=== PATIENT | male | born 1965 | race Caucasian/White ===

== ENCOUNTER 2021-08-12 17:39 | Emergency (ER) | payer SELFPAY ==
[2021-08-12 17:48] VITALS: BP 130/74; PULSE 84; RESP 17; TEMP 36.8; O2SAT 97
[2021-08-12 17:53] VITALS: RESP 17
[2021-08-12] MEDS: Phenylephrine SPRAY 1% 15 ML BTL NS (18:05)
--- NOTE | 2021-08-12 18:06 | W.ED.GENAD ---
Discharge Plan Disposition Patient Disposition: HOME Condition: Good Discharge Details Clinical Impression: Acute anterior epistaxis Primary Care Provider: Marc Hair ED Provider: Thierry Goyal Home Meds and New Rx's Prescriptions: Continued lisinopril-hydrochlorothiazide 1 EACH tablet 1 tab PO DAILY RF: 0 Discharge Instructions Instructions: Nosebleed (ED) Additional Instructions: At this time the nosebleed has been stopped with the nasal packing. Please take this out Thursday afternoon. If you do not feel comfortable taking it out at home we are happy to take it out here. If you notice a small amount of bleeding put the nasal clamp back on. If you notice continued bleeding please call your family doctor or return immediately for reassessment. Please use a humidifier to help keep your nose moist, and apply Vaseline to the inside to prevent future bleeds. If you notice any worsening of your symptoms, or any new symptoms such as vomiting, diarrhea, fever, chills, shortness of breath, chest pain, numbness, weakness, or fainting , please return immediately to the emergency department for reevaluation. Please follow up with your primary care provider as soon as possible for reassessment and reevaluation. As always, it was a pleasure participating in your medical care today. Referrals: Marc Hair [Primary Care Provider] - Medical Decision Making This is a 56-year-old male with a past medical history of hypertension who is not on any blood thinners who presents today for nosebleed. Patient states that 2 hours ago he was blowing his nose pretty hard when he started bleeding out of the right nostril. He has had mild nosebleeds in the past, but never this bad. Patient denies any headache. He denies any other complaints at this time. He denies any difficulty breathing. Exam demonstrates mild anterior nosebleed. Pressure did not stop the bleeding with pressure was removed. Phenylephrine was instilled into the area, and a small Rhino Rocket was placed. Patient had complete resolution of the bleeding after this. He tolerated well. No blood in the posterior oropharynx. Patient stable for discharge. Vital signs stable. Patient feels well. Recommend removal of the Rhino Rocket in 36 to 48 hours, or return for removal here. Discussed red flags which to return. I have extensively reviewed the treatment plan and discharge instructions with the patient. I have addressed all patient concerns at this time. The patient was made aware of what symptoms to monitor for that would warrant a return to the emergency department. Discussed the plan with the patient, they demonstrate verbal understanding and agreement with our assessment and plan at this time. The documentation in this chart was dictated using [employer] dictation software. Please excuse any dictation errors. HPI General Date/Time Provider Initiated Documentation: 08/12/21 17:40. HPI Narrative: This is a 56-year-old male with a past medical history of hypertension who is not on any blood thinners who presents today for nosebleed. Patient states that 2 hours ago he was blowing his nose pretty hard when he started bleeding out of the right nostril. He has had mild nosebleeds in the past, but never this bad. Patient denies any headache. He denies any other complaints at this time. He denies any difficulty breathing. Related Data Home Medications Medication Instructions Recorded Confirmed lisinopril-hydrochlorothiazide 1 tab PO DAILY 09/06/14 08/12/21 Allergies Allergy/AdvReac Type Severity Reaction Status Date / Time No Known Allergies Allergy Unverified 08/12/21 18:03 General Stated Complaint: GenMedical ABDULLAHI: 4 Review of Systems All systems reviewed & are unremarkable except as noted in HPI and below PFSH All Active Problems Acute anterior epistaxis (Acute) Social History Smoking risk assessment performed?: No Alcohol Intake: current Alcohol Intake frequency: a few times a week Alcohol type: beer and hard liquor Do you feel safe at home: Yes Do you feel safe in your relationship?: Yes Exam Narrative Exam Narrative: 1.Const: Well-nourished, Well-developed, appearing stated age 2.Eyes: PERRL, no conjunctival injection, and symmetrical lids. 3.ENT: Atraumatic external nose and ears. Moist MM. Neck: Symmetric, trachea midline, No thyromegaly. Left nostril is unremarkable, right nostril demonstrates mild anterior bleed, no evidence of bleeding down the posterior oropharynx. No deformity. 4.CVS: +S1/S2, No murmurs or gallops. Peripheral pulses 2+ and equal in all extremities. Brisk capillary refill in all extremities. 5.RESP: Unlabored respiratory effort. Clear to auscultation bilaterally. No wheezes rales or rhonchi 6.GI: Soft, Nontender/Nondistended, No hepatosplenomegaly. No guarding or rebound. 7.MSK: Normocephalic/Atraumatic, Extremities w/o deformity or ttp No cyanosis or clubbing, Normal movement of all extremities 8.Skin: Warm, Dry. No rashes or lesions. 9.Neuro: motor power connector II-XII grossly intact. Sensation grossly intact, no focal neurologic deficits. 10.Psych: (AAO) x3. Appropriate mood and affect Course Vital Signs Vital signs: Vital Signs Temperature 36.8 C 08/12/21 17:48 Pulse 84 08/12/21 17:48 Respiratory Rate 17 08/12/21 17:48 Blood Pressure 130/74 08/12/21 17:48 Pulse Oximetry 97 08/12/21 17:48 Temperature 36.8 C 08/12/21 17:48 Temperature Source Temporal Artery Scan 08/12/21 17:48 Pulse 84 08/12/21 17:48 Respiratory Rate 17 08/12/21 17:53 Respiratory Effort Non-Labored 08/12/21 17:53 Respiratory Depth Normal 08/12/21 17:53 Respiratory Pattern Normal 08/12/21 17:53 Blood Pressure 130/74 08/12/21 17:48 Blood Pressure Position Sitting 08/12/21 17:48 Pulse Oximetry 97 08/12/21 17:48 Oxygen Delivery Method Room Air 08/12/21 17:48 Oxygen Flow Rate 0 08/12/21 17:48 Pain Level 0 08/12/21 17:48 PAWSS Have you Been Recently Intoxicated or Drunk Within the Last 30 days?: No Have you Ever Experienced Previous Episodes of Alcohol Withdrawal?: No Have you ever Experienced Withdrawal Seizures?: No Have you ever Experienced Delirium Tremens(DT)s?: No Have you ever undergone Alcohol Rehabilitation Treatment (i.e, inpt ot outpatient treatment programs)?: No Have you ever Experienced Blackouts?: No Have you ever Combined Alcohol with other Downers within the last 90 days?: No Have you ever Combined Alcohol with any other Substance of Abuse during the last 90 days?: No Positive Blood Alcohol level on Presentation? [PCS.BAL]: No Evidence of Increased Autonomic Activity (i.e. HR>120, tremor, sweating, agitation, nausea)?: No Result: 0
== END 2021-08-12 18:14 | disposition home or self-care (01) ==
LOC: ER 18:18
PROVIDERS: Emergency Provider Student in an Organized Health Care Education/Training Program; PCP Physician Assistant
DX: R04.0 Epistaxis (principal)
CPT/HCPCS: 30901

== ENCOUNTER 2022-04-05 09:53 | Emergency (ER) | payer MEDICAID, SELFPAY ==
[2022-04-05] VITALS (29 sets, daily range): BP systolic 179–269; BP diastolic 94–177; PULSE 61–95; RESP 15–29; TEMP 36.2; O2SAT 95–99
--- NOTE | 2022-04-05 10:00 | RT.EKG_ITS ---
APPROVED REPORT Exam: Resting ECG Reason for Exam: high blood pressure Patient Location: E HR:79 bpm ECG Measurements Heart Rate 79 AXIS MT 170 P 42 QRSd 109 QRS -31 QT 428 T 127 QTc 491 Conclusion Sinus rhythm...normal P axis, V-rate 60- 99 Left atrial enlargement...P, P'>60mS, <-0.15mV V1 LVH with secondary repolarization abnormality...multi-LVH criteria, abnrm ST-T
--- NOTE | 2022-04-05 10:00 | DI.CT_ITS ---
Exam(s) CT HEAD WO EXAM: CT HEAD WO CLINICAL HISTORY: headache/ HTN. TECHNIQUE: Imaging Protocol: Axial computed tomography images with coronal and sagittal reformatted images were created and reviewed COMPARISON: No exams were available for comparison FINDINGS: Ventricles and Extra axial spaces: Normal in size and morphology for the patient's age. Hemorrhage: 7 millimeter rounded focus of increased attenuation in the right thalamus with mild surro unding edema. Findings are suspicious for acute hemorrhage. There is additional tiny focus in the i n the left thalamus with so also could represent acute hemorrhage. Cerebral parenchyma: White matter changes of small vessel disease. No significant atrophy. Midline shift: None. Brainstem/Cerebellum: Normal. Calvarium: Normal. Visualized Paranasal sinuses/Mastoids: Opacification of the right frontal sinus. Near-total compassi on opacification of the left maxillary sinus. Mucosal thickening of right maxillary sinus. Mastoid air cells are clear Soft Tissues: Unremarkable. IMPRESSION: Bilateral foci of acute hemorrhage in the thalami, right greater than left RADIATION DOSE DELIVERED: 792.1mGy.cm Total DLP DATA REPOSITORY: All CT scans at this facility are submitted to the National Radiology Data Registry (NRDR) Dose Index Registry (DIR) with the [employer] (ACR). RADIATION OPTIMIZATION: All CT scans at this facility use at least one of these dose optimization te chniques: automated exposure control; mA and/or kV adjustment per patient size (includes targeted exa ms where dose is matched to clinical indication); or iterative reconstruction.
[2022-04-05] MEDS: Labetalol 100 MG/20 ML VIAL 20 MG IVP ×2 (10:31→11:12)
[2022-04-05 10:45] LABS: Abs Immature Grans 0.04 10^3/uL (0.0-0.06); Absolute Basophil Count 0.07 10^3/uL (0.0-0.2); Absolute Eosinophil Count 0.13 10^3/uL (0.0-0.7); Absolute Lymphocyte Count 1.15 10^3/uL (1.2-3.4); Absolute Monocyte Count 0.59 10^3/uL (0.1-0.8); Basophils % 0.6; Eosinophils % 1.2; HCT 39.3 % (40.0-50.0); HGB 13.8 g/dL (13.5-17.5); Immature Grans % 0.4; Lymphocytes % 10.3; MCH 29.9 pg (27.0-33.0); MCHC 35.1 % (32.0-36.0); MCV 85 fL (80-95); MPV 10.2 fL (8.0-11.0); Monocytes % 5.3; Neutrophils % 82.2; Platelet Count 181 10^3/uL (130-400); RBC 4.62 10^6/uL (4.36-5.78); RDW 12.8 % (11.8-14.1); RDW-SD 39.2 fL; WBC 11.18 10^3/uL (4.4-10.8)
[2022-04-05 10:48] LABS: Absolute Neutrophil Count 9.19 10^3/uL (1.2-6.7)
[2022-04-05 11:01] LABS: ALT 51 U/L (16-63); AST 41 U/L (15-37); Albumin 3.9 g/dL (3.4-5.0); Alkaline Phosphatase 71 U/L (46-116); Anion Gap 10.9 mmol/L (3-11); BUN 28 mg/dL (7-18); Bilirubin, Total 1.5 mg/dL (0.2-1.0); CO2 27.1 mmol/L (21.0-32.0); CREATININE 2.2 mg/dL (0.70-1.30); Calcium 9.4 mg/dL (8.5-10.1); Chloride 100 mmol/L (98-107); Glucose 122 mg/dL (74-106); Magnesium 1.9 mg/dL (1.8-2.4); Potassium 3.1 mmol/L (3.5-5.1); Sodium 138 mmol/L (136-145); Total Protein 8.2 g/dL (6.4-8.2)
[2022-04-05 11:06] LABS: Troponin I 76 ng/L (<or=60)
--- NOTE | 2022-04-05 11:46 | DI.VRAD_ITS ---
Addendum created by Flor Corral MD on 04/05/2022 11:51:45 AM EDT: THIS REPORT CONTAINS FINDINGS THAT MAY BE CRITICAL TO PATIENT CARE. The findings were verbally communicated by me to JOSE MCDANIEL via telephone conference at 11:51 AM EDT on 04/05/2022. The findings were acknowledged and understood. Initial report created on 04/05/2022 11:45:20 AM EDT: PROCEDURE INFORMATION: Exam: CT Head Without Contrast Exam date and time: 04/05/2022 11:31 AM Age: 56 years old Clinical indication: Stroke-like symptoms; Headache TECHNIQUE: Imaging protocol: Computed tomography of the head without contrast. Radiation optimization: All CT scans at this facility use at least one of these dose optimization techniques: automated exposure control; mA and/or kV adjustment per patient size (includes targeted exams where dose is matched to clinical indication); or iterative reconstruction. Other technique: STROKE PROTOCOL was implemented. COMPARISON: No relevant prior studies available. FINDINGS: Brain: Hyperattenuating foci are seen in the thalami bilaterally, consistent with hemorrhage, measuring 8 x 7 x 8 mm on the right side, and 3 x 4 x 3 mm on the left side. No evidence of acute territorial infarct. Quiñonez-white matter differentiation is maintained. Mild low attenuation in the periventricular white matter. This is a nonspecific finding most commonly seen in setting of microvascular ischemic change. No midline shift or mass effect. No extra-axial fluid collections or hemorrhage. Cerebral ventricles: No ventriculomegaly. Paranasal sinuses: Marked mucoperiosteal thickening in the maxillary sinuses and right frontal sinus. Moderate mucosal thickening in bilateral ethmoid air cells. No air-fluid levels. Mastoid air cells: Visualized mastoid air cells are well aerated. Bones/joints: Unremarkable. No acute fracture. Soft tissues: Unremarkable. IMPRESSION: 1. Bilateral acute intraparenchymal hemorrhage in the thalami, right greater than left. 2. Chronic sinusitis. ASSESSMENT: ASPECTS ([place] Stroke Program Early CT Score) is 10. Dictated and Authenticated by: Flor Corral MD. Ordering:JESICA Segundo MD
--- NOTE | 2022-04-05 11:48 | ED.GENADUL_ITS ---
Discharge Plan Disposition Patient Disposition: [facility] Condition: Critical Discharge Details Clinical Impression: Acute intracranial hemorrhage, Hypertensive emergency, Hypertension, uncontrolled, Decreased renal function Primary Care Provider: Unknown,Unknown ED Provider: Sanya Ferraro Discharge Data Discharge Date/Time-TO BE ENTERED AT DEPARTURE: 04/05/22 14:33 Medical Decision Making Patient presenting to the emergency department for chief complaint of headache and nausea with some associated blurred vision. Patient states that symptoms started about 6 days ago and was going to be seen last night but decided to wait till this morning. Patient was concerned about possibly having COVID but denies any other symptoms. Patient went to local urgent care who noted significant hypertension with blood pressure 280/180. Patient reports he had previously been on lisinopril/hydrochlorothiazide for his high blood pressure but his physician retired in 2017 and has never seen anybody or resume medication since running out. Patient was immediately referred to the emergency department. Upon arrival patient had blood pressure of 263/177. Physical exam showed no acute neurodeficit, normal gait, no sensory deficit, normal cranial nerve exam. And concern for hypertensive urgency/emergency. We will plan on checking labs, EKG, and CT imaging of the head. Pending results we will give IV labetalol with continuous monitoring. Patient is in no signs of respiratory failure and is protecting airway Please see physician interpretation for full interpretation of EKG but patient is in sinus rhythm, rate of 79. No findings to show STEMI but there are abnormalities noted with machine read of LVH Review of patient's labs show a slight elevation of WBC 11.18 along with elevated neutrophils and low lymphocytes CBC is otherwise unremarkable. Chemistry shows potassium of 3.1, BUN of 28 creatinine of 2.2 with a GFR of 30. Previous labs from 2017 showed GFR of 55. Glucose is 122 total bilirubin of 1.5 AST of 41 otherwise unremarkable CMP. Initial troponin is slightly elevated at 76 which I feel is secondary to hypertension but will continue to monitor and repeat. Patient's pressure still remains significantly elevated so we will give additional dose of labetalol CT imaging shows acute intraparenchymal hemorrhage bilateral in the thalami, right greater than left. I am significantly concerned due to multiple organ damage noted by elevated troponin, acute hemorrhage, and decreased renal function. We will start patient on nicardipine drip due to the acute hemorrhage but I do feel that patient requires ICU admission to tertiary care facility. [facility] was contacted with findings and request for admission and consultation. Patient remained stable Spoke with neuro ICU critical care team and after discussion of patient's case and findings they agreed to accept patient in transfer to the neuro ICU.. Patient continued on nicardipine with target systolic pressure of 180 as per neurologist recommendation. We did have difficulty finding a button sewing machine operator to transfer patient down to [facility] after contacting multiple services with no critical care available to transfer patient we did contact [facility] for emergent transfer down. Pending transfer patient did develop worsening headache. Patient remains without any worsening neurological symptoms so we will hold off on reimaging patient's had but will ensure that the head of bed is at 30 degrees, give Zofran, and give acetaminophen. Patient left in stable condition with patient being on nicardipine drip and continued headache and nausea but no worsening focal neurological findings. Second troponin of 81 was communicated to [facility] transfer center who stated they would inform the neuro ICU unit of lab finding Imaging Data Radiologic Study: Attestation: I personally reviewed and interpreted this imaging study as follows: Imaging: CT Scan Radiologist's impression: FINDINGS: Brain: Hyperattenuating foci are seen in the thalami bilaterally, consistent with hemorrhage, measuring 8 x 7 x 8 mm on the right side, and 3 x 4 x 3 mm on the left side. No evidence of acute territorial infarct. Quiñonez-white matter differentiation is maintained. Mild low attenuation in the periventricular white matter. This is a nonspecific finding most commonly seen in setting of microvascular ischemic change. No midline shift or mass effect. No extra-axial fluid collections or hemorrhage. Cerebral ventricles: No ventriculomegaly. Paranasal sinuses: Marked mucoperiosteal thickening in the maxillary sinuses and right frontal sinus. Moderate mucosal thickening in bilateral ethmoid air cells. No air-fluid levels. Mastoid air cells: Visualized mastoid air cells are well aerated. Bones/joints: Unremarkable. No acute fracture. Soft tissues: Unremarkable. IMPRESSION: 1. Bilateral acute intraparenchymal hemorrhage in the thalami, right greater than left. 2. Chronic sinusitis. Lab Data Lab results reviewed: Yes I reviewed the patient's lab results. HPI General Mode of arrival: ambulatory . Date/Time Provider Initiated Documentation: 04/05/22 10:14 . Limitations to Documentation: no limitations . Information obtained by: patient, family and RN notes reviewed . History of Present Illness 56 year old M presents to the emergency department with the chief complaint of Headache, nausea, described as moderate, with intensity rated at 7. Quality is described as aching, and is localized to the head. Patient reports no radiation. Patient started experiencing this day(s) (6) and it has been constant. No relieving factors improve symptom(s), No exacerbating factors reported . Patient did receive the following treatments prior to arrival, none Related Data Allergies Allergy/AdvReac Type Severity Reaction Status Date / Time No Known Allergies Allergy Unverified 04/05/22 09:08 General Stated Complaint: GenMedical ADBULLAHI: 3 Review of Systems Constitutional Constitutional: Denies body ache(s), Denies chills, Denies fever(s) and Reports headache(s) Eyes Eyes: Reports blurry vision and Denies loss of vision ENT Ears, Nose, Mouth, and Throat: Denies dizziness, Reports headache(s), Denies nasal discharge and Denies neck pain Cardiovascular Cardiovascular: Denies chest pain, Denies syncope and Denies dyspnea Respiratory Respiratory: Denies cough and Denies dyspnea Gastrointestinal Gastrointestinal: Denies abdominal pain, Reports nausea and Denies vomiting Genitourinary Genitourinary: Reports difficulty urinating (2 weeks ago now resolved) Musculoskeletal Musculoskeletal: Denies abnormal gait, Denies back pain and Denies neck pain Integumentary/Breasts Skin/Breast: Denies rash Neurologic Neurologic: Reports as per HPI, Denies abnormal speech, Denies abnormal gait, Denies confusion, Denies dizziness, Denies syncope, Reports headache(s), Denies lack of coordination, Denies localized weakness, Denies loss of vision, Denies memory loss, Denies sensory deficit and Denies paresthesias Psychiatric Psychiatric: Denies confusion and Denies memory loss Endocrine Endocrine: Denies polyuria PFSH All Active Problems (Updated 04/05/22 @ 12:50 by Sanya Ferraro NP) Acute intracranial hemorrhage (Acute) Hypertensive emergency (Acute) Hypertension, uncontrolled (Acute) Decreased renal function (Acute) Acute anterior epistaxis (Acute) Social History Smoking/Tobacco Use Status: Never Smoking risk assessment performed?: Yes Alcohol Intake: current Alcohol Intake frequency: a few times a month Alcohol type: beer and hard liquor Drug use: Never Substance use type: does not use Do you feel safe at home: Yes Do you feel safe in your relationship?: Yes Exam Const General: cooperative, no acute distress and well groomed Orientation: alert, awake and oriented x3 HENMT Head: normal to inspection Ears: hearing grossly normal bilaterally and TM's normal bilaterally Mouth: oral mucosae normal and moist mucous membranes Throat: posterior oropharynx normal Eyes Visual Smith: normal visual smith by confrontation Alignment and Position: alignment normal Periorbital: periorbital findings normal Eyelids: eyelids normal Sclera: sclerae normal Cornea: corneas normal Pupils: PERRL EOM: EOM intact bilaterally Neck Neck: normal visual inspection, full ROM and no meningeal signs Resp Effort & Inspection: normal respiratory effort and able to speak in complete sentences Auscultation: clear to auscultation bilaterally Cardio Rate: regular rate Rhythm: regular rhythm Heart Sounds: S1 normal and S2 normal Neuro General: patient alert, patient awake, patient oriented x3, gait normal, tone normal, moves all extremities, CN's II-XI intact bilaterally and not confused Cognition: normal cognition Speech: speech normal Motor: muscle tone normal throughout, strength 5/5 throughout, no pronator drift, no movement abnormalities noted and no fasciculations Sensory Exam: no sensory deficits noted Coordination: Does not sway with eyes open Course Vital Signs Vital signs: Vital Signs Temperature 36.2 C L 04/05/22 10:05 Pulse 92 H 04/05/22 10:05 Respiratory Rate 18 04/05/22 10:05 Blood Pressure 263/177 H 04/05/22 10:05 Pulse Oximetry 98 04/05/22 10:05 Temperature 36.2 C L 04/05/22 10:05 Temperature Source Temporal Artery Scan 04/05/22 10:05 Pulse 64 04/05/22 11:12 Pulse 65 04/05/22 11:00 Respiratory Rate 20 04/05/22 11:10 Respiratory Effort Non-Labored 04/05/22 10:48 Respiratory Depth Normal 04/05/22 10:48 Respiratory Pattern Normal 04/05/22 10:48 Blood Pressure 235/136 H 04/05/22 11:12 Blood Pressure Mean 161 04/05/22 11:00 Blood Pressure Position Sitting 04/05/22 10:05 Pulse Oximetry 98 04/05/22 11:10 Oxygen Delivery Method Room Air 04/05/22 11:10 Oxygen Flow Rate 0 04/05/22 11:10 Pain Level 0 04/05/22 10:05 Lab/Test Results Lab/Test Results: Laboratory Tests Range/Units 04/05/22 04/05/22 10:35 10:35 WBC (4.4-10.8) 10^3/uL 11.18 H RBC (4.36-5.78) 10^6/uL 4.62 Hgb (13.5-17.5) g/dL 13.8 Hct (40.0-50.0) % 39.3 L MCV (80-95) fL 85 MCH (27.0-33.0) pg 29.9 MCHC (32.0-36.0) % 35.1 RDW (11.8-14.1) % 12.8 Plt Count (130-400) 10^3/uL 181 MPV (8.0-11.0) fL 10.2 Immature Gran % 0.4 Neutrophils % 82.2 Lymphocytes % 10.3 Monocytes % 5.3 Eosinophils % 1.2 Basophils % 0.6 Nucleated RBC % (0.0-0.3) % 0.0 Absolute Neutrophils (1.2-6.7) 10^3/uL 9.19 H Absolute Lymphocytes (1.2-3.4) 10^3/uL 1.15 L Absolute Monocytes (0.1-0.8) 10^3/uL 0.59 Absolute Eosinophils (0.0-0.7) 10^3/uL 0.13 Absolute Basophils (0.0-0.2) 10^3/uL 0.07 Sodium (136-145) mmol/L 138 Potassium (3.5-5.1) mmol/L 3.1 L Chloride (98-107) mmol/L 100 Carbon Dioxide (21.0-32.0) mmol/L 27.1 Anion Gap (3-11) mmol/L 10.9 BUN (7-18) mg/dL 28 H Creatinine (0.70-1.30) mg/dL 2.2 H Estimated GFR/1.73 m2 (mL/min/1.73m2) 30.90 Glucose (74-106) mg/dL 122 H Calcium (8.5-10.1) mg/dL 9.4 Magnesium (1.8-2.4) mg/dL 1.9 Total Bilirubin (0.2-1.0) mg/dL 1.5 H AST (15-37) U/L 41 H ALT (16-63) U/L 51 Alkaline Phosphatase (46-116) U/L 71 Troponin I (<or=60) ng/L 76 H* Total Protein (6.4-8.2) g/dL 8.2 Albumin (3.4-5.0) g/dL 3.9 Critical Care Time Critical Care Time Critical Care Time: Yes Total Critical Care Time: 30 Attestation: Due to intracranial hemorrhage and hypertensive urgency/emergency with high probability of imminent or life threatening deterioration in the patient?s condition without intervention and treatment. Time spent documenting, reviewing labs and radiographs, monitoring titration/ Vital signs, and speaking with [facility] neuro intensive care unit medical staff.
[2022-04-05] MEDS: niCARdipine 25 MG in Normal Saline 240 ML 50 MG IV (12:13)
[2022-04-05 12:46] LABS: Source Nasal/Nares
[2022-04-05 13:31] LABS: COVID-19 PCR Negative (Negative)
[2022-04-05] MEDS: Ondansetron 4 MG/2 ML VIAL IVP (13:47)
[2022-04-05 14:48] LABS: Troponin I 81 ng/L (<or=60)
== END 2022-04-05 14:33 | disposition short-term general hospital (02) ==
PROVIDERS: Emergency Provider Nurse Practitioner Family
DX: I61.8 Other nontraumatic intracerebral hemorrhage (principal); I16.1 Hypertensive emergency; I10 Essential (primary) hypertension; Z20.822 Contact with and (suspected) exposure to COVID-19; N28.9 Disorder of kidney and ureter, unspecified
CPT/HCPCS: 36415; 80053; 87635; 93005; 96365; 96366; 96375; 96376; 99291; 70450; 83735; 84484; 85025; 93010; J0131; J2405; J3490

== ENCOUNTER 2022-04-30 16:25 | Outpatient (REF) | payer MEDICAID, SELFPAY ==
[2022-04-30 17:38] LABS: Anion Gap 10.8 mmol/L (3-11); BUN 42 mg/dL (7-18); CO2 24.2 mmol/L (21.0-32.0); CREATININE 2.6 mg/dL (0.70-1.30); Chloride 99 mmol/L (98-107); Estimated GFR 27.72 (mL/min/1.73m2); Glucose 111 mg/dL (74-106); Potassium 4.9 mmol/L (3.5-5.1); Sodium 134 mmol/L (136-145)
== END 2022-04-30 16:26 | disposition home or self-care (01) ==
LOC: LBN 16:25
PROVIDERS: PCP Nurse Practitioner Family; Visit Provider Nurse Practitioner Family
DX: N28.9 Disorder of kidney and ureter, unspecified (principal)
CPT/HCPCS: 80048

== ENCOUNTER 2022-06-04 02:48 | Outpatient (CLI) | payer MEDICAID, SELFPAY ==
[2022-06-04 12:30] LABS: Abs Immature Grans 0.03 10^3/uL (0.0-0.06); Absolute Basophil Count 0.07 10^3/uL (0.0-0.2); Absolute Eosinophil Count 0.29 10^3/uL (0.0-0.7); Absolute Lymphocyte Count 1.09 10^3/uL (1.2-3.4); Absolute Monocyte Count 0.49 10^3/uL (0.1-0.8); Absolute Neutrophil Count 6.42 10^3/uL (1.2-6.7); Basophils % 0.8; Eosinophils % 3.5; HCT 38.1 % (40.0-50.0); HGB 12.8 g/dL (13.5-17.5); Immature Grans % 0.4; MCH 30.3 pg (27.0-33.0); MCHC 33.6 % (32.0-36.0); MCV 90 fL (80-95); Monocytes % 5.8; Neutrophils % 76.5; Platelet Count 300 10^3/uL (130-400); RBC 4.23 10^6/uL (4.36-5.78); RDW 12.7 % (11.8-14.1); RDW-SD 41.7 fL; WBC 8.39 10^3/uL (4.4-10.8)
[2022-06-04 12:41] LABS: Hemoglobin A1C 5.5 % (<5.7)
[2022-06-04 13:27] LABS: ALT 19 U/L (16-63); AST 10 U/L (15-37); Albumin 3.9 g/dL (3.4-5.0); Alkaline Phosphatase 76 U/L (46-116); Anion Gap 9.1 mmol/L (3-11); BUN 27 mg/dL (7-18); Bilirubin, Total 0.5 mg/dL (0.2-1.0); CO2 27.9 mmol/L (21.0-32.0); CREATININE 2.5 mg/dL (0.70-1.30); Calcium 9.5 mg/dL (8.5-10.1); Calculated LDL 54 mg/dL (<100); Chloride 102 mmol/L (98-107); Cholesterol 105 mg/dL (<200); Estimated GFR 28.87 (mL/min/1.73m2); Glucose 110 mg/dL (74-106); HDL Cholesterol 40 mg/dL (40-60); Potassium 4.1 mmol/L (3.5-5.1); Sodium 139 mmol/L (136-145); Total Protein 8.4 g/dL (6.4-8.2); Triglyceride 57 mg/dL (<150)
== END 2022-06-04 02:49 | disposition home or self-care (01) ==
LOC: LOS 02:48
PROVIDERS: PCP Nurse Practitioner Family; Visit Provider Nurse Practitioner Family
DX: I10 Essential (primary) hypertension (principal); N18.4 Chronic kidney disease, stage 4 (severe); R73.09 Other abnormal glucose; I67.83 Posterior reversible encephalopathy syndrome; I61.8 Other nontraumatic intracerebral hemorrhage
CPT/HCPCS: 36415; 80053; 80061; 83036; 84443; 85025

== ENCOUNTER → 2022-06-06 00:22 | Outpatient (CLI) | payer MEDICAID, SELFPAY ==
--- OUTSIDE RECORDS SUMMARY | 2022-06-06 00:34 | XMS_ITS | Continuity of Care Document ---
:1965 Author Organization [facility] Address Unavailable , Care Team Providers Name Role Phone Physician, No PCP Primary Care Physician Unavailable Encounter [facility] [id number] Date(s): 04/14/22 - 04/24/22 [facility] [address] [place] [address]- Encounter Diagnosis Hypertensive emergency (Discharge Diagnosis) - 04/14/22 MARY (acute kidney injury) (Discharge Diagnosis) - 04/14/22 Other forms of acute ischemic heart disease (Final) - Acute kidney failure, unspecified (Final) - Other fatigue (Final) - Obstructive sleep apnea (adult) (pediatric) (Final) - Retention of urine, unspecified (Final) - Acquired absence of right finger(s) (Final) - Family history of ischemic heart disease and other diseases of the circulatory system (Final) - Thalamic hemorrhage (Discharge Diagnosis) - 04/14/22 Other nontraumatic intracerebral hemorrhage (Final) - Other symptoms and signs involving cognitive functions and awareness (Final) - Hypertensive retinopathy, bilateral (Final) - Encounter for other specified aftercare (Final) - Other chronic pain (Final) - Hypertensive chronic kidney disease with stage 1 through stage 4 chronic kidney disease, or unspecified chronic kidney disease (Final) - Posterior reversible encephalopathy syndrome (Final) - Hypertensive emergency (Final) - Chronic kidney disease, stage 3 unspecified (Final) - PRES (posterior reversible encephalopathy syndrome) (Discharge Diagnosis) - 04/14/22 Discharge Disposition: Home Care with Home Health Attending Physician: Osiris Rankin MD Admitting Physician: Osiris Rankin MD Allergies, Adverse Reactions, Alerts No Known Allergies Assessment and Plan Extracted from: Title: 1400 discharge Author: Nu Coello RN Date: 04/24/22 Physical Assessment: VSS this AM, labs reviewed and MD approv ed discharge with follow up with PCP tomorrow Skin: no issues Psychosocial / Cognitive: pleasant and cooperative, memory difficu lties at times, continues to need reminders for safety Mobility: walks with FWW for stability and support r/t old left leg injury, supervision, gait is asymmetrical but steady Pain: denies pain Safety: call light in reach at all times and pt generally ringing appropriately, needs reminders for safety when transferring Medication needs / Diet: no issues taking pills and has a fair ap petite at meals Bowel / Bladder: continent, having regular BM's and refus ed colace this am Working on...: discharge materials revie wed with patient and sister who both verbalized understanding- will call if they have further questions, pt ambulated out to private vehicle in good spirits Extracted from: Title: SOAP Note: Rehab Note Author: Osiris Rankin MD Date: Health Status Allergies: Allergic Reactions (All) No Known Allergies, Allergies (1) Active Severity Reaction No Known Allergies None Documented Medications Current medications: (Selected) Inpatient Medications Ordered Colace: 100 mg = 1 cap(s), Oral, BID Dulcolax Laxative: 10 mg = 1 supp, Per r ectum, Daily, PRN: Constipation Flomax: 0.8 mg = 2 cap(s), Oral, Daily MiraLax: 17 gm = 1 packet(s), Oral, Judie y, PRN: Constipation Normal Saline 1,000 mL: 100 mL/hr, IV Norvasc: 10 mg = 2 tab(s), Oral, Daily acetaminophen: 650 mg = 2 tab(s), Oral, q4hr, PRN: Pain atorvastatin: 20 mg = 1 tab(s), Oral, HS bacitracin zinc 500 units/g topical oint ment: 1 annabelle, TOP, q8hr, PRN: Other (see comment) heparin: 5,000 unit(s) = 0.5 mL, Subcuta neous, q8hr labetalol: 300 mg = 3 tab(s), Oral, TID senna: 17.2 mg = 2 tab(s), Oral, HS Suspended lisinopril: 20 mg = 1 tab(s), Oral, Judie y Prescriptions Prescribed Flomax 0.4 mg oral capsule: 0.8 mg = 2 c ap(s), Oral, Daily, 60 cap(s), 0 Refill(s) Norvasc 10 mg oral tablet: 10 mg = 1 tab (s), Oral, Daily, 30 tab(s), 0 Refill(s) atorvastatin 20 mg oral tablet: 20 mg = 1 tab(s), Oral, HS, 30 tab(s), 0 Refill(s) labetalol 100 mg oral tablet: 300 mg = 3 tab(s), Oral, TID, 270 tab(s), 0 Refill(s) spironolactone 25 mg oral tablet: 25 mg = 1 tab(s), Oral, Daily, 30 tab(s), 0 Refill(s) Documented Medications Documented Colace 100 mg oral capsule: 100 mg = 1 c ap(s), Oral, BID, PRN: Constipation, 0 Refill(s) acetaminophen 325 mg oral tablet: 650 mg = 2 tab(s), Oral, q4hr, PRN: Pain, 0 Refill(s) senna 8.6 mg oral tablet: 17.2 mg = 2 ta b(s), Oral, HS, PRN: Constipation, 0 Refill(s), Medications (12) Active Scheduled: (7) amLODIPine 5 mg Tab [[facility]] 10 mg 2 tab( s), Oral, Daily atorvastatin 20 mg Tab [[facility]] 20 mg 1 t ab(s), Oral, HS docusate sodium 100 mg Cap [[facility]] 100 m g 1 cap(s), Oral, BID heparin 10,000 units/mL Inj Frances [[facility]] 5,000 unit(s) 0.5 mL, Subcutaneous, q8hr labetalol 100 mg Tab [[facility]] 300 mg 3 ta b(s), Oral, TID senna 8.6 mg Tab [[facility]] 17.2 mg 2 tab(s ), Oral, HS tamsulosin 0.4 mg Oral Cap [[facility]] 0.8 m g 2 cap(s), Oral, Daily Continuous: (1) Sodium Chloride 0.9% 1,000 mL 1,000 mL, IV, 100 mL/hr PRN: (4) acetaminophen 325 mg Tab [[facility]] 650 mg 2 tab(s), Oral, q4hr bacitracin zinc 500 units/g Top Oint UD [[facility]] 1 annabelle, TOP, q8hr bisacodyl 10 mg Supp [[facility]] 10 mg 1 sup p, Per rectum, Daily polyethylene glycol 3350 Oral Pwdr Recon [[facility]] 17 gm 1 packet(s), Oral, Daily . Problem list: All Problems HTN (hypertension) / [id number] / Confir med, Active Problems (1) HTN (hypertension) Impression and Plan #bilateral thalamic IPH #PRES/HTN BP control on multiple meds BPs 110-150 since admission Continue BP meds per nephrology: lisinop ril norvasc chlorthalidone labetalol spironolactone and flomax. Per nephrology, lisinopril can be added up to 60 mg if needed, and since admission, tried increase from 20 to 40 mg, but given increased C r, reduced back to 20, and then stopped due to elevated Cr. BPs still 110-150, well controlled. Given bump in Cr and soft BPs, chlorthalidone and spironolactone stopped PT OT [employer] daily; CGA currently for mobil ity and ADLs; anticipate will be independent at time of discharge 04/23 #DVT prophylaxis anti-embolus stockings, continue heparin for DVT prophylaxis. #urinary retention started flomax, now at 0.8 PVRs 600-800 on admission, but last PVR 0, and then 100-200cc not requiring cathing any loner #MARY, CKD stage 3 sec to HTN ?new baseline Cr approx 2.2? s/p IVF and increased po hydration today holding lisinopril, and now will stop ch lorthalidone and spironolactone next BMP in am continue to encourage po fluids and avoi d nephrotoxins recommend recheck BMP in week after disc harge and ongoing monitoring/f/u with PCP #dispo home 04/23 after 10 d LOS, delayed until tomorrow 04/24 given bump in Cr f/u PCP neuro cards nephrology ophtho (r etina specialist recommended per ) #Potential or actual clinically signific ant medication issues addressed per CMS regulations: YES chlorthalidone and spironolactone st opped Did the facility complete prescribed/rec ommended actions in response to the identified potentially clinically significant medication issues by midnight of the next calendar day? YES Extracted from: Title: SOAP Note: Rehab Note Author: Osiris Rankin MD Date: Health Status Allergies: Allergic Reactions (All) No Known Allergies, Allergies (1) Active Severity Reaction No Known Allergies None Documented Medications Current medications: (Selected) Inpatient Medications Ordered Colace: 100 mg = 1 cap(s), Oral, BID Dulcolax Laxative: 10 mg = 1 supp, Per r ectum, Daily, PRN: Constipation Flomax: 0.8 mg = 2 cap(s), Oral, Daily MiraLax: 17 gm = 1 packet(s), Oral, Judie y, PRN: Constipation Normal Saline 1,000 mL: 100 mL/hr, IV Norvasc: 10 mg = 2 tab(s), Oral, Daily acetaminophen: 650 mg = 2 tab(s), Oral, q4hr, PRN: Pain atorvastatin: 20 mg = 1 tab(s), Oral, HS bacitracin zinc 500 units/g topical oint ment: 1 annabelle, TOP, q8hr, PRN: Other (see comment) chlorthalidone: 25 mg = 1 tab(s), Oral, Daily heparin: 5,000 unit(s) = 0.5 mL, Subcuta neous, q8hr labetalol: 300 mg = 3 tab(s), Oral, TID senna: 17.2 mg = 2 tab(s), Oral, HS spironolactone: 25 mg = 1 tab(s), Oral, Daily Suspended lisinopril: 20 mg = 1 tab(s), Oral, Judie y, Medications (14) Active Scheduled: (9) amLODIPine 5 mg Tab [[facility]] 10 mg 2 tab( s), Oral, Daily atorvastatin 20 mg Tab [[facility]] 20 mg 1 t ab(s), Oral, HS chlorthalidone 25 mg Tab [[facility]] 25 mg 1 tab(s), Oral, Daily docusate sodium 100 mg Cap [[facility]] 100 m g 1 cap(s), Oral, BID heparin 10,000 units/mL Inj Frances [[facility]] 5,000 unit(s) 0.5 mL, Subcutaneous, q8hr labetalol 100 mg Tab [[facility]] 300 mg 3 ta b(s), Oral, TID senna 8.6 mg Tab [[facility]] 17.2 mg 2 tab(s ), Oral, HS spironolactone 25 mg Tab [[facility]] 25 mg 1 tab(s), Oral, Daily tamsulosin 0.4 mg Oral Cap [[facility]] 0.8 m g 2 cap(s), Oral, Daily Continuous: (1) Sodium Chloride 0.9% 1,000 mL 1,000 mL, IV, 100 mL/hr PRN: (4) acetaminophen 325 mg Tab [[facility]] 650 mg 2 tab(s), Oral, q4hr bacitracin zinc 500 units/g Top Oint UD [[facility]] 1 annabelle, TOP, q8hr bisacodyl 10 mg Supp [[facility]] 10 mg 1 sup p, Per rectum, Daily polyethylene glycol 3350 Oral Pwdr Recon [[facility]] 17 gm 1 packet(s), Oral, Daily . Problem list: All Problems HTN (hypertension) / [id number] / Confir med, Active Problems (1) HTN (hypertension) Impression and Plan #bilateral thalamic IPH #PRES/HTN BP control on multiple meds BPs 110-150 since admission Continue BP meds per nephrology: lisinop ril norvasc chlorthalidone labetalol spironolactone and flomax. Per nephrology, lisinopril can be added up to 60 mg if needed, and since admission, tried increase from 20 to 40 mg, but given increased C r, reduced back to 20, and then stopped due to elevated Cr. BPs still 110-150, well controlled. PT OT [employer] daily; CGA currently for mobil ity and ADLs; anticipate will be independent at time of discharge 04/23 #DVT prophylaxis anti-embolus stockings, continue heparin for DVT prophylaxis. #urinary retention started flomax, now at 0.8 PVRs 600-800 on admission, but last PVR 0, and then 100-200cc not requiring cathing any loner #MARY, CKD stage 3 sec to HTN Cr stable now at approx 2.2, after IVF a nd holding lisinopril likely new baseline continue to encourage po fluids and avoi d nephrotoxins recommend recheck BMP in week after disc harge and ongoing monitoring/f/u with PCP #dispo home 04/23 after 10 d LOS f/u PCP neuro cards nephrology ophtho (r etina specialist recommended per ) #Potential or actual clinically signific ant medication issues addressed per CMS regulations: NO Extracted from: Title: SOAP Note: Rehab Note Author: Osiris Rankin MD Date: Health Status Allergies: Allergic Reactions (All) No Known Allergies, Allergies (1) Active Severity Reaction No Known Allergies None Documented Medications Current medications: (Selected) Inpatient Medications Ordered Colace: 100 mg = 1 cap(s), Oral, BID Dulcolax Laxative: 10 mg = 1 supp, Per r ectum, Daily, PRN: Constipation Flomax: 0.8 mg = 2 cap(s), Oral, Daily MiraLax: 17 gm = 1 packet(s), Oral, Judie y, PRN: Constipation Normal Saline 1,000 mL: 100 mL/hr, IV Norvasc: 10 mg = 2 tab(s), Oral, Daily acetaminophen: 650 mg = 2 tab(s), Oral, q4hr, PRN: Pain atorvastatin: 20 mg = 1 tab(s), Oral, HS bacitracin zinc 500 units/g topical oint ment: 1 annabelle, TOP, q8hr, PRN: Other (see comment) chlorthalidone: 25 mg = 1 tab(s), Oral, Daily heparin: 5,000 unit(s) = 0.5 mL, Subcuta neous, q8hr labetalol: 300 mg = 3 tab(s), Oral, TID senna: 17.2 mg = 2 tab(s), Oral, HS spironolactone: 25 mg = 1 tab(s), Oral, Daily Suspended lisinopril: 20 mg = 1 tab(s), Oral, Judie y, Medications (14) Active Scheduled: (9) amLODIPine 5 mg Tab [[facility]] 10 mg 2 tab( s), Oral, Daily atorvastatin 20 mg Tab [[facility]] 20 mg 1 t ab(s), Oral, HS chlorthalidone 25 mg Tab [[facility]] 25 mg 1 tab(s), Oral, Daily docusate sodium 100 mg Cap [[facility]] 100 m g 1 cap(s), Oral, BID heparin 10,000 units/mL Inj Frances [[facility]] 5,000 unit(s) 0.5 mL, Subcutaneous, q8hr labetalol 100 mg Tab [[facility]] 300 mg 3 ta b(s), Oral, TID senna 8.6 mg Tab [[facility]] 17.2 mg 2 tab(s ), Oral, HS spironolactone 25 mg Tab [[facility]] 25 mg 1 tab(s), Oral, Daily tamsulosin 0.4 mg Oral Cap [[facility]] 0.8 m g 2 cap(s), Oral, Daily Continuous: (1) Sodium Chloride 0.9% 1,000 mL 1,000 mL, IV, 100 mL/hr PRN: (4) acetaminophen 325 mg Tab [[facility]] 650 mg 2 tab(s), Oral, q4hr bacitracin zinc 500 units/g Top Oint UD [[facility]] 1 annabelle, TOP, q8hr bisacodyl 10 mg Supp [[facility]] 10 mg 1 sup p, Per rectum, Daily polyethylene glycol 3350 Oral Pwdr Recon [[facility]] 17 gm 1 packet(s), Oral, Daily . Problem list: All Problems HTN (hypertension) / [id number] / Confir med, Active Problems (1) HTN (hypertension) Impression and Plan #bilateral thalamic IPH #PRES/HTN BP control on multiple meds BPs 120-150 since admission Continue BP meds per nephrology: lisinop ril norvasc chlorthalidone labetalol spironolactone and flomax. Per nephrology, lisinopril can be added up to 60 mg if needed, and since admission, tried increase from 20 to 40 mg, but given increased C r, reduced back to 20, and then stopped due to Cr. PT OT [employer] daily; CGA currently for mobil ity and ADLs; anticipate will be independent at time of discharge next week #DVT prophylaxis anti-embolus stockings, continue heparin for DVT prophylaxis. #urinary retention started flomax, now at 0.8 PVRs 600-800 on admission, but last PVR 0, and then 100-200cc not requiring cathing any loner #MARY, CKD stage 3 sec to HTN Cr stable now at approx 2.2, after IVF a nd holding lisinopril likely new baseline continue to encourage po fluids and avoi d nephrotoxins recommend recheck BMP in week after disc harge and ongoing monitoring/f/u with PCP #dispo home 04/23 after 10 d LOS f/u PCP neuro cards nephrology ophtho (r etina specialist recommended per ) #Potential or actual clinically signific ant medication issues addressed per [facility] regulations: YES lisinopril stopped Did the facility complete prescribed/rec ommended actions in response to the identified potentially clinically significant medication issues by midnight of the next calendar day? YES Extracted from: Title: SOAP Note: Rehab Note Author: Osiris Rankin MD Date: Health Status Allergies: Allergic Reactions (All) No Known Allergies, Allergies (1) Active Severity Reaction No Known Allergies None Documented Medications Current medications: (Selected) Inpatient Medications Ordered Colace: 100 mg = 1 cap(s), Oral, BID Dulcolax Laxative: 10 mg = 1 supp, Per r ectum, Daily, PRN: Constipation Flomax: 0.8 mg = 2 cap(s), Oral, Daily MiraLax: 17 gm = 1 packet(s), Oral, Judie y, PRN: Constipation Normal Saline 1,000 mL: 100 mL/hr, IV Norvasc: 10 mg = 2 tab(s), Oral, Daily acetaminophen: 650 mg = 2 tab(s), Oral, q4hr, PRN: Pain atorvastatin: 20 mg = 1 tab(s), Oral, HS bacitracin zinc 500 units/g topical oint ment: 1 annabelle, TOP, q8hr, PRN: Other (see comment) chlorthalidone: 25 mg = 1 tab(s), Oral, Daily heparin: 5,000 unit(s) = 0.5 mL, Subcuta neous, q8hr labetalol: 300 mg = 3 tab(s), Oral, TID lisinopril: 20 mg = 1 tab(s), Oral, Judie y senna: 17.2 mg = 2 tab(s), Oral, HS spironolactone: 25 mg = 1 tab(s), Oral, Daily, Medications (15) Active Scheduled: (10) amLODIPine 5 mg Tab [[facility]] 10 mg 2 tab( s), Oral, Daily atorvastatin 20 mg Tab [[facility]] 20 mg 1 t ab(s), Oral, HS chlorthalidone 25 mg Tab [[facility]] 25 mg 1 tab(s), Oral, Daily docusate sodium 100 mg Cap [[facility]] 100 m g 1 cap(s), Oral, BID heparin 10,000 units/mL Inj Frances [[facility]] 5,000 unit(s) 0.5 mL, Subcutaneous, q8hr labetalol 100 mg Tab [[facility]] 300 mg 3 ta b(s), Oral, TID lisinopril 20 mg Tab [[facility]] 20 mg 1 tab (s), Oral, Daily senna 8.6 mg Tab [[facility]] 17.2 mg 2 tab(s ), Oral, HS spironolactone 25 mg Tab [[facility]] 25 mg 1 tab(s), Oral, Daily tamsulosin 0.4 mg Oral Cap [[facility]] 0.8 m g 2 cap(s), Oral, Daily Continuous: (1) Sodium Chloride 0.9% 1,000 mL 1,000 mL, IV, 100 mL/hr PRN: (4) acetaminophen 325 mg Tab [[facility]] 650 mg 2 tab(s), Oral, q4hr bacitracin zinc 500 units/g Top Oint UD [[facility]] 1 annabelle, TOP, q8hr bisacodyl 10 mg Supp [[facility]] 10 mg 1 sup p, Per rectum, Daily polyethylene glycol 3350 Oral Pwdr Recon [[facility]] 17 gm 1 packet(s), Oral, Daily . Problem list: All Problems HTN (hypertension) / [id number] / Confir med, Active Problems (1) HTN (hypertension) Impression and Plan #bilateral thalamic IPH #PRES/HTN BP control on multiple meds BPs 120-150 since admission Continue BP meds per nephrology: lisinop ril norvasc chlorthalidone labetalol spironolactone and flomax. Per nephrology, lisinopril can be added up to 60 mg if needed, and since admission, tried increase from 20 to 40 mg, but given increased C r, reduced back to 20, follow BMP PT OT [employer] daily; CGA currently for mobil ity and ADLs; anticipate will be independent at time of discharge next week #DVT prophylaxis anti-embolus stockings, continue heparin for DVT prophylaxis. #urinary retention started flomax, now at 0.8 PVRs 600-800 on admission, but last PVR 0, and then 100-200cc continue to follow PVRs and cath as need ed #MARY, CKD sec to HTN Cr 2.2-2.4 since admission, stable from discharge but up from 1.6 in the days prior to discharge from continue to encourage po fluids and avoi d nephrotoxins lisinopril reduced to 20 started IVF 04/18 recheck BMP 04/19; if no improvement in C r after IVF, will ask hospitalist to consult #dispo home 04/23 after 10 d LOS f/u PCP neuro cards nephrology #Potential or actual clinically signific ant medication issues addressed per CMS regulations: NO ADDENDUM 15 min >50% spent on counsellin g and coordination of care Extracted from: Title: SOAP Note: Rehab Note Author: Osiris Rankin MD Date: Health Status Allergies: Allergic Reactions (All) No Known Allergies, Allergies (1) Active Severity Reaction No Known Allergies None Documented Medications Current medications: (Selected) Inpatient Medications Ordered Colace: 100 mg = 1 cap(s), Oral, BID Dulcolax Laxative: 10 mg = 1 supp, Per r ectum, Daily, PRN: Constipation Flomax: 0.8 mg = 2 cap(s), Oral, Daily MiraLax: 17 gm = 1 packet(s), Oral, Judie y, PRN: Constipation Norvasc: 10 mg = 2 tab(s), Oral, Daily acetaminophen: 650 mg = 2 tab(s), Oral, q4hr, PRN: Pain atorvastatin: 20 mg = 1 tab(s), Oral, HS bacitracin zinc 500 units/g topical oint ment: 1 annabelle, TOP, q8hr, PRN: Other (see comment) chlorthalidone: 25 mg = 1 tab(s), Oral, Daily heparin: 5,000 unit(s) = 0.5 mL, Subcuta neous, q8hr labetalol: 300 mg = 3 tab(s), Oral, TID lisinopril: 40 mg = 1 tab(s), Oral, Judie y senna: 17.2 mg = 2 tab(s), Oral, HS spironolactone: 25 mg = 1 tab(s), Oral, Daily, Medications (14) Active Scheduled: (10) amLODIPine 5 mg Tab [[facility]] 10 mg 2 tab( s), Oral, Daily atorvastatin 20 mg Tab [[facility]] 20 mg 1 t ab(s), Oral, HS chlorthalidone 25 mg Tab [[facility]] 25 mg 1 tab(s), Oral, Daily docusate sodium 100 mg Cap [[facility]] 100 m g 1 cap(s), Oral, BID heparin 10,000 units/mL Inj Frances [[facility]] 5,000 unit(s) 0.5 mL, Subcutaneous, q8hr labetalol 100 mg Tab [[facility]] 300 mg 3 ta b(s), Oral, TID lisinopril 40 mg Tab [[facility]] 40 mg 1 tab (s), Oral, Daily senna 8.6 mg Tab [[facility]] 17.2 mg 2 tab(s ), Oral, HS spironolactone 25 mg Tab [[facility]] 25 mg 1 tab(s), Oral, Daily tamsulosin 0.4 mg Oral Cap [[facility]] 0.8 m g 2 cap(s), Oral, Daily Continuous: (0) PRN: (4) acetaminophen 325 mg Tab [[facility]] 650 mg 2 tab(s), Oral, q4hr bacitracin zinc 500 units/g Top Oint UD [[facility]] 1 annabelle, TOP, q8hr bisacodyl 10 mg Supp [[facility]] 10 mg 1 sup p, Per rectum, Daily polyethylene glycol 3350 Oral Pwdr Recon [[facility]] 17 gm 1 packet(s), Oral, Daily . Problem list: All Problems HTN (hypertension) / [id number] / Confir med, Active Problems (1) HTN (hypertension) Impression and Plan #bilateral thalamic IPH #PRES/HTN BP control on multiple meds BPs 150/90 since admission; 140/90 since lisinopril increased Continue BP meds per nephrology: lisinop ril norvasc chlorthalidone labetalol spironolactone and flomax. Per nephrology, lisinopril can be added up to 60 mg if needed, and since admission, have increased from 20 to 40 mg. Given increased Cr, w ill reduce back to 20, follow BMP PT OT [employer] daily; CGA currently for mobil ity and ADLs #DVT prophylaxis anti-embolus stockings, continue heparin for DVT prophylaxis. #urinary retention started flomax, now at 0.8 PVRs 600-800 on admission, but last PVR 0, and then 200-300cc continue to follow PVRs and cath as need ed #MARY, CKD sec to HTN Cr 2.2-2.4 since admission, stable from discharge but up from 1.6 in the days prior to discharge from continue to encourage po fluids and avoi d nephrotoxins lisinopril reduced to 20 recheck BMP tomorrow am and if still sheron vated >2, will consider IVF and ask hospitalist to consult #dispo home after 1 week LOS f/u PCP neuro cards nephrology #Potential or actual clinically signific ant medication issues addressed per CMS regulations: YES lisinopril reduced Did the facility complete prescribed/rec ommended actions in response to the identified potentially clinically significant medication issues by midnight of the next calendar day? YES Extracted from: Title: SOAP Note: Rehab Note Author: Osiris Rankin MD Date: Health Status Allergies: Allergic Reactions (All) No Known Allergies, Allergies (1) Active Severity Reaction No Known Allergies None Documented Medications Current medications: (Selected) Inpatient Medications Ordered Colace: 100 mg = 1 cap(s), Oral, BID Dulcolax Laxative: 10 mg = 1 supp, Per r ectum, Daily, PRN: Constipation Flomax: 0.8 mg = 2 cap(s), Oral, Daily MiraLax: 17 gm = 1 packet(s), Oral, Judie y, PRN: Constipation Norvasc: 10 mg = 2 tab(s), Oral, Daily acetaminophen: 650 mg = 2 tab(s), Oral, q4hr, PRN: Pain atorvastatin: 20 mg = 1 tab(s), Oral, HS bacitracin zinc 500 units/g topical oint ment: 1 annabelle, TOP, q8hr, PRN: Other (see comment) chlorthalidone: 25 mg = 1 tab(s), Oral, Daily heparin: 5,000 unit(s) = 0.5 mL, Subcuta neous, q8hr labetalol: 300 mg = 3 tab(s), Oral, TID lisinopril: 40 mg = 1 tab(s), Oral, Judie y senna: 17.2 mg = 2 tab(s), Oral, HS spironolactone: 25 mg = 1 tab(s), Oral, Daily, Medications (14) Active Scheduled: (10) amLODIPine 5 mg Tab [[facility]] 10 mg 2 tab( s), Oral, Daily atorvastatin 20 mg Tab [[facility]] 20 mg 1 t ab(s), Oral, HS chlorthalidone 25 mg Tab [[facility]] 25 mg 1 tab(s), Oral, Daily docusate sodium 100 mg Cap [[facility]] 100 m g 1 cap(s), Oral, BID heparin 10,000 units/mL Inj Frances [[facility]] 5,000 unit(s) 0.5 mL, Subcutaneous, q8hr labetalol 100 mg Tab [[facility]] 300 mg 3 ta b(s), Oral, TID lisinopril 40 mg Tab [[facility]] 40 mg 1 tab (s), Oral, Daily senna 8.6 mg Tab [[facility]] 17.2 mg 2 tab(s ), Oral, HS spironolactone 25 mg Tab [[facility]] 25 mg 1 tab(s), Oral, Daily tamsulosin 0.4 mg Oral Cap [[facility]] 0.8 m g 2 cap(s), Oral, Daily Continuous: (0) PRN: (4) acetaminophen 325 mg Tab [[facility]] 650 mg 2 tab(s), Oral, q4hr bacitracin zinc 500 units/g Top Oint UD [[facility]] 1 annabelle, TOP, q8hr bisacodyl 10 mg Supp [[facility]] 10 mg 1 sup p, Per rectum, Daily polyethylene glycol 3350 Oral Pwdr Recon [[facility]] 17 gm 1 packet(s), Oral, Daily . Problem list: All Problems HTN (hypertension) / [id number] / Confir med, Active Problems (1) HTN (hypertension) Impression and Plan #bilateral thalamic IPH #PRES/HTN BP control on multiple meds BPs 150/90 since admission; 140/90 since lisinopril increased Continue BP meds per nephrology: lisinop ril norvasc chlorthalidone labetalol spironolactone and flomax. Per nephrology, lisinopril can be added up to 60 mg if needed, and since admission, have increased from 20 to 40 mg. PT OT [employer] daily; CGA currently for mobil ity and ADLs #DVT prophylaxis anti-embolus stockings, continue heparin for DVT prophylaxis. #urinary retention started flomax, now at 0.8 PVRs 600-800 on admission, but last PVR 0 continue to follow PVRs and cath as need ed #MARY ?CKD sec to HTN Cr now 2.2 on admission, stable from continue to encourage po fluids and avoi d nephrotoxins recheck BMP tomorrow am #dispo home after 1 week LOS f/u PCP neurp cards nephrology #Potential or actual clinically signific ant medication issues addressed per CMS regulations: NO Extracted from: Title: SOAP Note: Rehab Note Author: Osiris Rankin MD Date: Health Status Allergies: Allergic Reactions (All) No Known Allergies, Allergies (1) Active Severity Reaction No Known Allergies None Documented Medications Current medications: (Selected) Inpatient Medications Ordered Colace: 100 mg = 1 cap(s), Oral, BID Dulcolax Laxative: 10 mg = 1 supp, Per r ectum, Daily, PRN: Constipation Flomax: 0.8 mg = 2 cap(s), Oral, Daily MiraLax: 17 gm = 1 packet(s), Oral, Judie y, PRN: Constipation Norvasc: 10 mg = 2 tab(s), Oral, Daily acetaminophen: 650 mg = 2 tab(s), Oral, q4hr, PRN: Pain atorvastatin: 20 mg = 1 tab(s), Oral, HS bacitracin zinc 500 units/g topical oint ment: 1 annabelle, TOP, q8hr, PRN: Other (see comment) chlorthalidone: 25 mg = 1 tab(s), Oral, Daily heparin: 5,000 unit(s) = 0.5 mL, Subcuta neous, q8hr labetalol: 300 mg = 3 tab(s), Oral, TID lisinopril: 20 mg = 1 tab(s), Oral, Judie y senna: 17.2 mg = 2 tab(s), Oral, HS spironolactone: 25 mg = 1 tab(s), Oral, Daily, Medications (14) Active Scheduled: (10) amLODIPine 5 mg Tab [[facility]] 10 mg 2 tab( s), Oral, Daily atorvastatin 20 mg Tab [[facility]] 20 mg 1 t ab(s), Oral, HS chlorthalidone 25 mg Tab [[facility]] 25 mg 1 tab(s), Oral, Daily docusate sodium 100 mg Cap [[facility]] 100 m g 1 cap(s), Oral, BID heparin 10,000 units/mL Inj Frances [[facility]] 5,000 unit(s) 0.5 mL, Subcutaneous, q8hr labetalol 100 mg Tab [[facility]] 300 mg 3 ta b(s), Oral, TID lisinopril 20 mg Tab [[facility]] 20 mg 1 tab (s), Oral, Daily senna 8.6 mg Tab [[facility]] 17.2 mg 2 tab(s ), Oral, HS spironolactone 25 mg Tab [[facility]] 25 mg 1 tab(s), Oral, Daily tamsulosin 0.4 mg Oral Cap [[facility]] 0.8 m g 2 cap(s), Oral, Daily Continuous: (0) PRN: (4) acetaminophen 325 mg Tab [[facility]] 650 mg 2 tab(s), Oral, q4hr bacitracin zinc 500 units/g Top Oint UD [[facility]] 1 annabelle, TOP, q8hr bisacodyl 10 mg Supp [[facility]] 10 mg 1 sup p, Per rectum, Daily polyethylene glycol 3350 Oral Pwdr Recon [[facility]] 17 gm 1 packet(s), Oral, Daily . Problem list: All Problems HTN (hypertension) / [id number] / Confir med, Active Problems (1) HTN (hypertension) Impression and Plan #bilateral thalamic IPH #PRES/HTN BP control on multiple meds BPs 150/90 since admission Continue BP meds per nephrology: lisinop ril norvasc chlorthalidone labetalol spironolactone and flomax. Per nephrology, lisinopril can be added up to 60 mg if needed. 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 #urinary retention started flomax, now at 0.8 PVR 600-800 if continues to have high PVRs, will rep lace catheter #MARY ?CKD sec to HTN Cr now 2.2 on admission, stable from continue to encourage po fluids and avoi d nephrotoxins recheck BMP in am #dispo home after 1 week LOS f/u PCP neurp cards nephrology #Potential or actual clinically signific ant medication issues addressed per CMS regulations: YES increased lisinopril Did the facility complete prescribed/rec ommended actions in response to the identified potentially clinically significant medication issues by midnight of the next calendar day? YES Extracted from: Title: Nursing Author: Rashaun Byrd RN Date: 04/14 56 Y/O male patient arrived via private transport today 04/14/2022 15:30 in a wheel chair. BP 161/99 O2 97% RA HR 65 oral temp 36.6. S/P Bilateral IPH w/ PERS. Patient is A & O X2 needs cues for time unable to see well, visual deficits noted post hemorrhagic stroke. PMHX HTN (non compliant with medications) developmentally delaye d but alone in his own [facility]. Extracted from: Title: General Rehab Admission H&P * stroke Author: Alejandro Rankin MD Date: 04/14/22 History of Present Illness Mr Henderson is s 56 yo man with PMH of HTN but on no recent BP meds, who presented to [facility] 04/05, with GARCIA, nausea and blurred vision. BP was 280/180, he was given labetalol and started nicardipine drip. CT head showed bilateral R>L acute IPH i n the bilateral thalamus. Transferred to [facility] [place] until discharge 04/14 . MRI showed leukoariosis, extensive signal abnormalities in bilateral thalami, an numerous foci ICH in pattern c/w longstanding HTN. TTE showed LV wall thickness ., EF 60%, moderately dilated left atriu m, mildly dilated right atrium. Etiology of strokes felt to be hypertensive. BP was difficult to control and nephrolo gy consulted. By discharge he is on lisinopril, labetalol, norvasc, chlorthalidone, spironolactone, flomax. Sleep study was recommended as outpatient to eval for SAMIA contributing to HTN. Hypertensive retinopathy found by ophtho , and outpatient f/u recommended, along with continued aggressive HTN treatement. MARY treated with IVF, avoiding nephrotoxins. He had elevated troponins and cardi ology followed, feeling that demand isch emia was from HTN. Statin recommended, but ASA not started until repeat MRI to be done as outpatient. The patient was evaluated by PT OT and S LP. 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 Review of Systems Constitutional: Negative. Pain assessment: Self-reports no pain. Eye: Blurring. Ear/Nose/Mouth/Throat: No dysphagia. Respiratory: No shortness of breath, No cough, No wheezing, No sputum production. Cardiovascular: No chest pain, No palpit ations, No bradycardia, No tachycardia, No leg swelling. Gastrointestinal: No nausea, No vomiting , No diarrhea, No constipation, No abdominal pain. Genitourinary: No dysuria, No urinary fr equency, No urinary incontinence. Hematology/Lymphatics: No anemia. Endocrine Musculoskeletal: No back pain, No joint pain, No muscle pain, No joint swelling. Integumentary: No rash, No breakdown, No skin lesion. Neurologic: No confusion, No numbness, N o tingling, No dizziness, No memory loss, No speech problems. Psychiatric: No anxiety, No depression, No sleeping problems. Health Status Allergies: Allergic Reactions (All) No Known Allergies, Allergies (1) Active Severity Reaction No Known Allergies None Documented Medications Current medications: (Selected) Inpatient Medications Ordered Colace: 100 mg = 1 cap(s), Oral, BID Dulcolax Laxative: 10 mg = 1 supp, Per r ectum, Daily, PRN: Constipation Flomax: 0.8 mg = 2 cap(s), Oral, Daily Lovenox: 40 mg = 0.4 mL, Subcutaneous, H S MiraLax: 17 gm = 1 packet(s), Oral, Judie y, PRN: Constipation Norvasc: 10 mg = 2 tab(s), Oral, Daily acetaminophen: 650 mg = 2 tab(s), Oral, q4hr, PRN: Pain atorvastatin: 20 mg = 1 tab(s), Oral, HS bacitracin zinc 500 units/g topical oint ment: 1 annabelle, TOP, q8hr, PRN: Other (see comment) chlorthalidone: 25 mg = 1 tab(s), Oral, Daily labetalol: 300 mg = 3 tab(s), Oral, TID senna: 17.2 mg = 2 tab(s), Oral, HS spironolactone: 25 mg = 1 tab(s), Oral, Daily, Medications (13) Active Scheduled: (9) amLODIPine 5 mg Tab [[facility]] 10 mg 2 tab( s), Oral, Daily atorvastatin 20 mg Tab [[facility]] 20 mg 1 t ab(s), Oral, HS chlorthalidone 25 mg Tab [[facility]] 25 mg 1 tab(s), Oral, Daily docusate sodium 100 mg Cap [[facility]] 100 m g 1 cap(s), Oral, BID enoxaparin 40 mg/0.4 mL SC Frances [[facility]] 4 0 mg 0.4 mL, Subcutaneous, HS labetalol 100 mg Tab [[facility]] 300 mg 3 ta b(s), Oral, TID senna 8.6 mg Tab [[facility]] 17.2 mg 2 tab(s ), Oral, HS spironolactone 25 mg Tab [[facility]] 25 mg 1 tab(s), Oral, Daily tamsulosin 0.4 mg Oral Cap [[facility]] 0.8 m g 2 cap(s), Oral, Daily Continuous: (0) PRN: (4) acetaminophen 325 mg Tab [[facility]] 650 mg 2 tab(s), Oral, q4hr bacitracin zinc 500 units/g Top Oint UD [[facility]] 1 annabelle, TOP, q8hr bisacodyl 10 mg Supp [[facility]] 10 mg 1 sup p, Per rectum, Daily polyethylene glycol 3350 Oral Pwdr Recon [[facility]] 17 gm 1 packet(s), Oral, Daily . Medications (13) Active Scheduled: (9) amLODIPine 5 mg Tab [[facility]] 10 mg 2 tab( s), Oral, Daily atorvastatin 20 mg Tab [[facility]] 20 mg 1 t ab(s), Oral, HS chlorthalidone 25 mg Tab [[facility]] 25 mg 1 tab(s), Oral, Daily docusate sodium 100 mg Cap [[facility]] 100 m g 1 cap(s), Oral, BID enoxaparin 40 mg/0.4 mL SC Frances [[facility]] 4 0 mg 0.4 mL, Subcutaneous, HS labetalol 100 mg Tab [[facility]] 300 mg 3 ta b(s), Oral, TID senna 8.6 mg Tab [[facility]] 17.2 mg 2 tab(s ), Oral, HS spironolactone 25 mg Tab [[facility]] 25 mg 1 tab(s), Oral, Daily tamsulosin 0.4 mg Oral Cap [[facility]] 0.8 m g 2 cap(s), Oral, Daily Continuous: (0) PRN: (4) acetaminophen 325 mg Tab [[facility]] 650 mg 2 tab(s), Oral, q4hr bacitracin zinc 500 units/g Top Oint UD [[facility]] 1 annabelle, TOP, q8hr bisacodyl 10 mg Supp [[facility]] 10 mg 1 sup p, Per rectum, Daily polyethylene glycol 3350 Oral Pwdr Recon [[facility]] 17 gm 1 packet(s), Oral, Daily . Problem list: All Problems HTN (hypertension) / [id number] / Confir med, Active Problems (1) HTN (hypertension) Physical Examination VS/Measurements No qualifying data available, Measuremen ts from flowsheet : Measurements 04/13/2022 13:26 EDT Weight Dosing 114.7 kg 04/13/2022 13:25 EDT Height/Length Dosing 180.3 cm General: Alert and oriented, No acute di stress. Eye: Extraocular movements are intact, N ormal conjunctiva. Respiratory: Lungs are clear to ausculta tion, Respirations are non-labored. Cardiovascular: Normal rate, Regular rhy thm. Gastrointestinal: Soft, Non-tender, Non- distended, Normal bowel sounds. Integumentary: Intact, No rash. Mental status/ Cognition Alert. Oriented x 3. Speech and language intact. Cognition intact. able to repeat 3 words sock blue bed on first attempt year:2021 correct month: Mar correct day of week: Mon correct recall: 2/3 without cues; required 2 cue s for bed. Movement/ Coordination right hand missing last 2 digits. Sensorimotor/ Reflexes Normal sensation. Normal muscle strength. 5/5 strength. Psychiatric: Cooperative, Appropriate mo od & affect. Impression and Plan Diagnosis bilateral thalamic IPH sec to PRES/HTN. Impairments: Fatigue. Disabilities: Decreased: Mobility, Abili ty to transfer self, Ability to ambulate, Ability to dress self, Ability to feed self, Ability to bathe self, Ability to toilet self, Ability to self-care, Commun ication abilities, Problem-solving abili ties, Safety. Limiting factors: Cognitive impairment. Nursing goals: Nutrition/diet: Maintain optimal calori c intake, Tolerate regular diet. Medication monitor for treatment: Effec ts, Adverse reactions. Bladder: Continent, Regulated with prog ankita. Bowel: Continent, Regulated with progra m. Skin: Promote wound healing, Prevent br eakdown. Pain/Sleep: Regulate sleep cycle, Decre ase pain level. Occupational therapy goals: Setup/ super vision, Equipment/DME assessment. Physical therapy goals: Setup/ supervisi on, Equipment/DME assessment, Home assessment. Speech Therapy goals: Setup/ supervision , Dysphagia assessment, Cognitive assessment, Language assessment. Therapeutic Recreation Goals: Leisure sk ills assessment, Improve social interaction with peers. Patient/Family Goals: Return to home ind ependent, Return to home with assistance. Potential for improvement to meet goals: Excellent. Patient/Family Educational Needs: ADL as sistance, Bowel/bladder program, Disease process education, Medication education, Safety awareness, Transfers. Estimated length of stay: 1 weeks. Disposition: Home with family. Code Status: Full code. Medical Plan DVT prophylaxis: anti-embolus stockings, continue heparin for DVT prophylaxis. Skin: pressure relief, positioning, melly a management. Respiratory: pulmonary hygiene incentive spirometry. Cardiovascular: HTN, PRES Continue BP meds per nephrology: lisinop ril norvasc chlorthalidone labtealol spironolactone and flomax. Per nephrology, lisinopril can be added up to 60 mg if needed. . GI: Constipation (laxative, stool soften er). : retention (post void residual, voidi ng program, ?started flomax at for retention vs BP agent; will follow PVRs). Nutrition: regular, cardiac low salt. Fluids/ Electrolytes: encourage po foods and fluids. Pain: managed with acetaminophen. #[facility] medication review: Did a complete drug regimen review ident inga potential clinically significant medication issues? - NO ? no issues found during review Did the facility complete prescribed/rec ommended actions in response to the identified potential clinically significant medication issues by midnight of the next calendar day? - YES . Rehab Impairment Categories Impairment category/ codes table I & II Stroke: 01.4 No paresis. Post Admission Physician Evaluation: Documentation Reviewed: I have reviewed the Preadmission Screen. Functional status documented at preadmi ssion: I agree with the patient's current functional status as documented in the preadmission screening. Risk for complications: I agree with e risk for clinical complications documented in the preadmission screening. Medical conditions: The patient's medic al conditions can be managed in the rehab hospital, The plan of treatment is documented above in the history and physical. Patient participation in therapy: The p atient can participate in, and will benefit from an intense therapy program at least 3 hours per day / 5 days per week. Therapies/services include:, assistant therapy aide apy, Occupational therapy, Speech langua ge pathology, Rehabilitation Nursing, Case Management, Therapeutic Recreation, Chief Design Drafter. Functional Status 04/24/22 History of Fall in Last 3 Months Garcia No Mobility Kyle Slightly limited 04/17/22 Bathing ADL Index Requires assistance (1) Dressing ADL Index Requires assistance (1) Toileting ADL Index Requires assistance (1) Transferring Bed or Chair ADL Index Requires assistanc e (1) Continence ADL Index Requires assistance (1) ADLs Minimal assistance 04/14/22 Recent Travel History No recent travel Family Member Travel History No recent travel COVID-19 Screening None Medications acetaminophen 325 mg oral tablet 650 mg = 2 tab(s), Oral, q4hr, PRN PRN Pain, 0 Refill(s) Start Date: 04/22/22 Status: Orderedatorvastatin 20 mg oral tablet 20 mg = 1 tab(s), Oral, HS, # 30 tab(s), 0 Refill(s), Pharmacy: [id number], 1 tab(s) Oral HS, 180.3, cm, 04/14/22 16:51:00 EDT, Height/Length Dosing, 113.4, kg, 04/22/22 9:50:00 EDT, Weight Dosing Start Date: 04/22/22 Status: OrderedColace 100 mg oral capsule 100 mg = 1 cap(s), Oral, BID, PRN PRN Constipation, 0 Refill(s) Start Date: 04/22/22 Status: OrderedFlomax 0.4 mg oral capsule 0.8 mg = 2 cap(s), Oral, Daily, # 60 cap(s), 0 Refill(s), Pharmacy: [id number], 2 cap(s) Oral Daily, 180.3, cm, 04/14/22 16:51:00 EDT, Height/Length Dosing, 113.4, kg, 04/22/22 9:50:00 EDT, Weight Dosing Start Date: 04/22/22 Status: Orderedlabetalol 300 mg = 3 tab(s), Tab, Oral, Start date: 04/18/22 14:00:00 EDT, 04/14/22 14:15:00 EDT Start Date: 04/18/22 Stop Date: 04/18/22 Status: Completedlabetalol 300 mg = 3 tab(s), Tab, Oral, Start date: 04/20/22 14:00:00 EDT, 04/14/22 14:15:00 EDT Start Date: 04/20/22 Stop Date: 04/20/22 Status: Completedlabetalol 100 mg oral tablet 300 mg = 3 tab(s), Oral, TID, # 270 tab(s), 0 Refill(s), Pharmacy: [id number], 3 tab(s) Oral TID, 180.3, cm, 04/14/22 16:51:00 EDT, Height/Length Dosing, 113.4, kg, 04/22/22 9:50:00 EDT, Weight Dosing Start Date: 04/22/22 Status: OrderedNorvasc 10 mg oral tablet 10 mg = 1 tab(s), Oral, Daily, # 30 tab(s), 0 Refill(s), Pharmacy: [id number], 1 tab(s) Oral Daily, 180.3, cm, 04/14/22 16:51:00 EDT, Height/Length Dosing, 113.4, kg, 04/22/22 9:50:00 EDT, WeightDosing Start Date: 04/22/22 Status: Orderedsenna 8.6 mg oral tablet 17.2 mg = 2 tab(s), Oral, HS, PRN PRN Constipation, 0 Refill(s) Start Date: 04/22/22 Status: Ordered Mental Status 04/24/22 Sensory Perception Kyle No impairment Level of Consciousness Alert Problem List Condition Effective Dates Status Health Status Informant HTN (hypertension)(Confirmed) Active Results Laboratory List Name Date Basic Metabolic Panel DH (BMP DH) 04/24/22 Basic Metabolic Panel DH (BMP DH) 04/23/22 Basic Metabolic Panel DH (BMP DH) 04/21/22 U Protein/creatinine Ratio DH 04/19/22 Urinalysis Dipstick 04/19/22 SARS-CoV-2 (COVID-19)/Influenza PCR (Elaine) 04/17/22 .Hemogram DH (CBC DH) 04/15/22 SARS-CoV-2 (COVID-19)/Influenza PCR (Elaine) 04/14/22 Most recent to oldest 1 2 3 [Reference Range]: Anion Gap DH [5-15 mmol/L] 12 mmol/L 12 mmol/L 11 mm ol/L (04/24/22 6:00 AM) (04/23/22 5:00 AM) (04/21/22 5:3 0 AM) Chloride Lvl DH [98-107 98 mmol/L 101 mmol/L 102 mmol /L mmol/L] (04/24/22 6:00 AM) (04/23/22 5:00 AM) (04/21/22 5:3 0 AM) CO2 DH [22-31 mmol/L] 22 mmol/L 23 mmol/L 23 mmol/L (04/24/22 6:00 AM) (04/23/22 5:00 AM) (04/21/22 5:3 0 AM) Est GFR DH [>=60 32 mL/min/1.73 m2 1 26 mL/min/1.73 m2 2 33 mL/m in/1.73 m2 3 mL/min/1.73 m2] *LOW* *LOW* *LOW* (04/24/22 6:00 AM) (04/23/22 5:00 AM) (04/21/22 5:3 0 AM) Glucose Lvl DH [65-99 107 mg/dL 100 mg/dL 100 mg/dL mg/dL] *HI* *HI* *HI* (04/24/22 6:00 AM) (04/23/22 5:00 AM) (04/21/22 5:3 0 AM) Potassium Lvl DH [3.5-5.0 4.7 mmol/L 5.0 mmol/L 4.7 mm ol/L mmol/L] (04/24/22 6:00 AM) (04/23/22 5:00 AM) (04/21/22 5:3 0 AM) Sodium Lvl DH [135-145 132 mmol/L 136 mmol/L 136 mmol/ L mmol/L] *LOW* (04/23/22 5:00 AM) (04/21/22 5:30 AM) (04/24/22 6:00 AM) BUN DH [10-20 mg/dL] 44 mg/dL 46 mg/dL 38 mg/dL *HI* *HI* *HI* (04/24/22 6:00 AM) (04/23/22 5:00 AM) (04/21/22 5:3 0 AM) Calcium Lvl DH [8.5-10.5 9.7 mg/dL 9.7 mg/dL 9.5 mg/ dL mg/dL] (04/24/22 6:00 AM) (04/23/22 5:00 AM) (04/21/22 5:3 0 AM) U Protein DH [0-12 mg/dL] 10 mg/dL 4 *NA* (04/19/22 1:54 PM) U Creatinine DH 106 mg/dL 5 *NA* (04/19/22 1:54 PM) U Prot/Cre R DH <0.1 ratio 6 *NA* (04/19/22 1:54 PM) Creatinine [0.80-1.50 2.32 mg/dL 2.77 mg/dL 2.26 mg/dL mg/dL] *HI* *HI* *HI* (04/24/22 6:00 AM) (04/23/22 5:00 AM) (04/21/22 5:3 0 AM) UA Bili [Negative] Negative *NA* (04/19/22 1:54 PM) UA Blood [Negative] Negative *NA* (04/19/22 1:54 PM) UA Color [Yellow] Straw *NA* (04/19/22 1:54 PM) UA Glucose [Negative mg/dL] Negative mg/dL *NA* (04/19/22 1:54 PM) UA Ketones [Negative] Negative *NA* (04/19/22 1:54 PM) UA Leuk Est [Negative] Negative *NA* (04/19/22 1:54 PM) UA Nitrite [Negative] Negative (04/19/22 1:54 PM) UA Protein [Negative] Negative *NA* (04/19/22 1:54 PM) UA Urobilinogen [0.00-1.99 0.20 Eu/dL Eu/dL] (04/19/22 1:54 PM) UA pH [5.0-9.0] 5.5 (04/19/22 1:54 PM) UA Spec Grav [1.002-1.030] 1.020 (04/19/22 1:54 PM) UA Clarity [Clear] Clear (04/19/22 1:54 PM) Influenza A [Negative] Negative Negative (04/17/22 1:30 PM) (04/14/22 4:05 PM) Influenza B [Negative] Negative Negative (04/17/22 1:30 PM) (04/14/22 4:05 PM) Hct DH [40.5-48.5 %] 31.9 % *LOW* (04/15/22 6:05 AM) Hgb DH [13.7-16.5 g/dL] 10.8 g/dL *LOW* (04/15/22 6:05 AM) MCHC DH [32.0-35.7 g/dL] 33.9 g/dL (04/15/22 6:05 AM) MCH DH [27.5-32.1 pg] 30.0 pg (04/15/22 6:05 AM) MCV DH [82.9-93.1 fL] 88.6 fL (04/15/22 6:05 AM) MPV DH [7.6-12.9 fL] 10.2 fL (04/15/22 6:05 AM) Platelet DH [145-357 239 x10(3)/mcL x10(3)/mcL] (04/15/22 6:05 AM) RBC DH [4.58-5.54 3.60 x10(6)/mcL x10(6)/mcL] *LOW* (04/15/22 6:05 AM) RDWCV DH [11.4-13.8 %] 13.0 % (04/15/22 6:05 AM) RDWSD DH [36.0-45.0 fL] 42.3 fL (04/15/22 6:05 AM) WBC DH [4.0-9.5 x10(3)/mcL] 6.8 x10(3)/mcL (04/15/22 6:05 AM) Employed in healthcare? No No *NA* *NA* (04/17/22 1:30 PM) (04/14/22 4:05 PM) Symptomatic as defined by No No CDC? *NA* *NA* (04/17/22 1:30 PM) (04/14/22 4:05 PM) Hospitalized due to No No COVID-19? *NA* *NA* (04/17/22 1:30 PM) (04/14/22 4:05 PM) In ICU? No No *NA* *NA* (04/17/22 1:30 PM) (04/14/22 4:05 PM) Group care resident? No No *NA* *NA* (04/17/22 1:30 PM) (04/14/22 4:05 PM) status? Not Not *NA* *NA* (04/17/22 1:30 PM) (04/14/22 4:05 PM) SARS-CoV-2 (COVID-19) PCR Not Detected Not Detected [Not Detected] (04/17/22 1:30 PM) (04/14/22 4:05 PM) 1Result Comment: This patient's estimated GFR was calculated using the 2020 CKD- EPI equation. The estimated GFR can vary from the measured GFR by up to 30% in the absence of rapidly changing kidney function. Assessment of the estimated GFR is not appropriate when creatinine concentrations are rapidly changing. For clinical situations in which a more precise estimate of GFR is necessary, consider alternative methods of GFR estimation such as a 24-hour urine creatinine clearance. Assignment of CKD stage 1-5 for patients with an eGFR near the transition point between stages may be based on clinical assessment of muscle mass and symptoms in addition to eGFR.2Result Comment: This patient's estimated GFR was calculated using the 2020 CKD-EPI equation. The estimated GFR can vary from the measured GFR by up to 30% in the absence of rapidly changing kidney function. Assessment of the estimated GFR is not appropriate when creatinine concentrations are rapidly changing. For clinical situations in which a more precise estimate of GFR is necessary, consider alternative methods of GFR estimation such as a 24- hour urine creatinine clearance. Assignment of CKD stage 1-5 for patients with an eGFR near the transition point between stages may be based on clinical assessment of muscle mass and symptoms in addition to eGFR.3Result Comment: This patient's estimated GFR was calculated using the 2020 CKD-EPI equation. The estimated GFR can vary from the measured GFR by up to 30% in the absence of rapidly changing kidney function. Assessment of the estimated GFR is not appropriate when creatinine concentrations are rapidly changing. For clinical situations in which a more precise estimate of GFR is necessary, consider alternative methods of GFR estimation such as a 24- hour urine creatinine clearance. Assignment of CKD stage 1-5 for patients with an eGFR near the transition point between stages may be based on clinical assessment of muscle mass and symptoms in addition to eGFR.4Result Comment: Test performed at: [facility], Dept. of Pathology [place], [place] [id number] Comment: Test performed at: [facility], Dept. of Pathology [place], [place] [id number] Comment: Test performed at: [facility], [place] [address] Vital Signs Most recent to oldest 1 2 3 [Reference Range]: Temperature Oral [35.8-37.3 36.4 DegC 36.8 DegC 36.4 DegC DegC] (04/24/22 8:58 AM) (04/24/22 4:00 AM) (04/23/22 8:0 0 PM) Temperature Oral (DegF) 97.52 DegF 98.24 DegF 98.24 De gF (04/24/22 8:58 AM) (04/24/22 4:00 AM) (04/22/22 7:3 0 AM) Apical Heart Rate [60-100 95 bpm 60 bpm 62 bpm bpm] (04/20/22 1:57 PM) (04/18/22 2:38 PM) (04/17/22 7:0 0 AM) Peripheral Pulse Rate [60-100 59 bpm 57 bpm 51 bpm bpm] *LOW* *LOW* *LOW* (04/24/22 8:58 AM) (04/24/22 4:00 AM) (04/23/22 8:0 0 PM) Heart Rate Monitored [60-100 60 bpm 66 bpm bpm] (04/21/22 2:00 PM) (04/21/22 8:00 AM) Respiratory Rate [14-20 18 br/min 16 br/min 18 br/mi n br/min] (04/24/22 8:58 AM) (04/24/22 4:00 AM) (04/23/22 8:0 0 PM) Blood Pressure [90-140/60-90 123/81 mmHg 114/70 mmHg 138 /85 mmHg mmHg] (04/24/22 8:58 AM) (04/24/22 4:00 AM) (04/23/22 8:0 0 PM) Mean Arterial Pressure, Cuff 86 mmHg (04/23/22 8:28 AM) Mean Arterial Pressure, Cuff 78 mmHg 109 mmHg [65-100 mmHg] (04/22/22 7:30 AM) *HI* (04/21/22 7:00 PM) BP Site Left arm Left arm Right arm (04/24/22 8:58 AM) (04/23/22 8:00 PM) (04/23/22 3:0 0 PM) SpO2 [92-100 %] 100 % 96 % 98 % (04/24/22 8:58 AM) (04/24/22 4:00 AM) (04/23/22 8:0 0 PM) SpO2 Location Right hand Left hand Left hand (04/20/22 7:00 PM) (04/19/22 8:00 PM) (04/17/22 8:0 0 PM) BP Method Automatic Automatic Automatic (04/23/22 8:00 PM) (04/22/22 8:00 PM) (04/22/22 7:3 0 AM) Height 180 cm (04/15/22 11:32 AM) Height/Length Dosing 180.3 cm 180.3 cm 180.3 cm (04/14/22 4:51 PM) (04/14/22 4:19 PM) (04/13/22 1:2 5 PM) Weight 112.9 kg 113.8 kg 113.4 kg (04/24/22 10:34 AM) (04/24/22 10:34 AM) (04/22/22 9 :50 AM) Weight Estimated 112.9 kg 113.8 kg 113.4 kg (04/24/22 10:34 AM) (04/24/22 10:34 AM) (04/22/22 9 :50 AM) Weight Dosing 112.9 kg 113.8 kg 113.3 kg (04/24/22 10:34 AM) (04/24/22 10:34 AM) (04/23/22 9 :42 AM) Body Mass Index Measured 35.43 kg/m2 (04/15/22 11:32 AM) Social History Social History Type Response Tobacco Never tobacco user Tobacco U se:. Sex Hospital Discharge Instructions Patient Gsxdnogbz83/25/2022 10:35:20Hospitalist Services Upon Discharge ([facility]) (CUSTOM) Services Upon Discharge Patient is being discharged home with these services in place: HOME SERVICES: Home Services Discharge - Arrangements and orders for follow-up care Service Provider: [facility] Will call patient's sisterKendy to arrange start date. 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 My clinical findings support the need for skilled: Occupational Therapy- 2x weekly for independence with ADLs Physical Therapy- 2x weekly for strengthening, endurance, balance and functional independence Nursing- CV and pulmonary assessment, medication education. Check BMP on 04/30/22 to f/u Cr, results to PCP Home Health Aide- 2x weekly for impaired weakness and immobility, ADL independence Speech Therapy- The patient is homebound and requires considerable and taxing effort to leave their residence secondary to impaired mobility and ADLs after bilateral strokes To all home service providers, please contact the patient???s Primary Care Provider - Mirta Campbell NP -- New PCP at [place], [place]- with all follow up regarding your services. Reviewed and Electronically Signed By: Osiris Rankin MD Date: 04/22/22 04/22/2022 13:16:35Hypertension, Adult, Ylel-sc-HarbKbsinpkrjtrz, Adult Hypertension is another name for high blood pressure. High blood pressure forces your heart to work harder to pump blood. This can cause problems over time. There are two numbers in a blood pressure reading. There is a top number (systolic) over a bottom number (diastolic). It is best to have a blood pressure that is below 120/80. Healthy choices can help lower your blood pressure, or you may need medicine to help lower it. What are the causes? The cause of this condition is not known. Some conditions may be related to high blood pressure. What increases the risk? Smoking. ??? Having type 2 diabetes mellitus, high cholesterol, or both. ??? Not getting enough exercise or physical activity. ??? Being overweight. ??? Having too much fat, sugar, calories, or salt (sodium) in your diet. ??? Drinking too much alcohol. ??? Having long-term (chronic) kidney disease. ??? Having a family history of high blood pressure. ??? Age. Risk increases with age. ??? Race. You may be at higher risk if you are . ??? Gender. Men are at higher risk than women before age 45. After age 65, women are at higher risk than men. ??? Having obstructive sleep apnea. ??? Stress. What are the signs or symptoms? High blood pressure may not cause symptoms. Very high blood pressure (hypertensive crisis) may cause: ??? Headache. ??? Feelings of worry or nervousness (anxiety). ??? Shortness of breath. ??? Nosebleed. ??? A feeling of being sick to your stomach (nausea). ??? Throwing up (vomiting). ??? Changes in how you see. ??? Very bad chest pain. ??? Seizures. How is this treated? This condition is treated by making healthy lifestyle changes, such as: ??? Eating healthy foods. ??? Exercising more. ??? Drinking less alcohol. ??? Your health care provider may prescribe medicine if lifestyle changes are not enough to get yourblood pressure under control, and if: ??? Your top number is above 130. ??? Your bottom number is above 80. ??? Your personal target blood pressure may vary. Follow these instructions at home: Eating and drinking ??? If told, follow the DASH eating plan. To follow this plan: ??? Fill one half of your plate at each meal with fruits and vegetables. ??? Fill one fourth of your plate at each meal with whole grains. Whole grains include whole-wheat pasta, brown rice, and whole-grain bread. ??? Eat or drink low-fat dairy products, such as skim milk or low-fat yogurt. ??? Fill one fourth of your plate at each meal with low-fat (lean) proteins. Low-fat proteins include fish, chicken without skin, eggs, beans, and tofu. ??? Avoid fatty meat, cured and processed meat, or chicken with skin. ??? Avoid pre-made or processed food. ??? Eat less than 1,500 mg of salt each day. ??? Do not drink alcohol if: ??? Your doctor tells you not to drink. ??? You are , may be , or are planning to become . ??? If you drink alcohol: ??? Limit how much you use to: ??? 0???1 drink a day for women. ??? 0???2 drinks a day for men. ??? Be aware of how much alcohol is in your drink. In the [place] one drink equals one 12 oz bottle ofbeer (355 mL), one 5 oz glass of wine (148 mL), or one 1?? oz glass of hard liquor (44 mL). Lifestyle ??? Work with your doctor to stay at a healthy weight or to lose weight. Ask your doctor what the best weight is for you. ??? Get at least 30 minutes of exercise most days of the week. This may include walking, swimming, or biking. ??? Get at least 30 minutes of exercise that strengthens your muscles (resistance exercise) at least3 days a week. This may include lifting weights or doing Pilates. ??? Do not use any products that contain nicotine or tobacco, such as cigarettes, e-cigarettes, and chewing tobacco. If you need help quitting, ask your doctor. ??? Check your blood pressure at home as told by your doctor. ??? Keep all follow-up visits as told by your doctor. This is important. Medicines ??? Take qleu-dwa-vvoizmb and prescription medicines only as told by your doctor. Follow directions carefully. ??? Do not skip doses of blood pressure medicine. The medicine does not work as well if you skip doses. Skipping doses also puts you at risk for problems. ??? Ask your doctor about side effects or reactions to medicines that you should watch for. Contact a doctor if you: ??? Think you are having a reaction to the medicine you are taking. ??? Have headaches that keep coming back (recurring). ??? Feel dizzy. ??? Have swelling in your ankles. ??? Have trouble with your vision. Get help right away if you: ??? Get a very bad headache. ??? Start to feel mixed up (confused). ??? Feel weak or numb. ??? Feel faint. ??? Have very bad pain in your: ??? Chest. ??? Belly (abdomen). ??? Throw up more than once. ??? Have trouble breathing. Summary ??? Hypertension is another name for high blood pressure. ??? High blood pressure forces your heart to work harder to pump blood. ??? For most people, a normal blood pressure is less than 120/80. ??? Making healthy choices can help lower blood pressure. If your blood pressure does not get lower with healthy choices, you may need to take medicine. This information is not intended to replace advice given to you by your health care provider. Make sure you discuss any questions you have with your health care provider. Document Revised: 04/27/2019 Document Reviewed: 04/27/2019 [employer] Patient Education ?? 2021 [employer]. 04/22/2022 13:16:35Hemorrhagic StrokeHemorrhagic Stroke A hemorrhagic stroke happens when a blood vessel in the brain leaks or bursts (ruptures). This causes bleeding in or around the brain (hemorrhage) and leads to the sudden of brain tissue. A hemorrhagic stroke is a medical emergency. It can cause brain damage and . There are two major types of hemorrhagic stroke: ??? Intracerebral hemorrhage. This happens when bleeding occurs within the brain tissue. ??? Subarachnoid hemorrhage. This happens when bleeding occurs in the area between the brain and themembrane that covers the brain (subarachnoid space). What are the causes? This condition may be caused by: ??? Head injury (trauma). ??? Part of a weakened blood vessel wall bulging or ballooning out (cerebral aneurysm). ??? Thin and hardened blood vessels due to plaque buildup. ??? Tangled blood vessels in the brain (arteriovenous malformation). ??? Protein buildup on the artery mast of the brain (amyloid angiopathy). ??? Inflamed blood vessels (vasculitis). ??? A brain tumor. Sometimes, the cause of this condition is not known. What increases the risk? The following factors may make you more likely to develop this condition: ??? Hypertension. ??? Having abnormal blood vessels present since (congenital abnormality). ??? Bleeding disorders, such as hemophilia, sickle cell disease, or liver disease. ??? Blood thinners (anticoagulants) that make the blood too thin. ??? Being an older adult. ??? Moderate or heavy alcohol use. ??? Using drugs, such as cocaine or methamphetamines. What are the signs or symptoms? Symptoms of this condition include: ??? The sudden onset of: ??? Weakness or numbness of the face, arm, or leg, especially on one side of the body. ??? Confusion. ??? Trouble speaking or understanding speech. ??? Difficulty seeing in one or both eyes. ??? Difficulty walking or moving the arms or legs. ??? Dizziness, or loss of balance or coordination. ??? Nausea and vomiting. ??? A severe headache with no known cause. This headache may feel like the worst one a person has ever had. ??? Seizures. How is this diagnosed? This condition may be diagnosed based on: ??? Your symptoms, medical history, and a physical exam. ??? Tests, including: ??? Blood tests. ??? CT scan. ??? MRI. ??? CT angiography (CTA) or magnetic resonance angiography (MRA). ??? Catheter angiogram. In this procedure, dye is injected through a long, thin tube (catheter) intoone of your arteries. X-rays are taken and will show whether a blockage or a problem in a blood vessel exists. How is this treated? The goals of treatment are to stop the bleeding, reduce pressure on the brain, relieve symptoms, andprevent complications. Treatment may include: ??? Medicines that do the following: ??? Lower blood pressure (antihypertensives). ??? Relieve pain (analgesics), fever, nausea, or vomiting. ??? Stop or prevent seizures (anticonvulsants). ??? Prevent blood vessels in the brain from spasming in response to bleeding. ??? Control bleeding in the brain. ??? Use of a machine to help you breathe (ventilator). ??? A blood transfusion to help your blood clot. ??? Placement of a tube (shunt) in the brain to relieve pressure. ??? Physical, speech, or occupational therapy. ??? Surgery to stop the bleeding, remove a blood clot or tumor, or reduce pressure. Treatment depends on the cause, severity, and duration of symptoms. Talk with your health care provider about what to expect during your recovery. Follow these instructions at home: Activity ??? Use a walker or a cane as told by your health care provider. ??? Return to your normal activities as told by your health care provider. Ask your health care provider what activities are safe for you. ??? Rest to help your brain heal. Make sure you: ??? Get plenty of sleep. Avoid staying up late at night. ??? Keep to a sleep schedule. Go to sleep and wake up at about the same time every day. ??? Avoid activities that cause physical or mental stress. Lifestyle ??? Do not drink alcohol if: ??? Your health care provider tells you not to drink. ??? You are , may be , or are planning to become . ??? If you drink alcohol: ??? Limit how much you use to: ??? 0???1 drink a day for women. ??? 0???2 drinks a day for men. ??? Know how much alcohol is in your drink. In the [place] one drink equals one 12 oz bottle of beer (355 mL), one 5 oz glass of wine (148 mL), or one 1?? oz glass of hard liquor (44 mL). General instructions ??? Do not use any products that contain nicotine or tobacco. These include cigarettes, chewing tobacco, and vaping devices, such as e-cigarettes. If you need help quitting, ask your health care provider. ??? Do not drive or use heavy machinery until your health care provider approves. ??? Take icgs-bvv-rzmkkvz and prescription medicines only as told by your health care provider. ??? Keep all follow-up visits, including those with therapists. This is important. How is this prevented? You can reduce your risk of stroke by managing conditions, such as: ??? High blood pressure. ??? High cholesterol. ??? Diabetes. ??? Heart disease. ??? Obesity. Other factors and lifestyle changes that can lower your risk include: ??? Quitting smoking, limiting alcohol, and staying physically active. ??? Having your bloodwork monitored frequently if you take anticoagulants (blood thinners). Contact a health care provider if: You develop any of the following symptoms: ??? Headaches that keep coming back (that are chronic). ??? Nausea. ??? Vision problems. ??? Increased sensitivity to noise or light. ??? Depression, mood swings, anxiety, or irritability. ??? Memory problems. ??? Difficulty concentrating or paying attention. ??? Sleep problems. ??? Feeling tired all of the time. Get help right away if: ??? You have a partial or total loss of consciousness. ??? You are taking blood thinners and you fall or have a minor injury to the head. ??? You have a bleeding disorder and you fall, or you have a minor trauma to the head. ??? You have any symptoms of a stroke. BE FAST is an easy way to remember the main warning signs of a stroke: ??? B - Balance. Signs are dizziness, sudden trouble walking, or loss of balance. ??? E - Eyes. Signs are trouble seeing or a sudden change in vision. ??? F - Face. Signs are sudden weakness or numbness of the face, or the face or eyelid drooping on one side. ??? A - Arms. Signs are weakness or numbness in an arm. This happens suddenly and usually on one side of the body. ??? S - Speech. Signs are sudden trouble speaking, slurred speech, or trouble understanding what people say. ??? T - Time. Time to call emergency services. Write down what time symptoms started. ??? You have other signs of a stroke, such as: ??? A sudden, severe headache with no known cause. ??? Nausea or vomiting. ??? Seizure. These symptoms may represent a serious problem that is an emergency. Do not wait to see if the symptoms will go away. Get medical help right away. Call your local emergency services (911 in the [place] Do not drive yourself to the hospital. Summary ??? Hemorrhagic stroke is caused by bleeding in or around the brain. ??? Hemorrhagic stroke is a medical emergency. ??? Know the signs and symptoms of stroke. ??? You can reduce your risk of stroke by managing conditions, quitting smoking, and making other lifestyle changes. This information is not intended to replace advice given to you by your health care provider. Make sure you discuss any questions you have with your health care provider. Document Revised: 05/21/2021 Document Reviewed: 05/21/2021 [employer] Patient Education ?? 2021 [employer] 04/21/2022 09:39:05Form - Blood Pressure Record SheetBlood Pressure Record Sheet To take your blood pressure, you will need a blood pressure machine. You can buy a blood pressure machine (blood pressure monitor) at your clinic, drug store, or online. When choosing one, consider: ??? An automatic monitor that has an arm cuff. ??? A cuff that wraps snugly around your upper arm. You should be able to fit only one finger between your arm and the cuff. ??? A device that stores blood pressure reading results. ??? Do not choose a monitor that measures your blood pressure from your wrist or finger. Follow your health care provider's instructions for how to take your blood pressure. To use this form: ??? Get one reading in the morning (a.m.) before you take any medicines. ??? Get one reading in the evening (p.m.) before supper. ??? Take at least 2 readings with each blood pressure check. This makes sure the results are correct. Wait 1???2 minutes between measurements. ??? Write down the results in the spaces on this form. ??? Repeat this once a week, or as told by your health care provider. ??? Make a follow-up appointment with your health care provider to discuss the results. Blood pressure log Date: ??? a.m. (1st reading) (2nd reading) ??? p.m. (1st reading) (2nd reading) Date: ??? a.m. (1st reading) (2nd reading) ??? p.m. (1st reading) (2nd reading) Date: ??? a.m. (1st reading) (2nd reading) ??? p.m. (1st reading) (2nd reading) Date: ??? a.m. (1st reading) (2nd reading) ??? p.m. (1st reading) (2nd reading) Date: ??? a.m. (1st reading) (2nd reading) ??? p.m. (1st reading) (2nd reading) This information is not intended to replace advice given to you by your health care provider. Make sure you discuss any questions you have with your health care provider. Document Revised: 12/05/2020 Document Reviewed: 12/05/2020 [employer] Patient Education ?? 2021 [employer] 04/21/2022 09:39:05Form - Blood Pressure Record SheetBlood Pressure Record Sheet To take your blood pressure, you will need a blood pressure machine. You can buy a blood pressure machine (blood pressure monitor) at your clinic, drug store, or online. When choosing one, consider: ??? An automatic monitor that has an arm cuff. ??? A cuff that wraps snugly around your upper arm. You should be able to fit only one finger between your arm and the cuff. ??? A device that stores blood pressure reading results. ??? Do not choose a monitor that measures your blood pressure from your wrist or finger. Follow your health care provider's instructions for how to take your blood pressure. To use this form: ??? Get one reading in the morning (a.m.) before you take any medicines. ??? Get one reading in the evening (p.m.) before supper. ??? Take at least 2 readings with each blood pressure check. This makes sure the results are correct. Wait 1???2 minutes between measurements. ??? Write down the results in the spaces on this form. ??? Repeat this once a week, or as told by your health care provider. ??? Make a follow-up appointment with your health care provider to discuss the results. Blood pressure log Date: ??? a.m. (1st reading) (2nd reading) ??? p.m. (1st reading) (2nd reading) Date: ??? a.m. (1st reading) (2nd reading) ??? p.m. (1st reading) (2nd reading) Date: ??? a.m. (1st reading) (2nd reading) ??? p.m. (1st reading) (2nd reading) Date: ??? a.m. (1st reading) (2nd reading) ??? p.m. (1st reading) (2nd reading) Date: ??? a.m. (1st reading) (2nd reading) ??? p.m. (1st reading) (2nd reading) This information is not intended to replace advice given to you by your health care provider. Make sure you discuss any questions you have with your health care provider. Document Revised: 12/05/2020 Document Reviewed: 12/05/2020 [employer] Patient Education ?? 2021 [employer] 04/21/2022 09:38:57Eating Plan After StrokeEating Plan After Stroke A stroke causes damage to brain cells, which can affect your ability to walk, talk, and eat. The impact of a stroke is different for everyone, and so is recovery. A good nutrition plan is important foryour recovery. It can also lower your risk of another stroke. If you have difficulty chewing and swallowing your food, work with a diet and email specialist (dietitian), or your stroke care team, to make sure that you are eating healthy foods and getting all the nutrients you need. What are tips for following this plan? Reading food labels ??? Choose foods that have less than 300 milligrams (mg) of salt (sodium) per serving. Limit your sodium intake to less than 1,500 mg per day. ??? Avoid foods that have saturated fat and trans fat. ??? Choose foods that are low in cholesterol. Limit the amount of cholesterol you eat each day to less than 200 mg. ??? Choose foods that are high in fiber. Eat 20???30 grams (g) of fiber each day. ??? Avoid foods with added sugar. Check the food label for ingredients such as sugar, corn syrup, honey, fructose, molasses, and cane juice. Shopping ??? At the grocery store, buy most of your food from areas near the mast of the store. This includes: ??? Fresh fruits and vegetables. ??? Dry grains, beans, nuts, and seeds. ??? Fresh seafood, poultry, lean meats, and eggs. ??? Low-fat dairy products. ??? Buy whole ingredients instead of prepackaged foods. ??? Buy fresh, in-season fruits and vegetables from local [employer] markets. ??? Buy frozen fruits and vegetables in resealable bags. Cooking ??? Prepare foods with very little salt. Use herbs or salt-free spices instead. ??? Cook with heart-healthy oils, such as olive, avocado, canola, soybean, or sunflower oil. ??? Avoid frying foods. Bake, grill, or broil foods instead. ??? Remove visible fat and skin from meat and poultry before eating. ??? Modify food textures as told by your health care provider. Meal planning ??? Eat a variety of colorful fruits and vegetables. Make sure one-half of your plate is filled withfruits and vegetables at each meal. ??? Eat fruits and vegetables that are high in potassium, such as: ??? Apples, bananas, oranges, and melon. ??? Sweet potatoes, spinach, zucchini, and tomatoes. ??? Eat fish that contain heart-healthy fats (omega-3 fats) at least twice a week. These include salmon, tuna, mackerel, and sardines. ??? Eat plant foods that are high in omega-3 fats, such as flaxseeds and walnuts. Add these to cereals, yogurt, or pasta dishes. ??? Eat several servings of high-fiber foods each day, such as fruits, vegetables, whole grains, andbeans. ??? Do not put salt on the table for meals. ??? When eating out at restaurants: ??? Ask the server manager about low-salt or salt-free food options. ??? Avoid fried foods. Look for menu items that are grilled, steamed, broiled, or roasted. ??? Ask if your food can be prepared without butter. ??? Ask for condiments, such as salad dressings, gravy, or sauces to be served on the side. ??? If you have difficulty swallowing: ??? Choose foods that are softer and easier to chew and swallow. ??? Cut foods into small pieces and chew well before swallowing. ??? Thicken liquids as told by your health care provider or dietitian. ??? Let your health care provider know if your condition does not improve over time. You may need towork with a speech therapist to retrain the muscles that are used for eating. General recommendations ??? Involve your family and friends in your recovery, if possible. It may be helpful to have a slower meal time and to plan meals that include foods everyone in the family can eat. ??? [place] your teeth with fluoride toothpaste twice a day, and floss once a day. Keeping a clean mouth can help you swallow and can also help your appetite. ??? Drink enough water to keep your urine pale yellow. If needed, set reminders or ask your family to help you remember to drink water. ??? If you drink alcohol: ??? Limit how much you use to: ??? 0-1 drink a day for women who are not . ??? 0???2 drinks a day for men. ??? Know how much alcohol is in your drink. In the [place] one drink equals one 12 oz bottle of beer (355 mL), one 5 oz glass of wine (148 mL), or one 1?? oz glass of hard liquor (44 mL). Summary ??? Following this eating plan can help your stroke recovery and can decrease your risk of another stroke. ??? Limit your salt (sodium) and cholesterol intake. Choose foods that are high in fiber. ??? Let your health care provider know if you have problems with swallowing. You may need to work with a speech therapist. This information is not intended to replace advice given to you by your health care provider. Make sure you discuss any questions you have with your health care provider. Document Revised: 07/13/2021 Document Reviewed: 07/13/2021 [employer] Patient Education ?? 2021 [employer]. 04/21/2022 09:38:51Cognitive Rehabilitation After a StrokeCognitive Rehabilitation After a Stroke A stroke is caused by not getting enough blood flow to the brain. This can affect a person's thinking and memory. Rehabilitation is important for improving these areas. It can help with attention span,decision-making (executive function), and with the ability to recall information, such as words and o bjects. It also can help with language and perception. Rehabilitation can help to improve quality oflife. What is cognitive rehabilitation? Cognitive rehabilitation is a program to help you improve your thinking skills after a stroke. It can help with memory, problem-solving, and communication skills. Therapy focuses on: ??? Improving brain function. This may involve learning to break down tasks into simple steps. ??? Coping with thinking problems. You might learn ways to help improve your memory or do activitiesthat stimulate memory. These may include naming objects or describing pictures. Types of rehabilitation Cognitive rehabilitation refers to a group of therapies and may include: ??? Speech-language therapy to help you understand and communicate better. ??? Occupational therapy to help you with daily activities. ??? Music therapy to help with stress, anxiety, and depression. This may involve listening to music,singing, or playing instruments. ??? Physical therapy to help you get stronger and move better. These therapies may involve: ??? Helping you to learn ways to cope with memory problems, such as setting alarms to remind you to take medicines. You also may learn new strategies to help your memory. ??? Using virtual reality or video games to help you remember words, names of objects, and other things. ??? Exercise to help increase blood flow to the brain. Summary ??? After a stroke, some people have problems with thinking, memory, language, communication, and problem-solving. ??? Cognitive rehabilitation is a program to help you regain brain function and learn skills to copewith thinking problems. ??? Rehabilitation can help to improve quality of life. ??? Cognitive rehabilitation may include speech-language therapy, occupational therapy, music therapy, and physical therapy. This information is not intended to replace advice given to you by your health care provider. Make sure you discuss any questions you have with your health care provider. Document Revised: 07/19/2021 Document Reviewed: 07/19/2021 [employer] Patient Education ?? 2021 [employer]. 04/17/2022 13:27:26Warning Signs of a Stroke (RASHAUN BYRD)Warning Signs of a Stroke A stroke is a medical emergency and should be treated right away???every second counts. A stroke is caused by a decrease or block in blood flow to the brain. When this occurs, certain areas of the brain do not get enough oxygen, and brain cells begin to . A stroke can lead to brain damage and can sometimes be life-threatening. However, if someone having a stroke gets medical treatment right away, he or she has better chances of surviving and recovering from the stroke. Being able to recognize the symptoms of a stroke is very important. Types of strokes There are two main types of strokes: ??? Ischemic strokes. This is the most common type of stroke. These strokes happen when a blood vessel that supplies blood to the brain is being blocked. ??? Hemorrhagic strokes. These strokes result from bleeding in the brain due to a blood vessel leaking or bursting (rupturing). A transient ischemic attack (TIA) is a warning stroke that causes stroke-like symptoms that go away quickly. Unlike a stroke, a TIA does not cause permanent damage to the brain. However, the symptomsof a TIA are the same as a stroke, and they also require medical treatment right away. Having a TIA is a sign that you are at higher risk for a permanent stroke. Warning signs of a stroke The symptoms of stroke may vary and will reflect the part of the brain that is involved. Symptoms usually happen suddenly. BE FAST is an easy way to remember the main warning signs of a stroke. B - Balance Signs are dizziness, sudden trouble walking, or loss of balance. E - Eyes Signs are trouble seeing or a sudden change in vision. F - Face Signs are sudden weakness or numbness of the face, or the face or eyelid drooping on one side. A - Arms Signs are weakness or numbness in an arm. This happens suddenly and usually on one side of the body. S - Speech Signs are sudden trouble speaking, slurred speech, or trouble understanding what people say. T - Time Time to call emergency services. Write down what time symptoms started. Other signs of a stroke Some less common signs of a stroke include: ??? A sudden, severe headache with no known cause. ??? Nausea or vomiting. ??? Seizure. A stroke may be happening even if only one BE FAST symptoms is present. These symptoms may represent a serious problem that is an emergency. Do not wait to see if the symptoms will go away. Get medical help right away. Call your local emergency services (911 in the [place] Do not drive yourself to the hospital. Summary ??? A stroke is a medical emergency and should be treated right away???every second counts. ??? BE FAST is an easy way to remember the main warning signs of a stroke. ??? Call local emergency services right away if you or someone else has any stroke symptoms, even ifthe symptoms go away. ??? Make note of what time the first symptoms appeared. Emergency responders or emergency room staffwill need to know this information. ??? Do not wait to see if symptoms will go away. Call 911 even if only one of the BE FAST symptomsappears. This information is not intended to replace advice given to you by your health care provider. Make sure you discuss any questions you have with your health care provider. Document Released: 12/04/2017 Document Revised: 12/04/2017 Document Reviewed: 12/04/2017 [employer] Patient Education ?? 2019 [employer]. 04/17/2022 13:27:10Acute Kidney Injury, AdultAcute Kidney Injury, Adult Acute kidney injury is a sudden worsening of kidney function. The kidneys are organs that have several jobs. They filter the blood to remove waste products and extra fluid. They also maintain a healthybalance of minerals and hormones in the body, which helps control blood pressure and keep bones strong. With this condition, your kidneys do not do their jobs as well as they should. This condition ranges from mild to severe. Over time, it may develop into long- lasting (chronic) kidney disease. Early detection and treatment may prevent acute kidney injury from developing into a chronic condition. What are the causes? Common causes of this condition include: ??? A problem with blood flow to the kidneys. This may be caused by: ??? Low blood pressure (hypotension) or shock. ??? Blood loss. ??? Heart and blood vessel (cardiovascular) disease. ??? Severe hicks. ??? Liver disease. ??? Direct damage to the kidneys. This may be caused by: ??? Certain medicines. ??? A kidney infection. ??? Poisoning. ??? Being around or in contact with toxic substances. ??? A surgical wound. ??? A hard, direct hit to the kidney area. ??? A sudden blockage of urine flow. This may be caused by: ??? Cancer. ??? Kidney stones. ??? An enlarged prostate in males. What increases the risk? You are more likely to develop this condition if you: ??? Are older than age 65. ??? Are female. ??? Are hospitalized, especially if you are in critical condition. ??? Have certain conditions, such as: ??? Chronic kidney disease. ??? Diabetes. ??? Coronary artery disease and heart failure. ??? Pulmonary disease. ??? Chronic liver disease. What are the signs or symptoms? Symptoms of this condition may not be obvious until the condition becomes severe. Symptoms of this condition can include: ??? Tiredness (lethargy) or difficulty staying awake. ??? Nausea or vomiting. ??? Swelling (edema) of the face, legs, ankles, or feet. ??? Problems with urination, such as: ??? Pain in the abdomen, or pain along the side of your stomach (flank). ??? Producing little or no urine. ??? Passing urine with a weak flow. ??? Muscle twitches and cramps, especially in the legs. ??? Confusion or trouble concentrating. ??? Loss of appetite. ??? Fever. How is this diagnosed? Your health care provider can diagnose this condition based on your symptoms, medical history, and aphysical exam. You may also have other tests, such as: ??? Blood tests. ??? Urine tests. ??? Imaging tests. ??? A test in which a sample of tissue is removed from the kidneys to be examined under a microscope(kidney biopsy). How is this treated? Treatment for this condition depends on the cause and how severe the condition is. In mild cases, treatment may not be needed. The kidneys may heal on their own. In more severe cases, treatment will involve: ??? Treating the cause of the kidney injury. This may involve changing any medicines you are taking or adjusting your dosage. ??? Fluids. You may need specialized IV fluids to balance your body's needs. ??? Having a catheter placed to drain urine and prevent blockages. ??? Preventing problems from occurring. This may mean avoiding certain medicines or procedures that can cause further injury to the kidneys. In some cases, treatment may also require: ??? A procedure to remove toxic wastes from the body (dialysis or continuous renal replacement therapy, CRRT). ??? Surgery. This may be done to repair a torn kidney or to remove the blockage from the urinary system. Follow these instructions at home: Medicines ??? Take ozys-fgt-ipsgxif and prescription medicines only as told by your health care provider. ??? Do not take any new medicines without your health care provider's approval. Many medicines can worsen your kidney damage. ??? Do not take any vitamin and mineral supplements without your health care provider's approval. Many nutritional supplements can worsen your kidney damage. Lifestyle ??? If your health care provider prescribed changes to your diet, follow them. You may need to decrease the amount of protein you eat. ??? Achieve and maintain a healthy weight. If you need help with this, ask your health care provider. ??? Start or continue an exercise plan. Try to exercise at least 30 minutes a day, 5 days a week. ??? Do not use any products that contain nicotine or tobacco, such as cigarettes, e-cigarettes, and chewing tobacco. If you need help quitting, ask your health care provider. General instructions ??? Keep track of your blood pressure. Report changes in your blood pressure as told by your health care provider. ??? Stay up to date with your vaccines. Ask your health care provider which vaccines you need. ??? Keep all follow-up visits as told by your health care provider. This is important. Where to find more information ??? [place] [employer] Kidney Patients: www.aakp.org ??? National Kidney Foundation: www.kidney.org ??? [place] [employer]: www.akfinc.org ??? Life Options Rehabilitation Program: ??? www.lifeoptions.org ??? www.kidneyschool.org Contact a health care provider if: ??? Your symptoms get worse. ??? You develop new symptoms. Get help right away if: ??? You develop symptoms of worsening kidney disease, which include: ??? Headaches. ??? Abnormally dark or light skin. ??? Easy bruising. ??? Frequent hiccups. ??? Chest pain. ??? Shortness of breath. ??? End of menstruation in women. ??? Seizures. ??? Confusion or altered mental status. ??? Abdominal or back pain. ??? Itchiness. ??? You have a fever. ??? Your body is producing less urine. ??? You have pain or bleeding when you urinate. Summary ??? Acute kidney injury is a sudden worsening of kidney function. ??? Acute kidney injury can be caused by problems with blood flow to the kidneys, direct damage to the kidneys, and sudden blockage of urine flow. ??? Symptoms of this condition may not be obvious until it becomes severe. Symptoms may include edema, lethargy, confusion, nausea or vomiting, and problems passing urine. ??? This condition can be diagnosed with blood tests, urine tests, and imaging tests. Sometimes a kidney biopsy is done to diagnose this condition. ??? Treatment for this condition often involves treating the underlying cause. It is treated with fluids, medicines, diet changes, dialysis, or surgery. This information is not intended to replace advice given to you by your health care provider. Make sure you discuss any questions you have with your health care provider. Document Revised: 06/26/2020 Document Reviewed: 06/26/2020 [employer] Patient Education ?? 2021 [employer] Follow Up Care04/14/2022 11:48:28With:Nephrology, [facility] [place] Address: When: Unknown Comments:f/u refractory HTNWill call patient back, they need lab and discharge summray paperworkWith:Ophthalmology, [facility] [place] Address: When:05/14/2022 09:15:00 Comments:f/u hypertensive retinopathy.Arrive at humanities department chair 4B at 9:00amWith Dr. MckayWith:Rudy Campo Address: [facility] When:04/25/2022 14:20:00 Comments:Follow up with your PCPArrive at 2:00pmWith:[facility] [place] Neurology Address: [place], [place] When:07/01/2022 10:40:00 Comments:[facility] [place] Neurology 3C Oi Rohan Mayes APRN @ 10:40am Patient Care team information PersonnelName: Physician, No PCP
--- OUTSIDE RECORDS SUMMARY | 2022-06-06 00:35 | XMS_ITS | Encounter Summary ---
:1965 Author Organization [facility] [place] [address] Care Team Providers Name Role Phone None Primary Care Provider Unavailable Encounter Details Date Type Department Care Team Description 04/16/2022 [place]phone [place] [facility] [place]dy [place] [facility] [place] [address] NEUROLOGY [phone] [place], [place] [address] (Wo rk) Social History Tobacco Use Types Packs/Day Years Used Date Never Smoker Smokeless Tobacco: Current User Chew Alcohol Use Standard Drinks/Week Comments Yes 12 (1 standard drink = 0.6 oz pure alcoh ol) Sex Assigned at Date Recorded Not on file documented as of this encounter Plan of Treatment Upcoming Encounters Date Type Specialty Care Team Description 06/11/2022 Laboratory Appointment Lab 06/11/2022 Office Visit Nephrology Mustapha Anderson MD [facility] ER NEPHROLOGY DEPT [place], [place] [address] (Wo rk) 07/01/2022 Office Visit Neurology Devendra Mayes APRN [facility] er [address] [place] [address] (Wo rk) documented as of this encounter Visit Diagnoses Not on filedocumented in this encounter Care Teams Foam Gun Operator Relationship Specialty Start Date End Date None PCP - General 09/18/16 None documented as of this encounter
--- OUTSIDE RECORDS SUMMARY | 2022-06-06 00:35 | XMS_ITS | Encounter Summary ---
:1965 Author Organization [facility] [place] [address] Care Team Providers Name Role Phone None Primary Care Provider Unavailable Encounter Details Date Type Department Care Team Description 04/05/2022 Ancillary Procedure Radiology Library at [facility] [place] [facility] [place] [facility] [place] [address] NEUROLOGY [phone] [place], [place] [address] (Wo rk) Social History Tobacco [...] 06/11/2022 Office Visit Nephrology Mustapha Anderson MD [facility] NEPHROLOGY DEPT [place], [place] [address] (Wo rk) 07/01/2022 Office Visit Neurology Devendra Mayes, SLEEP LAB TECHNICIAN [facility] [address] [place] [address] (Wo rk) documented as of this encounter Procedures Procedure Name Priority Date/Time Associated Diagnosis Comme nts FILM LIBRARY Routine 04/05/2022 12:25 PM Results for this STORAGE ONLY CT EDT procedure ar e in HEAD the results section. documented in this encounter Results Film Library- Storage Only CT Head (04/05/2022 12:25 PM EDT) Specimen (Source) Anatomical Location Collection Method / Collectio n Time Received Time / Laterality Volume Narrative JASMEET RAD - 04/05/2022 12:25 PM EDT This exam is auto-finalizing. It's purpo se is for storage only. Luther Purdy MD IMG FILM LIBRARY ORDERABLES Performing Organization Address City/State/ZIP Code Phon e Number [place], [place] documented in this encounter Visit Diagnoses Not on filedocumented in this encounter Care Teams Armature Repairer Relationship Specialty Start Date End Date None PCP - General 09/18/16 None documented as of this encounter
--- OUTSIDE RECORDS SUMMARY | 2022-06-06 00:35 | XMS_ITS | Encounter Summary ---
:1965 Author Organization [facility] Address [facility] [place] [address] Care Team Providers Name Role Phone None Primary Care Provider Unavailable Reason for Visit Reason Comments Follow-up Encounter Details Date Type Department Care Team Description 09/18/2016 Office Visit General Surgery at [facility] [place]IV[place] [facility] follow-up Count includes the [facility] [address] [place] [address] [place] [address] [phone] Social History Tobacco Use Types Packs/Day Years Used Date Never Smoker Smokeless Tobacco: Current User Chew Alcohol Use Standard Drinks/Week Comments Yes 12 (1 standard drink = 0.6 oz pure alcoh ol) Sex Assigned at Date Recorded Not on file documented as of this encounter Progress Notes [facility]no, REVIVAL CLERK - 09/18/2016 2:00 PM EST Iain Go presents today for hospital check. Iain is s/p Fall from ladder on 09/03/16 withthe following injuries identified: Nondisplaced left fifth, sixth and seventh lateral rib fractures. L flank hematoma L distal radial fx Since discharge, Iain reports he has been doing well. He denies any new area of pain, or new complaint. He is eating, moving his bowels and voiding without difficulty. He works for [employer]. 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 return to work Reports that since his fall he notes a sense of pulling in both groin areas with walking at the end of the day Review of Systems: GENERAL:denies fevers chills, fatigue, sweats, anorexia HEENT:Denies headaches, sore throat, difficulty swallowing RESPIRATORY:Denies shortness of breath, cough, hemoptysis, or sputum production CARDIAC:Denies chest pain, dyspnea on exertion, lightheadedness, or syncopal symptoms GASTROINTESTINAL: Denies abdominal pain, nausea, vomiting, dysphagia, constipation, diarrhea, hematochezia, change in bowel habits, or jaundice GENITOURINARY:Denies dysuria, hematuria, urgency, flank pain VASCULAR:denies swelling or redness in the extremities HEMATOLOGIC:Denies new bruises, bleeding or petechiae ENDOCRINE:denies polyuria,polydipsia EXAM: GEN:Well appearing, calm of affect NAD SKIN:Intact, no new areas of ecchymosis or laceration, no jaundice HEENT:sclera clear non icteric, mucous membranes are pink and moist CARD:S1S2 rrr no cmr appreciated CHEST:Cage stable, excursion equal, respiration regular even and non labored, CTA ant/post.Left chest wall with resolving ecchymosis ABD:soft non tender, non distended, no splenomegaly,or hepatomegaly appreciated, I can appreciate noareas of fullness. There is no bulge or sense of bowing at either groin with valsalva -I examined him both standing and supine bothe area are non tender and without skin changes BACK:non tender over midline thoracic lumbar and sacral regions, negative CVAT VASC:2+palpable peripheral pulses, cap refill <2 sec, no edema, calves are soft and non tender, neg JVD at 30 degrees NEURO:Iain is AAOX3, fluent and non focal, appropriately conversant EXT:5/5 strengths, all four extremities Imagin09/18/16:CXR: The lungs appear clear. No pleural fluid or pneumothorax is seen. The cardiomediastinal silhouette, fran, pulmonary vessels appear unchanged. No interval osseous findings are seen. 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 Cleared by orthopedics in regard to his LUE fx. Otherwise, Iain may FU with us on an as needed basis documented in this encounter Plan of Treatment Upcoming Encounters Date Type Specialty Care Team Description 06/11/2022 Laboratory Appointment Lab 06/11/2022 Office Visit Nephrology Mustapha Anderson MD [facility] NEPHROLOGY DEPT [place], [place] [address] (Wo rk) 07/01/2022 Office Visit Neurology Devendra Mayes, REVIVAL CLERK [facility] [place], [place] [address] (Wo rk) documented as of this encounter Visit Diagnoses Diagnosis Hospital discharge follow-up Other follow-up examination documented in this encounter Care Teams Ranger Aide Relationship Specialty Start Date End Date None PCP - General 09/18/16 None documented as of this encounter
--- OUTSIDE RECORDS SUMMARY | 2022-06-06 00:35 | XMS_ITS | Encounter Summary ---
:1965 Author Organization [facility] [place] [address] Care Team Providers Name Role Phone None Primary Care Provider Unavailable Encounter Details Date Type Department Care Team Description 04/08/2022 Ophth Exam Ophthalmology at [facility] Adan Martinez, [facility] [place] [address] [facility] [phone] OPHTHALMOLOGY [place], [place] [address] (Wo rk) Social History Tobacco [...] 06/11/2022 Office Visit Nephrology Mustapha Anderson MD [facility] ER NEPHROLOGY DEPT [place], [place] [address] (Wo rk) 07/01/2022 Office Visit Neurology Devendra Mayes, ANA [facility] er [place], [place] [address] (Wo rk) documented as of this encounter Visit Diagnoses Not on filedocumented in this encounter Care Teams Web Content Producer Relationship Specialty Start Date End Date None PCP - General 09/18/16 None documented as of this encounter
--- OUTSIDE RECORDS SUMMARY | 2022-06-06 00:35 | XMS_ITS | Encounter Summary ---
:1965 [place] [address] Care Team Providers Name Role Phone None Primary Care Provider Unavailable Reason for Referral Diagnostic Test (Routine) - Pending Review Specialty Diagnoses / Procedures Referred By Contact Refer red To Contact Radiology Diagnoses Nontraumatic subcortical hemorrhage of cerebral hemisphere, unspecified laterality Adamaris Griffin APRN [facility] Rad Mri Procedures MRI Brain wwo Contrast (Generic) [facility] [place] [address] [place] [address] Referral ID Status Reason Start Expiration Visits Visits Date Date Requested Authorized [id number] Pending Specialty 04/14/2022 10/15/2023 1 1 Review Service Requested Consultation (Routine) - Authorized Specialty Diagnoses / Procedures Referred By Contact Refer red To Contact Nephrology Diagnoses Nontraumatic subcortical hemorrhage of cerebral hemisphere, unspecified laterality Adamaris Griffin APRN [facility] Nephrology [address] [place] [address] [place] [address] [place] [address] Referral ID Status Reason Start Date Expiration Visits Visits Date Requested Authorized [id number] Authorized Consult, 04/14/2022 04/14/2023 1 1 Test & Treat Consultation (Routine) - Closed Specialty Diagnoses / Procedures Referred By Contact Refer red To Contact Ophthalmology Diagnoses Hypertensive emergency Nontraumatic subcortical hemorrhage of cerebral hemisphere, unspecified laterality Adamaris Griffin APRN [place], [facility] Twan Velasco MD Neurology Dept [facility] [place] [address] [place] [address] Fax: Referral ID Status Reason Start Date Expiration Date Visits V isits Requested Authorized [id number] Closed Consult, 04/14/2022 04/14/2023 1 1 Test & Treat Reason for Visit Auth/Cert Specialty Diagnoses / Procedures Referred By Contact Refer red To Contact Diagnoses ICH (intracerebral hemorrhage) Hemorrhagic Stroke / HTN Jak Bolivar MD [facility] Procedures Emergency IPI [facility] [address] [place] [id number] Referral ID Status Reason Start Date Expiration Date Visits Requ ested Visits Authorized [id number] 1 1 Encounter Details Date Type Department Care Team Description 04/05/2022 - [address] Jak Bolivar MD [facility] [place] [address] Nontraumatic intracerebral hemorrhage, u nspecified cerebral location, unspecified laterality; 04/14/2022 [facility] [place] [address] Nontraumatic multiple localized intracer ebral hemorrhages, unspecified laterality; [facility] Aleja Lozoya MD [facility] [place] [address] Posterior reversible encephalopathy synd lui (PRES); [facility] Troponine hector likely demand ischemia; Drive Hypertensive emergency; [place] 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, unspecified laterality [id number] Social History Tobacco Use Types Packs/Day Years Used Date Never Smoker Smokeless Tobacco: Current User Chew Alcohol Use Standard Drinks/Week Comments Yes 12 (1 standard drink = 0.6 oz pure alcoh ol) Sex Assigned at Date Recorded Not on file documented as of this encounter Last Filed Vital Signs Vital Sign Reading Time Taken Comments Blood Pressure 162/99 04/14/2022 12:32 PM EDT Pulse 56 04/14/2022 8:25 AM EDT Temperature 36.8 ??C (98.2 ??F) 04/14/2022 12:32 PM EDT Respiratory Rate 17 04/14/2022 12:32 PM EDT Oxygen Saturation 97% 04/14/2022 12:32 PM EDT Inhaled Oxygen Concentration - - Weight 114.7 kg (252 lb 13.9 oz) 04/13/2022 5:47 AM EDT Height 180.3 cm (5' 10.98) 04/13/2022 5:47 AM EDT Body Mass Index 35.28 04/13/2022 5:47 AM EDT documented in this encounter Discharge Summaries Adamaris Griffin APRN - 04/14/2022 1:19 PM EDT Images from the original note were not included. Discharge Summary Patient Name: Denilson Go Patient Age: 56 y.o. Language: Ecuadorean Admit date: 04/05/2022 Discharge date and time: 221:23 PM Attending Physician: Aleja Lozoya MD Discharge Physician: Aleja Lozoya MD PCP: None Follow-up Recommendations for Providers: - Follow up for a hospital check visit in neurology clinic, appointment coordinated on day of discharge. - Recommend repeat MRI Brain wwo in 6-8 weeks for reassessment given PRES/signal abnormalities. Imaging ordered on day of discharge. -- Secretarial team will try to coordinate imaging prior to [facility] appt. - Continue with close blood pressure monitoring. Labetalol dosage increased to 300mg PO TID on day of discharge. Per Nephro, can increase lisinopril to 60mg PO daily next if needed. - Consider initiating aspirin and a statin per cardiology recommendations. Statin initiated on day of discharge for primary prevention per cardiology recs. -- Aspirin to be considered pending further BP control and repeat MRI brain. - Follow up with Nephrology for ongoing assistance with blood pressure monitoring given difficult tocontrol BP. Referral placed. - Follow up with retinal specialist at [facility] given finding of hypertensive retinopathy OU during inpatient ophthalmology assessment. Referral placed. - Recommend further assessment for possible sleep apnea and treatment if clinically indicated, as this may be contributing to difficult to control HTN. - Partner with PCP in management of modifiable secondary stroke risk factors. Patient needs a new PCP. Inpatient Provider Contact Information: For questions regarding this document or issues related to this hospitalization on the Neurology Service, please contact . Discharge Diagnoses: Active Hospital Problems Diagnosis ??? Posterior reversible encephalopathy syndrome (PRES) ??? Troponinemia likely demand ischemia ??? multifocal small foci of scattered infarction in setting of PRES with hypertensive emergency ??? Hypertensive emergency ??? MARY (acute kidney injury) ??? bilat thalamic hemorrhages etiology PRES with hypertensive emergency Past Medical History: Past Medical History: Diagnosis Date ??? HTN (hypertension) Active Non Hospital Problems: Active Non-Hospital Problems Diagnosis ??? Rib fracture History of Presentation: Denilson Go is a 56 y.o. left-handed male with a past medical history of HTN presenting as a transfer from [facility] for bilateral thalamic IPH. ?? Per chart review, provider report, and patient interview, he had been complaining of headaches for the last six days, with associated with nausea and blurred vision. He presented to urgent care this morning, had a negative Covid test and was advised to go to the ED for very high blood pressures, noted in OSH documentation to be 280/180. When he got to the OSH ED, initial VS: BP 263/177, HR 92, RR 18, temp 36.2C, SpO2 98% on RA. He was given Labetalol 20mg x2, with improvement to 204/113. He was given IV Tylenol 650mg for GARCIA, Zofran 4mg for nausea, and was started on Nicardipine drip. Transfer sought to [facility] for higher level of care. ?? Pertinent Data from OSH Imaging CT head bilateral acute intraparenchymal hemorrhage in the thalami, right greater than left,chronic sinusitis ?? EKG NSR with LVH, no ST elevation, 79bpm, Vannesa 170ms, QTc 491ms ?? Labs Troponin 76-->81 (wnl less than 60), WBC 11.1, K 3.1, BUN 28, Cr 2.2, GFR 30 (55 in 2017), TBili 1.5, AST 41 ?? Micro Covid-19 PCR negative Admission NIH Stroke Scale: NIH Stroke Scale Date 04/05/22 NIH Stroke Scale Time 1201 Level of Consciousness 0 LOC Questions 0 LOC Commands 0 Best Gaze 0 Vision 0 Facial Palsy 0 Motor Arm, Left 0 Motor Arm, Right 0 Motor Leg, Left 0 Motor Leg, Right 0 Limb Ataxia 0 Sensory 0 Best Language 0 Dysarthria 0 Extinction and Inattention: 0 NIH Total Score 0 Hospital Course: Denilson Go is a left-handed 56 y.o. male w/ PMHx of uncontrolled HTN lost to PCP follow up who was admitted for further evaluation of bilateral thalamic hemorrhages (?hemorrhagic infarction) in setting of hypertensive crisis/PRES. #PRES #Bilat thalamic hemorrhages (ICH score 0) #Multifocal punctate infarcts 280/180 BP noted at OSH as well as MARY. Neurological examination on admission was pertinent for headache, nausea/vomiting and blurred vision, NIHSS 0. Stability CT 6hrs after first scan showed stable area of hemorrhage with large area of hypoattenuation, likely representing vasogenic edema. Patient was monitored with frequent checks of vitals and neurological status. Telemetry monitoring showed NSR. MRI demonstrated extensive leukoaraiosis, extensive signal abnormality in bilateral thalami likely representing sequela of old ischemia and/or vasogenic edema related to hemorrhages. Also noted were innu merable small foci of intracerebral hemorrhage in a pattern consistent with longstanding hypertension. Additionally, there were numerous small foci of acute infarction scattered in bilateral cerebral hemispheres. Vascular imaging with MRA head showed no site of more than mild intracranial stenosis. TTE revealed severely increased LV wall thickness, EF 60%, no WMAs, moderately dilated left atrium, mildly dilated right atrium, and no hemodynamically significant valvular disease. See detailed reports as below. Most likely etiology of stroke was hypertensive. #Hypertensive emergency BP was difficult to control, with nephrology consulted for additional assistance. Patient was initially treated with multiple IV antihypertensives as oral regimen was titrated to best effect with slow goal of normotension. Nephrology referral placed on discharge for outpatient follow up. Also recommend sleep study to assess for possible SAMIA. #MARY Patient noted to have MARY from OSH labs. Patient was treated with IVF, avoided renal toxic medications and slowly normalized blood pressure as above, with nephrology input. Plan for outpatient nephrology follow up, referral placed. #Hypertensive retinopathy OU Ophthalmology consulted given patient report of decreased visual acuity, with difficult to perform bedside exam given baseline mental status changes and inability to follow complex commands. Per ophthalmology, His exam did demonstrate a peripapillary hemorrhage and optic nerve head swelling OD. No heather dence of vitreous hemorrhage, retinal detachment, intraocular bleeding was noted. Given the limited nature of his examination, recommend he follow-up with retina team after discharge. They also recommended aggressive antihypertensive therapy. #Demand ischemia, likely from HTN Cardiology was consulted given troponin elevation on admission and EKG demonstrating some lateral STchanges. Reassuringly, patient was asymptomatic, and troponin downtrended. TTE from 04/07/22 showed noWMA at time when troponin was beginning to uptrend. Per cardiology: Given his hospital course, longstanding HT (severely thickened LV supports this as well), this is likely demand ischemia from his HTN which is still very elevated although significantly better controlled. Do not think that patient ishaving plaque rupture ACS at this time. Their recommendation was BP optimization, initiating a statin for primary prevention, and initiating aspirin if ok from neurology standpoint. LDL 65. Per cardiology: Does not meet USPSTF guidelines for statin therapy, but given his troponin leak and possibility of baseline CAD would start on 20mg lipitor at this time. Atorvastatin 20mg daily was initiated onday of discharge. Aspirin held until BP better controlled and plan for repeat MRI brain as outpatient, with further consideration at that time. Patient was evaluated by rehabilitation services and deemed appropriate for discharge to acute rehab, [place]. Operations & Procedures: None Consultations: 1. PT/OT 2. Nephrology 3. Ophthalmology 4. Cardiology Diagnostic Tests & Neuroimaging: Study Results ECG Reading Physician Reading Date Result Priority Cheyenne Lopez MD [phone] 04/10/2022 Component Ref Range & Units 4 d ago 5 d ago Ventricular rate BPM 62 70 Atrial Rate BPM 62 70 P-R Interval ms 176 172 QRS Duration ms 110 106 Q-T Interval ms 450 482 QTC Calculated (Bezet) ms 456 520 Calculated P [place] degrees 33 40 Calculated R [place] degrees -20 -5 Calculated T [place] degrees 148 130 INTERPRETATION Normal sinus rhythm Left ventricular hypertrophy with repolarization abnormality Abnormal ECG When compared with ECG of 09-APR-2022 10:15, ST now depressed in Anterior leads QT has shortened Confirmed by MD Lopez Eric ([id number]) on 04/10/2022 12:01:32 PM Normal sinus rhythm ST & T wave abnormality, consider lateral ischemia Prolonged QT Abnormal ECG When compared with ECG of 05-APR-2022 16:08, ST no longer depressed in Anterior leads T wave inversion more evident in Anterolateral leads Confirmed by MD Lopez Eric ([id number]) on 04/09/2022 3:49:47 PM CXR No results found. CT Head CT Head wo Contrast (Generic) Result Date: 04/05/2022 Areas of hypoattenuation within the bilateral thalami most likely representing ischemic infarction. Differential diagnosis includes vasogenic edema about sites of hemorrhage but the areas of hypoattenuation are large relative to the sites of hemorrhage, the hypoattenuation is sharply marginated, and there is little mass effect. The sites of high attenuation material within each of these areas, likelyhemorrhage, are unchanged. Extensive inflammatory changes of the paranasal sinuses. Thank you for letting us participate in the care of this patient. If you are a health care provider and have any questions regarding this report, please contact the number below. For patients who have questions please contact the health animal care provider that requested your imaging first. Electronically signed by: Bret Calvert MD, [facility] ([phone]), at 04/05/2022 6:55 PM MRA Head and Neck MRI Angiogram Head wo Contrast (Generic) Result Date: 04/06/2022 No site of more than mild intracranial stenosis. Thank you for letting us participate in the care ofthis patient. If you are a health care provider and have any questions regarding this report, pleasecontact the number below. For patients who have questions please contact the health animal care provider that requested your imaging first. BRAIN MRI Brain wwo Contrast (Generic) Result Date: 04/06/2022 1. Extensive leukoaraiosis. 2. Extensive, largely nonenhancing, signal abnormality within the bilateral thalami. There is no decreased diffusion. Differential diagnosis includes sequela of old ischemia, vasogenic edema related to the sites of hemorrhage, and, less commonly, a toxic or metabolic disorder. 3. Innumerable small foci of intracerebral hemorrhage in a pattern consistent with long-standing hypertension. An additional component related to amyloid angiopathy cannot be excluded. 4. Numerous small foci of acute or subacute infarction scattered in the bilateral cerebral hemispheres Thank you for letting us participate in the care of this patient. If you are a health care provider and have anyquestions regarding this report, please contact the number below. For patients who have questions please contact the health animal care provider that requested your imaging first. Carotids/[place] of [place] No results found. TTE Interpretation Summary The left ventricular size is normal. Wall thickness is severely increased. LV function is normal with LVEF of 60% by Peters's biplane and no wall motion abnormalities. Right ventricular size and function are normal. PASP 26 mm Hg (assuming RA pressure 3 mm Hg). The left atrium is moderately dilated. The right atrium is mildly dilated. There is no hemodynamically significant valvular disease present. No prior echo for comparison. Severely increased wall thickness - this could be due to long-standinghypertension, but cannot rule out other conditions, such as amyloid. Consider cardiac MRI if clinically appropriate. Renal Artery Duplex Interpretation: ?? Right: Doppler waveforms are consistent with abnormally elevated parenchymal resistance. Main renal artery not visualized due to abdominal gas, cannot exclude a stenosis. ?? Left: Doppler waveforms are consistent with abnormally elevated parenchymal resistance. Main renal artery not visualized due to abdominal gas, cannot exclude a stenosis. ?? Comparison: ??No previous study in our vascular lab database for comparison. ? Electronically Signed by: ADAMARIS CHAKRABORTY on 2022-04-07 09:31:22 AM Labs: Lipid Panel Lab Results Component Value Date CHLPL 120 04/11/2022 HDL 32 04/11/2022 CHOLHDL 3.8 04/11/2022 TRIG 117 04/11/2022 LDLCHOL 65 04/11/2022 Glucose Lab Results Component Value Date HA1C 4.8 04/07/2022 Last wbc, hgb, hct plt Recent Labs 04/14/22 1204 WBC 7.3 HGB 12.0* HCT 35.1* Pending Studies and Lab Data: The patient will need the following 4 tests completed on: 04/05/2022 1. Renin Activity 3. Protein/Creatinine Ratio, urine 2. Aldosterone 4. Cortisol, urine, 24 hour Diagnosis: Authorizing Provider: Luther Purdy MD, Marc Norris MD, Adiel Daniel MD PT Eval: Turning from your back to your side while in a flat bed w/o using handrails?: 4 - None Standing up from a chair using your arms (e.g. wheelchair, or bedside commode)?: 3 - A Little Moving from lying on your back to sitting on the side of a flat bed w/o using bedrails?: 4 - None Moving to and from a bed to a chair (including a wheelchair): 3 - A Little To walk in hospital room?: 3 - A Little Climbing 3-5 steps with a railing?*: 2 - A Lot Anticipated Discharge Disposition (PT): acute rehabilitation facility OT Eval: How much help from another person does the patient currently need putting on and taking off regular lower body clothing?: 2 - A Lot How much help from another person does the patient currently need with bathing (including washing, rinsing, drying)?: 2 - A Lot How much help from another person does the patient currently need with toileting, which includes using toilet, bedpan or urinal?: 3 - A Little How much help from another person does the patient currently need putting on and taking off regular upper body clothing?: 3 - A Little How much help from another person does the patient currently need taking care of personal grooming such as brushing teeth?: 3 - A Little How much help from another person does the patient currently need eathing meals?: 3 - A Little Anticipated Discharge Disposition (OT): acute rehabilitation facility NEEDLE GRADER: Not indicated. Patient at functional baseline. Vital Signs at Discharge: BP: (!) 162/99, Heart Rate: 56, Temp: 36.8 ??C (98.2 ??F), Resp: 17, BMI (Calculated): 35.28 Height: 180.3 cm (5' 10.98) (04/13/22546) Weight: 114.7 kg (252 lb 13.9 oz) (04/13/22546) Physical Exam at Discharge: General: Appears stated age, WDWN, NAD HEENT: NC/AT, MMM Pulm: Normal respiratory effort CV: NRRR Abdomen: Soft, NT/ND. Extremities: BLE no edema, no obvious deformity ?? Neuro: MS:?Level of consciousness: Alert?? Orientation: situation, follows simple and complex commands. No gaze deviation, naming intact.??Slowed, but appropriate??responses, seems unsure. CN:?CN II, III - PERRLA, VF full to motion but some difficulty identifying fingers bilateral smith (right worse than left) suspect visual acuity deficit ?CN III, IV, - EOMI without??nystagmus, no ptosis ?CN V - Facial sensation intact ?CN VII - Face symmetric ?CN VIII - Hearing intact to voice/finger rub ?CN IX, X, XII - symmetric??palate elevation, tongue midline ?CN XI - SCM, trap strength intact Motor:?Bulk: No focal atrophy noted ?Tone: Normal throughout ?Abnormal movements: None observed ?Fine motor: intact, no bradykinesia ?Strength:??BUE / BLE 5/5 Sensory:?Symmetrically intact to light touch throughout Reflexes: deferred Coordination:?FNF with moderate bilateral intention tremor Gait:?Deferred Discharge NIH Stroke Scale - NIH Stroke Scale Date 04/14/22 NIH Stroke Scale Time 1201 Level of Consciousness 0 LOC Questions 0 LOC Commands 0 Best Gaze 0 Vision 0 Facial Palsy 0 Motor Arm, Left 0 Motor Arm, Right 0 Motor Leg, Left 0 Motor Leg, Right 0 Limb Ataxia 0 Sensory 0 Best Language 0 Dysarthria 0 Extinction and Inattention: 0 NIH Total Score 0 Discharge to: Rehab ([place]) Updated Allergies/ADRs: No Known Allergies Immunizations Given this Hospitalization: Immunization History Administered Date(s) Administered ??? Influenza PF, Split 09/04/2016 Discharge Medications: Your Medications New Medications Dose Details amLODIPine 10 mg Tab Commonly known as: Norvasc Take 1 tablet by mouth daily. Start taking on: April 15, 2022 10 mg Quantity: 90 tablet Refills: 3 atorvastatin 20 mg Tab Commonly known as: Lipitor Take 1 tablet by mouth daily. 20 mg Refills: 0 chlorthalidone 25 mg Tab Commonly known as: Hygroten Take 1 tablet by mouth daily. Start taking on: April 15, 2022 25 mg Quantity: 30 tablet Refills: 3 labetaloL 200 mg Tab Commonly known as: Normodyne Take 1.5 tablets by mouth 3 times daily. 300 mg Quantity: 30 tablet Refills: 3 spironolactone 25 mg Tab Commonly known as: Aldactone Take 1 tablet by mouth daily. Start taking on: April 15, 2022 25 mg Quantity: 90 tablet Refills: 3 tamsulosin 0.4 mg Cap Commonly known as: Flomax Take 2 capsules by mouth daily. Start taking on: April 15, 2022 0.8 mg Quantity: 90 tablet Refills: 3 STOPPED Medications hydroCHLOROthiazide 25 mg Tab Commonly known as: Hydrodiuril lisinopriL 20 mg Tab Commonly known as: Zestril SECONDARY STROKE PREVENTION: Preventative measure Antithrombotic Therapy Administered within 2 days of admission?: No Reason for not administering Antithrombotic Therapy by end of Day 2:: Patient has an active bleed Was antithrombotic therapy prescribed at discharge?: No Anticoagulation Therapy Prescribed at Discharge?: No Reason not given (anticoagulant):: Therapy not indicated Was statin medication prescribed at discharge?: Yes Was Guideline Recommended Statin Dose Prescribed at Discharge?: Yes Has patient had a cigarette within the last 365 days?: No Education: Patient/caregiver received written stroke discharge instructions/information?Yes The patient/caregiver accepted education on stroke warning signs and symptoms, personal modifiable stroke risk factors, activation of emergency medical systems for stroke, medications prescribed at discharge for stroke, and education on stroke follow-up. Modified Ranger Score (MRS) on discharge - Score Description 0 No symptoms at all 1 No significant disability despite symptoms; able to carry out all usual duties and activities 2 Slight disability; unable to carry out all previous activities, but able to look after own affairswithout assistance 3 Moderate disability; requiring some help, but able to walk without assistance 4 Moderately severe disability; unable to walk without assistance 5 Severe disability; bedridden, incontinent and requiring constant nursing care and attention 6 Total Score: 2 Instructions Given to Patient at Discharge: Patient Instructions Patient Instructions: You were admitted to the neurology service at [facility] Your Diagnosis: Hemorrhagic Stroke - Work closely with your primary care provider (PCP) with monitoring your blood pressure, blood sugar and cholesterol. - Lifestyle modifications should include: taking all medications as prescribed, smoking cessation orstaying away from others who are smoking to avoid second hand smoke, limiting alcohol intake, maintaining a normal/healthy weight, adhering to a healthy diet (low-fat, low-sodium, high intake of fresh fruits and vegetables, limiting red meat), and engaging in regular physical activity. - We have referred you to nephrology at [facility] for ongoing management of your difficult to control blood pressure. - We have referred you to ophthalmology given retinal concerns amid your difficult to control blood pressure and associated visual changes. - We have scheduled you for a hospital check visit in neurology clinic, appointment date/time listedbelow. Please call if needing to reschedule. - We will plan to perform a repeat MRI brain with/without contrast in 6-8 weeks for hemorrhage reassessment. This has been ordered, and we will try to assist with having this performed prior to your hospital check visit. - Please see your updated medication list, as numerous changes have been made. - Please establish care with a new PCP as soon as possible. ??? Call 911 or your local EMS if you have sudden weakness or numbness in your face or one of your limbs, slurred speech, loss of vision, or difficulty speaking. It is important to seek medical attention as soon as possible, as these symptoms could be related to a new stroke. ??? Diet: We recommend a heart healthy diet: low fat, low cholesterol, low concentrated sweets. ??? Activity Restrictions: As tolerated. ??? Driving Restrictions: No driving until cleared by a provider. Know Your Numbers! Blood Pressure BP Readings from Last 3 Encounters: 04/14/22 (!) 169/98 09/18/16 159/73 09/04/16 (!) 152/98 HA1C Lab Results Component Value Date HA1C 4.8 04/07/2022 Cholesterol Lab Results Component Value Date CHLPL 120 04/11/2022 HDL 32 04/11/2022 CHOLHDL 3.8 04/11/2022 TRIG 117 04/11/2022 LDLCHOL 65 04/11/2022 Below is an explanation of each of the cholesterol test results. Total cholesterol: This test is best when below 200. It can be improved primarily by a low fat diet. HDL (good cholesterol): The higher the better. It is best when above 50. It is primarily geneticallydetermined but can be increased with exercise. LDL (bad cholesterol): this test is best when below 130 (or below 100 if you have heart disease or below 70 if you have had a stroke or TIA). It can be lowered by a low fat diet. Triglycerides: This test is best when below 180. It can be lowered by a low fat diet, avoidance of sweets and weight loss. ??? Follow-up: ??? Neurology: You will have a follow-up appointment in the neurology clinic at [facility]. See below for the appointment time. If you do not have an appointment, you will be called with a time/date for this appointment. NOTE: In an effort to reduce possible exposure to COVID-19, some clinic appointments are being conducted via telehealth with video. We will do our best to accommodate the best visit type, either in-person or via telehealth depending on each unique patient situation. Of note, if you consent to a telehealth encounter in lieu of face to face visit, you understand the visit may be billed similar to a regular zusa-kj-xliz clinic visit. ??? Primary Care Provider: Please follow up with your Primary Care Provider within 1 to 2 weeks of discharge. For questions regarding this document or issues relating to this hospitalization on the Neurology Service, please contact the author(s) of this discharge summary through the [facility] Cad Designer . If you need to cancel or reschedule, please call Dept: [phone] as soon as possible. This is helpful to us and other waiting patients. IF FOLLOW UP VISIT WITH STROKE TEAM IS NEEDED IN FORM OF TELEHEALTH: Please ensure you have an active [employer] account and are familiar with it. Also, please ensure an active email address. To sign up for a [employer] account, Visit the [email or web address] website and 1) choose ???create an account?? 2) enter your date of 3) You will be asked if you have an activation code. If you have an activation code, click the ???yes?? button. If you do not have a code, click the ???no?? button. 4) If you do not have an activation code, you will now be asked to enter your information. 5) You will receive an email once your account has been created. If you need technical assistance call [phone] Thursday through Thursday, 7:30 am to 5:00 pm If you plan to join your [facility] Video Visit using your personal smartphone or tablet, prior to joining your visit you will need to download the Zoom ruiz from the Ruiz Store (for iPhone/iPad) or Textura (for Android). If you already have Zoom downloaded on your device for personal use, you???re good to go! 1. Open the Ruiz Store or Textura Store on your device. 2. Search for Zoom and download the Evolv Meetings ruiz. ??? Ruiz Store Link: [email or web address]://[email or web address].PocketSuite/us/ruiz/fung-mrjnb-xxzkyrkq/[email or web address] ??? Textura Link: https://[employer].Crunchbutton/store/apps/details?id=us.zoom.videomeetings If you plan to join your [facility] Video Visit using your computer or laptop, prior to joining your video visit you will need to download Zoom. If you already have Zoom downloaded on your machine for personal use, you???re good to go! 1. Open your web browser (Internet Explorer, Chrome, etc.). 2. Type zoom.us and press enter on your keyboard (or click this link: https://zoom.us/). 3. In the top right corner of the webpage, hover over Resources and click Download Zoom Client. 4. Within the Zoom Download Center, find Zoom Client for Meetings and click the associated Download button. 5. Follow the downloading prompts. 6. Once complete, your computer will have the software necessary to connect to your visit. Note: Subsequent video visits will not require a re-download of Zoom. For phone/tablet: Starting 30 minutes before your appointment, you will find the link to connect to your visit within your [employer] portal. 1. Sign into your [employer] account. 2. Select Appointments. 3. Select your [facility] Video Visit and tap Begin Visit. 4. The Zoom ruiz will launch. The ???Waiting for host to start this meeting?? screen will appear andstay until your provider enters the video visit. 5. Once the provider joins the visit you will see your video preview appear. Select Join with Video. 6. You will then be presented with an audio screen. Select Call using Internet Audio. For computer: Starting 30 minutes prior to your scheduled [facility] Video Visit, you will find the link to connect to the visit within your IntelePeer portal. 1. Sign into your IntelePeer account (IntelePeer portal link: [email or web address]). 2. On the top of the webpage, hover over Visits and select Appointments and Visits. 3. Click the Details button next to your [facility] video visit. 4. Click the Begin Video Visit button. 5. Your computer will open your default web browser. Click Open Zoom Meetings on the pop-up window that appears. 6. The below window will appear and stay until your provider enters the video visit. 7. Once the provider has entered the video visit, you will be prompted with a video preview. Click Join with Video. 8. Connect the audio portion of the visit by clicking the Phone Call button. 9. Dial one of the phone numbers listed and follow the prompts to enter your Meeting ID and Participant ID. Note: the option exists to use your computer for audio, if you choose this option please ensure you are able to confirm your microphone settings are on. General Instructions None Future Appointments and Orders Future Appointments and Orders Future Appointments Provider Department Dept Phone 07/01/2022 11:00 AM Devendra Mayes APRN Neurology at [facility] Arrive at: Triage Register Nurse Area [phone] Future Orders Complete By Expires MRI Brain wwo Contrast (Generic) [TRX286 Custom] 05/15/2022 07/15/2022 Process Instructions: Scheduling Instructions: Questions: Clinical information / galicia questions for radiologist: Patient with hypertensive emergency, PRES, b/l thalamic hemorrhages on admission. Please reassess hemorrhages and whether resolution of abnormal signal in setting of PRES. Where will study be performed?: [facility] Radiology Stat read required?: Does patient require sedation?: GA rationale: Date of injury if applicable: Referral to Nephrology [REF45 Custom] As directed Process Instructions: If no progress note charted, please enter Clinical details in comments. Scheduling Instructions: Comments: Patient admitted with b/l thalamic hemorrhages in setting of PRES. Nephrology consulted during admission for BP management. Please establish care in outpatient setting. Questions: My question or request is: See comment Referral to Ophthalmology [REF57 Custom] As directed Process Instructions: If no progress note charted, please enter Clinical details in comments. Scheduling Instructions: Questions: My question or request is: Assessed while admitted 2/2 bilateral thalamic hemorrhages, with findingof hypertensive retinopathy OU. Per ophthalmology, recommend outpatient f/u w/ retinal specialist. Primary Care Provider: None None None Discharge References/Attachments None documented in this encounter Discharge Instructions Patient InstructionsSnowAdamaris prather ANA Jacinto - 04/14/2022 12:32 PM EDT Images from the original note were not included. Patient Instructions: You were admitted to the neurology service at [facility] Your Diagnosis: Hemorrhagic Stroke - Work closely with your primary care provider (PCP) with monitoring your blood pressure, blood sugar and cholesterol. - Lifestyle modifications should include: taking all medications as prescribed, smoking cessation orstaying away from others who are smoking to avoid second hand smoke, limiting alcohol intake, maintaining a normal/healthy weight, adhering to a healthy diet (low-fat, low-sodium, high intake of fresh fruits and vegetables, limiting red meat), and engaging in regular physical activity. - We have referred you to nephrology at [facility] for ongoing management of your difficult to control blood pressure. - We have referred you to ophthalmology given retinal concerns amid your difficult to control blood pressure and associated visual changes. - We have scheduled you for a hospital check visit in neurology clinic, appointment date/time listedbelow. Please call if needing to reschedule. - We will plan to perform a repeat MRI brain with/without contrast in 6-8 weeks for hemorrhage reassessment. This has been ordered, and we will try to assist with having this performed prior to your hospital check visit. - Please see your updated medication list, as numerous changes have been made. - Please establish care with a new PCP as soon as possible. Call 911 or your local EMS if you have sudden weakness or numbness in your face or one of your limbs, slurred speech, loss of vision, or difficulty speaking. It is important to seek medical attention as soon as possible, as these symptoms could be related to a new stroke. Diet: We recommend a heart healthy diet: low fat, low cholesterol, low concentrated sweets. Activity Restrictions: As tolerated. Driving Restrictions: No driving until cleared by a provider. Know Your Numbers! Blood Pressure BP Readings from Last 3 Encounters: 04/14/22 (!) 169/98 09/18/16 159/73 09/04/16 (!) 152/98 HA1C Lab Results Component Value Date HA1C 4.8 04/07/2022 Cholesterol Lab Results Component Value Date CHLPL 120 04/11/2022 HDL 32 04/11/2022 CHOLHDL 3.8 04/11/2022 TRIG 117 04/11/2022 LDLCHOL 65 04/11/2022 Below is an explanation of each of the cholesterol test results. Total cholesterol: This test is best when below 200. It can be improved primarily by a low fat diet. HDL (good cholesterol): The higher the better. It is best when above 50. It is primarily geneticallydetermined but can be increased with exercise. LDL (bad cholesterol): this test is best when below 130 (or below 100 if you have heart disease or below 70 if you have had a stroke or TIA). It can be lowered by a low fat diet. Triglycerides: This test is best when below 180. It can be lowered by a low fat diet, avoidance of sweets and weight loss. Follow-up: Neurology: You will have a follow-up appointment in the neurology clinic at [facility]. See below for the appointment time. If you do not have an appointment, you will be calledwith a time/date for this appointment. NOTE: In an effort to reduce possible exposure to COVID-19, some clinic appointments are being conducted via telehealth with video. We will do our best to accommodate the best visit type, either in-person or via telehealth depending on each unique patient situation. Of note, if you consent to a telehealth encounter in lieu of face to face visit, you understand the visit may be billed similar to a regular ubfo-vu-nyxr clinic visit. Primary Care Provider: Please follow up with your Primary Care Provider within 1 to 2 weeks of discharge. For questions regarding this document or issues relating to this hospitalization on the Neurology Service, please contact the author(s) of this discharge summary through the [facility] Cad Designer . If you need to cancel or reschedule, please call Dept: [phone] as soon as possible. This is helpful to us and other waiting patients. IF FOLLOW UP VISIT WITH STROKE TEAM IS NEEDED IN FORM OF TELEHEALTH: Please ensure you have an active IntelePeer account and are familiar with it. Also, please ensure an active email address. To sign up for a Inte[employer]Peer account, Visit the [email or web address] website and 1) choose ???create an account?? 2) enter your date of 3) You will be asked if you have an activation code. If you have an activation code, click the ???yes?? button. If you do not have a code, click the ???no?? button. 4) If you do not have an activation code, you will now be asked to enter your information. 5) You will receive an email once your account has been created. If you need technical assistance call [phone] Thursday through Thursday, 7:30 am to 5:00 pm If you plan to join your [facility]H Video Visit using your personal smartphone or tablet, prior to joining your visit you will need to download the Zoom ruiz from the Ruiz Store (for iPhone/iPad) or Textura (for Android). If you already have Zoom downloaded on your device for personal use, you???re good to go! 1. Open the Ruiz Store or Textura Store on your device. 2. Search for Zoom and download the Evolv Meetings ruiz. ? Ruiz Store Link: [email or web address]://[email or web address]/us/ruiz/yizq-gqdvh-sktodilu/[email or web address] ? Google PowerDsine Link: https://viaCycle/store/apps/details?id=us.zoom.videomeetings If you plan to join your [facility]D-H Video Visit using your computer or laptop, prior to joining your video visit you will need to download Zoom. If you already have Zoom downloaded on your machine for personal use, you???re good to go! 1. Open your web browser (Internet Explorer, Chrome, etc.). 2. Type zoom.us and press enter on your keyboard (or click this link: https://zoom.us/). 3. In the top right corner of the webpage, hover over Resources and click Download Zoom Client. 4. Within the Zoom Download Center, find Zoom Client for Meetings and click the associated Download button. 5. Follow the downloading prompts. 6. Once complete, your computer will have the software necessary to connect to your visit. Note: Subsequent video visits will not require a re-download of Zoom. For phone/tablet: Starting 30 minutes before your appointment, you will find the link to connect to your visit within your IntelePeer portal. 1. Sign into your Inte[employer]Peer account. 2. Select Appointments. 3. Select your [facility] Video Visit and tap Begin Visit. 4. The Zoom ruiz will launch. The ???Waiting for host to start this meeting?? screen will appear andstay until your provider enters the video visit. 5. Once the provider joins the visit you will see your video preview appear. Select Join with Video. 6. You will then be presented with an audio screen. Select Call using Internet Audio. For computer: Starting 30 minutes prior to your scheduled [facility] Video Visit, you will find the link to connect to the visit within your IntelePeer portal. 1. Sign into your IntelePeer account (IntelePeer portal link: [email or web address]). 2. On the top of the webpage, hover over Visits and select Appointments and Visits. 3. Click the Details button next to your [facility] video visit. 4. Click the Begin Video Visit button. 5. Your computer will open your default web browser. Click Open Zoom Meetings on the pop-up window that appears. 6. The below window will appear and stay until your provider enters the video visit. 7. Once the provider has entered the video visit, you will be prompted with a video preview. Click Join with Video. 8. Connect the audio portion of the visit by clicking the Phone Call button. 9. Dial one of the phone numbers listed and follow the prompts to enter your Meeting ID and Participant ID. Note: the option exists to use your computer for audio, if you choose this option please ensure you are able to confirm your microphone settings are on. documented in this encounter Medications at Time of Discharge Medication Sig Dispensed Refills Start Date End Date amLODIPine (Norvasc) 10 mg Take 1 tablet by 90 tablet 3 Tablet mouth daily. tamsulosin (Flomax) 0.4 mg Take 2 capsules by 90 tablet 3 0 04/15/2022 Capsule mouth daily. atorvastatin (Lipitor) 20 Take 1 tablet by 0 03/31 mg Tablet mouth daily. chlorthalidone (Hygroten) Take 1 tablet by 30 tablet 3 03/3105/14/2022 25 mg Tablet mouth daily. spironolactone (Aldactone) Take 1 tablet by 90 tablet 3 05/14/2022 25 mg Tablet mouth daily. labetaloL (Normodyne) 200 Take 1.5 tablets by 30 tablet 3 0 04/14/2022 05/14/2022 mg Tablet mouth 3 times daily. documented as of this encounter Progress Notes Sari Barrios RN - 04/14/2022 2:00 PM EDT Denilson Go discharged to Rehab by private car with Family member. All belongings sent with patient. CJ removed, skin free from pressure ulcers. Discharge instructions, medications, and follow-up appointments reviewed, education provided on stroke s/s, HTN medication regimen, paper prescriptions given to patient, all questions answered. Report called to [facility] at 13:30. VNA paperwork faxed. Patient instructed to call with concerns. Demetrio Jean-Baptiste - 04/14/2022 11:34 AM EDTSummary: Discharge Note Office of Care Management/Business Performance Manager Patient Name: Denilson Go : 1965 Patient has been offered an acute rehab bed at [facility] for today, 04/14/22 Family to transport patient to facility via private car at 1430 No MD to MD report necessary Dr. Rankin to admit Please call Nursing Report to , ask for carriage rider. Info to accompany patient: Copies of Medication Administration Records and IV sheets for past 10 days. Plan: Business Performance Manager will be available to the patient and Stay Cutter-RN and/or Care Professionals for further assistance. Patient will be discharged to: [facility] Demetrio Jean-Baptiste Business Performance Manager Natividad Cooper OTA - 04/14/2022 9:37 AM EDT Occupational Therapy Treatment Note Treatment Number OT: 5 Patient profile: Denilson Go??is a 56 y.o.??male??with PMHx of HTN,??non- compliant with home meds (lisinopril 40mg, HCTZ) due to lack of access to PCP, presenting with bilateral thalamic hemorrhage. 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 Social History:??Pt lives with his sister & ANTONY in [place], [place] ? Home Set-Up:??Pt lives on basement level with one step to enter and ramp up to family room ? 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 Precautions/Special Considerations:??at risk to fall,??visual/perceptual deficits, SBP <180, DBP <100 ? Lines:?PIV ? Activity Orders:??Up with assistance? Diet:??cardiac diet?? Interval History/24h Events: NAEO Subjective: I'm just getting really frustrated Objective: Patient seen for therapeutic activities and demonstrated the following: Vital Signs: ??? BP taken at EOB initially 220/114, then retaken ~4 min later 161/101 (with parameters, pt asymptomatic, RN notified) Pain: ??? Denied pain Cognition: ??? Alert and oriented to self, place, month, and situation ?? Following 100% of one and two step commands appropriately; able to follow at least 3 two step commands without cues ?? Alert, cooperative, pleasant, mildly confused and occasionally frustrated by confusion ?? Delayed processing, benefits from increased time ?? Motivated to return to PLOF ?? Difficulty with L/R directional commands Vision & Perception: ??? Visual impairments wax and wane according to chart review; able to avoid objects while mobilizing ??? Mod cues for directions and positioning to line up with recliner chair prior to sitting Activities of Daily Living: ?? Donned pants while sitting EOB, pt with decreased coordination required multiple attempts to thread pants over BLE, stood with cga, attempted to tie pants while standing, required cues to sit for safety, increased time Functional Mobility: ??? Ambulated 100' in the hallway cga, FWWt; no LOB or bumping into objects; inc unsteadiness with turning but benefits from cues for slow pace; occasional cues for FWW management ??? Sit to stand from recliner chair with CGA ??? Stand to sit with CGA, cues for positioning prior to sitting in chair ??? Stood sink side with CGA for steadying Endurance: fair; completed activity without a rest break and no c/o fatigue Education: Pt/family/caregiver education ongoing regarding: balance, compensatory cognitive strategies (utilizing external cues for orientation), out of bed activity, participation in self-care tasks, safety, protocol. Staff Communication: Patient status, treatment, and mobility recommendations discussed with nursing/other staff. Pt's sister and niece arrived towards end of session. ASSESSMENT: Pt has been seen for continuation of OT POC. Pt agreeable to work with therapy, practiced dressing tasks and functional mobility, continues to display decreased coordination and balance issues and will benefit from acute rehab.. He is cooperative, pleasant, and motivated to return to his independent lifestyle. Recommend discharge to acute rehab once medically ready. Pt will benefit from ongoing therapeutic interventions to achieve pt's and therapy goals. Anticipated Discharge Disposition (OT): acute rehabilitation facility Equipment Recommendations: walker Activity Recommendations: ?? Promote normalcy by encouraging participation in common daily tasks & leisure activities by providing set up assist ?? Encourage bilateral UE integration ?? Give choices when possible to support feelings of autonomy ?? Keep glasses, hearing aides, cell phones, tablets, etc within reach ?? Facilitate a normal sleep-wake cycle ?? Provide brief, clear instruction from one source at a time ?? Reduce extraneous stimulation ?? Bathroom or commode for toileting needs vs. Using urinal &??bed polk ?? Utilize upright chair position using bed features or transfer to recliner chair as appropriate with??2A and walker ?? Encourage L<>R scanning ?? Goals:??To be achieved by 04/19/22. Ongoing Patient will complete??toilet transfer, hygiene, and hand washing with supervision and minimal verbal cues?? Patient will complete standing grooming tasks at sink with??set up, supervision, and minimal verbal cues Patient will ambulate functional household distances to bathroom & kitchenette with??supervisionand verbal cues?? Patient will follow 3/3??two??step commands consistently Met 8/12 Patient will attend to functional task for 10 mins with minimal verbal cues ?? Therapy Frequency (OT): 3-5 times/wk 30 (2x schm) Jessi Zamora OTR/L Pager: [phone] Occupational Therapy Inpatient Rehabilitation Department Yennifer Finney RN - 04/14/2022 6:50 AM EDT Pt is a/ox4, up with sba and a walker, VSS. Neuros q6w/a, unchanged. Denies pain, sob, and n/v. Fallrisks and precautions, as well as pain management and plan of care reviewed and any questions answered. Bed alarm maintained. Personal belongings and call light within reach. Will continue to monitor. Aleja Lozoya MD - 04/14/2022 6:24 AM EDT Images from the original note were not included. VASCULAR NEUROLOGY DAILY PROGRESS NOTE Admit Date 04/05/2022 Responsible Attending: Aleja Lozoya MD Primary Provider: None None Hospital Day: Hospital Day: 10 Patient ID 56 y.o. male w/PMHx of HTN, non-compliant with home meds (lisinopril 40mg, HCTZ) due to lack of access to PCP, presenting with bilateral thalamic hemorrhage suspect PRES. 24hr Events: - Blood pressure appears to be better controlled over the past 2-3 days, SBP < 180 - Doing well this morning, no new chest pain or shortness of breath - Tolerating diet, no nausea/vomiting - Voiding without difficulty EXAM Last value Range last 24 hrs Temperature Temp: 36.8 ??C (98.2 ??F) Temp: [36.4 ??C (97.5 ??F)-37 ??C (98.6 ??F)] Heart Rate Heart Rate: 64 Heart Rate: -- Blood Pressure BP: 151/89 BP: (151-178)/(89-106) Respiratory Rate Resp: 18 Resp: [16-18] SpO2 SpO2: 95 % SpO2: [94 %-98 %] General: Appears stated age, WDWN, NAD HEENT: NC/AT, MMM Pulm: Normal respiratory effort CV: NRRR Abdomen: Soft, NT/ND. Extremities: BLE no edema, no obvious deformity ?? Neuro: MS: Level of consciousness: Alert Orientation: situation, follows simple and complex commands. No gaze deviation, naming intact. Slowed, but appropriate responses, seems unsure. CN: CN II, III - PERRLA, VF full to motion but some difficulty identifying fingers bilateral smith (right worse than left) suspect visual acuity deficit CN III, IV, - EOMI without nystagmus, no ptosis CN V - Facial sensation intact CN VII - Face symmetric CN VIII - Hearing intact to voice/finger rub CN IX, X, XII - symmetric palate elevation, tongue midline CN XI - SCM, trap strength intact Motor: Bulk: No focal atrophy noted Tone: Normal throughout Abnormal movements: None observed Fine motor: intact, no bradykinesia Strength: BUE / BLE 5/5 Sensory: Symmetrically intact to light touch throughout Reflexes: deferred Coordination: FNF with moderate bilateral intention tremor ?? Gait: Deferred DATA I/O last 3 completed shifts: In: 1025 [P.O.:1025] Out: 2600 [Urine:2600] Labs Recent Labs 04/13/22 0608 04/12/22 04304/11/22 0120 04/10/22 0435 04/09/22 0050 WBC 5.2 6.4 6.2 6.6 7.4 HGB 10.9* 10.8* 10.5* 11.0* 10.7* HCT 31.3* 32.0* 31.4* 32.9* 31.0* PLATELET 203 192 197 183 177 NEUTROABS 3.37 4.30 4.12 4.66 5.24 Recent Labs 04/13/22 0608 04/12/22 0439 04/11/22 0120 04/10/22 0435 04/09/22 0050 NA 134* 135 138 140 142 K 4.0 4.1 4.1 4.1 3.9 CL 100 101 104 105 110* CO2 25 25 25 24 23 BUN 25* 24* 19 16 14 CREATININE 1.77* 1.58* 1.62* 1.66* 1.62* GLUCOSE 93 97 98 104 109 Recent Labs 04/13/22 0608 04/12/22 0439 04/11/22 0120 CALCIUM 9.0 9.0 9.1 MAGNESIUM 0.86 0.84 0.77 PHOS 3.9 3.6 4.1 No results for input(s): AST, ALT, ALKPHOS, BILITOT, BILIDIR, LDH in the last 168 hours. Recent Labs 04/10/22 1554 04/10/22 0435 04/09/22 1155 TROPONINT 0.26* 0.32* 0.29* No results for input(s): PHART, SAE2ZDQ, PO2ART, JRU2YJQ in the last 168 hours. No results for input(s): INR in the last 72 hours. Lipid Panel Lab Results Component Value Date CHLPL 120 04/11/2022 HDL 32 04/11/2022 CHOLHDL 3.8 04/11/2022 TRIG 117 04/11/2022 LDLCHOL 65 04/11/2022 Lab Results Component Value Date HA1C 4.8 04/07/2022 Micro - cultures/sensitivities UCx - None CSF - None Blood Cx - None Resp Cx - None Imaging/EKG NONE NEW ASSESSMENT & PLAN Denilson Go 56 y.o. male with PMHx HTN admitted with bilateral thalamic hemorrhage and PRES. We continue to adjust oral antihypertensives with collaboration of nephrology. Holding steady through weekend to allow current regimen to stabilize. Utilize PRNs as needed, continue to encourage PO intake. Cr slowly improving, also likely related to hypertensive emergency. Cardiology evaluated pt, signed off with no acute concerns. They recommend considering aspirin and statin for primary prevention when safe. 04/14/22 Doing well this morning without any acute changes or issues. Will coordinate further care with nephrology, but overall doing well and BP well controlled. Will need outpt Opto evaluation in 1-2months. #Neuro - PRES - neuro checks/VS Q4 - HOB > 30 deg - PT/OT eval and treat #CV - troponin leak- improving - strict SBP < 180, treat w/PRN labetalol or hydralizine - check lipid profile --> LDL 65 --> cards rec statin - lisinopril 20mg daily - amlodipine 10mg daily - chlorthalidone 25mg daily - labetalol 200mg TID #Pulm - - goal SpO2> 94% - IS at bedside - nebs PRN #GI - - follow up [employer] recs - Daily Healthy Menu Choices/Cardiac diet ([facility]-Diet) - maintain bowel reg - GI ppx: N/A #FEN/ - BPH - flomax 0.8mg daily - maintain euvolemia, I=O - Fluids: N/A - Goal Na 135-145, K > 4, Mg > 1 # Heme - - goal Hgb > 7, INR < 1.5, Platelets > 50k - DVT ppx: heparin 5,000U Q8, SCDs # Endo - - goal glucose 120-180 --> ISS Recent Labs 04/07/22 0430 HA1C 4.8 # ID - - for temp > 38C --> UA, CXR, blood cx, sputum cx - tylenol PRN # Other - Activity: as tolerated - Dispo: pending d/c to acute rehab - Last BM: Last Bowel Movement: 04/12/22 - code status: Attempt Cardiopulmonary Resuscitation - Inpatient Patient Lines/Drains/Airways Status Active Tubes/Lines/Drains Name Placement date Placement time Site Days Peripheral IV Line - Single Lumen 04/05/22 1200 basilic vein (medial side of arm), left 04/05/22 1200 -- 9 Peripheral IV Line - Single Lumen 04/05/22 1200 basilic vein (medial side of arm), right 18 gauge 04/05/22 1200 -- 9 Please page Vascular Neurology with any questions, #[phone] Trent Norris MD PYG2 Department [place] [address] Neurology Attending Attestation I evaluated the patient with the Stroke Team during bedside rounds on 04/14/2022. I have reviewed themedical records and patient's history, as well as the resident???s history and examination findings and I agree with the details as written. My neurologic examination confirms the resident???s findings. We formulated the assessment and plan after a detailed discussion, as documented. Aleja Lozoya MD Vascular Neurology Adiel Rae MD - 04/14/2022 5:25 AM EDT Images from the original note were not included. [facility] NEPHROLOGY/HYPERTENSION PROGRESS NOTE PATIENT: Denilson Go : 1965 None REASON FOR CONSULTATION: HTN INTERVAL HISTORY: Patient yesterday was added spironolactone 25mg daily. Neuro's recommendations are to attempt inpatient rehab when medically optimized. Today, patient is doing well. BP = 150s this AM. The patient is voiding well without catheter. Cr trended up from 1.58 ---> 1.77. ROS: 4 point review of sytem was done, everything was negative except for what was mentioned above. INTAKE/OUTPUTS: Intake/Output Summary (Last 24 hours) at 04/14/2022 0525 Last data filed at 04/13/2022 1206 Gross per 24 hour Intake 225 ml Output 550 ml Net -325 ml MEDICATIONS: ??? spironolactone 25 mg Oral Daily ??? chlorthalidone 25 mg Oral Daily ??? amLODIPine 10 mg Oral Daily ??? labetaloL 200 mg Oral TID ??? tamsulosin 0.8 mg Oral Daily ??? heparin (porcine) 5,000 Units Subcutaneous Q8H WILLIAM ??? lisinopriL 20 mg Oral Daily ??? senna-docusate 2 tablet Oral BID ??? polyethylene glycoL (MIRALAX) oral powder 17 g Oral Daily Vasoactive/Sedating Meds: VITALS: Last value Range last 24 hrs Temperature Temp: 36.8 ??C (98.2 ??F) Temp: [36.4 ??C (97.5 ??F)-37 ??C (98.6 ??F)] Heart Rate Heart Rate: 64 Heart Rate: -- Blood Pressure BP: 151/89 BP: (151-178)/(89-106) Respiratory Rate Resp: 18 Resp: [16-18] SpO2 SpO2: 95 % SpO2: [94 %-98 %] Ventilator: Mode Rate TV PEEP FiO2 Pplateau PHYSICAL EXAM: Patient is awake alert not in acute distress. Resting comfortably No jaundice oral mucosa moist Neck- supple trachea central. No masses on neck Chest- bilateral air entry present clear to auscultation no wheeze no crepitation. CVS-S1-S2 present, no murmur regurgitation gallops. Abdomen-nontender nondistended, bowel sounds present. No abdominal bruits heard. Extremities-peripheral pulses present +2 Pitting Edema Neuro-patient is awake alert, moving all 4 limbs, motor examination is grossly normal. No asterixis. STUDIES: LABS: CBC: Recent Labs 04/13/22 0608 04/12/22 0439 04/11/22 0120 WBC 5.2 6.4 6.2 HGB 10.9* 10.8* 10.5* PLATELET 203 192 197 Chemistry: Recent Labs 04/13/22 0608 04/12/22 0439 04/11/22 012 NA 134* 135 138 K 4.0 4.1 4.1 CL 100 101 104 CO2 25 25 25 BUN 25* 24* 19 CREATININE 1.77* 1.58* 1.62* GLUCOSE 93 97 98 Recent Labs 04/13/22 0608 04/12/22 04304/11/22 012 CALCIUM 9.0 9.0 9.1 MAGNESIUM 0.86 0.84 0.77 PHOS 3.9 3.6 4.1 ABG (Arterial Blood Gas) No results for input(s): PHART, WDF5BJL, PO2ART, QVL3TQQ, LACTATEVEN, TDU8QPN, PFRATIOART2 in the last 168 hours. VBG (Venous Blood Gas) No results for input(s): PHVEN, ALZ2CAV, PO2VEN, WZJ8CXE, LACTATEVEN in the last 168 hours. Mixed Venous Sat No results for input(s): S8BDTV4 in the last 168 hours. LFT's: Recent Labs 04/05/22 1535 BILITOT 1.3 BILIDIR 0.6* ALBUMIN 4.1 ALKPHOS 65 ALT 37 AST 32 Prot/Cre Ratio Date Value Ref Range Status 04/11/2022 0.2 ratio Final No results found for: TPROTEINPEP, ALBELECT Lab Results Component Value Date [id number] 58.9 04/11/2022 Lab Results Component Value Date HA1C 4.8 04/07/2022 Lab Results Component Value Date PTH 47 04/10/2022 CALCIUM 9.0 04/13/2022 PHOS 3.9 04/13/2022 Latest Reference Range & Units 04/11/22 11:45 Urine TV (ml) mL 1,750 Hours Collected hour(s) 24 U Albumin/24h 0 - 29 mg/24hr 103 (H) U24 Albumin Concentration mg/L 58.9 (H): Data is abnormally high No results found for: 25OHVITD MICROBIOLOGY: IMAGING: ASSESSMENTS + IMPRESSIONS: - Uncontrolled HTN with Recent Hx of Emergent HTN - Concern for Secondary Hypertension - Acute Kidney Injury likely 2/2 to HTN Injury - Acute Urinary Retention s/p Summers - PRES Syndrome 56 yo M with severe HTN presented and treated for PRES syndrome. Patient's BP has been difficult tomanage while inpatient. Results for most secondary HTN workup has been unremarkable thus far including TSH, ECHO, renal artery scan, etc. Patient has a pending renin level; however, the chances of a primary hyperaldosteronism are very low at this point with an aldosterone of 4 or less. Also waiting onfinal results of cushings workup with 24 hour cortisol level. Patient's BP currently managed with Amlodipine 10mg, chlorthalidone 25 mg d, labetalol 200mg TID, Lisinopril 20mg daily, Aldactone 25mg daily, and Flomax 0.8mg daily. It should be noted that maximum dosages on some medications are yet to beattained. Overall, given his lack of remarkable secondary HTN workup, patient's HTN is likely is an uncontrolled and prolonged form of essential HTN. PLAN: - OK to continue current antihypertensive regimen. - Would recommend increasing labetalol to 300mg TID and/or increasing lisinopril to 60/80 mg daily. - Patient to benefit from a sleep study - Would recommend renal ultrasound scan - Would recommend obtaining plasma metanephrines to complete objective secondary HTN workup. Avoid nephrotoxic medications including NSAIDs and contrast. Thanks for letting us participate in the care of this patient. 04/14/2022 Adiel Mednosa M.D., M.P.H., M.H.A. PGY-IV Nephrology-Hypertension Fellow Page # [phone] [facility] [address] [facility] [address] 2nd floor, Triage Register Nurse [address] [place] [address] Associated attestation - Bernice Russell MD - 04/14/2022 4:53 PM EDT I have seen and examined the patient and reviewed the data and discussed the case with Dr Mendosa His note accurately reflects our joint assessment and recommendations . In summary malignant hypertension with PRES. most likely etiology is uncontrolled longstanding essential hypertension with medication noncompliance. Blood pressure is not adequately controlled, howeverthe patient is otherwise stable. Recommend increase doses of current medications sequentially: Lisinopril to 40 mg, then 60 mg and 80 mg daily Chlorthalidone increase to 50 mg daily - may switch to HCTZ because less expensive med. Labetalol increase to 300 mg 3 times daily Lexus Thayer DT - 04/13/2022 5:12 PM EDT Nutrition Services Note - Low Nutrition Acuity Denilson Go is a 56 y.o. male Reason for intervention: hospital day 9 Nutrition Plan: Continue current diet. Monitor weight. Encourage good oral intake. Support and encouragement provided. Met with pt on bedside. Pt endorsed excellent intake. Pt loves and enjoying all the tray that he received. Active Orders Diet Daily Healthy Menu Choices/Cardiac diet ([facility]-Diet) Frequency: Effective Now Number of Occurrences: Until Specified Admit Weight: 114.2 kg Estimated body mass index is 35.28 kg/m?? as calculated from the following: Height as of this encounter: 180.3 cm (5' 10.98). Weight as of this encounter: 114.7 kg (252 lb 13.9 oz). Wt Readings from Last 5 Encounters: 04/13/22 114.7 kg (252 lb 13.9 oz) 10/23/16 (!) 131.5 kg (290 lb) 09/18/16 (!) 133.8 kg (295 lb) 09/04/16 (!) 143.1 kg (315 lb 8 oz) Weight loss: none Appetite: Excellent (75%-100%) Food allergies:no known food allergies Chewing/Swallowing difficulty: none Nausea/Vomiting: no nausea and no vomiting Last Bowel Movement: 08/13/22 Patient education / questions: all nutrition related questions answered at this time Nutrition services to follow weekly through hospital course unless consulted in the interim. LENNY Guillory EXT [phone] Evette Wilson MD - 04/13/2022 3:09 PM EDT NEPHROLOGY PROGRESS NOTE PATIENT: Denilson Go : 1965 Interval History: Patient seen and examined at bedside. He is not in any distress and states he has some visual changes (initially admitted with B/L thalamic hemorrhage and PRES). Vital signs reviewed.Nephrology is following for HTN. Patient Vitals for the past 24 hrs: BP Temp Temp src Resp SpO2 Height Weight 04/13/22 1205 (!) 169/106 36.4 ??C (97.5 ??F) Oral 17 98 % -- -- 04/13/22 0710 (!) 178/103 36.4 ??C (97.5 ??F) Oral 16 97 % -- -- 04/13/22 0547 -- -- -- -- -- 180.3 cm (5' 10.98) 114.7 kg (252 lb 13.9 oz) 04/12/22 2345 (!) 157/93 36.2 ??C (97.1 ??F) Oral 14 96 % -- -- 04/12/22 2000 (!) 155/92 36.4 ??C (97.6 ??F) Oral 15 97 % -- -- 04/12/22 1800 -- -- -- -- 96 % -- -- 04/12/22 1600 -- -- -- -- 97 % -- -- 04/12/22 1545 149/88 36.8 ??C (98.2 ??F) Oral 16 99 % -- -- Recommended addition of Spironolactone 25 mg daily po. Talked to the primary team and they are goingto add it. Assessment and Plan: A 56 year old male with PMHx uncontrolled HTN, MARY, PRES, B/L thalamic hemorrhages, acute urinary retention seen and examined at bedside. #Uncontrolled HTN #MARY #PRES syndrome - Patient is having addition of Spironolactone today. He is already on Amlodipine 10 mg daily, Chlorthalidone 25 mg daily, Labetalol 200 mg TID, Lisinopril 20 mg daily, Flomax 0.8 mg daily. He denies chest pain or shortness of breath but is c/o intermittent visual changes. No headaches. No new neurolog ical complaints. - Low sodium diet. - His creatinine today is 1.77. There is likely a hemodynamic component to it. His urine output is optimal at 2.6 liter in last 24 hours. Review daily. He is net negative by 1.8 liter in last 24 hours. He is on Chlorthalidone and Spironolactone now. May need to titrate the diuretics and the fluid intake while monitoring his blood pressure. Avoid NSAIDs or any other nephrotoxic medications. Spot UPC on 04/11/2022 - 0.2. Creatinine Date Value Ref Range Status 04/13/2022 1.77 (H) 0.80 - 1.50 mg/dL Final 04/12/2022 1.58 (H) 0.80 - 1.50 mg/dL Final 04/11/2022 1.62 (H) 0.80 - 1.50 mg/dL Final 04/10/2022 1.66 (H) 0.80 - 1.50 mg/dL Final 04/09/2022 1.62 (H) 0.80 - 1.50 mg/dL Final 04/08/2022 1.52 (H) 0.80 - 1.50 mg/dL Final 04/07/2022 1.68 (H) 0.80 - 1.50 mg/dL Final - Sodium - 134 mmol/L, potassium 4.0 mmol/l. - Bicarbonate is 25 mmol/L. Normal. - Hemoglobin is 10.9 g/dL. TSAT on 04/10/2022 - 43%. - Phosphorus 3.9 mg/dL. PHYSICAL EXAM: Last value Temperature Temp: 36.4 ??C (97.5 ??F) Heart Rate Heart Rate: 64 Blood Pressure BP: (!) 169/106 Respiratory Rate Resp: 17 SpO2 SpO2: 98 % General - AAOx4. No distress. HEENT - Atraumatic. Normocephalic. Neck - No JVD Respiratory - B/L CTA. Cardiovascular - S1S2N. Abdomen - Soft. Non tender. No bruit. Extremities - 1+ pitting edema. Psychiatric - No agitation Neurological - No new FND Current Facility-Administered Medications Medication Dose Route Frequency Provider Last Rate Last Admin ??? hydrALAZINE (Apresoline) (20 mg/mL) injection 10 mg 10 mg Intravenous Q4H PRN Sahra Juan APRN ??? chlorthalidone (Hygroten) tablet 25 mg 25 mg Oral Daily Marc Norris MD 25 mg at 04/13/22 0853 ??? amLODIPine (Norvasc) tablet 10 mg 10 mg Oral Daily Marc Norris MD 10 mg at 04/13/22 0852 ??? labetaloL (Normodyne) tablet 200 mg 200 mg Oral TID Sahra Juan APRN 200 mg at 04/13/22 1420 ??? tamsulosin (Flomax) capsule 0.8 mg 0.8 mg Oral Daily Marc Norris MD 0.8 mg at 04/13/22 0853 ??? heparin (porcine) (5,000 units/1 mL) subcutaneous injection 5,000 Units 5,000 Units [id number] WILLIAM Marc Norris MD 5,000 Units at 04/13/22 1420 ??? lisinopriL (Zestril) tablet 20 mg 20 mg Oral Daily Marc Norris MD 20 mg at 04/13/22 0853 ??? sodium chloride 0.9 % (flush) (BD PosiFlush Normal Saline 0.9) flush 5-20 mL 5-20 mL IntravenousQ1 Min PRN Marc Norris MD 5 mL at 04/13/22 0853 ??? labetaloL (Normodyne) (5 mg/mL) injection solution 10-20 mg 10-20 mg Intravenous Q15 Min PRN Marc Norris MD 10 mg at 04/11/225 ??? senna-docusate (Pericolace) 8.6-50 mg per tablet 2 tablet 2 tablet Oral BID Marc Norris MD 2 tablet at 04/12/222037 ??? polyethylene glycoL (Miralax) packet 17 g 17 g Oral Daily Marc Norris MD 17 g at 04/12/22 0825 ??? bisacodyL (Dulcolax) suppository 10 mg 10 mg Rectal Daily PRN Marc Norris MD ??? acetaminophen (Tylenol) tablet 975 mg 975 mg Oral Q6H PRN Marc Norris MD 975 mg at 04/12/22 1857 Or ??? acetaminophen (Tylenol) (32.02 mg/mL) oral liquid 975 mg 975 mg Per G Tube Q6H PRN Marc Norris MD Or ??? acetaminophen (Tylenol) suppository 975 mg 975 mg Rectal Q6H PRN Marc Norris MD Recent Results (from the past 18 hour(s)) Magnesium Collection Time: 04/13/22 6:08 AM Result Value Ref Range Magnesium 0.86 0.69 - 1.07 mmol/L Phosphorus Collection Time: 04/13/22 6:08 AM Result Value Ref Range Phosphorus 3.9 2.5 - 4.5 mg/dL Basic Metabolic Panel (non-fasting) Collection Time: 04/13/22 6:08 AM Result Value Ref Range Glucose Lvl 93 65 - 199 mg/dL BUN 25 (H) 10 - 20 mg/dL Creatinine 1.77 (H) 0.80 - 1.50 mg/dL Sodium 134 (L) 135 - 145 mmol/L Potassium 4.0 3.5 - 5.0 mmol/L Chloride 100 98 - 107 mmol/L CO2 25 22 - 31 mmol/L Anion Gap 9 5 - 15 mmol/L Calcium 9.0 8.5 - 10.5 mg/dL Estimated GFR 44 (L) >=60 mL/min/1.73 m?? Hemogram Collection Time: 04/13/22 6:08 AM Result Value Ref Range WBC 5.2 4.0 - 9.5 x10(3)/mcL RBC 3.51 (L) 4.58 - 5.54 x10(6)/mcL Hemoglobin 10.9 (L) 13.7 - 16.5 g/dL Hematocrit 31.3 (L) 40.5 - 48.5 % MCV 89.2 82.9 - 93.1 fL MCH 31.1 27.5 - 32.1 pg MCHC 34.8 32.0 - 35.7 g/dL Platelets 203 145 - 357 x10(3)/mcL RDWSD 43.0 36.0 - 45.0 fL RDWCV 13.2 11.4 - 13.8 % MPV 10.2 7.6 - 12.9 fL nRBC % Auto 0.0 % nRBC Abs Auto 0.000 0.000 - 0.000 x10(3)/mcL Differential, Automated Collection Time: 04/13/22 6:08 AM Result Value Ref Range Neutrophils % 64.5 % Neutr Abs (ANC) 3.37 1.70 - 6.10 x10(3)/mcL Lymphocytes % 20.5 % Lymphocytes Abs 1.1 0.9 - 3.2 x10(3)/mcL Monocytes % 9.4 % Monocyte Abs 0.5 0.3 - 0.9 x10(3)/mcL Eosinophils % 4.4 % Eosinophils Abs 0.2 0.0 - 0.4 x10(3)/mcL Basophils % 0.8 % Basophils Abs 0.0 0.0 - 0.1 x10(3)/mcL Immature Gran % 0.40 % [place] Gran Abs 0.02 0.00 - 0.04 x10(3)/mcL Evette Wilson #[id number] Associated attestation - Lou Stone MD - 04/14/2022 8:13 AM EDT The patient was seen and examined with the nephrology fellow. Please see the nephrology fellow's note from today for details. I have reviewed the fellow's note and agree with the exam, and assessment and plan. Lou Stone MD Nephrology Pager: [phone] Sahra Juan APRN - 04/13/2022 10:40 AM EDT Images from the original note were not included. VASCULAR NEUROLOGY DAILY PROGRESS NOTE Admit Date 04/05/2022 Responsible Attending: Aleja Lozoya MD Primary Provider: None None Hospital Day: Hospital Day: 9 Patient ID 56 y.o. male w/PMHx of HTN, non-compliant with home meds (lisinopril 40mg, HCTZ) due to lack of access to PCP, presenting with bilateral thalamic hemorrhage suspect PRES. 24hr Events: - BP elevated, no PRNs needed in past 24hrs - Pt up ambulating with walker, good balance but needs assistance ?2/2 vision - No new complaints today, taking good PO, pleasant mood - NEON, VSS EXAM Last value Range last 24 hrs Temperature Temp: 36.4 ??C (97.5 ??F) Temp: [36.2 ??C (97.1 ??F)-36.8 ??C (98.2 ??F)] Heart Rate Heart Rate: 64 Heart Rate: -- Blood Pressure BP: (Abnormal) 178/103 BP: (149-183)/(88-111) Respiratory Rate Resp: 16 Resp: [14-16] SpO2 SpO2: 97 % SpO2: [96 %-99 %] General: Appears stated age, WDWN, NAD HEENT: NC/AT, MMM Pulm: Normal respiratory effort CV: NRRR Abdomen: Soft, NT/ND. Extremities: BLE no edema, no obvious deformity ?? Neuro: MS: Level of consciousness: Alert Orientation: situation, follows simple and complex commands. No gaze deviation, naming intact. Slowed, but appropriate responses, seems unsure. CN: CN II, III - PERRLA, VF full to motion but some difficulty identifying fingers bilateral smith (right worse than left) suspect profound visual acuity deficit CN III, IV, - EOMI without nystagmus, no ptosis CN V - Facial sensation intact CN VII - Face symmetric CN VIII - Hearing intact to voice/finger rub CN IX, X, XII - symmetric palate elevation, tongue midline CN XI - SCM, trap strength intact Motor: Bulk: No focal atrophy noted Tone: Normal throughout Abnormal movements: None observed Fine motor: intact, no bradykinesia Strength: BUE / BLE 5/5 Sensory: Symmetrically intact to light touch throughout Reflexes: deferred Coordination: FNF with moderate bilateral intention tremor ?? Gait: Deferred DATA I/O last 3 completed shifts: In: 1150 [P.O.:1150] Out: 3600 [Urine:3600] Labs Recent Labs 04/13/22 0608 04/12/22 0439 04/11/22 0120 04/10/22 0435 04/09/22 0050 WBC 5.2 6.4 6.2 6.6 7.4 HGB 10.9* 10.8* 10.5* 11.0* 10.7* HCT 31.3* 32.0* 31.4* 32.9* 31.0* PLATELET 203 192 197 183 177 NEUTROABS 3.37 4.30 4.12 4.66 5.24 Recent Labs 04/13/22 0608 04/12/22 0439 04/11/22 0120 04/10/22 0435 04/09/22 0050 NA 134* 135 138 140 142 K 4.0 4.1 4.1 4.1 3.9 CL 100 101 104 105 110* CO2 25 25 25 24 23 BUN 25* 24* 19 16 14 CREATININE 1.77* 1.58* 1.62* 1.66* 1.62* GLUCOSE 93 97 98 104 109 Recent Labs 04/13/22 0608 04/12/22 0439 04/11/22 0120 CALCIUM 9.0 9.0 9.1 MAGNESIUM 0.86 0.84 0.77 PHOS 3.9 3.6 4.1 No results for input(s): AST, ALT, ALKPHOS, BILITOT, BILIDIR, LDH in the last 168 hours. Recent Labs 04/10/22 1554 04/10/22 0435 04/09/22 1155 TROPONINT 0.26* 0.32* 0.29* No results for input(s): PHART, LVI4QAZ, PO2ART, UZI8PPY in the last 168 hours. No results for input(s): INR in the last 72 hours. Lipid Panel Lab Results Component Value Date CHLPL 120 04/11/2022 HDL 32 04/11/2022 CHOLHDL 3.8 04/11/2022 TRIG 117 04/11/2022 LDLCHOL 65 04/11/2022 Lab Results Component Value Date HA1C 4.8 04/07/2022 Micro - cultures/sensitivities UCx - None CSF - None Blood Cx - None Resp Cx - None Imaging/EKG NONE NEW ASSESSMENT & PLAN Denilson Go 56 y.o. male with PMHx HTN admitted with bilateral thalamic hemorrhage and PRES. We continue to adjust oral antihypertensives with collaboration of nephrology. Holding steady through weekend to allow current regimen to stabilize. Utilize PRNs as needed, continue to encourage PO intake. Cr slowly improving, also likely related to hypertensive emergency. Cardiology evaluated pt, signed off with no acute concerns. They recommend considering aspirin and statin for primary prevention when safe. 04/13/22 No changes to current medical regimen today. Neurologically stable. He is pending inpt rehab when medically optimized, hopefully Thursday after we touch base with nephrology. Will need outpt Opto evaluation in 1-2 months. #Neuro - PRES - neuro checks/VS Q4 - HOB > 30 deg - PT/OT eval and treat #CV - troponin leak- improving - strict SBP < 180, treat w/PRN labetalol or hydralizine - check lipid profile --> LDL 65 --> cards rec statin - lisinopril 20mg daily - amlodipine 10mg daily - chlorthalidone 25mg daily - labetalol 200mg TID #Pulm - - goal SpO2> 94% - IS at bedside - nebs PRN #GI - - follow up [employer] recs - Daily Healthy Menu Choices/Cardiac diet ([facility]-Diet) - maintain bowel reg - GI ppx: N/A #FEN/ - BPH - flomax 0.8mg daily - maintain euvolemia, I=O - Fluids: N/A - Goal Na 135-145, K > 4, Mg > 1 # Heme - - goal Hgb > 7, INR < 1.5, Platelets > 50k - DVT ppx: heparin 5,000U Q8, SCDs # Endo - - goal glucose 120-180 --> ISS Recent Labs 04/07/22 0430 HA1C 4.8 # ID - - for temp > 38C --> UA, CXR, blood cx, sputum cx - tylenol PRN # Other - Activity: as tolerated - Dispo: pending d/c to acute rehab - Last BM: Last Bowel Movement: 04/12/22 - code status: Attempt Cardiopulmonary Resuscitation - Inpatient Patient Lines/Drains/Airways Status Active Tubes/Lines/Drains Name Placement date Placement time Site Days Peripheral IV Line - Single Lumen 04/05/22 1200 basilic vein (medial side of arm), left 04/05/22 1200 no documentation 8 Peripheral IV Line - Single Lumen 04/05/22 1200 basilic vein (medial side of arm), right 18 gauge 04/05/22 1200 no documentation 8 Please page Vascular Neurology with any questions, #[phone] Sahra Juan APRN #[id number] Department of Neurology [place] [phone] [place] Kevin Baker RN - 04/13/2022 4:11 AM EDT OUTCOME EVALUATION NOTE: ?? OUTCOME SUMMARY: ?? Pt ALNO X 4, RA, Neuro assessment WNL, denies chest pains and discomfort, BP elevated throughout theshift but within Pt target range. Voids normal with no retention, PVR =0 most part. Pt slept well through the night with no acute distress noted. ?? PLAN MOVING FORWARD: ?? Neuro and V/S Fall precaution D/C Plaining ?? INDIVIDUALIZED FALL PREVENTION INTERVENTIONS: ?? Patient-specific fall risk factors per assessment: iv sites, generalized weakness ?? Assistance: SBA with FWW ?? Supervision: Eyes on ?? Surveillance: Bed locked in low position, call lucio within reach, purposeful hourly rounding, clutter free environment, bed/chair alarm on, family at bedside ?? Patient-specific fall prevention interventions for sensory deficits provided: Yes ?? CPG GOAL OUTCOME EVALUATION: ?? Continue care plan as documented. Sahra Juan APRN - 04/12/2022 1:13 PM EDT Images from the original note were not included. VASCULAR NEUROLOGY DAILY PROGRESS NOTE Admit Date 04/05/2022 Responsible Attending: Aleja Lozoya MD Primary Provider: None None Hospital Day: Hospital Day: 8 Patient ID 56 y.o. male w/PMHx of HTN, non-compliant with home meds (lisinopril 40mg, HCTZ) due to lack of access to PCP, presenting with bilateral thalamic hemorrhage suspect PRES. 24hr Events: - BP elevated, PRN labetalol X1 - cardiology signed off, troponin improved - nephrology following, rec to continue stable antihypertensive regimen through weekend - clinically stable, no neurological changes - pt c/o LLE discomfort r/t being in bed/lack of physical activity - tolerable, not requesting any medications - stable labs EXAM Last value Range last 24 hrs Temperature Temp: 36.8 ??C (98.2 ??F) Temp: [36.4 ??C (97.6 ??F)-36.9 ??C (98.5 ??F)] Heart Rate Heart Rate: 64 Heart Rate: [64] Blood Pressure BP: (Abnormal) 183/111 BP: (156-190)/(92-117) Respiratory Rate Resp: 16 Resp: [15-18] SpO2 SpO2: 97 % SpO2: [96 %-100 %] General: Appears stated age, WDWN, NAD HEENT: NC/AT, MMM Pulm: Normal respiratory effort CV: NRRR Abdomen: Soft, NT/ND. Extremities: BLE no edema, no obvious deformity ?? Neuro: MS: Level of consciousness: Alert Orientation: situation, follows simple and complex commands. No gaze deviation, naming intact. Slowed, but appropriate responses, seems unsure. CN: CN II, III - VF full to motion, PERRLA, suspect profound visual acuity deficit CN III, IV, - EOMI without nystagmus, no ptosis CN V - Facial sensation intact CN VII - Face symmetric CN VIII - Hearing intact to voice/finger rub CN IX, X, XII - symmetric palate elevation, tongue midline CN XI - SCM, trap strength intact Motor: Bulk: No focal atrophy noted Tone: Normal throughout Abnormal movements: None observed Fine motor: intact, no bradykinesia Strength: BUE / BLE 5/5 Sensory: Symmetrically intact to light touch throughout Reflexes: deferred Coordination: FNF with moderate bilateral intention tremor ?? Gait: Deferred DATA I/O last 3 completed shifts: In: 870 [P.O.:870] Out: 3450 [Urine:3450] Labs Recent Labs 04/12/22 0439 04/11/22 0120 04/10/22 0435 04/09/22 0050 04/08/22 0120 WBC 6.4 6.2 6.6 7.4 8.7 HGB 10.8* 10.5* 11.0* 10.7* 10.8* HCT 32.0* 31.4* 32.9* 31.0* 31.6* PLATELET 192 197 183 177 178 NEUTROABS 4.30 4.12 4.66 5.24 6.35* Recent Labs 04/12/22 0439 04/11/22 0120 04/10/22 0435 04/09/22 0050 04/08/22 0120 NA 135 138 140 142 141 K 4.1 4.1 4.1 3.9 3.2* CL 101 104 105 110* 110* CO2 25 25 24 23 21* BUN 24* 19 16 14 13 CREATININE 1.58* 1.62* 1.66* 1.62* 1.52* GLUCOSE 97 98 104 109 135 Recent Labs 04/12/22 04304/11/22 0120 04/10/22434 CALCIUM 9.0 9.1 8.6 MAGNESIUM 0.84 0.77 0.74 PHOS 3.6 4.1 3.4 Recent Labs 04/05/22 1535 AST 32 ALT 37 ALKPHOS 65 BILITOT 1.3 BILIDIR 0.6* Recent Labs 04/10/22 1554 04/10/22 0435 04/09/22 1155 TROPONINT 0.26* 0.32* 0.29* No results for input(s): PHART, LIL5RRT, PO2ART, OFH9FYK in the last 168 hours. No results for input(s): INR in the last 72 hours. Lipid Panel Lab Results Component Value Date CHLPL 120 04/11/2022 HDL 32 04/11/2022 CHOLHDL 3.8 04/11/2022 TRIG 117 04/11/2022 LDLCHOL 65 04/11/2022 Lab Results Component Value Date HA1C 4.8 04/07/2022 Micro - cultures/sensitivities UCx - None CSF - None Blood Cx - None Resp Cx - None Imaging/EKG NONE NEW ASSESSMENT & PLAN Denilson Go 56 y.o. male with PMHx HTN admitted with bilateral thalamic hemorrhage and PRES. We continue to adjust oral antihypertensives with collaboration of nephrology. Holding steady through weekend to allow current regimen to stabilize. Utilize PRNs as needed, continue to encourage PO intake. Cr slowly improving, also likely related to hypertensive emergency. Cardiology evaluated pt, signed off with no acute concerns. They recommend considering aspirin and statin for primary prevention when safe. No changes to current medical regimen today. Neurologically stable. He is pending inpt rehab when medically optimized, hopefully Thursday. #Neuro - PRES - neuro checks/VS Q4 - HOB > 30 deg - PT/OT eval and treat #CV - troponin leak- improving - strict SBP < 180, treat w/PRN labetalol or hydralizine - check lipid profile --> LDL 65 --> cards rec statin - lisinopril 20mg daily - amlodipine 10mg daily - chlorthalidone 25mg daily - labetalol 200mg TID #Pulm - - goal SpO2> 94% - IS at bedside - nebs PRN #GI - - follow up [employer] recs - Daily Healthy Menu Choices/Cardiac diet ([facility]-Diet) - maintain bowel reg - GI ppx: N/A #FEN/ - BPH - flomax 0.8mg daily - maintain euvolemia, I=O - Fluids: N/A - Goal Na 135-145, K > 4, Mg > 1 # Heme - - goal Hgb > 7, INR < 1.5, Platelets > 50k - DVT ppx: heparin 5,000U Q8, SCDs # Endo - - goal glucose 120-180 --> ISS Recent Labs 04/07/22 0430 HA1C 4.8 # ID - - for temp > 38C --> UA, CXR, blood cx, sputum cx - tylenol PRN # Other - Activity: as tolerated - Dispo: pending d/c to acute rehab - Last BM: Last Bowel Movement: 04/11/22 - code status: Attempt Cardiopulmonary Resuscitation - Inpatient Patient Lines/Drains/Airways Status Active Tubes/Lines/Drains Name Placement date Placement time Site Days Peripheral IV Line - Single Lumen 04/05/22 1200 basilic vein (medial side of arm), left 04/05/22 1200 no documentation 7 Peripheral IV Line - Single Lumen 04/05/22 1200 basilic vein (medial side of arm), right 18 gauge 04/05/22 1200 no documentation 7 Please page Vascular Neurology with any questions, #[phone] Sahra Juan, [facility] #[id number] [place] [address] Angela Anderson MD - 04/12/2022 6:00 AM EDT Images from the original note were not included. [facility] NEPHROLOGY/HYPERTENSION PROGRESS NOTE PATIENT: Denilson Go : 1965 None REASON FOR CONSULTATION: HTN INTERVAL HISTORY: BP remained elevated - 167/100 ROS: 4 point review of sytem was done, everything was negative except for what was mentioned above. INTAKE/OUTPUTS: Intake/Output Summary (Last 24 hours) at 04/12/2022 0600 Last data filed at 04/12/2022 0355 Gross per 24 hour Intake 730 ml Output 2280 ml Net -1550 ml MEDICATIONS: ??? chlorthalidone 25 mg Oral Daily ??? amLODIPine 10 mg Oral Daily ??? labetaloL 200 mg Oral TID ??? tamsulosin 0.8 mg Oral Daily ??? heparin (porcine) 5,000 Units Subcutaneous Q8H WILLIAM ??? lisinopriL 20 mg Oral Daily ??? senna-docusate 2 tablet Oral BID ??? polyethylene glycoL (MIRALAX) oral powder 17 g Oral Daily Vasoactive/Sedating Meds: VITALS: Last value Range last 24 hrs Temperature Temp: 36.4 ??C (97.6 ??F) Temp: [36.4 ??C (97.6 ??F)-37 ??C (98.6 ??F)] Heart Rate Heart Rate: 64 Heart Rate: [64-65] Blood Pressure BP: (!) 159/92 BP: (144-190)/(92-119) Respiratory Rate Resp: 15 Resp: [15] SpO2 SpO2: 96 % SpO2: [96 %-100 %] Ventilator: Mode Rate TV PEEP FiO2 Pplateau PHYSICAL EXAM: Patient is awake alert not in acute distress. Resting comfortably No jaundice oral mucosa moist Neck- supple trachea central. No masses on neck Chest- bilateral air entry present clear to auscultation no wheeze no crepitation.?? CVS-S1-S2 present, no murmur regurgitation gallops. Abdomen-nontender nondistended, bowel sounds present.??No abdominal bruits heard. Summers catheter present. Extremities-peripheral pulses present??+2 Pitting Edema Neuro-patient is awake alert, moving all 4 limbs, motor examination is grossly normal.??No??asterixis. STUDIES: LABS: CBC: Recent Labs 04/12/2243804/11/2211904/10/22434 WBC 6.4 6.2 6.6 HGB 10.8* 10.5* 11.0* PLATELET 192 197 183 Chemistry: Recent Labs 04/12/2243804/11/2211904/10/22434 NA 135 138 140 K 4.1 4.1 4.1 CL 101 104 105 CO2 25 25 24 BUN 24* 19 16 CREATININE 1.58* 1.62* 1.66* GLUCOSE 97 98 104 Recent Labs 04/12/2243804/11/2211904/10/22434 CALCIUM 9.0 9.1 8.6 MAGNESIUM 0.84 0.77 0.74 PHOS 3.6 4.1 3.4 ABG (Arterial Blood Gas) No results for input(s): PHART, OYC0LII, PO2ART, IXW7HSW, LACTATEVEN, KLX3VUZ, PFRATIOART2 in the last 168 hours. VBG (Venous Blood Gas) No results for input(s): PHVEN, YEQ1FIO, PO2VEN, XYR7FIU, LACTATEVEN in the last 168 hours. Mixed Venous Sat No results for input(s): D0SEZT0 in the last 168 hours. LFT's: Recent Labs 04/05/22 1535 BILITOT 1.3 BILIDIR 0.6* ALBUMIN 4.1 ALKPHOS 65 ALT 37 AST 32 Prot/Cre Ratio Date Value Ref Range Status 04/11/2022 0.2 ratio Final No results found for: TPROTEINPEP, ALBELECT Lab Results Component Value Date URXK14ARA 58.9 04/11/2022 Lab Results Component Value Date HA1C 4.8 04/07/2022 Lab Results Component Value Date PTH 47 04/10/2022 CALCIUM 9.0 04/12/2022 PHOS 3.6 04/12/2022 No results found for: 25OHVITD MICROBIOLOGY: IMAGING: ASSESSMENTS + IMPRESSIONS: -??Uncontrolled HTN with Recent Hx of Emergent HTN - Concern for Secondary Hypertension - Acute Kidney Injury likely 2/2 to HTN Injury - Acute Urinary Retention s/p Summers - PRES Syndrome ?? Hemodynamics:??. BP remained elevated - 167/100. Add Spironolactone 25 mg and administer PRN labetalol / hydralazine . Patient's is on Amlodipine 10mg, Chlorthalidone 25mg, Labetalol 200 TID, Lisinopril 20 daily, and Flomax 0.8mg daily. Secondary HTN workup has been unremarkable. Renin level pending . Given his spot aldosterone level was 4, it is unlikely his aldosterone/renin ratio exceeds 20. If renin is elevated inthe setting of an ANAT, he unlikely does not have a primary aldosteronism. Could entertain the thought of possible carrol's syndrome in his case. ?? MARY:??Cr = 1.58 today. Likely from HTN emergency . No electrolyte derangement Avoid nephrotoxic medications including NSAIDs and contrast. ?? Hemoglobin:??Hgb = 10.5. Goal between 10-11 preferrably. Iron replete. ?? Acid/Base:??Stable. Bicarb = 25 ?? BMD:??Calcium and phos stable. ?? PLAN: - F/U Aldosterone/renin ratio. - Add on 24 hour urine cortisol for carrol's investigation. - Continue Amlodipine, flomax, ANAT, BB, and Chlorthalidone. This is the most ideal regimen at this time. -- Sleep study upon discharge Thanks for letting us participate in the care of this patient. 04/12/2022 Associated attestation - Lou Stone MD - 04/13/2022 9:22 AM EDT The patient was seen and examined with the nephrology fellow. Please see the nephrology fellow's note from today for details. I have reviewed the fellow's note and agree with the exam, and assessment and plan. Recommend adding spironolactone 25mg daily to current regimen. Lou Stone MD Nephrology Pager: [phone] [place] Kevin Baker RN - 04/11/2022 9:54 PM EDT Pt received as a transfer , ALNO, BP remains elevated, Pt denies pains and discomfort , RA, breathing normal and unlabored, Pt oriented to RA and use of call lucio for assistance, Pt verbalized understanding. PVBS completed and recorded. Bed at lowest possible, bed alarm set. Urinal and call light within reach. Will continue with POC. [id number]: BP- remains elevated, PRN labetalol given which was effective to control BP within the target range. PT voiding normal with no difficulty, PVR=0 Maurisio Hernandez, RN - 04/11/2022 5:44 PM EDT OUTCOME EVALUATION NOTE: OUTCOME SUMMARY: Patient A/Ox4 during shift, neuro checks unchanged. BP managed with scheduled medications. Patient ambulated multiple times during shift, 1A w/ FWW. Summers d/c'd per nephrology and primary team, DTV 2129. LBM 04/11. PLAN MOVING FORWARD: Q4 vitals Q6 while awake neuros DTV 2129 Manage pain Jessi Zamora OT - 04/11/2022 10:22 AM EDT Occupational Therapy Treatment Note Treatment Number OT: 4 Patient profile: Denilson oG??is a 56 y.o.??male??with PMHx of HTN,??non- compliant with home meds (lisinopril 40mg, HCTZ) due to lack of access to PCP, presenting with bilateral thalamic hemorrhage. 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 Social History:??Pt lives with his sister & ANTONY in [place], [place] ? Home Set-Up:??Pt lives on basement level with one step to enter and ramp up to family room ? 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 Precautions/Special Considerations:??at risk to fall,??visual/perceptual deficits, SBP <160, DBP <100 ? Lines:?PIV, summers ? Activity Orders:??Up with assistance? Diet:??cardiac diet?? Interval History/24h Events: NAEO Subjective: I'm confused pt said when trying to recall the date Objective: Upon entering room, patient was standing with RN, preparing to ambulate. Patient agreeable to therapy session. Patient seen for therapeutic activities and demonstrated the following: Vital Signs: ??? Stable on RA Pain: ??? Denied pain Cognition: ??? Alert and oriented to self, place, month, and situation; cues for year and date ??? Misread clock (wrong by 1 hour), however aware that it was morning ?? Following 100% of one and two step commands appropriately; able to follow at least 3 two step commands without cues ?? Alert, cooperative, pleasant, mildly confused and occasionally frustrated by confusion ?? Delayed processing, benefits from increased time ?? Motivated to return to PLOF ?? Difficulty with L/R directional commands Vision & Perception: ??? Visual impairments wax and wane according to chart review; able to avoid objects while mobilizing ? ? Scanning R<>L to obtain items at the sink without cues ??? Mod cues for directions and positioning to line up with recliner chair prior to sitting Activities of Daily Living: ?? Completed rear stefanie-care with CGA for standing balance; performed multiple times to ensure cleanliness ?? Washed hands and combed hair with CGA for standing balance while standing at the sink Functional Mobility: ??? Ambulated 100' in the hallway with min assist, FWW, and gait belt; no LOB or bumping into objects; inc unsteadiness with turning but benefits from cues for slow pace; occasional cues for FWW management ??? Sit to stand from recliner chair with CGA ??? Stand to sit with CGA, cues for positioning prior to sitting in chair ??? Stood sink side with CGA for steadying Strength/ROM: ??? Reaching and crossing midline with BUEs to obtain items for grooming hygiene, benefits from cuesfor bilateral integration Endurance: fair; completed activity without a rest break and no c/o fatigue Education: Pt/family/caregiver education ongoing regarding: balance, compensatory cognitive strategies (utilizing external cues for orientation), out of bed activity, participation in self-care tasks, safety, protocol. Staff Communication: Patient status, treatment, and mobility recommendations discussed with nursing/other staff. Pt's sister and niece arrived towards end of session. ASSESSMENT: Pt has been seen for continuation of OT POC. Pt is progressing well towards functional goals. Improvement noted in visual impairments as he required less cues for scanning and spatial awareness. He continues to be mildly confused; educated on using external cues, such as reading the date on the white board. Performed standing ADLs with CGA for steadying. He is cooperative, pleasant, and motivated to return to his independent lifestyle. Recommend discharge to acute rehab once medically ready. Pt will benefit from ongoing therapeutic interventions to achieve pt's and therapy goals. Anticipated Discharge Disposition (OT): acute rehabilitation facility Equipment Recommendations: walker Activity Recommendations: ?? Promote normalcy by encouraging participation in common daily tasks & leisure activities by providing set up assist ?? Encourage bilateral UE integration ?? Give choices when possible to support feelings of autonomy ?? Keep glasses, hearing aides, cell phones, tablets, etc within reach ?? Facilitate a normal sleep-wake cycle ?? Provide brief, clear instruction from one source at a time ?? Reduce extraneous stimulation ?? Bathroom or commode for toileting needs vs. Using urinal &??bed polk ?? Utilize upright chair position using bed features or transfer to recliner chair as appropriate with??2A and walker ?? Encourage L<>R scanning ?? Goals:??To be achieved by 04/19/22. Ongoing Patient will complete??toilet transfer, hygiene, and hand washing with supervision and minimal verbal cues?? Patient will complete standing grooming tasks at sink with??set up, supervision, and minimal verbal cues Patient will ambulate functional household distances to bathroom & kitchenette with??supervisionand verbal cues?? Patient will don/doff UB & LB clothing sitting EOB or upright in chair with??set up A?? Patient will follow 3/3??two??step commands consistently Met 04/11 Patient will attend to functional task for 10 mins with minimal verbal cues ?? Therapy Frequency (OT): 3-5 times/wk 21 (x1 sch, [id number]) Jessi Zamora OTR/L Pager: [phone] Occupational Therapy Inpatient Rehabilitation Department Marc Norris MD - 04/11/2022 8:45 AM EDT Vascular Neurology Progress Note Patient name: Denilson Go Date of : 1965 PCP: None Attending: Luther Purdy MD 24 Hour Events: - Doing well this morning - Denies chest pain, shortness of breath, or new numbness/weakness/tingling - Last Bowel Movement: 04/11/22 - Voiding via summers. (plan to remove this afternoon) - No other acute concerns or complaints, asking when he can be discharged to rehab. Review of Systems: Negative except as documented in the HPI. Past Medical History: Past Medical History: Diagnosis Date ??? HTN (hypertension) Medications: Current Facility-Administered Medications Medication Dose Route Frequency Provider Last Rate Last Admin ??? chlorthalidone (Hygroten) tablet 25 mg 25 mg Oral Daily Marc Norris MD 25 mg at 04/10/22 1713 ??? amLODIPine (Norvasc) tablet 10 mg 10 mg Oral Daily Marc Norris MD 10 mg at 04/10/22806 ??? labetaloL (Normodyne) tablet 200 mg 200 mg Oral TID Marc Norris MD 200 mg at 04/10/222010 ??? tamsulosin (Flomax) capsule 0.8 mg 0.8 mg Oral Daily Marc Norris MD 0.8 mg at 04/10/22806 ??? heparin (porcine) (5,000 units/1 mL) subcutaneous injection 5,000 Units 5,000 Units [id number] [facility] Marc Norris MD 5,000 Units at 04/11/22 0528 ??? lisinopriL (Zestril) tablet 20 mg 20 mg Oral Daily Marc Norris MD 20 mg at 04/10/22 08 ??? sodium chloride 0.9 % (flush) (BD PosiFlush Normal Saline 0.9) flush 5-20 mL 5-20 mL IntravenousQ1 Min PRN Marc Norris MD ??? labetaloL (Normodyne) (5 mg/mL) injection solution 10-20 mg 10-20 mg Intravenous Q15 Min PRN Marc Norris MD 10 mg at 04/10/22 1250 ??? senna-docusate (Pericolace) 8.6-50 mg per tablet 2 tablet 2 tablet Oral BID Marc Norris MD 2 tablet at 04/10/222010 ??? polyethylene glycoL (Miralax) packet 17 g 17 g Oral Daily Marc Norris MD 17 g at 04/10/22 0810 ??? bisacodyL (Dulcolax) suppository 10 mg 10 mg Rectal Daily PRN Marc Norris MD ??? acetaminophen (Tylenol) tablet 975 mg 975 mg Oral Q6H PRN Marc Norris MD 975 mg at 04/11/22 0733 Or ??? acetaminophen (Tylenol) (32.02 mg/mL) oral liquid 975 mg 975 mg Per G Tube Q6H PRN Marc Norris MD Or ??? acetaminophen (Tylenol) suppository 975 mg 975 mg Rectal Q6H PRN Marc Norris MD No Known Allergies Family History Problem Relation Age of Onset ??? Aneurysm Mother ??? Aneurysm Father Social History Socioeconomic History ??? Marital status: Unknown Spouse name: Not on file ??? Number of children: Not on file ??? Years of education: Not on file ??? Highest education level: Not on file Occupational History ??? Not on file Tobacco Use ??? Smoking status: Never Smoker ??? Smokeless tobacco: Current User Types: Chew Substance and Sexual Activity ??? Alcohol use: Yes Alcohol/week: 12.0 standard drinks Types: 12 Cans of beer per week ??? Drug use: No ??? Sexual activity: Not on file Other Topics Concern ??? Not on file Social History Narrative ??? Not on file Social Determinants of Health Financial Resource Strain: Not on file Food Insecurity: Not on file Transportation Needs: Not on file Physical Activity: Not on file Housing Stability: Not on file Physical Exam: Vitals: Last value Range last 24 hrs Temperature Temp: 36.8 ??C (98.24 ??F) Temp: [36.4 ??C (97.5 ??F)-37.2 ??C (99 ??F)] Heart Rate Heart Rate: 62 Heart Rate: -- Blood Pressure BP: (!) 144/92 BP: (144-187)/(92-111) Respiratory Rate Resp: 16 Resp: [16-18] SpO2 SpO2: 98 % SpO2: [96 %-99 %] I/O: 04/10 0701 - 04/11 0700 In: 55 [P.O.:40; I.V.:15] Out: 1615 [Urine:1615] General: Appears stated age, WDWN, NAD HEENT: NC/AT, MMM Pulm: Normal respiratory effort CV: NRRR Abdomen: Soft, NT/ND. Extremities: BLE no edema, no obvious deformity Neuro: MS: Level of consciousness: Alert Orientation: situation, follows simple and complex commands. No gaze deviation, naming intact. Slowed, but appropriate responses, seems unsure. CN: CN II, III - VF full to motion, PERRLA, suspect profound visual acuity deficit, on bedside snellen was ~20/40 or better on our bedside exam, although much worse for ophthalmology the day prior. CN III, IV, - EOMI without nystagmus, no ptosis CN V - Facial sensation intact CN VII - Face symmetric CN VIII - Hearing intact to voice/finger rub CN IX, X, XII - symmetric palate elevation, tongue midline CN XI - SCM, trap strength intact Motor: Bulk: No focal atrophy noted Tone: Normal throughout Abnormal movements: None observed Fine motor: intact, no bradykinesia Strength: BUE / BLE 5/5 Sensory: Symmetrically intact to light touch throughout Reflexes: 2+/4 Throughout Clonus: Not assessed this morning Coordination: FNF with moderate bilateral intention tremor Gait: Deferred Labs: Recent Results (from the past 24 hour(s)) Uric acid Result Value Ref Range Uric Acid 6.0 3.5 - 8.5 mg/dL PTH Result Value Ref Range PTH 47 15 - 65 pg/mL Iron and TIBC Result Value Ref Range Iron 76 45 - 160 mcg/dL TIBC 177 (L) 250 - 450 mcg/dL Iron Saturation 43 20 - 50 % Lavender Tube HOLD Result Value Ref Range Lavender Hold Sample in lab. Troponin Result Value Ref Range Troponin-T 0.26 (H) 0.00 - 0.00 ng/mL Magnesium Result Value Ref Range Magnesium 0.77 0.69 - 1.07 mmol/L Phosphorus Result Value Ref Range Phosphorus 4.1 2.5 - 4.5 mg/dL Basic Metabolic Panel (non-fasting) Result Value Ref Range Glucose Lvl 98 65 - 199 mg/dL BUN 19 10 - 20 mg/dL Creatinine 1.62 (H) 0.80 - 1.50 mg/dL Sodium 138 135 - 145 mmol/L Potassium 4.1 3.5 - 5.0 mmol/L Chloride 104 98 - 107 mmol/L CO2 25 22 - 31 mmol/L Anion Gap 9 5 - 15 mmol/L Calcium 9.1 8.5 - 10.5 mg/dL Estimated GFR 49 (L) >=60 mL/min/1.73 m?? Hemogram Result Value Ref Range WBC 6.2 4.0 - 9.5 x10(3)/mcL RBC 3.50 (L) 4.58 - 5.54 x10(6)/mcL Hemoglobin 10.5 (L) 13.7 - 16.5 g/dL Hematocrit 31.4 (L) 40.5 - 48.5 % MCV 89.7 82.9 - 93.1 fL MCH 30.0 27.5 - 32.1 pg MCHC 33.4 32.0 - 35.7 g/dL Platelets 197 145 - 357 x10(3)/mcL RDWSD 43.7 36.0 - 45.0 fL RDWCV 13.3 11.4 - 13.8 % MPV 10.0 7.6 - 12.9 fL nRBC % Auto 0.0 % nRBC Abs Auto 0.000 0.000 - 0.000 x10(3)/mcL Differential, Automated Result Value Ref Range Neutrophils % 66.2 % Neutr Abs (ANC) 4.12 1.70 - 6.10 x10(3)/mcL Lymphocytes % 20.6 % Lymphocytes Abs 1.3 0.9 - 3.2 x10(3)/mcL Monocytes % 7.6 % Monocyte Abs 0.5 0.3 - 0.9 x10(3)/mcL Eosinophils % 4.5 % Eosinophils Abs 0.3 0.0 - 0.4 x10(3)/mcL Basophils % 0.6 % Basophils Abs 0.0 0.0 - 0.1 x10(3)/mcL Immature Gran % 0.50 % [place] Gran Abs 0.03 0.00 - 0.04 x10(3)/mcL Lipid Panel (Reflex Direct LDL) Result Value Ref Range Chol, Total 120 mg/dL Triglycerides 117 mg/dL HDL 32 mg/dL LDL Cholesterol 65 mg/dL Chol/HDL Ratio 3.8 ratio Lipid Interpretation See Note Diagnostic Tests and Imaging: MRI Brain wwo Contrast (Generic) Final Result 1. Extensive leukoaraiosis. 2. Extensive, largely nonenhancing, signal abnormality within the bilateral thalami. There is no decreased diffusion. Differential diagnosis includes sequela of old ischemia, vasogenic edema related to the sites of hemorrhage, and, less commonly, a toxic or metabolic disorder. 3. Innumerable small foci of intracerebral hemorrhage in a pattern consistent with long-standing hypertension. An additional component related to amyloid angiopathy cannot be excluded. 4. Numerous small foci of acute or subacute infarction scattered in the bilateral cerebral hemispheres Thank you for letting us participate in the care of this patient. If you are a health care provider and have any questions regarding this report, please contact the number below. For patients who have questions please contact the health animal care provider that requested your imaging first. Electronically signed by: Bret Calvert MD, [facility] ([phone]), at 04/06/2022 12:03 PM MRI Angiogram Head wo Contrast (Generic) Final Result No site of more than mild intracranial stenosis. Thank you for letting us participate in the care of this patient. If you are a health care provider and have any questions regarding this report, please contact the number below. For patients who have questions please contact the health animal care provider that requested your imaging first. Electronically signed by: Bret Calvert MD, [facility] ([phone]), at 04/06/2022 12:[address] Head wo Contrast (Generic) Final Result Areas of hypoattenuation within the bilateral thalami most likely representing ischemic infarction. Differential diagnosis includes vasogenic edema about sites of hemorrhage but the areas of hypoattenuation are large relative to the sites of hemorrhage, the hypoattenuation is sharply marginated, and there is little mass effect. The sites of high attenuation material within each of these areas, likely hemorrhage, are unchanged. Extensive inflammatory changes of the paranasal sinuses. Thank you for letting us participate in the care of this patient. If you are a health care provider and have any questions regarding this report, please contact the number below. For patients who have questions please contact the health animal care provider that requested your imaging first. Electronically signed by: Bret Calvert MD, [facility] ([phone]), at 04/05/2022 6:55 PM Assessment/Plan: Denilson Go is a 56 y.o. male with PMHx of HTN, non-compliant with home meds (lisinopril 40mg,HCTZ) due to lack of access to PCP, presenting with bilateral thalamic hemorrhage. 04/11/2022: No acute issues, continued BP stability on current regimen and amlodipine should begin tohave more of an effect in the coming days. Will continue regimen, discontinue summers, and work towards IPR placement. No major changes or concerns from cardiology consult and nephro believes Cr changes l ikely secondary to profound HTN, will continue to monitor closely. # Bilateral thalami intraparenchymal hemorrhages with bilateral vasogenic cerebral edema, and diffuse petechial hemorrhages, Suspect underlying severe PRES # Essential Hypertension - Continue floor status - NC/VS Q4H - MRI with innumerable small foci of cerebral hemorrhage, bilateral thalamic IPH, symmetric posterior white matter hyperintensity, extending into BG and brainstem. - MRA without significant stenosis of intracerebral vessels - NOTE : No neck vascular imaging performed yet. -SBP goal <180 -Continue Labetalol to 200 mg PO TID - TTE completed, EF 60%, LVH noted, Consider amyloid. No major valvular disease - Continue DVT ppx with SQH given Cr Consider transition to enoxaparin with improved -renal duplex - End organ damage, unable to obtain arterial duplex studies - Opthalmology consulted Evidence of hypertensive retinopathy Contact close to discharge for follow up plans - Nephrology consulted Urine Studies ordered and resulted, OK to initiate diuretic if needed Amlodipine 10 mg PO daily started 04/09 Continue Labetalol 200 mg PO TID Continue Lisinopril 20 mg PO daily Chlorthalidone 25 mg PO daily #Acute Kidney Injury, stable - Caution with continuing lisinopril - Continue to monitor Cr, electrolytes - Renal duplex without evidence of MELVIN # Troponinemia, Active, Suspect Type 2 NSTEMI - No active chest pain, ? New T wave inversion in lateral leads - Cardiology Consulted Trended to peak and decrease, discontinued 04/11 # Decreased Visual Acuity in the Setting of Profound Hypertension and End-Organ Damage # Hypertensive Retionpathy - Ophthalmology consult Decreased VA, no obvious optic nerve edema, findings most consistent with hypertensive retionpathy - Blood pressure control as described above # Acute Urinary Rentention - Continue Tamsulosin 0.8 mg PO Daily - Remove summers 04/11 # Routine/PPX - PT/OT/NEEDLE GRADER - Activity: up with assistance - VTE ppx: SCDs - RBOs: Senna/docusate, bisocodyl prn - Diet: Daily Healthy Menu Choices/Cardiac diet ([facility]-Diet) - Dispo: Pending course - Code: Attempt Cardiopulmonary Resuscitation - Inpatient Marc Norris MD Neurology, PGY-2 Vascular Neurology Service #[id number] 04/11/2022 Associated attestation - Aleja Lozoya MD - 04/12/2022 11:41 AM EDT Neurology Attending Attestation I evaluated the patient with the Stroke Team during bedside rounds. I have reviewed the medical records and patient's history, as well as the resident???s history and examination findings and I agree with the details as written. My neurologic examination confirms the resident???s findings. We formulated the assessment and plan after a detailed discussion, as documented. Aleja Lozoya MD Vascular Neurology Adiel Mendosa MD - 04/11/2022 6:40 AM EDT Images from the original note were not included. [facility] NEPHROLOGY/HYPERTENSION PROGRESS NOTE PATIENT: Denilson oG : 1965 None REASON FOR CONSULTATION: HTN INTERVAL HISTORY: Patient yesterday started on chlorthalidone 25mg. Was evaluated by cardiology in which impressions were consistent with demand ischemia to explain troponinemia. Patient received a one time dose of labetalol PRN for his BP. Overnight, he received tylenol to assist with some headache. Today, patient's BP is better compared to previous days. BP = 140s - 160s this AM. Otherwise doing fine. Pertinent labs reviewed demonstrating a negative uric acid, adequate iron studies, and a PTH of 47. ROS: 4 point review of sytem was done, everything was negative except for what was mentioned above. INTAKE/OUTPUTS: Intake/Output Summary (Last 24 hours) at 04/11/2022 0640 Last data filed at 04/11/2022 0400 Gross per 24 hour Intake 55 ml Output 1615 ml Net -1560 ml MEDICATIONS: ??? chlorthalidone 25 mg Oral Daily ??? amLODIPine 10 mg Oral Daily ??? labetaloL 200 mg Oral TID ??? tamsulosin 0.8 mg Oral Daily ??? heparin (porcine) 5,000 Units Subcutaneous Q8H WILLIAM ??? lisinopriL 20 mg Oral Daily ??? senna-docusate 2 tablet Oral BID ??? polyethylene glycoL (MIRALAX) oral powder 17 g Oral Daily Vasoactive/Sedating Meds: VITALS: Last value Range last 24 hrs Temperature Temp: 36.7 ??C (98.1 ??F) Temp: [36.4 ??C (97.5 ??F)-37.3 ??C (99.1 ??F)] Heart Rate Heart Rate: 62 Heart Rate: -- Blood Pressure BP: (!) 160/97 BP: (147-194)/(92-120) Respiratory Rate Resp: 16 Resp: [16-18] SpO2 SpO2: 97 % SpO2: [96 %-100 %] Ventilator: Mode Rate TV PEEP FiO2 Pplateau PHYSICAL EXAM: Patient is awake alert not in acute distress. Resting comfortably No jaundice oral mucosa moist Neck- supple trachea central. No masses on neck Chest- bilateral air entry present clear to auscultation no wheeze no crepitation.?? CVS-S1-S2 present, no murmur regurgitation gallops. Abdomen-nontender nondistended, bowel sounds present.??No abdominal bruits heard. Summers catheter present. Extremities-peripheral pulses present??+2 Pitting Edema Neuro-patient is awake alert, moving all 4 limbs, motor examination is grossly normal.??No??asterixis. STUDIES: LABS: CBC: Recent Labs 04/11/22 0120 04/10/225 04/09/22 0050 WBC 6.2 6.6 7.4 HGB 10.5* 11.0* 10.7* PLATELET 197 183 177 Chemistry: Recent Labs 04/11/22 0120 04/10/22 0435 04/09/22 0050 NA 138 140 142 K 4.1 4.1 3.9 CL 104 105 110* CO2 25 24 23 BUN 19 16 14 CREATININE 1.62* 1.66* 1.62* GLUCOSE 98 104 109 Recent Labs 04/11/22 0120 04/10/225 04/09/22 0050 CALCIUM 9.1 8.6 8.6 MAGNESIUM 0.77 0.74 0.73 PHOS 4.1 3.4 3.4 ABG (Arterial Blood Gas) No results for input(s): PHART, KMO4YSC, PO2ART, FLV8EFF, LACTATEVEN, GMW1SWC, PFRATIOART2 in the last 168 hours. VBG (Venous Blood Gas) No results for input(s): PHVEN, ZHN4GWY, PO2VEN, CQM3HCF, LACTATEVEN in the last 168 hours. Mixed Venous Sat No results for input(s): Z1JLTH6 in the last 168 hours. LFT's: Recent Labs 04/05/22 1535 BILITOT 1.3 BILIDIR 0.6* ALBUMIN 4.1 ALKPHOS 65 ALT 37 AST 32 No results found for: UPROTCREAT No results found for: TPROTEINPEP, ALBELECT No results found for: MICROALBUR, [id number] Lab Results Component Value Date HA1C 4.8 04/07/2022 Lab Results Component Value Date PTH 47 04/10/2022 CALCIUM 9.1 04/11/2022 PHOS 4.1 04/11/2022 No results found for: 25OHVITD MICROBIOLOGY: IMAGING: ASSESSMENTS + IMPRESSIONS: -??Uncontrolled HTN with Recent Hx of Emergent HTN - Concern for Secondary Hypertension - Acute Kidney Injury likely 2/2 to HTN Injury - Acute Urinary Retention s/p Summers - PRES Syndrome ?? Hemodynamics:??Patient's BP improved to systolics of 140-160 this AM. At this time, patient's current regimen is composed of Amlodipine 10mg, Chlorthalidone 25mg, Labetalol 200 TID, Lisinopril 20 daily, and Flomax 0.8mg daily. We will expect a more pronounced BP effect once amlodipine has effectively reached therapeutic effect in next coming days. As of now, remaining secondary HTN workup has been unremarkable. Renin and Aldosterone levels are still pending; however. Given his spot aldosterone levelwas 4, it is unlikely his aldosterone/renin ratio exceeds 20. If renin is elevated in the setting ofan ANAT, he unlikely does not have a primary aldosteronism. Could entertain the thought of possible carrol's syndrome in his case. ?? MARY:??Cr = 1.62 today. Likely from HTN. Continue to monitor with appropriate HTN management. Can attempt to remove summers catheter today. Will need bladder US if patient believes he is retaining. ?? Hemoglobin:??Hgb = 10.5. Goal between 10-11 preferrably. Iron replete. ?? Acid/Base:??Stable. Bicarb = 25 ?? BMD:??Calcium and phos stable. ?? PLAN: - F/U Aldosterone/renin ratio. - Add on 24 hour urine cortisol for carrol's investigation. - Continue Amlodipine, flomax, ANAT, BB, and Chlorthalidone. This is the most ideal regimen at this time. - Please remove summers catheter today. Bladder scan if retaining. Low threshold for placing summers again. - Sleep study upon discharge Avoid nephrotoxic medications including NSAIDs and contrast. Thanks for letting us participate in the care of this patient. 04/11/2022 Adiel Mendosa M.D., M.P.H., M.H.A. PGY-IV Nephrology-Hypertension Fellow Page # [phone] [facility] [address] 2nd floor, Triage Register Nurse [address] [place] [address] Associated attestation - Lan Kemp MD - 04/11/2022 7:16 PM EDT I saw and discussed the patient with the fellow and agree with the assessment and plan in his note. I was able to meet patient's sister today who helps him with his care management and explained to herhow we will have to trend and monitor blood pressure over time. She endorses understanding. His regimen is now rationalized with long-acting thiazide, RAAS inhibition as well as dihydropyridine calciumchannel alirio. It will take several days for these medicines to reach steady state and would monitor his trend through the weekend. Patient will need to engage with primary care and would strongly recommend sleep study to rule out obstructive sleep apnea. Eileen Prakash, PT - 04/10/2022 3:47 PM EDT Physical Therapy Note Treatment Number PT: 4 Patient profile: Denilson Go??is a 56 y.o.??male??with PMHx of HTN,??non- compliant with home meds (lisinopril 40mg, HCTZ) due to lack of access to PCP, presenting with bilateral thalamic hemorrhage. ?? Transferred to the [facility] after achieving adequate blood pressure control. ??He remains somewhat confused with cognitive difficulties, likely in the setting of innumerable small infarcts seen on MRI. ??He also may be having cognitive challenges due to hypertensive encephalopathy, which may improve somewhat with continued blood pressure control. ??We will continue his nicardipine drip with a goal BP of 160/90 as we eventually transition to oral antihypertensives. ??Will obtain renal duplex, TSH, UDS, aldosterone level to assess for secondary causes of hypertension. ??Although, his hypertension is in the setting of noncompliance with his home antihypertensives and this is likely the etiology of his cerebral findings. He also has evidence of??other??organ damage consistent with hypertensive injury including proteinuria, elevated creatinine, poor visual acuity.?Will consider ophthalmology consult early this week to better assess for retinopathy, which he likely has. Interval History: per Neuro note 04/10: - No acute issues overnight - Off cardene - Trop ~0.3 this AM, slight increase from prior with persistent t wave inversion, will plan to consult cardiology. Importantly, no chest pain or pressure, no left arm or jaw numbness or weakness/tingling - No other acute concerns or complaints Social History: Pt lives with his sister & ANTONY in [place], [place] ? Home Set-Up:??Pt lives on basement level with one step to enter and ramp up to family room ? 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 DME:??None?? ? Falls:??None?? Baseline Mobility: fully indep, amb without ad Equipment at home: none Fall history: denies Precautions/Special Considerations: fall risk, SBP <160, dBP<100 Mobility and Positioning Recommendations: ?? Pt amb short distances w RW and A x 1. Encourage chair follow for safety. ?? Please encourage up to chair for meal times as able. Subjective: Sometimes I get a little confused Objective: Patient seen for physical therapy and demonstrated the following: Pain: denies Vital Signs: BP 192/108 after activity, RN aware and plans to medicate. Deferred further activity after this Cognition/Vision: alert, pleasant, cooperative, decreased recall and impaired insight Bed Mobility: NA; received in bedside recliner Transfers: Sit to Stand: CGA with FWW, VCs for hand placement with dec recall Stand to Sit: CGA, dec ecc control, VCs for hand placement Gait: Distance: 120' Device used: rolling walker Level of assist: CGA-min assist x1 Gait mechanics: demo's dec gait speed, narrow JENNY with intermittent scissoring, moderate trunk sway.Increased unsteadiness with direction changes/turning. Max cues for sequencing and safety. Stairs: NA Five Times Sit to Stand Test Time to complete 5 stands: 25.21s Comments: utilized FWW. Results indicate increased risk for falls Normal Values: Greater than 13.6 seconds indicates increased disability and morbidity. - ([place]o, 2000) The optimal cutoff time for performing the FTSS test in predicting recurrent falls is 15 seconds. -(Magdaleno et al., 2008) References: Ham Echavarria, Asia Trammell et al. (2000). Lower extremity function and subsequent disability: consistency across studies, predictive models, and value of gait speed alone compared with the short physical performance battery. J Gerontol A Biol Sci Med Sci 55(4): M221-31. Magdaleno Cabrera, Anneliese Trent, Дмитрий P, Leander R, John P, Nas G et al. Five times sit to stand test is a predictor of recurrent falls in healthy community?living subjects aged 65 and older. J Am Geriatr Soc 2008; 56(8):1575?1577 Balance: Sitting Static: good Sitting Dynamic: fair + Standing Static: fair with FWW Standing Dynamic / Gait: fair with FWW Education: Patient educated on transfers, gait, use of assistive device, balance, safety, role of therapy and d/c planning. He will benefit from ongoing reinforcement. Pt left in bedside recliner with all needs and call lucio in reach following visit. Assessment: Denilson Go was seen today for physical therapy treatment session for continuationof POC. Session today focused on progressive gait. He demo's improved mechanics, however remains unsteady and requires frequent cues for sequencing and safety. Pt did experience BP control issues during session today, therefore further mobility/activity was deferred in lieu of medication administration. Despite this, pt remains a pleasant and motivated participant w good potential for ongoing gains, therapy does continue to recommend intensive inpt rehab setting at time of d/c. Pt will benefit from ongoing therapeutic interventions to achieve therapy goals. Discharge Recommendations: Based on the current findings, Anticipated Discharge Disposition (PT): acute rehabilitation facilitywhen medically ready for hospital discharge. Consult Recommendations: No other consults recommended at this time. Equipment needs: Anticipated Equipment Needs at Discharge (PT): to be determined Physical Therapy Goals: To be achieved by 04/14/22: ONGOING ?? 1. Pt. to demonstrate knowledge of safety limitations and precautions and will appropriately requestassistance for functional activities and to mobilize. 2. Pt. to demonstrate understanding of appropriate HEP. 3. Pt. to perform bed mobility with modified independence. 4. Pt. to perform sit to stand transfers with modified independence using a front wheeled walker 5. Pt. to ambulate 150 feet with modified independence using a a front wheeled walker. 6. Pt. to ambulate up/down 1 step/stairs using one rail with supervision. 7. Family or caregiver to demonstrate understanding of therapeutic interventions to support the careof the patient. 8. Pt will tolerate progression towards upright with stable vital signs. Plan: Therapy Frequency (PT): 3-5 times/wk for therapy interventions as outlined in initial evaluation. Patient agrees with plan as stated. Time IN / OUT: 3968-4112 Total Minutes, Physical Therapy: 15 (tef1) Eileen Prakash, PT Pager: [phone] Physical Therapy Inpatient Rehabilitation Department Luther Purdy MD - 04/10/2022 8:15 AM EDT Vascular Neurology Progress Note Patient name: Denilson Go Date of : 1965 PCP: None Attending: Luther Purdy MD 24 Hour Events: - No acute issues overnight - Off cardene - Trop ~0.3 this AM, slight increase from prior with persistent t wave inversion, will plan to consult cardiology. Importantly, no chest pain or pressure, no left arm or jaw numbness or weakness/tingling - No other acute concerns or complaints Review of Systems: Negative except as documented in the HPI. Past Medical History: Past Medical History: Diagnosis Date ??? HTN (hypertension) Medications: Current Facility-Administered Medications Medication Dose Route Frequency Provider Last Rate Last Admin ??? amLODIPine (Norvasc) tablet 10 mg 10 mg Oral Daily Marc Norris MD 10 mg at 04/10/22 0807 ??? labetaloL (Normodyne) tablet 200 mg 200 mg Oral TID Marc Norris MD 200 mg at 04/10/22 1413 ??? tamsulosin (Flomax) capsule 0.8 mg 0.8 mg Oral Daily Marc Norris MD 0.8 mg at 04/10/22 0807 ??? heparin (porcine) (5,000 units/1 mL) subcutaneous injection 5,000 Units 5,000 Units [id number] [facility] Marc Norris MD 5,000 Units at 04/10/22 1408 ??? lisinopriL (Zestril) tablet 20 mg 20 mg Oral Daily Marc Norris MD 20 mg at 04/10/22 0807 ??? sodium chloride 0.9 % (flush) (BD PosiFlush Normal Saline 0.9) flush 5-20 mL 5-20 mL IntravenousQ1 Min PRN Marc Norris MD ??? labetaloL (Normodyne) (5 mg/mL) injection solution 10-20 mg 10-20 mg Intravenous Q15 Min PRN Marc Norris MD 10 mg at 04/10/22 1250 ??? senna-docusate (Pericolace) 8.6-50 mg per tablet 2 tablet 2 tablet Oral BID Marc Norris MD 2 tablet at 04/10/22 0807 ??? polyethylene glycoL (Miralax) packet 17 g 17 g Oral Daily Marc Norris MD 17 g at 04/10/22 0810 ??? bisacodyL (Dulcolax) suppository 10 mg 10 mg Rectal Daily PRN Marc Norris MD ??? acetaminophen (Tylenol) tablet 975 mg 975 mg Oral Q6H PRN Marc Norris MD 975 mg at 04/09/22 1253 Or ??? acetaminophen (Tylenol) (32.02 mg/mL) oral liquid 975 mg 975 mg Per G Tube Q6H PRN Marc Norris MD Or ??? acetaminophen (Tylenol) suppository 975 mg 975 mg Rectal Q6H PRN Marc Norris MD No Known Allergies Family History Problem Relation Age of Onset ??? Aneurysm Mother ??? Aneurysm Father Social History Socioeconomic History ??? Marital status: Unknown Spouse name: Not on file ??? Number of children: Not on file ??? Years of education: Not on file ??? Highest education level: Not on file Occupational History ??? Not on file Tobacco Use ??? Smoking status: Never Smoker ??? Smokeless tobacco: Current User Types: Chew Substance and Sexual Activity ??? Alcohol use: Yes Alcohol/week: 12.0 standard drinks Types: 12 Cans of beer per week ??? Drug use: No ??? Sexual activity: Not on file Other Topics Concern ??? Not on file Social History Narrative ??? Not on file Social Determinants of Health Financial Resource Strain: Not on file Food Insecurity: Not on file Transportation Needs: Not on file Physical Activity: Not on file Housing Stability: Not on file Physical Exam: Vitals: Last value Range last 24 hrs Temperature Temp: 36.4 ??C (97.5 ??F) Temp: [36.4 ??C (97.5 ??F)-37.3 ??C (99.1 ??F)] Heart Rate Heart Rate: 62 Heart Rate: [55-66] Blood Pressure BP: (!) 187/111 BP: (141-194)/(70-120) Respiratory Rate Resp: 22 Resp: [14-22] SpO2 SpO2: 99 % SpO2: [95 %-100 %] I/O: 04/09 0701 - 04/10 0700 In: 845 [P.O.:840; I.V.:5] Out: 1934 [Urine:1934] General: Appears stated age, WDWN, NAD HEENT: NC/AT, MMM Pulm: Normal respiratory effort CV: NRRR Abdomen: Soft, NT/ND. Extremities: BLE no edema, no obvious deformity Neuro: MS: Level of consciousness: Alert Orientation: situation, follows simple and complex commands. No gaze deviation, naming intact. Cognition impaired, slowed responses, seems unsure. CN: CN II, III - VF full to motion, PERRLA, suspect profound visual acuity deficit, but did quantifywith bedside Snellen chart. CN III, IV, - EOMI without nystagmus, no ptosis CN V - Facial sensation intact CN VII - Face symmetric CN VIII - Hearing intact to voice/finger rub CN IX, X, XII - symmetric palate elevation, tongue midline CN XI - SCM, trap strength intact Motor: Bulk: No focal atrophy noted Tone: Normal throughout Abnormal movements: None observed Fine motor: intact, no bradykinesia Strength: BUE / BLE 5/5 Sensory: Symmetrically intact to light touch throughout confuses Left vs Right Reflexes: 2+/4 Throughout Clonus: Not assessed this morning Coordination: FNF with moderate bilateral intention tremor Gait: Deferred Labs: Recent Results (from the past 24 hour(s)) Magnesium Result Value Ref Range Magnesium 0.74 0.69 - 1.07 mmol/L Phosphorus Result Value Ref Range Phosphorus 3.4 2.5 - 4.5 mg/dL Basic Metabolic Panel (non-fasting) Result Value Ref Range Glucose Lvl 104 65 - 199 mg/dL BUN 16 10 - 20 mg/dL Creatinine 1.66 (H) 0.80 - 1.50 mg/dL Sodium 140 135 - 145 mmol/L Potassium 4.1 3.5 - 5.0 mmol/L Chloride 105 98 - 107 mmol/L CO2 24 22 - 31 mmol/L Anion Gap 11 5 - 15 mmol/L Calcium 8.6 8.5 - 10.5 mg/dL Estimated GFR 47 (L) >=60 mL/min/1.73 m?? Troponin Result Value Ref Range Troponin-T 0.32 (H) 0.00 - 0.00 ng/mL Hemogram Result Value Ref Range WBC 6.6 4.0 - 9.5 x10(3)/mcL RBC 3.65 (L) 4.58 - 5.54 x10(6)/mcL Hemoglobin 11.0 (L) 13.7 - 16.5 g/dL Hematocrit 32.9 (L) 40.5 - 48.5 % MCV 90.1 82.9 - 93.1 fL MCH 30.1 27.5 - 32.1 pg MCHC 33.4 32.0 - 35.7 g/dL Platelets 183 145 - 357 x10(3)/mcL RDWSD 44.6 36.0 - 45.0 fL RDWCV 13.5 11.4 - 13.8 % MPV 10.0 7.6 - 12.9 fL nRBC % Auto 0.0 % nRBC Abs Auto 0.000 0.000 - 0.000 x10(3)/mcL Differential, Automated Result Value Ref Range Neutrophils % 70.7 % Neutr Abs (ANC) 4.66 1.70 - 6.10 x10(3)/mcL Lymphocytes % 15.8 % Lymphocytes Abs 1.0 0.9 - 3.2 x10(3)/mcL Monocytes % 8.5 % Monocyte Abs 0.6 0.3 - 0.9 x10(3)/mcL Eosinophils % 4.1 % Eosinophils Abs 0.3 0.0 - 0.4 x10(3)/mcL Basophils % 0.6 % Basophils Abs 0.0 0.0 - 0.1 x10(3)/mcL Immature Gran % 0.30 % [place] Gran Abs 0.02 0.00 - 0.04 x10(3)/mcL Uric acid Result Value Ref Range Uric Acid 6.0 3.5 - 8.5 mg/dL PTH Result Value Ref Range PTH 47 15 - 65 pg/mL Iron and TIBC Result Value Ref Range Iron 76 45 - 160 mcg/dL TIBC 177 (L) 250 - 450 mcg/dL Iron Saturation 43 20 - 50 % Lavender Tube HOLD Result Value Ref Range Lavender Hold Sample in lab. Diagnostic Tests and Imaging: MRI Brain wwo Contrast (Generic) Final Result 1. Extensive leukoaraiosis. 2. Extensive, largely nonenhancing, signal abnormality within the bilateral thalami. There is no decreased diffusion. Differential diagnosis includes sequela of old ischemia, vasogenic edema related to the sites of hemorrhage, and, less commonly, a toxic or metabolic disorder. 3. Innumerable small foci of intracerebral hemorrhage in a pattern consistent with long-standing hypertension. An additional component related to amyloid angiopathy cannot be excluded. 4. Numerous small foci of acute or subacute infarction scattered in the bilateral cerebral hemispheres Thank you for letting us participate in the care of this patient. If you are a health care provider and have any questions regarding this report, please contact the number below. For patients who have questions please contact the health animal care provider that requested your imaging first. Electronically signed by: Bret Calvert MD, [facility] ([phone]), at 04/06/2022 12:03 PM MRI Angiogram Head wo Contrast (Generic) Final Result No site of more than mild intracranial stenosis. Thank you for letting us participate in the care of this patient. If you are a health care provider and have any questions regarding this report, please contact the number below. For patients who have questions please contact the health animal care provider that requested your imaging first. Electronically signed by: Bret Calvert MD, [facility] ([phone]), at 04/06/2022 12:[address] Head wo Contrast (Generic) Final Result Areas of hypoattenuation within the bilateral thalami most likely representing ischemic infarction. Differential diagnosis includes vasogenic edema about sites of hemorrhage but the areas of hypoattenuation are large relative to the sites of hemorrhage, the hypoattenuation is sharply marginated, and there is little mass effect. The sites of high attenuation material within each of these areas, likely hemorrhage, are unchanged. Extensive inflammatory changes of the paranasal sinuses. Thank you for letting us participate in the care of this patient. If you are a health care provider and have any questions regarding this report, please contact the number below. For patients who have questions please contact the health animal care provider that requested your imaging first. Electronically signed by: Bret Calvert MD [facility] ([phone]), at 04/05/2022 6:55 PM Assessment/Plan: Denilson Go is a 56 y.o. male with PMHx of HTN, non-compliant with home meds (lisinopril 40mg,HCTZ) due to lack of access to PCP, presenting with bilateral thalamic hemorrhage. 04/10/2022: Doing well clinically. BP stabilizing. Will consult cardiology today given EKG changes aswell as elevated troponin, although fundamentally suspect Type 2 NSTEMI. Continuing hypertension management per nephrology recommendations. # Bilateral thalami intraparenchymal hemorrhages with bilateral vasogenic cerebral edema, and diffuse petechial hemorrhages, Suspect underlying severe PRES # Essential Hypertension - Continue step-down status - NC/VS Q4H / Q2H - MRI with innumerable small foci of cerebral hemorrhage, bilateral thalamic IPH, symmetric posterior white matter hyperintensity, extending into BG and brainstem. - MRA without significant stenosis of intracerebral vessels - NOTE : No neck vascular imaging performed yet. -SBP goal <160, dBP goal <100 - continue nicard gtt, PRNs available, start with labetalol - lisinopril 20mg qd - Continue Labetalol to 200 mg PO TID - TTE completed, EF 60%, LVH noted, Consider amyloid. No major valvular disease - Begin DVT ppx with SQH given Cr Consider transition to enoxaparin with improved -f/u UDS, random aldosterone, TSH/T4free -renal duplex - End organ damage, unable to obtain arterial duplex studies - Opthalmology consulted Evidence of hypertensive retinopathy Contact close to discharge for follow up plans - Nephrology consulted Urine Studies ordered and resulted, OK to initiate diuretic if needed Amlodipine 10 mg PO daily started 04/09 Continue Labetalol 200 mg PO TID Continue Lisinopril 20 mg PO daily #Acute Kidney Injury, stable - Caution with continuing lisinopril - Slow reduction in SBP to avoid renal hypoperfusion - Continue to monitor Cr, electrolytes - Renal duplex without MELVIN # Troponinemia, Active, Suspect Type 2 NSTEMI - No active chest pain, ? New T wave inversion in lateral leads - Cardiology Consulted Recommendations pending # Decreased Visual Acuity in the Setting of Profound Hypertension and End-Organ Damage # Hypertensive Retionpathy - Ophthalmology consult Decreased VA, no obvious optic nerve edema, findings most consistent with hypertensive retionpathy - Blood pressure control as described above # Acute Urinary Rentention - Continue Tamsulosin 0.8 mg PO Daily - Remove summers 04/10 in AM # Routine/PPX - PT/OT/NEEDLE GRADER - Activity: up with assistance - VTE ppx: SCDs - RBOs: Senna/docusate, bisocodyl prn - Diet: Daily Healthy Menu Choices/Cardiac diet ([facility]-Diet) - Dispo: Pending course - Code: Attempt Cardiopulmonary Resuscitation - Inpatient Marc Norris MD Neurology, PGY-2 Vascular Neurology Service #[id number] 04/10/2022 Neurology Attending Attestation I evaluated the patient with the Stroke Team during bedside rounds. I have reviewed the medical records and patient's history, as well as the resident???s history and examination findings and I agree with the details as written. My neurologic examination confirms the resident???s findings. We formulated the assessment and plan after a detailed discussion, as documented. Adiel Mendosa MD - 04/10/2022 7:25 AM EDT Images from the original note were not included. [facility] NEPHROLOGY/HYPERTENSION PROGRESS NOTE PATIENT: Denilson Go : 1965 None REASON FOR CONSULTATION: HTN INTERVAL HISTORY: Yesterday, patient started on Amlodipine 10mg for HTN. Labs obtained for HTN workup. Overnight, the patient did well. No PRNs given for his BP Today, patient remains well. His BP is elevated in high 170s systolics this AM. Decision made to move up his antihypertensives to earlier this AM. Patient expresses fear of summers catheter being removed. ROS: 4 point review of sytem was done, everything was negative except for what was mentioned above. INTAKE/OUTPUTS: Intake/Output Summary (Last 24 hours) at 04/10/2022 0725 Last data filed at 04/10/2022 0600 Gross per 24 hour Intake 845 ml Output 1935 ml Net -1090 ml MEDICATIONS: ??? amLODIPine 10 mg Oral Daily ??? labetaloL 200 mg Oral TID ??? tamsulosin 0.8 mg Oral Daily ??? heparin (porcine) 5,000 Units Subcutaneous Q8H WILLIAM ??? lisinopriL 20 mg Oral Daily ??? senna-docusate 2 tablet Oral BID ??? polyethylene glycoL (MIRALAX) oral powder 17 g Oral Daily Vasoactive/Sedating Meds: VITALS: Last value Range last 24 hrs Temperature Temp: 37.2 ??C (98.96 ??F) Temp: [36.6 ??C (97.88 ??F)-37.2 ??C (98.96 ??F)] Heart Rate Heart Rate: 62 Heart Rate: [55-80] Blood Pressure BP: (!) 161/103 BP: (134-197)/(70-111) Respiratory Rate Resp: 22 Resp: [14-26] SpO2 SpO2: 95 % SpO2: [95 %-99 %] Ventilator: Mode Rate TV PEEP FiO2 Pplateau PHYSICAL EXAM: Patient is awake alert not in acute distress No jaundice oral mucosa moist Neck- supple trachea central. No masses on neck Chest- bilateral air entry present clear to auscultation no wheeze no crepitation. CVS-S1-S2 present, no murmur regurgitation gallops. Abdomen-nontender nondistended, bowel sounds present. No abdominal bruits heard. Summers catheter present. Extremities-peripheral pulses present +1 Pitting Edema Neuro-patient is awake alert, moving all 4 limbs, motor examination is grossly normal. No asterixis. STUDIES: LABS: CBC: Recent Labs 04/10/2243404/09/22 0050 04/08/22 0120 WBC 6.6 7.4 8.7 HGB 11.0* 10.7* 10.8* PLATELET 183 177 178 Chemistry: Recent Labs 04/10/2243404/09/22 0050 04/08/22 0120 NA 140 142 141 K 4.1 3.9 3.2* CL 105 110* 110* CO2 24 23 21* BUN 16 14 13 CREATININE 1.66* 1.62* 1.52* GLUCOSE 104 109 135 Recent Labs 04/10/2243404/09/22 0050 04/08/22 0120 CALCIUM 8.6 8.6 8.8 MAGNESIUM 0.74 0.73 0.72 PHOS 3.4 3.4 3.0 ABG (Arterial Blood Gas) No results for input(s): PHART, EWN6YFI, PO2ART, TII3HAW, LACTATEVEN, HLE4UAY, PFRATIOART2 in the last 168 hours. VBG (Venous Blood Gas) No results for input(s): PHVEN, XCZ2RKV, PO2VEN, AHC9QYW, LACTATEVEN in the last 168 hours. Mixed Venous Sat No results for input(s): R3HRFP2 in the last 168 hours. LFT's: Recent Labs 04/05/22 1535 BILITOT 1.3 BILIDIR 0.6* ALBUMIN 4.1 ALKPHOS 65 ALT 37 AST 32 No results found for: UPROTCREAT No results found for: TPROTEINPEP, ALBELECT No results found for: MICROALBUR, [id number] Lab Results Component Value Date HA1C 4.8 04/07/2022 Lab Results Component Value Date CALCIUM 8.6 04/10/2022 PHOS 3.4 04/10/2022 No results found for: 25OHVITD MICROBIOLOGY: IMAGING: - No recent imaging. ASSESSMENTS + IMPRESSIONS: - Uncontrolled HTN with Recent Hx of Emergent HTN - Concern for Secondary Hypertension - Acute Kidney Injury likely 2/2 to HTN Injury - Acute Urinary Retention s/p Summers - PRES Syndrome ?? Hemodynamics: Patient's HTN has been unexpectedly elevated overnight. Amlodipine 10mg was initiated,but the effects of amlodipine will not be present for several days. At this time, it is reasonable to initiate more guideline directed first- line agents to control BP. Would recommend adding a diureticsuch as chlorthalidone to assess BP response after obtaining renin / aldosterone labs and other HTN based labs. [place] regimen entails a ANAT/diuretic/Amlodipine/Flomax +/- a BB. Will need to further assess his HTN with added regimen and assess his K+ trend. mineralocortoicoid excess still unable to rule out at this time. ?? MARY: Cr = 1.66 from 1.62. Likely from HTN. Continue to monitor with appropriate HTN management. Has some urinary retention. May benefit from keeping summers for longer. ?? Hemoglobin: Hgb = 11.0. At goal ?? Acid/Base: Stable. Bicarb = 24 ?? BMD: Calcium and phos stable. ?? PLAN: - F/U labs obtained from HTN workup. - Can initiate low dose chlorthalidone in addition to current BB/ANAT/Flomax/Amlodipine regimen. - Recommend sleep study upon discharge. - Would hold off on pheo workup with plasma metanephrines. Unlikely etiology of hypertension yet. Avoid nephrotoxic medications including NSAIDs and contrast. Thanks for letting us participate in the care of this patient. 04/10/2022 Adiel Mendosa M.D., M.P.H., M.H.A. PGY-IV Nephrology-Hypertension Fellow Page # [phone] 2nd floor, Triage Register Nurse [address] [place] [address] Associated attestation - Lan Kemp MD - 04/10/2022 4:49 PM EDT I saw and discussed the patient with the fellow and I agree with the assessment plan in his note. Wewill continue to add rational first-line antihypertensives in stepwise fashion to build regimen. We will have to watch potassium in the setting of thiazide diuretic. Patient counseled that adherence toregimen will be very important given how severe her blood pressure was on admission. He reports understanding Luther Purdy MD - 04/09/2022 7:47 AM EDT Vascular Neurology Progress Note Patient name: Denilson Go Date of : 1965 PCP: None Attending: Luther Purdy MD 24 Hour Events: - No acute issues overnight - Off cardene, but SBP ~180s - Denies headache, chest pain, or shortness of breath this morning - Trop 0.29 in AM from 0.06 several days ago - Creatinine slightly elevated to ~1.6 from 1.5 Review of Systems: Negative except as documented in the HPI. Past Medical History: Past Medical History: Diagnosis Date ??? HTN (hypertension) Medications: Current Facility-Administered Medications Medication Dose Route Frequency Provider Last Rate Last Admin ??? labetaloL (Normodyne) tablet 200 mg 200 mg Oral TID Marc Norris MD 200 mg at 04/08/222042 ??? tamsulosin (Flomax) capsule 0.8 mg 0.8 mg Oral Daily Marcel Delgadillo MD 0.8 mg at 04/08/22 0810 ??? heparin (porcine) (5,000 units/1 mL) subcutaneous injection 5,000 Units 5,000 Units [id number] [facility] Drake Sahra C, [employer] 5,000 Units at 04/09/22 0609 ??? nicotine (Nicoderm CQ) 14 mg/24 hr patch 14 mg 1 patch Transdermal Daily Maurisio Amaya, DO And ??? nicotine (NICODERM CQ) 14 mg/24 hr patch Patch Verification 1 patch Transdermal BID Maurisio Amaya, DO And ??? nicotine (NICODERM CQ) 14 mg/24 hr patch Patch Removal 1 patch Transdermal Daily Maurisio Amaya, DO ??? lisinopriL (Zestril) tablet 20 mg 20 mg Oral Daily Maurisio Amaya, DO 20 mg at 04/08/22 0810 ??? sodium chloride 0.9 % (flush) (BD PosiFlush Normal Saline 0.9) flush 5-20 mL 5-20 mL IntravenousQ1 Min PRN Maurisio Amaya, DO ??? labetaloL (Normodyne) (5 mg/mL) injection solution 10-20 mg 10-20 mg Intravenous Q15 Min PRN Maurisio Amaya, DO 10 mg at 04/09/22 0606 ??? enalaprilat (Vasotec) (1.25 mg/mL) injection 1.25 mg 1.25 mg Intravenous Q6H PRN Maurisio Amaya, DO 1.25 mg at 04/07/22 1135 ??? niCARdipine (Cardene) (0.2 mg/mL) in sodium chloride 200 mL infusion 0-15 mg/hr Intravenous Continuous Maurisio Amaya, DO 0 mL/hr at 04/08/22 1500 0 mg/hr at 04/08/22 1500 ??? senna-docusate (Pericolace) 8.6-50 mg per tablet 2 tablet 2 tablet Oral BID Maurisio Amaya, DO2 tablet at 04/08/222042 ??? polyethylene glycoL (Miralax) packet 17 g 17 g Oral Daily Maurisio Amaya, DO 17 g at 04/08/22 0810 ??? magnesium hydroxide (Milk of Magnesia) (240 mg/mL) oral liquid 10 mL 10 mL Oral Nightly PRN Maurisio Amaya, DO ??? bisacodyL (Dulcolax) suppository 10 mg 10 mg Rectal Daily PRN Maurisio Amaya, DO ??? acetaminophen (Tylenol) tablet 975 mg 975 mg Oral Q6H PRN Maurisio Amaya, DO 975 mg at 04/08/22 0810 Or ??? acetaminophen (Tylenol) (32.02 mg/mL) oral liquid 975 mg 975 mg Per G Tube Q6H PRN Maurisio Amaya, DO Or ??? acetaminophen (Tylenol) suppository 975 mg 975 mg Rectal Q6H PRN Maurisio Amaya, DO ??? hydrALAZINE (Apresoline) (20 mg/mL) injection 10 mg 10 mg Intravenous Q4H PRN Maurisio Amaya, DO 10 mg at 04/07/22 1010 No Known Allergies Family History Problem Relation Age of Onset ??? Aneurysm Mother ??? Aneurysm Father Social History Socioeconomic History ??? Marital status: Unknown Spouse name: Not on file ??? Number of children: Not on file ??? Years of education: Not on file ??? Highest education level: Not on file Occupational History ??? Not on file Tobacco Use ??? Smoking status: Never Smoker ??? Smokeless tobacco: Current User Types: Chew Substance and Sexual Activity ??? Alcohol use: Yes Alcohol/week: 12.0 standard drinks Types: 12 Cans of beer per week ??? Drug use: No ??? Sexual activity: Not on file Other Topics Concern ??? Not on file Social History Narrative ??? Not on file Social Determinants of Health Financial Resource Strain: Not on file Food Insecurity: Not on file Transportation Needs: Not on file Physical Activity: Not on file Housing Stability: Not on file Physical Exam: Vitals: Last value Range last 24 hrs Temperature Temp: 37 ??C (98.6 ??F) Temp: [36.5 ??C (97.7 ??F)-37.1 ??C (98.78 ??F)] Heart Rate Heart Rate: 57 Heart Rate: [57-88] Blood Pressure BP: (!) 166/100 BP: (127-173)/(69-116) Respiratory Rate Resp: 16 Resp: [14-26] SpO2 SpO2: 98 % SpO2: [92 %-100 %] I/O: 04/08 0701 - 04/09 0700 In: 1378.8 [P.O.:890; I.V.:488.8] Out: 2375 [Urine:2375] General: Appears stated age, WDWN, NAD HEENT: NC/AT, MMM Pulm: Normal respiratory effort CV: NRRR Abdomen: Soft, NT/ND. Extremities: BLE no edema, no obvious deformity Neuro: MS: Level of consciousness: Alert Orientation: situation, follows simple and complex commands. No gaze deviation, naming intact. Cognition impaired, slowed responses, seems unsure. CN: CN II, III - VF full to motion, PERRLA, suspect profound visual acuity deficit, but did quantifywith bedside Snellen chart. CN III, IV, - EOMI without nystagmus, no ptosis CN V - Facial sensation intact CN VII - Face symmetric CN VIII - Hearing intact to voice/finger rub CN IX, X, XII - symmetric palate elevation, tongue midline CN XI - SCM, trap strength intact Motor: Bulk: No focal atrophy noted Tone: Normal throughout Abnormal movements: None observed Fine motor: intact, no bradykinesia Strength: BUE / BLE 5/5 Sensory: Symmetrically intact to light touch throughout confuses Left vs Right Reflexes: 2+/4 Throughout Clonus: Not assessed this morning Coordination: FNF with moderate bilateral intention tremor Gait: Deferred Labs: Recent Results (from the past 24 hour(s)) Magnesium Result Value Ref Range Magnesium 0.73 0.69 - 1.07 mmol/L Phosphorus Result Value Ref Range Phosphorus 3.4 2.5 - 4.5 mg/dL Basic Metabolic Panel (non-fasting) Result Value Ref Range Glucose Lvl 109 65 - 199 mg/dL BUN 14 10 - 20 mg/dL Creatinine 1.62 (H) 0.80 - 1.50 mg/dL Sodium 142 135 - 145 mmol/L Potassium 3.9 3.5 - 5.0 mmol/L Chloride 110 (H) 98 - 107 mmol/L CO2 23 22 - 31 mmol/L Anion Gap 9 5 - 15 mmol/L Calcium 8.6 8.5 - 10.5 mg/dL Estimated GFR 49 (L) >=60 mL/min/1.73 m?? Troponin Result Value Ref Range Troponin-T 0.29 (H) 0.00 - 0.00 ng/mL Hemogram Result Value Ref Range WBC 7.4 4.0 - 9.5 x10(3)/mcL RBC 3.48 (L) 4.58 - 5.54 x10(6)/mcL Hemoglobin 10.7 (L) 13.7 - 16.5 g/dL Hematocrit 31.0 (L) 40.5 - 48.5 % MCV 89.1 82.9 - 93.1 fL MCH 30.7 27.5 - 32.1 pg MCHC 34.5 32.0 - 35.7 g/dL Platelets 177 145 - 357 x10(3)/mcL RDWSD 44.5 36.0 - 45.0 fL RDWCV 13.5 11.4 - 13.8 % MPV 10.2 7.6 - 12.9 fL nRBC % Auto 0.0 % nRBC Abs Auto 0.000 0.000 - 0.000 x10(3)/mcL Differential, Automated Result Value Ref Range Neutrophils % 70.6 % Neutr Abs (ANC) 5.24 1.70 - 6.10 x10(3)/mcL Lymphocytes % 17.5 % Lymphocytes Abs 1.3 0.9 - 3.2 x10(3)/mcL Monocytes % 7.4 % Monocyte Abs 0.6 0.3 - 0.9 x10(3)/mcL Eosinophils % 3.5 % Eosinophils Abs 0.3 0.0 - 0.4 x10(3)/mcL Basophils % 0.5 % Basophils Abs 0.0 0.0 - 0.1 x10(3)/mcL Immature Gran % 0.50 % [place] Gran Abs 0.04 0.00 - 0.04 x10(3)/mcL Diagnostic Tests and Imaging: MRI Brain wwo Contrast (Generic) Final Result 1. Extensive leukoaraiosis. 2. Extensive, largely nonenhancing, signal abnormality within the bilateral thalami. There is no decreased diffusion. Differential diagnosis includes sequela of old ischemia, vasogenic edema related to the sites of hemorrhage, and, less commonly, a toxic or metabolic disorder. 3. Innumerable small foci of intracerebral hemorrhage in a pattern consistent with long-standing hypertension. An additional component related to amyloid angiopathy cannot be excluded. 4. Numerous small foci of acute or subacute infarction scattered in the bilateral cerebral hemispheres Thank you for letting us participate in the care of this patient. If you are a health care provider and have any questions regarding this report, please contact the number below. For patients who have questions please contact the health animal care provider that requested your imaging first. Electronically signed by: Bret Calvert MD, [facility] ([phone]), at 04/06/2022 12:03 PM MRI Angiogram Head wo Contrast (Generic) Final Result No site of more than mild intracranial stenosis. Thank you for letting us participate in the care of this patient. If you are a health care provider and have any questions regarding this report, please contact the number below. For patients who have questions please contact the health animal care provider that requested your imaging first. Electronically signed by: Bret Calvert MD, [facility] ([phone]), at 04/06/2022 12:[address] Head wo Contrast (Generic) Final Result Areas of hypoattenuation within the bilateral thalami most likely representing ischemic infarction. Differential diagnosis includes vasogenic edema about sites of hemorrhage but the areas of hypoattenuation are large relative to the sites of hemorrhage, the hypoattenuation is sharply marginated, and there is little mass effect. The sites of high attenuation material within each of these areas, likely hemorrhage, are unchanged. Extensive inflammatory changes of the paranasal sinuses. Thank you for letting us participate in the care of this patient. If you are a health care provider and have any questions regarding this report, please contact the number below. For patients who have questions please contact the health animal care provider that requested your imaging first. Electronically signed by: Bret Calvert MD, [facility] ([phone]), at 04/05/2022 6:55 PM Assessment/Plan: Denilson Go is a 56 y.o. male with PMHx of HTN, non-compliant with home meds (lisinopril 40mg,HCTZ) due to lack of access to PCP, presenting with bilateral thalamic hemorrhage. 04/09/2022: No acute issues overnight. Continue PO BP control, will discuss case with nephro/htn today for further advice regarding best pathway forward. Repeat troponin given elevation to 0.29 this morning. No active chest pain. Some T wave inversion. Working towards medical readiness for discharge # Bilateral thalami intraparenchymal hemorrhages with bilateral vasogenic cerebral edema, and diffuse petechial hemorrhages, Suspect underlying severe PRES # Essential Hypertension - Continue step-down status - NC/VS Q4H / Q2H - MRI with innumerable small foci of cerebral hemorrhage, bilateral thalamic IPH, symmetric posterior white matter hyperintensity, extending into BG and brainstem. - MRA without significant stenosis of intracerebral vessels - NOTE : No neck vascular imaging performed yet. -SBP goal <160, dBP goal <100 - continue nicard gtt, PRNs available, start with labetalol - lisinopril 20mg qd - Increase Labetalol to 200 mg PO TID - TTE pending - troponin peak at 0.29 Repeat Trop q6 hours. - Begin DVT ppx with SQH given Cr Consider transition to enoxaparin with improved -f/u UDS, random aldosterone, TSH/T4free -renal duplex - End organ damage, unable to obtain arterial duplex studies -Opthalmology consulted, awaiting recommendations #Acute Kidney Injury, stable - Caution with continuing lisinopril - Slow reduction in SBP to avoid renal hypoperfusion - Continue to monitor Cr, electrolytes - Renal duplex without MELVIN # Troponinemia - Troponin elevated this morning, continue trending q6 hours. Will recheck tomorrow AM - No active chest pain, continue to monitor # Decreased Visual Acuity in the Setting of Profound Hypertension and End-Organ Damage # Hypertensive Retionpathy - Ophthalmology consult Decreased VA, no obvious optic nerve edema, findings most consistent with hypertensive retionpathy - Blood pressure control as described above # Acute Urinary Rentention - Continue Tamsulosin 0.8 mg PO Daily - Remove summers 04/10 in AM # Routine/PPX - PT/OT/NEEDLE GRADER - Activity: up with assistance - VTE ppx: SCDs - RBOs: Senna/docusate, bisocodyl prn - Diet: Daily Healthy Menu Choices/Cardiac diet ([facility]-Diet) - Dispo: Pending course - Code: Attempt Cardiopulmonary Resuscitation - Inpatient Marc Norris MD Neurology, PGY-2 Vascular Neurology Service #[id number] 04/09/2022 Neurology Attending Attestation I evaluated the patient with the Stroke Team during bedside rounds. I have reviewed the medical records and patient's history, as well as the resident???s history and examination findings and I agree with the details as written. My neurologic examination confirms the resident???s findings. We formulated the assessment and plan after a detailed discussion, as documented. Balta Fontenot - 04/09/2022 6:56 AM EDTSniya: CYRIL Neurology Daily Progress Note - 04/09/2022 Patient Name: Denilson Go Admit Date: 04/05/2022 Attending: Luther Purdy MD ID: 54 yo m PMH uncontrolled HTN (not on meds) presented to from OSH with bilateral Thalamic Hemorrhages and PRESS syndrome. Subjective/24h Events - doing well saw sister yesterday - NOT using NICARD, did require 1x IV hydralazine - CONT Increased 200 mg labetalol given K replacement , lovenox - net negative 900 now with summers - reports vision is stable - Patient denies GARCIA NVD, weakness. - Says he remains confused - Updated sister yesterday - No other complaints at this time. Per Optho His exam did demonstrate a peripapillary hemorrhage and optic nerve head swelling OD No evidence of vitreous hemorrhage, retinal detachment, intraocular bleeding was noted. - Tortuous AV nicking - Aggressive antihypertensive Tx - Dietary evaluation - Retina Specialist follow up out patient PER OT - acute rehab facility - Would benefit from opthalmology evaluation PER PT - acute rehab ?? Per Nursing - no note Medications: Scheduled Meds: ??? labetaloL 200 mg Oral TID ??? tamsulosin 0.8 mg Oral Daily ??? heparin (porcine) 5,000 Units Subcutaneous Q8H WILLIAM ??? nicotine 1 patch Transdermal Daily And ??? Patch Verification 1 patch Transdermal BID And ??? nicotine 1 patch Transdermal Daily ??? lisinopriL 20 mg Oral Daily ??? senna-docusate 2 tablet Oral BID ??? polyethylene glycoL (MIRALAX) oral powder 17 g Oral Daily Continuous Infusions: ??? niCARdipine 0 mg/hr (04/08/22 1500) PRN Meds:.sodium chloride 0.9 % (flush), labetaloL, enalaprilat, magnesium hydroxide, bisacodyL, acetaminophen OR acetaminophen OR acetaminophen, hydrALAZINE Physical Exam: Last value Range last 24 hrs Temperature Temp: 37 ??C (98.6 ??F) Temp: [36.6 ??C (97.9 ??F)-37.1 ??C (98.78 ??F)] Heart Rate Heart Rate: 66 Heart Rate: [57-71] Blood Pressure BP: (!) 197/111 BP: (127-197)/(77-116) Respiratory Rate Resp: 18 Resp: [14-26] SpO2 SpO2: 96 % SpO2: [92 %-100 %] Tele unremark HR in 60s Intake/Output Summary (Last 24 hours) at 04/09/2022 1041 Last data filed at 04/09/2022 0558 Gross per 24 hour Intake 845 ml Output 1900 ml Net -1055 ml S/p Summers placed with 800 output Patient Vitals for the past 168 hrs: Weight 04/09/22 0600 119 kg (262 lb 5.6 oz) 04/08/22 0600 119 kg (262 lb 5.6 oz) 04/06/22 0615 114.2 kg (251 lb 12.3 oz) Labs: Recent Labs 04/09/22 0050 04/08/22 0120 04/07/22 0430 04/06/22 0415 WBC 7.4 8.7 9.8* 12.6* HGB 10.7* 10.8* 12.1* 11.9* HCT 31.0* 31.6* 34.8* 32.8* PLATELET 177 178 206 178 MCV 89.1 86.8 86.8 85.0 Resolving leukocytosis Stable normocytic anemia Recent Labs 04/09/22 0050 04/08/22 0120 04/07/22 0430 04/06/22 1800 04/06/22 1010 04/06/22 0415 NA 142 141 141 -- -- 139 CL 110* 110* 109* -- -- 102 CO2 23 21* 21* -- -- 23 K 3.9 3.2* 3.1* 3.1* 3.2* 2.9* MAGNESIUM 0.73 0.72 0.76 -- -- 0.79 PHOS 3.4 3.0 3.2 -- -- 3.7 CALCIUM 8.6 8.8 8.7 -- -- 8.8 BUN 14 13 17 -- -- 28* CREATININE 1.62* 1.52* 1.68* -- -- 1.99* LFTs Recent Labs 04/05/22 1535 PROT 7.3 ALBUMIN 4.1 AST 32 ALT 37 ALKPHOS 65 BILITOT 1.3 BILIDIR 0.6* Coags Recent Labs 04/05/22 1535 INR 1.2 PT 13.2* PTT 31 Cardiac Enzymes Recent Labs 04/09/22 0050 04/06/22 1010 04/06/22 0415 04/05/22 2239 04/05/22 1535 TROPONINT 0.29* 0.06* 0.06* 0.04* 0.02* Endocrine Recent Labs 04/06/22 1435 04/05/22 1535 TSH 3.14 2.20 A1C - pending Recent Labs 04/05/22205104/05/22 1548 POCGLU 144 138 Drug Screen Latest Reference Range & Units 04/07/22 01:18 CAITLIN Conf Requested No (C) U Barbiturates Screen None Detected None Detected U Benzodiazepines Screen None Detected None Detected U Cocaine Screen None Detected None Detected U Methadone Metabolites Screen None Detected None Detected U Opiate Screen None Detected None Detected U Cannabinoid Screen None Detected None Detected U Oxycodone Screen None Detected None Detected U Buprenorphine Screen None Detected None Detected U Fentanyl Screen None Detected None Detected U Tricyclics Screen None Detected None Detected U Ethanol Screen None Detected None Detected U Amphetamines Screen None Detected None Detected U Adulterants Screen None Detected None Detected (C): Corrected Micro Microbiology Results (Last 30 days) No results found for the last 720 hours. Imaging: Results for orders placed or performed during the hospital encounter of 04/05/22 MRI Brain wwo Contrast (Generic) (Exam End: 04/06/2022 9:42 AM) Impression 1. Extensive leukoaraiosis. 2. Extensive, largely nonenhancing, signal abnormality within the bilateral thalami. There is no decreased diffusion. Differential diagnosis includes sequela of old ischemia, vasogenic edema related to the sites of hemorrhage, and, less commonly, a toxic or metabolic disorder. 3. Innumerable small foci of intracerebral hemorrhage in a pattern consistent with long-standing hypertension. An additional component related to amyloid angiopathy cannot be excluded. 4. Numerous small foci of acute or subacute infarction scattered in the bilateral cerebral hemispheres Thank you for letting us participate in the care of this patient. If you are a health care provider and have any questions regarding this report, please contact the number below. For patients who have questions please contact the health animal care provider that requested your imaging first. Electronically signed by: Bret Calvert MD, [facility] ([phone]), at 04/06/2022 12:[address] Head wo Contrast (Generic) (Exam End: 04/05/2022 6:39 PM) Impression Areas of hypoattenuation within the bilateral thalami most likely representing ischemic infarction. Differential diagnosis includes vasogenic edema about sites of hemorrhage but the areas of hypoattenuation are large relative to the sites of hemorrhage, the hypoattenuation is sharply marginated, and there is little mass effect. The sites of high attenuation material within each of these areas, likely hemorrhage, are unchanged. Extensive inflammatory changes of the paranasal sinuses. Thank you for letting us participate in the care of this patient. If you are a health care provider and have any questions regarding this report, please contact the number below. For patients who have questions please contact the health animal care provider that requested your imaging first. Electronically signed by: Bret Calvert MD, [facility] ([phone]), at 04/05/2022 6:55 PM MRI Angiogram Head wo Contrast (Generic) (Exam End: 04/06/2022 9:42 AM) Impression No site of more than mild intracranial stenosis. Thank you for letting us participate in the care of this patient. If you are a health care provider and have any questions regarding this report, please contact the number below. For patients who have questions please contact the health animal care provider that requested your imaging first. Renal US 04/06 Interpretation: ?? Right: Doppler waveforms are consistent with abnormally elevated parenchymal resistance. Main renal artery not visualized due to abdominal gas, cannot exclude a stenosis. ?? Left: Doppler waveforms are consistent with abnormally elevated parenchymal resistance. Main renal artery not visualized due to abdominal gas, cannot exclude a stenosis. ?? Comparison: ??No previous study in our vascular lab database for comparison. ?? TTE 04/07 Interpretation Summary The left ventricular size is normal. Wall thickness is severely increased. LV function is normal with LVEF of 60% by Peters's biplane and no wall motion abnormalities. Right ventricular size and function are normal. PASP 26 mm Hg (assuming RA pressure 3 mm Hg). The left atrium is moderately dilated. The right atrium is mildly dilated. There is no hemodynamically significant valvular disease present. No prior echo for comparison. Severely increased wall thickness - this could be due to long-standing hypertension, but cannot rule out other conditions, such as amyloid. Consider cardiac MRI if clinically appropriate. Summary - EF 60% LVH, no PFO, no valvular disease, no pfo with Physical Exam General: alert, in NAD oriented to person place time, unable to state monika back/ PADDY HEENT: Sclera anicteric, conjunctiva nl, EOMI, no lesions noted. NC/AT Lung: Normal WOB Abd: ND. Skin: No suspicious rashes or lesions Neuro Exam: MS: Awake, alert, oriented to person, place, month and year, Not situation No dysarthria, language fluent, cooperative with neuro CN: R pupil mildly dilated, EOMI, visual smith full, able to read menu Facial sensation intact to light touch, No facial asymmetry Hearing intact to voice Palate elevates symmetrically, tongue protrudes midline SCM and trap strength intact Motor: Normal bulk and tone. 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 male with PMHx of HTN, non-compliant with home meds (lisinopril 40mg,HCTZ) due to lack of access to PCP, presenting with bilateral thalamic hemorrhage. 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 ?? Stable elevated blood pressure . Continues to have confusion and difficulty tracking. Suspect Hypertensive emergency/Pres Syndrome. Current UDS (NEG)/TSH (3.14)/ CLIFFORD unclear as to secondary cause of HTN. Still pending aldosterone. Ophthalmology recommends antihypertensives Blood pressure no longer Nicard dependent. Will transition to better PO regimen. ?? 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 #Diffuse infarcts of bilateral hemispheres - NC/VS Q2H - MRI with innumerable small foci of cerebral hemorrhage and abnormal signal in b/l thalami - MRA without significant stenosis of intracerebral vessels - Consider Carotid Duplex/MRA/CTA Neck - TTE 04/07 Normal - OPTHO - Will f/u retina outpr - CONT Lovenox DVT PPX #HTN - SBP goal < 180 -SBP goal dBP goal <100 - DISContinue nicard gtt, PRNs available, start with labetalol - CONT lisinopril 20mg qd - CONT Labetalol 200 mg TID - CONSULT NEPHRO - TSH 3.14 WNL - A1c Pending - UDS Negative - troponin peak at 0,06, d/c trend - TTE LVH, CONSIDER MRI - OUtPT CARD - PENDING random aldosterone -Renal duplex US 04/06 cannot r/o stenosis #Cardiac Troponin 0.29 up trended up from admission . Remains asymptomatic. Will Check EKG. - Q 6 hr Trops - 12 lead EKG #MARY Downtrending 1.99 to 1.68 to 1.52 to 1.62. IN 2017 baseline of 1.1. Will CTM. Suspect in setting of elevated BP. BUN:CR <20 suspect intra/post renal. - Daily BMP - Continue tamsulosin 0.8 - Summers in place monitor output -incidentally fluid covered #Prolonged QTC (QTC 564) - Limit /avoid use of QTC prolongation medications - cardiology f/u out pt # Routine/PPX - PT/OT - Acute rehab - Activity: up with assistance - VTE ppx: Lovenox - RBOs: Senna/docusate, bisocodyl prn - Diet: Daily Healthy Menu Choices/Cardiac diet ([facility]-Diet) - Dispo: Pending course, Downgrade to floor pending PO #Other Diet: Normal Dispo: Pend Code Status: Full Balta Fontenot MS4 Eileen Prakash, PT - 04/08/2022 3:50 PM EDT Physical Therapy Note Treatment Number PT: 3 Patient profile: Denilson Go??is a 56 y.o.??male??with PMHx of HTN,??non- compliant with home meds (lisinopril 40mg, HCTZ) due to lack of access to PCP, presenting with bilateral thalamic hemorrhage. ?? Transferred to the [facility] after achieving adequate blood pressure control. ??He remains somewhat confused with cognitive difficulties, likely in the setting of innumerable small infarcts seen on MRI. ??He also may be having cognitive challenges due to hypertensive encephalopathy, which may improve somewhat with continued blood pressure control. ??We will continue his nicardipine drip with a goal BP of 160/90 as we eventually transition to oral antihypertensives. ??Will obtain renal duplex, TSH, UDS, aldosterone level to assess for secondary causes of hypertension. ??Although, his hypertension is in the setting of noncompliance with his home antihypertensives and this is likely the etiology of his cerebral findings. He also has evidence of??other??organ damage consistent with hypertensive injury including proteinuria, elevated creatinine, poor visual acuity.?Will consider ophthalmology consult early this week to better assess for retinopathy, which he likely has. Interval History: per Neuro note 04/08: - Doing well, no acute changes or complaints - Plan for Ophthalmology consult today - Continues on cardene despite initiation of labetalol - No new complaints or concerns Social History: Pt lives with his sister & ANTONY in [place], [place] ? Home Set-Up:??Pt lives on basement level with one step to enter and ramp up to family room ? 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 DME:??None?? ? Falls:??None?? Baseline Mobility: fully indep, amb without ad Equipment at home: none Fall history: denies Precautions/Special Considerations: fall risk, SBP <170 Mobility and Positioning Recommendations: ?? Pt amb short distances w RW and A x 2. ?? Please encourage up to chair for meal times as able. Subjective: I'm doing pretty good. How are you? Objective: Patient seen for physical therapy and demonstrated the following: Pain: denies Vital Signs: VSS throughout with exception of BP, SBP 170s, RN aware Cognition/Vision: alert, pleasant, cooperative, decreased recall and impaired insight Bed Mobility: NA; received in bedside recliner Transfers: Sit to Stand: CGA x2 with FWW, VCs for hand placement Stand to Sit: min assist x2 onto low height toilet, dec ecc control Gait: Distance: 40' Device used: rolling walker Level of assist: Min-mod assist x2 with gait belt and chair follow Gait mechanics: demo's dec gait speed, narrow JENNY with intermittent scissoring, max cues for wider JENNY. Moderate lateral trunk sway with dec proprioception/reaction to LOB. Requires assist for walker management Stairs: nt Balance: Sitting Static: good Sitting Dynamic: fair + Standing Static: fair with FWW Standing Dynamic / Gait: fair(-) with FWW Education: Patient educated on transfers, gait, use of assistive device, balance, safety, role of therapy and d/c planning. He will benefit from ongoing reinforcement. Pt left seated on toilet with RN present following visit. Assessment: Denilson Cheemaarland was seen today for physical therapy treatment session for continuationof POC. Pt appears to present with brighter affect and is engaged and cooperative throughout today'ssession. He was able to ambulate increased distance with 2 assist today, however his mechanics are significantly impaired at this time. Pt is a pleasant and motivated participant w good potential for ongoing gains, therapy does continue to recommend intensive inpt rehab setting at time of d/c. Pt will benefit from ongoing therapeutic interventions to achieve therapy goals. Discharge Recommendations: Based on the current findings, Anticipated Discharge Disposition (PT): acute rehabilitation facilitywhen medically ready for hospital discharge. Consult Recommendations: No other consults recommended at this time. Equipment needs: Anticipated Equipment Needs at Discharge (PT): to be determined Physical Therapy Goals: To be achieved by 04/14/22: ?? 1. Pt. to demonstrate knowledge of safety limitations and precautions and will appropriately requestassistance for functional activities and to mobilize. 2. Pt. to demonstrate understanding of appropriate HEP. 3. Pt. to perform bed mobility with modified independence. 4. Pt. to perform sit to stand transfers with modified independence using a front wheeled walker 5. Pt. to ambulate 150 feet with modified independence using a a front wheeled walker. 6. Pt. to ambulate up/down 1 step/stairs using one rail with supervision. 7. Family or caregiver to demonstrate understanding of therapeutic interventions to support the careof the patient. 8. Pt will tolerate progression towards upright with stable vital signs. Plan: Therapy Frequency (PT): 3-5 times/wk for therapy interventions as outlined in initial evaluation. Patient agrees with plan as stated. Time IN / OUT: 8881-1396 Total Minutes, Physical Therapy: 15 (gait1) Eileen Prakash, PT Pager: [phone] Physical Therapy Inpatient Rehabilitation Department Kendra Kingsley, OT - 04/08/2022 2:19 PM EDT Occupational Therapy Treatment Note Treatment Number OT: 3 Patient profile: Denilson Go??is a 56 y.o.??male??with PMHx of HTN,??non- compliant with home meds (lisinopril 40mg, HCTZ) due to lack of access to PCP, presenting with bilateral thalamic hemorrhage. 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 ?Subjective/24h Events - Requiring 5-10 mg/hour nicardipine (10 mg 7pm) - Started labetalol given K replacement , lovenox - 800 ml summers catheter outpt - reports vision is stable - Patient denies GARCIA NVD, weakness. - Says he remains confused - No other complaints at this time. - pending ophthalmology consult Social History:??Pt lives with his sister & ANTONY in [place], [place] ? Home Set-Up:??Pt lives on basement level with one step to enter and ramp up to family room ? 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 Precautions/Special Considerations:??at risk to fall,??visual/perceptual deficits ? Lines:?PIV, summers catheter ? Activity Orders:??Up with assistance? Diet:??cardiac diet?? Subjective: I am feeling a lot better today, my vision seems good right now Objective: Patient seen for therapeutic activities and demonstrated the following: Vital signs: ??? SpO2: 96% on RA ??? HR: 66 bpm ??? BP: 154/94, 172/95 (? accuracy) Pain: ??? No c/o pain Cognition: ??? Alert and oriented x 4 ?? Following one and two step commands appropriately ?? Improved affect; initiating conversation ?? Cooperative and motivated ?? Mildly distractible, benefits from cues ?? Slow processing ?? Difficulty with L/R directional commands Vision & Perception: ??? Visual perceptual impairments appear markedly improved (though when speaking with RN she reported they seem to wax/wane) ??? Impaired spatial awareness and ability to follow L/R directional commands ? ? Maximal cues for scanning L<>R ??? Improved ability to locate items on tray table and within visual field directly in front of him Functional Mobility: ??? Sitting in chair upon arrival ??? Sit to stand with min A x 2, walker, gait belt, cues for technique/safety ??? Ambulated 40 ft with min-mod A x 2, walker, gait belt, cues for technique/safety/visual scanning/environmental awareness ??? Toilet transfer with min-mod A x 2, walker, gait belt Strength/ROM: ??? Moving B UE functional, benefits from cues for bilateral integration Endurance: Tolerated ambulating 40 ft without seated rest break Education: Pt/family/caregiver education ongoing regarding: use of bilateral UE's functionally, scanning environment, out of bed activity, participation in self-care tasks, safety Staff Communication: Patient status, treatment, and mobility recommendations discussed with nursing/other staff. ASSESSMENT: Pt has been seen for occupational therapy interventions per POC. Pt with waxing/waning visual/perceptual impairments; today he was able to independently locate items directly in front of him without overshooting/undershooting but required cues for scanning environment during ambulation. Ptrequired min-mod A x 2 with walker and gait belt for safe mobility and functional transfers. Pt is highly motivated and cooperative. He is an excellent acute rehabilitation candidate and will benefit from intensive inpatient OT/PT services prior to discharge home with his family. Pt will benefit from ongoing therapeutic interventions to achieve pt's and therapy goals. Anticipated Discharge Disposition (OT): acute rehabilitation facility Equipment Recommendations: walker Activity Recommendations: ?? Promote normalcy by encouraging participation in common daily tasks & leisure activities by providing set up assist ?? Encourage bilateral UE integration ?? Give choices when possible to support feelings of autonomy ?? Keep glasses, hearing aides, cell phones, tablets, etc within reach ?? Facilitate a normal sleep-wake cycle ?? Provide brief, clear instruction from one source at a time ?? Reduce extraneous stimulation ?? Bathroom or commode for toileting needs vs. Using urinal &??bed polk ?? Utilize upright chair position using bed features or transfer to recliner chair as appropriate with??2A and walker ?? Encourage L<>R scanning ?? Goals:??To be achieved by 04/19/22 Patient will complete??toilet transfer, hygiene, and hand washing with supervision and minimal verbal cues?? Patient will complete standing grooming tasks at sink with??set up, supervision, and minimal verbal cues Patient will ambulate functional household distances to bathroom & kitchenette with??supervisionand verbal cues?? Patient will don/doff UB & LB clothing sitting EOB or upright in chair with??set up A?? Patient will follow 3/3??two??step commands consistently Patient will attend to functional task for 10 mins with minimal verbal cues ?? Therapy Frequency (OT): 3-5 times/wk 15 Minutes Sita Kingsley OT #[id number] Occupational Therapy Inpatient Rehabilitation Department Cathryn Reyes RN - 04/08/2022 9:54 AM EDT Clarified insurance coverage with sister Kendy. 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 [employer] has been notified to help screen for Medicaid. Cathryn Reyes RN CM SICU/NCCU Phone [phone] Pager [phone] Luther Purdy MD - 04/08/2022 7:48 AM EDT Vascular Neurology Progress Note Patient name: Denilson Go Date of : 1965 PCP: None Attending: Luther Purdy MD 24 Hour Events: - Doing well, no acute changes or complaints - Plan for Ophthalmology consult today - Continues on cardene despite initiation of labetalol - No new complaints or concerns Review of Systems: Negative except as documented in the HPI. Past Medical History: Past Medical History: Diagnosis Date ??? HTN (hypertension) Medications: Current Facility-Administered Medications Medication Dose Route Frequency Provider Last Rate Last Admin ??? tamsulosin (Flomax) capsule 0.8 mg 0.8 mg Oral Daily Marcel Delgadillo MD 0.8 mg at 04/07/22 1119 ??? heparin (porcine) (5,000 units/1 mL) subcutaneous injection 5,000 Units 5,000 Units [id number] [facility] Sahra Juan, ANA 5,000 Units at 04/08/22 0602 ??? labetaloL (Normodyne) tablet 100 mg 100 mg Oral BID Marc Norris MD 100 mg at 04/07/222057 ??? nicotine (Nicoderm CQ) 14 mg/24 hr patch 14 mg 1 patch Transdermal Daily Maurisio Amaya, DO And ??? nicotine (NICODERM CQ) 14 mg/24 hr patch Patch Verification 1 patch Transdermal BID Maurisio Amaya, DO And ??? nicotine (NICODERM CQ) 14 mg/24 hr patch Patch Removal 1 patch Transdermal Daily Maurisio Amaya, DO ??? lisinopriL (Zestril) tablet 20 mg 20 mg Oral Daily Maurisio Amaya, DO 20 mg at 04/07/22 0843 ??? sodium chloride 0.9 % (flush) (BD PosiFlush Normal Saline 0.9) flush 5-20 mL 5-20 mL IntravenousQ1 Min PRN Maurisio Amaya, DO ??? labetaloL (Normodyne) (5 mg/mL) injection solution 10-20 mg 10-20 mg Intravenous Q15 Min PRN Maurisio Amaya, DO 10 mg at 04/07/22 0858 ??? enalaprilat (Vasotec) (1.25 mg/mL) injection 1.25 mg 1.25 mg Intravenous Q6H PRN Maurisio Amaya, DO 1.25 mg at 04/07/22 1135 ??? niCARdipine (Cardene) (0.2 mg/mL) in sodium chloride 200 mL infusion 0-15 mg/hr Intravenous Continuous Maurisio Amaya, DO 75 mL/hr at 04/08/22 0700 15 mg/hr at 04/08/22 0700 ??? senna-docusate (Pericolace) 8.6-50 mg per tablet 2 tablet 2 tablet Oral BID Maurisio Amaya, DO2 tablet at 04/07/222057 ??? polyethylene glycoL (Miralax) packet 17 g 17 g Oral Daily Maurisio Amaya, DO 17 g at 04/07/22 0843 ??? magnesium hydroxide (Milk of Magnesia) (240 mg/mL) oral liquid 10 mL 10 mL Oral Nightly PRN Maurisio Amaya, DO ??? bisacodyL (Dulcolax) suppository 10 mg 10 mg Rectal Daily PRN Maurisio Amaya, DO ??? acetaminophen (Tylenol) tablet 975 mg 975 mg Oral Q6H PRN Maurisio Amaya, DO 975 mg at 04/07/22 1239 Or ??? acetaminophen (Tylenol) (32.02 mg/mL) oral liquid 975 mg 975 mg Per G Tube Q6H PRN Maurisio Amaya, DO Or ??? acetaminophen (Tylenol) suppository 975 mg 975 mg Rectal Q6H PRN Maurisio Amaya, DO ??? hydrALAZINE (Apresoline) (20 mg/mL) injection 10 mg 10 mg Intravenous Q4H PRN Maurisio Amaya, DO 10 mg at 04/07/22 1010 No Known Allergies Family History Problem Relation Age of Onset ??? Aneurysm Mother ??? Aneurysm Father Social History Socioeconomic History ??? Marital status: Unknown Spouse name: Not on file ??? Number of children: Not on file ??? Years of education: Not on file ??? Highest education level: Not on file Occupational History ??? Not on file Tobacco Use ??? Smoking status: Never Smoker ??? Smokeless tobacco: Current User Types: Chew Substance and Sexual Activity ??? Alcohol use: Yes Alcohol/week: 12.0 standard drinks Types: 12 Cans of beer per week ??? Drug use: No ??? Sexual activity: Not on file Other Topics Concern ??? Not on file Social History Narrative ??? Not on file Social Determinants of Health Financial Resource Strain: Not on file Food Insecurity: Not on file Transportation Needs: Not on file Physical Activity: Not on file Housing Stability: Not on file Physical Exam: Vitals: Last value Range last 24 hrs Temperature Temp: 36.7 ??C (98.1 ??F) Temp: [36.5 ??C (97.7 ??F)-37 ??C (98.6 ??F)] Heart Rate Heart Rate: 79 Heart Rate: [66-93] Blood Pressure BP: 143/81 BP: (126-188)/(65-95) Respiratory Rate Resp: 16 Resp: [12-23] SpO2 SpO2: 93 % SpO2: [91 %-98 %] I/O: 04/07 0701 - 04/08 0700 In: 3777.8 [P.O.:1200; I.V.:2575.8] Out: 1900 [Urine:1900] General: Appears stated age, WDWN, NAD HEENT: NC/AT, MMM Pulm: Normal respiratory effort CV: NRRR Abdomen: Soft, NT/ND. Extremities: BLE no edema, no obvious deformity Neuro: MS: Level of consciousness: Alert Orientation: situation, follows simple and complex commands. No gaze deviation, naming intact. Cognition impaired, slowed responses, seems unsure. CN: CN II, III - VF full to motion, PERRLA, suspect profound visual acuity deficit, but did quantifywith bedside Snellen chart. CN III, IV, - EOMI without nystagmus, no ptosis CN V - Facial sensation intact CN VII - Face symmetric CN VIII - Hearing intact to voice/finger rub CN IX, X, XII - symmetric palate elevation, tongue midline CN XI - SCM, trap strength intact Motor: Bulk: No focal atrophy noted Tone: Normal throughout Abnormal movements: None observed Fine motor: intact, no bradykinesia Strength: BUE / BLE 5/5 Sensory: Symmetrically intact to light touch throughout confuses Left vs Right Reflexes: 2+/4 Throughout Clonus: Not assessed this morning Coordination: FNF with moderate bilateral intention tremor Gait: Deferred Labs: Recent Results (from the past 24 hour(s)) Magnesium Result Value Ref Range Magnesium 0.72 0.69 - 1.07 mmol/L Phosphorus Result Value Ref Range Phosphorus 3.0 2.5 - 4.5 mg/dL Basic Metabolic Panel (non-fasting) Result Value Ref Range Glucose Lvl 135 65 - 199 mg/dL BUN 13 10 - 20 mg/dL Creatinine 1.52 (H) 0.80 - 1.50 mg/dL Sodium 141 135 - 145 mmol/L Potassium 3.2 (L) 3.5 - 5.0 mmol/L Chloride 110 (H) 98 - 107 mmol/L CO2 21 (L) 22 - 31 mmol/L Anion Gap 10 5 - 15 mmol/L Calcium 8.8 8.5 - 10.5 mg/dL Estimated GFR 53 (L) >=60 mL/min/1.73 m?? Hemogram Result Value Ref Range WBC 8.7 4.0 - 9.5 x10(3)/mcL RBC 3.64 (L) 4.58 - 5.54 x10(6)/mcL Hemoglobin 10.8 (L) 13.7 - 16.5 g/dL Hematocrit 31.6 (L) 40.5 - 48.5 % MCV 86.8 82.9 - 93.1 fL MCH 29.7 27.5 - 32.1 pg MCHC 34.2 32.0 - 35.7 g/dL Platelets 178 145 - 357 x10(3)/mcL RDWSD 42.2 36.0 - 45.0 fL RDWCV 13.5 11.4 - 13.8 % MPV 10.2 7.6 - 12.9 fL nRBC % Auto 0.0 % nRBC Abs Auto 0.000 0.000 - 0.000 x10(3)/mcL Differential, Automated Result Value Ref Range Neutrophils % 73.4 % Neutr Abs (ANC) 6.35 (H) 1.70 - 6.10 x10(3)/mcL Lymphocytes % 14.7 % Lymphocytes Abs 1.3 0.9 - 3.2 x10(3)/mcL Monocytes % 7.6 % Monocyte Abs 0.7 0.3 - 0.9 x10(3)/mcL Eosinophils % 3.3 % Eosinophils Abs 0.3 0.0 - 0.4 x10(3)/mcL Basophils % 0.7 % Basophils Abs 0.1 0.0 - 0.1 x10(3)/mcL Immature Gran % 0.30 % [place] Gran Abs 0.03 0.00 - 0.04 x10(3)/mcL Diagnostic Tests and Imaging: MRI Brain wwo Contrast (Generic) Final Result 1. Extensive leukoaraiosis. 2. Extensive, largely nonenhancing, signal abnormality within the bilateral thalami. There is no decreased diffusion. Differential diagnosis includes sequela of old ischemia, vasogenic edema related to the sites of hemorrhage, and, less commonly, a toxic or metabolic disorder. 3. Innumerable small foci of intracerebral hemorrhage in a pattern consistent with long-standing hypertension. An additional component related to amyloid angiopathy cannot be excluded. 4. Numerous small foci of acute or subacute infarction scattered in the bilateral cerebral hemispheres Thank you for letting us participate in the care of this patient. If you are a health care provider and have any questions regarding this report, please contact the number below. For patients who have questions please contact the health animal care provider that requested your imaging first. Electronically signed by: Bret Calvert MD, [facility] ([phone]), at 04/06/2022 12:03 PM MRI Angiogram Head wo Contrast (Generic) Final Result No site of more than mild intracranial stenosis. Thank you for letting us participate in the care of this patient. If you are a health care provider and have any questions regarding this report, please contact the number below. For patients who have questions please contact the health animal care provider that requested your imaging first. Head wo Contrast (Generic) Final Result Areas of hypoattenuation within the bilateral thalami most likely representing ischemic infarction. Differential diagnosis includes vasogenic edema about sites of hemorrhage but the areas of hypoattenuation are large relative to the sites of hemorrhage, the hypoattenuation is sharply marginated, and there is little mass effect. The sites of high attenuation material within each of these areas, likely hemorrhage, are unchanged. Extensive inflammatory changes of the paranasal sinuses. Thank you for letting us participate in the care of this patient. If you are a health care provider and have any questions regarding this report, please contact the number below. For patients who have questions please contact the health animal care provider that requested your imaging first. Assessment/Plan: Denilson Go is a 56 y.o. male with PMHx of HTN, non-compliant with home meds (lisinopril 40mg,HCTZ) due to lack of access to PCP, presenting with bilateral thalamic hemorrhage. 04/08/2022: No acute issues overnight. Cardene being downtitrated as oral labetalol is uptitrated. Plan for formal ophathlmology consultation today. Summers placed overnight, continue flomax and work towards removal ~8/11 in AM. # Bilateral thalami intraparenchymal hemorrhages with bilateral vasogenic cerebral edema, and diffuse petechial hemorrhages, Suspect underlying severe PRES # Essential Hypertension - Continue step-down status - NC/VS Q4H / Q2H - MRI with innumerable small foci of cerebral hemorrhage, bilateral thalamic IPH, symmetric posterior white matter hyperintensity, extending into BG and brainstem. - MRA without significant stenosis of intracerebral vessels - NOTE : No neck vascular imaging performed yet. -SBP goal <160, dBP goal <100 - continue nicard gtt, PRNs available, start with labetalol - lisinopril 20mg qd - Increase Labetalol to 200 mg PO BID - TTE pending - troponin peak at 0,06, d/c trend Repeat Trop tomorrow AM. - Begin DVT ppx with SQH given Cr Consider transition to enoxaparin with improved -f/u UDS, random aldosterone, TSH/T4free -renal duplex - End organ damage, unable to obtain arterial duplex studies -Opthalmology consulted, awaiting recommendations #Acute Kidney Injury, Improving - Caution with continuing lisinopril - Slow reduction in SBP to avoid renal hypoperfusion - Continue to monitor Cr, electrolytes - Renal duplex without MELVIN # Troponinemia - Troponin stabilized Will recheck tomorrow AM - No active chest pain, continue to monitor # Decreased Visual Acuity in the Setting of Profound Hypertension and End-Organ Damage - Ophthalmology consult - Blood pressure control as described above # Acute Urinary Rentention - Continue Tamsulosin 0.8 mg PO Daily - Remove summers 04/10 in AM # Routine/PPX - PT/OT/NEEDLE GRADER - Activity: up with assistance - VTE ppx: SCDs - RBOs: Senna/docusate, bisocodyl prn - Diet: Daily Healthy Menu Choices/Cardiac diet ([facility]-Diet) - Dispo: Pending course - Code: Attempt Cardiopulmonary Resuscitation - Inpatient Marc Norris MD Neurology, PGY-2 Vascular Neurology Service #[id number] 04/08/2022 Neurology Attending Attestation I evaluated the patient with the Stroke Team during bedside rounds. I have reviewed the medical records and patient's history, as well as the resident???s history and examination findings and I agree with the details as written. My neurologic examination confirms the resident???s findings. We formulated the assessment and plan after a detailed discussion, as documented. Balta Fontenot - 04/08/2022 6:48 AM EDTSniya: PN Neurology Daily Progress Note - 04/08/2022 Patient Name: Denilson Go Admit Date: 04/05/2022 Attending: Luther Purdy MD ID: 54 yo m PMH uncontrolled HTN (not on meds) presented to from OSH with bilateral Thalamic Hemorrhages and PRESS syndrome. Subjective/24h Events - Requiring 5-10 mg/hour nicardipine (10 mg 7pm) - Started labetalol given K replacement , lovenox - 800 ml summers catheter outpt - reports vision is stable - Patient denies GARCIA NVD, weakness. - Says he remains confused - No other complaints at this time. - pending ophthalmology consult PER OT - acute rehab facility - Would benefit from opthalmology evaluation PER PT - acute rehab ?? Medications: Scheduled Meds: ??? Potassium supplement in solution 20 mEq Oral Q6H ??? labetaloL 200 mg Oral BID ??? tamsulosin 0.8 mg Oral Daily ??? heparin (porcine) 5,000 Units Subcutaneous Q8H WILLIAM ??? nicotine 1 patch Transdermal Daily And ??? Patch Verification 1 patch Transdermal BID And ??? nicotine 1 patch Transdermal Daily ??? lisinopriL 20 mg Oral Daily ??? senna-docusate 2 tablet Oral BID ??? polyethylene glycoL (MIRALAX) oral powder 17 g Oral Daily Continuous Infusions: ??? niCARdipine 15 mg/hr (04/08/22 0700) PRN Meds:.sodium chloride 0.9 % (flush), labetaloL, enalaprilat, magnesium hydroxide, bisacodyL, acetaminophen OR acetaminophen OR acetaminophen, hydrALAZINE Physical Exam: Last value Range last 24 hrs Temperature Temp: 36.6 ??C (97.9 ??F) Temp: [36.5 ??C (97.7 ??F)-37 ??C (98.6 ??F)] Heart Rate Heart Rate: 88 Heart Rate: [66-93] Blood Pressure BP: 164/84 BP: (126-188)/(66-95) Respiratory Rate Resp: 25 Resp: [12-25] SpO2 SpO2: 96 % SpO2: [91 %-98 %] Tele unremark HR in 60s Intake/Output Summary (Last 24 hours) at 04/08/2022 0902 Last data filed at 04/08/2022 0744 Gross per 24 hour Intake 3237.75 ml Output 2375 ml Net 862.75 ml S/p Summers placed with 800 output Patient Vitals for the past 168 hrs: Weight 04/08/22 0600 119 kg (262 lb 5.6 oz) 08/07/22 0615 114.2 kg (251 lb 12.3 oz) Labs: Recent Labs 04/08/22 0120 04/07/22 0430 04/06/22 0415 WBC 8.7 9.8* 12.6* HGB 10.8* 12.1* 11.9* HCT 31.6* 34.8* 32.8* PLATELET 178 206 178 MCV 86.8 86.8 85.0 Resolving leukocytosis Stable normocytic anemia Recent Labs 04/08/22 0120 04/07/22 0430 04/06/22 1800 04/06/22 1010 04/06/22 0415 NA 141 141 -- -- 139 CL 110* 109* -- -- 102 CO2 21* 21* -- -- 23 K 3.2* 3.1* 3.1* 3.2* 2.9* MAGNESIUM 0.72 0.76 -- -- 0.79 PHOS 3.0 3.2 -- -- 3.7 CALCIUM 8.8 8.7 -- -- 8.8 BUN 13 17 -- -- 28* CREATININE 1.52* 1.68* -- -- 1.99* Improving CR Hypokalemia s/p PO tablet LFTs Recent Labs 04/05/22 1535 PROT 7.3 ALBUMIN 4.1 AST 32 ALT 37 ALKPHOS 65 BILITOT 1.3 BILIDIR 0.6* Coags Recent Labs 04/05/22 1535 INR 1.2 PT 13.2* PTT 31 Cardiac Enzymes Recent Labs 04/06/22 1010 04/06/22 0415 04/05/22 22304/05/22 1535 TROPONINT 0.06* 0.06* 0.04* 0.02* Endocrine Recent Labs 04/06/22 1435 04/05/22 1535 TSH 3.14 2.20 A1C - pending Recent Labs 04/05/22205104/05/22 1548 POCGLU 144 138 Drug Screen Latest Reference Range & Units 04/07/22 01:18 CAITLIN Conf Requested No (C) U Barbiturates Screen None Detected None Detected U Benzodiazepines Screen None Detected None Detected U Cocaine Screen None Detected None Detected U Methadone Metabolites Screen None Detected None Detected U Opiate Screen None Detected None Detected U Cannabinoid Screen None Detected None Detected U Oxycodone Screen None Detected None Detected U Buprenorphine Screen None Detected None Detected U Fentanyl Screen None Detected None Detected U Tricyclics Screen None Detected None Detected U Ethanol Screen None Detected None Detected U Amphetamines Screen None Detected None Detected U Adulterants Screen None Detected None Detected (C): Corrected Micro Microbiology Results (Last 30 days) No results found for the last 720 hours. Imaging: Results for orders placed or performed during the hospital encounter of 04/05/22 MRI Brain wwo Contrast (Generic) (Exam End: 04/06/2022 9:42 AM) Impression 1. Extensive leukoaraiosis. 2. Extensive, largely nonenhancing, signal abnormality within the bilateral thalami. There is no decreased diffusion. Differential diagnosis includes sequela of old ischemia, vasogenic edema related to the sites of hemorrhage, and, less commonly, a toxic or metabolic disorder. 3. Innumerable small foci of intracerebral hemorrhage in a pattern consistent with long-standing hypertension. An additional component related to amyloid angiopathy cannot be excluded. 4. Numerous small foci of acute or subacute infarction scattered in the bilateral cerebral hemispheres Thank you for letting us participate in the care of this patient. If you are a health care provider and have any questions regarding this report, please contact the number below. For patients who have questions please contact the health animal care provider that requested your imaging first. Electronically signed by: Bret Calvert MD, [facility] ([phone]), at 04/06/2022 12:[address] Head wo Contrast (Generic) (Exam End: 04/05/2022 6:39 PM) Impression Areas of hypoattenuation within the bilateral thalami most likely representing ischemic infarction. Differential diagnosis includes vasogenic edema about sites of hemorrhage but the areas of hypoattenuation are large relative to the sites of hemorrhage, the hypoattenuation is sharply marginated, and there is little mass effect. The sites of high attenuation material within each of these areas, likely hemorrhage, are unchanged. Extensive inflammatory changes of the paranasal sinuses. Thank you for letting us participate in the care of this patient. If you are a health care provider and have any questions regarding this report, please contact the number below. For patients who have questions please contact the health animal care provider that requested your imaging first. Angiogram Head wo Contrast (Generic) (Exam End: 04/06/2022 9:42 AM) Impression No site of more than mild intracranial stenosis. Thank you for letting us participate in the care of this patient. If you are a health care provider and have any questions regarding this report, please contact the number below. For patients who have questions please contact the health animal care provider that requested your imaging first. Renal US 04/06 Interpretation: ?? Right: Doppler waveforms are consistent with abnormally elevated parenchymal resistance. Main renal artery not visualized due to abdominal gas, cannot exclude a stenosis. ?? Left: Doppler waveforms are consistent with abnormally elevated parenchymal resistance. Main renal artery not visualized due to abdominal gas, cannot exclude a stenosis. ?? Comparison: ??No previous study in our vascular lab database for comparison. ?? TTE 04/07 Interpretation Summary The left ventricular size is normal. Wall thickness is severely increased. LV function is normal with LVEF of 60% by Peters's biplane and no wall motion abnormalities. Right ventricular size and function are normal. PASP 26 mm Hg (assuming RA pressure 3 mm Hg). The left atrium is moderately dilated. The right atrium is mildly dilated. There is no hemodynamically significant valvular disease present. No prior echo for comparison. Severely increased wall thickness - this could be due to long-standing hypertension, but cannot rule out other conditions, such as amyloid. Consider cardiac MRI if clinically appropriate. Summary - EF 60% LVH, no PFO, no valvular disease, no pfo with Physical Exam General: alert, in NAD oriented to person place time, unable to state monika back/ PADDY HEENT: Sclera anicteric, conjunctiva nl, EOMI, no lesions noted. NC/AT Lung: Normal WOB Abd: ND. Skin: No suspicious rashes or lesions Neuro Exam: MS: Awake, alert, oriented to person, place, time, Not situation No dysarthria, language fluent, cooperative with neuro CN: R pupil mildly dilated, EOMI, visual smith full, able to read menu Facial sensation intact to light touch, No facial asymmetry Hearing intact to voice Palate elevates symmetrically, tongue protrudes midline SCM and trap strength intact Motor: Normal bulk and tone. 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 male with PMHx of HTN, non-compliant with home meds (lisinopril 40mg,HCTZ) due to lack of access to PCP, presenting with bilateral thalamic hemorrhage. 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 ?? Stable elevated blood pressure . . Continues to have confusion and difficulty tracking. Suspect Hypertensive emergency. Current UDS (NEG)/TSH (3.14)/ CLIFFORD unclear as to secondary cause of HTN. Still pending aldosterone. Will be consulting ophthalmology. Blood pressure remains nicardipine dependent will aim to wean and increase PO regimen. ?? 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 #Diffuse infarcts of bilateral hemispheres - NC/VS Q2H - MRI with innumerable small foci of cerebral hemorrhage and abnormal signal in b/l thalami - MRA without significant stenosis of intracerebral vessels - Consider Carotid Duplex/MRA/CTA Neck - TTE 04/07 Normal - PENDING opthalmology consult - CONT Lovenox DVT PPX #HTN -SBP goal <160, dBP goal <100 - DISContinue nicard gtt, PRNs available, start with labetalol - CONT lisinopril 20mg qd - CONT Labetalol 100 mg BID uptitrate 200 BID - TSH 3.14 WNL - A1c Pending - UDS Negative - troponin peak at 0,06, d/c trend - TTE LVH, CONSIDER MRI - OUPT CARD - PENDING random aldosterone -Renal duplex US 04/06 cannot r/o stenosis #MARY Downtrending 1.99 to 1.68 to 1.52. Will CTM. Suspect in setting of elevated BP. BUN:CR <20 suspect intra/post renal. - Daily BMP - Continue tamsulosin 0.8 - Summers in place monitor output -incidentally fluid covered #Prolonged QTC (QTC 564) - Limit /avoid use of QTC prolongation medications - cardiology # Routine/PPX - PT/OT - Activity: up with assistance - VTE ppx: Lovenox - RBOs: Senna/docusate, bisocodyl prn - Diet: Daily Healthy Menu Choices/Cardiac diet ([facility]-Diet) - Dispo: Pending course #Other Diet: Normal Dispo: Pend Code Status: Full Balta Fontenot MS4 Kimi Thompson, PT - 04/07/2022 5:34 PM EDT Physical Therapy Note Treatment Number PT: 2 Patient profile: Denilson Go??is a 56 y.o.??male??with PMHx of HTN,??non- compliant with home meds (lisinopril 40mg, HCTZ) due to lack of access to PCP, presenting with bilateral thalamic hemorrhage. ?? Transferred to the [facility] after achieving adequate blood pressure control. ??He remains somewhat confused with cognitive difficulties, likely in the setting of innumerable small infarcts seen on MRI. ??He also may be having cognitive challenges due to hypertensive encephalopathy, which may improve somewhat with continued blood pressure control. ??We will continue his nicardipine drip with a goal BP of 160/90 as we eventually transition to oral antihypertensives. ??Will obtain renal duplex, TSH, UDS, aldosterone level to assess for secondary causes of hypertension. ??Although, his hypertension is in the setting of noncompliance with his home antihypertensives and this is likely the etiology of his cerebral findings. He also has evidence of??other??organ damage consistent with hypertensive injury including proteinuria, elevated creatinine, poor visual acuity.?Will consider ophthalmology consult early this week to better assess for retinopathy, which he likely has. Interval History: NKAE. Remains in [facility] Social History: Pt lives with his sister & ANTONY in [place], [place] ? Home Set-Up:??Pt lives on basement level with one step to enter and ramp up to family room ? 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 DME:??None?? ? Falls:??None?? Baseline Mobility: fully indep, amb without ad Equipment at home: none Fall history: denies Precautions/Special Considerations: fall risk, SBP <170 Mobility and Positioning Recommendations: ?? Pt amb short distances w RW and A x 2. ?? Please encourage up to chair for meal times as able. Subjective: I got some sleep, I think i'm a lot better today Objective: Patient seen for physical therapy and demonstrated the following: Pain: denies Vital Signs: SpO2 98% on rA, HR 70s, BP 160s/80s Cognition/Vision: pending Ophthalmology assessment Bed Mobility: Supine to Sit: supervised Sit to Supine: N/A Transfers: Sit to Stand: contact guard assist using rolling walker Stand to Sit: contact guard assist using rolling walker Bed to Chair: minimum assist using two railings Gait: Distance: 5' Device used: rolling walker Level of assist: moderate assist x 1-2 Gait mechanics: intermittent scissoring, decreased step length Stairs: nt Balance: Sitting Static: good Sitting Dynamic: fair + Standing Static: fair Standing Dynamic / Gait: fair - Education: Pt educ re: activity progression, fall prevention Pt left in bedside recliner chair, with all needs met, with call lucio in reach and with chair alarm active RN present following visit. Assessment: Denilson Go was seen today for physical therapy treatment session for continuationof POC. Pt tolerated rx well and demonstrated improved functional activity tolerance as compared to prior visit, but does continue to demonstrate motor control deficits, especially w standing tasks. Ptis a pleasant and motivated participant w good potential for ongoing gains, therapy does continue torecommend intensive inpt rehab setting at time of d/c. Pt will benefit from ongoing therapeutic interventions to achieve therapy goals. Discharge Recommendations: Based on the current findings, Anticipated Discharge Disposition (PT): acute rehabilitation facilitywhen medically ready for hospital discharge. Consult Recommendations: No other consults recommended at this time. Equipment needs: Anticipated Equipment Needs at Discharge (PT): to be determined Physical Therapy Goals: To be achieved by 04/14/22: ?? 1. Pt. to demonstrate knowledge of safety limitations and precautions and will appropriately requestassistance for functional activities and to mobilize. 2. Pt. to demonstrate understanding of appropriate HEP. 3. Pt. to perform bed mobility with modified independence. 4. Pt. to perform sit to stand transfers with modified independence using a front wheeled walker 5. Pt. to ambulate 150 feet with modified independence using a a front wheeled walker. 6. Pt. to ambulate up/down 1 step/stairs using one rail with supervision. 7. Family or caregiver to demonstrate understanding of therapeutic interventions to support the careof the patient. 8. Pt will tolerate progression towards upright with stable vital signs. Plan: Therapy Frequency (PT): 3-5 times/wk for therapy interventions as outlined in initial evaluation. Patient agrees with plan as stated. Time IN / OUT: 1138 - 1205 Total Minutes, Physical Therapy: 27 Billing Code: nm re-ed x 2 KIMI THOMPSON, PT Pager: [phone] Physical Therapy Inpatient Rehabilitation Department Kendra Kingsley, OT - 04/07/2022 2:21 PM EDT Occupational Therapy Treatment Note Treatment Number OT: 2 Patient Profile: Brigette Go??is a 56 y.o.??male??with PMHx of HTN,??non- compliant with home meds (lisinopril 40mg, HCTZ) due to lack of access to PCP, presenting with bilateral thalamic hemorrhage. ?? Denilson??is being transferred??down from??the [facility] after achieving adequate blood pressure control. ??He remains somewhat confused with cognitive difficulties, likely in the setting of innumerable small infarcts seen on MRI. ??He also may be having cognitive challenges due to hypertensive encephalopathy, which may improve somewhat with continued blood pressure control. ??We will continue his nicardipine drip with a goal BP of 160/90 as we eventually transition to oral antihypertensives. ??Will obtain renal duplex, TSH, UDS, aldosterone level to assess for secondary causes of hypertension. ??Although, his hypertension is in the setting of noncompliance with his home antihypertensives and this is likely the etiology of his cerebral findings. He also has evidence of??other??organ damage consistent with hypertensive injury including proteinuria, elevated creatinine, poor visual acuity.?Will consider ophthalmology consult early this week to better assess for retinopathy, which he likely has. ?? Social History: Pt lives with his sister & ANTONY in [place], [place] ? Home Set-Up: Pt lives on basement level with one step to enter and ramp up to family room ? 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 Lines: PIV ? Activity Orders: Up with assistance ? Diet: cardiac diet Interval History: - No acute issues overnight. Afebrile - Persistently hypertensive on maximum cardene infusion - Reports no headache, nausea, or vomiting this morning - +BM, voiding with some difficulty and some retention - No other acute concerns or complaints Subjective: I got some sleep last night and feel a lot better Objective: Patient seen for therapeutic activities and demonstrated the following: Vital signs: ??? SpO2: 98% on RA ??? HR: 85 bpm ??? BP: 162/82 mmHg Pain: ??? No c/o pain Cognition: ??? Alert and oriented x 4 ??? Following one and two step commands appropriately ??? Improved affect compared to evaluation; initiating conversation ??? Cooperative and motivated ??? Mildly distractible, benefits from cues ??? Slow processing ??? Unable to read clock on wall Vision & Perception: ?? Visual/perceptual impairments present, difficulty to assess d/ inconsistent command following, pt's family reports baseline visual deficits and stated that pt would often bump into/run over objects directly in front of him ?? Visual smith: intact to confrontation testing ?? Spatial awareness: impaired, maximal cues to scan environment ?? Decreased visual acuity ?? Decreased ability to scan environment ?? Able to locate sink directly in front of him ?? Unable to read clock on wall or numbers on watch ?? Would benefit from opthalmology evaluation Functional Mobility: ??? Supine to sit with cgA towards L ??? Sat EOB with good static and dynamic balance, no LOB noted ??? Sit to stand with cgA x 2 and cues with walker ??? Ambulated to sink approx 5 feet with min A x 2 and walker, impaired balance, + scissoring ??? Stood at sink, requiring mod A to maintain midline, benefits from close chair follow ??? Maximal cues for use of walker and balance, narrow base of support Strength/ROM: ? ? Using bilateral UE functionally, L > R, benefits from cues for bilateral integration Endurance: tolerated session well other than hypertension (160's/80's) Education: Pt/family/caregiver education ongoing regarding: out of bed activity, participating in self-care and ADL's, balance, safety, vision, discharge planning Staff Communication: Patient status, treatment, and mobility recommendations discussed with nursing/other staff. ASSESSMENT: Pt has been seen for occupational therapy interventions per POC. Pt highly motivated andeager to participate. He had improved affect and was initiating conversation more appropriately. Pt with continued visual/perceptual deficits. Continue to recommend ophthalmology consult. Pt requiring varied levels of assist for functional mobility and ADL's ranging from cg-min A x 2 with walker. Pt will benefit greatly from intensive acute rehabilitation at discharge to maximize independence and safety within home environment. Pt will benefit from ongoing therapeutic interventions to achieve pt's and therapy goals. Anticipated Discharge Disposition (OT): acute rehabilitation facility Equipment Recommendations: walker Activity Recommendations: ?? Promote normalcy by encouraging participation in common daily tasks & leisure activities by providing set up assist ?? Encourage use of coping & calming strategies ?? Give choices when possible to support feelings of autonomy ?? Frequent orientation verbally & visually ?? Keep glasses, hearing aides, cell phones, tablets, etc within reach ?? Facilitate a normal sleep-wake cycle ?? Provide brief, clear instruction from one source at a time ?? Reduce extraneous stimulation ?? Provide calming music, favorite TV programs, magazines or newspapers ?? Bathroom or commode for toileting needs vs. Using urinal & bed polk ?? Utilize upright chair position using bed features or transfer to recliner chair as appropriate with 2A and walker Goals: To be achieved by 04/19/22 Patient will complete toilet transfer, hygiene, and hand washing with supervision and minimal verbalcues Patient will complete standing grooming tasks at sink with set up, supervision, and minimal verbal cues Patient will ambulate functional household distances to bathroom & kitchenette with supervision and verbal cues Patient will don/doff UB & LB clothing sitting EOB or upright in chair with set up A Patient will follow 3/3 two step commands consistently Patient will attend to functional task for 10 mins with minimal verbal cues Therapy Frequency (OT): 2-3 times/wk 28 minutes; therapeutic act x 2 Sita Kingsley OT #[id number] Occupational Therapy Inpatient Rehabilitation Department Lia Cote - 04/07/2022 10:15 AM EDTSummary: While rounding on unit, visited Denilson briefly to offer emotional and spiritual support. Assistant Refinery Operator Encounter Note Patient Name: Denilson Go : [id number] MR#: [id number] Admit Date: 04/05/2022 3:17 PM Hospital Day 2 days Narrative: While rounding on unit, visited Denilson briefly to offer emotional and spiritual support. Assessment: Denilson was awake and alert, and welcomed me into the room. He stated he has lived in the [facility] most of his life and is content there. He stated, laughing My mind is a bit blank right now. Intervention and Outcome: I listened and validated his feeling out of his norm, and expressed availability. He expressed appreciation for visit. Follow-up: Grounds Maintenance Manager service remains available. Time in Direct Care: 10 minutes Lia Cote 04/07/2022 Marc Norris MD - 04/07/2022 8:03 AM EDT Vascular Neurology Progress Note Patient name: Denilson Go Date of : 1965 PCP: None Attending: Luther Purdy MD 24 Hour Events: - No acute issues overnight. Afebrile - Persistently hypertensive on maximum cardene infusion - Reports no headache, nausea, or vomiting this morning - +BM , voiding with some difficulty and some retention - No other acute concerns or complaints Review of Systems: Negative except as documented in the HPI. Past Medical History: Past Medical History: Diagnosis Date ??? HTN (hypertension) Medications: Current Facility-Administered Medications Medication Dose Route Frequency Provider Last Rate Last Admin ??? nicotine (Nicoderm CQ) 14 mg/24 hr patch 14 mg 1 patch Transdermal Daily Maurisio Amaya, DO And ??? nicotine (NICODERM CQ) 14 mg/24 hr patch Patch Verification 1 patch Transdermal BID Maurisio Amaya, DO And ??? nicotine (NICODERM CQ) 14 mg/24 hr patch Patch Removal 1 patch Transdermal Daily Maurisio Amaya, DO ??? lisinopriL (Zestril) tablet 20 mg 20 mg Oral Daily Maurisio Amaya, DO 20 mg at 04/06/22 0824 ??? sodium chloride 0.9 % (flush) (BD PosiFlush Normal Saline 0.9) flush 5-20 mL 5-20 mL IntravenousQ1 Min PRN Maurisio Amaya, DO ??? labetaloL (Normodyne) (5 mg/mL) injection solution 10-20 mg 10-20 mg Intravenous Q15 Min PRN Maurisio Amaya, DO 10 mg at 04/06/22 0307 ??? enalaprilat (Vasotec) (1.25 mg/mL) injection 1.25 mg 1.25 mg Intravenous Q6H PRN Maurisio Amaya, DO 1.25 mg at 04/05/22 1701 ??? niCARdipine (Cardene) (0.2 mg/mL) in sodium chloride 200 mL infusion 0-15 mg/hr Intravenous Continuous Maurisio Amaya, DO 75 mL/hr at 04/07/22 0605 15 mg/hr at 04/07/22 0605 ??? senna-docusate (Pericolace) 8.6-50 mg per tablet 2 tablet 2 tablet Oral BID Maurisio Amaya, DO2 tablet at 04/06/22 0824 ??? polyethylene glycoL (Miralax) packet 17 g 17 g Oral Daily Maurisio Amaya, DO ??? magnesium hydroxide (Milk of Magnesia) (240 mg/mL) oral liquid 10 mL 10 mL Oral Nightly PRN Maurisio Amaya, DO ??? bisacodyL (Dulcolax) suppository 10 mg 10 mg Rectal Daily PRN Maurisio Amaya, DO ??? acetaminophen (Tylenol) tablet 975 mg 975 mg Oral Q6H PRN Maurisio Amaya, DO Or ??? acetaminophen (Tylenol) (32.02 mg/mL) oral liquid 975 mg 975 mg Per G Tube Q6H PRN Maurisio Amaya, DO Or ??? acetaminophen (Tylenol) suppository 975 mg 975 mg Rectal Q6H PRN Maurisio Amaya, DO ??? hydrALAZINE (Apresoline) (20 mg/mL) injection 10 mg 10 mg Intravenous Q4H PRN Maurisio Amaya, DO 10 mg at 04/06/22 0545 No Known Allergies Family History Problem Relation Age of Onset ??? Aneurysm Mother ??? Aneurysm Father Social History Socioeconomic History ??? Marital status: Unknown Spouse name: Not on file ??? Number of children: Not on file ??? Years of education: Not on file ??? Highest education level: Not on file Occupational History ??? Not on file Tobacco Use ??? Smoking status: Never Smoker ??? Smokeless tobacco: Current User Types: Chew Substance and Sexual Activity ??? Alcohol use: Yes Alcohol/week: 12.0 standard drinks Types: 12 Cans of beer per week ??? Drug use: No ??? Sexual activity: Not on file Other Topics Concern ??? Not on file Social History Narrative ??? Not on file Social Determinants of Health Financial Resource Strain: Not on file Food Insecurity: Not on file Transportation Needs: Not on file Physical Activity: Not on file Housing Stability: Not on file Physical Exam: Vitals: Last value Range last 24 hrs Temperature Temp: 36.7 ??C (98.1 ??F) Temp: [36.7 ??C (98.1 ??F)-36.9 ??C (98.4 ??F)] Heart Rate Heart Rate: 81 Heart Rate: [66-88] Blood Pressure BP: 158/82 BP: (126-168)/(67-121) Respiratory Rate Resp: 21 Resp: [14-28] SpO2 SpO2: 96 % SpO2: [92 %-100 %] I/O: 04/06 0701 - 04/07 0700 In: 4149.9 [P.O.:1200; I.V.:2949.9] Out: 2225 [Urine:2225] General: Appears stated age, WDWN, NAD HEENT: NC/AT, MMM Pulm: Normal respiratory effort CV: NRRR Abdomen: Soft, NT/ND. Extremities: BLE no edema, no obvious deformity Neuro: MS: Level of consciousness: Alert Orientation: situation, follows simple and complex commands. No gaze deviation, naming intact. Cognition impaired, slowed responses, seems unsure. CN: CN II, III - VF full to motion, PERRLA, suspect profound visual acuity deficit, but did quantifywith bedside Snellen chart. CN III, IV, - EOMI without nystagmus, no ptosis CN V - Facial sensation intact CN VII - Face symmetric CN VIII - Hearing intact to voice/finger rub CN IX, X, XII - symmetric palate elevation, tongue midline CN XI - SCM, trap strength intact Motor: Bulk: No focal atrophy noted Tone: Normal throughout Abnormal movements: None observed Fine motor: intact, no bradykinesia Strength: BUE / BLE 5/5 Sensory: Symmetrically intact to light touch throughout confuses Left vs Right Reflexes: 2+/4 Throughout Clonus: Not assessed this morning Coordination: FNF with moderate bilateral intention tremor Gait: Deferred Labs: Recent Results (from the past 24 hour(s)) Potassium Result Value Ref Range Potassium 3.2 (L) 3.5 - 5.0 mmol/L Troponin Result Value Ref Range Troponin-T 0.06 (H) 0.00 - 0.00 ng/mL TSH Result Value Ref Range TSH 3.14 0.27 - 4.20 mcIU/mL T4, free Result Value Ref Range Free T4 1.30 0.93 - 1.70 ng/dL Potassium Result Value Ref Range Potassium 3.1 (L) 3.5 - 5.0 mmol/L Rapid Drug Screen, Urine (CAITLIN Request) Result Value Ref Range CAITLIN Conf Requested No CAITLIN Requested See Comment Rapid Drug Screen w/o Confirmation, Urine Result Value Ref Range U Barbiturates Screen None Detected None Detected U Benzodiazepines Screen None Detected None Detected U Cocaine Screen None Detected None Detected U Methadone Metabolites Screen None Detected None Detected U Opiate Screen None Detected None Detected U Cannabinoid Screen None Detected None Detected U Oxycodone Screen None Detected None Detected U Buprenorphine Screen None Detected None Detected U Fentanyl Screen None Detected None Detected U Tricyclics Screen None Detected None Detected U Ethanol Screen None Detected None Detected U Amphetamines Screen None Detected None Detected U Adulterants Screen None Detected None Detected Magnesium Result Value Ref Range Magnesium 0.76 0.69 - 1.07 mmol/L Phosphorus Result Value Ref Range Phosphorus 3.2 2.5 - 4.5 mg/dL Basic Metabolic Panel (non-fasting) Result Value Ref Range Glucose Lvl 120 65 - 199 mg/dL BUN 17 10 - 20 mg/dL Creatinine 1.68 (H) 0.80 - 1.50 mg/dL Sodium 141 135 - 145 mmol/L Potassium 3.1 (L) 3.5 - 5.0 mmol/L Chloride 109 (H) 98 - 107 mmol/L CO2 21 (L) 22 - 31 mmol/L Anion Gap 11 5 - 15 mmol/L Calcium 8.7 8.5 - 10.5 mg/dL Estimated GFR 47 (L) >=60 mL/min/1.73 m?? Hemogram Result Value Ref Range WBC 9.8 (H) 4.0 - 9.5 x10(3)/mcL RBC 4.01 (L) 4.58 - 5.54 x10(6)/mcL Hemoglobin 12.1 (L) 13.7 - 16.5 g/dL Hematocrit 34.8 (L) 40.5 - 48.5 % MCV 86.8 82.9 - 93.1 fL MCH 30.2 27.5 - 32.1 pg MCHC 34.8 32.0 - 35.7 g/dL Platelets 206 145 - 357 x10(3)/mcL RDWSD 41.6 36.0 - 45.0 fL RDWCV 13.3 11.4 - 13.8 % MPV 10.0 7.6 - 12.9 fL nRBC % Auto 0.0 % nRBC Abs Auto 0.000 0.000 - 0.000 x10(3)/mcL Differential, Automated Result Value Ref Range Neutrophils % 73.4 % Neutr Abs (ANC) 7.19 (H) 1.70 - 6.10 x10(3)/mcL Lymphocytes % 15.2 % Lymphocytes Abs 1.5 0.9 - 3.2 x10(3)/mcL Monocytes % 7.6 % Monocyte Abs 0.7 0.3 - 0.9 x10(3)/mcL Eosinophils % 2.8 % Eosinophils Abs 0.3 0.0 - 0.4 x10(3)/mcL Basophils % 0.6 % Basophils Abs 0.1 0.0 - 0.1 x10(3)/mcL Immature Gran % 0.40 % [place] Gran Abs 0.04 0.00 - 0.04 x10(3)/mcL Diagnostic Tests and Imaging: MRI Brain wwo Contrast (Generic) Final Result 1. Extensive leukoaraiosis. 2. Extensive, largely nonenhancing, signal abnormality within the bilateral thalami. There is no decreased diffusion. Differential diagnosis includes sequela of old ischemia, vasogenic edema related to the sites of hemorrhage, and, less commonly, a toxic or metabolic disorder. 3. Innumerable small foci of intracerebral hemorrhage in a pattern consistent with long-standing hypertension. An additional component related to amyloid angiopathy cannot be excluded. 4. Numerous small foci of acute or subacute infarction scattered in the bilateral cerebral hemispheres Thank you for letting us participate in the care of this patient. If you are a health care provider and have any questions regarding this report, please contact the number below. For patients who have questions please contact the health animal care provider that requested your imaging first. Electronically signed by: Bret Calvert MD, [facility] ([phone]), at 04/06/2022 12:03 PM MRI Angiogram Head wo Contrast (Generic) Final Result No site of more than mild intracranial stenosis. Thank you for letting us participate in the care of this patient. If you are a health care provider and have any questions regarding this report, please contact the number below. For patients who have questions please contact the health animal care provider that requested your imaging first. Electronically signed by: Bret Calvert MD, [facility] ([phone]), at 04/06/2022 12:[address] Head wo Contrast (Generic) Final Result Areas of hypoattenuation within the bilateral thalami most likely representing ischemic infarction. Differential diagnosis includes vasogenic edema about sites of hemorrhage but the areas of hypoattenuation are large relative to the sites of hemorrhage, the hypoattenuation is sharply marginated, and there is little mass effect. The sites of high attenuation material within each of these areas, likely hemorrhage, are unchanged. Extensive inflammatory changes of the paranasal sinuses. Thank you for letting us participate in the care of this patient. If you are a health care provider and have any questions regarding this report, please contact the number below. For patients who have questions please contact the health animal care provider that requested your imaging first. Electronically signed by: Bret Calvert MD, [facility] ([phone]), at 04/05/2022 6:55 PM Assessment/Plan: Denilson Go is a 56 y.o. male with PMHx of HTN, non-compliant with home meds (lisinopril 40mg,HCTZ) due to lack of access to PCP, presenting with bilateral thalamic hemorrhage. 04/07/2022: Denilson's presentation of florid hypertension, headache, nausea, vomiting, acute kidney injury and troponinemia is most consistent with PRES. We will continue aggressive blood pressure control today with the goal of eliminating parentral BP controlling medications. Continue to follow renal fu nction closely, will continue ANAT-I but may discontinue if concern or prolonged renal insult. Will consult ophthalmology given other evidence of significant end organ damage. # Bilateral thalami intraparenchymal hemorrhages with bilateral vasogenic cerebral edema, and diffuse petechial hemorrhages, Suspect underlying severe PRES # Essential Hypertension - Continue step-down status - NC/VS Q4H / Q2H - MRI with innumerable small foci of cerebral hemorrhage, bilateral thalamic IPH, symmetric posterior white matter hyperintensity, extending into BG and brainstem. - MRA without significant stenosis of intracerebral vessels - NOTE : No neck vascular imaging performed yet. -SBP goal <160, dBP goal <100 - continue nicard gtt, PRNs available, start with labetalol - lisinopril 20mg qd - Begin Labetalol 100 mg POD BID - TTE pending - troponin peak at 0,06, d/c trend - Begin DVT ppx with SQH given Cr -f/u UDS, random aldosterone, TSH/T4free -renal duplex - End organ damage, unable to obtain arterial duplex studies -Opthalmology consulted, awaiting recommendations #Acute Kidney Injury - Caution with continuing lisinopril - Slow reduction in SBP to avoid renal hypoperfusion - Continue to monitor Cr, electrolytes - Renal duplex without MELVIN # Troponinemia - Troponin stabilized - No active chest pain, continue to monitor # Decreased Visual Acuity in the Setting of Profound Hypertension and End-Organ Damage - Ophthalmology consult - Blood pressure control as described above # Acute Urinary Rentention - Begin Tamsulosin 0.8 mg PO Daily # Routine/PPX - PT/OT/NEEDLE GRADER - Activity: up with assistance - VTE ppx: SCDs - RBOs: Senna/docusate, bisocodyl prn - Diet: Daily Healthy Menu Choices/Cardiac diet ([facility]-Diet) - Dispo: Pending course - Code: Attempt Cardiopulmonary Resuscitation - Inpatient Marc Norris MD Neurology, PGY-2 Vascular Neurology Service #[id number] 04/07/2022 Balta Fontenot - 04/07/2022 7:49 AM EDTSummary: PN Neurology Daily Progress Note - 04/07/2022 Patient Name: Denilson Go Admit Date: 04/05/2022 Attending: Luther Purdy MD ID: 54 yo m PMH uncontrolled HTN (not on meds) presented to from OSH with bilateral Thalamic Hemorrhage from OSH. 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 Subjective/24h Events - NAEON - reports blurry vision has improved - Patient denies GARCIA NVD, weakness. - Says he gets confused easily. - No other complaints at this time. Per Nursing - NEURO unchanged - NSR nicard BP Resp - o2 RA Abdomen S/ND PER OT ? Visual smith: intact to confrontation testing ? Spatial awareness: impaired, maximal cues to scan environment ? Decreased visual acuity ? Decreased ability to scan environment ? Difficulty seeing things positioned directly in front of him (lunch tray), maximal assist/cues to scan to find items ? Unable to bisect lines despite maximal cues ? Would benefit from opthalmology evaluation Medications: Scheduled Meds: ??? nicotine 1 patch Transdermal Daily And ??? Patch Verification 1 patch Transdermal BID And ??? nicotine 1 patch Transdermal Daily ??? lisinopriL 20 mg Oral Daily ??? senna-docusate 2 tablet Oral BID ??? polyethylene glycoL (MIRALAX) oral powder 17 g Oral Daily Continuous Infusions: ??? niCARdipine 15 mg/hr (04/07/22 0605) PRN Meds:.sodium chloride 0.9 % (flush), labetaloL, enalaprilat, magnesium hydroxide, bisacodyL, acetaminophen OR acetaminophen OR acetaminophen, hydrALAZINE Physical Exam: Last value Range last 24 hrs Temperature Temp: 36.7 ??C (98.1 ??F) Temp: [36.7 ??C (98.1 ??F)-36.9 ??C (98.4 ??F)] Heart Rate Heart Rate: 81 Heart Rate: [66-91] Blood Pressure BP: 158/82 BP: (126-168)/(67-121) Respiratory Rate Resp: 21 Resp: [14-28] SpO2 SpO2: 96 % SpO2: [92 %-100 %] Intake/Output Summary (Last 24 hours) at 04/07/2022 0749 Last data filed at 04/07/2022 0634 Gross per 24 hour Intake 4149.9 ml Output 2225 ml Net 1924.9 ml Patient Vitals for the past 168 hrs: Weight 04/06/22 0615 114.2 kg (251 lb 12.3 oz) Labs: Recent Labs 04/07/22 0430 04/06/22 0415 WBC 9.8* 12.6* HGB 12.1* 11.9* HCT 34.8* 32.8* PLATELET 206 178 MCV 86.8 85.0 Recent Labs 04/07/22 0430 04/06/22 1800 04/06/22 1010 04/06/22 0415 NA 141 -- -- 139 CL 109* -- -- 102 CO2 21* -- -- 23 K 3.1* 3.1* 3.2* 2.9* MAGNESIUM 0.76 -- -- 0.79 PHOS 3.2 -- -- 3.7 CALCIUM 8.7 -- -- 8.8 BUN 17 -- -- 28* CREATININE 1.68* -- -- 1.99* LFTs Recent Labs 04/05/22 1535 PROT 7.3 ALBUMIN 4.1 AST 32 ALT 37 ALKPHOS 65 BILITOT 1.3 BILIDIR 0.6* Coags Recent Labs 04/05/22 1535 INR 1.2 PT 13.2* PTT 31 Cardiac Enzymes Recent Labs 04/06/22 1010 04/06/22 0415 04/05/22 2239 04/05/22 1535 TROPONINT 0.06* 0.06* 0.04* 0.02* Endocrine Recent Labs 04/06/22 1435 04/05/22 1535 TSH 3.14 2.20 Recent Labs 04/05/22 2052 04/05/22 1548 POCGLU 144 138 Drug Screen Latest Reference Range & Units 04/07/22 01:18 CAITLIN Conf Requested No (C) U Barbiturates Screen None Detected None Detected U Benzodiazepines Screen None Detected None Detected U Cocaine Screen None Detected None Detected U Methadone Metabolites Screen None Detected None Detected U Opiate Screen None Detected None Detected U Cannabinoid Screen None Detected None Detected U Oxycodone Screen None Detected None Detected U Buprenorphine Screen None Detected None Detected U Fentanyl Screen None Detected None Detected U Tricyclics Screen None Detected None Detected U Ethanol Screen None Detected None Detected U Amphetamines Screen None Detected None Detected U Adulterants Screen None Detected None Detected (C): Corrected Micro Microbiology Results (Last 30 days) No results found for the last 720 hours. Imaging: Results for orders placed or performed during the hospital encounter of 04/05/22 MRI Brain wwo Contrast (Generic) (Exam End: 04/06/2022 9:42 AM) Impression 1. Extensive leukoaraiosis. 2. Extensive, largely nonenhancing, signal abnormality within the bilateral thalami. There is no decreased diffusion. Differential diagnosis includes sequela of old ischemia, vasogenic edema related to the sites of hemorrhage, and, less commonly, a toxic or metabolic disorder. 3. Innumerable small foci of intracerebral hemorrhage in a pattern consistent with long-standing hypertension. An additional component related to amyloid angiopathy cannot be excluded. 4. Numerous small foci of acute or subacute infarction scattered in the bilateral cerebral hemispheres Thank you for letting us participate in the care of this patient. If you are a health care provider and have any questions regarding this report, please contact the number below. For patients who have questions please contact the health animal care provider that requested your imaging first. Electronically signed by: Bret Calvert MD, [facility] ([phone]), at 04/06/2022 12:[address] Head wo Contrast (Generic) (Exam End: 04/05/2022 6:39 PM) Impression Areas of hypoattenuation within the bilateral thalami most likely representing ischemic infarction. Differential diagnosis includes vasogenic edema about sites of hemorrhage but the areas of hypoattenuation are large relative to the sites of hemorrhage, the hypoattenuation is sharply marginated, and there is little mass effect. The sites of high attenuation material within each of these areas, likely hemorrhage, are unchanged. Extensive inflammatory changes of the paranasal sinuses. Thank you for letting us participate in the care of this patient. If you are a health care provider and have any questions regarding this report, please contact the number below. For patients who have questions please contact the health animal care provider that requested your imaging first. Angiogram Head wo Contrast (Generic) (Exam End: 04/06/2022 9:42 AM) Impression No site of more than mild intracranial stenosis. Thank you for letting us participate in the care of this patient. If you are a health care provider and have any questions regarding this report, please contact the number below. For patients who have questions please contact the health animal care provider that requested your imaging first. Renal US Interpretation: ?? Right: Doppler waveforms are consistent with abnormally elevated parenchymal resistance. Main renal artery not visualized due to abdominal gas, cannot exclude a stenosis. ?? Left: Doppler waveforms are consistent with abnormally elevated parenchymal resistance. Main renal artery not visualized due to abdominal gas, cannot exclude a stenosis. ?? Comparison: ??No previous study in our vascular lab database for comparison. ?? TTE PENDING Physical Exam General: alert, in NAD oriented to person place time, unable to state monika back/ PADDY HEENT: Sclera anicteric, conjunctiva nl, EOMI, no lesions noted. NC/AT Lung: Normal WOB Abd: ND. Skin: No suspicious rashes or lesions Neuro Exam: MS: Awake, alert, oriented to person, place, time, situation No dysarthria, language fluent, cooperative with neuro exam co CN: R pupil mildly dilated, EOMI, visual smith full, able to read menu Facial sensation intact to light touch, No facial asymmetry Hearing intact to voice Palate elevates symmetrically, tongue protrudes midline SCM and trap strength intact Motor: Normal bulk and tone. 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 male with PMHx of HTN, non-compliant with home meds (lisinopril 40mg,HCTZ) due to lack of access to PCP, presenting with bilateral thalamic hemorrhage. 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 ?? Stable elevated blood pressure on Nicard and Lisinopril. Continues to have confusion and difficulty tracking. Suspect Hypertensive emergency. Current UDS (NEG)/TSH (3.14)/ CLIFFORD unclear as to secondary cause of HTN. Still pending aldosterone. Will be consulting ophthalmology. ?? 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 #Diffuse small acute vs subacute infarcts of bilateral cerebral hemispheres #HTN - NC/VS Q2H - MRI with innumerable small foci of cerebral hemorrhage and abnormal signal in b/l thalami - MRA without significant stenosis of intracerebral vessels -SBP goal <160, dBP goal <100 - continue nicard gtt, PRNs available, start with labetalol - CONT lisinopril 20mg qd - ADD Labetalol 100 mg will uptitrate to BID as tolerated - Consider Carotid Duplex/MRA/CTA Neck - PENDING TTE - START Lovenox DVT PPX - troponin peak at 0,06, d/c trend - PEND random aldosterone -renal duplex US cannot r/o stenosis -ADD opthalmology consult ?? #MARY Downtrending 1.99 to 1.68. Will CTM. # Routine/PPX - PT/OT - Activity: up with assistance - VTE ppx: SCDs - RBOs: Senna/docusate, bisocodyl prn - Diet: Daily Healthy Menu Choices/Cardiac diet ([facility]-Diet) - Dispo: Pending course - Code: Attempt Cardiopulmonary Resuscitation - #Other Diet: Normal DVT ppx: Restart KEL/SQH Dispo: Pend Code Status: Full Balta Fontenot MS4 Pebbles Kellogg RN - 04/06/2022 11:03 PM EDT NCCU Progress Note Neuro: Neuro exam remains unchanged this shift. A&Ox4, able to make needs known, calm and cooperative with care. Able to follow commands, moves all extremities; 5/5 strength throughout, PERRLA, denies numbness and tingling. Cardiovascular: Cardiac monitoring continues. Tele tracing show NSR primarily in the 70's-80's. Nicard gtt remains maxed at 15 to maintain SBP<160. +pulses, some mild/trace dependent/generalized edema present. Afebrile. Respiratory: No respiratory distress, able to maintain O2 Sats >92% on Room Air. Lung sounds clear/dim upon auscultation. Able to cough and deep breath independently. GI: Abdomen rounded, non-distended, +BSx4. Cardiac Diet, PO intake picked up for dinner, with hopes that it will be better today. Denies Nausea, Vomiting, Diarrhea. Last BM prior to admission, declinedscheduled senna this evening. : Urinal at bedside, unable to void spontaneously; Straight cathed for 950cc, bladder scans done Q6h Skin: Intact. Patient able to reposition in bed independently. Access: #18 PIV Right AC, patent with active infusions, and #18 PIV Left AC patent, saline lock withblood return Plan of Care: Q4h Neuro checks SBP <160 Encourage PO intake Duplex Study Bilateral Renal arteries ECHO PT/OT D/C planning Vitals Flowsheet Row Admission (Current) from 04/05/2022 in Neuro Critical Care Unit - [address] [place] [address] Weight 114.2 kg (251 lb 12.3 oz) Height 180.3 cm (5' 10.98) Temp 36.9 ??C (98.4 ??F) Temp src Oral Heart Rate 66 Heart Rate from SpO2 66 bpm Heart Rate Source Monitor Resp 17 BP 134/80 Patient Position Lying SpO2 94 % Kimi Thompson, PT - 04/06/2022 6:17 PM EDT Physical Therapy Evaluation Patient profile: Denilson Go??is a 56 y.o.??male??with PMHx of HTN,??non- compliant with home meds (lisinopril 40mg, HCTZ) due to lack of access to PCP, presenting with bilateral thalamic hemorrhage. ?? Transferred to the NCCU after achieving adequate blood pressure control. ??He remains somewhat confused with cognitive difficulties, likely in the setting of innumerable small infarcts seen on MRI. ??He also may be having cognitive challenges due to hypertensive encephalopathy, which may improve somewhat with continued blood pressure control. ??We will continue his nicardipine drip with a goal BP of 160/90 as we eventually transition to oral antihypertensives. ??Will obtain renal duplex, TSH, UDS, aldosterone level to assess for secondary causes of hypertension. ??Although, his hypertension is in the setting of noncompliance with his home antihypertensives and this is likely the etiology of his cerebral findings. He also has evidence of??other??organ damage consistent with hypertensive injury including proteinuria, elevated creatinine, poor visual acuity.?Will consider ophthalmology consult early this week to better assess for retinopathy, which he likely has. Patient with the following active problems: Past Medical History: Diagnosis Date ??? HTN (hypertension) No past surgical history on file. Active Non-Hospital Problems Diagnosis ??? Rib fracture Social History: Pt lives with his sister & ANTONY in [place], [place] ? Home Set-Up: Pt lives on basement level with one step to enter and ramp up to family room ? 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 DME: None ? Falls: None Baseline Mobility: fully indep, amb without ad Equipment at home: none Fall history: denies Precautions/Special Considerations: fall risk, SBP <170 Mobility and Positioning Recommendations: ?? Pt. to utilize RW and Ax2 for ambulation and transfers with nursing. ?? Please encourage up to chair for meal times as able. ?? Pt encouraged to ambulate frequently with staff, getting into the bathroom for toileting and walking out in the garcia >/= 3 times daily as able. Subjective: ???Im not sure. I really dont know.?? Yup, you are really pushy Objective: Pt seen for evaluation today. Pain: denies Vital Signs: HR 80s, SpO2 >98% on RA BP: 158/78 Mental Status: drowsy and oriented to self and location, needed cues for year Vision: apparent field cuts though difficult to asses 2' limited cognition. ? Cut at 10 - 11 L and 1-2 R. Will need further formal assessment Skin: grossly intact Musculoskeletal: ROM: grossly wfl Strength: R 3-/5; L 4/5 Sensation: intact to LT Bed Mobility: Supine to Sit: min A to R Sit to Supine: nt, pt remained up in chair after rx Transfers: Sit to Stand: cga - min A w RW Stand to Sit: min A to control descent Bed to Chair: min - Mod A w RW and cues for attention to task. ? Motor control deficit vs. fatigue Gait: Distance: 5' Device used: RW Level of assist: Min - mod A Gait mechanics: step to, intermittent scissoring, variable step length and JENNY Stairs: nt Balance: Sitting Static: fair Sitting Dynamic: fair -, retropulsive w resistance Standing Static: fair Standing Dynamic / Gait: poor Education: patient has been educated on Bed mobility, Transfers, Assistive device/technique, Positioning, Safety , Precautions/protocol, Equipment use, Gait , Activity pacing/Energy conservation, Role of therapy, Balance and Discharge planning and verbalizes and needs reinforcement. understanding. Patient status, treatment, and mobility recommendations discussed with nursing. Assessment: Denilson Go was seen today for physical therapy evaluation. Pt presents to PT w impaired strength, endurance, balance, posture, cognition, with resultant functional limitations in allassessed areas of mobility. Pt was pleasant and appropriate t.o rx despite obvious significant fatigue and will benefit from ongoing skilled PT rx to facilitate max functional gains. Based on current functional status, would highly recommend inpt acute rehab at time of hospital dc to maximize potential for recovery The pt would benefit from skilled therapy services while in the hospital to maximize functional abilities. Discharge Recommendations: Based on the current findings, Anticipated Discharge Disposition (PT): to be determined pending medical status & functional progression when medically ready for hospital discharge. Consult Recommendations: No other consults recommended at this time. Equipment needs: Anticipated Equipment Needs at Discharge (PT): to be determined Goals: To be achieved by 04/14/22: 1. Pt. to demonstrate knowledge of safety limitations and precautions and will appropriately requestassistance for functional activities and to mobilize. 2. Pt. to demonstrate understanding of appropriate HEP. 3. Pt. to perform bed mobility with modified independence. 4. Pt. to perform sit to stand transfers with modified independence using a front wheeled walker 5. Pt. to ambulate 150 feet with modified independence using a a front wheeled walker. 6. Pt. to ambulate up/down 1 step/stairs using one rail with supervision. 7. Family or caregiver to demonstrate understanding of therapeutic interventions to support the careof the patient. 8. Pt will tolerate progression towards upright with stable vital signs. Plan: Therapy Frequency (PT): 3-5 times/wk for therapy including balance training, bed mobility training, gait training, motor coordination training, neuromuscular re-education, patient/family education, postural re-education, stair training, stretching, transfer training and wheelchair managment/propu lsion training. Patient/family understand and agree with plan as stated above. PT Evaluation Code Rationale: ?? Diagnosis & Pertinent Co-Morbidities, personal factors, and present illness affecting Plan ofCare: (see above); Additional personal factors or co- morbidities that impact plan: ?? Total # of Factors: 0 1-2 3+ x ?? Examination of body system impairments, functional limitations and behaviors, and/or participation restrictions. Addressing 1-2 elements Addressing 3 + elements Addressing 4 + elements x ?? Clinical presentation: See assessment above. Stable/Uncomplicated Evolving/Fluctuating Symptoms Unstable/Unpredictable x ?? Clinical decision making of moderate complexity based on pt's functional performance as outlined in this evaluation. Time IN / OUT: 1245 - 1320 Total Minutes, Physical Therapy: 35 Billing Code: IE Erna KIMI THOMPSON, PT Pager: [phone] Physical Therapy Inpatient Rehabilitation Department Kendra Kingsley, OT - 04/06/2022 2:44 PM EDT Occupational Therapy Evaluation Patient Profile: Brigette Go is a 56 y.o. male with PMHx of HTN, non- compliant with home meds(lisinopril 40mg, HCTZ) due to lack of access to PCP, presenting with bilateral thalamic hemorrhage. ?? Denilson is being transferred down from the NCCU after achieving adequate blood pressure control. He remains somewhat confused with cognitive difficulties, likely in the setting of innumerable small infarcts seen on MRI. He also may be having cognitive challenges due to hypertensive encephalopathy, which may improve somewhat with continued blood pressure control. We will continue his nicardipine drip with a goal BP of 160/90 as we eventually transition to oral antihypertensives. Will obtain renal duplex, TSH, UDS, aldosterone level to assess for secondary causes of hypertension. Although, his hypertension is in the setting of noncompliance with his home antihypertensives and this is likely the etiology of his cerebral findings. He also has evidence of other organ damage consistent with hypertensive injury including proteinuria, elevated creatinine, poor visual acuity. Will consider ophthalmology consult early this week to better assess for retinopathy, which he likely has. 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 Vital Signs: o HR: 81 bpm o SpO2: 94% on RA o BP: 157/86 mmHg Pain: no c/o pain Skin: intact Cognitive Status/Behavior: o Behavior / Mood: alert, cooperative, confused, impaired task initiation, lethargic and flat affect o Alert and oriented to: person o Follows commands: 1 step, 2 step, 50% of the time, requires increased time and requires repetition o Attention: difficulty attending to task/directions and requires cues to redirect o Safety awareness: decreased insight into deficits o Slow processing o Clock drawing - made a fairly symmetrical [place] positioned on L side of page and then was unable to write numbers in clock (make random lane inside the [place]) Vision & Perception: o visual/perceptual impairments present, difficulty to assess d/ inconsistent command following, pt's family reports baseline visual deficits and stated that pt would often bump into/run over objects directly in front of him o Visual smith: intact to confrontation testing o Spatial awareness: impaired, maximal cues to scan environment o Decreased visual acuity o Decreased ability to scan environment o Difficulty seeing things positioned directly in front of him (lunch tray), maximal assist/cues to scan to find items o Unable to bisect lines despite maximal cues o Would benefit from opthalmology evaluation Communication/Hearing: o Hearing WFL bilaterally Musculoskeletal: o Hand dominance: left o ROM: B UE & LE grossly functional o Strength: B UE & LE grossly functional o Impaired postural control, frequent LOB posteriorly o Sensation: intact to LT o Coordination: impaired, + dysmetria Activities of Daily Living: o Self-feeding: set up A and maximal cues for scanning tray o Grooming: set up A and cues o Dressing: maximal A to don socks and hospital gown o Bathing: not tested o Toileting: not tested, anticipate moderate A transfer & cues for hygiene Functional Mobility: o Supine <> Sit: minimal A towards R o Frequent posterior LOB while seated EOB o Poor dynamic sitting balance o Fair static sitting balance o Sit <> Stand: cgA x 2 with walker o Transfers: minimal A x 2 with walker, cues for spatial awareness and safety o Ambulation: minimal A x 2 with walker, cues for spatial awareness and safety Balance: o Sitting Static: fair o Sitting Dynamic: poor o Standing Static: fair with walker o Standing Dynamic / Gait: fair with walker Endurance: fatigues quickly Education: Patient has been educated on Role of occupational therapy and rehabilitation, Transfers, ADL's, Positioning, Safety, Functional Mobility, Activity pacing/Energy conservation training, Balance, DME Recommendations, Safe ROM/Exercise, and Discharge planning. Patient verbalized understanding. Patient status, treatment, and activity/mobility recommendations discussed with nursing. Assessment: Pt has been seen for occupational therapy evaluation. Denilson Go presents with the following performance skill deficits and client factors: decreased activity tolerance, decreased sitting/standing balance, visual deficits, cognitive deficits, decreased postural control, deconditioning and compromised mobility status. These performance deficits have led to activity limitations and participation restrictions in the following areas of occupation: dressing, bathing, grooming, toileting, self-feeding, transfers/mobility, home management, work, leisure and community mobility. Pt with significant visual perceptual deficits including spatial awareness, scanning, depth perception, and acuity. Difficulty fully assessing d/t impaired ability to follow commands. Pt will benefit from ophthalmology consult. Pt benefits from verbal cues and physical assist for safety during functional mobility and ADL participation at this time. He will benefit from acute rehabilitation to maximize independence but may progress to discharge home with 23/03 supervision/assist from family. Pt would benefit from further inpatient OT interventions to address performance deficits and maximize participation and independence with occupations of daily living. Equipment needs at discharge: walker Anticipated Discharge Disposition (OT): acute rehabilitation facility Activity Recommendations: ?? Promote normalcy by encouraging participation in common daily tasks & leisure activities by providing set up assist ?? Encourage use of coping & calming strategies ?? Give choices when possible to support feelings of autonomy ?? Frequent orientation verbally & visually ?? Keep glasses, hearing aides, cell phones, tablets, etc within reach ?? Facilitate a normal sleep-wake cycle ?? Provide brief, clear instruction from one source at a time ?? Reduce extraneous stimulation ?? Provide calming music, favorite TV programs, magazines or newspapers ?? Bathroom or commode for toileting needs vs. Using urinal & bed polk ?? Utilize upright chair position using bed features or transfer to recliner chair as appropriate with 2A and walker Goals: To be achieved by 04/19/22 Patient will complete toilet transfer, hygiene, and hand washing with supervision and minimal verbalcues Patient will complete standing grooming tasks at sink with set up, supervision, and minimal verbal cues Patient will ambulate functional household distances to bathroom & kitchenette with supervision and verbal cues Patient will don/doff UB & LB clothing sitting EOB or upright in chair with set up A Patient will follow 3/3 two step commands consistently Patient will attend to functional task for 10 mins with minimal verbal cues OT: Therapy Frequency (OT): 2-3 times/wk Planned OT interventions: Role of occupational therapy/rehabilitation, Transfers, Assistive device/technique, Adaptive equipment training, ADL, Exercise, Breathing exercises, Positioning, Safety, Precautions/Protocol, Brace Management, Car Transfers, Functional Mobility, Activity pacing/Energy conserva tion, Home Program, Home Management, Balance, Recommendations, Family training, and Discharge planning. 2017 OT Evaluation Code Rationale: Diagnosis & Pertinent Co-Morbidities affecting Plan of Care: see PMHx Occupational Profile & Client History: Brief Expanded Extensive x Assessment of Occupational Performance: 1-3 performance deficits 3-5 performance deficits 5 + performance deficits x Clinical Decision Making: Low Moderate High x Clinical decision making of high complexity using standardized patient assessment instrument and measurable assessment of functional outcome. 35 minutes; evaluation Sita Kingsley OT #[id number] Adamaris Colindres RN - 04/06/2022 6:47 AM EDT Pt continues to be difficult to orient to time , and delayed in answering personal questions. Discussed c providers will cont to Monitor MRI this am. Adamaris Colindres RN - 04/06/2022 4:28 AM EDT Am labs drawn at this time. Pt woke for neuro exam pt alert to self , place c direction, and situation. Pt disoriented to time thinks it 1991 and laureen is president. Discussed c iwona rodriguez. Pt has been asleep for less than 2 hrs tonight due to family , procedures , medis, and lab draws. Pt reports he feels better just very tired. Will reassess neuro status at 0600 Adamaris Colindres RN - 04/05/2022 7:56 PM EDT 1920 rcvd pt , neuro intact 5 in all ext. Assisted to side of bed attempted to void c no results at this time. Systolic bp 165 c cardene @ 15 at this time. Pt denies pain reports headache and blurred vision have improved. 2014 systolic 172 discussed ordered mri c vp of technology will do tomorrow morning . Paged geovani pa to notified. 2019 michelle rodriguez at bedside to review pt chart and address htn. 2029 family at bedside multiple questions. Pt education on htn crisis and goals . Order rcvd for hydralizine awaiting pharmacy to verify. Adamaris Colindres RN - 04/05/2022 2:16 AM EDT 2000 stood pt at bedside to void x 1 assist. No urge to void 2300 bladder scan 371 cc pt continues to deny urge multiple family members at bedside for extended periods of time. Pt unsure of his last time to void. Pt continues to deny need to void. 0200 pt assisted oob to attempt to void per maurisio maravilla. Pt unable to stand assisted back to bed and voiding attempted. Unable to void at this time. Bladder scan shows 781 discussed c iwona rodriguez . In and out cath done at this time using bacteriology technician 700 cc urine return noted. ua / culture sent to lab per orders. ivet maravilla. documented in this encounter H&P Notes Luther Purdy MD - 04/06/2022 12:29 PM EDT Neurology Admission History and Physical - 04/06/2022 Patient name: Denilson Go Date of : 1965 PCP: None Attending: Jak Bolivar MD CC: headache, thalamic ICH HPI: Denilson Go is a 56 y.o. male with PMHx of HTN, non-compliant with home meds (lisinopril 40mg,HCTZ) due to lack of access to PCP, presenting with bilateral thalamic hemorrhage. Pt initially presented to Urgent Care with several days of GARCIA, N, V, blurred vision, [facility] the 260's where thalamic hemorrhages (R>L) were revealed. Pt was started on nicardipine drip, and transferred to [facility] for further care. En route pt was given 1g of Keppra per DHART. Labs significant for initially rising but plateaued troponin (0.02 -> 0.04 -> 0.06 -> 0.06)without ischemic EKG changes. UA w/ 100 protein, >100 RBC. WBC 12.6, Hgb 11.9, Na 139, K 2.9 -> 3.2, Cr 1.99 (baseline ~1) CT with likely hemorrhage within bilateral thalami with areas of surrounding vasogenic edema withoutsignificant mass effect. F/u MRI read pending During his short NCCU course, his BP has been persistently elevated despite max dose nicard and PRN labetolol, hydralazine. However it is stably <160 sBP. His headache has resolved as well as no further reports of nausea or vomiting. His sister reports that his vision is worse than usual during my [facility] test with pocket snellen chart. He denies blurry vision when given his glasses. He denies diplopia, fever, pain. Review of Systems: Negative except as documented in the HPI. Past Medical History: Past Medical History: Diagnosis Date ??? HTN (hypertension) Medications: Current Facility-Administered Medications Medication Dose Route Frequency Provider Last Rate Last Admin ??? nicotine (Nicoderm CQ) 14 mg/24 hr patch 14 mg 1 patch Transdermal Daily Flowre Pretty PA And ??? nicotine (NICODERM CQ) 14 mg/24 hr patch Patch Verification 1 patch Transdermal BID Flower Pretty PA And ??? [START ON 04/07/2022] nicotine (NICODERM CQ) 14 mg/24 hr patch Patch Removal 1 patch Transdermal Daily Flower Pretty PA ??? potassium chloride 10 mEq in sterile water 100 mL infusion 10 mEq Intravenous Q1H PRN Flower Pretty PA Or ??? potassium chloride 10 mEq in sterile water 100 mL infusion 10 mEq Intravenous Q1H PRN Flower Pretty PA Or ??? potassium chloride 10 mEq in sterile water 100 mL infusion 10 mEq Intravenous Q1H PRN Flower Pretty PA ??? lisinopriL (Zestril) tablet 20 mg 20 mg Oral Daily Flower Pretty PA 20 mg at 04/06/22 0824 ??? sodium chloride 0.9 % (flush) (BD PosiFlush Normal Saline 0.9) flush 5-20 mL 5-20 mL IntravenousQ1 Min PRN Jammie Kulkarni APRN ??? lidocaine (Xylocaine) 1% (10 mg/mL) injection 3 mg 0.3 mL Subcutaneous Once PRN Jammie Kulkarni APRN ??? labetaloL (Normodyne) (5 mg/mL) injection solution 10-20 mg 10-20 mg Intravenous Q15 Min PRN Jammie Kulkarni APRN 10 mg at 04/06/22 0307 ??? enalaprilat (Vasotec) (1.25 mg/mL) injection 1.25 mg 1.25 mg Intravenous Q6H PRN Jammie Kulkarni APRN 1.25 mg at 04/05/22 1701 ??? niCARdipine (Cardene) (0.2 mg/mL) in sodium chloride 200 mL infusion 0-15 mg/hr Intravenous Continuous Jammie Kulkarni APRN 75 mL/hr at 04/06/22 1219 15 mg/hr at 04/06/22 1219 ??? senna-docusate (Pericolace) 8.6-50 mg per tablet 2 tablet 2 tablet Oral BID Jammie Kulkarni APRN 2 tablet at 04/06/22 0824 ??? polyethylene glycoL (Miralax) packet 17 g 17 g Oral Daily Jammie Kulkarni APRN ??? magnesium hydroxide (Milk of Magnesia) (240 mg/mL) oral liquid 10 mL 10 mL Oral Nightly PRN Jammie Kulkarni APRN ??? bisacodyL (Dulcolax) suppository 10 mg 10 mg Rectal Daily PRN Jammie Kulkarni APRN ??? acetaminophen (Tylenol) tablet 975 mg 975 mg Oral Q6H PRN Jammie Kulkarni APRN Or ??? acetaminophen (Tylenol) (32.02 mg/mL) oral liquid 975 mg 975 mg Per G Tube Q6H PRN Lidya Kulkarni APRN Or ??? acetaminophen (Tylenol) suppository 975 mg 975 mg Rectal Q6H PRN Jammie Kulkarni APRN ??? sodium chloride 0.9% infusion 1,000 mL Intravenous Continuous Jammie Kulkarni APRN 100 mL/hr at04/06/22 0108 1,000 mL at 04/06/22 0108 ??? hydrALAZINE (Apresoline) (20 mg/mL) injection 10 mg 10 mg Intravenous Q4H PRN Michelle Garcia PA10 mg at 04/06/22 0545 No Known Allergies Family History Problem Relation Age of Onset ??? Aneurysm Mother ??? Aneurysm Father Social History Socioeconomic History ??? Marital status: Unknown Spouse name: Not on file ??? Number of children: Not on file ??? Years of education: Not on file ??? Highest education level: Not on file Occupational History ??? Not on file Tobacco Use ??? Smoking status: Never Smoker ??? Smokeless tobacco: Current User Types: Chew Substance and Sexual Activity ??? Alcohol use: Yes Alcohol/week: 12.0 standard drinks Types: 12 Cans of beer per week ??? Drug use: No ??? Sexual activity: Not on file Other Topics Concern ??? Not on file Social History Narrative ??? Not on file Social Determinants of Health Financial Resource Strain: Not on file Food Insecurity: Not on file Transportation Needs: Not on file Physical Activity: Not on file Housing Stability: Not on file Physical Exam: Vitals: Last value Range last 24 hrs Temperature Temp: 36.7 ??C (98.1 ??F) Temp: [36.6 ??C (97.9 ??F)-37 ??C (98.6 ??F)] Heart Rate Heart Rate: 79 Heart Rate: [63-91] Blood Pressure BP: (!) 147/106 BP: (131-196)/(67-118) Respiratory Rate Resp: 28 Resp: [13-28] SpO2 SpO2: 96 % SpO2: [92 %-100 %] I/O: 04/05 0701 - 04/06 0700 In: 2340 [P.O.:820; I.V.:1520] Out: 0 General: Appears stated age, WDWN, NAD HEENT: NC/AT, MMM Pulm: Normal respiratory effort CV: NRRR Abdomen: Soft, NT/ND. Extremities: missing 5th digit on right hand with chronic 4th digit contracture. Peripheral pulses intact. Neuro: MS: Level of consciousness: Alert Orientation: situation, follows simple and complex commands. Some Right left agnosia show 2 fingerson right hand showing left hand. repetition intact. No gaze deviation, naming intact. Cognition impaired, unable to calculate 5-3, unable to state PADDY backwards. CN: CN II, III - VF full to motion, PERRLA OD and OS 20/100. Difficult to appreciate retinal hemorages or papilledema in naturally well lit room CN III, IV, - EOMI without nystagmus, no ptosis CN V - Facial sensation intact CN VII - Face symmetric CN VIII - Hearing intact to voice/finger rub CN IX, X, XII - symmetric palate elevation, tongue midline CN XI - SCM, trap strength intact Motor: Bulk: No focal atrophy noted Tone: Normal throughout Abnormal movements: None observed Fine motor: intact, no bradykinesia Strength: Roots Muscles Action Right Left C5-6 Deltoid Shoulder abduction 5 5 C5-6 Brachialis / Biceps brachii Elbow flexion 5 5 C6-7 Pronator teres Forearm pronation 5 5 C6-7 Extensor carpi radialis Wrist extension 5 5 C6-8 Triceps brachii Elbow extension 5 5 C7-8 Extensor digitorum communis Digit II-V extension 5 5 C7-T1 Flexor pollicis longus Thumb flexion 5 5 C8-T1 Dorsal interossei / ADM Digit II-V abduction 5 5 C8-T1 Abductor pollicis brevis Thumb abduction 5 5 L2-3 Iliopsoas Hip flexion 5 5 L3-4 Adductor yenifer / longus Hip adduction 5 5 L3-4 Quadriceps femoris Knee extension 5 5 L4-5 Tibialis anterior Ankle dorsiflexion/inversion 5 5 L4-S1 Hamstrings Knee flexion 5 5 L5-S1 Peroneus longus Ankle eversion 5 5 L5-S2 Triceps surae Ankle plantarflexion 5 5 Sensory: Symmetrically intact to light touch throughout confuses Left vs Right Reflexes: Arc Right Left Comments Biceps tendon C5-C6 2+ 2+ Brachioradialis tendon C5-C6 2+ 2+ Triceps tendon C6-C7 2+ 2+ Finger flexor (Tay) C8-T1 absent absent Patellar ligament L3-L4 2+ 2+ Plantar (Babinski) L5-S1 absent present Achilles tendon S1-S2 2+ 2+ Clonus: mildly present to forced dorsiflexion on Left. Coordination: FNF intact, no dysmetria or tremor noted POLLY, finger tapping smooth and symmetric Heel-Ruelas intact, no ataxia Gait: Deferred Labs: Recent Results (from the past 24 hour(s)) Prothrombin Time Result Value Ref Range PT 13.2 (H) 9.4 - 12.5 sec INR 1.2 APTT Result Value Ref Range PTT 31 25 - 37 sec TSH Result Value Ref Range TSH 2.20 0.27 - 4.20 mcIU/mL Hepatic Function Panel Result Value Ref Range Total Protein 7.3 6.1 - 8.0 g/dL Albumin 4.1 3.2 - 5.2 g/dL AST 32 0 - 39 unit/L ALT 37 0 - 55 unit/L Alk Phos 65 40 - 130 unit/L Total Bilirubin 1.3 0.2 - 1.3 mg/dL Bili, Direct 0.6 (H) 0.0 - 0.3 mg/dL Troponin Result Value Ref Range Troponin-T 0.02 (H) 0.00 - 0.00 ng/mL POCT Glucose Result Value Ref Range POC Glucose 138 65 - 199 mg/dL ABO/Rh Typing Result Value Ref Range ABORh Type O Pos Antibody screen Result Value Ref Range Ab Screen Interp Negative Expires at 2359 on: 04/08/2022 ABORH Recheck Status Result Value Ref Range ABORH Type Recheck Completed Type and Screen Validity Result Value Ref Range T&S only valid at [facility] POCT Glucose Result Value Ref Range POC Glucose 144 65 - 199 mg/dL Troponin Result Value Ref Range Troponin-T 0.04 (H) 0.00 - 0.00 ng/mL Gold Tube HOLD Result Value Ref Range Gold Hold Sample in lab. _Urinalysis with microscopic Result Value Ref Range Glucose UA Negative Negative mg/dL Protein UA 100 (A) Negative mg/dL Bilirubin UA Negative Negative mg/dL Urobilinogen UA Normal Normal mg/dL pH UA 5.5 5.0 - 8.0 Blood UA Large (A) Negative mg/dL Ketones UA Trace (A) Negative mg/dL Nitrite UA Negative Negative Leukocytes UA Negative Negative mcL Appearance UA Cloudy (A) Clear Spec Worton UA 1.020 1.005 - 1.030 Color UA Dark Yellow Yellow RBC UA >100 (H) 0 - 3 /HPF WBC UA 0 0 - 3 /HPF Bacteria UA Rare (A) None /HPF Hyaline Cast UA 4 (H) 0 - 2 /LPF Urine Hold Result Value Ref Range Urine Hold Sample in lab. Troponin Result Value Ref Range Troponin-T 0.06 (H) 0.00 - 0.00 ng/mL Magnesium Result Value Ref Range Magnesium 0.79 0.69 - 1.07 mmol/L Phosphorus Result Value Ref Range Phosphorus 3.7 2.5 - 4.5 mg/dL Basic Metabolic Panel (non-fasting) Result Value Ref Range Glucose Lvl 138 65 - 199 mg/dL BUN 28 (H) 10 - 20 mg/dL Creatinine 1.99 (H) 0.80 - 1.50 mg/dL Sodium 139 135 - 145 mmol/L Potassium 2.9 (CRIT) 3.5 - 5.0 mmol/L Chloride 102 98 - 107 mmol/L CO2 23 22 - 31 mmol/L Anion Gap 14 5 - 15 mmol/L Calcium 8.8 8.5 - 10.5 mg/dL Estimated GFR 38 (L) >=60 mL/min/1.73 m?? Hemogram Result Value Ref Range WBC 12.6 (H) 4.0 - 9.5 x10(3)/mcL RBC 3.86 (L) 4.58 - 5.54 x10(6)/mcL Hemoglobin 11.9 (L) 13.7 - 16.5 g/dL Hematocrit 32.8 (L) 40.5 - 48.5 % MCV 85.0 82.9 - 93.1 fL MCH 30.8 27.5 - 32.1 pg MCHC 36.3 (H) 32.0 - 35.7 g/dL Platelets 178 145 - 357 x10(3)/mcL RDWSD 40.0 36.0 - 45.0 fL RDWCV 13.0 11.4 - 13.8 % MPV 9.6 7.6 - 12.9 fL nRBC % Auto 0.0 % nRBC Abs Auto 0.000 0.000 - 0.000 x10(3)/mcL Differential, Automated Result Value Ref Range Neutrophils % 80.6 % Neutr Abs (ANC) 10.17 (H) 1.70 - 6.10 x10(3)/mcL Lymphocytes % 10.4 % Lymphocytes Abs 1.3 0.9 - 3.2 x10(3)/mcL Monocytes % 6.5 % Monocyte Abs 0.8 0.3 - 0.9 x10(3)/mcL Eosinophils % 1.5 % Eosinophils Abs 0.2 0.0 - 0.4 x10(3)/mcL Basophils % 0.4 % Basophils Abs 0.0 0.0 - 0.1 x10(3)/mcL Immature Gran % 0.60 % [place] Gran Abs 0.07 (H) 0.00 - 0.04 x10(3)/mcL Potassium Result Value Ref Range Potassium 3.2 (L) 3.5 - 5.0 mmol/L Troponin Result Value Ref Range Troponin-T 0.06 (H) 0.00 - 0.00 ng/mL Diagnostic Tests and Imaging: MRI Brain wwo Contrast (Generic) Final Result 1. Extensive leukoaraiosis. 2. Extensive, largely nonenhancing, signal abnormality within the bilateral thalami. There is no decreased diffusion. Differential diagnosis includes sequela of old ischemia, vasogenic edema related to the sites of hemorrhage, and, less commonly, a toxic or metabolic disorder. 3. Innumerable small foci of intracerebral hemorrhage in a pattern consistent with long-standing hypertension. An additional component related to amyloid angiopathy cannot be excluded. 4. Numerous small foci of acute or subacute infarction scattered in the bilateral cerebral hemispheres Thank you for letting us participate in the care of this patient. If you are a health care provider and have any questions regarding this report, please contact the number below. For patients who have questions please contact the health animal care provider that requested your imaging first. Electronically signed by: Bret Calvert MD, [facility] ([phone]), at 04/06/2022 12:03 PM MRI Angiogram Head wo Contrast (Generic) Final Result No site of more than mild intracranial stenosis. Thank you for letting us participate in the care of this patient. If you are a health care provider and have any questions regarding this report, please contact the number below. For patients who have questions please contact the health animal care provider that requested your imaging first. Electronically signed by: Bret Calvert MD, [facility] ([phone]), at 04/06/2022 12:[address] Head wo Contrast (Generic) Final Result Areas of hypoattenuation within the bilateral thalami most likely representing ischemic infarction. Differential diagnosis includes vasogenic edema about sites of hemorrhage but the areas of hypoattenuation are large relative to the sites of hemorrhage, the hypoattenuation is sharply marginated, and there is little mass effect. The sites of high attenuation material within each of these areas, likely hemorrhage, are unchanged. Extensive inflammatory changes of the paranasal sinuses. Thank you for letting us participate in the care of this patient. If you are a health care provider and have any questions regarding this report, please contact the number below. For patients who have questions please contact the health animal care provider that requested your imaging first. Electronically signed by: Bret Calvert MD, [facility] ([phone]), at 04/05/2022 6:55 PM Assessment/Plan: Denilson Go is a 56 y.o. male with PMHx of HTN, non-compliant with home meds (lisinopril 40mg,HCTZ) due to lack of access to PCP, presenting with bilateral thalamic hemorrhage. Denilson is being transferred down from the NCCU after achieving adequate blood pressure control. He remains somewhat confused with cognitive difficulties, likely in the setting of innumerable small infarcts seen on MRI. He also may be having cognitive challenges due to hypertensive encephalopathy, which may improve somewhat with continued blood pressure control. We will continue his nicardipine drip with a goal BP of 160/90 as we eventually transition to oral antihypertensives. Will obtain renal duplex, TSH, UDS, aldosterone level to assess for secondary causes of hypertension. Although, his hypertension is in the setting of noncompliance with his home antihypertensives and this is likely the etiology of his cerebral findings. He also has evidence of other organ damage consistent with hypertensive injury including proteinuria, elevated creatinine, poor visual acuity. Will consider ophthalmology consult early this week to better assess for retinopathy, which he likely has. 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 #Diffuse small acute vs subacute infarcts of bilateral cerebral hemispheres #HTN - Admit to Neurology, step-down status - NC/VS Q2H - MRI with innumerable small foci of cerebral hemorrhage and abnormal signal in b/l thalami - MRA without significant stenosis of intracerebral vessels -SBP goal <160, dBP goal <100 - continue nicard gtt, PRNs available, start with labetalol - lisinopril 20mg qd - TTE pending - troponin peak at 0,06, d/c trend -hold DVT ppx for now -f/u UDS, random aldosterone, TSH/T4free -renal duplex -consider opthalmology consult # Routine/PPX - PT/OT - Activity: up with assistance - VTE ppx: SCDs - RBOs: Senna/docusate, bisocodyl prn - Diet: Daily Healthy Menu Choices/Cardiac diet ([facility]-Diet) - Dispo: Pending course - Code: Attempt Cardiopulmonary Resuscitation - Inpatient Maurisio Amaya, Neurology, PGY-2 Vascular Neurology Service #[id number] 04/06/2022 Neurology Attending Attestation I evaluated the patient with the Stroke Team during bedside rounds. I have reviewed the medical records and patient's history, as well as the resident???s history and examination findings and I agree with the details as written. My neurologic examination confirms the resident???s findings. We formulated the assessment and plan after a detailed discussion, as documented. Clinically improving; MRI looks like PRES; adding more po anti-hypertensives Jammie Kulkarni APRN - 04/05/2022 3:30 PM EDT NEUROCRITICAL CARE HISTORY & PHYSICAL Date of Admission: 04/05/2022 3:17 PM HPI: Denilson Go is a 56 y.o. left-handed male with a past medical history of HTN presenting as a transfer from [facility] for bilateral thalamic IPH. Per chart review, provider report, and patient interview, he had been complaining of headaches for the last six days, with associated with nausea and blurred vision. He presented to urgent care this morning, had a negative Covid test and was advised to go to the ED for very high blood pressures, noted in OSH documentation to be 280/180. When he got to the OSH ED, initial VS: BP 263/177, HR 92, RR 18, temp 36.2C, SpO2 98% on RA. He was given Labetalol 20mg x2, with improvement to 204/113. He was given IV Tylenol 650mg for GARCIA, Zofran 4mg for nausea, and was started on Nicardipine drip. Transfer sought to [facility] for higher level of care. Pertinent Data from OSH Imaging CT head bilateral acute intraparenchymal hemorrhage in the thalami, right greater than left,chronic sinusitis EKG NSR with LVH, no ST elevation, 79bpm, Vannesa 170ms, QTc 491ms Labs Troponin 76-->81 (wnl less than 60), WBC 11.1, K 3.1, BUN 28, Cr 2.2, GFR 30 (55 in 2017), TBili 1.5, AST 41 Micro Covid-19 PCR negative He is admitted to the Neurocritical Care service for frequent neurologic monitoring and close observation. Upon arrival to [facility] via [facility] (no ground transport available), he is alert and oriented, complaining of GARCIA rated 2/10. He is able to transfer self from stretcher to bed, VS: BP 163/87 (Nicard 12mg/hr), HR 78, RR 19, SpO2 98% on RA[facility], during which he remained on Nicardipine drip and was given Keppra 1Gm per [facility] protocol. Of note, he reports he does not have a PCP since his previous retired in 2017 and has not had prescriptions for Lisinopril 20mg daily and HCTZ 25mg daily refilled since then. He claims occasionally checking BP at home using sister's machine, but can't recall prior readings. ROS: Gen: denies fever, chills, fatigue, malaise, weight loss Eyes: denies blurring, diplopia, vision loss, photophobia CV: denies chest pain, palpitations, lightheadedness, syncope, dyspnea on exertion Resp: denies SOB, cough GI: denies vomiting, diarrhea, constipation, abdominal pain Neuro: as per HPI; denies weakness, paresthesias, seizures, tremors, vertigo, balance problems Past Medical History: Diagnosis Date ??? HTN (hypertension) No past surgical history on file. Social History Tobacco Use ??? Smoking status: Never Smoker ??? Smokeless tobacco: Current User Types: Chew Substance Use Topics ??? Alcohol use: Yes Alcohol/week: 12.0 standard drinks Types: 12 Cans of beer per week Medications Prior to Admission Medication Sig Dispense Refill Last Dose ??? lisinopril (PRINIVIL;ZESTRIL) 20 mg Tablet Take 20 mg by mouth daily. Unknown at Unknown time ??? hydroCHLOROthiazide (HYDRODIURIL) 25 mg Tablet Take 25 mg by mouth daily. Unknown at Unknown time Vital Sign Ranges: Last value Range last 24 hrs Temperature Temp: -- Heart Rate Heart Rate: 82 Heart Rate: [77-89] Blood Pressure BP: (!) 150/98 BP: (150-196)/(95-112) Respiratory Rate Resp: 26 Resp: [18-26] SpO2 SpO2: 99 % SpO2: [96 %-100 %] Art BP BP (Arterial Line): -- Lines/Drains/Airways: PIV x2 Labs: Recent Results (from the past 24 hour(s)) Prothrombin Time Result Value Ref Range PT 13.2 (H) 9.4 - 12.5 sec INR 1.2 APTT Result Value Ref Range PTT 31 25 - 37 sec TSH Result Value Ref Range TSH 2.20 0.27 - 4.20 mcIU/mL Hepatic Function Panel Result Value Ref Range Total Protein 7.3 6.1 - 8.0 g/dL Albumin 4.1 3.2 - 5.2 g/dL AST 32 0 - 39 unit/L ALT 37 0 - 55 unit/L Alk Phos 65 40 - 130 unit/L Total Bilirubin 1.3 0.2 - 1.3 mg/dL Bili, Direct 0.6 (H) 0.0 - 0.3 mg/dL Troponin Result Value Ref Range Troponin-T 0.02 (H) 0.00 - 0.00 ng/mL POCT Glucose Result Value Ref Range POC Glucose 138 65 - 199 mg/dL EKG: NSR 82bpm on ICU monitor tech Physical Exam: General: INAD. HEENT: Head is NC/AT. Nares patent. Neck: Full AROM. No nuchal rigidity. CV: Regular rate, regular rhythm, normal S1/S2, no M/R/G/C. Palpable distal pulses bilaterally. Lungs: CTA bilaterally, no rales, no wheezing. Abd: Soft, NT, ND. NABS throughout. Ext: No gross deformities noted. No clubbing, cyanosis, or edema. 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 Skin: Warm and dry. No visible rashes. Neuro: Mental status: GCS 15. AOx4. Speech is clear/fluent/appropriate. Follows simple and complex commands. Repetition and naming intact. CN: Uses glasses. EOMI, PERRL 3mm brisk, VFF, no nystagmus. Smile is symmetric. Sensation to light touch is intact on the face. Hearing intact to voice. Tongue midline. Palate rises symmetric. Shouldershrug intact bilaterally. Motor: Normal bulk and tone, no rigidity noted. No tremors noted. Strength is 5/5 throughout. No drift. Sensory: Intact to light touch throughout. No extinction on DSS testing. Reflexes: Clonus not present. Coordination: Intact FtN and HtS, no ataxia or dysmetria noted. Niels intact. Gait: Deferred. Psych: affect is appropriate. NIH Stroke Scale: 1a. Level of consciousness:: 0 - alert 1b. LOC Questions: Ask patient the month and their age:: 0 - answers both correctly 1c. LOC Commands: Ask patient to open and close eyes:: 0 - performs both correctly 2. Best gaze (horizontal eye movement):: 0 - normal 3. Visual field testing:: 0 - no visual loss 4. Facial paresis*: Normal symmetry (0) 5a. Motor function left arm:: 0 - no drift 5b. Motor function right arm:: 0 - no drift 6a. Motor function left leg:: 0 - no drift 6b. Motor function right leg:: 0 - no drift 7. Limb ataxia:: 0 - absent 8. Sensory (Use pinprick to test arms, legs, trunk, and face compare side to side):: 0 - normal 9. Best language (describe picture, name items, read sentences):: 0 - no aphasia 10. Dysarthria (read several words):: 0 - normal articulation 11. Extinction and inattention:: 0 - no neglect NIH Stroke Scale Total: 0 ASSESSMENT & PLAN: Denilson Go is a 56 y.o. left-handed male with a past medical history of HTN presenting in transfer with headache, nausea, and blurred vision, found to have bilateral thalamic IPH, likely hypertensive in origin due to location. ICH Score 0 # Neuro- > bilateral thalamic IPH - q1h neuro checks, VS - HOB > 30 deg - repeat CT head at 1830 to assess stability of ICH - MRI brain w/wo to evaluate for underlying lesion - obtain MRA head/neck to evaluate for any vascular abnormality - no indication for seizure prophylaxis # CV - > hypertensive emergency > hx HTN - maintain SBP < 160 - PRN Labetalol, Hydralazine, Nicardipine drip - baseline EKG - troponin Q6H x2 - monitor on telemetry for dysrhythmias # Pulm - - goal O2 sats > 92% - IS at bedside # GI - - bedside swallow eval, if passed: Cardiac diet - maintain bowel reg # FEN/ - - daily BMP, Mg, PO4 - ICU lyte replacement protocol # Heme - - daily CBC - hold SQH until PBD #2 # Endo - - goal glucose 120-180, ISS PRN # ID - - for temp > 38.4 C --> UA, CXR, blood cx, sputum cx - PRN Tylenol # ICU Bundle Analgesia Keep Sedation None HOB > 30 degrees SBT Not intubated VAP Bundle Not Intubated Ulcer Prophylaxis Not indicated Bowel Regimen Adequate Feeding PO Diet Ordered: Daily Healthy Menu Choices/Cardiac diet ([facility]-Diet) DVT Prophylaxis SCDs only, chemoppx on hold Glucose 120-180 Controlled without insulin requirement De-escalation of Antibiotics Not applicable Indwelling Tubes + Lines PIV x2 Skin Daily Nursing Skin Breakdown Risk Assessment Rehab Services Consulted PT/OT: Consult ordered; recs pending NEEDLE GRADER: Not indicated Family Meeting in Last 5 Days No, but updated family extensively at bedside Code Status - Attempt Cardiopulmonary Resuscitation - Inpatient Dispo - ICU Jammie Kulkarni APRN 04/05/2022 N[facility]U RUIZ Pager #[phone], Phone [phone] documented in this encounter Miscellaneous Notes Care Management Discharge - Nicole Tavarez RN - 04/14/2022 12:00 PM EDT CARE MANAGEMENT FINAL DISCHARGE NOTE Chart reviewed, care reviewed with primary team and at interdisciplinary rounds. Patient is medically ready for discharge to Acute Rehab Needs for Transition of Care: Plan for discharge is: Acute Rehab Outpatient Agency/Support Group Needs: None Agency Referrals & Follow-up Care: Contact information for follow-up [address] [address] Transportation: Family can transport Functional status prior to admission: Independent Home Environment: Others in the home: sibling(s) (lives with sister and brother in law. Kendy Shaikh). Current Living Arrangements: home/apartment/condo. Accessibility Concerns:1 LEODAN basement level with ramp to family room. Current Functional Ability: Assistive Person and Equipment DME used at home: none DME Needed at Discharge: tbd rehab Patient is insured through: Primary Insurance: N/A Payor: / Secondary Insurance: N/A Prescription Coverage: No This plan was formulated with input from patient,sister Kendy (CM assisted pt to use speaker phone to call sister with plan) and team. All are in agreement with plan. Jacob Tavarez RN BSN CM Neurology Stay CutterTufting Machine Fixer of Care Management Pager [phone] Care Management - Nicole Tavarez RN - 04/14/2022 11:32 AM EDT OFFICE OF CARE MANAGEMENT PROGRESS NOTE LOS: Hospital Day 9 days Chart reviewed, care reviewed with primary team and at interdisciplinary rounds. Patient continues to meet inpatient level of care related to: stroke Decision Maker: Self Functional status prior to admission: Independent Home Environment: Others in the home: sibling(s) (lives with sister and brother in law. Kendy Shaikh). Current Living Arrangements: home/apartment/condo. Accessibility Concerns: 1 LEODAN basement level with ramp to family room. Current Functional Ability: Assistive Person and Equipment DME used at home: none DME Needed at Discharge: tbd rehab Patient is insured through: Primary Insurance: N/A Payor: / Secondary Insurance: N/A Last Physical Therapy Recommendation: acute rehabilitation facility with to be determined Last Occupational Therapy Recommendation: acute rehabilitation facility with walker, front wheeled Plan for discharge is: Acute Rehab Outpatient Agency/Support Group Needs: None Agency Referrals: [facility] Acute Rehabilitation and Sub-Acute (Swing) Rehab Levels of Care [address] [place] [address] Transportation: other *will need OCM approval for ambulance Barriers to discharge: Discharge planning Plan going forward: Care Management will continue to follow and assist with discharge planning and coordination of care as indicated. Anticipated Date of Discharge: 04/14/22 Jacob Tavarez RN BSN CM Neurology Stay CutterTufting Machine Fixer of Care Management Pager [phone] Plan of Care - Linette Parker RN - 04/13/2022 3:44 PM EDT OUTCOME EVALUATION NOTE: OUTCOME SUMMARY: Patient A+Ox4, no complaints of pain, OOB to chair x1 with FWW, BP elevated but within parameters, ambulated with RN around hallway complaining of some increased vision issues ENVIRONMENTAL SERVICES TECH [place] aware, awaiting placement PLAN MOVING FORWARD: Monitor vitals Monitor neuros Pain management BP control Awaiting placement INDIVIDUALIZED FALL PREVENTION INTERVENTIONS: Patient-specific fall risk factors per assessment: Vision difficulties, gen weakness, IV sites, pain Assistance: SBA with FWW Supervision: Eyes on Surveillance: Bed locked in low position, call lucio within reach, purposeful hourly rounding, clutter free environment, bed/chair alarm on, family at bedside Patient-specific fall prevention interventions for sensory deficits provided: Yes CPG GOAL OUTCOME EVALUATION: Continue care plan as documented. Plan of Care - Linette Parker RN - 04/12/2022 4:48 PM EDT OUTCOME EVALUATION NOTE: OUTCOME SUMMARY: Patient A+Ox4, BP intermittently elevated with highest systolic 183, no complaints of pain, resting comfortably in chair, ambulated in hallway with RN, up to bathroom to void PLAN MOVING FORWARD: Monitor neuros Monitor BP and VS Awaiting rehab placement INDIVIDUALIZED FALL PREVENTION INTERVENTIONS: Patient-specific fall risk factors per assessment: iv sites, dizziness while ambulating Assistance: SBA Supervision: Eyes on Surveillance: Bed locked in low position, call lucio within reach, purposeful hourly rounding, clutter free environment, bed/chair alarm on, family at bedside Patient-specific fall prevention interventions for sensory deficits provided: Yes CPG GOAL OUTCOME EVALUATION: Continue care plan as documented. Plan of Care - Geovanni Bell MD - 04/11/2022 10:34 AM EDT Cardiology Brief Plan of Care Note Troponin has since downtrended. No need to continue to trend troponins at this time. Lipid panel is surprisingly good. Does not meet USPSTF guidelines for statin therapy, but given his troponin leak and possibility of baseline CAD would start on 20mg lipitor at this time. In addition, would put pt on aspirin prior to discharge if okay from neurology standpoint (has innumerable small foci of intracerebal hemorrhage on brain MRI from 04/06/22). We will sign off, but please do not hesitate to call back if something arises in the future. Geovanni Bell, PGY-5 Stone Carriage Operator [phone] Consult Note - Ryan Canada MD - 04/10/2022 12:23 PM EDT Images from the original note were not included[place] [address] [address] INPATIENT CARDIOLOGY CONSULT NOTE Date of Consultation: 04/10/2022 Admit Date: 04/05/2022 Place of Service: N[facility]U Responsible Attending: Luther Purdy MD Hospital Day 5 days Reason for Consult: Troponin leak Active Problems: Active Hospital Problems Diagnosis ??? Posterior reversible encephalopathy syndrome (PRES) ??? Troponinemia likely demand ischemia ??? multifocal small foci of scattered infarction in setting of PRES with hypertensive emergency ??? Hypertensive emergency ??? MARY (acute kidney injury) ??? bilat thalamic hemorrhages etiology PRES with hypertensive emergency Resolved Hospital Problems No resolved problems to display. HPI: Denilson Go is a 56 y.o. male with PMH of HTN (non-compliant with home meds) who presented to the neurology service on 04/06/22 for several days of headache, n/v, blurred vision. MRI was significant for PRESS is the setting and nephrology has been helping work up secondary causes of hypertension. Initial tropon was positive, and so they have been trending the values which have been slowly increasing although patient has no chest pain. Cardiology has been consulted due to the troponin leak. The pt denies headaches, dizziness, nausea, vomiting, changes in vision, chest pain/pressure, diaphoresis, sob, orthopnea, LOPEZ, changes in micturition/defecation, ELSY, or weight gain. Review of Systems: 11 point ROS is either negative or per HPI Past Medical History: Past Medical History: Diagnosis Date ??? HTN (hypertension) Past Surgical History: No past surgical history on file. Allergies: No Known Allergies Out-Patient Medications: Medications Prior to Admission Medication Sig Dispense Refill Last Dose ??? lisinopril (PRINIVIL;ZESTRIL) 20 mg Tablet Take 20 mg by mouth daily. Unknown at Unknown time ??? hydroCHLOROthiazide (HYDRODIURIL) 25 mg Tablet Take 25 mg by mouth daily. Unknown at Unknown time In-Patient Medications: ??? amLODIPine 10 mg Oral Daily ??? labetaloL 200 mg Oral TID ??? tamsulosin 0.8 mg Oral Daily ??? heparin (porcine) 5,000 Units Subcutaneous Q8H WILLIAM ??? lisinopriL 20 mg Oral Daily ??? senna-docusate 2 tablet Oral BID ??? polyethylene glycoL (MIRALAX) oral powder 17 g Oral Daily Family and Social History: Family History Problem Relation Age of Onset ??? Aneurysm Mother ??? Aneurysm Father Denies any family hx of heart disease. Social History Socioeconomic History ??? Marital status: Unknown Spouse name: Not on file ??? Number of children: Not on file ??? Years of education: Not on file ??? Highest education level: Not on file Occupational History ??? Not on file Tobacco Use ??? Smoking status: Never Smoker ??? Smokeless tobacco: Current User Types: Chew Substance and Sexual Activity ??? Alcohol use: Yes Alcohol/week: 12.0 standard drinks Types: 12 Cans of beer per week ??? Drug use: No ??? Sexual activity: Not on file Other Topics Concern ??? Not on file Social History Narrative ??? Not on file Social Determinants of Health Financial Resource Strain: Not on file Food Insecurity: Not on file Transportation Needs: Not on file Physical Activity: Not on file Housing Stability: Not on file Non-smoker Last value Range last 8 hrs Temperature Temp: 37.2 ??C (99 ??F) Temp: [37.2 ??C (99 ??F)-37.3 ??C (99.1 ??F)] Heart Rate Heart Rate: 62 Heart Rate: -- Blood Pressure BP: (!) 173/115 BP: (173-194)/(115-120) Respiratory Rate Resp: 22 Resp: -- SpO2 SpO2: 98 % SpO2: [98 %] I's and O's: Intake/Output Summary (Last 24 hours) at 04/10/2022 1223 Last data filed at 04/10/2022 0800 Gross per 24 hour Intake 480 ml Output 1445 ml Net -965 ml Weights: Wt & BMI By Encounter Date Flowsheet Row Ad[facility] (Current[facility] Orthopaedics at [facility] Weight 119 kg (262 lb 5.6 oz) 1 04/09/2022 0600 131.5 kg (290 lb) 1 10/23/2016 1033 BMI -- 40.5 1 10/23/2016 1033 Physical Exam: General: Pleasant male in no acute distress Cardiac: Regular rate and rhythm, S1/S2 auscultated. No murmurs, rubs, or gallops appreciated Neck: JVP not elevated at 90 degrees Respiratory: No increased work of breathing, clear to auscultation bilaterally. No crackles, rhonchi, or wheeze Extremities: Warm, no lower extremity edema Neuro: Alert and oriented Skin: Warm, dry Psych: Normal affect Labs: CBC: Recent Labs 04/10/22 0435 04/09/22 0050 04/08/22 0120 WBC 6.6 7.4 8.7 HGB 11.0* 10.7* 10.8* PLATELET 183 177 178 Chemistry: Recent Labs 04/10/22 0435 04/09/22 0050 04/08/22 0120 NA 140 142 141 K 4.1 3.9 3.2* CL 105 110* 110* CO2 24 23 21* BUN 16 14 13 CREATININE 1.66* 1.62* 1.52* GLUCOSE 104 109 135 Recent Labs 04/10/22 0435 04/09/22 0050 04/08/22 0120 CALCIUM 8.6 8.6 8.8 MAGNESIUM 0.74 0.73 0.72 PHOS 3.4 3.4 3.0 LFT's: Recent Labs 04/05/22 1535 BILITOT 1.3 BILIDIR 0.6* ALBUMIN 4.1 ALKPHOS 65 ALT 37 AST 32 Coags: Recent Labs 04/05/22 1535 PT 13.2* INR 1.2 PTT 31 Cardiac enzymes: Recent Labs 04/10/22 0435 04/09/22 1155 04/09/22 0050 TROPONINT 0.32* 0.29* 0.29* ECG 04/10/22 04/09/22 04/05/22: ST depressions in lateral leads Echocardiogram 04/07/22 The left ventricular size is normal. Wall thickness is severely increased. LV function is normal with LVEF of 60% by Peters's biplane and no wall motion abnormalities. Right ventricular size and function are normal. PASP 26 mm Hg (assuming RA pressure 3 mm Hg). The left atrium is moderately dilated. The right atrium is mildly dilated. There is no hemodynamically significant valvular disease present. No prior echo for comparison. Severely increased wall thickness - this could be due to long-standing hypertension, but cannot rule out other conditions, such as amyloid. Consider cardiac MRI if clinically appropriate. Assessment: Denilson Go is a 56 y.o. male with PMH of HTN who presented to [facility] with PRESS and was subsequently found to have a troponin elevation, currently at 0.32 and plateuing. EKG shows some lateral ST changes (both on admission and today) however patient is completely chest pain free and otherwise feels good with no complaints. TTE from 04/07/22 shows no WMA as well (when troponin was beginning to uptrend). Given his hospital course, longstanding HT (severely thickened LV supports this as well), this is likely demand ischemia from his HTN which is still very elevated although significantly better controlled. Do not think that patient is having plaque rupture ACS at this time. Recommendations: #Demand Ischemia -Ongoing BP optimization -Continue to trend trops to peak -Check lipid panel (may start pt on statin for primary prevention) -No hep gtt at this time -Would put pt on aspirin prior to d/c if okay from neurology standpoint (has innumerable small foci of intracerebal hemorrhage on brain MRI from 04/06/22) Case was discussed with Dr. Canada who agrees with recommendations as documented above. Cardiology will follow the troponin trend and the lipid panel, but will otherwise sign off unless additional support is needed. Consult service will continue to follow patient. x Recommendations are above, please page if further consultation required. Geovanni Bell Stone Carriage Operator [phone] CARDIOLOGY STAFF NOTE I have personally interviewed and examined the patient and reviewed appropriate data, including labs, ECGs and other diagnostic studies. I agree with the principal findings documented above. The assessment and plan were formulated in discussion with me. Pertinent History: No CV symptoms. Pertinent Exam: JVP normal; lungs clear; RRR; no edema. Plan: -Continue CV medical therapies, as above -No current convincing evidence for type 1 ACS Ryan Canada MD, FAC, [facility] Staff Ecommerce Marketing Manager batch unit treater Consult Note - Adiel Mendosa MD - 04/09/2022 2:59 PM EDT Images from the original note were not included. [facility] NEPHROLOGY/HYPERTENSION CONSULT NOTE PATIENT: Denilson Go : 1965 None REASON FOR CONSULTATION: Hypertension HPI: 56 yo M with a PMHx significant for HTN (non-compliant with home medications lisinopril and HCTZ 2/2 to lack of medical access to PCP). No significant surgical Hx. FMHx significant for a questionable stroke and heart disease of unspecified etiology in father. 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 History difficult to obtain overall given recall of patient's memories. Patient initially presented to an urgent care facility for several days of headache, nausea, vomiting, and blurred vision. CT head originally demonstrated hemorrhage within bilateral thalami with areas of surrounding vasogenic edema without significant mass effect. The patient had troponins of 0.02 to 0.04 to 0.06 without ischemic changes. UA showed 100 protein and 100 RBC. Lastly, K+ = 2.9. Patientappears to have been placed on nicardipine gtt and transferred to [facility] NCCU with Keppra being given en route. While in [facility], most recent MRI concerning for PRESS. Neurological team conducted excellent BP management thus far while in hospital. Most recent regimen encompasses Labetalol 200mg TID, Lisinopril 20mg daily, Flomax 0.8mg daily, and PRN labetalol and hydralazine. The patient has undergone several HTN workup including a renal artery duplex inconclusive for renal artery stenosis. TSH obtained was 3.14. UDS negative. TTE demonstrated EF of 60% with no segmental wall motion of LV or RV. A1c = 4.8. Aldosterone level <4.0. It is important to mention several things. First, his HTN while on labetalol induced some bradycardia in the 50s. Secondly, the Cr values did not significantly increase with initiation of ANAT/ARB. While in the room, the patient has no acute symptoms now. Mentions his headache is largely improved. Further investigation demonstrates his sleeping habits as, poor encompassing snoring, some questionable hypoapnic events, lethargy in day time, and headache. The patient has no significant sudden palpitations, diaphoresis episodes, or anxious episodes as well. No family members have HTN noted. ROS: 4 point review of sytem was done, everything was negative except for what was mentioned above. INTAKE/OUTPUTS: Intake/Output Summary (Last 24 hours) at 04/09/2022 1459 Last data filed at 04/09/2022 1200 Gross per 24 hour Intake 700 ml Output 2150 ml Net -1450 ml MEDICATIONS: ??? labetaloL 200 mg Oral TID ??? tamsulosin 0.8 mg Oral Daily ??? heparin (porcine) 5,000 Units Subcutaneous Q8H WILLIAM ??? nicotine 1 patch Transdermal Daily And ??? Patch Verification 1 patch Transdermal BID And ??? nicotine 1 patch Transdermal Daily ??? lisinopriL 20 mg Oral Daily ??? senna-docusate 2 tablet Oral BID ??? polyethylene glycoL (MIRALAX) oral powder 17 g Oral Daily Vasoactive/Sedating Meds: ??? niCARdipine 0 mg/hr (04/08/22 1500) VITALS: Last value Range last 24 hrs Temperature Temp: 36.6 ??C (97.88 ??F) Temp: [36.6 ??C (97.88 ??F)-37.1 ??C (98.78 ??F)] Heart Rate Heart Rate: 71 Heart Rate: [57-80] Blood Pressure BP: (!) 159/94 BP: (127-197)/(78-116) Respiratory Rate Resp: 26 Resp: [14-26] SpO2 SpO2: 99 % SpO2: [92 %-100 %] Ventilator: Mode Rate TV PEEP FiO2 Pplateau PHYSICAL EXAM: Patient is awake alert not in acute distress No jaundice oral mucosa moist Neck- supple trachea central. No masses on neck Chest- bilateral air entry present clear to auscultation no wheeze no crepitation. CVS-S1-S2 present, no murmur regurgitation gallops. Bradycardic. Pulses in brachial artery and dorsalis pedis artery by 0.5 seconds. Abdomen-nontender nondistended, bowel sounds present. No abdominal bruits heard. Extremities-peripheral pulses present +1 Pitting Edema Neuro-patient is awake alert, moving all 4 limbs, motor examination is grossly normal. No asterixis. STUDIES: LABS: CBC: Recent Labs 04/09/22 0050 04/08/22 0120 04/07/22 0430 WBC 7.4 8.7 9.8* HGB 10.7* 10.8* 12.1* PLATELET 177 178 206 Chemistry: Recent Labs 04/09/22 0050 04/08/22 0120 04/07/22 0430 NA 142 141 141 K 3.9 3.2* 3.1* CL 110* 110* 109* CO2 23 21* 21* BUN 14 13 17 CREATININE 1.62* 1.52* 1.68* GLUCOSE 109 135 120 Recent Labs 04/09/22 0050 04/08/22 0120 04/07/22 0430 CALCIUM 8.6 8.8 8.7 MAGNESIUM 0.73 0.72 0.76 PHOS 3.4 3.0 3.2 ABG (Arterial Blood Gas) No results for input(s): PHART, DPZ2ZGW, PO2ART, JMP2RRD, LACTATEVEN, WQY5TYP, PFRATIOART2 in the last 168 hours. VBG (Venous Blood Gas) No results for input(s): PHVEN, ESW3RGE, PO2VEN, RXD0HCJ, LACTATEVEN in the last 168 hours. Mixed Venous Sat No results for input(s): Q6NCTH0 in the last 168 hours. LFT's: Recent Labs 04/05/22 1535 BILITOT 1.3 BILIDIR 0.6* ALBUMIN 4.1 ALKPHOS 65 ALT 37 AST 32 No results found for: UPROTCREAT No results found for: TPROTEINPEP, ALBELECT No results found for: MICROALBUR, [id number] Lab Results Component Value Date HA1C 4.8 04/07/2022 Lab Results Component Value Date CALCIUM 8.6 04/09/2022 PHOS 3.4 04/09/2022 No results found for: 25OHVITD MICROBIOLOGY: IMAGING: MRI 04/06: IMPRESSION 1. Extensive leukoaraiosis. ?? 2. Extensive, largely nonenhancing, signal abnormality within the bilateral thalami. There is no decreased diffusion. Differential diagnosis includes sequela of old ischemia, vasogenic edema related to the sites of hemorrhage, and, less commonly, a toxic or metabolic disorder. ?? 3. Innumerable small foci of intracerebral hemorrhage in a pattern consistent with long-standing hypertension. An additional component related to amyloid angiopathy cannot be excluded. ?? 4. Numerous small foci of acute or subacute infarction scattered in the bilateral cerebral hemispheres MRI Head Angiogram WO Contrast 04/06: IMPRESSION No site of more than mild intracranial stenosis. ASSESSMENTS + IMPRESSIONS: - Uncontrolled HTN with Recent Hx of Emergent HTN - Concern for Secondary Hypertension - Acute Kidney Injury likely 2/2 to HTN Injury - Acute Urinary Retention s/p Summers - PRES Syndrome Hemodynamics: Very perplexing case of severe hypertension with clear evidence of emergent HTN inducing end-organ damage through MARY, ocular manifestations, PRES, and troponinemia. Effective workup for secondary HTN has been thoroughly initiated by primary team, but has unfortunately been inconclusive.His management is currently encompassed with Labetalol, lisinopril, flomax, and BB/Hydral PRN. He has now been able to wean the cardene gtt completely. By guidelines and definition, the patient does not meet criteria for a resistant hypertension. A secondary cause of his workup is reasonable to pursuehowever. The patient has had notice of hypokalemia during and before admission even in the setting of a hyperkalemic agent like lisinopril raising question to a possible primary aldosteronism etiology.Though his aldosterone level was 4, a renin/aldosterone ratio is guideline to initiate algorithmic workup of aldosteronism. In setting of a ratio, more than 20, further urine studies, labs, and possible imaging will be warranted to conclusively diagnose aldosteronism. In this setting, patient would need a potassium sparing diuretic such as spironolactone. If renin levels are significantly elevated, more renin suppressing agents including potent BB or even direct renin inhibitors could be indicated. The patient's question for renal artery stenosis is unlikely. Though he had a inconclusive duplex scan, his abdominal exam, lack of increased Cr upon ACEi, lack of flash pulmonary edema, argue against this as the source for his HTN. The patient could have SAMIA as a contributing cause of his HTN given his obesity, SAMIA specific symptoms, and high STOPBANG score. He would benefit from a outpatient sleep study. Patient does not have characteristics of other secondary HTN causes including thyroid, pheo, parathyroidism, ESRD, aortic coarctation etc. MARY: Cr = 1.62 from 1.52. Likely HTN induced, though no previous Cr values to trend. Will obtain urine sample for light microscopy analysis. Hemoglobin: Hgb = 10.7. No iron studies available, though unlikely to be iron deficient. Acid/Base: Stable. Bicarb = 23 BMD: Calcium and phos stable. PLAN: - Discussed with primary team. Recommend starting amlodipine 10mg today in addition to Labetalol 200mg TID, Lisinopril 20mg daily, Flomax 0.8. Can use hydralazine as a PRN. Cautious use of additional BB for PRNs given bradycardia. [facility], patient will need adjustments of his BP medications. Expected agents include a diuretic. - Obtain renin/aldosterone lab test at same lab draw tomorrow AM - Recommend additional HTN workup including uric acid level and PTH level - Recommend urine protein / Cr ratio and urine albumin - Can obtain iron studies. - Will assess urine under microscopy tomorrow - Would hold off on pheo workup with plasma metanephrines. Unlikely etiology of hypertension. - OK to remove summers catheter tomorrow. Monitor for urinary retention. - Recommend sleep study upon discharge. Avoid nephrotoxic medications including NSAIDs and contrast. Thanks for letting us participate in the care of this patient. 04/09/2022 Adiel Mendosa M.D., M.P.H., M.H.A. PGY-IV Nephrology-Hypertension Fellow Page # [phone] 2nd floor, Triage Register Nurse [address] [place] [address] Associated attestation - Lan Kemp MD - 04/09/2022 9:45 PM EDT I saw and discussed the patient with the fellow and agree with the assessment and plan in his note. Patient presents with acute encephalopathy likely secondary to severe hypertension. We are asked to advise on antihypertensive regimen. He does endorse poor adherence with baseline regimen. It should benoted that patient significantly hypokalemic on presentation. Suggestive of mineralocorticoid excess. Initial aldosterone not significantly elevated we do not however have a renin level. Patient had renal artery Doppler with somewhat equivocal results however it should be noted that creatinine is downtrending in the setting of reinitiation of RAAS inhibition (would suspect lynne uptrend if hemodynamically significant renal artery stenosis present) he also has lack of alarm features such as flash pulmonary edema. Agree that obstructive sleep apnea should be evaluated and managed aggressively if present. Recommend addition of long-acting dihydropyridine calcium channel alirio. It will take several days for medication to reach therapeutic effect. Next agent should be of diuretic class. Given hypokalemia a little reluctant to suggest chlorthalidone. Will assess trend over the coming days. Consult Note - Adan Garza MD - 04/08/2022 5:56 PM EDT Patient Name: Denilson Go Patient Age: 56 y.o. Birthdate: 1965 Admit date: 04/05/2022 Attending Physician: Luther Purdy MD Ophthalmology Inpatient - Consultation Note Date of Consultation: 04/08/2022 Consult Service: Ophthalmology Place of Service: Inpatient Unit Reason for Consult: I am seeing Denilson Go at the request of neurology service for dilated exam in the setting of decreased VA. History of Present Illness: Denilson Go is a 56 y.o. male with a history of uncontrolled hypertension (not compliant on home medications) who presented to [facility] with bilateral thalamic hemorrhage. He was transferred to [facility] in the setting of blurred vision and difficult to control blood pressure. He currently complains of difficulty seeing bilaterally, although he is having a difficult time voicing precisely what his visual complaint is. Active Problem List: Active Hospital Problems Diagnosis ??? Posterior reversible encephalopathy syndrome (PRES) ??? multifocal small foci of scattered infarction in setting of PRES with hypertensive emergency ??? Hypertensive emergency ??? MARY (acute kidney injury) ??? bilat thalamic hemorrhages etiology PRES with hypertensive emergency Resolved Hospital Problems No resolved problems to display. Active Non-Hospital Problems Diagnosis ??? Rib fracture Review of Systems: Review of Systems Past Medical and Surgical History: Past Medical History: Diagnosis Date ??? HTN (hypertension) No past surgical history on file. Medications: Current Facility-Administered Medications Ordered in [facility] Medication Dose Route Frequency Provider Last Rate Last Admin ??? labetaloL (Normodyne) tablet 200 mg 200 mg Oral TID Marc Norris MD 200 mg at 04/08/22 1447 ??? tamsulosin (Flomax) capsule 0.8 mg 0.8 mg Oral Daily Marcel Delgadillo MD 0.8 mg at 04/08/22 0810 ??? heparin (porcine) (5,000 units/1 mL) subcutaneous injection 5,000 Units 5,000 Units [id number] [facility] Drake Sahra C, ANA 5,000 Units at 04/08/22 1446 ??? nicotine (Nicoderm CQ) 14 mg/24 hr patch 14 mg 1 patch Transdermal Daily Maurisio Amaya, DO And ??? nicotine (NICODERM CQ) 14 mg/24 hr patch Patch Verification 1 patch Transdermal BID Maurisio Amaya H, DO And ??? nicotine (NICODERM CQ) 14 mg/24 hr patch Patch Removal 1 patch Transdermal Daily Maurisio Amaya, DO ??? lisinopriL (Zestril) tablet 20 mg 20 mg Oral Daily Maurisio Amaya H, DO 20 mg at 04/08/22 0810 ??? sodium chloride 0.9 % (flush) (BD PosiFlush Normal Saline 0.9) flush 5-20 mL 5-20 mL IntravenousQ1 Min PRN Maurisio Amaya, DO ??? labetaloL (Normodyne) (5 mg/mL) injection solution 10-20 mg 10-20 mg Intravenous Q15 Min PRN Maurisio Amaya H, DO 10 mg at 04/07/22 0858 ??? enalaprilat (Vasotec) (1.25 mg/mL) injection 1.25 mg 1.25 mg Intravenous Q6H PRN Maurisio Amaya H, DO 1.25 mg at 04/07/22 1135 ??? niCARdipine (Cardene) (0.2 mg/mL) in sodium chloride 200 mL infusion 0-15 mg/hr Intravenous Continuous Maurisio Amaya H, DO 0 mL/hr at 04/08/22 1500 0 mg/hr at 04/08/22 1500 ??? senna-docusate (Pericolace) 8.6-50 mg per tablet 2 tablet 2 tablet Oral BID Maurisio Amaya, DO2 tablet at 04/08/22 0810 ??? polyethylene glycoL (Miralax) packet 17 g 17 g Oral Daily Maurisio Amaya H, DO 17 g at 04/08/22 0810 ??? magnesium hydroxide (Milk of Magnesia) (240 mg/mL) oral liquid 10 mL 10 mL Oral Nightly PRN Maurisio Amaya H, DO ??? bisacodyL (Dulcolax) suppository 10 mg 10 mg Rectal Daily PRN Maurisio Amaya, DO ??? acetaminophen (Tylenol) tablet 975 mg 975 mg Oral Q6H PRN Maurisio Amaya H, DO 975 mg at 04/08/22 0810 Or ??? acetaminophen (Tylenol) (32.02 mg/mL) oral liquid 975 mg 975 mg Per G Tube Q6H PRN Maurisio Amaya H, DO Or ??? acetaminophen (Tylenol) suppository 975 mg 975 mg Rectal Q6H PRN Maurisio Amaya H, DO ??? hydrALAZINE (Apresoline) (20 mg/mL) injection 10 mg 10 mg Intravenous Q4H PRN Maurisio Amaya H, DO 10 mg at 04/07/22 1010 No current [facility]-ordered outpatient medications on file. Prior To Admission Medications: Medications Prior to Admission Medication Sig Dispense Refill Last Dose ??? lisinopril (PRINIVIL;ZESTRIL) 20 mg Tablet Take 20 mg by mouth daily. Unknown at Unknown time ??? hydroCHLOROthiazide (HYDRODIURIL) 25 mg Tablet Take 25 mg by mouth daily. Unknown at Unknown time Allergies: No Known Allergies Family History: Family History Problem Relation Age of Onset ??? Aneurysm Mother ??? Aneurysm Father Social History and Habits: Social History Socioeconomic History ??? Marital status: Unknown Spouse name: Not on file ??? Number of children: Not on file ??? Years of education: Not on file ??? Highest education level: Not on file Occupational History ??? Not on file Tobacco Use ??? Smoking status: Never Smoker ??? Smokeless tobacco: Current User Types: Chew Substance and Sexual Activity ??? Alcohol use: Yes Alcohol/week: 12.0 standard drinks Types: 12 Cans of beer per week ??? Drug use: No ??? Sexual activity: Not on file Other Topics Concern ??? Not on file Social History Narrative ??? Not on file Social Determinants of Health Financial Resource Strain: Not on file Food Insecurity: Not on file Transportation Needs: Not on file Physical Activity: Not on file Housing Stability: Not on file Exam: Patient's pupils were pharmacologically dilated at 2:54. Pupils will not be a reliable indicator of neurologic status for 24 hours. Mr. Go was a very difficult bedside exam to perform given his baseline mental status changes.While assessing his extraocular movements, for instance, he would often lose attention. He is havinga difficult time voicing precisely what his visual concerns are. Bedside indirect exam was limited given patient's inability to follow complex commands. Base Eye Exam Visual Acuity Right Left Near cc 20/100 20/200 Tonometry (Applanation, 5:52 PM) Right Left Pressure 14 14 Pupils Dark Light Shape React APD Right 3 2 Round Brisk - Left 3 2 Round Brisk - Extraocular Movement Right Left Full, Ortho Full, Ortho Neuro/Psych Mood/Affect: A&ox2 Dilation Both eyes: 1.0% Mydriacyl @ 2:54 PM Additional Notes Very difficult exam given lack of patient cooperation. Slit Lamp and Fundus Exam External Exam Right Left External Normal Normal Slit Lamp Exam Right Left Lids/Lashes Normal Normal Conjunctiva/Sclera White and quiet White and quiet Cornea Clear Clear Anterior Chamber Deep and quiet Deep and quiet Iris Round and reactive Round and reactive Lens Normal Normal Anterior Vitreous Normal Normal Fundus Exam Right Left Disc Optic nerve head swelling with peripapillary hemorrhage Macula Normal Normal Vessels Tortuous, AV nicking Tortuous, AV nicking Periphery Normal Normal Diagnostic Tests/Procedures Ordered: None Assessment: Hypertensive retinopathy OU: As stated above, Mr. Go was a very difficult exam to perform at bedside given his baseline mental status changes and inability to follow complex commands. His exam did demonstrate a peripapillary hemorrhage and optic nerve head swelling OD No evidence of vitreous hemorrhage, retinal detachment, intraocular bleeding was noted. Given the limited nature of his examination, recommend he follow-up with retina team after discharge. Please reach out to ophthalmology upon discharge so we can coordinate appointment with retina specialists. Recommend aggressive antihypertensive therapy Also recommend dietary evaluation in the setting of route delivery driver during ophthalmology exam (likelynot consistent with cardiac diet) Plan: As above Recommendations are above, please page if further consultation required. Adan Garza MD PGY-2 Ophthalmology Pager #[phone] I saw the patient with the following level of supervision from the attending: Direct Associated attestation - Cheyenne Adame MD - 04/09/2022 9:05 AM EDT I have seen the patient in person and reviewed the resident's above history and exam and I agree with the details as written. The assessment and plan were formulated in discussion with me and I agree with them as documented. Initial Assessments - Preeti Hampton RN - 04/07/2022 1:28 PM EDT Office of Care Management Initial Assessment Preeti Hampton RN reviewed record. Source of Information: Meedical record, and Chart Review, Patient, Other (niece Marleny Bedor) CM Introduced self/reviewed role; services accepted. Reason for Hospitalization: Brain bleed Covid Vaccination Status: Moderna x2 Last COVID test: none in chart Past medical History: Past Medical History: Diagnosis Date ??? HTN (hypertension) Hospitalizations Within the Past 30 Days: no previous admission in last 30 days Current Decision-Making Capacity: Self If AD's have not been completed the following surrogate would be surrogate decision maker per [place] surrogate decision making law. (Only good for 180 days) Any patient receiving care in [place] must abide by [place] law. The hierarchy for surrogate decision making is: (a) Patient???s spouse, or civil union partner or common law spouse unless there is a divorce proceeding, separation agreement, or restraining order limiting that person???s relationship with the patient. (b) Any adult son or daughter of the patient. (c) Either parent of the patient. (d) Any adult brother or sister of the patient. (e) Any adult grandchild of the patient. (f) Any grandparent of the patient. (g) Any adult aunt, uncle, niece, or nephew of the patient. (h) A close friend of the patient. (i) The agent with financial power of deputy prosecuting attorney or a conservator appointed in accordance with [place] 464-A. (j) The guardian of the patient???s estate. Advance Care Planning: Attempt Cardiopulmonary Resuscitation - Inpatient <no information> -Advanced Directive: No, need to discuss (Agreed to talk to RS to complete one. Referral made) Current Coping/Education/Information Needs: doing well. Confirmed well informed by medical team Current Functional Ability: 2 assist, Assistive Equipment and Assistive Person Functional Status Prior to Admission: Independent Prior ADLs & IADLs: Independent with all ADLs & IADLs Home Environment: Others in the home: sibling(s) (lives with sister and brother in law. Kendy Shaikh). Current Living Arrangements: home/apartment/condo. Accessibility Concerns:1 LEODAN basement level with ramp to family room. Resource / Environmental Concerns: Resource/Environmental Concerns: none Current DME: none Home Address confirmed as: [address] [address] Social & Family Supports: All names listed below confirmed with patient as current and correct- Incorrect phone number for sister Noted correct one and sent to [place] to correct Extended Emergency Contact Information Primary Emergency Contact: Kendy Shaikh [facility] Relation: Other Secondary Emergency Contact: Jacquie Hernandez [facility] Relation: Other Current Care Provided by: self Provides Primary Care For: no one Caregiver if needed: sibling(s) Quality of Family relationships: helpful, involved, supportive Community Resources being provided currently: none Behavioral Health History: denied Substance Use/Abuse listed: Social History Tobacco Use Smoking Status Never Smoker Smokeless Tobacco Current User 0 No problems reported 1-2 Low level 3-5 Moderate level 6-8 Substantial level 9- 10 Severe level 0 to 7 points: Low risk 8 to 15 points: Medium risk 16 to 19 points: High risk 20 to 40 points: Addiction likely Other Pertinent/Service Specific Information: per rehab recommendations Acute rehab. Referral to Henrik [facility]/Prescription Coverage: Primary Insurance: N/A Payor: / Secondary Insurance: N/A Secondary Insurance? (Only Medicare A&B): No ; Why not?: no insurance agreed to have sophieifer screen for medicaid Prescription Coverage: No Preferred Pharmacy: No Pharmacies Listed Status: Patient is a : No Primary Care Provider: None None Patient/Caregiver Goals of Treatment: hopes to go home and return to normal functioning Potential Needs for Transition of Care: rehabilitation services Agency Referrals: Based on discussions with the multi-disciplinary healthcare team, the patient would benefit from Acute Rehab level of care at discharge. I have met with the patient to: ?? discuss discharge planning needs. ?? provide the [facility], Office of Care Management letter from the Route Sales Trainee pertaining to rehab referrals. ?? provide a letter describing our affiliations within the [facility] and educate about their right to choose where referrals are sent. ?? provide the CMS Star Quality Rating handout. ?? review the different levels of rehab including SNF, swing, and acute. ?? provide a list of facilities within their preferred geographic area. ?? request that they provide at least three choices for referral. They have requested referrals to: [facility] Acute Rehabilitation and Sub-Acute (Swing) Rehab Levels of Care [address] [place] [address] Does patient have COVID vaccine card: No requested that sister bring in. Note routed to a Business Performance Manager who will communicate referrals to facilities and provide any required information. Transportation: no concerns (does not drive) Transportation Anticipated: ambulance Concerns to be Addressed: financial/insurance Assessment: Patient is admitted to neuro service for stroke Plan: Referrals made to acute rehab Krissy Etta member of the Care Management team will continue to monitor progress, follow for continuity of care and assist with transition of care planning. Preeti Hampton RN BSN Ventilator SpecialistTufting Machine Fixer of Care Management Pager [phone] Plan of Care - Julio Cesar Lopez RN - 04/06/2022 1:35 PM EDT Transfer patient ONE TIME Question Answer Comment Reason for Transfer Needs LOWER Level of Care Level of care indicated Step-Down Responsible Team / Pager #: Vascular Neurology/[phone] Attending at time of Transfer LUTEHR PURDY Private room? No Primary Treatment Team is: NEUROLOGY STROKE PAGER [phone] - [facility] This is the Primary Team Yes 1000 Pt continues to be confused and slow to respond; according to family at bedside this is not hisbaseline. Pt is AOx2 and requires direction to answer other orientation questions. 1600 Pt more alert, orientated, and participating in answering questions. Pt states that he feels 'alot better' at this time. OUTCOME EVALUATION NOTE: OUTCOME SUMMARY: Pt had no new or worsening complaints. Pt was less responsive today with increased weakness noted inthe morning and after his MRI. After 1600 however pt was much more alert, able to answer questions appropriately and stated that he felt better. This was also after he was able to urinate using the urinal. Pt was difficult to ambulate to a standing position this morning and afternoon but was better able to ambulate in the later afternoon and early evening. Pt was up to the chair most of the later afternoon and had dinner in the chair. Pt ate more of his dinner meal than his breakfast or lunch. No SOB or difficulty breathing noted. Pt able to work with PT/OT today. Pt had improved mentation today; no new or changing neurological events noted. VSS, WCTM. PLAN MOVING FORWARD: Transferred to stepdown NSCU Q4h N/C Q2h V/s, I/o INDIVIDUALIZED FALL PREVENTION INTERVENTIONS: Patient-specific fall risk factors per assessment: recent hypertensive crisis, deconditioning Assistance: 1-2 assist, FWW Supervision: Hands on Surveillance: Bed locked in low position, call lucio within reach, purposeful hourly rounding, clutter free environment, bed/chair alarm on, family at bedside Patient-specific fall prevention interventions for sensory deficits provided:no CPG GOAL OUTCOME EVALUATION: Continue care plan as documented. documented in this encounter Plan of Treatment Upcoming Encounters Date Type Specialty Care Team Description 06/11/2022 Laboratory Appointment Lab 06/11/2022 Office Visit Nephrology Mustapha Anderson MD [facility] NEPHROLOGY DEPT [place] [address] (Myah otero) 07/01/2022 Office Visit Neurology Devendra Mayes APRN [facility] er [place] [address] (Myah otero) Scheduled Orders Name Type Priority Associated Diagnoses Order S chedule MRI Brain wwo Contrast Imaging Routine Nontraumatic subco rtical Expected: 05/15/2022, (Generic) hemorrhage of cerebral Expir es: 07/15/2022 hemisphere, unspecified laterality Scheduled Referrals Name Type Priority Associated Diagnoses Order S chedule Referral to Outpatient Routine Hypertensive Ordered: Ophthalmology Referral emergency 04/14/2022 Nontraumatic subcortical hemorrhage of cerebral hemisphere, unspecified laterality Referral to Nephrology Outpatient Routine Nontraumatic Order ed: Referral subcortical 04/14/2022 hemorrhage of cerebral hemisphere, unspecified laterality documented as of this encounter Procedures Procedure Name Priority Date/Time Associated Diagnosis Comme nts HEMOGRAM Routine 04/14/2022 12:04 Results for this PM EDT procedure are i n the results section. DIFFERENTIAL, Routine 04/14/2022 12:04 Results fo r this AUTOMATED PM EDT procedure are i n the results section. HC CBC,PLT & AUTO DIFF Routine 04/14/2022 12:04 PM EDT HC PHOSPHORUS, SERUM Routine 04/14/2022 12:04 Res ults for this PM EDT procedure are i n the results section. HC VENIPUNCTURE Routine 04/14/2022 12:04 Results for this PM EDT procedure are i n the results section. BASIC METABOLIC PANEL Routine 04/14/2022 12:04 Re sults for this (NON-FASTING) PM EDT procedure are in the results section. HEMOGRAM Routine 04/13/2022 6:08 Results for this AM EDT procedure are i n the results section. DIFFERENTIAL, Routine 04/13/2022 6:08 Results for this AUTOMATED AM EDT procedure are i n the results section. HC CBC,PLT & AUTO DIFF Routine 04/13/2022 6:08 AM EDT HC PHOSPHORUS, SERUM Routine 04/13/2022 6:08 Resu lts for this AM EDT procedure are i n the results section. HC VENIPUNCTURE Routine 04/13/2022 6:08 Results f or this AM EDT procedure are i n the results section. BASIC METABOLIC PANEL Routine 04/13/2022 6:08 Res ults for this (NON-FASTING) AM EDT procedure are in the results section. HEMOGRAM Routine 04/12/2022 4:39 Results for this AM EDT procedure are i n the results section. DIFFERENTIAL, Routine 04/12/2022 4:39 Results for this AUTOMATED AM EDT procedure are i n the results section. HC CBC,PLT & AUTO DIFF Routine 04/12/2022 4:39 AM EDT HC PHOSPHORUS, SERUM Routine 04/12/2022 4:39 Resu lts for this AM EDT procedure are i n the results section. HC MAGNESIUM, SERUM Routine 04/12/2022 4:39 Resul ts for this AM EDT procedure are i n the results section. BASIC METABOLIC PANEL Routine 04/12/2022 4:39 Res ults for this (NON-FASTING) AM EDT procedure are in the results section. U24 HRS AND VOLUME Routine 04/11/2022 11:45 Resul ts for this AM EDT procedure are i n the results section. HC PROTEIN, Routine 04/11/2022 11:45 Results for this QUANTITATIVE, URINE AM EDT procedur e are in the results section. HC MICROALBUMIN, URINE Routine 04/11/2022 11:45 R esults for this AM EDT procedure are i n the results section. CORTISOL, URINE, 24 Routine 04/11/2022 11:45 Resu lts for this HOUR AM EDT procedure are i n the results section. HEMOGRAM Routine 04/11/2022 1:20 Results for this AM EDT procedure are i n the results section. DIFFERENTIAL, Routine 04/11/2022 1:20 Results for this AUTOMATED AM EDT procedure are i n the results section. HC CBC,PLT & AUTO DIFF Routine 04/11/2022 1:20 AM EDT HC PHOSPHORUS, SERUM Routine 04/11/2022 1:20 Resu lts for this AM EDT procedure are i n the results section. HC MAGNESIUM, SERUM Routine 04/11/2022 1:20 Resul ts for this AM EDT procedure are i n the results section. LIPID PANEL (REFLEX Routine 04/11/2022 1:20 Resul ts for this DIRECT LDL) AM EDT procedure are i n the results section. BASIC METABOLIC PANEL Routine 04/11/2022 1:20 Res ults for this (NON-FASTING) AM EDT procedure are in the results section. HC TROPONIN T STAT 04/10/2022 3:54 Results for this PM EDT procedure are i n the results section. HC PARATHYROID Routine 04/10/2022 9:39 Results fo r this HORMONE(PTH INTACT AM EDT procedure are in the results section. LAVENDER TUBE HOLD Routine 04/10/2022 9:39 Result s for this AM EDT procedure are i n the results section. HC IRON BINDING Routine 04/10/2022 9:39 Results f or this CAPACITY AM EDT procedure are i n the results section. HC URIC ACID, SERUM Routine 04/10/2022 9:39 Resul ts for this AM EDT procedure are i n the results section. EKG 12-LEAD Routine 04/10/2022 9:35 Troponinemia likely Resul ts for this AM EDT demand ischemia procedure ar e in the results section. HEMOGRAM Routine 04/10/2022 4:35 Results for this AM EDT procedure are i n the results section. DIFFERENTIAL, Routine 04/10/2022 4:35 Results for this AUTOMATED AM EDT procedure are i n the results section. HC PCH RENIN, PLASMA Routine 04/10/2022 4:35 Resu lts for this AM EDT procedure are i n the results section. HC CBC,PLT & AUTO DIFF Routine 04/10/2022 4:35 AM EDT HC TROPONIN T Routine 04/10/2022 4:35 Results for this AM EDT procedure are i n the results section. HC PHOSPHORUS, SERUM Routine 04/10/2022 4:35 Resu lts for this AM EDT procedure are i n the results section. HC MAGNESIUM, SERUM Routine 04/10/2022 4:35 Resul ts for this AM EDT procedure are i n the results section. BASIC METABOLIC PANEL Routine 04/10/2022 4:35 Res ults for this (NON-FASTING) AM EDT procedure are in the results section. HC TROPONIN T STAT 04/09/2022 11:55 Results fo r this AM EDT procedure are i n the results section. EKG 12-LEAD Routine 04/09/2022 10:15 Posterior reversible Res ults for this AM EDT encephalopathy procedure are in syndrome (PRES) the results section. URINALYSIS MICROSCOPIC Routine 04/09/2022 10:00 R esults for this EXAM AM EDT procedure are i n the results section. URINALYSIS WITH REFLEX Routine 04/09/2022 10:00 R esults for this CULTURE AM EDT procedure are i n the results section. HEMOGRAM Routine 04/09/2022 12:50 Results for this AM EDT procedure are i n the results section. DIFFERENTIAL, Routine 04/09/2022 12:50 Results fo r this AUTOMATED AM EDT procedure are i n the results section. HC CBC,PLT & AUTO DIFF Routine 04/09/2022 12:50 AM EDT HC TROPONIN T Routine 04/09/2022 12:50 Results fo r this AM EDT procedure are i n the results section. HC PHOSPHORUS, SERUM Routine 04/09/2022 12:50 Res ults for this AM EDT procedure are i n the results section. HC MAGNESIUM, SERUM Routine 04/09/2022 12:50 Resu lts for this AM EDT procedure are i n the results section. BASIC METABOLIC PANEL Routine 04/09/2022 12:50 Re sults for this (NON-FASTING) AM EDT procedure are in the results section. HEMOGRAM Routine 04/08/2022 1:20 Results for this AM EDT procedure are i n the results section. DIFFERENTIAL, Routine 04/08/2022 1:20 Results for this AUTOMATED AM EDT procedure are i n the results section. HC CBC,PLT & AUTO DIFF Routine 04/08/2022 1:20 AM EDT HC PHOSPHORUS, SERUM Routine 04/08/2022 1:20 Resu lts for this AM EDT procedure are i n the results section. HC MAGNESIUM, SERUM Routine 04/08/2022 1:20 Resul ts for this AM EDT procedure are i n the results section. BASIC METABOLIC PANEL Routine 04/08/2022 1:20 Res ults for this (NON-FASTING) AM EDT procedure are in the results section. ECHOCARDIOGRAM Routine 04/07/2022 2:38 Nontraumatic Results fo r this COMPLETE PM EDT intracerebral procedure are in hemorrhage, the results unspecified cerebral section . location, unspecified laterality RENAL DUPLEX COMPLETE Routine 04/07/2022 1:16 Nontraumatic mul tiple Results for this PM EDT localized procedure are i n intracerebral the results hemorrhages, section. unspecified laterality HEMOGRAM Routine 04/07/2022 4:30 Results for this AM EDT procedure are i n the results section. DIFFERENTIAL, Routine 04/07/2022 4:30 Results for this AUTOMATED AM EDT procedure are i n the results section. HC CBC,PLT & AUTO DIFF Routine 04/07/2022 4:30 AM EDT HC PHOSPHORUS, SERUM Routine 04/07/2022 4:30 Resu lts for this AM EDT procedure are i n the results section. HC MAGNESIUM, SERUM Routine 04/07/2022 4:30 Resul ts for this AM EDT procedure are i n the results section. HEMOGLOBIN A1C Routine 04/07/2022 4:30 Results fo r this AM EDT procedure are i n the results section. BASIC METABOLIC PANEL Routine 04/07/2022 4:30 Res ults for this (NON-FASTING) AM EDT procedure are in the results section. RAPID DRUG SCREEN, Routine 04/07/2022 1:18 Result s for this URINE (CAITLIN REQUEST) AM EDT procedur e are in the results section. RAPID DRUG SCREEN W/O Routine 04/07/2022 1:18 Res ults for this CONFIRMATION, URINE AM EDT procedur e are in the results section. HC POTASSIUM Routine 04/06/2022 6:00 Results for this PM EDT procedure are i n the results section. HC PCH ALDOSTERONE, Routine 04/06/2022 2:35 Resul ts for this SERUM PM EDT procedure are i n the results section. HC THYROID STIMULATING Routine 04/06/2022 2:35 Re sults for this HORMONE, SERUM PM EDT procedure are in the results section. HC FREE THYROXINE (T4) Routine 04/06/2022 2:35 Re sults for this PM EDT procedure are i n the results section. HC TROPONIN T STAT 04/06/2022 10:10 Results fo r this AM EDT procedure are i n the results section. HC POTASSIUM Routine 04/06/2022 10:10 Results for this AM EDT procedure are i n the results section. MRI HEAD ANGIOGRAM WO Routine 04/06/2022 9:42 Res ults for this CONTRAST AM EDT procedure are i n the results section. MRI BRAIN WWO CONTRAST Routine 04/06/2022 9:42 Re sults for this (GENERIC) AM EDT procedure are i n the results section. HEMOGRAM Routine 04/06/2022 4:15 Results for this AM EDT procedure are i n the results section. DIFFERENTIAL, Routine 04/06/2022 4:15 Results for this AUTOMATED AM EDT procedure are i n the results section. HC CBC,PLT & AUTO DIFF Routine 04/06/2022 4:15 AM EDT HC TROPONIN T STAT 04/06/2022 4:15 Results for this AM EDT procedure are i n the results section. HC PHOSPHORUS, SERUM Routine 04/06/2022 4:15 Resu lts for this AM EDT procedure are i n the results section. HC MAGNESIUM, SERUM Routine 04/06/2022 4:15 Resul ts for this AM EDT procedure are i n the results section. BASIC METABOLIC PANEL Routine 04/06/2022 4:15 Res ults for this (NON-FASTING) AM EDT procedure are in the results section. HC URINALYSIS ROUTINE Routine 04/06/2022 2:13 Res ults for this AM EDT procedure are i n the results section. URINE HOLD Routine 04/06/2022 2:13 Results for this AM EDT procedure are i n the results section. GOLD TUBE HOLD STAT 04/05/2022 10:39 Results f or this PM EDT procedure are i n the results section. ALDOSTERONE STAT 04/05/2022 10:39 Results for this PM EDT procedure are i n the results section. HC TROPONIN T STAT 04/05/2022 10:39 Results fo r this PM EDT procedure are i n the results section. POCT GLUCOSE Routine 04/05/2022 8:52 Results for this PM EDT procedure are i n the results section. TYPE AND SCREEN Routine 04/05/2022 7:43 Results f or this VALIDITY PM EDT procedure are i n the results section. ABORH RECHECK STATUS Routine 04/05/2022 7:43 Resu lts for this PM EDT procedure are i n the results section. ABO/RH TYPING Routine 04/05/2022 7:43 Results for this PM EDT procedure are i n the results section. ANTIBODY SCREEN Routine 04/05/2022 7:43 Results f or this PM EDT procedure are i n the results section. HC ABO-MICROTITER Routine 04/05/2022 7:[address] HEAD WO CONTRAST Timed 04/05/2022 6:39 Resul ts for this (GENERIC) PM EDT procedure are i n the results section. EKG 12-LEAD Routine 04/05/2022 4:08 Nontraumatic Results for this PM EDT intracerebral procedure are in hemorrhage, the results unspecified cerebral section . location, unspecified laterality POCT GLUCOSE Routine 04/05/2022 3:48 Results for this PM EDT procedure are i n the results section. HC PARTIAL Routine 04/05/2022 3:35 Results for this THROMBOPLASTIN TIME PM EDT procedur e are in the results section. HC PROTHROMBIN TIME Routine 04/05/2022 3:35 Resul ts for this PM EDT procedure are i n the results section. HC TROPONIN T Routine 04/05/2022 3:35 Results for this PM EDT procedure are i n the results section. HC THYROID STIMULATING Routine 04/05/2022 3:35 Re sults for this HORMONE, SERUM PM EDT procedure are in the results section. HEPATIC FUNCTION PANEL Routine 04/05/2022 3:35 Re sults for this PM EDT procedure are i n the results section. documented in this encounter Results Differential, Automated (04/14/2022 12:04 PM EDT) athologist Signature Neutrophils % 73.5 % [facility] LABORATORY Neutr Abs (ANC) 5.37 1.70 - [facility] 6.10 [facility] x10(3)/[facility] LABORATORY Lymphocytes % 14.1 % [facility] Lymphocytes Abs 1.0 0.9 - 3.2 [facility] x10(3)/[facility] LABORATORY Monocytes % 8.1 % [facility] Monocyte Abs 0.6 0.3 - 0.9 [facility] x10(3)/[facility] LABORATORY Eosinophils % 3.3 % [facility] Eosinophils Abs 0.2 0.0 - 0.4 [facility] x10(3)/[facility] LABORATORY Basophils % 0.5 % [facility] Basophils Abs 0.0 0.0 - 0.1 [facility] x10(3)/[facility] LABORATORY Immature Gran % 0.50 % [facility] Comment: Immature granulocytes(IG's)percentage an d absolute count will include metamyelocytes, myelocytes, and promyelo cytes. Blood smears from CBCs yielding IG's will be scanned manually for concor dance. If this scan disagrees with the automated IG or if promyelocytes are not ed, a manual differential will be performed. [place] Gran Abs 0.04 0.00 - 0.04 x10(3)/[facility] MAR Y [facility] LABORATORY Specimen Anatomical Collection Method Collection Time Receive d Time (Source) Location / / Volume Laterality Blood 04/14/2022 12:04 04/14/2022 PM EDT 12:13 PM EDT Resulting Agency Comment Spec In Lab Marc Norris MD HEMATOLOGY ORDERABLES Performing Organization Address City/State/[place] [address] (ABNORMAL) Hemogram (04/14/2022 12:04 PM EDT) Analysis Performed At Patho logist Time Signature WBC 7.3 4.0 - 9.5 [facility] LABORATORY RBC 3.98 (L) 4.58 - [facility] 5.54 [facility] x10(6)/[facility] LABORATORY Hemoglobin 12.0 (L) 13.7 - [facility]/dL [facility]ORY Hematocrit 35.1 (L) 40.5 - [facility] 48.5 % [facility] MCV 88.2 82.9 - [facility] 93.1 [facility] LABORATORY MCH 30.2 27.5 - [facility] 32.1 pg [facility] MCHC 34.2 32.0 - [facility] 35.7 g/dL [facility] Platelets 269 145 - 357 [facility] x10(3)/[facility] LABORATORY RDWSD 42.2 36.0 - [facility] ST[facility] 45.0 [facility] LABORATORY RDWCV 12.9 11.4 - [facility] 13.8 % [facility] LABORATORY MPV 10.1 7.6 - 12.9 [facility] LABORATORY nRBC % Auto 0.0 % [facility] nRBC Abs Auto 0.000 0.000 - [facility] 0.000 [facility] x10(3)/[facility] LABORATORY Specimen Anatomical Collection Method Collection Time Receive d Time (Source) Location / / Volume Laterality Blood 04/14/2022 12:04 04/14/2022 PM EDT 12:13 PM EDT Resulting Agency Comment Spec In Lab Marc Norris MD HEMATOLOGY ORDERABLES Performing Organization Address City/State/[place] [address] (ABNORMAL) Basic Metabolic Panel (non-fasting) (04/14/2022 12:04 PM EDT) P athologist Signature Glucose Lvl 113 65 - 199 [facility] mg/dL [facility] Comment: Diabetes: >=200 mg/dL plus symp toms BUN 29 (H) 10 - 20 mg/dL [facility] Creatinine 2.11 (H) 0.80 - 1.50 mg/dL [facility] Sodium 134 (L) 135 - 145 mmol/L [facility] Potassium 4.8 3.5 - 5.0 mmol/L [facility] Comment: Please note: ??Patients with WBC >100,00 0 may have falsely elevated Potassium levels. ??For accurate Potassium quantif ication in these patients send serum separator tube (gold top) for subsequent determinations. ??Contact the Clinical Chemistry Laboratory if there are any qu estions. Chloride 100 98 - 107 mmol/L [facility] CO2 24 22 - 31 mmol/L [facility] Anion Gap 10 5 - 15 mmol/L [facility]ORY Calcium 9.6 8.5 - 10.5 mg/dL [facility] Estimated GFR 36 (L) >=60 mL/min/1.73 m?? [facility] Comment: This patient's estimated GFR was calcula agustin using the 2020 CKD-EPI equation. The estimated GFR can vary from the satinder ured GFR by up to 30% in the absence of rapidly changing kidney function. Assess ment of the estimated GFR is not appropriate when creatinine concentratio ns are rapidly changing. For clinical situations in which a more precise estim ate of GFR is necessary, consider alternative methods of GFR estimation carlson ch as a 24-hour urine creatinine clearance. Assignment of CKD stage 1-5 for patients with an eGFR near the transition point between stages may be based on clinical assessment of muscle mass and symptoms in addition to eGFR. Specimen Anatomical Collection Method Collection Time Receive d Time (Source) Location / / Volume Laterality Blood 04/14/2022 12:04 04/14/2022 PM EDT 12:13 PM EDT Resulting Agency Comment Spec In Lab Luther Purdy MD CHEMISTRY ORDERABLES Performing Organization Address City/State/ZIP Code Phon e Number [address] Phosphorus (04/14/2022 12:04 PM EDT) athologist Signature Phosphorus 4.2 2.5 - 4.5 [facility] mg/dL [facility] LABORATORY Specimen Anatomical Collection Method Collection Time Receive d Time (Source) Location / / Volume Laterality Blood 04/14/2022 12:04 04/14/2022 PM EDT 12:13 PM EDT Resulting Agency Comment Spec In Lab Luther Purdy MD CHEMISTRY ORDERABLES Performing Organization Address City/[facility]/ZIP Code Phon e Number [address] Magnesium (04/14/2022 12:04 PM EDT) athologist Signature Magnesium 0.91 0.69 - 1.07 [facility] mmol/L [facility] LABORATORY Specimen Anatomical Collection Method Collection Time Receive d Time (Source) Location / / Volume Laterality Blood 04/14/2022 12:04 04/14/2022 PM EDT 12:13 PM EDT Resulting Agency Comment Spec In Lab Luther Purdy MD CHEMISTRY ORDERABLES Performing Organization Address City/[facility]/ZIP Code Phon e Number [address] Differential, Automated (04/13/2022 6:08 AM EDT) athologist Signature Neutrophils % 64.5 % [facility] Neutr Abs (ANC) 3.37 1.70 - [facility] 6.10 [facility] x10(3)/[facility] LABORATORY Lymphocytes % 20.5 % [facility] Lymphocytes Abs 1.1 0.9 - 3.2 [facility] x10(3)/[facility] LABORATORY Monocytes % 9.4 % [facility] Monocyte Abs 0.5 0.3 - 0.9 [facility] x10(3)/[facility] LABORATORY Eosinophils % 4.4 % [facility] Eosinophils Abs 0.2 0.0 - 0.4 [facility] x10(3)/[facility] LABORATORY Basophils % 0.8 % [facility] Basophils Abs 0.0 0.0 - 0.1 [facility] x10(3)/[facility] LABORATORY Immature Gran % 0.40 % [facility] Comment: Immature granulocytes(IG's)percentage an d absolute count will include metamyelocytes, myelocytes, and promyelo cytes. Blood smears from CBCs yielding IG's will be scanned manually for concor dance. If this scan disagrees with the automated IG or if promyelocytes are not ed, a manual differential will be performed. [place] Gran Abs 0.02 0.00 - 0.04 x10(3)/[facility] MAR Y [facility] LABORATORY Specimen Anatomical Collection Method Collection Time Receive d Time (Source) Location / / Volume Laterality Blood 04/13/2022 6:08 AM 6:55 EDT AM EDT Resulting Agency Comment Spec In Lab Marc Norris MD HEMATOLOGY ORDERABLES Performing Organization Address City/State/[place] [address] (ABNORMAL) Hemogram (04/13/2022 6:08 AM EDT) Analysis Performed At Patho logist Time Signature WBC 5.2 4.0 - 9.5 [facility] x10(3)/[facility] LABORATORY RBC 3.51 (L) 4.58 - [facility].54 [facility] x10(6)/[facility] LABORATORY Hemoglobin 10.9 (L) 13.7 - [facility] 16.5 g/dL [facility] Hematocrit 31.3 (L) 40.5 - [facility] 48.5 % [facility] MCV 89.2 82.9 - [facility] 93.1 fL [facility] MCH 31.1 27.5 - [facility] 32.1 pg [facility] MCHC 34.8 32.0 - [facility] 35.7 g/dL [facility] Platelets 203 145 - 357 [facility] x10(3)/[facility] LABORATORY RDWSD 43.0 36.0 - [facility] 45.0 [facility] LABORATORY RDWCV 13.2 11.4 - [facility] 13.8 % [facility] LABORATORY MPV 10.2 7.6 - 12.9 [facility] LABORATORY nRBC % Auto 0.0 % [facility] LABORATORY nRBC Abs Auto 0.000 0.000 - [facility] 0.000 [facility] x10(3)/[facility] LABORATORY Specimen Anatomical Collection Method Collection Time Receive d Time (Source) Location / / Volume Laterality Blood 04/13/2022 6:08 AM 6:55 EDT AM EDT Resulting Agency Comment Spec In Lab Marc Norris MD HEMATOLOGY ORDERABLES Performing Organization Address City/State/[place] [address] (ABNORMAL) Basic Metabolic Panel (non-fasting) (04/13/2022 6:08 AM EDT) P athologist Signature Glucose Lvl 93 65 - 199 [facility] mg/dL [facility] Comment: Diabetes: >=200 mg/dL plus symp toms BUN 25 (H) 10 - 20 mg/dL [facility]ORY Creatinine 1.77 (H) 0.80 - 1.50 mg/dL [facility] Sodium 134 (L) 135 - 145 mmol/L [facility] Potassium 4.0 3.5 - 5.0 mmol/L [facility] Comment: Please note: ??Patients with WBC >100,00 0 may have falsely elevated Potassium levels. ??For accurate Potassium quantif ication in these patients send serum separator tube (gold top) for subsequent determinations. ??Contact the Clinical Chemistry Laboratory if there are any qu estions. Chloride 100 98 - 107 mmol/L [facility] CO2 25 22 - 31 mmol/L [facility] Anion Gap 9 5 - 15 mmol/L [facility] Calcium 9.0 8.5 - 10.5 mg/dL [facility] Estimated GFR 44 (L) >=60 mL/min/1.73 m?? [facility] Comment: This patient's estimated GFR was calcula agustin using the 2020 CKD-EPI equation. The estimated GFR can vary from the satinder ured GFR by up to 30% in the absence of rapidly changing kidney function. Assess ment of the estimated GFR is not appropriate when creatinine concentratio ns are rapidly changing. For clinical situations in which a more precise estim ate of GFR is necessary, consider alternative methods of GFR estimation carlson ch as a 24-hour urine creatinine clearance. Assignment of CKD stage 1-5 for patients with an eGFR near the transition point between stages may be based on clinical assessment of muscle mass and symptoms in addition to eGFR. Specimen Anatomical Collection Method Collection Time Receive d Time (Source) Location / / Volume Laterality Blood 04/13/2022 6:08 AM 2 6:55 EDT AM EDT Resulting Agency Comment Spec In Lab Luther Purdy MD CHEMISTRY ORDERABLES Performing Organization Address City/[facility]/ZIP Code Phon e Number [address] Phosphorus (04/13/2022 6:08 AM EDT) athologist Signature Phosphorus 3.9 2.5 - 4.5 [facility]ORY Specimen Anatomical Collection Method Collection Time Receive d Time (Source) Location / / Volume Laterality Blood 04/13/2022 6:08 AM 2 6:55 EDT AM EDT Resulting Agency Comment Spec In Lab Luther Purdy MD CHEMISTRY ORDERABLES Performing Organization Address City/State/ZIP Code Phon e Number [address] Magnesium (04/13/2022 6:08 AM EDT) P athologist Signature Magnesium 0.86 0.69 - 1.07 [facility] mmol/L [facility] LAB[facility]ORY Specimen Anatomical Collection Method Collection Time Receive d Time (Source) Location / / Volume Laterality Blood 04/13/2022 6:08 AM 2 6:55 EDT AM EDT Resulting Agency Comment Spec In Lab Luther Purdy MD CHEMISTRY ORDERABLES Performing Organization Address City/State/ZIP Code Phon e Number [address] Differential, Automated (04/12/2022 4:39 AM EDT) athologist Signature Neutrophils % 67.7 % [facility] Neutr Abs (ANC) 4.30 1.70 - [facility] 6.10 [facility] x10(3)/[facility] LABORATORY Lymphocytes % 17.0 % [facility] Lymphocytes Abs 1.1 0.9 - 3.2 [facility] x10(3)/[facility] LABORATORY Monocytes % 9.6 % [facility] Monocyte Abs 0.6 0.3 - 0.9 [facility] x10(3)/[facility] LABORATORY Eosinophils % 4.4 % [facility] Eosinophils Abs 0.3 0.0 - 0.4 [facility] x10(3)/[facility] LABORATORY Basophils % 0.8 % [facility] Basophils Abs 0.0 0.0 - 0.1 [facility] x10(3)/[facility] LABORATORY Immature Gran % 0.50 % [facility] Comment: Immature granulocytes(IG's)percentage an d absolute count will include metamyelocytes, myelocytes, and promyelo cytes. Blood smears from CBCs yielding IG's will be scanned manually for concor dance. If this scan disagrees with the automated IG or if promyelocytes are not ed, a manual differential will be performed. [place] Gran Abs 0.03 0.00 - 0.04 x10(3)/[facility] MAR Y [facility] LABORATORY Specimen Anatomical Collection Method Collection Time Receive d Time (Source) Location / / Volume Laterality Blood 04/12/2022 4:39 AM 5:04 EDT AM EDT Resulting Agency Comment Spec In Lab Marc Norris MD HEMATOLOGY ORDERABLES Performing Organization Address City/[facility]/ZIP Code Phon e Number [address] (ABNORMAL) Hemogram (04/12/2022 4:39 AM EDT) Analysis Performed At Patho logist Time Signature WBC 6.4 4.0 - 9.5 [facility] x10(3)/[facility] LABORATORY RBC 3.58 (L) 4.58 - [facility] 5.54 [facility] x10(6)/[facility] LABORATORY Hemoglobin 10.8 (L) 13.7 - [facility] g/dL [facility] Hematocrit 32.0 (L) 40.5 - [facility] 48.5 % [facility] MCV 89.4 82.9 - [facility] 93.1 [facility] LABORATORY MCH 30.2 27.5 - [facility] 32.1 pg [facility] MCHC 33.8 32.0 - [facility] 35.7 g/dL [facility] Platelets 192 145 - 357 [facility] x10(3)/[facility] LABORATORY RDWSD 43.2 36.0 - [facility] 45.0 [facility] LABORATORY RDWCV 13.2 11.4 - [facility] ST[facility] 13.8 % [facility] LABORATORY MPV 10.1 7.6 - 12.9 [facility] LABORATORY nRBC % Auto 0.0 % [facility]ORY nRBC Abs Auto 0.000 0.000 - [facility] 0.000 [facility] x10(3)/[facility] LABORATORY Specimen Anatomical Collection Method Collection Time Receive d Time (Source) Location / / Volume Laterality Blood 04/12/2022 4:39 AM 5:04 EDT AM EDT Resulting Agency Comment Spec In Lab Marc Norris MD HEMATOLOGY ORDERABLES Performing Organization Address City/State/[place] [address] (ABNORMAL) Basic Metabolic Panel (non-fasting) (04/12/2022 4:39 AM EDT) P athologist Signature Glucose Lvl 97 65 - 199 [facility] mg/dL [facility] Comment: Diabetes: >=200 mg/dL plus symp toms BUN 24 (H) 10 - 20 mg/dL [facility] Creatinine 1.58 (H) 0.80 - 1.50 mg/dL [facility] Sodium 135 135 - 145 mmol/L [facility] Potassium 4.1 3.5 - 5.0 mmol/L [facility] Comment: Please note: ??Patients with WBC >100,00 0 may have falsely elevated Potassium levels. ??For accurate Potassium quantif ication in these patients send serum separator tube (gold top) for subsequent determinations. ??Contact the Clinical Chemistry Laboratory if there are any qu estions. Chloride 101 98 - 107 mmol/L [facility] CO2 25 22 - 31 mmol/L [facility] Anion Gap 9 5 - 15 mmol/L [facility] Calcium 9.0 8.5 - 10.5 mg/dL [facility] Estimated GFR 50 (L) >=60 mL/min/1.73 m?? [facility] Comment: This patient's estimated GFR was calcula agustin using the 2020 CKD-EPI equation. The estimated GFR can vary from the satinder ured GFR by up to 30% in the absence of rapidly changing kidney function. Assess ment of the estimated GFR is not appropriate when creatinine concentratio ns are rapidly changing. For clinical situations in which a more precise estim ate of GFR is necessary, consider alternative methods of GFR estimation carlson ch as a 24-hour urine creatinine clearance. Assignment of CKD stage 1-5 for patients with an eGFR near the transition point between stages may be based on clinical assessment of muscle mass and symptoms in addition to eGFR. Specimen Anatomical Collection Method Collection Time Receive d Time (Source) Location / / Volume Laterality Blood 04/12/2022 4:39 AM 5:04 EDT AM EDT Resulting Agency Comment Spec In Lab Luther Purdy MD CHEMISTRY ORDERABLES Performing Organization Address City/State/[place] [address] Phosphorus (04/12/2022 4:39 AM EDT) athologist Signature Phosphorus 3.6 2.5 - 4.5 [facility]/dL [facility] LAB[facility]ORY Specimen Anatomical Collection Method Collection Time Receive d Time (Source) Location / / Volume Laterality Blood 04/12/2022 4:39 AM 2 5:04 EDT AM EDT Resulting Agency Comment Spec In Lab Luther Purdy MD CHEMISTRY ORDERABLES Performing Organization Address City/[facility]/ZIP Code Phon e Number [address] Magnesium (04/12/2022 4:39 AM EDT) athologist Signature Magnesium 0.84 0.69 - 1.07 [facility] mmol/L [facility] LABORATORY Specimen Anatomical Collection Method Collection Time Receive d Time (Source) Location / / Volume Laterality Blood 04/12/2022 4:39 AM 2 5:04 EDT AM EDT Resulting Agency Comment Spec In Lab Luther Purdy MD CHEMISTRY ORDERABLES Performing Organization Address City/[facility]/ZIP Code Phon e Number [address] Cortisol, urine, 24 hour (04/11/2022 11:45 AM EDT) athologist Signature U24 Cortisol 13 3.5 - 45 [facility] mcg/24hr [facility] LABORATORY Comment: Test Performed by: [facility] [address] [address] [employer] Manager: Ruben Prasad M.D. Ph. D.; CLIA# [id number] Specimen Anatomical Collection Method Collection Time Receive d Time (Source) Location / / Volume Laterality Urine Urine / Unknown 04/11/2022 11:45 04/14/20 22 8:47 AM EDT AM EDT Resulting Agency Comment Spec In Lab Adiel Daniel MD URINE ORDERABLES Performing Organization Address City/[facility]/ZIP Code Phon e Number [address] U24 Hrs and Volume (04/11/2022 11:45 AM EDT) athologist Signature Hours 24 hour(s) [facility] LABORATORY Urine TV (ml) 1,750 mL [facility] LABORATORY Specimen Anatomical Collection Method Collection Time Receive d Time (Source) Location / / Volume Laterality Urine 04/11/2022 11:45 04/11/2022 3:20 AM EDT PM EDT Resulting Agency Comment Spec In Lab Isaac Shell DO CHEMISTRY ORDERABLES Performing Organization Address City/[facility]/ZIP Code Phon e Number [address] (ABNORMAL) Urine Albumin, 24 Hour (04/11/2022 11:45 AM EDT) P athologist Signature U Albumin/24h 103 (H) 0 - 29 [facility] mg/24hr [facility] LABORATORY Comment: Reference Range: <30 mg/24h: Normal 30-300 mg/24h: Moderately increased albu minuria.* >300 mg/24h: Severely increased albuminu irma. * ACEI or ARB recommended if diabetic; s uggested if BP>130/80 without diabetes ACEI or ARB strongly recommended if di abetic; recommended if BP>130/80 without diabetes Two of three specimens collected within a 3 to 6 month period should be abnormal before considering a patient to have albuminuria. Transient causes: exercise, fever, infection, CHF, marked hyperglycemia or hypertension. Persistent albuminuria indicates CKD and is an independent risk factor for ASCVD. ADA Standards of Medical Care in Diabete s-2016; KDIGO: Kidney International Supplements (2012) 2, 357? 362 U24 Albumin Concentration 58.9 mg/L [facility] LABORATORY Specimen Anatomical Collection Method Collection Time Receive d Time (Source) Location / / Volume Laterality Urine 04/11/2022 11:45 04/11/2022 3:20 AM EDT PM EDT Resulting Agency Comment Spec In Lab Luther Purdy MD URINE ORDERABLES Performing Organization Address City/[facility]/ZIP Code Phon e Number [address] (ABNORMAL) Protein/Creatinine Ratio, urine (04/11/2022 11:45 AM EDT) athologist Signature U Creatinine 83 mg/dL [facility] LABORATORY U Protein Ran 18 (H) 0 - 12 [facility] mg/dL [facility] LABORATORY Prot/Cre Ratio 0.2 ratio [facility] LABORATORY Specimen Anatomical Collection Method Collection Time Receive d Time (Source) Location / / Volume Laterality Urine 04/11/2022 11:45 04/11/2022 3:20 AM EDT PM EDT Resulting Agency Comment Spec In Lab Luther Purdy MD URINE ORDERABLES Performing Organization Address City/State/[place] [address] Lipid Panel (Reflex Direct LDL) (04/11/2022 1:20 AM EDT) athologist Signature Chol, Total 120 mg/dL [facility] LABORATORY Comment: Lower Risk: <200 mg/dL Average Risk: 200-239 mg/dL Higher Risk: >ni=308 mg/dL Triglycerides 117 mg/dL [facility] LABORATORY Comment: Average Risk/Lower Risk: <150 mg/dL Borderline High Risk: 150-199 mg/dL High Risk: 200-499 mg/dL Very High Risk: >vn=839 mg/dL HDL 32 mg/dL [facility] LABORATORY Comment: Males: ?? Higher Risk: <40 mg/dL Females: ?? Higher Risk: <50 mg/dL LDL Cholesterol 65 mg/dL [facility] LABORATORY Comment: Lowest Risk: <100 mg/dL Lower Risk: 100-129 mg/dL Borderline High Risk: 130-159 mg/dL High Risk: 160-189 mg/dL Very High Risk: >xx=307 mg/dL Chol/HDL Ratio 3.8 ratio [facility] LABORATORY Lipid Interpretation See Note [facility] LABORATORY Comment: Lipid management should be guided by a p atient? s ASCVD risk, goals and preferences. ACC/AHA Guidelines recommend high intens ity statin if clinical ASCVD or LDL greater than or equal to 190 mg/dL. [email or web address] Adults aged 40-75 with LDL 70-189 mg/dL should have their 10 year ASCVD risk estimated with the ACC/AHA ASCVD risk es timator http://tools.acc.org/AEREK-Aenk-Foeuqwix r/ Statin should be discussed if risk great er than or equal to 7.5% in non-diabetics. With diabetes, moderate i ntensity statin is recommended if risk less than 7.5%, high intensity if risk g reater than or equal to 7.5%. Annual lipid monitoring on statins is no t necessary. Evaluate secondary causes of Triglycerid es greater than 500 mg/dL or LDL greater than 190 mg/dL: See table 6 of A CC/AHA Guideline. Lifestyle modification is a critical com ponent of ASCVD risk reduction. Specimen Anatomical Collection Method Collection Time Receive d Time (Source) Location / / Volume Laterality Blood Venous Draw / 04/11/2022 1:20 AM 04/11/20 1:33 Unknown EDT AM EDT Resulting Agency Comment Spec In Lab Geovanni Bell MD CHEMISTRY ORDERABLES Performing Organization Address City/State/[place] [address] Differential, Automated (04/11/2022 1:20 AM EDT) P athologist Signature Neutrophils % 66.2 % [facility] LABORATORY Neutr Abs (ANC) 4.12 1.70 - [facility] 6.10 [facility] x10(3)/[facility] LABORATORY Lymphocytes % 20.6 % [facility] LABORATORY Lymphocytes Abs 1.3 0.9 - 3.2 [facility] x10(3)/[facility] LABORATORY Monocytes % 7.6 % [facility] LABORATORY Monocyte Abs 0.5 0.3 - 0.9 [facility] x10(3)/[facility] LABORATORY Eosinophils % 4.5 % [facility] LABORATORY Eosinophils Abs 0.3 0.0 - 0.4 [facility] x10(3)/[facility] LABORATORY Basophils % 0.6 % [facility] LABORATORY Basophils Abs 0.0 0.0 - 0.1 [facility] x10(3)/[facility] LABORATORY Immature Gran % 0.50 % [facility] LABORATORY Comment: Immature granulocytes(IG's)percentage an d absolute count will include metamyelocytes, myelocytes, and promyelo cytes. Blood smears from CBCs yielding IG's will be scanned manually for concor dance. If this scan disagrees with the automated IG or if promyelocytes are not ed, a manual differential will be performed. [place] Abs 0.03 0.00 - 0.04 x10(3)/[facility] MAR Y [facility] LABORATORY Specimen Anatomical Collection Method Collection Time Receive d Time (Source) Location / / Volume Laterality Blood 04/11/2022 1:20 AM 1:31 EDT AM EDT Resulting Agency Comment Spec In Lab Marc Norris MD HEMATOLOGY ORDERABLES Performing Organization Address City/State/[place] [address] (ABNORMAL) Hemogram (04/11/2022 1:20 AM EDT) Analysis Performed At Patho logist Time Signature WBC 6.2 4.0 - 9.5 [facility] x10(3)/[facility] LABORATORY RBC 3.50 (L) 4.58 - [facility] 5.54 [facility] x10(6)/[facility] LABORATORY Hemoglobin 10.5 (L) 13.7 - [facility] 16.5 g/dL [facility] LABORATORY Hematocrit 31.4 (L) 40.5 - [facility] 48.5 % [facility] LABORATORY MCV 89.7 82.9 - [facility] 93.1 [facility] LABORATORY MCH 30.0 27.5 - [facility] 32.1 pg [facility] LABORATORY MCHC 33.4 32.0 - [facility] 35.7 g/dL [facility] LABORATORY Platelets 197 145 - 357 [facility] x10(3)/[facility] LABORATORY RDWSD 43.7 36.0 - [facility] 45.0 [facility] LABORATORY RDWCV 13.3 11.4 - [facility] 13.8 % [facility] LABORATORY MPV 10.0 7.6 - 12.9 [facility] LABORATORY nRBC % Auto 0.0 % [facility] LABORATORY nRBC Abs Auto 0.000 0.000 - [facility] 0.000 [facility] x10(3)/[facility] LABORATORY Specimen Anatomical Collection Method Collection Time Receive d Time (Source) Location / / Volume Laterality Blood 04/11/2022 1:20 AM 2 1:31 EDT AM EDT Resulting Agency Comment Spec In Lab Marc Norris MD HEMATOLOGY ORDERABLES Performing Organization Address City/State/[place] [address] (ABNORMAL) Basic Metabolic Panel (non-fasting) (04/11/2022 1:20 AM EDT) athologist Signature Glucose Lvl 98 65 - 199 [facility] mg/dL [facility] LABORATORY Comment: Diabetes: >=200 mg/dL plus symp toms BUN 19 10 - 20 mg/dL [facility] LABORATORY Creatinine 1.62 (H) 0.80 - 1.50 mg/dL [facility] LABORATORY Sodium 138 135 - 145 mmol/L [facility] LABORATORY Potassium 4.1 3.5 - 5.0 mmol/L [facility] LABORATORY Comment: Please note: ??Patients with WBC >100,00 0 may have falsely elevated Potassium levels. ??For accurate Potassium quantif ication in these patients send serum separator tube (gold top) for subsequent determinations. ??Contact the Clinical Chemistry Laboratory if there are any qu estions. Chloride 104 98 - 107 mmol/L [facility] LABORATORY CO2 25 22 - 31 mmol/L [facility] LABORATORY Anion Gap 9 5 - 15 mmol/L [facility] LABORATORY Calcium 9.1 8.5 - 10.5 mg/dL [facility] LABORATORY Estimated GFR 49 (L) >=60 mL/min/1.73 m?? [facility] LABORATORY Comment: This patient's estimated GFR was calcula agustin using the 2020 CKD-EPI equation. The estimated GFR can vary from the satinder ured GFR by up to 30% in the absence of rapidly changing kidney function. Assess ment of the estimated GFR is not appropriate when creatinine concentratio ns are rapidly changing. For clinical situations in which a more precise estim ate of GFR is necessary, consider alternative methods of GFR estimation carlson ch as a 24-hour urine creatinine clearance. Assignment of CKD stage 1-5 for patients with an eGFR near the transition point between stages may be based on clinical assessment of muscle mass and symptoms in addition to eGFR. Specimen Anatomical Collection Method Collection Time Receive d Time (Source) Location / / Volume Laterality Blood 04/11/2022 1:20 AM 2 1:31 EDT AM EDT Resulting Agency Comment Spec In Lab Luther Purdy MD CHEMISTRY ORDERABLES Performing Organization Address City/[facility]/[place] [address] Phosphorus (04/11/2022 1:20 AM EDT) athologist Signature Phosphorus 4.1 2.5 - 4.5 [facility] ST[facility] mg/dL [facility] LABORATORY Specimen Anatomical Collection Method Collection Time Receive d Time (Source) Location / / Volume Laterality Blood 04/11/2022 1:20 AM 2 1:31 EDT AM EDT Resulting Agency Comment Spec In Lab Luther Purdy MD CHEMISTRY ORDERABLES Performing Organization Address City/[facility]/[place] [address] Magnesium (04/11/2022 1:20 AM EDT) athologist Signature Magnesium 0.77 0.69 - 1.07 [facility] mmol/L [facility] LABORATORY Specimen Anatomical Collection Method Collection Time Receive d Time (Source) Location / / Volume Laterality Blood 04/11/2022 1:20 AM 2 1:31 EDT AM EDT Resulting Agency Comment Spec In Lab Luther Purdy MD CHEMISTRY ORDERABLES Performing Organization Address City/[facility]/ZIP [facility] [place] [address] (ABNORMAL) Troponin (04/10/2022 3:54 PM EDT) athologist Signature Troponin-T 0.26 (H) 0.00 - [facility] STEF[facility] 0.00 ng/mL [facility] Comment: The 99th percentile for Troponin T is le ss than 0.01 ng/mL, any detectable cTnT concentration using this assay should be considered elevated. According to the third universal definit ion of myocardial infarction the following criteria with a clinical prese ntation consistent with acute myocardial ischemia meets the diagnosis for a myocardial infarction (ME). Detection of a rise and/or fall of cTnT, with at least one value greater than the 99th percentile (> or = 0.01) and wi th at least one of the following ?? Symptoms of ischemia ?? New or presumed new significant ST-se gment-T wave (ST-T) changes or new left bundle branch block (LBBB) ?? Development of pathologic Q waves in the ECG ?? Imaging evidence of new loss of viabl e myocardium or new regional wall motion abnormality ?? Identification of an intracoronary th rombus by angiography or autopsy Samples for cTnT testing should be obtai johnnie serially upon first assessment and again 3 to 6 hours later. If the clinica l suspicion is high and previous samples have been negative an additional sample may be indicated. Reference: Third [place] Definition of Myocardial Infarction. Journal of the [place] [employer] 2012;60:1581-98 Specimen Anatomical Collection Method Collection Time Receive d Time (Source) Location / / Volume Laterality Blood 04/10/2022 3:54 PM 2 4:01 EDT PM EDT Resulting Agency Comment Spec In Lab Luther Purdy MD CHEMISTRY ORDERABLES Performing Organization Address [facility] [place] [address] Lavender Tube HOLD (04/10/2022 9:39 AM EDT) Patholo gist Method Time Signature Lavender Hold Sample in [facility]. [facility] LABORATORY Specimen Anatomical Collection Method Collection Time Receive d Time (Source) Location / / Volume Laterality Blood Venous Draw / 04/10/2022 9:39 AM 04/10/20 9:52 Unknown EDT AM EDT Marc Norris MD HEMATOLOGY ORDERABLES Performing Organization Address [facility] [place] [address] (ABNORMAL) Iron and TIBC (04/10/2022 9:39 AM EDT) Analysis Performed At Patho logist Time Signature Iron 76 45 - 160 [facility] mcg/dL [facility] LAB[facility] TIBC 177 (L) 250 - 450 [facility] mcg/dL [facility] LAB[facility] Iron Saturation 43 20 - 50 % [facility] LABORATORY Specimen Anatomical Collection Method Collection Time Receive d Time (Source) Location / / Volume Laterality Blood 04/10/2022 9:39 AM 2 9:51 EDT AM EDT Resulting Agency Comment Spec In Lab Luther uPrdy MD CHEMISTRY ORDERABLES Performing Organization Address City/[facility]/[place] [address] PTH (04/10/2022 9:39 AM EDT) P athologist Signature PTH 47 15 - 65 [facility] pg/mL [facility] LAB[facility]ORY Specimen Anatomical Collection Method Collection Time Receive d Time (Source) Location / / Volume Laterality Blood 04/10/2022 9:39 AM 2 9:51 EDT AM EDT Resulting Agency Comment Spec In Lab Luther Purdy MD CHEMISTRY ORDERABLES Performing Organization Address City/[facility]/[place] [address] Uric acid (04/10/2022 9:39 AM EDT) P athologist Signature Uric Acid 6.0 3.5 - 8.5 [facility] mg/dL [facility] Specimen Anatomical Collection Method Collection Time Receive d Time (Source) Location / / Volume Laterality Blood 04/10/2022 9:39 AM 2 9:51 EDT AM EDT Resulting Agency Comment Spec In Lab Luther Purdy MD CHEMISTRY ORDERABLES Performing Organization Address City/[facility]/[place] [address] EKG 12 Lead (04/10/2022 9:35 AM EDT) Component Value Ref Range Test Analysis Performed Pathologis t Method Time At Signature Ventricular rate 62 BPM MUSE SYSTEM Atrial Rate 62 BPM MUSE SYSTEM P-R Interval 176 ms MUSE SYSTEM QRS Duration 110 ms MUSE SYSTEM Q-T Interval 450 ms MUSE SYSTEM QTC Calculated 456 ms MUSE SYSTEM (Bezet) Calculated P [place] 33 degrees MUSE SYSTEM Calculated R [place] -20 degrees MUSE SYSTEM Calculated T [place] 148 degrees MUSE SYSTEM INTERPRETATION Normal sinus rhythm MUSE SYSTEM Left ventricular hypertrophy with repolarization abnormality Abnormal ECG When compared with ECG of 09-APR-2022 10:15, ST now depressed in Anterior leads QT has shortened Confirmed by MD John, [place] ([id number]) on 04/10/2022 12:01:32 PM Specimen Anatomical Collection Method Collection Time Receive d Time (Source) Location / / Volume Laterality 04/10/2022 9:35 AM EDT 12:01 PM EDT Luther Purdy MD ECG ORDERABLES Performing Organization Address City/State/ZIP Code Phon e Number MUSE SYSTEM Differential, Automated (04/10/2022 4:35 AM EDT) P athologist Signature Neutrophils % 70.7 % [facility] LABORATORY Neutr Abs (ANC) 4.66 1.70 - [facility] 6.10 [facility] x10(3)/[facility] LABORATORY Lymphocytes % 15.8 % [facility] LABORATORY Lymphocytes Abs 1.0 0.9 - 3.2 [facility] x10(3)/[facility] LABORATORY Monocytes % 8.5 % [facility] LABORATORY Monocyte Abs 0.6 0.3 - 0.9 [facility] x10(3)/[facility] LABORATORY Eosinophils % 4.1 % [facility] LABORATORY Eosinophils Abs 0.3 0.0 - 0.4 [facility] x10(3)/[facility] LABORATORY Basophils % 0.6 % [facility] LABORATORY Basophils Abs 0.0 0.0 - 0.1 [facility] x10(3)/[facility] LABORATORY Immature Gran % 0.30 % [facility] LABORATORY Comment: Immature granulocytes(IG's)percentage an d absolute count will include metamyelocytes, myelocytes, and promyelo cytes. Blood smears from CBCs yielding IG's will be scanned manually for concor dance. If this scan disagrees with the automated IG or if promyelocytes are not ed, a manual differential will be performed. [place] Gran Abs 0.02 0.00 - 0.04 x10(3)/[facility] MAR Y [facility] LABORATORY Specimen Anatomical Collection Method Collection Time Receive d Time (Source) Location / / Volume Laterality Blood 04/10/2022 4:35 AM 2 4:42 EDT AM EDT Resulting Agency Comment Spec In Lab Marc Norris MD HEMATOLOGY ORDERABLES Performing Organization Address City/State/[place] [address] (ABNORMAL) Hemogram (04/10/2022 4:35 AM EDT) Analysis Performed At Patho logist Time Signature WBC 6.6 4.0 - 9.5 [facility] x10(3)/[facility] LABORATORY RBC 3.65 (L) 4.58 - [facility] 5.54 [facility] x10(6)/[facility] LABORATORY Hemoglobin 11.0 (L) 13.7 - [facility] 16.5 g/dL [facility] LABORATORY Hematocrit 32.9 (L) 40.5 - [facility] 48.5 % [facility] LABORATORY MCV 90.1 82.9 - [facility] 93.1 [facility] LABORATORY MCH 30.1 27.5 - [facility] 32.1 pg [facility] LABORATORY MCHC 33.4 32.0 - [facility] 35.7 g/dL [facility] LABORATORY Platelets 183 145 - 357 [facility] x10(3)/[facility] LABORATORY RDWSD 44.6 36.0 - [facility] 45.0 [facility] LABORATORY RDWCV 13.5 11.4 - [facility] 13.8 % [facility] LABORATORY MPV 10.0 7.6 - 12.9 [facility] LABORATORY nRBC % Auto 0.0 % [facility] LABORATORY nRBC Abs Auto 0.000 0.000 - [facility] 0.000 [facility] x10(3)/[facility] LABORATORY Specimen Anatomical Collection Method Collection Time Receive d Time (Source) Location / / Volume Laterality Blood 04/10/2022 4:35 AM 2 4:42 EDT AM EDT Resulting Agency Comment Spec In Lab Marc Norris MD HEMATOLOGY ORDERABLES Performing Organization Address City/State/[place] [address] Renin Activity (04/10/2022 4:35 AM EDT) athologist Signature Renin Activity 0.8 ng/ml/hr [facility] LABORATORY Comment: REFERENCE VALUE------ (Peripheral vein specimen) Na-deplete, upright: ??Mean: 5.9 ??Range: 2.9-10.8 Na-replete, upright: ??Mean: 1.0 ??Range: < or =0.6-3.0 ADDITIONAL INFORMATIO N Testing performed by Liquid Chromatograp hy-Tandem Mass Spectrometry (LC-MS/MS). This test was developed and its performa nce characteristics determined by [facility] in a manner co nsistent with CLIA requirements. This test has not been cristy ared or approved by the U.S. Food and Drug Administration. Test Performed by: [place] [address] [employer] Manager: Ruben Prasad M.D. Ph. D.; CLIA# [id number] Specimen Anatomical Collection Method Collection Time Receive d Time (Source) Location / / Volume Laterality Blood 04/10/2022 4:35 AM 9:39 EDT AM EDT Resulting Agency Comment Spec In Lab Luther Purdy MD CHEMISTRY ORDERABLES Performing Organization Address City/[facility]/[place] [address] [facility] [address] (ABNORMAL) Basic Metabolic Panel (non-fasting) (04/10/2022 4:35 AM EDT) athologist Signature Glucose Lvl 104 65 - 199 [facility] mg/dL [facility] Comment: Diabetes: >=200 mg/dL plus symp toms BUN 16 10 - 20 mg/dL [facility] LABORATORY Creatinine 1.66 (H) 0.80 - 1.50 mg/dL [facility] LABOR[facility]ORY Sodium 140 135 - 145 mmol/L [facility] Potassium 4.1 3.5 - 5.0 mmol/L [facility] Comment: Please note: ??Patients with WBC >100,00 0 may have falsely elevated Potassium levels. ??For accurate Potassium quantif ication in these patients send serum separator tube (gold top) for subsequent determinations. ??Contact the Clinical Chemistry Laboratory if there are any qu estions. Chloride 105 98 - 107 mmol/L [facility] LABORATORY CO2 24 22 - 31 mmol/L [facility] Anion Gap 11 5 - 15 mmol/L [facility] LABORATORY Calcium 8.6 8.5 - 10.5 mg/dL [facility] Estimated GFR 47 (L) >=60 mL/min/1.73 m?? [facility] Comment: This patient's estimated GFR was calcula agustin using the 2020 CKD-EPI equation. The estimated GFR can vary from the satinder ured GFR by up to 30% in the absence of rapidly changing kidney function. Assess ment of the estimated GFR is not appropriate when creatinine concentratio ns are rapidly changing. For clinical situations in which a more precise estim ate of GFR is necessary, consider alternative methods of GFR estimation carlson ch as a 24-hour urine creatinine clearance. Assignment of CKD stage 1-5 for patients with an eGFR near the transition point between stages may be based on clinical assessment of muscle mass and symptoms in addition to eGFR. Specimen Anatomical Collection Method Collection Time Receive d Time (Source) Location / / Volume Laterality Blood 04/10/2022 4:35 AM 4:42 EDT AM EDT Resulting Agency Comment Spec In Lab Luther Purdy MD CHEMISTRY ORDERABLES Performing Organization Address City/State/[place] [address] Phosphorus (04/10/2022 4:35 AM EDT) athologist Signature Phosphorus 3.4 2.5 - 4.5 PREETI CERVANTESSTEFANIE mg/dL [facility] Specimen Anatomical Collection Method Collection Time Receive d Time (Source) Location / / Volume Laterality Blood 04/10/2022 4:35 AM 2 4:42 EDT AM EDT Resulting Agency Comment Spec In Lab Luther Purdy MD CHEMISTRY ORDERABLES Performing Organization Address City/State/[place] [address] Magnesium (04/10/2022 4:35 AM EDT) athologist [facility] Magnesium 0.74 0.69 - 1.07 [facility] STEFANIE mmol/L [facility] Specimen Anatomical Collection Method Collection Time Receive d Time (Source) Location / / Volume Laterality Blood 04/10/2022 4:35 AM 2 4:42 EDT AM EDT Resulting Agency Comment Spec In Lab Luther Purdy MD CHEMISTRY ORDERABLES Performing Organization Address City/State/[place] [address] (ABNORMAL) Troponin (04/10/2022 4:35 AM EDT) athologist [facility] Troponin-T 0.32 (H) 0.00 - PREETI RONCOCK 0.00 ng/mL [facility] Comment: The 99th percentile for Troponin T is le ss than 0.01 ng/mL, any detectable cTnT concentration using this assay should be considered elevated. According to the third universal definit ion of myocardial infarction the following criteria with a clinical prese ntation consistent with acute myocardial ischemia meets the diagnosis for a myocardial infarction (ME). Detection of a rise and/or fall of cTnT, with at least one value greater than the 99th percentile (> or = 0.01) and wi th at least one of the following ?? Symptoms of ischemia ?? New or presumed new significant ST-se gment-T wave (ST-T) changes or new left bundle branch block (LBBB) ?? Development of pathologic Q waves in the ECG ?? Imaging evidence of new loss of viabl e myocardium or new regional wall motion abnormality ?? Identification of an intracoronary th rombus by angiography or autopsy Samples for cTnT testing should be obtai johnnie serially upon first assessment and again 3 to 6 hours later. If the clinica l suspicion is high and previous samples have been negative an additional sample may be indicated. Reference: Third Zion Definition of Myocardial Infarction. Journal of the [place] [employer] 2012;60:1581-98 Specimen Anatomical Collection Method Collection Time Receive d Time (Source) Location / / Volume Laterality Blood 04/10/2022 4:35 AM 4:42 EDT AM EDT Resulting Agency Comment Spec In Lab Luther Purdy MD CHEMISTRY ORDERABLES Performing Organization Address City/State/[place] [address] (ABNORMAL) Troponin (04/09/2022 11:55 AM EDT) athologist Signature Troponin-T 0.29 (H) 0.00 - [facility] 0.00 ng/mL [facility] Comment: The 99th percentile for Troponin T is le ss than 0.01 ng/mL, any detectable cTnT concentration using this assay should be considered elevated. According to the third universal definit ion of myocardial infarction the following criteria with a clinical prese ntation consistent with acute myocardial ischemia meets the diagnosis for a myocardial infarction (ME). Detection of a rise and/or fall of cTnT, with at least one value greater than the 99th percentile (> or = 0.01) and wi th at least one of the following ?? Symptoms of ischemia ?? New or presumed new significant ST-se gment-T wave (ST-T) changes or new left bundle branch block (LBBB) ?? Development of pathologic Q waves in the ECG ?? Imaging evidence of new loss of viabl e myocardium or new regional wall motion abnormality ?? Identification of an intracoronary th rombus by angiography or autopsy Samples for cTnT testing should be obtai johnnie serially upon first assessment and again 3 to 6 hours later. If the clinica l suspicion is high and previous samples have been negative an additional sample may be indicated. Reference: Third [place] Definition of Myocardial Infarction. Journal of the [place] [employer] 2012;60:1581-98 Specimen Anatomical Collection Method Collection Time Receive d Time (Source) Location / / Volume Laterality Blood 04/09/2022 11:55 04/09/2022 AM EDT 11:59 AM EDT Resulting Agency Comment Spec In Lab Luther Purdy MD CHEMISTRY ORDERABLES Performing Organization Address City/[facility]/[place] [address] EKG 12 Lead (04/09/2022 10:15 AM EDT) Component Value Ref Range Test Analysis Performed Pathologis t Method Time At Signature Ventricular rate 70 BPM MUSE SYSTEM Atrial Rate 70 BPM MUSE SYSTEM P-R Interval 172 ms MUSE SYSTEM QRS Duration 106 ms MUSE SYSTEM Q-T Interval 482 ms MUSE SYSTEM QTC Calculated 520 ms MUSE SYSTEM (Bezet) Calculated P [place] 40 degrees MUSE SYSTEM Calculated R [place] -5 degrees MUSE SYSTEM Calculated T [place] 130 degrees MUSE SYSTEM INTERPRETATION Normal sinus rhythm MUSE SYSTEM ST & T wave abnormality, consider lateral ischemia Prolonged QT Abnormal ECG When compared with ECG of 05-APR-2022 16:08, ST no longer depressed in Anterior leads T wave inversion more evident in Anterolateral leads Confirmed by MD John, Cheyenne ([id number]) on 04/09/2022 3:49:47 PM Specimen Anatomical Collection Method Collection Time Receive d Time (Source) Location / / Volume Laterality 04/09/2022 10:15 04/09/2022 3:49 AM EDT PM EDT Luther Purdy MD ECG ORDERABLES Performing Organization Address City/[facility]/ZIP Code Phon e Number MUSE SYSTEM Urinalysis Microscopic Exam (04/09/2022 10:00 AM EDT) P athologist Signature RBC UA 2 0 - 3 /HPF [facility] WBC UA 1 0 - 3 /HPF [facility] Hyaline Cast 1 0 - 2 /LPF [facility] Specimen (Source) Anatomical Collection Method Collection Time Re ceived Time Location / / Volume Laterality Indwelling 04/09/2022 10:00 04/09/2022 Catheter Urine AM EDT 10:23 AM EDT Resulting Agency Comment Spec In Lab Marc Norris MD URINE ORDERABLES Performing Organization Address City/[facility]/ZIP Code Phon [place] [address] (ABNORMAL) Urinalysis with reflex Culture (04/09/2022 10:00 AM EDT) Patholo gist Method Time Signature Glucose UA Negative Negative [facility] mg/dL [facility] Protein UA Trace (A) Negative [facility] mg/dL [facility] Bilirubin UA Negative Negative [facility] mg/dL [facility] Comment: Clinical correlation required for positi ve Urine Bilirubin results as false positive may occur with some drugs and d rug related products. If a false positive is suspected a serum total bili rubio should be considered if clinically indicated. Urobilinogen UA Normal Normal mg/dL [facility] pH UA 6.5 5.0 - 8.0 [facility] Blood UA Negative Negative mg/dL [facility] Ketones UA Negative Negative mg/dL [facility] Nitrite UA Negative Negative [facility] Leukocytes UA Negative Negative [facility] Appearance UA Clear Clear [facility] Spec [place] UA 1.011 1.005 - 1.030 [facility] Color UA Yellow Yellow [facility] Culture Reflexed No [facility] Specimen (Source) Anatomical Collection Method Collection Time Re ceived Time Location / / Volume Laterality Indwelling 04/09/2022 10:00 04/09/2022 Catheter Urine AM EDT 10:23 AM EDT Resulting Agency Comment Spec In Lab Luther Purdy MD URINE ORDERABLES Performing Organization Address City/State/[place] [address] Differential, Automated (04/09/2022 12:50 AM EDT) athologist Signature Neutrophils % 70.6 % [facility] Neutr Abs (ANC) 5.24 1.70 - [facility] 6.10 [facility] x10(3)/[facility] LABORATORY Lymphocytes % 17.5 % [facility] Lymphocytes Abs 1.3 0.9 - 3.2 [facility] x10(3)/[facility] LABORATORY Monocytes % 7.4 % [facility] Monocyte Abs 0.6 0.3 - 0.9 [facility] x10(3)/[facility] LABORATORY Eosinophils % 3.5 % [facility] Eosinophils Abs 0.3 0.0 - 0.4 [facility] x10(3)/[facility] LABORATORY Basophils % 0.5 % [facility] Basophils Abs 0.0 0.0 - 0.1 [facility] x10(3)/[facility] LABORATORY Immature Gran % 0.50 % [facility] Comment: Immature granulocytes(IG's)percentage an d absolute count will include metamyelocytes, myelocytes, and promyelo cytes. Blood smears from CBCs yielding IG's will be scanned manually for concor dance. If this scan disagrees with the automated IG or if promyelocytes are not ed, a manual differential will be performed. [place] Gran Abs 0.04 0.00 - 0.04 x10(3)/[facility] Y [facility] LABORATORY Specimen Anatomical Collection Method Collection Time Receive d Time (Source) Location / / Volume Laterality Blood 04/09/2022 12:50 04/09/2022 1:04 AM EDT AM EDT Resulting Agency Comment Spec In Lab Maurisio Amaya DO HEMATOLOGY ORDERABLES Performing Organization Address City/State/[place] [address] (ABNORMAL) Hemogram (04/09/2022 12:50 AM EDT) Analysis Performed At Patho logist Time Signature WBC 7.4 4.0 - 9.5 [facility] x10(3)/[facility] LABORATORY RBC 3.48 (L) 4.58 - [facility] 5.54 [facility] x10(6)/[facility] LABORATORY Hemoglobin 10.7 (L) 13.7 - [facility] 16.5 g/dL [facility] Hematocrit 31.0 (L) 40.5 - [facility] % [facility] MCV 89.1 82.9 - [facility] 93.1 [facility] LABORATORY MCH 30.7 27.5 - [facility] 32.1 pg [facility] MCHC 34.5 32.0 - [facility] 35.7 g/dL [facility] Platelets 177 145 - 357 [facility] x10(3)/[facility] LABORATORY RDWSD 44.5 36.0 - [facility] 45.0 [facility] LABORATORY RDWCV 13.5 11.4 - [facility] 13.8 % [facility] LAB[facility]ATORY MPV 10.2 7.6 - 12.9 [facility] LABORATORY nRBC % Auto 0.0 % [facility]OR[facility]ORY nRBC Abs Auto 0.000 0.000 - [facility] 0.000 [facility] x10(3)/[facility] LABORATORY Specimen Anatomical Collection Method Collection Time Receive d Time (Source) Location / / Volume Laterality Blood 04/09/2022 12:50 04/09/2022 1:04 AM EDT AM EDT Resulting Agency Comment Spec In Lab Maurisio Amaya DO HEMATOLOGY ORDERABLES Performing Organization Address City/State/[place] [address] (ABNORMAL) Basic Metabolic Panel (non-fasting) (04/09/2022 12:50 AM EDT) P athologist Signature Glucose Lvl 109 65 - 199 [facility] mg/dL [facility] Comment: Diabetes: >=200 mg/dL plus symp toms BUN 14 10 - 20 mg/dL [facility] Creatinine 1.62 (H) 0.80 - 1.50 mg/dL [facility] Sodium 142 135 - 145 mmol/L [facility] Potassium 3.9 3.5 - 5.0 mmol/L [facility] Comment: Please note: ??Patients with WBC >100,00 0 may have falsely elevated Potassium levels. ??For accurate Potassium quantif ication in these patients send serum separator tube (gold top) for subsequent determinations. ??Contact the Clinical Chemistry Laboratory if there are any qu estions. Chloride 110 (H) 98 - 107 mmol/L [facility] CO2 23 22 - 31 mmol/L [facility] Anion Gap 9 5 - 15 mmol/L [facility]ORY Calcium 8.6 8.5 - 10.5 mg/dL [facility] Estimated GFR 49 (L) >=60 mL/min/1.73 m?? [facility] Comment: This patient's estimated GFR was calcula agustin using the 2020 CKD-EPI equation. The estimated GFR can vary from the satinder ured GFR by up to 30% in the absence of rapidly changing kidney function. Assess ment of the estimated GFR is not appropriate when creatinine concentratio ns are rapidly changing. For clinical situations in which a more precise estim ate of GFR is necessary, consider alternative methods of GFR estimation carlson ch as a 24-hour urine creatinine clearance. Assignment of CKD stage 1-5 for patients with an eGFR near the transition point between stages may be based on clinical assessment of muscle mass and symptoms in addition to eGFR. Specimen Anatomical Collection Method Collection Time Receive d Time (Source) Location / / Volume Laterality Blood 04/09/2022 12:50 04/09/2022 1:04 AM EDT AM EDT Resulting Agency Comment Spec In Lab Luther Purdy MD CHEMISTRY ORDERABLES Performing Organization Address City/[facility]/ZIP Code Phon e Number [address] Phosphorus (04/09/2022 12:50 AM EDT) athologist Signature Phosphorus 3.4 2.5 - 4.5 [facility] Specimen Anatomical Collection Method Collection Time Receive d Time (Source) Location / / Volume Laterality Blood 04/09/2022 12:50 04/09/2022 1:04 AM EDT AM EDT Resulting Agency Comment Spec In Lab Luther Purdy MD CHEMISTRY ORDERABLES Performing Organization Address City/[facility] Phon e Number [address] Magnesium (04/09/2022 12:50 AM EDT) athologist Signature Magnesium 0.73 0.69 - 1.07 PREETI WAT[place] mmol/L [facility] Specimen Anatomical Collection Method Collection Time Receive d Time (Source) Location / / Volume Laterality Blood 04/09/2022 12:50 04/09/2022 1:04 AM EDT AM EDT Resulting Agency Comment Spec In Lab Luther Purdy MD CHEMISTRY ORDERABLES Performing Organization Address City/State/ZIP Code Phon e Number [place] [address] (ABNORMAL) Troponin (04/09/2022 12:50 AM EDT) athologist Signature Troponin-T 0.29 (H) 0.00 - [facility] [place] 0.00 ng/mL [facility] Comment: The 99th percentile for Troponin T is le ss than 0.01 ng/mL, any detectable cTnT concentration using this assay should be considered elevated. According to the third universal definit ion of myocardial infarction the following criteria with a clinical prese ntation consistent with acute myocardial ischemia meets the diagnosis for a myocardial infarction (ME). Detection of a rise and/or fall of cTnT, with at least one value greater than the 99th percentile (> or = 0.01) and wi th at least one of the following ?? Symptoms of ischemia ?? New or presumed new significant ST-se gment-T wave (ST-T) changes or new left bundle branch block (LBBB) ?? Development of pathologic Q waves in the ECG ?? Imaging evidence of new loss of viabl e myocardium or new regional wall motion abnormality ?? Identification of an intracoronary th rombus by angiography or autopsy Samples for cTnT testing should be obtai johnnie serially upon first assessment and again 3 to 6 hours later. If the clinica l suspicion is high and previous samples have been negative an additional sample may be indicated. Reference: Third [place] Definition of Myocardial Infarction. Journal of the [place] [employer] 2012;60:1581-98 Specimen Anatomical Collection Method Collection Time Receive d Time (Source) Location / / Volume Laterality Blood 04/09/2022 12:50 04/09/2022 1:04 AM EDT AM EDT Resulting Agency Comment Spec In Lab Luther Purdy MD CHEMISTRY ORDERABLES Performing Organization Address City/State/[place] [address] (ABNORMAL) Differential, Automated (04/08/2022 1:20 AM EDT) [facility] Method Time Signature Neutrophils % 73.4 % [facility]ORY Neutr Abs (ANC) 6.35 (H) 1.70 - [facility] 6.10 [facility] x10(3)/[facility] LABORATORY Lymphocytes % 14.7 % [facility]ORY Lymphocytes Abs 1.3 0.9 - 3.2 [facility] x10(3)/[facility] LABORATORY Monocytes % 7.6 % [facility]ATORY Monocyte Abs 0.7 0.3 - 0.9 [facility] x10(3)/[facility] LABORATORY Eosinophils % 3.3 % [facility]ORY Eosinophils Abs 0.3 0.0 - 0.4 [facility] x10(3)/[facility] LABORATORY Basophils % 0.7 % [facility] Basophils Abs 0.1 0.0 - 0.1 [facility] x10(3)/[facility] LABORATORY Immature Gran % 0.30 % [facility] Comment: Immature granulocytes(IG's)percentage an d absolute count will include metamyelocytes, myelocytes, and promyelo cytes. Blood smears from CBCs yielding IG's will be scanned manually for concor dance. If this scan disagrees with the automated IG or if promyelocytes are not ed, a manual differential will be performed. [place] Gran Abs 0.03 0.00 - 0.04 x10(3)/[facility] MAR Y [facility] LABORATORY Specimen Anatomical Collection Method Collection Time Receive d Time (Source) Location / / Volume Laterality Blood 04/08/2022 1:20 AM 1:32 EDT AM EDT Resulting Agency Comment Spec In Lab Maurisio Amaya DO HEMATOLOGY ORDERABLES Performing Organization Address City/State/[place] [address] (ABNORMAL) Hemogram (04/08/2022 1:20 AM EDT) Analysis Performed At Patho logist Time Signature WBC 8.7 4.0 - 9.5 [facility] x10(3)/[facility] LABORATORY RBC 3.64 (L) 4.58 - [facility] 5.54 [facility] x10(6)/[facility] LABORATORY Hemoglobin 10.8 (L) 13.7 - [facility] 16.5 g/dL [facility] Hematocrit 31.6 (L) 40.5 - [facility] 48.5 % [facility] MCV 86.8 82.9 - [facility] 93.1 [facility] LABORATORY MCH 29.7 27.5 - [facility] 32.1 pg [facility] MCHC 34.2 32.0 - [facility] 35.7 g/dL [facility] Platelets 178 145 - 357 [facility] x10(3)/[facility] LABORATORY RDWSD 42.2 36.0 - [facility].0 [facility] LABORATORY RDWCV 13.5 11.4 - [facility] 13.8 % [facility] LAB[facility]ATORY MPV 10.2 7.6 - 12.9 [facility] LABORATORY nRBC % Auto 0.0 % [facility] LABORATORY nRBC Abs Auto 0.000 0.000 - [facility] 0.000 [facility] x10(3)/[facility] LABORATORY Specimen Anatomical Collection Method Collection Time Receive d Time (Source) Location / / Volume Laterality Blood 04/08/2022 1:20 AM 1:32 EDT AM EDT Resulting Agency Comment Spec In Lab Maurisio Amaya DO HEMATOLOGY ORDERABLES Performing Organization Address City/State/[place] [address] (ABNORMAL) Basic Metabolic Panel (non-fasting) (04/08/2022 1:20 AM EDT) P athologist Signature Glucose Lvl 135 65 - 199 [facility] mg/dL [facility] Comment: Diabetes: >=200 mg/dL plus symp toms BUN 13 10 - 20 mg/dL [facility]ORY Creatinine 1.52 (H) 0.80 - 1.50 mg/dL [facility] Sodium 141 135 - 145 mmol/L [facility] Potassium 3.2 (L) 3.5 - 5.0 mmol/L [facility] Comment: Please note: ??Patients with WBC >100,00 0 may have falsely elevated Potassium levels. ??For accurate Potassium quantif ication in these patients send serum separator tube (gold top) for subsequent determinations. ??Contact the Clinical Chemistry Laboratory if there are any qu estions. Chloride 110 (H) 98 - 107 mmol/L [facility] CO2 21 (L) 22 - 31 mmol/L [facility] Anion Gap 10 5 - 15 mmol/L [facility]ORY Calcium 8.8 8.5 - 10.5 mg/dL [facility] Estimated GFR 53 (L) >=60 mL/min/1.73 m?? [facility] Comment: This patient's estimated GFR was calcula agustin using the 2020 CKD-EPI equation. The estimated GFR can vary from the satinder ured GFR by up to 30% in the absence of rapidly changing kidney function. Assess ment of the estimated GFR is not appropriate when creatinine concentratio ns are rapidly changing. For clinical situations in which a more precise estim ate of GFR is necessary, consider alternative methods of GFR estimation carlson ch as a 24-hour urine creatinine clearance. Assignment of CKD stage 1-5 for patients with an eGFR near the transition point between stages may be based on clinical assessment of muscle mass and symptoms in addition to eGFR. Specimen Anatomical Collection Method Collection Time Receive d Time (Source) Location / / Volume Laterality Blood 04/08/2022 1:20 AM 2 1:32 EDT AM EDT Resulting Agency Comment Spec In Lab Luther Purdy MD CHEMISTRY ORDERABLES Performing Organization Address City/State/[place] [address] Phosphorus (04/08/2022 1:20 AM EDT) athologist Signature Phosphorus 3.0 2.5 - 4.5 [facility]/dL [facility]ORY Specimen Anatomical Collection Method Collection Time Receive d Time (Source) Location / / Volume Laterality Blood 04/08/2022 1:20 AM 2 1:32 EDT AM EDT Resulting Agency Comment Spec In Lab Luther Purdy MD CHEMISTRY ORDERABLES Performing Organization Address City/[facility]/ZIP Code Phon e Number [address] Magnesium (04/08/2022 1:20 AM EDT) P athologist Signature Magnesium 0.72 0.69 - 1.07 [place] [place] mmol/L [facility] Specimen Anatomical Collection Method Collection Time Receive d Time (Source) Location / / Volume Laterality Blood 04/08/2022 1:20 AM 2 1:32 EDT AM EDT Resulting Agency Comment Spec In Lab Luther Purdy MD CHEMISTRY ORDERABLES Performing Organization Address City/[facility]/ZIP Code Phon e Number [id number] [address] ECHOCARDIOGRAM COMPLETE (04/07/2022 2:38 PM EDT) P athologist Signature EF 60 HEARTLAB SYSTEM Anatomical Region Laterality Modality Cardiac Other Specimen (Source) Anatomical Collection Method Collection Time Re ceived Time Location / / Volume Laterality 04/07/2022 1:29 PM EDT Narrative 04/07/2022 3:13 PM EDT ? Echocardiogram Report Name: DENILSON GO ?Study Date: 04/07/2022 01:29 PMBP: 129/90 mmHg ? Patient Location: [place] [address] A HR: 92 : 1965 ? Height: 180 cm ? Account: [id number] Age: 56 yrs ? Weight: 114 kg Gender: Male ?BSA: 2.3 m2 Ordering Physician: ALFRED Referring Physician: DENILSON BARTON Performed By: Nael Caldwell RDCS Reason For Study: Intracerebral hemorrha ge History: HTN Exam Location: [facility]. Interpretation Summary The left ventricular size is normal. Wal l thickness is severely increased. LV function is normal with LVEF of 60% by S impson's biplane and no wall motion abnormalities. Right ventricular size and function are normal. PASP 26 mm Hg (assuming RA pressure 3 mm Hg). The left atrium is moderately dilated. T he right atrium is mildly dilated. There is no hemodynamically significant valvular disease present. No prior echo for comparison. Severely i ncreased wall thickness - this could be due to long-standing hypertension, but c annot rule out other conditions, such as amyloid. Consider cardiac MRI if clinica lly appropriate. Procedure Complete-17097. Satisfactory quality. Th ere is normal sinus rhythm. Left Ventricle Left ventricle is of normal size. There is no ventricular septal defect. Wall thickness is severely increased. Left ve ntricular systolic function is normal. The left ventricular ejection fraction is 60 % by Peters's biplane. There are no segmental wall motion abnormalities. Right Ventricle The right ventricle is of normal size. R ight ventricular systolic function is normal. Left Atrium The left atrium is moderately dilated. T here is no evidence for a patent foramen ovale visualized with agitated saline. Right Atrium The right atrium is mildly dilated. Aortic Valve The aortic valve is structurally normal. There is no aortic stenosis. There is no aortic regurgitation. Mitral Valve The mitral valve is structurally and fun ctionally normal. There is trace mitral regurgitation. Tricuspid Valve The tricuspid valve is structurally norm al. There is trace tricuspid regurgitation. Pulmonic Valve The pulmonic valve appears to be structu rally and functionally normal. There is trace pulmonic valve regurgitation. Great Arteries The aortic root is of normal size. No ab normalities are identified. Ascending aorta is normal in size. Venous Inferior vena cava is normal in size. In ferior vena cava collapse greater than 50% with respiration. Pericardium/Pleural The pericardium appears normal. Hemodynamics The estimated right atrial pressure is 3 mmHg. The peak right ventricular systolic pressure is 26 mmHg. Left ventricular fi lling pressure is indeterminate. Ejection Fraction ?2D Measurem ents ? Volumes LV Biplane EF: 60.3 % ? IVSd: 1.9 cm ? LA Volume Index: ?L VIDd: 5.0 cm ?L VIDs: 3.0 cm ?44.4 ml/m2 ?L VPWd: 2.1 cm ?RA A4Cs_phl: 20.7 cm2 ? EDV Biplane: 124.0 ml ?L V mass(C)d: 490.6 grams ? EDV Biplane Index: 53.4 ?L V mass(C)dI: 211.4 grams/m2 ?? ESV Biplane: 49.2 ml ?A o root diam: 3.8 cm ? ESV Biplane Index: 21.2 ?A o root diam index: 1.6 ?SV(LVOT): 127.6 ml ?a sc Aorta Diam: 3.9 cm ?L VOT diam: 2.4 cm ?LV Stroke Volume: ? 126.0 ml ? SI(LVOT): 55.0 ml/m2 Doppler TR max jamracus: 241.1 cm/sec RVSP(TR): 26.2 mmHg MV E max jamarcus: 66.1 cm/sec MV A max jamarcus: 97.9 cm/sec MV E/A: 0.67 MV dec time: 0.25 sec Lat Peak E' Jamarcus: 6.9 cm/sec E/ e' (lat): 9.6 Med Peak E' Jamarcus: 4.1 cm/sec E/e' (med): 16.0 E/e' Average: 12.8 I ?WMSI = 1.00 ? % Normal = 1 00 ?Segments ??Size X - Cannot ?2 - ?4 - ?1-2 ? small Interpret ?1 - Normal ?? Hypokinetic 3 - Akinetic Dyskinetic ?? 3-5 ? moderate 5 - ? 6-14 ?large Aneurysmal ?15-16 ?? diffuse Procedure Note Dionte Magaña MD - 04/07/2022Format ting of this note might be different from the original. Echocardiogram Report Name: DENILSON GO Study Date: 03/2022 01:29 PMBP: 129/90 mmHg Patient Location: [address] HR: 92 : 1965 Height: 180 cm Account: [id number] Age: 56 yrs Weight: 114 kg Gender: Male BSA: 2.3 m2 Ordering Physician: ALFRED Referring Physician: DENILSON BARTON Performed By: Nael Caldwell RDCS Reason For Study: Intracerebral hemorrha ge History: HTN Exam Location: [facility]. Interpretation Summary The left ventricular size is normal. Wal l thickness is severely increased. LV function is normal with LVEF of 60% by S impson's biplane and no wall motion abnormalities. Right ventricular size and function are normal. PASP 26 mm Hg (assuming RA pressure 3 mm Hg). The left atrium is moderately dilated. T he right atrium is mildly dilated. There is no hemodynamically significant valvular disease present. No prior echo for comparison. Severely i ncreased wall thickness - this could be due to long-standing hypertension, but c annot rule out other conditions, such as amyloid. Consider cardiac MRI if clinica lly appropriate. Procedure Complete-[id number]. Satisfactory quality. Th ere is normal sinus rhythm. Left Ventricle Left ventricle is of normal size. There is no ventricular septal defect. Wall thickness is severely increased. Left ve ntricular systolic function is normal. The left ventricular ejection fraction is 60 % by Peters's biplane. There are no segmental wall motion abnormalities. Right Ventricle The right ventricle is of normal size. R ight ventricular systolic function is normal. Left Atrium The left atrium is moderately dilated. T here is no evidence for a patent foramen ovale visualized with agitated saline. Right Atrium The right atrium is mildly dilated. Aortic Valve The aortic valve is structurally normal. There is no aortic stenosis. There is no aortic regurgitation. Mitral Valve The mitral valve is structurally and fun ctionally normal. There is trace mitral regurgitation. Tricuspid Valve The tricuspid valve is structurally norm al. There is trace tricuspid regurgitation. Pulmonic Valve The pulmonic valve appears to be structu rally and functionally normal. There is trace pulmonic valve regurgitation. Great Arteries The aortic root is of normal size. No ab normalities are identified. Ascending aorta is normal in size. Venous Inferior vena cava is normal in size. In ferior vena cava collapse greater than 50% with respiration. Pericardium/Pleural The pericardium appears normal. Hemodynamics The estimated right atrial pressure is 3 mmHg. The peak right ventricular systolic pressure is 26 mmHg. Left ventricular fi lling pressure is indeterminate. Ejection Fraction 2D Measurements Volume s LV Biplane EF: 60.3 % IVSd: 1.9 cm LA Vo lume Index: LVIDd: 5.0 cm LVIDs: 3.0 cm 44.4 ml/m2 LVPWd: 2.1 cm RA A4Cs_phl: 20.7 cm2 EDV Biplane: 124.0 ml LV mass(C)d: 490.6 grams EDV Biplane In dex: 53.4 LV mass(C)dI: 211.4 grams/m2 ESV Biplan e: 49.2 ml Ao root diam: 3.8 cm ESV Biplane Index: 21.2 Ao root diam index: 1.6 SV(LVOT): 127.6 ml asc Aorta Diam: 3.9 cm LVOT diam: 2.4 cm LV Stroke Volume: 126.0 ml SI(LVOT): 55.0 ml/m2 Doppler TR max jamarcus: 241.1 cm/sec RVSP(TR): 26.2 mmHg MV E max jamarcus: 66.1 cm/sec MV A max jamarcus: 97.9 cm/sec MV E/A: 0.67 MV dec time: 0.25 sec Lat Peak E' Jamarcus: 6.9 cm/sec E/ e' (lat): 9.6 Med Peak E' Jamarcus: 4.1 cm/sec E/e' (med): 16.0 E/e' Average: 12.8 I WMSI = 1.00 % Normal = 100 Segments Size X - Cannot 2 - 4 - 1-2 small Interpret 1 - Normal Hypokinetic 3 - Mary netic Dyskinetic 3-5 moderate 5 - 6-14 large Aneurysmal 15-16 diffuse Jak Bolivar MD ECHO ORDERABLES Duplex Study Renal Arteries, Bilat (04/07/2022 1:16 PM EDT) Component Value Ref Test Analysis Performed At [facility] Range Method Time Signature VB Text Department: Vascular Surgery Lab VASCUBASE Report Patient: [id number] (DENILSON GO) CPT: 33161 Referring Physician: JAK BOLIVAR ?? Phone: Indications: stroke 2/2 HTN urgency Findings: Stefanie Renal Aorta ? PSV (cm/s): 173 ? EDV (cm/s): 22 ? RI: 0.87 Upper Pole Renal Parenchyma, Right ? PSV (cm/s): 51 ? EDV (cm/s): 6 ? RI: 0.87 Lower Pole Renal Parenchyma, Right ? PSV (cm/s): 19 ? EDV (cm/s): 0 ? RI: 1.00 Renal Hilum, Right ? AT (ms): 30 Kidney Length, Right ? Length (cm): 11.3 Renal Vein, Right ? Patent: Patent Upper Pole Renal Parenchyma, Left ? PSV (cm/s): 41 ? EDV (cm/s): 0 ? RI: 1.00 Lower Pole Renal Parenchyma, Left ? PSV (cm/s): 27 ? EDV (cm/s): 0 ? RI: 1.00 Renal Hilum, Left ? AT (ms): 20 Kidney Length, Left ? Length (cm): 11.6 Renal Vein, Left ? Patent: Patent Interpretation: Right: Doppler waveforms are consistent with abnormall y elevated parenchymal resistance. Main renal artery not visualized due to abdomina l gas, cannot exclude a stenosis. Left: Doppler waveforms are consistent with abnormally sheron vated parenchymal resistance. Main renal artery not visualized due to abdomina l gas, cannot exclude a stenosis. Comparison: ??No previous study in our vascular lab da tabase for comparison. Electronically Signed by: ADAMARIS CHAKRABORTY on 2022-04-07 09:31:22 AM VB Text End of Report [facility]ASCU[facility] Report Specimen (Source) Anatomical Collection Method Collection Time Re ceived Time Location / / Volume Laterality 04/07/2022 1:16 PM EDT Jak Bolivar MD VASCULAR ORDERABLES Performing Organization Address City/State/ZIP Code Phon e Number VASCUBASE Hemoglobin A1c (04/07/2022 4:30 AM EDT) P athologist Signature Hemoglobin A1C 4.8 4.3 - 5.6 [facility] Comment: Reference Range: 4.3 - 5.6% 5.7 - 6.4% - Increased Risk of Developin g Diabetes Mellitus >= 6.5% - Consistent with diagnosis of D iabetes Mellitus In the absence of hyperglycemia (i.e. pl asma glucose > 200 mg/dL) or classic symptoms of hyperglycemia a repeat measu rement of HbA1c should be performed on a separate sample to confirm the diagnos is. Diagnosis and Classification of Diabetes Mellitus, Diabetes Care 2013; 36: Suppl. 1, S67-91 Est Avg Gluc 90 mg/dL [facility] Comment: eAG equivalents for HbA1c percentages: HbA1c(%) ?eAG(mg/dL) 6.0 ?126 6.5 ?140 7.0 ?154 7.5 ?169 8.0 ?183 8.5 ?197 9.0 ?212 9.5 ?226 10.0 ? 240 Limitations: The eAG calculation has not been validated on women, individuals below 18 years old and above 70 years old, and individuals with hemoglobinopathies. Additional resources are available on e ADA website. Armando COSTA, Roddy J, Stanley R, et al. ??Tr anslating the A1C assay into estimated average glucose values. ??Diabetes Care 2008:31(8):1350-1307. Specimen Anatomical Collection Method Collection Time Receive d Time (Source) Location / / Volume Laterality Blood Venous Draw / 04/07/2022 4:30 AM 08/09/20 22 8:50 Unknown EDT AM EDT Resulting Agency Comment Spec In Lab Marc Norris MD CHEMISTRY ORDERABLES Performing Organization Address City/State/[place] [address] (ABNORMAL) Differential, Automated (04/07/2022 4:30 AM EDT) [facility] Method Time Signature Neutrophils % 73.4 % [facility] Neutr Abs (ANC) 7.19 (H) 1.70 - [facility] 6.10 [facility] x10(3)/[facility] LABORATORY Lymphocytes % 15.2 % [facility] Lymphocytes Abs 1.5 0.9 - 3.2 [facility] x10(3)/[facility] LABORATORY Monocytes % 7.6 % [facility] Monocyte Abs 0.7 0.3 - 0.9 [facility] x10(3)/[facility] LABORATORY Eosinophils % 2.8 % [facility] Eosinophils Abs 0.3 0.0 - 0.4 [facility] x10(3)/[facility] LABORATORY Basophils % 0.6 % [facility] Basophils Abs 0.1 0.0 - 0.1 [facility] x10(3)/[facility] LABORATORY Immature Gran % 0.40 % [facility] Comment: Immature granulocytes(IG's)percentage an d absolute count will include metamyelocytes, myelocytes, and promyelo cytes. Blood smears from CBCs yielding IG's will be scanned manually for concor dance. If this scan disagrees with the automated IG or if promyelocytes are not ed, a manual differential will be performed. [place] Gran Abs 0.04 0.00 - 0.04 x10(3)/[facility] MAR Y [facility] LABORATORY Specimen Anatomical Collection Method Collection Time Receive d Time (Source) Location / / Volume Laterality Blood 04/07/2022 4:30 AM 4:33 EDT AM EDT Resulting Agency Comment Spec In Lab Maurisio Amaya DO HEMATOLOGY ORDERABLES Performing Organization Address City/State/[place] [address] (ABNORMAL) Hemogram (04/07/2022 4:30 AM EDT) Analysis Performed At Patho logist Time Signature WBC 9.8 (H) 4.0 - 9.5 [facility] x10(3)/[facility] LABORATORY RBC 4.01 (L) 4.58 - [facility] [place] 5.54 [facility] x10(6)/[facility] LABORATORY Hemoglobin 12.1 (L) 13.7 - [facility] 16.5 g/dL [facility] Hematocrit 34.8 (L) 40.5 - [facility] [place] 48.5 % [facility] LAB[facility]ORY MCV 86.8 82.9 - [facility] STEFANIE 93.1 [facility] LABORATORY MCH 30.2 27.5 - [facility] [place] 32.1 pg [facility] MCHC 34.8 32.0 - [facility] [place] 35.7 g/dL [facility] Platelets 206 145 - 357 [facility] x10(3)/[facility] LABORATORY RDWSD 41.6 36.0 - [facility] [place] 45.0 [facility] LABORATORY RDWCV 13.3 11.4 - [facility] STEFANIE 13.8 % [facility] LABORATORY MPV 10.0 7.6 - 12.9 [facility] LABORATORY nRBC % Auto 0.0 % [facility] LAB[facility]ORY nRBC Abs Auto 0.000 0.000 - [facility] STEFANIE 0.000 [facility] x10(3)/[facility] LABORATORY Specimen Anatomical Collection Method Collection Time Receive d Time (Source) Location / / Volume Laterality Blood 04/07/2022 4:30 AM 4:33 EDT AM EDT Resulting Agency Comment Spec In Lab Maurisio Amaya DO HEMATOLOGY ORDERABLES Performing Organization Address City/State/[place] [address] (ABNORMAL) Basic Metabolic Panel (non-fasting) (04/07/2022 4:30 AM EDT) P athologist Signature Glucose Lvl 120 65 - 199 [facility] Comment: Diabetes: >=200 mg/dL plus symp toms BUN 17 10 - 20 mg/dL [facility] Creatinine 1.68 (H) 0.80 - 1.50 mg/dL [facility] Sodium 141 135 - 145 mmol/L [facility] Potassium 3.1 (L) 3.5 - 5.0 mmol/L [facility] Comment: Please note: ??Patients with WBC >100,00 0 may have falsely elevated Potassium levels. ??For accurate Potassium quantif ication in these patients send serum separator tube (gold top) for subsequent determinations. ??Contact the Clinical Chemistry Laboratory if there are any qu estions. Chloride 109 (H) 98 - 107 mmol/L [facility] CO2 21 (L) 22 - 31 mmol/L [facility] Anion Gap 11 5 - 15 mmol/L [facility] Calcium 8.7 8.5 - 10.5 mg/dL [facility] Estimated GFR 47 (L) >=60 mL/min/1.73 m?? [facility] Comment: This patient's estimated GFR was calcula agustin using the 2020 CKD-EPI equation. The estimated GFR can vary from the satinder ured GFR by up to 30% in the absence of rapidly changing kidney function. Assess ment of the estimated GFR is not appropriate when creatinine concentratio ns are rapidly changing. For clinical situations in which a more precise estim ate of GFR is necessary, consider alternative methods of GFR estimation carlson ch as a 24-hour urine creatinine clearance. Assignment of CKD stage 1-5 for patients with an eGFR near the transition point between stages may be based on clinical assessment of muscle mass and symptoms in addition to eGFR. Specimen Anatomical Collection Method Collection Time Receive d Time (Source) Location / / Volume Laterality Blood 04/07/2022 4:30 AM 2 4:33 EDT AM EDT Resulting Agency Comment Spec In Lab Luther Purdy MD CHEMISTRY ORDERABLES Performing Organization Address City/State/[place] [address] Phosphorus (04/07/2022 4:30 AM EDT) athologist Signature Phosphorus 3.2 2.5 - 4.5 [facility] mg/dL [facility] Specimen Anatomical Collection Method Collection Time Receive d Time (Source) Location / / Volume Laterality Blood 04/07/2022 4:30 AM 2 4:33 EDT AM EDT Resulting Agency Comment Spec In Lab Luther Purdy MD CHEMISTRY ORDERABLES Performing Organization Address City/[facility]/ZIP Code Phon e Number [address] Magnesium (04/07/2022 4:30 AM EDT) athologist Signature Magnesium 0.76 0.69 - 1.07 [facility] STEFANIE mmol/L [facility] Specimen Anatomical Collection Method Collection Time Receive d Time (Source) Location / / Volume Laterality Blood 04/07/2022 4:30 AM 2 4:33 EDT AM EDT Resulting Agency Comment Spec In Lab Luther Purdy MD CHEMISTRY ORDERABLES Performing Organization Address City/[facility]/[place] [address] Rapid Drug Screen w/o Confirmation, Urine (04/07/2022 1:18 AM EDT) [facility] gist Method Time Signature U Barbiturates None None [facility] Screen Detected [facility] LABORATORY Comment: The barbiturate screen detects barbitura efrain at concentrations >200 ng/mL. Note: Not all barbiturates cross-react equally with antibody used in this screen. A ? Presumptive Positive? result indicates that the screening result was positive but has not yet been confirmed by a highly-specific method. As with any screen, occasional false positive re sults from cross-reacting substances may occur. Not for Medico-Legal Purposes. U Benzodiazepines Screen None Detected None Detected [facility] Comment: The benzodiazepines screen detects benzo diazepines at concentrations >100 ng/mL. Not all benzodiazepines cross-clif ct equally with antibody used in this screen. Due to the low dosage of clonaze kendy, false negatives may be obtained due to low concentration of clonazepam m etabolites. A ? Presumptive Positive? result indicates that the screening result was positive but has not yet been confirmed by a highly-specific method. As with any screen, occasional false positive re sults from cross-reacting substances may occur. Not for Medico-Legal Purposes. U Cocaine Screen None Detected None Detected [facility] Comment: The cocaine metabolites screen detects b enzoylecgonine (Cocaine Metabolite) at concentrations >150 ng/mL. A ? Presumptive Positive? result indicates that the screening result was positive but has not yet been confirmed by a highly-specific method. As with any screen, occasional false positive re sults from cross-reacting substances may occur. Not for Medico-Legal Purposes. U Methadone Metabolites None Detected None Detected [facility] LABORATORY Comment: The methadone metabolite screen detects EDDP (major methadone metabolite) at concentrations >100 ng/mL. A ? Presumptive Positive? result indicates that the screening result was positive but has not yet been confirmed by a highly-specific method. As with any screen, occasional false positive re sults from cross-reacting substances may occur. Not for Medico-Legal Purposes. U Opiate Screen None Detected None Detected [facility] Comment: The opiates screen detects opiates at co ncentrations >300 ng/mL. Please note that oxycodone, oxymorphone, fentanyl, tramadol, and other synthetic opioids are not detected by [facility] opiate screen. A ? Presumptive Positive? result indicates that the screening result was positive but has not yet been confirmed by a highly-specific method. As with any screen, occasional false positive re sults from cross-reacting substances may occur. Not for Medico-Legal Purposes. U Cannabinoid Screen None Detected None Detected Gabe LEAL [facility] Comment: The marijuana metabolites screen detects the THC metabolite (39-atu-6-carboxy-delta 9-THC) at concen trations >20 ng/mL. A ? Presumptive Positive? result indicates that the screening result was positive but has not yet been confirmed by a highly-specific method. As with any screen, occasional false positive re sults from cross-reacting substances may occur. Not for Medico-Legal Purposes. U Oxycodone Screen None Detected None Detected [facility] Comment: The oxycodone screen detects oxycodone a nd oxymorphone at concentrations >100 ng/mL. A ? Presumptive Positive? result indicates that the screening result was positive but has not yet been confirmed by a highly-specific method. As with any screen, occasional false positive re sults from cross-reacting substances may occur. Not for Medico-Legal Purposes. U Buprenorphine Screen None Detected None Detected [facility] Comment: The buprenorphine screen detects bupreno rphine at concentrations >5 ng/mL. A ? Presumptive Positive? result indicates that the screening result was positive but has not yet been confirmed by a highly-specific method. As with any screen, occasional false positive re sults from cross-reacting substances may occur. Not for Medico-Legal Purposes. U Fentanyl Screen None Detected None Detected Gabe ELVIS [facility] Comment: The fentanyl screen detects fentanyl at concentrations >2 ng/mL. A ? Presumptive Positive? result indicates that the screening result was positive but has not yet been confirmed by a highly-specific method. As with any screen, occasional false positive re sults from cross-reacting substances may occur. Not for Medico-Legal Purposes. U Tricyclics Screen None Detected None Detected OCTAVIO ALLISON [facility] Comment: The tricyclics screen detects tricyclic antidepressants at concentrations >150 ng/mL. Not all tricyclics cross-react eq ually with the antibody used in this screen. A ? Presumptive Positive? result indicates that the screening result was positive but has not yet been confirmed by a highly-specific method. As with any screen, occasional false positive re sults from cross-reacting substances may occur. Not for Medico-Legal Purposes. U Ethanol Screen None Detected None Detected [facility] Comment: This urine ethanol assay detect s ethanol at concentrations >/= 100 mg/L. U Amphetamines Screen None Detected None Detected [facility] Comment: The amphetamine screen detects d-ampheta mine and d-methamphetamine at concentrations >300 ng/mL. A ? Presumptive Positive? result indicates that the screening result was positive but has not yet been confirmed by a highly-specific method. As with any screen, occasional false positive re sults from cross-reacting substances may occur. Not for Medico-Legal Purposes. U Adulterants Screen None Detected None Detected Gabe LEAL [facility] Comment: No adulteration or dilution of this urin e sample was detected. All urine samples submitted for urine drugs of abu se analysis are tested for creatinine concentration, pH, and for the presence of oxidants, nitrites, and chromate. Specimen Anatomical Collection Method Collection Time Receive d Time (Source) Location / / Volume Laterality Urine 04/07/2022 1:18 AM 2 1:36 EDT AM EDT Resulting Agency Comment Spec In Lab Maurisio Amaya DO CHEMISTRY ORDERABLES Performing Organization Address City/[facility]/ZIP Code Phon e Number [place] [id number] Rapid Drug Screen, Urine (CAITLIN Request) (04/07/2022 1:18 AM EDT) P athologist Signature CAITLIN Conf No [facility] LABORATORY Comment: Collection date/time has been modified t o: 01:18:00. ??Previous collection date/time: 14:19:00 . Corrected from No [NA] on 04/07/22 1:36: 46 EDT by Orville Yonug. CAITLIN Requested See Comment [facility]OR[facility] Comment: Refer to Rapid Drug Screen w/o Confirmat ion, Urine for results. Collection date/time has been modified to: 2 01:18:00. ??Previous collection date/time: 14:19:00. Corrected from See Comment [NA] on 04/07 1:36:46 EDT by Orville Young. Specimen Anatomical Collection Method Collection Time Receive d Time (Source) Location / / Volume Laterality Urine 04/07/2022 1:18 AM 2 1:36 EDT AM EDT Resulting Agency Comment Spec In Lab Jak Bolivar MD URINE ORDERABLES Performing Organization Address City/[facility]/[place] [address] (ABNORMAL) Potassium (04/06/2022 6:00 PM EDT) P athologist Signature Potassium 3.1 (L) 3.5 - 5.0 [place] mmol/L [facility] Comment: Please note: ??Patients with WBC >100,00 0 may have falsely elevated Potassium levels. ??For accurate Potassium quantif ication in these patients send serum separator tube (gold top) for subsequent determinations. ??Contact the Clinical Chemistry Laboratory if there are any qu estions. Specimen Anatomical Collection Method Collection Time Receive d Time (Source) Location / / Volume Laterality Blood 04/06/2022 6:00 PM 2 6:13 EDT PM EDT Resulting Agency Comment Spec In Lab Jak Bolivar MD CHEMISTRY ORDERABLES Performing Organization Address [facility] Phon e Number [address] T4, free (04/06/2022 2:35 PM EDT) P athologist Signature Free T4 1.30 0.93 - 1.70 [place] ng/dL [facility] Comment: Reference Interval (ng/dL): Females: ??First Trimester: 0.97-1.68 ??Second Trimester: 0.77-1.51 ??Third Trimester: 0.77-1.49 Specimen Anatomical Collection Method Collection Time Receive d Time (Source) Location / / Volume Laterality Blood 04/06/2022 2:35 PM 2 2:42 EDT PM EDT Resulting Agency Comment Spec In Lab Jak Bolivar MD CHEMISTRY ORDERABLES Performing Organization Address City/[facility]/ZIP Code Phon e Number [address] TSH (04/06/2022 2:35 PM EDT) P athologist Signature TSH 3.14 0.27 - 4.20 [place] mcIU/mL [facility] Comment: Reference Interval (mcIU/mL): Females: ??First Trimester: 0.23-3.88 ??Second Trimester: 0.22-3.90 ??Third Trimester: 0.44-4.66 Specimen Anatomical Collection Method Collection Time Receive d Time (Source) Location / / Volume Laterality Blood 04/06/2022 2:35 PM 2 2:42 EDT PM EDT Resulting Agency Comment Spec In Lab Jak Bolivar MD CHEMISTRY ORDERABLES Performing Organization Address City/[facility]/ZIP Code Phon e Number [place] [phone] [facility] [address] Aldosterone (04/06/2022 2:35 PM EDT) athologist Signature Aldosterone <4.0 <=21 ng/dL [facility] Comment: ADDITIONAL INFORMATIO N Reference range for patients 11 years an d older is based on upright A.M. collection from subjects wi thout sodium restrictions. This test was developed and its performa nce characteristics determined by [facility] in a manner co nsistent with CLIA requirements. This test has not been cristy ared or approved by the U.S. Food and Drug Administration. Test Performed by: [facility] [address] [place] [address] [employer] Manager: Ruben Prasad M.D. Ph. D.; CLIA# [id number] Specimen Anatomical Collection Method Collection Time Receive d Time (Source) Location / / Volume Laterality Blood 04/06/2022 2:35 PM 2 9:37 EDT AM EDT Resulting Agency Comment Spec In Lab Jak Bolivar MD CHEMISTRY ORDERABLES Performing Organization Address City/[facility]/[place] [address] (ABNORMAL) Potassium (04/06/2022 10:10 AM EDT) athologist Signature Potassium 3.2 (L) 3.5 - 5.0 [facility] mmol/L [facility] Comment: Please note: ??Patients with WBC >100,00 0 may have falsely elevated Potassium levels. ??For accurate Potassium quantif ication in these patients send serum separator tube (gold top) for subsequent determinations. ??Contact the Clinical Chemistry Laboratory if there are any qu estions. Specimen Anatomical Collection Method Collection Time Receive d Time (Source) Location / / Volume Laterality Blood 04/06/2022 10:10 04/06/2022 AM EDT 10:27 AM EDT Resulting Agency Comment Spec In Lab Jak Bolivar MD CHEMISTRY ORDERABLES Performing Organization Address City/[facility]/[place] [address] (ABNORMAL) Troponin (04/06/2022 10:10 AM EDT) P athologist Signature Troponin-T 0.06 (H) 0.00 - [place] 0.00 ng/mL [facility] Comment: The 99th percentile for Troponin T is le ss than 0.01 ng/mL, any detectable cTnT concentration using this assay should be considered elevated. According to the third universal definit ion of myocardial infarction the following criteria with a clinical prese ntation consistent with acute myocardial ischemia meets the diagnosis for a myocardial infarction (ME). Detection of a rise and/or fall of cTnT, with at least one value greater than the 99th percentile (> or = 0.01) and wi th at least one of the following ?? Symptoms of ischemia ?? New or presumed new significant ST-se gment-T wave (ST-T) changes or new left bundle branch block (LBBB) ?? Development of pathologic Q waves in the ECG ?? Imaging evidence of new loss of viabl e myocardium or new regional wall motion abnormality ?? Identification of an intracoronary th rombus by angiography or autopsy Samples for cTnT testing should be obtai johnnie serially upon first assessment and again 3 to 6 hours later. If the clinica l suspicion is high and previous samples have been negative an additional sample may be indicated. Reference: Third Zion Definition of Myocardial Infarction. Journal of the [place] [employer] 2012;60:1581-98 Specimen Anatomical Collection Method Collection Time Receive d Time (Source) Location / / Volume Laterality Blood 04/06/2022 10:10 04/06/2022 AM EDT 10:27 AM EDT Resulting Agency Comment Spec In Lab Jak Bolivar MD CHEMISTRY ORDERABLES Performing Organization Address City/State/[place] [address] MRI Angiogram Head wo Contrast (Generic) (04/06/2022 9:42 AM EDT) Anatomical Region Laterality Modality Head Magnetic Resonance Specimen (Source) Anatomical Location Collection Method / Collectio n Time Received Time / Laterality Volume Impressions 04/06/2022 12:05 PM EDT No site of more than mild intracranial stenosis. Thank you for letting us participate in the care of this patient. ??If you are a health care provider and have any questi ons regarding this report, please contact the number below. ??For patients who have questions please contact the health animal care provider that requested your imaging first. ? Electronically signed by: Bret Calvert MD, [facility] ([phone]), at 04/06/2022 12:05 PM Narrative 04/06/2022 12:05 PM EDT EXAMINATION: MRI ANGIOGRAM HEAD WO CONTRAST (GENERIC) CLINICAL HISTORY: Cerebral hemorrhage carlson spected bilateral BG IPH likely hypertensive, ev al for underlying vessel abnormality TECHNIQUE: MRA of the head performed without contra st. 3-D MIP reconstructions were created. COMPARISON: None FINDINGS: Flow-related enhancement in the distal b ranches of the anterior, middle, and posterior cerebral arteries is present, there is no site of more than mild stenosis evident in the large arteries o f the head. No aneurysm or vascular malformation is evident. Procedure Note Bret Calvert MD - 04/06/2022Format ting of this note might be different from the original. EXAMINATION: MRI ANGIOGRAM HEAD WO CONTR AST (GENERIC) CLINICAL HISTORY: Cerebral hemorrhage carlson spected bilateral BG IPH likely hypertensive, ev al for underlying vessel abnormality TECHNIQUE: MRA of the head performed without contra st. 3-D MIP reconstructions were created. COMPARISON: None FINDINGS: Flow-related enhancement in the distal b ranches of the anterior, middle, and posterior cerebral arteries is present, there is no site of more than mild stenosis evident in the large arteries o f the head. No aneurysm or vascular malformation is evident. IMPRESSION No site of more than mild intracranial s tenosis. Thank you for letting us participate in the care of this patient. If you are a health care provider and have any questi ons regarding this report, please contact the number below. For patients w ho have questions please contact the health animal care provider that requested your imaging first. Electronically signed by: Bret Calvert MD, [facility] ([phone]), at 04/06/2022 12:05 PM Jammie Kulkarni APRN IMG MRI ORDERABLES MRI Brain wwo Contrast (Generic) (04/06/2022 9:42 AM EDT) Anatomical Region Laterality Modality Head Magnetic Resonance Specimen (Source) Anatomical Location Collection Method / Collectio n Time Received Time / Laterality Volume Impressions 04/06/2022 12:03 PM EDT 1. ??Extensive leukoaraiosis. 2. ??Extensive, largely nonenhancing, si gnal abnormality within the bilateral thalami. There is no decreased diffusion . Differential diagnosis includes sequela of old ischemia, vasogenic edema related to the sites of hemorrhage, and, less commonly, a toxic or metabolic disorder. 3. ??Innumerable small foci of intracere bral hemorrhage in a pattern consistent with long-standing hypertension. An latisha tional component related to amyloid angiopathy cannot be excluded. 4. ??Numerous small foci of acute or sub acute infarction scattered in the bilateral cerebral hemispheres Thank you for letting us participate in the care of this patient. ??If you are a health care provider and have any questi ons regarding this report, please contact the number below. ??For patients who have questions please contact the health animal care provider that requested your imaging first. ? Electronically signed by: Bret Calvert MD, [facility] ([phone]), at 04/06/2022 12:03 PM Narrative 04/06/2022 12:03 PM EDT EXAMINATION: MRI BRAIN WWO CONTRAST (GENERIC) CLINICAL HISTORY: Cerebral hemorrhage carlson spected bilateral BG IPH likely hypertensive, ev al for underlying lesion TECHNIQUE: MRI of the brain was performed before an d after the intravenous administration of 22cc Dotarem. COMPARISON: CT head of 04/05/2022 FINDINGS: Ventricles and sulci are unchanged in si ze and configuration. There is no change in the size of the hemorrhagic foci with in the bilateral thalami. There is extensive patchy T2 prolongation within the white matter of the bilateral cerebral hemispheres. Within this materi al and in the right caudate head and deep right frontal white matter and in t he bilateral frontal and parietal lobes near the cerebral convexity there are sm all foci of decreased diffusion consistent with acute or subacute infarc tion. The single largest focus of decreased diffusion is present along the occipital horn of the left lateral ventricle; while the location is unusual this does not appear to be artifactual likely represents an additional site of infarction. No layering material is evident within the ventricles on other s equences. There are numerable foci of susceptibility-related signal loss withi n the cerebral hemispheres, brainstem and cerebellum. In addition to the extensive white matte r signal abnormality there is irregular T2 prolongation within the thalami and p osterior limbs internal capsules bilaterally. This material does not show decreased diffusion. The corpus striatum is relatively spared. There is no extra-axial collection, mass , or abnormal enhancement with the exception of minor questionable enhancem ent within the left thalamus and enhancement of several of the small foci of decreased diffusion within the cerebral hemispheres. No expansile or ab normal enhancing calvarial lesion is present. Leptomeninges are of normal ruiz earance. The orbits show no abnormality. Procedure Note Bret Calvert MD - 04/06/2022Format ting of this note might be different from the original. EXAMINATION: MRI BRAIN WWO CONTRAST (GEN [place]) CLINICAL HISTORY: Cerebral hemorrhage carlson spected bilateral BG IPH likely hypertensive, ev al for underlying lesion TECHNIQUE: MRI of the brain was performed before an d after the intravenous administration of 22cc Dotarem. COMPARISON: CT head of 04/05/2022 FINDINGS: Ventricles and sulci are unchanged in si ze and configuration. There is no change in the size of the hemorrhagic foci with in the bilateral thalami. There is extensive patchy T2 prolongation within the white matter of the bilateral cerebral hemispheres. Within this materi al and in the right caudate head and deep right frontal white matter and in t he bilateral frontal and parietal lobes near the cerebral convexity there are sm all foci of decreased diffusion consistent with acute or subacute infarc tion. The single largest focus of decreased diffusion is present along the occipital horn of the left lateral ventricle; while the location is unusual this does not appear to be artifactual likely represents an additional site of infarction. No layering material is evident within the ventricles on other s equences. There are numerable foci of susceptibility-related signal loss withi n the cerebral hemispheres, brainstem and cerebellum. In addition to the extensive white matte r signal abnormality there is irregular T2 prolongation within the thalami and p osterior limbs internal capsules bilaterally. This material does not show decreased diffusion. The corpus striatum is relatively spared. There is no extra-axial collection, mass , or abnormal enhancement with the exception of minor questionable enhancem ent within the left thalamus and enhancement of several of the small foci of decreased diffusion within the cerebral hemispheres. No expansile or ab normal enhancing calvarial lesion is present. Leptomeninges are of normal ruiz earance. The orbits show no abnormality. IMPRESSION 1. Extensive leukoaraiosis. 2. Extensive, largely nonenhancing, sign al abnormality within the bilateral thalami. There is no decreased diffusion . Differential diagnosis includes sequela of old ischemia, vasogenic edema related to the sites of hemorrhage, and, less commonly, a toxic or metabolic disorder. 3. Innumerable small foci of intracerebr al hemorrhage in a pattern consistent with long-standing hypertension. An latisha tional component related to amyloid angiopathy cannot be excluded. 4. Numerous small foci of acute or subac dmitry infarction scattered in the bilateral cerebral hemispheres Thank you for letting us participate in the care of this patient. If you are a health care provider and have any questi ons regarding this report, please contact the number below. For patients w ho have questions please contact the health animal care provider that requested your imaging first. Electronically signed by: Bret Calvert MD, [facility] ([phone]), at 04/06/2022 12:03 PM Jammie Kulkarni APRN IMG MRI ORDERABLES (ABNORMAL) Differential, Automated (04/06/2022 4:15 AM EDT) [facility] gist Method Time Signature Neutrophils % 80.6 % [facility] Neutr Abs (ANC) 10.17 (H) 1.70 - [facility] 6.10 [facility] x10(3)/[facility] LABORATORY Lymphocytes % 10.4 % [facility] Lymphocytes Abs 1.3 0.9 - 3.2 [facility] x10(3)/[facility] LABORATORY Monocytes % 6.5 % [facility] Monocyte Abs 0.8 0.3 - 0.9 [facility] x10(3)/[facility] LABORATORY Eosinophils % 1.5 % [facility] Eosinophils Abs 0.2 0.0 - 0.4 [facility] x10(3)/[facility] LABORATORY Basophils % 0.4 % [facility] Basophils Abs 0.0 0.0 - 0.1 [facility] x10(3)/[facility] LABORATORY Immature Gran % 0.60 % [facility] Comment: Immature granulocytes(IG's)percentage an d absolute count will include metamyelocytes, myelocytes, and promyelo cytes. Blood smears from CBCs yielding IG's will be scanned manually for concor dance. If this scan disagrees with the automated IG or if promyelocytes are not ed, a manual differential will be performed. [place] Abs 0.07 (H) 0.00 - 0.04 x10(3)/[facility] LABORATORY Specimen Anatomical Collection Method Collection Time Receive d Time (Source) Location / / Volume Laterality Blood 04/06/2022 4:15 AM 4:24 EDT AM EDT Resulting Agency Comment Spec In Lab Jammie Kulkarni APRN HEMATOLOGY ORDERABLES Performing Organization Address City/State/[place] [address] (ABNORMAL) Hemogram (04/06/2022 4:15 AM EDT) Analysis Performed At [facility] logist Time Signature WBC 12.6 (H) 4.0 - 9.5 [facility] x10(3)/[facility] LABORATORY RBC 3.86 (L) 4.58 - [facility] 5.54 [facility] x10(6)/[facility] LABORATORY Hemoglobin 11.9 (L) 13.7 - [facility] 16.5 g/dL [facility] Hematocrit 32.8 (L) 40.5 - [facility] 48.5 % [facility] MCV 85.0 82.9 - [facility] 93.1 [facility] LABORATORY MCH 30.8 27.5 - [facility] 32.1 pg [facility] MCHC 36.3 (H) 32.0 - [facility] 35.7 g/dL [facility] Platelets 178 145 - 357 [facility] x10(3)/[facility] LABORATORY RDWSD 40.0 36.0 - [facility] 45.0 [facility] LABORATORY RDWCV 13.0 11.4 - [facility] 13.8 % [facility] LABORATORY MPV 9.6 7.6 - 12.9 [facility] LABORATORY nRBC % Auto 0.0 % [facility] LABORAT[facility] nRBC Abs Auto 0.000 0.000 - [facility] 0.000 [facility] x10(3)/[facility] LABORATORY Specimen Anatomical Collection Method Collection Time Receive d Time (Source) Location / / Volume Laterality Blood 04/06/2022 4:15 AM 4:24 EDT AM EDT Resulting Agency Comment Spec In Lab Jammie Kulkarni APRN HEMATOLOGY ORDERABLES Performing Organization Address City/State/[place] [address] (ABNORMAL) Basic Metabolic Panel (non-fasting) (04/06/2022 4:15 AM EDT) P athologist Signature Glucose Lvl 138 65 - 199 [facility] mg/dL [facility] Comment: Diabetes: >=200 mg/dL plus symp toms BUN 28 (H) 10 - 20 mg/dL [facility] LABORATORY Creatinine 1.99 (H) 0.80 - 1.50 mg/dL [facility] LABOR[facility] Sodium 139 135 - 145 mmol/L [facility] Potassium 2.9 (Critical) 3.5 - 5.0 mmol/L [facility] Comment: Called by: rema, Read back by: sita king, Date/Time:04/06/22 04:53. Please note: ??Patients with WBC >100,00 0 may have falsely elevated Potassium levels. ??For accurate Potassium quantif ication in these patients send serum separator tube (gold top) for subsequent determinations. ??Contact the Clinical Chemistry Laboratory if there are any qu estions. Chloride 102 98 - 107 mmol/L [facility] CO2 23 22 - 31 mmol/L [facility] Anion Gap 14 5 - 15 mmol/L [facility]ORY Calcium 8.8 8.5 - 10.5 mg/dL [facility] Estimated GFR 38 (L) >=60 mL/min/1.73 m?? [facility] Comment: This patient's estimated GFR was calcula agustin using the 2020 CKD-EPI equation. The estimated GFR can vary from the satinder ured GFR by up to 30% in the absence of rapidly changing kidney function. Assess ment of the estimated GFR is not appropriate when creatinine concentratio ns are rapidly changing. For clinical situations in which a more precise estim ate of GFR is necessary, consider alternative methods of GFR estimation carlson ch as a 24-hour urine creatinine clearance. Assignment of CKD stage 1-5 for patients with an eGFR near the transition point between stages may be based on clinical assessment of muscle mass and symptoms in addition to eGFR. Specimen Anatomical Collection Method Collection Time Receive d Time (Source) Location / / Volume Laterality Blood 04/06/2022 4:15 AM 4:24 EDT AM EDT Resulting Agency Comment Spec In Lab Luther Purdy MD CHEMISTRY ORDERABLES Performing Organization Address City/State/[place] [address] Phosphorus (04/06/2022 4:15 AM EDT) athologist Signature Phosphorus 3.7 2.5 - 4.5 [place] mg/dL [facility] Specimen Anatomical Collection Method Collection Time Receive d Time (Source) Location / / Volume Laterality Blood 04/06/2022 4:15 AM 2 4:24 EDT AM EDT Resulting Agency Comment Spec In Lab Luther Purdy MD CHEMISTRY ORDERABLES Performing Organization Address City/State/[place] [address] Magnesium (04/06/2022 4:15 AM EDT) athologist Signature Magnesium 0.79 0.69 - 1.07 [place] mmol/L [facility] Specimen Anatomical Collection Method Collection Time Receive d Time (Source) Location / / Volume Laterality Blood 04/06/2022 4:15 AM 2 4:24 EDT AM EDT Resulting Agency Comment Spec In Lab Luther Purdy MD CHEMISTRY ORDERABLES Performing Organization Address City/[facility]/ZIP Code Phon e Number [address] (ABNORMAL) Troponin (04/06/2022 4:15 AM EDT) athologist [facility] Troponin-T 0.06 (H) 0.00 - [place] 0.00 ng/mL [facility] Comment: The 99th percentile for Troponin T is le ss than 0.01 ng/mL, any detectable cTnT concentration using this assay should be considered elevated. According to the third universal definit ion of myocardial infarction the following criteria with a clinical prese ntation consistent with acute myocardial ischemia meets the diagnosis for a myocardial infarction (ME). Detection of a rise and/or fall of cTnT, with at least one value greater than the 99th percentile (> or = 0.01) and wi th at least one of the following ?? Symptoms of ischemia ?? New or presumed new significant ST-se gment-T wave (ST-T) changes or new left bundle branch block (LBBB) ?? Development of pathologic Q waves in the ECG ?? Imaging evidence of new loss of viabl e myocardium or new regional wall motion abnormality ?? Identification of an intracoronary th rombus by angiography or autopsy Samples for cTnT testing should be obtai johnnie serially upon first assessment and again 3 to 6 hours later. If the clinica l suspicion is high and previous samples have been negative an additional sample may be indicated. Reference: Third [place] Definition of Myocardial Infarction. Journal of the [place] [employer] 2012;60:1581-98 Specimen Anatomical Collection Method Collection Time Receive d Time (Source) Location / / Volume Laterality Blood 04/06/2022 4:15 AM 4:24 EDT AM EDT Resulting Agency Comment Spec In Lab Jak Bolivar MD CHEMISTRY ORDERABLES Performing Organization Address City/[facility]/ZIP Code Phon e Number [address] Urine Hold (04/06/2022 2:13 AM EDT) P athologist Signature Urine Hold Sample in [facility]. [facility] Specimen Anatomical Collection Method Collection Time Receive d Time (Source) Location / / Volume Laterality Urine Urine / Unknown 04/06/2022 2:13 AM 2021 2:23 EDT AM EDT Jammie Kulkarni APRN URINE ORDERABLES Performing Organization Address City/[facility]/[place] [address] (ABNORMAL) _Urinalysis with microscopic (04/06/2022 2:13 AM EDT) Patholo gist Method Time Signature Glucose UA Negative Negative [facility] Protein UA 100 (A) Negative [facility] mg/dL [facility] Bilirubin UA Negative Negative [facility] mg/dL [facility] Comment: Clinical correlation required for positi ve Urine Bilirubin results as false positive may occur with some drugs and d rug related products. If a false positive is suspected a serum total bili rubio should be considered if clinically indicated. Urobilinogen UA Normal Normal mg/dL [facility] pH UA 5.5 5.0 - 8.0 [facility] Blood UA Large (A) Negative mg/dL [facility] Ketones UA Trace (A) Negative mg/dL [facility] Nitrite UA Negative Negative [facility] Leukocytes UA Negative Negative [facility] LABORATORY Appearance UA Cloudy (A) Clear [facility] Spec [place] UA 1.020 1.005 - 1.030 [facility] Color UA Dark Yellow Yellow [facility] RBC UA >100 (H) 0 - 3 /HPF [facility] WBC UA 0 0 - 3 /HPF [facility] Bacteria UA Rare (A) None /HPF [facility] Comment: Interpret with caution, manual microscopic results are from an unspun specimen Hyaline Cast UA 4 (H) 0 - 2 /LPF [facility] Specimen Anatomical Collection Method Collection Time Receive d Time (Source) Location / / Volume Laterality Urine 04/06/2022 2:13 AM 2:20 EDT AM EDT Resulting Agency Comment Spec In Lab Jammie Kulkarni APRN URINE ORDERABLES Performing Organization Address City/State/[place] [address] Aldosterone (04/05/2022 10:39 PM EDT) athologist Signature Aldosterone <4.0 <=21 ng/dL [facility] Comment: ADDITIONAL INFORMATIO N Reference range for patients 11 years an d older is based on upright A.M. collection from subjects wi thout sodium restrictions. This test was developed and its performa nce characteristics determined by [facility] in a manner co nsistent with CLIA requirements. This test has not been cristy ared or approved by the U.S. Food and Drug Administration. Test Performed by: [facility] [address] [address] [address] Fre[employer] Manager: Ruben Prasad M.D. Ph. D.; CLIA# [id number] Specimen Anatomical Collection Method Collection Time Receive d Time (Source) Location / / Volume Laterality Blood Venous Draw / 04/05/2022 10:39 04/10/2022 3:26 Unknown PM EDT PM EDT Resulting Agency Comment Spec In Lab Marc Norris MD CHEMISTRY ORDERABLES Performing Organization Address City/State/[place] [address] Gold Tube HOLD (04/05/2022 10:39 PM EDT) P athologist Signature Gold Hold Sample in [facility] lab. [facility] Specimen Anatomical Collection Method Collection Time Receive d Time (Source) Location / / Volume Laterality Blood Venous Draw / 04/05/2022 10:39 04/05/2022 Unknown PM EDT 10:47 PM EDT Michelle RODRIGUEZ CHEMISTRY ORDERABLES Performing Organization Address City/[facility]/[place] [address] (ABNORMAL) Troponin (04/05/2022 10:39 PM EDT) P athologist Signature Troponin-T 0.04 (H) 0.00 - [facility] 0.00 ng/mL [facility] Comment: The 99th percentile for Troponin T is le ss than 0.01 ng/mL, any detectable cTnT concentration using this assay should be considered elevated. According to the third universal definit ion of myocardial infarction the following criteria with a clinical prese ntation consistent with acute myocardial ischemia meets the diagnosis for a myocardial infarction (ME). Detection of a rise and/or fall of cTnT, with at least one value greater than the 99th percentile (> or = 0.01) and wi th at least one of the following ?? Symptoms of ischemia ?? New or presumed new significant ST-se gment-T wave (ST-T) changes or new left bundle branch block (LBBB) ?? Development of pathologic Q waves in the ECG ?? Imaging evidence of new loss of viabl e myocardium or new regional wall motion abnormality ?? Identification of an intracoronary th rombus by angiography or autopsy Samples for cTnT testing should be obtai johnnie serially upon first assessment and again 3 to 6 hours later. If the clinica l suspicion is high and previous samples have been negative an additional sample may be indicated. Reference: Third Zion Definition of Myocardial Infarction. Journal of the [place] [employer] 2012;60:1581-98 Specimen Anatomical Collection Method Collection Time Receive d Time (Source) Location / / Volume Laterality Blood 04/05/2022 10:39 04/05/2022 PM EDT 10:46 PM EDT Resulting Agency Comment Spec In Lab Jak Bolivar MD CHEMISTRY ORDERABLES Performing Organization Address City/[facility]/ZIP Code Phon e Number [address] POCT Glucose (04/05/2022 8:52 PM EDT) P athologist Signature POC Glucose 144 65 - 199 [facility] mg/dL [facility] Comment: Supplemental ranges: <140 mg/dL before meals <180 mg/dL all other times of the day Specimen Anatomical Collection Method Collection Time Receive d Time (Source) Location / / Volume Laterality Blood 04/05/2022 8:52 PM 2 8:52 EDT PM EDT Jak Bolivar MD POINT OF CARE TEST ORDERABLE S Performing Organization Address City/[facility]/[place] [address] Type and Screen Validity (04/05/2022 7:43 PM EDT) [facility] Method Time Signature T&S only valid [facility] at [facility] Comment: This Type and Screen result is only valid at the [facility] Specimen Anatomical Collection Method Collection Time Receive d Time (Source) Location / / Volume Laterality Blood 04/05/2022 7:43 PM 2 7:45 EDT PM EDT Resulting Agency Comment Spec In Lab Jammie Kulkarni APRN BLOOD BANK ORDERABLES Performing Organization Address City/[facility]/ZIP Code Phon e Number [address] ABORH Recheck Status (04/05/2022 7:43 PM EDT) [facility] [employer] Method Time Signature ABORH Type Completed [facility] LABORATORY Specimen Anatomical Collection Method Collection Time Receive d Time (Source) Location / / Volume Laterality Blood 04/05/2022 7:43 PM 2 7:45 EDT PM EDT Resulting Agency Comment Spec In Lab Jammie Kulkarni APRN BLOOD BANK ORDERABLES Performing Organization Address City/State/[place] [address] Antibody screen (04/05/2022 7:43 PM EDT) Patholo gist Method Time Signature Ab Screen Negative [facility] LABORATORY Expires at 04/08/2022 [facility] [id number] on: [facility] Specimen Anatomical Collection Method Collection Time Receive d Time (Source) Location / / Volume Laterality Blood 04/05/2022 7:43 PM 2 7:45 EDT PM EDT Resulting Agency Comment Spec In Lab Jammie Kulkarni APRN BLOOD BANK ORDERABLES Performing Organization Address City/[facility]/[place] [address] ABO/Rh Typing (04/05/2022 7:43 PM EDT) P athologist Signature ABORh Type O Pos [facility]OR[facility]ORY Specimen Anatomical Collection Method Collection Time Receive d Time (Source) Location / / Volume Laterality Blood 04/05/2022 7:43 PM 2 7:45 EDT PM EDT Resulting Agency Comment Spec In Lab Jammie Kulkarni APRN BLOOD BANK ORDERABLES Performing Organization Address City/[facility]/[place] [address] Head wo Contrast (Generic) (04/05/2022 6:39 PM EDT) Anatomical Region Laterality Modality Head Computed Tomography Specimen (Source) Anatomical Collection Method Collection Time Re ceived Time Location / / Volume Laterality 04/05/2022 6:59 PM EDT Impressions 04/05/2022 6:55 PM EDT Areas of hypoattenuation within the bila teral thalami most likely representing ischemic infarction. Differential diagno sis includes vasogenic edema about sites of hemorrhage but the areas of hypoatten uation are large relative to the sites of hemorrhage, the hypoattenuation is sh arply marginated, and there is little mass effect. The sites of high attenuation material w ithin each of these areas, likely hemorrhage, are unchanged. Extensive inflammatory changes of the pa ranasal sinuses. Thank you for letting us participate in the care of this patient. ??If you are a health care provider and have any questi ons regarding this report, please contact the number below. ??For patients who have questions please contact the health animal care provider that requested your imaging first. ? Electronically signed by: Bret Calvert MD, [facility] ([phone]), at 04/05/2022 6:55 PM Narrative 04/05/2022 6:55 PM EDT EXAMINATION: CT HEAD WO CONTRAST (GENERIC) CLINICAL HISTORY: Cerebral hemorrhage carlson spected TECHNIQUE: Axial sections through the he ad were obtained without intravenous contrast. COMPARISON: CT head of 04/05/2022 at 11:34 AM. FINDINGS: The areas of hypoattenuation w ithin the thalamus bilaterally show no interval change in size; they're slightl y more conspicuous than they had been on the prior study. Within the area of hypo attenuation in the right anterior thalamus there is a small area of high a ttenuation material likely representing hemorrhage; its size is unchanged. There are small sites of high attenuation material in the area of hypoattenuation on the left that also likely represents sites of hemorrhage as calcification in these areas is unusual. Attenuation within the brainstem is hete rogeneous but this is most commonly related to artifact. No clear CHILD LIFE THERAPIST distri bution infarction is evident. The basilar and intradural vertebral arterie s are mildly ectatic and tortuous. There is no ventriculomegaly. No expansile or lytic bone lesion is present. There is extensive opacification of the paranasal sinuses. The orbits are of normal appearance. Procedure Note Bret Calvert MD - 04/05/2022Format ting of this note might be different from the original. EXAMINATION: CT HEAD WO CONTRAST (GENERI C) CLINICAL HISTORY: Cerebral hemorrhage carlson spected TECHNIQUE: Axial sections through the he ad were obtained without intravenous contrast. COMPARISON: CT head of 04/05/2022 at 11:34 AM. FINDINGS: The areas of hypoattenuation w ithin the thalamus bilaterally show no interval change in size; they're slightl y more conspicuous than they had been on the prior study. Within the area of hypo attenuation in the right anterior thalamus there is a small area of high a ttenuation material likely representing hemorrhage; its size is unchanged. There are small sites of high attenuation material in the area of hypoattenuation on the left that also likely represents sites of hemorrhage as calcification in these areas is unusual. Attenuation within the brainstem is hete rogeneous but this is most commonly related to artifact. No clear CHILD LIFE THERAPIST distri bution infarction is evident. The basilar and intradural vertebral arterie s are mildly ectatic and tortuous. There is no ventriculomegaly. No expansile or lytic bone lesion is present. There is extensive opacification of the paranasal sinuses. The orbits are of normal appearance. IMPRESSION Areas of hypoattenuation within the bila teral thalami most likely representing ischemic infarction. Differential diagno sis includes vasogenic edema about sites of hemorrhage but the areas of hypoatten uation are large relative to the sites of hemorrhage, the hypoattenuation is sh arply marginated, and there is little mass effect. The sites of high attenuation material w ithin each of these areas, likely hemorrhage, are unchanged. Extensive inflammatory changes of the pa ranasal sinuses. Thank you for letting us participate in the care of this patient. If you are a health care provider and have any questi ons regarding this report, please contact the number below. For patients w ho have questions please contact the health animal care provider that requested your imaging first. Electronically signed by: Bret Calvert MD, [facility] ([phone]), at 04/05/2022 6:55 PM Jammie Kulkarni [facility] ORDERABLES EKG 12 Lead (04/05/2022 4:08 PM EDT) Component Value Ref Range Test Analysis Performed Pathologis t Method Time At Signature Ventricular rate 79 BPM MUSE SYSTEM Atrial Rate 79 BPM MUSE SYSTEM P-R Interval 172 ms MUSE SYSTEM QRS Duration 110 ms MUSE SYSTEM Q-T Interval 492 ms MUSE SYSTEM QTC Calculated 564 ms MUSE SYSTEM (Bezet) Calculated P [place] 50 degrees MUSE SYSTEM Calculated R [place] -44 degrees MUSE SYSTEM Calculated T [place] 56 degrees MUSE SYSTEM INTERPRETATION Poor data quality, interpretation may be adversel y affected MUSE SYSTEM Normal sinus rhythm Possible Left atrial enlargement Left axis deviation Left ventricular hypertrophy with repolarization abnormality Nonspecific ST abnormality Prolonged QT Abnormal ECG No previous ECGs available Confirmed by MD George, Avtar Mendez ([id number]) on 04/06/2022 11:1 8:18 AM Specimen Anatomical Collection Method Collection Time Receive d Time (Source) Location / / Volume Laterality 04/05/2022 4:08 PM 2 EDT 11:18 AM EDT Jammie Kulkarni APRN ECG ORDERABLES Performing Organization Address City/State/ZIP Code Phon e Number MUSE SYSTEM POCT Glucose (04/05/2022 3:48 PM EDT) athologist Signature POC Glucose 138 65 - 199 [facility] mg/dL [facility] Comment: Supplemental ranges: <140 mg/dL before meals <180 mg/dL all other times of the day Specimen Anatomical Collection Method Collection Time Receive d Time (Source) Location / / Volume Laterality Blood 04/05/2022 3:48 PM 2 3:48 EDT PM EDT Jak Bolivar MD POINT OF CARE TEST ORDERABLE S Performing Organization Address City/State/[place] [address] (ABNORMAL) Troponin (04/05/2022 3:35 PM EDT) P athologist Signature Troponin-T 0.02 (H) 0.00 - [facility] 0.00 ng/mL [facility] Comment: The 99th percentile for Troponin T is le ss than 0.01 ng/mL, any detectable cTnT concentration using this assay should be considered elevated. According to the third universal definit ion of myocardial infarction the following criteria with a clinical prese ntation consistent with acute myocardial ischemia meets the diagnosis for a myocardial infarction (ME). Detection of a rise and/or fall of cTnT, with at least one value greater than the 99th percentile (> or = 0.01) and wi th at least one of the following ?? Symptoms of ischemia ?? New or presumed new significant ST-se gment-T wave (ST-T) changes or new left bundle branch block (LBBB) ?? Development of pathologic Q waves in the ECG ?? Imaging evidence of new loss of viabl e myocardium or new regional wall motion abnormality ?? Identification of an intracoronary th rombus by angiography or autopsy Samples for cTnT testing should be obtai johnnie serially upon first assessment and again 3 to 6 hours later. If the clinica l suspicion is high and previous samples have been negative an additional sample may be indicated. Reference: Third [place] Definition of Myocardial Infarction. Journal of the [place] [employer] 2012;60:1581-98 Specimen Anatomical Collection Method Collection Time Receive d Time (Source) Location / / Volume Laterality Blood 04/05/2022 3:35 PM 2 4:07 EDT PM EDT Resulting Agency Comment Spec In Lab Jammie Kulkarni APRN CHEMISTRY ORDERABLES Performing Organization Address City/State/[place] [address] (ABNORMAL) Hepatic Function Panel (04/05/2022 3:35 PM EDT) athologist Signature Total Protein 7.3 6.1 - 8.0 PREETI STEFANIE g/dL [facility] Albumin 4.1 3.2 - 5.2 PREETI STEFANIE g/dL [facility] AST 32 0 - 39 PREETI STEFANIE unit/L [facility] ALT 37 0 - 55 PREETI STEFANIE unit/L [facility] Alk Phos 65 40 - 130 PREETI STEFANIE unit/L [facility] Total 1.3 0.2 - 1.3 PREETI STEFANIE Bilirubin mg/dL [facility] Bili, Direct 0.6 (H) 0.0 - 0.3 PREETI STEFANIE mg/dL [facility] Specimen Anatomical Collection Method Collection Time Receive d Time (Source) Location / / Volume Laterality Blood 04/05/2022 3:35 PM 2 4:07 EDT PM EDT Resulting Agency Comment Spec In Lab Jammie Kulkarni APRN CHEMISTRY ORDERABLES Performing Organization Address City/[facility]/[place] [address] TSH (04/05/2022 3:35 PM EDT) athologist Signature TSH 2.20 0.27 - 4.20 [facility] mcIU/mL [facility] Comment: Reference Interval (mcIU/mL): Females: ??First Trimester: 0.23-3.88 ??Second Trimester: 0.22-3.90 ??Third Trimester: 0.44-4.66 Specimen Anatomical Collection Method Collection Time Receive d Time (Source) Location / / Volume Laterality Blood 04/05/2022 3:35 PM 2 4:07 EDT PM EDT Resulting Agency Comment Spec In Lab Jammie Kulkarni APRN CHEMISTRY ORDERABLES Performing Organization Address [facility] [place] [address] APTT (04/05/2022 3:35 PM EDT) athologist Signature PTT 31 25 - 37 sec [facility] Comment: The PTT is NOT appropriate for heparin m onitoring. Use the Anti-Xa level for heparin monitoring (HEP UFH) or LMWH mon itoring (HEP LMW). A PTT less than 37 seconds generally indicates adequate hem ostasis. Specimen Anatomical Collection Method Collection Time Receive d Time (Source) Location / / Volume Laterality Blood 04/05/2022 3:35 PM 2 4:07 EDT PM EDT Resulting Agency Comment Spec In Lab Jammie Kulkarni APRN HEMATOLOGY ORDERABLES Performing Organization Address [facility]/[place] [address] (ABNORMAL) Prothrombin Time (04/05/2022 3:35 PM EDT) P athologist Signature PT 13.2 (H) 9.4 - 12.5 [facility] LABORATORY INR 1.2 [facility] Comment: An INR <2.0 indicates adequate procoagul ant activity for hemostasis in most patients without underlying bleeding dis orders, though the INR may not adequately reflect hemostatic capacity i n patients with liver disease and synthetic impairment. The recommended ta rget INR range for therapeutic anticoagulation is 2.0 ? 3.0 for most applications, though lower and higher ranges may be appropriate depending on c linical circumstances. 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 Other encephalopathy Nontraumatic intracerebral hemorrhage, u nspecified cerebral location, unspecified laterality Nontraumatic multiple localized intracer ebral hemorrhages, unspecified laterality Troponinemia likely demand ischemia Other abnormal blood chemistry Hypertensive emergency Unspecified essential hypertension Nontraumatic subcortical hemorrhage of c erebral hemisphere, unspecified laterality bilat thalamic hemorrhages etiology PRES with hypertensive emergency Intracerebral hemorrhage multifocal small foci of scattered infar ction in setting of PRES with hypertensive emergency Unspecified cerebral artery occlusion wi th cerebral infarction MARY (acute kidney injury) Acute kidney failure, unspecified documented in this encounter Admitting Diagnoses Diagnosis ICH (intracerebral hemorrhage) Intracerebral hemorrhage documented in this encounter Administered Medications Inactive Administered Medications - up to 3 most recent administrations Medication Order MAR Action Action Date Dose Rate Site acetaminophen (Tylenol) (32.02 mg/mL) or al liquid 975 mg 975 mg, Per G Tube, EVERY 6 HOURS PRN, S tarting on 04/05/22 at 1534, Until 04/14/22 at 1605, Pain, Fever, pain or temperature grea ter than 100 degrees F (measured by mouth), Maximum dose of anat taminophen is 4000 mg from all sources in 24 hours. When ordered for pain, acetaminophen should be given even when other ordered pain medications are indicated. , Routine acetaminophen (Tylenol) suppository 975 mg 975 mg, Rectal, EVERY 6 HOURS PRN, Starting on Sat 04/05 at 1534, Until 04/14/22 at 1605, Pain, Fever, pain or temperature grea ter than 100 degrees F (measured by mouth), Maximum dose of anat taminophen is 4000 mg from all sources in 24 hours. When ordered for pain, acetaminophen should be given even when other ordered pain medications are indicated. , Routine acetaminophen (Tylenol) tablet 975 mg Given 04/12/2022 6:57 PM EDT 975 mg 975 mg, Oral, EVERY 6 HOURS PRN, Starting on 04/05/22 at 1534, Until 04/14/22 at 1605, Pain, Fever, pain or temperature greater than 100 degrees F (measured by mouth), Maximum dose of acetaminophen is 4000 mg from all sources in 24 hours. When ordered for pain, acetaminophen should be given even when other ordered pain medications are indicated. , Routine Given 04/12/2022 2:50 AM EDT 975 mg Given 04/11/2022 7:33 AM EDT 975 mg amLODIPine (Norvasc) tablet 10 mg Given 04/14/2022 8:26 AM EDT 10 mg 10 mg, Oral, DAILY, First dose on Thu04/09/22 at 1900, Until Discontinued, Routine Given 04/13/2022 8:52 AM EDT 10 mg Given 04/12/2022 8:25 AM EDT 10 mg chlorthalidone (Hygroten) tablet 25 mg Given 04/14/2022 8:24 AM EDT 25 mg 25 mg, Oral, DAILY, First dose on Marzena 04/10/22 at 1630, Until Discontinued, Routine Given 04/13/2022 8:53 AM EDT 25 mg Given 04/12/2022 8:25 AM EDT 25 mg enalaprilat (Vasotec) (1.25 mg/mL) injection Given 05/2022 1:37 PM EDT 1.25 mg 1.25 mg 1.25 mg, Intravenous, EVERY 6 HOURS PRN, Starting on 04/05/22 at 1534, Until Thu04/09/22 at 1801, Hypertension, - Administer if inadequate blood pressure control in 30 minutes despite Labetalol. enalaprilat can be given with labetalol or nicardipine. - Give when SBP is greater than 160 mmHg or DBP greater than 90 mmHg., Routine Given 04/07/2022 11:35 AM EDT 1.25 mg Given 04/05/2022 5:01 PM EDT 1.25 mg gadoterate meglumine (Dotarem) (0.5 mMol/mL) Given 02/2022 9:32 AM EDT 22 mLs injection solution 0-100 mL 0-100 mL, Intravenous, ONCE PRN, 1 dose, Starting on 04/06/22 at 0947, Until 04/06/22 at 0932, Per Protocol, Radiology Contrast, Routine heparin (porcine) (5,000 units/1 mL) Given 04/14/2022 6:18 AM ED T 5,000 Units subcutaneous injection 5,000 Units 5,000 Units, Subcutaneous, EVERY 8 HOURS SCHEDULED, First dose on 04/07/22 at 1400, Until Discontinued, Routine Given 04/13/2022 8:51 PM EDT 5,000 Units Given 04/13/2022 2:20 PM EDT 5,000 Units hydrALAZINE (Apresoline) (20 mg/mL) injection Given 8:01 AM EDT 10 mg 10 mg 10 mg, Intravenous, EVERY 4 HOURS PRN, Starting on 04/05/22 at 2027, Until Thu04/09/22 at 1801, High Blood Pressure Given 04/07/2022 10:10 AM EDT 10 mg Given 04/06/2022 5:45 AM EDT 10 mg hydrALAZINE (Apresoline) (20 mg/mL) inje ction 10 mg 10 mg, Intravenous, EVERY 4 HOURS PRN, S tarting on 04/12/22 at 1319, Until 04/14/22 at 1605, High Blood Pressure, SBP >180 labetaloL (Normodyne) (5 mg/mL) injection Given 04/11/2022 11:15 PM EDT 10 mg solution 10-20 mg 10-20 mg, Intravenous, EVERY 15 MIN PRN, Starting on 04/05/22 at 1534, Until Thu04/14/22 at 1605, High Blood Pressure, - Administer for systolic blood pressure (SBP) sustained greater than 180 mmHg. - Administer 10 mg over 2 minutes. May repeat every 15 minutes if SBP remains above goal. - If inadequate effect with 10 mg dose then increase dose to 20 mg for subsequent dosing every 15 minutes. - Dose not to exceed 300 mg per day. Hold if pulse is less than 50 beats per minute. If Labetalol does not satisfactorily control BP within 30 minutes, consider enalaprilat or niCARdipine., Routine Given 04/10/2022 12:50 PM EDT 10 mg Given 04/09/2022 1:10 PM EDT 20 mg labetaloL (Normodyne) tablet 100 mg Given 04/07/2022 12:39 PM EDT 100 mg 100 mg, Oral, ONCE, 1 dose, On Thu04/07/22 at 1245, Routine labetaloL (Normodyne) tablet 100 mg Given 04/08/2022 8:10 AM EDT 100 mg 100 mg, Oral, 2 TIMES DAILY, First dose (after last reorder) on Thu04/07/22 at 2100, Until Discontinued, Routine Given 04/07/2022 8:58 PM EDT 100 mg labetaloL (Normodyne) tablet 100 mg Given 04/08/2022 12:14 PM EDT 100 mg 100 mg, Oral, ONCE, 1 dose, On Thu04/08/22 at 1215, Routine labetaloL (Normodyne) tablet 100 mg Given 04/09/2022 2:08 PM EDT 100 mg 100 mg, Oral, ONCE, 1 dose, On Thu04/09/22 at 1430, Routine labetaloL (Normodyne) tablet 200 mg Given 04/14/2022 8:25 AM EDT 200 mg 200 mg, Oral, 3 TIMES DAILY, First dose (after last modification) on Thu04/08/22 at 1500, Until Discontinued, HOLD for HR <50, Routine Given 04/13/2022 8:51 PM EDT 200 mg Given 04/13/2022 2:20 PM EDT 200 mg lisinopriL (Zestril) tablet 20 mg Given 04/14/2022 8:26 AM EDT 20 mg 20 mg, Oral, DAILY, First dose on Thu04/06/22 at 0900, Until Discontinued, Routine Given 04/13/2022 8:53 AM EDT 20 mg Given 04/12/2022 8:25 AM EDT 20 mg niCARdipine (Cardene) (0.2 Rate/Dose Change 04/08/2022 3:00 PM EDT 0 mg/hr 0 mL/hr mg/mL) in sodium chloride 200 mL infusion 0-15 mg/hr (0-75 mL/hr), Intravenous, CONTINUOUS, Starting on 04/05/22 at 1630, Until Thu04/09/22 at 1644, Call Head End Desizing Machine Operator to discontinue labetalol if blood pressure is not controlled. Call Head End Desizing Machine Operator if SBP is less than 110. Administer if inadequate blood pressure control in 30 minutes despite labetalol or if labetalol not ordered. Titrate to a systolic blood pressure (SBP) greater than 120 and less than 160 mmHg. Start nicardipine at 5 mg/hr, adjust rate by 2.5 mg/hr every 5 minutes to achieve SBP target. Dose not to exceed 15 mg/hr., Routine Rate/Dose Change 04/08/2022 12:00 PM EDT 5 mg/hr 25 mL/hr New Bag 04/08/2022 9:35 AM EDT 10 mg/hr 50 mL/hr niCARdipine (Cardene) 40 mg/200 mL (0.2 mg/mL) infusion 1 dose, Starting on Thu04/05/22 at 1523, Until Thu04/05/22 at 1536, Niya Del Cid: cabinet override polyethylene glycoL (Miralax) packet 17 g Given 04/14/2022 8:23 AM EDT 17 g 17 g, Oral, DAILY, First dose on Thu04/06/22 at 0900, Until Discontinued, Routine Given 04/12/2022 8:25 AM EDT 17 g Given 04/10/2022 8:10 AM EDT 17 g potassium bicarbonate (Effer-K) effervescent Given 05/2022 2:47 PM EDT 20 mEq tablet 20 mEq 20 mEq, Oral, EVERY 6 HOURS, 2 doses, First dose on Thu04/08/22 at 0930, Last dose on Thu04/08/22 at 1530, DO NOT GIVE UNDILUTED MEDICATION TO PATIENT. Dissolve tablet completely in 3-4 ounces of cold water or juice. May further dilute if adverse GI effects occur., Routine Given 04/08/2022 9:35 AM EDT 20 mEq potassium chloride ER (K-Dur/Klor-Con) tablet Given 6:15 AM EDT 40 mEq 40 mEq 40 mEq, Oral, EVERY 4 HOURS PRN, Starting on 04/06/22 at 0453, Until 04/06/22 at 0658, hypokalemia, Administer for serum potassium (mMol/L) of 3.6 - 3.8 See instructions for Potassium Protocol in online policies., Routine potassium chloride ER (K-Dur/Klor-Con) tablet Given 2:20 PM EDT 40 mEq 40 mEq 40 mEq, Oral, ONCE, 1 dose, On 04/06/22 at 1500, 20 mEq tablet may be dissolved in water for administration, Routine potassium chloride ER (K-Dur/Klor-Con) tablet Given 2:20 PM EDT 40 mEq 40 mEq 40 mEq, Oral, ONCE, 1 dose, On 04/07/22 at 1400, 20 mEq tablet may be dissolved in water for administration, Routine senna-docusate (Pericolace) 8.6-50 mg per Given 2021 8:24 AM EDT 2 tablets tablet 2 tablet 2 tablet, Oral, 2 TIMES DAILY, First dose on 04/05/22 at 2100, Until Discontinued, Administer to achieve 1 soft bowel movement daily without straining , Routine Given 04/12/2022 8:38 PM EDT 2 tablets Given 04/12/2022 8:25 AM EDT 2 tablets sodium chloride 0.9 % (flush) (BD PosiFlush Given 04/13/2022 8:5 3 AM EDT 5 mLs Normal Saline 0.9) flush 5-20 mL 5-20 mL, Intravenous, EVERY 1 MIN PRN, Starting on 04/05/22 at 1534, Until 04/14/22 at 1605, flush, Flush pertains to all indwelling lines. Flush per protocol found in the job aid using the link provided on this medication record., Routine Given 04/12/2022 8:38 PM EDT 5 mLs Given 04/12/2022 8:25 AM EDT 5 mLs sodium chloride 0.9% infusion New Bag 04/06/2022 1:08 AM EDT 1,000 mLs 100 mL/hr 1,000 mL, at 100 mL/hr, Intravenous, CONTINUOUS, Starting on 04/05/22 at 1630, Until 04/06/22 at 1629 New Bag 04/05/2022 3:48 PM EDT 1,000 mLs 100 mL/hr spironolactone (Aldactone) tablet 25 mg Given 04/14/2022 8:23 AM EDT 25 mg 25 mg, Oral, DAILY, First dose on 04/13/22 at 1615, Until Discontinued, DO NOT SPLIT, CRUSH OR OPEN, Routine Given 04/13/2022 4:12 PM EDT 25 mg tamsulosin (Flomax) capsule 0.8 mg Given 04/14/2022 8:24 AM EDT 0.8 mg 0.8 mg, Oral, DAILY, First dose on 04/07/22 at 1115, Until Discontinued, DO NOT CRUSH OR OPEN, Routine Given 04/13/2022 8:53 AM EDT 0.8 mg Given 04/12/2022 8:25 AM EDT 0.8 mg documented in this encounter Active and Recently Administered Medications Times are shown in EDT. Scheduled Medication Order 04/12/2022 04/13/2022 04/14/2022 amLODIPine (Norvasc) tablet 10 mg 0825 (Given - Provid er: Linette Parker RN) 0852 (Given - Provider: Linette Parker, KATTY) 0826 ( Given - Provider: Sari Barrios RN) 10 mg, Oral, DAILY, First dose on 06/21 at 1900, Until Discontinued, Routine chlorthalidone (Hygroten) tablet 25 mg 0825 (Given - P rovider: Linette Parker, KATTY) 0853 (Given - Provider: Linette Parker, KATTY) 0824 ( Given - Provider: Sari Barrios RN) 25 mg, Oral, DAILY, First dose on Marzena 07/22 at 1630, Until Discontinued, Routine heparin (porcine) (5,000 units/1 mL) subcutaneous inje ction 5,000 Units 0627 (Given - Provider: Prince Kevin Baker RN)1419 (Given - Provider: Linette Parker RN)2108 (Given - Provider: Prince Kevin Baker, KATTY) 06 (Given - Provider: Prince Kevin Baker RN)1419 (Given - Provider: Linette Parker RN)2050 (Given - Provider: Yennifer Finney, RN) 0618 (Given - Provider: Yennifer Finney, RN)1400 (Due) 5,000 Units, Subcutaneous, EVERY 8 HOURS SCHEDULED, First dose on Thu04/07/22 at 1400, Until Discontinued, Routine labetaloL (Normodyne) tablet 200 mg 0825 (Given - Prov ider: Linette Parker RN)1418 (Given - Provider: Linette Parker RN)2037 (Given - Provider: Prince Kevin Baker RN) 0853 (Given - Provider: Linette waterman RN)1419 (Given - Provider: Linette Parker, KATTY)2050 (Given - Provider: Yennifer Finney, KATTY) 0825 (Given - Provider: Sari Barrios, KATTY) 200 mg, Oral, 3 TIMES DAILY, First dose (after last modification) on Thu04/08/22 at 1500, Until Discontinued, HOLD for HR <50, Routine lisinopriL (Zestril) tablet 20 mg 08 (Given - Provid er: Linette Parker RN) 0853 (Given - Provider: Linette Parker, KATTY) 0826 ( Given - Provider: Sari Barrios, KATTY) 20 mg, Oral, DAILY, First dose on 03/21 at 0900, Until Discontinued, Routine polyethylene glycoL (Miralax) packet 17 g 08 (Given - Provider: Linette Parker RN) 0853 (Not Given - Provider: Linette greene RN - Reason: Patient/family refused) 0823 (Given - Provider: Sari Barrios, KATTY) 17 g, Oral, DAILY, First dose on 04/06 at 0900, Until Discontinued, Routine senna-docusate (Pericolace) 8.6-50 mg per tablet 2 tab let 824 (Given - Provider: Linette Parker RN)2037 (Given - Provider: Prince Kevin Baker RN) 0853 (Not Given - Provider: Linette Parker RN - Reason: Patient/family refused)2100 (Not Given - Provider: Yennifer Finney RN - Reason: Patient/family refused) 0824 (Given - Provider: Sari Barrios, RN) 2 tablet, Oral, 2 TIMES DAILY, First dos e on 04/05/22 at 2100, Until Discontinued, Administer to achieve 1 soft bowel movement daily without straining , Routine spironolactone (Aldactone) tablet 25 mg 1612 (Given - Provider: Linette Parker, KATTY) 0823 (Given - Provider: Sari Barrios, RN) 25 mg, Oral, DAILY, First dose on Sun at 1615, Until Discontinued, DO NOT SPLIT, CRUSH OR OPEN, Routine tamsulosin (Flomax) capsule 0.8 mg 0825 (Given - Provi gisela: Linette Parker RN) 0853 (Given - Provider: Linette Parker RN) 0824 ( Given - Provider: Sari Barrios, KATTY) 0.8 mg, Oral, DAILY, First dose on Mon at 1115, Until Discontinued, DO NOT CRUSH OR OPEN, Routine PRN Medication Order 04/12/2022 04/13/2022 04/14/2022 acetaminophen (Tylenol) (32.02 mg/mL) oral liquid 975 mg(Linked Group 1) 0250 (See Alternative - Provider: Prince Kevin Baker RN)185 (See Alternative - Provider: Linette Parker RN) 975 mg, Per G Tube, EVERY 6 HOURS PRN, S tarting on 04/05/22 at 1534, Until 04/14/22 at 1605, Pain, Fever, pain or temperature greater than 100 degrees F (measured by mouth), Maximum dose of acetami nophen is 4000 mg from all sources in 24 hours. When ordered for pain, acetaminophen should be given even when other ordered pain medications are indicated. , Routine acetaminophen (Tylenol) suppository 975 mg(Linked Grou p 1) 0250 (See Alternative - Provider: Prince Kevin Baker RN)185 (See Alternative - Provider: Linette Parker, KATTY) 975 mg, Rectal, EVERY 6 HOURS PRN, Start ing on 04/05/22 at 1534, Until Thu04/14/22 at 1605, Pain, Fever, pain or temperature greater than 100 degrees F (measured by mouth), Maximum dose of acetaminoph en is 4000 mg from all sources in 24 ramon rs. When ordered for pain, acetaminophen should be given even when other ordered pain medications are indicated. , Routine acetaminophen (Tylenol) tablet 975 mg(Linked Group 1) 0250 (Given - Provider: Prince Kevin Baker RN)1856 (Given - Provider: Linette Parker, KATTY) 975 mg, Oral, EVERY 6 HOURS PRN, Startin g on 04/05/22 at 1534, Until Thu04/14/22 at 1605, Pain, Fever, pain or temperature greater than 100 degrees F (measured by mouth), Maximum dose of acetaminophen is 4000 mg from all sources in 24 hours . When ordered for pain, acetaminophen should be given even when other ordered pain medications are indicated. , Routine bisacodyL (Dulcolax) suppository 10 mg 10 mg, Rectal, DAILY PRN, Starting on Sa t 04/05/22 at 1534, Until Thu04/14/22 at 1605, Constipation, Administer if needed per patient's routine or if no bowel movement within 48 hours to achieve: (1) One bowel movement at least every 48 hours, AND (2) Without straining. If multiple PRN bowel medications ordered, start with magnesium hydroxide, then bisacodyL. Multiple medications may be given concomitantly for constipation. , Routine hydrALAZINE (Apresoline) (20 mg/mL) injection 10 mg 10 mg, Intravenous, EVERY 4 HOURS PRN, S tarting on 04/12/22 at 1319, Until Thu04/14/22 at 1605, High Blood Pressure, SBP >180 labetaloL (Normodyne) (5 mg/mL) injection solution 10-20 mg 10-20 mg, Intravenous, EVERY 15 MIN PRN, Starting on 04/05/22 at 1534, Until Thu04/14/22 at 1605, High Blood Pressure, - Administer for systolic blood pressure (SBP) sustained greater than 180 mmHg. - Administer 10 mg over 2 minutes. May re peat every 15 minutes if SBP remains above goal. - If inadequate effect with 10 mg dose then increase dose to 20 mg for subsequent dosing every 15 minutes. - Dose not to exceed 300 mg per day. Hold i f pulse is less than 50 beats per minute. If Labetalol does not satisfactorily control BP within 30 minutes, consider enalaprilat or niCARdipine., Routine sodium chloride 0.9 % (flush) (BD PosiFlush Normal Hugo ine 0.9) flush 5-20 mL 0825 (Given - Provider: Linette Parker, RN)2038 (Given - Provider: Prince Kevin Baker, KATTY) 0853 (Given - Provider: Linette Parker, RN) 5-20 mL, Intravenous, EVERY 1 MIN PRN, S tarting on 04/05/22 at 1534, Until 04/14/22 at 1605, flush, Flush pertains to all indwelling lines. Flush per protocol found in the job aid using the link provided on this medication record., Routine Linked Groups Order Group 1: acetaminophen (Tylenol) tablet 975 mgJump to med 975 mg, Oral, EVERY 6 HOURS PRN, Startin g on 04/05/22 at 1534, Until Thu04/14/22 at 1605, Pain, Fever, pain or temperature greater than 100 degrees F (measured by mouth)
Maximum dose of aceta minophen is 4000 mg from all sources in 24 hours. When ordered for pain, acetaminophen should be given even when other ordered pain medications are indicated.
Routine Or acetaminophen (Tylenol) (32.02 mg/mL) oral liquid 975 mgJump to med 975 mg, Per G Tube, EVERY 6 HOURS PRN, S tarting on 04/05/22 at 1534, Until Thu04/14/22 at 1605, Pain, Fever, pain or temperature greater than 100 degrees F (measured by mouth)
Maximum dose of acetaminophen is 4000 [facility] hours. When ordered for pain, acetaminophen should be given even when other ordered pain medications are indicated.
Routine Or acetaminophen (Tylenol) suppository 975 mgJump to med 975 mg, Rectal, EVERY 6 HOURS PRN, Start ing on 04/05/22 at 1534, Until 04/14/22 at 1605, Pain, Fever, pain or temperature greater than 100 degrees F (measured by mouth)
Maximum dose of anat taminophen is 4000 mg from all sources i n 24 hours. When ordered for pain, acetaminophen should be given even when other ordered pain medications are indicated.
Routine documented in this encounter Care Teams [employer] Specialist Relationship Specialty Start Date End Date None PCP - General 09/18/16 None documented as of this encounter
--- OUTSIDE RECORDS SUMMARY | 2022-06-06 00:35 | XMS_ITS | Clinical Summary ---
:1965 Author Organization [facility] [place] [address] Care Team Providers Name Role Phone None Primary Care Provider Unavailable Allergies No known active allergies Medications Medication Sig Dispensed Refills Start Date End Date Status amLODIPine (Norvasc) 10 Take 1 tablet by 90 tablet 3 2 Active mg Tablet mouth daily. tamsulosin (Flomax) 0.4 Take 2 capsules 90 tablet 3 04/15/2022 Active mg Capsule by mouth daily. atorvastatin (Lipitor) Take 1 tablet by 0 04/14/2022 Active 20 mg Tablet mouth daily. labetaloL (Normodyne) Take 300 mg by 0 04/22/2022 Active 100 mg Tablet mouth. acetaminophen (Tylenol) Take 650 mg by 0 04/22/2022 Active 325 mg Tablet mouth. Active Problems Problem Noted Date Troponinemia likely demand ischemia 04/09/2022 multifocal small foci of scattered infarction in setti ng of PRES with 04/07/2022 hypertensive emergency Posterior reversible encephalopathy syndrome (PRES) Hypertensive emergency 04/07/2022 MARY (acute kidney injury) 04/07/2022 bilat thalamic hemorrhages etiology PRES with hyperten sive emergency 04/05/2022 Rib fracture 09/03/2016 Encounters Date Type Specialty Care Team Description 05/14/2022 Office Visit Ophthalmology Emmanuel Mckay r etinopathy of both eyes (Primary Dx); MD Krista Hypertensive emergency 04/16/2022 Telephone Neurology Luther Purdy MD 04/08/2022 Ophth Exam Ophthalmology Adan Garza MD 04/05/2022 - Hospital Jak Bolivar, Nontraumatic intracerebral hemorrhage, unspecified cerebral location, unspecified laterality; 04/14/2022 Encounter MD Nontraumatic multiple localized intracer ebral hemorrhages, unspecified laterality; Rajwinder, Posterior rever sible encephalopathy syndrome (PRES); Luther Elliott MD Troponinemia likely demand ischemia; Devora, Hypertensive em ergency; Aleja Bernal MD 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, unspecified laterality 04/05/2022 Hospital Emergency Medicine Jak Bolivar, Encounter MD 04/05/2022 Ancillary Radiology Aucrichards, Procedure Luther Elliott MD from Last 3 Months Immunizations Name Administration Dates Next Due Influenza PF, Split 09/04/2016 Family History Medical History Relation Comments Aneurysm Father Aneurysm Mother Relation Status Comments Father Maternal Grandfather Maternal Grandmother Mother Paternal Grandfather Paternal Grandmother Social History Tobacco Use Types Packs/Day Years Used Date Never Smoker Smokeless Tobacco: Current User Chew Alcohol Use Standard Drinks/Week Comments Yes 12 (1 standard drink = 0.6 oz pure alcoh ol) Sex Assigned at Date Recorded Not on file Last Filed Vital Signs Vital Sign Reading [...] Mass Index 35.28 04/13/2022 5:47 AM EDT Plan of Treatment Upcoming Encounters Date Type Specialty Care Team Description 06/11/2022 Laboratory Appointment Lab 06/11/2022 Office Visit Nephrology Mustapha Anderson MD [facility] [address] [facility] [place], [place] [address] (Wo rk) 07/01/2022 Office Visit Neurology Devendra Mayes, [employer] [facility] [address] [place] [address] (Wo rk) Health Maintenance Due Date Last Done Comments Covid-19 Vaccine (#1) 1968 HIV screen 1981 Hepatitis C Screening 1981 Tdap adult 1982 Tetanus vaccine 1982 Colonoscopy 2008 Zoster vaccine (1 of 2) 2013 Advance Directive 2018 Influenza (Flu) vaccine (1 of 1 - 05/01/2022 09/04/2016 Influenza standard series) Diabetes Screening (HgbA1C or 04/14/2025 04/14/2022, 2021, Glucose) 04/12/2022, Additional history exists Procedures Procedure Name Priority Date/Time Associated Diagnosis Comme nts OCT RETINA - OU - BOTH Routine 05/14/2022 10:10 Hypertensive R esults for this EYES AM EDT emergency procedure are in Hypertensive the results retinopathy of both section. eyes LAB SCAN 04/25/2022 12:00 Results for this AM EDT procedure are i n the results section. DIFFERENTIAL, Routine 04/14/2022 12:04 Results fo r this AUTOMATED PM EDT procedure are i n the results section. HEMOGRAM Routine 04/14/2022 12:04 Results for this PM EDT procedure are i n the results section. BASIC METABOLIC PANEL Routine 04/14/2022 12:04 Re sults for this (NON-FASTING) PM EDT procedure are in the results section. HC CBC,PLT & AUTO [...] i n the results section. HEMOGRAM Routine 04/13/2022 6:08 Results for this AM EDT procedure are i n the results section. BASIC METABOLIC PANEL Routine 04/13/2022 6:08 Res ults for this (NON-FASTING) AM EDT procedure are in the results section. HC CBC,PLT & AUTO [...] i n the results section. HEMOGRAM Routine 04/12/2022 4:39 Results for this AM EDT procedure are i n the results section. BASIC METABOLIC PANEL Routine 04/12/2022 4:39 Res ults for this (NON-FASTING) AM EDT procedure are in the results section. HC CBC,PLT & AUTO [...] procedure are i n the results section. U24 HRS AND VOLUME Routine 04/11/2022 11:45 Resul ts for this AM EDT procedure are i n the results section. HC MICROALBUMIN, URINE Routine 04/11/2022 11:45 R esults for this AM EDT procedure are i n the results section. HC PROTEIN, Routine 04/11/2022 11:45 Results for this QUANTITATIVE, URINE AM EDT procedur e are in the results section. LIPID PANEL (REFLEX Routine [...] procedure are in the results section. HC CBC,PLT & AUTO [...] procedure are i n the results section. LAVENDER TUBE HOLD Routine 04/10/2022 9:39 Result s for this AM EDT procedure are i n the results section. HC IRON BINDING Routine 04/10/2022 9:39 Results f or this CAPACITY AM EDT procedure are i n the results section. HC PARATHYROID Routine 04/10/2022 9:39 Results fo r this HORMONE(PTH INTACT AM EDT procedure are in the results section. HC URIC ACID, SERUM Routine 04/10/2022 9:39 Resul ts for this AM EDT procedure are i n the results section. EKG 12-LEAD Routine 04/10/2022 9:35 Troponinemia likely Resul ts for this AM EDT demand ischemia procedure ar e in the results section. DIFFERENTIAL, Routine 04/10/2022 4:35 Results for this AUTOMATED AM EDT procedure are i n the results section. HEMOGRAM Routine 04/10/2022 4:35 Results for this AM EDT procedure are i n the results section. HC TROPONIN T Routine 04/10/2022 4:35 Results for this AM EDT procedure are i n the results section. HC PCH RENIN, PLASMA Routine 04/10/2022 4:35 Resu lts for this AM EDT procedure are i n the results section. BASIC METABOLIC PANEL Routine 04/10/2022 4:35 Res ults for this (NON-FASTING) AM EDT procedure are in the results section. HC CBC,PLT & AUTO DIFF Routine 04/10/2022 4:35 AM EDT HC PHOSPHORUS, SERUM Routine 04/10/2022 4:35 Resu [...] the results section. HC TROPONIN T Routine 04/09/2022 12:50 Results fo r this AM EDT procedure are i n the results section. BASIC METABOLIC PANEL Routine 04/09/2022 12:50 Re sults for this (NON-FASTING) AM EDT procedure are in the results section. HC CBC,PLT & AUTO DIFF Routine 04/09/2022 12:50 AM EDT HC PHOSPHORUS, SERUM Routine 04/09/2022 12:50 Res ults for this AM EDT procedure are i n the results section. HC MAGNESIUM, SERUM Routine 04/09/2022 12:50 Resu lts for this AM EDT procedure are i n the results section. SCAN DOC: TELEMETRY 04/08/2022 7:01 STRIPS PM EDT SCAN DOC: TELEMETRY 04/08/2022 7:01 STRIPS PM EDT DIFFERENTIAL, Routine 04/08/2022 1:20 Results for this AUTOMATED AM EDT procedure are i n the results section. HEMOGRAM Routine 04/08/2022 1:20 Results for this AM EDT procedure are i n the results section. BASIC METABOLIC PANEL Routine 04/08/2022 1:20 Res ults for this (NON-FASTING) AM EDT procedure are in the results section. HC CBC,PLT & AUTO DIFF Routine 04/08/2022 1:20 AM EDT HC PHOSPHORUS, SERUM Routine 04/08/2022 1:20 Resu lts for this AM EDT procedure are i n the results section. HC MAGNESIUM, SERUM Routine 04/08/2022 1:20 Resul ts for this AM EDT procedure are i n the results section. ECHOCARDIOGRAM Routine 04/07/2022 2:38 Nontraumatic Results fo r this COMPLETE PM EDT intracerebral procedure are in hemorrhage, the results unspecified cerebral section . location, unspecified laterality RENAL DUPLEX COMPLETE Routine 04/07/2022 1:16 Nontraumatic mul tiple Results for this PM EDT localized procedure are i n intracerebral the results hemorrhages, section. unspecified laterality HEMOGLOBIN A1C Routine 04/07/2022 4:30 Results fo r this AM EDT procedure are i n the results section. DIFFERENTIAL, Routine 04/07/2022 4:30 Results for this AUTOMATED AM EDT procedure are i n the results section. HEMOGRAM Routine 04/07/2022 4:30 Results for this AM EDT procedure are i n the results section. BASIC METABOLIC PANEL Routine 04/07/2022 4:30 Res ults for this (NON-FASTING) AM EDT procedure are in the results section. HC CBC,PLT & AUTO DIFF Routine 04/07/2022 4:30 AM EDT HC PHOSPHORUS, SERUM Routine 04/07/2022 4:30 Resu lts for this AM EDT procedure are i n the results section. HC MAGNESIUM, SERUM Routine 04/07/2022 4:30 Resul ts for this AM EDT procedure are i n the results section. RAPID DRUG SCREEN W/O Routine 04/07/2022 1:18 Res ults for this CONFIRMATION, URINE AM EDT procedur e are in the results section. RAPID DRUG SCREEN, Routine 04/07/2022 1:18 Result s for this URINE (CAITLIN REQUEST) AM EDT procedur e are in the results section. SCAN DOC: TELEMETRY 04/06/2022 9:17 STRIPS PM EDT HC POTASSIUM Routine 04/06/2022 6:00 Results for this PM EDT procedure are i n the results section. HC FREE THYROXINE (T4) Routine 04/06/2022 2:35 Re sults for this PM EDT procedure are i n the results section. HC THYROID STIMULATING Routine 04/06/2022 2:35 Re sults for this HORMONE, SERUM PM EDT procedure are in the results section. HC PCH ALDOSTERONE, Routine [...] procedure are in the results section. HC CBC,PLT & AUTO DIFF Routine 04/06/2022 4:15 AM EDT HC PHOSPHORUS, SERUM Routine 04/06/2022 4:15 Resu lts for this AM EDT procedure are i n the results section. HC MAGNESIUM, SERUM Routine 04/06/2022 4:15 Resul ts for this AM EDT procedure are i n the results section. HC TROPONIN T STAT 04/06/2022 4:15 Results for this AM EDT procedure are i n the results section. URINE HOLD Routine 04/06/2022 2:13 Results for this AM EDT procedure are i n the results section. HC URINALYSIS ROUTINE Routine [...] procedure are i n the results section. HEPATIC FUNCTION PANEL Routine 04/05/2022 3:35 Re sults for this PM EDT procedure are i n the results section. HC THYROID STIMULATING Routine 04/05/2022 3:35 Re sults for this HORMONE, SERUM PM EDT procedure are in the results section. HC PARTIAL Routine 04/05/2022 3:35 Results for this THROMBOPLASTIN TIME PM EDT procedur e are in the results section. HC PROTHROMBIN TIME Routine 04/05/2022 3:35 Resul ts for this PM EDT procedure are i n the results section. FILM LIBRARY STORAGE Routine 04/05/2022 12:25 Res ults for this ONLY CT HEAD PM EDT procedure are i n the results section. from Last 3 Months Results OCT Retina - OU - Both Eyes (05/14/2022 10:10 AM EDT) Anatomical Region Laterality Modality Other Specimen (Source) Anatomical Location Collection Method / Collectio n Time Received Time / Laterality Volume Narrative 05/14/2022 10:10 AM EDT Right Eye Quality was good. Scan locations include d subfoveal. Progression has no prior data. Findings include abnormal fo veal contour, intraretinal fluid. Left Eye Quality was good. Scan locations include d subfoveal. Progression has no prior data. Findings include abnormal fo veal contour, intraretinal fluid. Krista Mckay MD OPHTHALMOLOGY SERVICES ORDE RABLES SCAN DOC: LAB (04/25/2022 12:00 AM EDT) Narrative 04/25/2022 12:00 AM EDT This result has an attachment that is no t available. Ordered by an unspecified provider. Scanning Provider MEDIA MGR SCAN EXT ORDR/RSLT (ABNORMAL) Hemogram (04/14/2022 12:04 PM EDT)Only the most recent of9 results within the time period is included. Analysis Performed At Patho logist Time Signature WBC 7.3 4.0 - 9.5 [facility] x[facility](3)/[facility] LABORATORY RBC 3.98 (L) 4.58 - [place] STEFAN[place] [address] [facility] x10(6)/[facility] LABORATORY Hemoglobin 12.0 (L) 13.7 - [facility] STEFANIE 16.5 g/dL [facility] LABORATORY Hematocrit 35.1 (L) 40.5 - [facility] STEFANIE 48.5 % [facility] LABORATORY MCV 88.2 82.9 - [place] ST[place] 93.1 [facility] LABORATORY MCH 30.2 27.5 - [place] 32.1 pg [facility] LABORATORY MCHC 34.2 32.0 - [place] 35.7 g/dL [facility] LABORATORY Platelets 269 145 - 357 [facility] x10(3)/[facility] LABORATORY RDWSD 42.2 36.0 - [place] 45.0 [facility] LABORATORY RDWCV 12.9 11.4 - [facility] STEFANIE 13.8 % [facility] LABORATORY MPV 10.1 7.6 - 12.9 [place] [facility] LABORATORY nRBC % Auto 0.0 % [facility] LABORATORY nRBC Abs Auto 0.000 0.000 - [place] [address] [facility] x10(3)/[facility] LABORATORY Specimen Anatomical Collection Method Collection Time Receive d Time (Source) Location / / Volume Laterality Blood 04/14/2022 12:04 04/14/2022 PM EDT 12:13 PM EDT Resulting Agency Comment Spec In Lab Marc Norris MD HEMATOLOGY ORDERABLES Performing Organization Address City/State/ZIP Code Phon e Number [place] [id number] [facility] LABORATORY Drive Differential, Automated (04/14/2022 12:04 PM EDT)Only the most recent of9 resultswithin the time period is included. P athologist Signature Neutrophils % 73.5 % [facility] LABORATORY Neutr Abs (ANC) 5.37 1.70 - [facility] [address] [facility] x10(3)/[facility] LABORATORY Lymphocytes % 14.1 % [facility] LABORATORY Lymphocytes Abs 1.0 0.9 - 3.2 [facility] x10(3)/[facility] LABORATORY Monocytes % 8.1 % [facility] LABORATORY Monocyte Abs 0.6 0.3 - 0.9 [facility] x10(3)/[facility] LABORATORY Eosinophils % 3.3 % [facility] LABORATORY Eosinophils Abs 0.2 0.0 - 0.4 [facility] x10(3)/[facility] LABORATORY Basophils % 0.5 % [facility] LABORATORY Basophils Abs 0.0 0.0 - 0.1 [facility] x10(3)/[facility] LABORATORY Immature Gran % 0.50 % [facility] [...] [place] Gran Abs 0.04 0.00 - 0.04 x10(3)/[facility] LABORATORY Specimen Anatomical Collection Method Collection Time Receive d Time (Source) Location / / Volume Laterality Blood 04/14/2022 12:04 04/14/2022 PM EDT 12:13 PM EDT Resulting Agency Comment Spec In Lab Marc Norris MD HEMATOLOGY ORDERABLES Performing Organization Address City/[facility]/[place]IP [place] [address] Phosphorus (04/14/2022 12:04 PM EDT)Only the most recent of9 resultswithin the time period is included. athologist Signature Phosphorus 4.2 2.5 - 4.5 [facility] mg/dL [facility] LABORATORY Specimen Anatomical Collection Method Collection Time Receive d Time (Source) Location / / Volume Laterality Blood 04/14/2022 12:04 04/14/2022 PM EDT 12:13 PM EDT Resulting Agency Comment Spec In Lab Luther Purdy MD CHEMISTRY ORDERABLES Performing Organization Address City/State/ZIP Code Phon e Number [address] Magnesium (04/14/2022 12:04 PM EDT)Only the most recent of9 resultswithin the time period is included. [facility] Magnesium 0.91 0.69 - 1.07 [facility] mmol/L [facility] LABORATORY Specimen Anatomical Collection Method Collection Time Receive d Time (Source) Location / / Volume Laterality Blood 04/14/2022 12:04 04/14/2022 PM EDT 12:13 PM EDT Resulting Agency Comment Spec In Lab Luther Purdy MD CHEMISTRY ORDERABLES Performing Organization Address City/[facility]/ZIP Code Phon e Number [address] (ABNORMAL) Basic Metabolic Panel (non-fasting) (04/14/2022 12:04 PM EDT)Only the most recent of9 resultswithin the time period is included. athologist Signature Glucose Lvl 113 65 - 199 [facility] mg[facility]dL [facility] LABORATORY Comment: Diabetes: >=200 mg/dL plus symp toms BUN 29 (H) 10 - 20 mg/dL [facility] LABORATORY Creatinine 2.11 (H) 0.80 - 1.50 mg/dL [facility] LABORATORY Sodium 134 (L) 135 - 145 mmol/L [facility] LABORATORY Potassium 4.8 3.5 - 5.0 mmol/L [facility] LABORATORY Comment: Please note: ??Patients with [...] Anion Gap 10 5 - 15 mmol/L [facility] LABORATORY Calcium 9.6 8.5 - 10.5 mg/dL [facility] LABORATORY Estimated GFR 36 (L) >=60 [...] Organization Address City/State/[place] [address] U24 Hrs and Volume (04/11/2022 11:45 AM EDT) P athologist Signature Hours 24 hour(s) [facility] LABORATORY Urine TV (ml) 1,750 mL [facility] LABORATORY Specimen Anatomical Collection Method Collection Time Receive d Time (Source) Location / / Volume Laterality Urine 04/11/2022 11:45 04/11/2022 3:20 AM EDT PM EDT Resulting Agency Comment Spec In Lab Isaac Shell DO CHEMISTRY ORDERABLES Performing Organization Address City/[facility]/ZIP Code Phon e Number [address] (ABNORMAL) Protein/Creatinine Ratio, urine (04/11/2022 11:45 AM EDT) athologist Signature U Creatinine 83 mg/dL [facility] LABORATORY U Protein Ran 18 (H) 0 - 12 [facility] mg/dL [facility] LABORATORY Prot/Cre Ratio 0.2 ratio [facility] LABORATORY Specimen Anatomical Collection Method Collection Time Receive d Time (Source) Location / / Volume Laterality Urine 04/11/2022 11:45 04/11/2022 3:20 AM EDT PM EDT Resulting Agency Comment Spec In Lab Luther Purdy MD URINE ORDERABLES Performing Organization Address City/[facility]/[place] [address] (ABNORMAL) Urine Albumin, 24 Hour (04/11/2022 11:45 AM EDT) athologist Signature U Albumin/24h 103 (H) 0 - 29 [facility] mg/24hr [facility] LABORATORY Comment: Reference Range: <30 mg/24h: Normal [...] Purdy MD URINE ORDERABLES Performing Organization Address City/[facility]/ZIP Code Phon e Number [address] Cortisol, urine, 24 hour (04/11/2022 11:45 AM EDT) athologist Signature U24 Cortisol 13 3.5 - 45 [facility]/24hr [facility] LABORATORY Comment: Test Performed by: [facility] [address] [place], [place] [address] Surveillance Systems Engineer: Ruben Prasad M.D. Ph. D.; CLIA# [id number] Specimen Anatomical Collection Method Collection Time Receive d Time (Source) Location / / Volume Laterality Urine Urine / Unknown 04/11/2022 11:45 04/14/20 22 8:47 AM EDT AM EDT Resulting Agency Comment Spec In Lab Adiel Daniel MD URINE ORDERABLES Performing Organization Address City/State/[place] [address] Lipid Panel (Reflex Direct LDL) (04/11/2022 1:20 AM EDT) athologist Signature Chol, Total 120 mg/dL [facility] LABORATORY Comment: Lower Risk: <200 mg/dL Average Risk: 200-239 mg/dL Higher Risk: >fc=012 mg/dL Triglycerides 117 mg/dL [facility] LABORATORY Comment: Average Risk/Lower Risk: <150 mg/dL Borderline High Risk: 150-199 mg/dL High Risk: 200-499 mg/dL Very High Risk: >xh=822 mg/dL HDL 32 mg/dL [facility] LABORATORY Comment: Males: ?? Higher Risk: <40 mg/dL Females: ?? Higher Risk: <50 mg/dL LDL Cholesterol 65 mg/dL [facility] LABORATORY Comment: Lowest Risk: <100 mg/dL Lower Risk: 100-129 mg/dL Borderline High Risk: 130-159 mg/dL High Risk: 160-189 mg/dL Very High Risk: >te=627 mg/dL Chol/HDL Ratio 3.8 ratio [facility] LABORATORY Lipid Interpretation See Note [facility] LABORATORY Comment: Lipid management should be guided by a p atient? s ASCVD risk, goals and preferences. ACC/AHA Guidelines recommend high intens ity statin if clinical ASCVD or LDL greater than or equal to 190 mg/dL. http://Lanica.com/UXP-RWU-Avjbsqgme Adults aged 40-75 with LDL 70-189 mg/dL should have their 10 year ASCVD risk estimated with the ACC/AHA ASCVD risk es timator http://tools.acc.org/LFDHX-Sgtw-Bbczmxpu r/ Statin should be discussed if risk [...] Organization Address City/State/[place] [address] (ABNORMAL) Troponin (04/10/2022 3:54 PM EDT)Only the most recent of8 results within the time period is included. athologist Signature Troponin-T 0.26 (H) 0.00 - [facility] 0.00 ng/mL [facility] LABORATORY Comment: The 99th percentile for Troponin T is le ss than 0.01 ng/mL, any detectable cTnT concentration using this assay should be considered elevated. According to the third universal definit ion of myocardial infarction the following criteria with a clinical prese ntation consistent with acute myocardial ischemia meets the diagnosis for a myocardial infarction (NH). Detection of a rise and/or fall of [...] additional sample may be indicated. Reference: Third Girard Definition of Myocardial Infarction. Journal of the [employer] 2012;60:1581-98 Specimen Anatomical Collection Method Collection Time Receive d Time (Source) Location / / Volume Laterality Blood 04/10/2022 3:54 PM 2 4:01 EDT PM EDT Resulting Agency Comment Spec In Lab Luther Purdy MD CHEMISTRY ORDERABLES Performing Organization Address City/[facility]/[place] [address] PTH (04/10/2022 9:39 AM EDT) P athologist Signature PTH 47 15 - 65 [facility] pg/mL [facility] Specimen Anatomical Collection Method Collection Time Receive d Time (Source) Location / / Volume Laterality Blood 04/10/2022 9:39 AM 2 9:51 EDT AM EDT Resulting Agency Comment Spec In Lab Luther Purdy MD CHEMISTRY ORDERABLES Performing Organization Address City/[facility]/ZIP [facility] [place] [address] Lavender Tube HOLD (04/10/2022 9:39 AM EDT) Patholo gist Method Time Signature Lavender Hold Sample in [facility] lab. [facility] LABORATORY Specimen Anatomical Collection Method Collection Time Receive d Time (Source) Location / / Volume Laterality Blood Venous Draw / 04/10/2022 9:39 AM 04/10/20 22 9:52 Unknown EDT AM EDT Marc Norris MD HEMATOLOGY ORDERABLES Performing Organization Address City/[facility]/ZIP Code Phon e Number [address] (ABNORMAL) Iron and TIBC (04/10/2022 9:39 AM EDT) Analysis Performed At Patho logist Time Signature Iron 76 45 - 160 [facility] mcg/dL [facility] LABORATORY TIBC 177 (L) 250 - 450 [facility] mcg/dL [facility] LABORATORY Iron Saturation 43 20 - 50 % [facility] LABORATORY Specimen Anatomical Collection Method Collection Time Receive d Time (Source) Location / / Volume Laterality Blood 04/10/2022 9:39 AM 2 9:51 EDT AM EDT Resulting Agency Comment Spec In Lab Luther Purdy MD CHEMISTRY ORDERABLES Performing Organization Address City/[facility]/[place] [address] Uric acid (04/10/2022 9:39 AM EDT) P athologist Signature Uric Acid 6.0 3.5 - 8.5 [facility]dL [facility] LABORATORY Specimen Anatomical Collection Method Collection Time Receive d Time (Source) Location / / Volume Laterality Blood 04/10/2022 9:39 AM 2 9:51 EDT AM EDT Resulting Agency Comment Spec In Lab Luther Purdy MD CHEMISTRY ORDERABLES Performing Organization Address City/[facility]/ZIP [facility] [place] [address] EKG 12 Lead (04/10/2022 9:35 AM EDT)Only the most recent of3 resultswithin the time period is included. Component Value Ref Range Test Analysis Performed Pathologis t Method Time At Signature Ventricular rate 62 BPM MUSE SYSTEM Atrial Rate 62 BPM MUSE SYSTEM P-R Interval 176 ms MUSE SYSTEM QRS Duration 110 ms MUSE SYSTEM Q-T Interval 450 ms MUSE SYSTEM QTC Calculated 456 ms MUSE SYSTEM (Bezet) Calculated P [place] 33 degrees MUSE SYSTEM Calculated R [place] -20 degrees MUSE SYSTEM Calculated T [place] 148 degrees MUSE SYSTEM INTERPRETATION Normal sinus rhythm MUSE SYSTEM Left ventricular hypertrophy with repolarization abnormality Abnormal ECG When compared with ECG of 09-APR-2022 10:15, ST now depressed in Anterior leads QT has shortened Confirmed by MD John, [place] ([id number]) on 04/10/2022 12:01:32 PM Specimen Anatomical Collection Method Collection Time Receive d Time (Source) Location / / Volume Laterality 04/10/2022 9:35 AM 2 EDT 12:01 PM EDT Luther Purdy MD ECG ORDERABLES Performing Organization Address City/[facility] Phon e Number MUSE SYSTEM Renin Activity (04/10/2022 4:35 AM EDT) athologist Signature Renin Activity 0.8 ng/ml/hr [facility] LABORATORY Comment: REFERENCE VALUE------ (Peripheral vein specimen) Na-deplete, upright: ??Mean: 5.9 ??Range: 2.9-10.8 Na-replete, upright: ??Mean: 1.0 ??Range: < or =0.6-3.0 ADDITIONAL INFORMATIO N Testing performed by Liquid Chromatograp hy-Tandem Mass Spectrometry (LC-MS/MS). This test was developed and its performa nce characteristics determined by [facility] in a manner co nsistent with CLIA requirements. This test has not been cristy ared or approved by the U.S. Food and Drug Administration. Test Performed by: [facility] [address] [place] [address] 93 Surveillance Systems Engineer: Ruben Prasad M.D. Ph. D.; CLIA# [id number] Specimen Anatomical Collection Method Collection Time Receive d Time (Source) Location / / Volume Laterality Blood 04/10/2022 4:35 AM 9:39 EDT AM EDT Resulting Agency Comment Spec In Lab Luther Purdy MD CHEMISTRY ORDERABLES Performing Organization Address City/State/[place] [address] Urinalysis Microscopic Exam (04/09/2022 10:00 AM EDT) P athologist Signature RBC UA 2 0 - 3 /HPF [facility] WBC UA 1 0 - 3 /HPF [facility] Hyaline Cast 1 0 - 2 /LPF [facility] LAB[facility] Specimen (Source) Anatomical Collection Method Collection Time Re ceived Time Location / / Volume Laterality Indwelling 04/09/2022 10:00 04/09/2022 Catheter Urine AM EDT 10:23 AM EDT Resulting Agency Comment Spec In Lab Marc Norris MD URINE ORDERABLES Performing Organization Address City/State/ZIP Code Phon e Number [address] (ABNORMAL) Urinalysis with reflex Culture (04/09/2022 10:00 AM EDT) Patholo gist Method Time Signature Glucose UA Negative Negative [facility] mg/dL [facility] Protein UA Trace (A) Negative [facility] mg/dL [facility] Bilirubin UA Negative Negative [facility] mg/dL [facility] Comment: Clinical correlation required for positi ve Urine Bilirubin results as false positive may occur with some drugs and d rug related products. If a false positive is suspected a serum total bili rubio should be considered if clinically indicated. Urobilinogen UA Normal Normal mg/dL [facility] pH UA 6.5 5.0 - 8.0 [facility] Blood UA Negative Negative mg/dL [facility] Ketones UA Negative Negative mg/dL [facility] Nitrite UA Negative Negative [facility] Leukocytes UA Negative Negative [facility] LABORATORY Appearance UA Clear Clear [facility] LABORATORY Spec [place] UA 1.011 1.005 - 1.030 [facility] LABORATORY Color UA Yellow Yellow [facility] Culture Reflexed No [facility] Specimen (Source) Anatomical Collection Method Collection Time Re ceived Time Location / / Volume Laterality Indwelling 04/09/2022 10:00 04/09/2022 Catheter Urine AM EDT 10:23 AM EDT Resulting Agency Comment Spec In Lab Luther Purdy MD URINE ORDERABLES Performing Organization Address City/State/ZIP Code Phon e Number [place] [id number] SCAN DOC: TELEMETRY STRIPS (04/08/2022 7:01 PM EDT)Only the most recent of3 resultswithin the time period is included. Narrative This result has an attachment that is no t available. Unknown MEDIA MGR SCAN EXT ORDR/RSLT ECHOCARDIOGRAM COMPLETE (04/07/2022 2:38 PM EDT) P athologist Signature EF 60 [facility] SYSTEM Anatomical Region Laterality Modality Cardiac Other Specimen (Source) Anatomical Collection Method Collection Time Re ceived Time Location / / Volume Laterality 04/07/2022 1:29 PM EDT Narrative 04/07/2022 3:13 PM EDT ? Echocardiogram Report Name: IAIN GO ?Study Date: 04/07/2022 01:29 PMBP: 129/90 mmHg ? Patient Location: [place] [address] A HR: 92 : 1965 ? Height: 180 cm ? Account: [id number] Age: 56 yrs ? Weight: 114 kg Gender: Male ?BSA: 2.3 m2 Ordering Physician: ALFRED Referring Physician: IAIN BARTON Performed By: Nael Caldwell RDCS Reason For Study: Intracerebral hemorrha ge History: HTN Exam Location: [facility]. Interpretation Summary The left ventricular size is [...] cardiac MRI if clinica lly appropriate. Procedure Complete-84369. Satisfactory quality. Th ere is normal sinus [...] ? SI(LVOT): 55.0 ml/m2 Doppler TR max victorino: 241.1 cm/sec RVSP(TR): 26.2 mmHg MV E max victorino: 66.1 cm/sec MV A max victorino: 97.9 cm/sec MV E/A: 0.67 MV dec time: 0.25 sec Lat Peak E' Victorino: 6.9 cm/sec E/ e' (lat): 9.6 Med Peak E' Victorino: 4.1 cm/sec E/e' (med): 16.0 E/e' Average: [...] different from the original. Echocardiogram Report Name: GOIAIN Study Date: 03/2022 01:29 PMBP: 129/90 mmHg Patient Location: [address] HR: 92 : 1965 Height: 180 cm Account: [id number] Age: 56 yrs Weight: 114 kg Gender: Male BSA: 2.3 m2 Ordering Physician: ALFRED Referring Physician: IAIN BARTON Performed By: Nael Caldwell RDCS Reason For Study: Intracerebral hemorrha ge History: HTN Exam Location: [facility]. Interpretation Summary The left ventricular size is [...] cardiac MRI if clinica lly appropriate. Procedure Complete-80588. Satisfactory quality. Th ere is normal sinus [...] ml SI(LVOT): 55.0 ml/m2 Doppler TR max victorino: 241.1 cm/sec RVSP(TR): 26.2 mmHg MV E max victorino: 66.1 cm/sec MV A max victorino: 97.9 cm/sec MV E/A: 0.67 MV dec time: 0.25 sec Lat Peak E' Victorino: 6.9 cm/sec E/ e' (lat): 9.6 Med Peak E' Victorino: 4.1 cm/sec E/e' (med): 16.0 E/e' Average: 12.8 I WMSI = 1.00 % Normal = 100 Segments Size X - Cannot 2 - 4 - 1-2 small Interpret 1 - Normal Hypokinetic 3 - Mary netic Dyskinetic 3-5 moderate 5 - 6-14 large Aneurysmal 15-16 diffuse Jak Bolivar MD ECHO ORDERABLES Duplex Study Renal Arteries, [facility] (04/07/2022 1:16 PM EDT) Component Value Ref Test Analysis Performed At [facility] Range Method Time Signature VB Text Department: Vascular Surgery Lab VASCUBASE Report Patient: [id number] (IAIN GO) CPT: 70514 Referring Physician: JAK BOLIVAR ?? Phone: Indications: [...] da tabase for comparison. Electronically Signed by: DICKSON CHAKRABORTY on 2022-04-07 09:31:22 AM VB Text End of Report VASCUBASE Report Specimen (Source) Anatomical Collection Method Collection Time Re ceived Time Location / / Volume Laterality 04/07/2022 1:16 PM EDT Jak Bolivar MD VASCULAR ORDERABLES Performing Organization Address City/State/ZIP Code Phon e Number VASCUBASE Hemoglobin A1c (04/07/2022 4:30 AM EDT) P athologist Signature Hemoglobin A1C 4.8 4.3 - 5.6 [facility] Comment: Reference Range: 4.3 - [...] Mellitus, Diabetes Care 2013; 36: Suppl. 1, S67-05 Est Avg Gluc 90 mg/dL [place] W[place] [facility] LABORATORY Comment: eAG equivalents for HbA1c percentages: HbA1c(%) ?eAG(mg/dL) 6.0 ?126 6.5 ?140 7.0 ?154 7.5 ?169 8.0 ?183 8.5 ?197 9.0 ?212 9.5 ?226 10.0 ? 240 Limitations: The eAG calculation has not been validated on women, individuals below 18 years old and above 70 years old, and individuals with hemoglobinopathies. Additional resources are available on [facility] ADA website. Armando COSTA, Roddy J, Stanley R, et al. ??Tr anslating the A1C assay into estimated average glucose values. ??Diabetes Care 2008:31(8):5775-5055. Specimen Anatomical Collection Method Collection Time Receive d Time (Source) Location / / Volume Laterality Blood Venous Draw / 04/07/2022 4:30 AM 04/08/20 8:50 Unknown EDT AM EDT Resulting Agency Comment Spec In Lab Marc Norris MD CHEMISTRY ORDERABLES Performing Organization Address City/State/[place]IP [place] [address] Rapid Drug Screen, Urine (CAITLIN Request) (04/07/2022 1:18 AM EDT) athologist Signature CAITLIN Conf No [facility] LABORATORY Comment: Collection date/time has been modified t o: 01:18:00. ??Previous collection date/time: 14:19:00 . Corrected from No [NA] on 04/07/22 1:36: 46 EDT by Orville Young. CAITLNI Requested See Comment [facility] Comment: Refer to Rapid Drug Screen w/o Confirmat ion, Urine for results. Collection date/time has been modified to: 2 01:18:00. ??Previous collection date/time: 14:19:00. Corrected from See Comment [NA] on 04/07 1:36:46 EDT by Orville Young. Specimen Anatomical Collection Method Collection Time Receive d Time (Source) Location / / Volume Laterality Urine 04/07/2022 1:18 AM 1:36 EDT AM EDT Resulting Agency Comment Spec In Lab Jak Bolivar MD URINE ORDERABLES Performing Organization Address City/State/ZIP [place] [address] Rapid Drug Screen w/o Confirmation, Urine (04/07/2022 1:18 AM EDT) [facility] Method Time Signature U Barbiturates None None [facility] Screen Detected Detected [facility] Comment: The barbiturate screen detects barbitura [...] U Methadone Metabolites None Detected None Detected [facility] LABORATORY Comment: The methadone metabolite screen detects EDDP (major methadone metabolite) at concentrations >100 ng/mL. A ? Presumptive Positive? result indicates that the screening result was positive but has not yet been confirmed by a highly-specific method. As with any screen, occasional false positive re sults from cross-reacting substances may occur. Not for Medico-Legal Purposes. U Opiate Screen None Detected None Detected [facility] LABORATORY Comment: The opiates screen detects opiates at co ncentrations >300 ng/mL. Please note that oxycodone, oxymorphone, fentanyl, tramadol, and other synthetic opioids are not detected by [facility] opiate screen. A ? Presumptive Positive? result indicates that the screening result was positive but has not yet been confirmed by a highly-specific method. As with any screen, occasional false positive re sults from cross-reacting substances may occur. Not for Medico-Legal Purposes. U Cannabinoid Screen None Detected None Detected Gabe LEAL [facility] Comment: The marijuana metabolites screen detects the THC metabolite (02-tez-8-carboxy-delta 9-THC) at concen trations >20 ng/mL. A [...] Fentanyl Screen None Detected None Detected Gabe LEAL [facility] Comment: The fentanyl screen detects fentanyl at concentrations >2 ng/mL. A ? Presumptive Positive? result indicates that the screening result was positive but has not yet been confirmed by a highly-specific method. As with any screen, occasional false positive re sults from cross-reacting substances may occur. Not for Medico-Legal Purposes. U Tricyclics Screen None Detected None Detected OCTAVIO ALLISON [facility] LAB[facility] Comment: The tricyclics screen detects tricyclic [...] Screen None Detected None Detected Gabe LEAL [facility] Comment: No adulteration or dilution of [...] EDT Resulting Agency Comment Spec In Lab Roel Amaya DO CHEMISTRY ORDERABLES Performing Organization Address City/[facility] Phon e Number [address] (ABNORMAL) Potassium (04/06/2022 6:00 PM EDT)Only the most recent of2 results within the time period is included. athologist Signature Potassium 3.1 (L) 3.5 - 5.0 [facility] mmol/L [facility] LABORATORY Comment: Please note: ??Patients with WBC [...] Bolivar MD CHEMISTRY ORDERABLES Performing Organization Address [facility] Phon e Number [address] Aldosterone (04/06/2022 2:35 PM EDT)Only the most recent of2 resultswithin the time period is included. athologist Signature Aldosterone <4.0 <=21 ng/dL [facility] Comment: ADDITIONAL INFORMATIO N Reference range for patients 11 years an d older is based on upright A.M. collection from subjects wi thout sodium restrictions. This test was developed and its performa nce characteristics determined by [facility] in a manner co nsistent with CLIA requirements. This test has not been cristy ared or approved by the U.S. Food and Drug Administration. Test Performed by: [facility] [address] [place], [place] [address] Surveillance Systems Engineer: Ruben Prasad M.D. Ph. D.; CLIA# [id number] Specimen Anatomical Collection Method Collection Time Receive d Time (Source) Location / / Volume Laterality Blood 04/06/2022 2:35 PM 2 9:37 EDT AM EDT Resulting Agency Comment Spec In Lab Jak Bolivar MD CHEMISTRY ORDERABLES Performing Organization Address City/[facility]/ZIP Code Phon e Number [address] TSH (04/06/2022 2:35 PM EDT)Only the most recent of2 resultswithin the time period is included. athologist Signature TSH 3.14 0.27 - 4.20 EvolverSTEFANIE mcIU/mL [facility] LAB[facility]AT[facility] Comment: Reference Interval (mcIU/mL): Females: ??First Trimester: 0.23-3.88 ??Second Trimester: 0.22-3.90 ??Third Trimester: 0.44-4.66 Specimen Anatomical Collection Method Collection Time Receive d Time (Source) Location / / Volume Laterality Blood 04/06/2022 2:35 PM 2 2:42 EDT PM EDT Resulting Agency Comment Spec In Lab Jak Bolivar MD CHEMISTRY ORDERABLES Performing Organization Address City/State/ZIP Code Phon e Number [address] T4, free (04/06/2022 2:35 PM EDT) athologist Signature Free T4 1.30 0.93 - 1.70 [place] ng/dL [facility] Comment: Reference Interval (ng/dL): Females: ??First Trimester: 0.97-1.68 ??Second Trimester: 0.77-1.51 ??Third Trimester: 0.77-1.49 Specimen Anatomical Collection Method Collection Time Receive d Time (Source) Location / / Volume Laterality Blood 04/06/2022 2:35 PM 2 2:42 EDT PM EDT Resulting Agency Comment Spec In Lab Jak Bolivar MD CHEMISTRY ORDERABLES Performing Organization Address City/State/ZIP Code Phon e Number [place] [id number] MRI Angiogram Head wo [...] who have questions please contact the health doggy daycare activities director that requested your imaging first. ? Electronically signed by: Bret Calvert MD, [facility] ([phone]), at 04/06/2022 12:05 PM Narrative 04/06/2022 12:05 [...] ho have questions please contact the health doggy daycare activities director that requested your imaging first. Electronically signed by: Bret Calvert MD, [facility] ([phone]), at 04/06/2022 12:05 PM Jammie Kulkarni APRN [...] who have questions please contact the health doggy daycare activities director that requested your imaging first. ? Electronically signed by: Bret Calvert MD, [facility] ([phone]), at 04/06/2022 12:03 PM Narrative 04/06/2022 12:03 [...] lesion is present. Leptomeninges are of normal annabelle earance. The orbits show no abnormality. Procedure [...] lesion is present. Leptomeninges are of normal annabelle earance. The orbits show no abnormality. 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 If you are a health care provider and have any questi ons regarding this report, please contact the number below. For patients w ho have questions please contact the health doggy daycare activities director that requested your imaging first. Jammie Kulkarni BAND TEACHER IMG MRI ORDERABLES (ABNORMAL) _Urinalysis with microscopic (04/06/2022 2:13 AM EDT) [facility] Method Time Signature Glucose UA Negative Negative [facility] mg/dL [facility]ORATORY Protein UA 100 (A) Negative [facility] mg/dL [facility] Bilirubin UA Negative Negative [facility] mg/dL [facility] Comment: Clinical correlation required for positi ve Urine Bilirubin results as false positive may occur with some drugs and d rug related products. If a false positive is suspected a serum total bili rubio should be considered if clinically indicated. Urobilinogen UA Normal Normal mg/dL [facility] pH UA 5.5 5.0 - 8.0 [facility] Blood UA Large (A) Negative mg/dL [facility] Ketones UA Trace (A) Negative mg/dL [facility] Nitrite UA Negative Negative [facility] Leukocytes UA Negative Negative mcL [facility] Appearance UA Cloudy (A) Clear [facility] Spec [place] UA 1.020 1.005 - 1.030 [facility] Color UA Dark Yellow Yellow [facility] LABOR[facility] RBC UA >100 (H) 0 - 3 /HPF [facility] WBC UA 0 0 - 3 /HPF [facility] Bacteria UA Rare (A) None /HPF [facility] LABOR[facility]ORY Comment: Interpret with caution, manual microscopic results are from an unspun specimen Hyaline Cast UA 4 (H) 0 - 2 /LPF [facility] Specimen Anatomical Collection Method Collection Time Receive d Time (Source) Location / / Volume Laterality Urine 04/06/2022 2:13 AM 2:20 EDT AM EDT Resulting Agency Comment Spec In Lab Jammie Kulkarni APRN URINE ORDERABLES Performing Organization Address City/State/[place] [address] Urine Hold (04/06/2022 2:13 AM EDT) P athologist Signature Urine Hold Sample in [facility] LABORATORY Specimen Anatomical Collection Method Collection Time Receive d Time (Source) Location / / Volume Laterality Urine Urine / Unknown 04/06/2022 2:13 AM 2021 2:23 EDT AM EDT Jammie Kulkarni APRN URINE ORDERABLES Performing Organization Address City/[facility]/ZIP Code Phon e Number [address] Gold Tube HOLD (04/05/2022 10:39 PM EDT) P athologist Signature Gold Hold Sample in [facility]. [facility]OR[facility]ORY Specimen Anatomical Collection Method Collection Time Receive d Time (Source) Location / / Volume Laterality Blood Venous Draw / 04/05/2022 10:39 04/05/2022 Unknown PM EDT 10:47 PM EDT Michelle RODRIGUEZ CHEMISTRY ORDERABLES Performing Organization Address City/[facility]/[place] [address] POCT Glucose (04/05/2022 8:52 PM EDT)Only the most recent of2 resultswithin the time period is included. P athologist Signature POC Glucose 144 65 - 199 [facility] mg/dL [facility]ATORY Comment: Supplemental ranges: <140 mg/dL before meals <180 mg/dL all other times of the day Specimen Anatomical Collection Method Collection Time Receive d Time (Source) Location / / Volume Laterality Blood 04/05/2022 8:52 PM 8:52 EDT PM EDT Jak Bolivar MD POINT OF CARE TEST ORDERABLE S Performing Organization Address City/State/[place] [address] Type and Screen Validity (04/05/2022 7:43 PM EDT) [facility] Method Time Signature T&S only valid [facility] LABORATORY Comment: This Type and Screen result is only valid at the [facility] Specimen Anatomical Collection Method Collection Time Receive d Time (Source) Location / / Volume Laterality Blood 04/05/2022 7:43 PM 2 7:45 EDT PM EDT Resulting Agency Comment Spec In Lab Jammie Kulkarni APRN BLOOD BANK ORDERABLES Performing Organization Address City/[facility]/ZIP Code Phon e Number [address] ABORH Recheck Status (04/05/2022 7:43 PM EDT) [facility] Method Time Signature ABORH Type Completed [facility] LABORATORY Specimen Anatomical Collection Method Collection Time Receive d Time (Source) Location / / Volume Laterality Blood 04/05/2022 7:43 PM 2 7:45 EDT PM EDT Resulting Agency Comment Spec In Lab Jammie Kulkarni APRN BLOOD BANK ORDERABLES Performing Organization Address City/[facility]/[place] [address] ABO/Rh Typing (04/05/2022 7:43 [...] Organization Address City/State/[place] [address] Antibody screen (04/05/2022 7:43 PM EDT) Patholo gist Method Time Signature Ab Screen Negative [place] Parnell [facility]ORATORY Expires at 04/08/2022 [place] [id number] on: [facility] LAB[facility]ATORY Specimen Anatomical Collection Method Collection Time Receive d Time (Source) Location / / Volume Laterality Blood 04/05/2022 7:43 PM 7:45 EDT PM EDT Resulting Agency Comment Spec In Lab Jammie M Shad PEREZ BLOOD BANK ORDERABLES Performing Organization Address City/State/ZIP Code Phon e Number [facility] [place] [address] Head wo Contrast [...] who have questions please contact the health doggy daycare activities director that requested your imaging first. ? Narrative 04/05/2022 6:55 PM EDT EXAMINATION: CT [...] most commonly related to artifact. No clear SHIPPING TEAM LEADER distri bution infarction is evident. The basilar [...] most commonly related to artifact. No clear SHIPPING TEAM LEADER distri bution infarction is evident. The basilar [...] ho have questions please contact the health doggy daycare activities director that requested your imaging first. Jammie Kulkarni APRN IMG CT ORDERABLES APTT (04/05/2022 3:35 PM EDT) athologist Signature [...] Organization Address City/State/[place] [address] (ABNORMAL) Prothrombin Time (04/05/2022 3:35 PM EDT) athologist Signature PT 13.2 (H) 9.4 - 12.5 [facility] LABORATORY INR 1.2 [facility] [...] Organization Address City/State/[place] [address] (ABNORMAL) Hepatic Function Panel (04/05/2022 3:35 PM EDT) P athologist Signature Total Protein 7.3 6.1 - 8.0 DYLON STEFANIE g/dL [facility] LABORATORY Albumin 4.1 3.2 - 5.2 DYLON STEFANIE g/dL [facility] LABORATORY AST 32 0 - 39 DYLON STEFANIE unit/L [facility] LABORATORY ALT 37 0 - 55 DYLON STEFANIE unit/L [facility] LABORATORY Alk Phos 65 40 - 130 DYLON STEFANIE unit/L [facility] LABORATORY Total 1.3 0.2 - 1.3 DYLON STEFANIE Bilirubin mg/dL [facility] LABORATORY Bili, Direct 0.6 (H) 0.0 - 0.3 DYLON STEFANIE mg/dL [facility] LABORATORY Specimen Anatomical Collection Method Collection Time Receive d Time (Source) Location / / Volume Laterality Blood 04/05/2022 3:35 PM 2 4:07 EDT PM EDT Resulting Agency Comment Spec In Lab Jammie Kulkarni APRN CHEMISTRY ORDERABLES Performing Organization Address City/[facility]/[place] [address] Film Library- Storage Only CT Head (04/05/2022 12:25 PM EDT) Specimen (Source) Anatomical Location Collection Method / Collectio n Time Received Time / Laterality Volume Narrative [facility] - 04/05/2022 12:25 PM EDT This exam is auto-finalizing. It's purpo se is for storage only. Luther Purdy MD IMG FILM LIBRARY ORDERABLES Performing Organization Address City/State/ZIP Code Phon e Number RAD RAD [place], [place] from Last 3 Months Insurance Payer Benefit Plan / Subscriber ID Effective Dates Phone Addre ss Type Group [employer] [place] [id number] 2016-Prese [id number] [address] INSURANCE C/O nt 5 [facility] [place] [address] [place] [id number] 2022-Presen [phone] [address] [place] [address] [employer] Workers Comp Employer [facility] [facility] [facility] (Home) [place] [address] Advance Directives Latest Code Status on File Code Status Date Activated Date Inactivated Comments Attempt Cardiopulmonary Resuscitation - 04/05/2022 1:24 PM 04/14/20 4:10 PM Inpatient Code Status decision made by: Two - Attending Decision Full Code 09/03/2016 11:16 PM 09/04/2016 7:49 PM Does patient have capacity to make decision: Yes Care Teams Perforating Machine Operator Relationship Specialty Start Date End Date None PCP - General 09/18/16 None
--- OUTSIDE RECORDS SUMMARY | 2022-06-06 00:35 | XMS_ITS | Encounter Summary ---
:1965 Author Organization [facility] Address [address] [place] [address] Care Team Providers Name Role Phone None Primary Care Provider Unavailable Encounter Details Date Type Department Care Team Description 09/18/2016 Hospital Encounter [place] [facility] ManinderlexiicarlosBowen, initial [address] Ankit MD encounter [facility] [id number] CENTER [phone] GENERAL SURGERY [place] [id number] Social History Tobacco Use Types Packs/Day Years Used Date Never Smoker Smokeless Tobacco: Current User Chew Alcohol Use Standard Drinks/Week Comments Yes 12 (1 standard drink = 0.6 oz pure alcoh ol) Sex Assigned at Date Recorded Not on file documented as of this encounter Medications at Time of Discharge Medication Sig Dispensed Refills Start Date End Date lisinopril (PRINIVIL;ZESTRIL) Take 20 mg by 0 04/14/2022 20 mg Tablet mouth daily. hydroCHLOROthiazide Take 25 mg by 0 (HYDRODIURIL) 25 mg Tablet mouth daily. documented as of this encounter Plan of Treatment Upcoming Encounters Date Type Specialty Care Team Description 06/11/2022 Laboratory Appointment Lab 06/11/2022 Office Visit Nephrology Mustapha Anderson MD [facility] ER NEPHHOANG DEPT [place], [place] [address] (Wo rk) 07/01/2022 Office Visit Neurology Devendra Mayes APRN [facility] [place] [address] (Wo rk) documented as of this encounter Procedures Procedure Name Priority Date/Time Associated Diagnosis Comme nts XR CHEST PA AND Routine 09/18/2016 12:04 PM Fall, initial Resu lts for this LATERAL EST encounter procedure are i n the results section. documented in this encounter Results XR Chest PA & Lateral (Generic) (09/18/2016 12:04 PM EST) Anatomical Region Laterality Modality Chest N/A Digital Radiography Specimen (Source) Anatomical Location Collection Method / Collectio n Time Received Time / Laterality Volume Impressions 09/18/2016 12:24 PM EST No active cardiopulmonary pathology identified. Narrative 09/18/2016 12:24 PM EST EXAMINATION: XR CHEST PA AND LATERAL (GENERIC) CLINICAL HISTORY: s/p fall, s/p multiple left sided rib fx, evaluate pulmonary process TECHNIQUE: PA and lateral views of the c hest. ? COMPARISON: 09/04/2016. FINDINGS: The lungs appear clear. No ple ural fluid or pneumothorax is seen. The cardiomediastinal silhouette, fran, pulm onary vessels appear unchanged. No interval osseous findings are seen. Procedure Note Patricia Beach MD - 09/18/2016Formatt ing of this note might be different from the original. EXAMINATION: XR CHEST PA AND LATERAL (GE NERIC) CLINICAL HISTORY: s/p fall, s/p multiple left sided rib fx, evaluate pulmonary process TECHNIQUE: PA and lateral views of the c hest. COMPARISON: 09/04/2016. FINDINGS: The lungs appear clear. No ple ural fluid or pneumothorax is seen. The cardiomediastinal silhouette, fran, pulm onary vessels appear unchanged. No interval osseous findings are seen. IMPRESSION No active cardiopulmonary pathology iden tified. Bowen Huff MD IMG DX ORDERABLES documented in this encounter Visit Diagnoses Diagnosis Fall, initial encounter documented in this encounter Care Teams Wellness Rn Relationship Specialty Start Date End Date None PCP - General 09/18/16 None documented as of this encounter
--- OUTSIDE RECORDS SUMMARY | 2022-06-06 00:35 | XMS_ITS | Encounter Summary ---
:1965 [place] [address] Care Team Providers Name Role Phone None Primary Care Provider Unavailable Encounter Details Date Type Department Care Team Description 04/05/2022 Hospital Encounter [facility] at at Felicia Le MD [facility] [place] [address] [place] [address] [phone] Social History Tobacco Use Types Packs/Day Years [...] tamsulosin (Flomax) 0.4 mg Take 2 capsules 90 tablet 3 03/31 Capsule by mouth daily. atorvastatin (Lipitor) 20 mg Take 1 tablet by 0 0 04/14/2022 Tablet mouth daily. chlorthalidone (Hygroten) 25 Take 1 tablet by 30 tablet 3 0 04/15/2022 05/14/2022 mg Tablet mouth daily. labetaloL (Normodyne) 200 mg Take 1 tablet by 30 tablet 3 0 04/14/2022 04/14/2022 Tablet mouth 3 times daily. spironolactone (Aldactone) Take 1 tablet by 90 tablet 3 05/14/2022 25 mg Tablet mouth daily. atorvastatin (Lipitor) 40 mg Take 1 tablet by 90 tablet 3 0 04/14/2022 04/14/2022 Tablet mouth daily. labetaloL (Normodyne) 200 mg Take 1.5 tablets 30 tablet 3 0 04/14/2022 05/14/2022 Tablet by mouth 3 times daily. lisinopril Take 20 mg by 0 04/14/2022 (PRINIVIL;ZESTRIL) 20 mg mouth daily. Tablet hydroCHLOROthiazide Take 25 mg by 0 (HYDRODIURIL) 25 mg Tablet mouth daily. documented as of this encounter Plan of Treatment Upcoming Encounters Date Type Specialty Care Team Description 06/11/2022 Laboratory Appointment Lab 06/11/2022 Office Visit Nephrology Mustapha Anderson MD [facility] NEPHROLOGY DEPT [place], [place] [address] (Wo rk) 07/01/2022 Office Visit Neurology Devendra Mayes, ANA [facility] [place], [place] [address] (Wo rk) documented as of this encounter Visit Diagnoses Not on filedocumented in this encounter Care Teams Sleep Manager Relationship Specialty Start Date End Date None PCP - General 09/18/16 None documented as of this encounter
--- OUTSIDE RECORDS SUMMARY | 2022-06-06 00:35 | XMS_ITS | Encounter Summary ---
:1965 Author Organization [facility] Address [address] [place] [address] Care Team Providers Name Role Phone None Primary Care Provider Unavailable Reason for Visit Reason Comments Follow Up Fracture Encounter Details Date Type Department Care Team Description 10/23/2016 Office Visit Orthopaedics at [facility] Kg King Other closed [facility] MD Gabe [address] [place] [address] briceno of left radius [phone] ORTHOPAEDIC with routine cassie connor SURGERY subsequent encounter [place] Shadi5 Social History Tobacco Use Types Packs/Day Years Used Date Never Smoker Smokeless Tobacco: Current User Chew Alcohol Use Standard Drinks/Week Comments Yes 12 (1 standard drink = 0.6 oz pure alcoh ol) Sex Assigned at Date Recorded Not on file documented as of this encounter Last Filed Vital Signs Vital Sign Reading Time Taken Comments Blood Pressure - - Pulse - - Temperature - - Respiratory Rate - - Oxygen Saturation - - Inhaled Oxygen Concentration - - Weight 131.5 kg (290 lb) 10/23/2016 10:33 AM EST Height 180.3 cm (5' 11) 10/23/2016 10:33 AM EST Body Mass Index 40.45 10/23/2016 10:33 AM EST documented in this encounter Progress Notes Monty Meyer - 10/23/2016 11:00 AM EST Iain Go presents to the clinic for a cast off per Dr. King. The cast was broken in the webspace on arrival. The patient was explained how the cast saw works and the cast was removed. The patient tolerated this procedure well. The patient's skin will be assessed at his appointment today.The patient was then sent to x-ray. Kg King - 10/23/2016 11:00 AM EST Mr. Go is a 51-year-old gentleman who is over 6 weeks status post intra-articular but minimally displaced left radial fracture resulting from a fall from a roof while removing snow, working for [employer]. We saw him approximately a month ago. At that time, we converted him to a short arm cast, and he actually went back to work sometime in the early part of October. 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 The cast was certainly not a problem for him. With x-rays today showing maintenance of a very nice reduction and unequivocal healing, we did remove the cast. On exam, he had no tenderness over the fracture. His pronation and supination are within 80% of normal. He has full flexion of the elbow. 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 I gave him the option of thinking in terms of occupational therapy, as well as the option of using a wrist splint that he could remove as he feels fit, but he says he does not need the occupational therapy. He could do the exercises, and I showed him circumduction exercising of the wrist and strengthening for the forearm muscles with the admonition of not doing activities comparable to a push-up or a pull-up for at least another month or 6 weeks, until his strength and his range are better. The wrist splint he could remove at will. I think that also now that he certainly has healing, he could use like 440 mg of naproxen sodium in the morning before he goes to work. I think that that will also make him a little bit more comfortable during the course of the day. It would not be necessary to see him again unless this wrist plateaus at a level that is less than ideal. documented in this encounter Plan of Treatment Upcoming Encounters Date Type Specialty Care Team Description 06/11/2022 Laboratory Appointment Lab 06/11/2022 Office Visit Nephrology Mustapha Anderson MD [facility] NEPHROLOGY DEPT [place], [place] [address] (Wo rk) 07/01/2022 Office Visit Neurology Devendra Mayes, ANA [facility] [place], [place] [address] (Wo rk) documented as of this encounter Visit Diagnoses Diagnosis Other closed extra-articular fracture of distal end of left radius with routine healing, subsequent encounter documented in this encounter Care Teams Carpenter Helper Maintenance Relationship Specialty Start Date End Date None PCP - General 09/18/16 None documented as of this encounter
--- OUTSIDE RECORDS SUMMARY | 2022-06-06 00:35 | XMS_ITS | Encounter Summary ---
:1965 Author Organization [facility] [place] [address] Care Team Providers Name Role Phone None Primary Care Provider Unavailable Reason for Visit Reason Comments Eye Problem HTN Retinopathy OD Consultation (Routine) - Closed Specialty Diagnoses / Procedures Referred By Contact Refer red To Contact Ophthalmology Diagnoses Hypertensive emergency Nontraumatic subcortical hemorrhage of cerebral hemisphere, unspecified laterality Adamaris Griffin, ANA Mckay, [facility] Twan Velasco MD Neurology Dept [facility] [place] [address] [place] [address] Fax: Referral ID Status Reason Start Date Expiration Date Visits V isits Requested Authorized [id number] Closed Consult, 04/14/2022 04/14/2023 1 1 Test & Treat Encounter Details Date Type Department Care Team Description 05/14/2022 Office Visit Ophthalmology at [facility] Randa Mckay, Hypertensive retinopathy of both eyes (Primary Dx); [facility] MD [place] [address] Center [phone] [place], [place] [address] Social History Tobacco Use Types Packs/Day Years Used Date Never Smoker Smokeless Tobacco: Current User Chew Alcohol Use Standard Drinks/Week Comments Yes 12 (1 standard drink = 0.6 oz pure alcoh ol) Sex Assigned at Date Recorded Not on file documented as of this encounter Progress Notes Krista Mckay MD - 05/14/2022 9:15 AM EDT ASSESSMENT/PLAN: 1. Hypertensive emergency 2. Hypertensive retinopathy of both eyes Visual Acuity Visual Acuity (Snellen - Linear) Right Left Dist cc 20/25 +2 20/40 -1 Dist ph cc NI NI Near cc 20/25-1+2 20/25-3 Correction: Glasses Tonometry Tonometry (Applanation, 9:40 AM) Right Left Pressure 10 10 Holding lids OU 1. Hypertensive retinopathy OU (Dx 04/08/22) Today 05/14/2022 the vision has significantly improved and the hypertensive retinopathy does not significantly affect the visual function. Education provided and recommended good BP control Fu with Dr. Georges in 4-6mo and with retina PRN documented in this encounter Plan of Treatment Upcoming Encounters Date Type Specialty Care Team Description 06/11/2022 Laboratory Appointment Lab 06/11/2022 Office Visit Nephrology Mustapha Anderson MD [facility] NEPHROLOGY DEPT [place], [place] [address] (Wo rk) 07/01/2022 Office Visit Neurology Devendra Mayes, PAWN BROKER [facility] [place], [place] [address] (Wo rk) documented as of this encounter Procedures Procedure Name Priority Date/Time Associated Diagnosis Comme nts OCT RETINA - OU - Routine 05/14/2022 10:10 Hypertensive Result s for this BOTH EYES AM EDT emergency procedure are in Hypertensive the results retinopathy of both section. eyes documented in this encounter Results OCT Retina - OU - Both [...] intraretinal fluid. Krista Mckay MD OPHTHALMOLOGY SERVICES LILIANA ROCHA documented in this encounter Visit Diagnoses Diagnosis Hypertensive retinopathy of both eyes - Primary Hypertensive retinopathy Hypertensive emergency Unspecified essential hypertension documented in this encounter Care Teams Edger Automatic Relationship Specialty Start Date End Date None PCP - General 09/18/16 None documented as of this encounter
--- OUTSIDE RECORDS SUMMARY | 2022-06-06 00:36 | XMS_ITS | Encounter Summary ---
:1965 Author Organization [facility] Address [address] [place] [address] Care Team Providers Name Role Phone Unknown Primary Care Provider Unavailable Encounter Details Date Type Department Care Team Description 09/03/2016 [facility] [place] [address] [place] [address] [phone] (Wo rk) Social History Tobacco Use Types Packs/Day Years Used Date Never Assessed Sex Assigned at Date Recorded Not on file documented as of this encounter Medications at Time of Discharge Medication Sig Dispensed Refills Start Date End Date acetaminophen (TYLENOL) 500 Take 2 tablets 56 tablet 0 12/201609/11/2016 mg Tablet by mouth every 6 hours for 7 days. oxyCODONE (ROXICODONE) 5 mg Take 1 tablet by 20 tablet 0 09/07/2016 Tablet mouth every 4 hours as needed for Pain for up to 3 days. lisinopril (PRINIVIL;ZESTRIL) Take 20 mg by 0 04/14/2022 20 mg Tablet mouth daily. hydroCHLOROthiazide Take 25 mg by 0 (HYDRODIURIL) 25 mg Tablet mouth daily. documented as of this encounter Plan of Treatment Upcoming Encounters Date Type Specialty Care Team Description 06/11/2022 Laboratory Appointment Lab 06/11/2022 Office Visit Nephrology Mustapha Anderson MD [facility] DR NEPHROLOGY DEPT [place], [place] [address] (Wo rk) 07/01/2022 Office Visit Neurology Gerber, Devendra Tijerina, RN [facility] er [place] [address] (Wo rk) documented as of this encounter Procedures Procedure Name Priority Date/Time Associated Diagnosis Comme nts FILM LIBRARY Routine 09/03/2016 12:15 AM Pain Results for this STORAGE ONLY DX EST procedure ar e in UPPER EXTREMITY the results section. documented in this encounter Results Film Library- Storage Only DX Upper Extremity (09/03/2016 12:15 AM EST) Specimen (Source) Anatomical Location Collection Method / Collectio n Time Received Time / Laterality Volume Narrative JASMEET RAD - 09/03/2016 6:57 PM EST This exam is for storage only and is aut o-finalizing. Ghanshyam Muhammad MD IMHimanshu FILM LIBRARY ORDERABLES Performing Organization Address City/State/ZIP Code Phon e Number [facility] BRIG[place]TE [place] documented in this encounter Visit Diagnoses Diagnosis Pain Generalized pain documented in this encounter Care Teams Harness Repairer Relationship Specialty Start Date End Date Unknown PCP - General 08/14/16 09/17/16 None documented as of this encounter
--- OUTSIDE RECORDS SUMMARY | 2022-06-06 00:36 | XMS_ITS | Encounter Summary ---
:1965 Author Organization [place] [address] Care Team Providers Name Role Phone Unknown Primary Care Provider Unavailable Encounter Details Date Type Department Care Team Description 09/04/2016 Orders Only Orthopaedics at [facility] Kg King, Left wrist injury, [facility] [place] [address] ORTHOPAEDIC SURGERY [place], [place] [address] Social History Tobacco Use Types Packs/Day Years Used Date Never Smoker Smokeless Tobacco: Never Used Alcohol Use Standard Drinks/Week Comments No 0 (1 standard drink = 0.6 oz pure alcoho l) Sex Assigned at Date Recorded Not on file documented as of this encounter Plan of Treatment Upcoming Encounters Date Type Specialty Care Team Description 06/11/2022 Laboratory Appointment Lab 06/11/2022 Office Visit Nephrology Mustapha Anderson MD [facility] ER NEPHROLOGY DEPT [place], [place] [address] (Wo rk) 07/01/2022 Office Visit Neurology Devendra Mayes APRN [facility] er [place], [place] [address] (Wo rk) documented as of this encounter Results XR Wrist Complete Min 3 views Left (Generic) (09/18/2016 12:04 PM EST) Anatomical Region Laterality Modality Left Digital Radiography Specimen (Source) Anatomical Location Collection Method / Collectio n Time Received Time / Laterality Volume Impressions 09/18/2016 1:36 PM EST No change in alignment of distal radial fracture. Narrative 09/18/2016 1:36 PM EST EXAMINATION: XR WRIST COMPLETE MIN 3 VIEWS LEFT (GENERIC) CLINICAL HISTORY: LEFT WRIST MIN DISPLAC ED DIST RAD FX DOI 09/03/16 TECHNIQUE: PA, lateral and oblique LEFT wrist COMPARISON: 09/03/2016 FINDINGS: There is no interval change, specificall y in the alignment of the comminuted mildly impacted intra-articular fracture of the distal radius. As seen previously, bony detail is obscured by t he overlying cast. Procedure Note Ruben Sen MD - 09/18/2016Formatt ing of this note might be different from the original. EXAMINATION: XR WRIST COMPLETE MIN 3 VIE WS LEFT (GENERIC) CLINICAL HISTORY: LEFT WRIST MIN DISPLAC ED DIST RAD FX DOI 09/03/16 TECHNIQUE: PA, lateral and oblique LEFT wrist COMPARISON: 09/03/2016 FINDINGS: There is no interval change, specificall y in the alignment of the comminuted mildly impacted intra-articular fracture of the distal radius. As seen previously, bony detail is obscured by t he overlying cast. IMPRESSION No change in alignment of distal radial fracture. Kg King MD IMG DX ORDERABLES documented in this encounter Visit Diagnoses Diagnosis Left wrist injury, initial encounter Left wrist injury, initial encounter documented in this encounter Care Teams Sous Chef Kitchen Manager Relationship Specialty Start Date End Date Unknown PCP - General 08/14/16 09/17/16 None documented as of this encounter
--- OUTSIDE RECORDS SUMMARY | 2022-06-06 00:36 | XMS_ITS | Encounter Summary ---
:1965 Author Organization [facility] Address [address] [place] [address] Care Team Providers Name Role Phone Unknown Primary Care Provider Unavailable Encounter Details Date Type Department Care Team Description 09/03/2016 Hospital Encounter Radiology Library at [facility] BRIGITTE Singh [id number] Social History Tobacco Use Types Packs/Day Years [...] 06/11/2022 Laboratory Appointment Lab 06/11/2022 Office Visit NephMustapha Honeycutt MD [facility] [place], [place] [address] (Wo shanna) 07/01/2022 Office Visit Neurology Devendra Mayes APRN [facility] [address] [place] [address] (Wo rk) documented as of this encounter Procedures Procedure Name Priority Date/Time Associated Diagnosis Comme nts REQUEST FOR 2ND STAT 09/03/2016 10:47 PM Resul ts for this READ DX WRIST EST procedure are in the results section. documented in this encounter Results Request for 2nd read DX Wrist (09/03/2016 10:47 PM EST) Anatomical Region Laterality Modality SO Specimen (Source) Anatomical Location Collection Method / Collectio n Time Received Time / Laterality Volume Impressions 09/03/2016 11:49 PM EST 1. ??Comminuted, mildly impacted intra-articular fracture of the LEFT distal radius. 2. ??Possible nondisplaced fracture of t he proximal third of the scaphoid. 3. ??No fracture of the ulna, proximal r adius. Elbow joint is maintained. Narrative 09/03/2016 11:49 PM EST EXAMINATION: REQUEST FOR 2ND READ DX WRIST CLINICAL HISTORY: s/p traumatic fall, Wh at Modality is the exam? Diagnostic, Body Part (please add comments as necess kaelyn): left wrist, I believe a reinterpretation of this exam may alter care of Patient. Yes TECHNIQUE: Frontal lateral and oblique v iews of the LEFT wrist, frontal lateral views of the tibia and fibula, lateral v iew of the LEFT elbow COMPARISON: None FINDINGS: There is a comminuted, mildly impacted, intra-articular fracture of the LEFT distal radius. There may be a nondisplac ed fracture of the LEFT proximal third of the scaphoid. No fracture or dislocat ion of the proximal radius and ulna. The elbow joint is maintained. No elbow join t effusion. Procedure Note Carmine Higgins MD - 09/03/2016Formatti ng of this note might be different from the original. EXAMINATION: REQUEST FOR 2ND READ DX WRI ST CLINICAL HISTORY: s/p traumatic fall, Wh at Modality is the exam? Diagnostic, Body Part (please add comments as necess kaelyn): left wrist, I believe a reinterpretation of this exam may alter care of Patient. Yes TECHNIQUE: Frontal lateral and oblique v iews of the LEFT wrist, frontal lateral views of the tibia and fibula, lateral v iew of the LEFT elbow COMPARISON: None FINDINGS: There is a comminuted, mildly impacted, intra-articular fracture of the LEFT distal radius. There may be a nondisplac ed fracture of the LEFT proximal third of the scaphoid. No fracture or dislocat ion of the proximal radius and ulna. The elbow joint is maintained. No elbow join t effusion. IMPRESSION 1. Comminuted, mildly impacted intra-art icular fracture of the LEFT distal radius. 2. Possible nondisplaced fracture of the proximal third of the scaphoid. 3. No fracture of the ulna, proximal rad ius. Elbow joint is maintained. Michelle Olivera MD IMG OUTSIDE INTERPRETATION O RDERABLES documented in this encounter Visit Diagnoses Not on filedocumented in this encounter Care Teams Engraver Letter Relationship Specialty Start Date End Date Unknown PCP - General 08/14/16 09/17/16 None documented as of this encounter
--- OUTSIDE RECORDS SUMMARY | 2022-06-06 00:36 | XMS_ITS | Encounter Summary ---
:1965 [place] [address] Care Team Providers Name Role Phone Unknown Primary Care Provider Unavailable Reason for Visit Reason Comments Trauma Alert Auth/Cert Specialty Diagnoses / Procedures Referred By Contact Refer red To Contact Diagnoses Rib fracture Fall, initial encounter Procedures EMERGENCY IPI Referral ID Status Reason Start Date Expiration Date Visits Requ ested Visits Authorized [id number] 1 1 Encounter Details Date Type Department Care Team Description 09/03/2016 - Hospital Encounter 3 [facility] Matty Olivera MD [facility] [place] [address] Fall, initial encounter; 09/04/2016 [facility] Ghanshyam Camara MD [facility] [place] [address] Closed -punch intra-articular fractur e of distal radius, left, [place] [id number] Social History Tobacco Use Types Packs/Day Years Used Date Never Smoker Smokeless Tobacco: Never Used Alcohol Use Standard Drinks/Week Comments No 0 (1 standard drink = 0.6 oz pure alcoho l) Sex Assigned at Date Recorded Not on file documented as of this encounter Last Filed Vital Signs Vital Sign Reading Time Taken Comments Blood Pressure 152/98 09/04/2016 12:41 PM EST RN aware Pulse 91 09/04/2016 12:35 AM EST Temperature 36.3 ??C (97.3 ??F) 09/04/2016 12:23 PM EST Respiratory Rate 20 09/04/2016 12:23 PM EST Oxygen Saturation 91% 09/04/2016 12:41 PM EST Inhaled Oxygen Concentration - - Weight 143.1 kg (315 lb 8 oz) 09/04/2016 12:35 AM EST Height 180.3 cm (5' 11) 09/04/2016 12:35 AM EST Body Mass Index 44 09/04/2016 12:35 AM EST documented in this encounter Discharge Summaries Emanuel, Munabrandi Quiles APRN - 09/04/2016 3:15 PM EST Trauma and Acute Care Surgery Discharge Summary Patient Name: Iain Go Patient Age: 51 y.o. : 1965 Attending Physician: Ghanshyam Camara MD Date of Admission: 09/03/2016 Date of Discharge: 09/04/2016 Primary Diagnosis: fall from ladder Injury Intervention Follow-up Nondisplaced left fifth, sixth and seventh lateral rib fractures. Aggressive Pulmonary toilet Pain control Trauma Clinic 2 weeks with CXR prior L flank hematoma CBC stable L distal radial fx Orthopedic Consult Closed reduction in ED Splint in place NWB LUE Orthopedic Clinic 2 weeks With xray prior Other In-hospital Issues: Acute pain Chronic HTN Incidental Radiographic Findings: none Secondary Diagnosis: Past Medical History Diagnosis Date ??? HTN (hypertension) Allergies: No Known Allergies Operations/Procedures: 09/03 closed reduction left radius fracture in ED Hospital Course: Iain Go is a 51 y.o. male involved in a fall from ladder on 09/03/2016. Injuries noted as above. Orthopedic consulted for L distal radius fracture. Reduced in ED and splinted. Neuro intact. Pt admitted for pain control in setting of multiple left sided rib fractures. Repeat CXR PA/lateral HD # 1 without effusion. SPO2 > 92% on room air; Pt able to pull > 1L TV on incentive spirometer. Iain Go's pain was adequately controlled, s/he was maintaining adequate oxygen saturation on room air, and was hemodynamically stable. He was tolerating a diet without abdominal complaints and voiding adequately. WBC and Hgb were stable. He was ambulating indpendently. Iain Go was evaluated by the Surgery Team and deemed medically stable for discharge on 09/04/2016 . Plan: ?? NEURO: -acute pain: scheduled tylenol 1000mg Q 6 hrs for 7 days post discharge; oxycodone 5 mg Q 4 hrs prn for 3 days post discharge ?? SPINE: -CTLS cleared ?? PULM: -Nondisplaced left fifth, sixth and seventh lateral rib fractures: pain control; incentive spirometer Q 4 hours while awake for 7 days post discharge; coughing and deep breathing exercises QID for 7 days post discharge; ?? CARDIAC: -Chronic HTN: continue home lisinopril/HCTZ ?? GI: ?? Diet:regular ?? NBO: continue cathartics while taking narcotic analgesia ?? 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 RENAL: -left flank hematoma: urine dip negative; voiding -BMP stable follow clinically relevant ?? HEME: -L flank hematoma: CBC stable; follow clinically relevant ?? ID: -follow for s&s of infection ?? OTHER: -L distal radial fracture; Ortho consult; closed reduction in ED; NWB LUE; splint ?? CONSULTS: ?? Orthopedics: -Assessment/Plan: 51 y.o. male with L distal radius fx, no other injuries identified on ortho tert this am. Minimally displaced, splinted, plan for fu in 2 weeks in general ortho with XR L wrist ??- Activity- NWB LUE, splint - DVT prophylaxis- per trauma - Medications prescribed - None ??JENAE LUNA MD Orthopaedic Surgery ?? Follow-up- see below Pending Lab Data at Discharge: None. Pertinent Lab Data: Recent Labs 09/04/16 0457 09/03/16 2137 WBC 12.3* 17.3* HGB 13.6* 15.0 HCT 40.0* 43.8 PLATELET 214 264 PT -- 14.3 INR -- 1.1 PTT -- 25 Recent Labs 09/04/16 0457 09/03/16 2137 NA 138 138 K 4.3 4.8 CL 105 103 CO2 22 22 BUN 18 16 CREATININE 1.03 1.10 GLUCOSE 129 139 CALCIUM 8.1* 8.4* Pertinent Imagin/5 CXR: FINDINGS: Multiple displaced left-sided rib fractures are seen again. Mild atelectasis at the left base. Trace blunting of the posterior costophrenic angles, which based on the prior CT may be just due to prominent pleural fat. Size of the heart and width of the mediastinum are within normal limits. The projection angle of the PA chest radiograph is quite markedly rotated. Degenerative changes of the spine. Ossicle adjacent to the clavicular coracoid interval has a chronic appearance. ??IMPRESSION Mild atelectasis at the left base. Sequela of multiple left-sided rib fractures. ?? CT chest/Abdomen/Pelvis: ??FINDINGS: ??Lung bases: No infiltrates are present. Small bulla are seen in the lower lungs bilaterally. There are no pleural effusions. ? Liver: Normal size, no focal lesions Bile ducts: Nondilated Gallbladder: No calcified gallstones. Normal caliber wall Pancreas: Normal Spleen: Normal Adrenals: Normal Kidneys: Normal ? Lymph Nodes: No enlarged lymph nodes. Bowel: Normal caliber. No adjacent inflammatory changes or wall thickening. Peritoneum: No ascites or free air, no fluid collection. Vasculature: No significant atherosclerotic disease. ? Urinary Bladder: Abdominal wall: Patchy and strandy opacities in the subcutaneous tissues of the left flank, left lower back and adjacent to the left gluteal muscles may represent hematomas related to this patient's prior injury. Bones: Fractures of the lateral aspects of the left fifth, sixth and seventh ribs are visible. Ribs above this level are not included in the field of view. ? IMPRESSION 1. No injuries to the internal abdominal or pelvic organs. 2. Subcutaneous hematomas in the left flank. 3. Left-sided rib fractures ?? CT Chest: FINDINGS: Lungs and airways: Large airways are patent. No focal airspace opacity. There is mild bibasal atelectasis. There are scattered emphysematous changes throughout both lungs. Pleura and pericardium: No pericardial or pleural effusion. No pneumothorax Heart and vasculature: Normal size. Normal thoracic aorta. Mediastinum and hilar structures: No lymphadenopathy Limited views of the upper abdomen are normal. Osseous structures: Nondisplaced left 5, 6 and 7th lateral rib fractures. See separate dictation for reformats of the thoracic spine ? IMPRESSION Impression: 1. Nondisplaced left fifth, sixth and seventh lateral rib fractures. 2. No evidence of intrathoracic soft tissue or vascular injury. ?? CT Thoracic Spine Recon FINDINGS: There are 12 rib-bearing thoracic vertebra. Normal alignment of the thoracic spine. Evaluation is limited by motion artifact. Vertebral body heights and disc space heights are well-maintained. No acute fracture or dislocation. There are disc degenerative changes in the lower thoracic spine characterized by subchondral sclerotic changes and marginal osteophytes. No central canal narrowing. ? IMPRESSION No acute fracture or malalignment ?? FINDINGS: Unchanged alignment of the comminuted mildly impacted intra-articular fracture of the left distal radius. Unchanged appearance of the dorsally displaced fracture fragments. No new fracture is identified.The scaphoid is not well evaluated as cast material limits fine osseous and soft tissue detail. Carpal alignment is unchanged. ??IMPRESSION Unchanged alignment of the comminuted mildly impacted intra-articular left distal radius fracture, status post reduction. ?? CT Chest/Abd/Pelvis OSH: Impression: non angulated fracture anterior left 5-7 rib fracture; soft tissue injury left lower abdomen, parasagital posterior soft tissue and left hip; No evidence of acute abdomen and pelvic trauma ?? Discharge Physical Examination: Vital Signs: Last value Range last 24hrs Temperature Temp: 36.3 ??C (97.3 ??F) Temp: [36.3 ??C (97.3 ??F)-37.5 ??C (99.5 ??F)] Heart Rate Heart Rate: 91 Heart Rate: [86-95] Blood Pressure BP: (!) 152/98 (RN aware) BP: (141-184)/(86-148) Respiratory Rate Resp: 20 Resp: [18-30] SpO2 SpO2: 91 % SpO2: [91 %-97 %] Physical Exam: GENERAL: alert, awake and no apparent distress HEAD: Normocephalic, without obvious abnormality, atraumatic FACE: Pupils: equal, round, reactive to light, no periorbital ecchymoses; Tympanic Membranes: clear to visualization; Midface: no tenderness, no swelling, no contusions, no lacerations and no abrasions over entire face Oropharynx: chronic decaying teeth, nonbloody, moist mucous membranes, no lacerations, no malocclusion and no chipped or missing teeth NECK:no tenderness to palpation, trachea midline, no masses, no swelling, no contusions and no abrasions LUNG/chest: tender over L lateral chest wall, equal, clear breath sounds bilaterally and no crepitus CARDIAC: Regular rate and rhythm or without murmur or extra heart sounds ABDOMEN/GI: soft, non-tender, non-distended, no abrasions and no contusions PELVIS: pain over R hip, stable to AP and/or lateral compression; + bilateral groin pain with ambulation RECTAL: deferred EXTREMITIES: LUE anat splint no gross deformity/open wound, RUE with old surgical scars well healed, normal and symmetric movement, normal range of motion, no joint swelling SPINE: no deformity, no stepoffs, no tenderness to palpation and no abrasions over cervical spine, thoracic spine and/or lumbar spine SKIN: no lacerations, abrasions or contusions on complete skin exam NEURO: Mental Status: awake and alert, oriented to time, date, person Cranial Nerves: CN II - XII intact Motor: normal 5/5 strength in all tested muscle groups Sensory: no sensory deficits noted Current Medications: The following medications have been prescribed for you. If you notice any adverse reactions to your medications, please contact your primary care physician immediately or go to the nearest Emergency Department. Your Medications New Medications Dose Details acetaminophen 500 mg Tab Commonly known as: TYLENOL Take 2 tablets by mouth every 6 hours for 7 days. 1000 mg Quantity: 56 tablet Refills: 0 oxyCODONE 5 mg Tab Commonly known as: ROXICODONE Take 1 tablet by mouth every 4 hours as needed for Pain for up to 3 days. 5 mg Quantity: 20 tablet Refills: 0 Continued medications, unchanged Dose Details hydroCHLOROthiazide 25 mg Tab Commonly known as: HYDRODIURIL Take 25 mg by mouth daily. 25 mg Refills: 0 lisinopril 20 mg Tab Commonly known as: PRINIVIL;ZESTRIL Take 20 mg by mouth daily. 20 mg Refills: 0 Disposition: Home Scheduled Appointments: The following appointments have been scheduled on your behalf: Future Appointments Date Time Provider Department Center 09/18/2016 12:25 PM [facility] DX ROOM 1 Xray [facility] 09/18/2016 1:30 PM Kg King MD [facility] Outpatient Services/Studies: XR Chest PA & Lateral (Generic) Standing Status: Future Standing Exp. Date: 09/04/17 Question Response Notes Where will study be performed? [facility] Reason for exam and clinical history: s/p fall; s/p multiple left sided rib fx; evaluate pulmonary process Special Instructions Given to Patient at Discharge:. An After Visit Summary was printed and given to the patient. There are no outpatient Patient Instructions on file for this admission. General Instructions Orthopaedic Home Care Instructions Care of Your Broken Bone Below are general guidelines to follow after treatment for a fracture. You will need to be aware that these guidelines are only general, each person???s recovery may vary. If you have any questions after reading this sheet, please call us. 1. INJURY: left distal radius fracture Activity Keep your cast/splint clean and dry. For the first 72 hours, keep your injured extremity raised as much as possible. You may sit in a chair or in bed with your injured extremity raised above the level of the heart (???toes above the nose?? for a leg injury). Use blankets and/or pillows to help. You may leave the bed or chair to use the bathroom or to eat. DO NOT allow the injured extremity to dangle or excessive swelling and pain will develop. Use ice over the injured extremity for about 72 hours - at least 3-4 times per day for 20 minutes kim time. You can use a simple plastic bag with ice (double the bag!) and place the bag over the injured extremity. Ice is effective even through the casts. Days 4-7, you may increase activities but only do what is absolutely necessary! You will have less pain and swelling if you CONTINUE TO RAISE YOUR INJURED EXTREMITY. Too much activity will result in discomfort and swelling, and may slow healing. You will be much happier later if you follow activity res trictions. Less is better for the first week! Weight-bearing status: non weight bearing 2. Prescriptions Adults ??? Avoid ibuprofen type medications (aleve, advil, motrin, naprosyn, celebrex). These medications have been suggested to slow bone healing. You should find yourself needing less and less pain medication after the first few days. Take your pain medicine as directed. Take any of your other usual medicines as directed. 3. Please contact us if: ??? You have excessive swelling. Typically you have not kept the injured extremity raised high enough. If the swelling does not go down after raising the injured extremity above the heart for 3 to 4 hours, call the clinic or come to the emergency department. ??? You feel excessive pain or your injured extremity becomes numb. Again, this usually happens whenthe injured extremity is not raised high enough. If the pain does not lessen after 3 to 4 hours of strict elevation, call the clinic. ??? Your cast/splint is too tight. Follow the instructions about raising the extremity. If you have any questions or concerns, please call the following: Orthopaedic Clinic Thursday thru Thursday 8am - 5pm (see below) Orthopaedic Physician shoulder boner --After 5pm and Weekends [phone] We are interested in your prompt and healthy recovery. Please follow the above instructions. Please call the office (at number below) to verify your post fracture appointment, typically the following day or Thursday if you injure yourself over the weekend. Your care today was provided by JENAE LUNA MD Follow up in 2 weeks will be arranged in the following orthopaedic clinic General orthopedic clinic (trauma/sports/pediatrics) [phone] Your care was managed by the Trauma and Acute Care Surgery Team at [facility]. If you have any questions or concerns, please feel free to contact us. Provider Contact Information: General Surgery Clinic: Nurses line for questions: [facility] (after business hours): CC: Unknown Kennedi Baldev Moreno APRN Signed: MUNA AVILA APRN Department of Surgery 09/04/2016 documented in this encounter Discharge Instructions Discharge InstructionsMuna Avila APRN - 09/04/2016 3:38 PM EST Orthopaedic Home Care Instructions Care of Your Broken Bone Below are general guidelines to follow after treatment for a fracture. You will need to be aware that these guidelines are only general, each person???s recovery may vary. If you have any questions after reading this sheet, please call us. 1. INJURY: left distal radius fracture Activity Keep your cast/splint clean and dry. For the first 72 hours, keep your injured extremity raised as much as possible. You may sit in a chair or in bed with your injured extremity raised above the level of the heart (???toes above the nose?? for a leg injury). Use blankets and/or pillows to help. You may leave the bed or chair to use the bathroom or to eat. DO NOT allow the injured extremity to dangle or excessive swelling and pain will develop. Use ice over the injured extremity for about 72 hours - at least 3-4 times per day for 20 minutes kim time. You can use a simple plastic bag with ice (double the bag!) and place the bag over the injured extremity. Ice is effective even through the casts. Days 4-7, you may increase activities but only do what is absolutely necessary! You will have less pain and swelling if you CONTINUE TO RAISE YOUR INJURED EXTREMITY. Too much activity will result in discomfort and swelling, and may slow healing. You will be much happier later if you follow activity res trictions. Less is better for the first week! Weight-bearing status: non weight bearing 2. Prescriptions Adults ??? Avoid ibuprofen type medications (aleve, advil, motrin, naprosyn, celebrex). These medications have been suggested to slow bone healing. You should find yourself needing less and less pain medication after the first few days. Take your pain medicine as directed. Take any of your other usual medicines as directed. 3. Please contact us if: ??? You have excessive swelling. Typically you have not kept the injured extremity raised high enough. If the swelling does not go down after raising the injured extremity above the heart for 3 to 4 hours, call the clinic or come to the emergency department. ??? You feel excessive pain or your injured extremity becomes numb. Again, this usually happens whenthe injured extremity is not raised high enough. If the pain does not lessen after 3 to 4 hours of strict elevation, call the clinic. ??? Your cast/splint is too tight. Follow the instructions about raising the extremity. If you have any questions or concerns, please call the following: Orthopaedic Clinic Thursday thru Thursday 8am - 5pm (see below) Orthopaedic Physician shoulder boner --After 5pm and Weekends [phone] We are interested in your prompt and healthy recovery. Please follow the above instructions. Please call the office (at number below) to verify your post fracture appointment, typically the following day or Thursday if you injure yourself over the weekend. Your care today was provided by JENAE LUNA MD Follow up in 2 weeks will be arranged in the following orthopaedic clinic General orthopedic clinic (trauma/sports/pediatrics) [phone] Patient InstructionsJeetMuna alexander APRN - 09/04/2016 3:38 PM EST Discharge Instructions You were found to have the following injuries and will require follow care as outlined below: Injury Nondisplaced left fifth, sixth and seventh lateral rib fractures. L flank hematoma L distal radial fx As a result of your CT scans, you were found to have the following incidental findings, please discuss with your primary care provider at you next visit: none CALL YOUR PHYSICIAN IF: 1. You have a fever greater than 101 degrees Farenheit within one month of your surgery. 2. You have diarrhea or vomiting for >24 hours, or stop having bowel movements and passing flatus 3. You have worsening pain, not controlled with your pain medication. 4. You develop redness, swelling, or new drainage from your wounds Prescriptions: -You have been prescribed opiod pain medication (such as Percocet, Vicodin, Oxycodone or Dilaudid) to control your pain. - Take your medication exactly as prescribed - Read all instructions that come with your medication - Using this medication may cause addiction. While addiction in people with a personal or family history of addiction, it can occur in anyone. - Taking more than the amount of medication or using it with alcohol or other drugs can cause you tostop breathing resulting in coma, brain damage or . - Opioids can slow reaction time, cause drowsiness or cloud judgement. It may be unsafe for you to drive or operate heavy equipment while taking your medication. - Opioids are at risk of being diverted by anyone with access to your home and should be stored in asafe and secure place such as a locked cabinet or safe. - Unused opioids should be disposed of according to the label or patient information. ??? Narcotic pain medications may cause constipation. ??? Stool softeners, such as Colace; mild laxatives, such as Milk of Magnesia, Sennakot, or Ducolax tabs; or enemas may be used if needed and are iiap-wge-gavvihj (OTC) medications available at most local pharmacies. Prunes or prune juice, taken daily, can also be helpful for constipation treatment or prevention and are available at most [facility]. _ Narcotic pain medication can be addicting, wean yourself off these medications as quickly as you are able, using tylenol and ibuprofen if needed. Driving Restrictions: - No driving if you are too sore to enter or exit your vehicle comfortably, or if you are too sore to easily check your blind spot. No driving while using prescription pain medications Activities: - Discuss return to work or school with your provide at your follow up appointment in the trauma clinic. 5. Increase your activity slowly. 6. You may tire easily, so frequent naps may be necessary.. 7. Talk with your doctor about when you can return to work or school. 8. You may take a shower but have someone nearby in case you need help. Diet: ??? Eat a well-balanced diet. Fresh fruits, vegetables and fiber-containing foods are recommended. This will assist in wound healing. Recommendations: ??? Take it easy for two weeks. Remember, If it hurts, don't do it. ??? Take several slow, short walks each day for the first two weeks, and gradually increase your distance. We recommend at least 4 times a day. Wound Care: ? You can shower per usual routine ? Do not submerge wounds under water (avoid spas, pools and bathtubs) until fully healed. ? Do not use creams, oils, or ointments on the wound. ??? Keep the wound open to air if it is not draining. ??? See follow-up appointments for removal of sutures/nito. Comfort: ??? Some soreness can be expected. ??? Take your pain medication as needed and prescribed. ??? Taper use of pain medication as pain lessens. Follow up appointments: 1. You will have follow-up appointments at [facility] as indicated in the ???Future Appointments and Orders?? section of your discharge summary. If X-rays or CT scans have been ordered for you prior to thisappointment you will need to report to the Radiology department, desk 3T, 1 hour prior to your clinic appointment time. 2. If you do not have a scheduled follow-up appointment listed at the time of discharge, you will benotified of your scheduled appointment on the next business day. Please call [phone] if you do not hear from us by that time, as your timely follow-up is very important to us. Your care was managed by the Trauma and Acute Care Surgery Team at [facility]. If you have any questions or concerns, please feel free to contact us. Provider Contact Information: General Surgery Clinic: General Surgery Nurses line: [phone] [facility] (after business hours): CC: Primary Care Physician: documented in this encounter Medications at Time [...] mouth daily. documented as of this encounter Progress Notes Muna Avila APRN - 09/04/2016 2:47 PM EST TRAUMA & ACUTE SURGICAL CARE SERVICE TERTIARY SURVEY ID/MECHANISM OF INJURY: Iain Go is a 51 y.o. Male s/p fall from ladder HISTORY OF PRESENT ILLNESS: Iain Go is a 51 y.o. male presents to [facility] s/p fall from ladder. Description of events leading up to injury includes pt was on ladder trying to remove snow from roof, appx 8' high and the feet kicked out. He denies LOC. Brought to OSH found to have hypoxia (baseline) put on supplemental O2,and R rib fractures 5-7 in addition to R distal radial fracture. Pt says he has been experiencing SOB for some time now and sees a specialist for this ??Primary survey revealed: intact airway, equal breath sounds/respirations, present 2+ peripheral pulses with stable vital signs and no signs of bleeding, GCS 15 (6 - Follows simple motor commands, 5 -Alert and oriented, 4 - Opens eyes on own), and complete exposure. ?? Secondary survey is as follows. PMHx: Past Medical History Diagnosis Date ??? HTN (hypertension) PSHx: Hx of traumatic surgeries to RUE HOME MEDICATIONS: No prescriptions prior to admission. CURRENT MEDICATIONS: ??? sodium chloride 0.9 % flush 5 mL ??? sodium chloride 0.9 % flush 5-20 mL ??? lidocaine (XYLOCAINE) 10 mg/mL (1 %) injection 3 mg ??? naloxone (NARCAN) injection 0.2 mg ??? lactated ringers infusion 1,000 mL ??? enoxaparin (LOVENOX) injection 40 mg ??? diphenhydrAMINE (BENADRYL) injection 25 mg ??? prochlorperazine (COMPAZINE) injection 5 mg ??? ondansetron (ZOFRAN) injection 4 mg ??? naloxone (NARCAN) injection 0.2 mg ??? SHIPFITTER HELPER galicia ??? flu vacc (5-64 yrs) (PF) (AFLURIA) IM injection 0.5 mL ??? oxyCODONE (ROXICODONE) immediate release tablet 5 mg ??? acetaminophen (TYLENOL) tablet 1,000 mg ??? lisinopril (PRINIVIL;ZESTRIL) tablet 20 mg ??? hydroCHLOROthiazide (HYDRODIURIL) tablet 25 mg sodium chloride 0.9 %, lidocaine, naloxone, diphenhydrAMINE, prochlorperazine, ondansetron, naloxone, SHIPFITTER HELPER galicia, flu vacc (5-64 yrs) (PF), oxyCODONE ALLERGIES: No Known Allergies FAMILY HISTORY: is non-contributory SOCIAL HISTORY: Alcohol: rare beer (couple times year) Tobacco: denies Drug: denies Lives in [place]; sister lives nearby REVIEW OF SYSTEMS: complete 10 system ROS performed with pertinent findings below. Pertinent items are noted in HPI. PHYSICAL EXAM: VITALS: Last value Range last 24 hrs Temperature Temp: 36.3 ??C (97.3 ??F) Temp: [36.3 ??C (97.3 ??F)-37.5 ??C (99.5 ??F)] Heart Rate Heart Rate: 91 Heart Rate: [86-95] Blood Pressure BP: (!) 152/98 (RN aware) BP: (152-184)/(91-148) Respiratory Rate Resp: 20 Resp: [18-30] SpO2 SpO2: 91 % SpO2: [91 %-97 %] I/O last 3 completed shifts: In: - Out: 400 [Urine:400] Body mass index is 44 kg/(m^2). overweight GENERAL: alert, awake and no apparent distress HEAD: Normocephalic, without obvious abnormality, atraumatic FACE: Pupils: equal, round, reactive to light, no periorbital ecchymoses; Tympanic Membranes: clear to visualization; Midface: no tenderness, no swelling, no contusions, no lacerations and no abrasions over entire face Oropharynx: chronic decaying teeth, nonbloody, moist mucous membranes, no lacerations, no malocclusion and no chipped or missing teeth NECK: in collar, no tenderness to palpation, trachea midline, no masses, no swelling, no contusions and no abrasions LUNG/chest: tender over L lateral chest wall, equal, clear breath sounds bilaterally and no crepitus CARDIAC: Regular rate and rhythm or without murmur or extra heart sounds ABDOMEN/GI: soft, non-tender, non-distended, no abrasions and no contusions PELVIS: pain over R hip, stable to AP and/or lateral compression RECTAL: Sphincter tone normal with no gross blood; Voluntary anal contraction normal EXTREMITIES: LUE anat splint no gross deformity/open wound, RUE with old surgical scars well healed, normal and symmetric movement, normal range of motion, no joint swelling SPINE: no deformity, no stepoffs, no tenderness to palpation and no abrasions over cervical spine, thoracic spine and/or lumbar spine SKIN: no lacerations, abrasions or contusions on complete skin exam NEURO: Mental Status: awake and alert, oriented to time, date, person Cranial Nerves: CN II - XII intact Motor: normal 5/5 strength in all tested muscle groups Sensory: no sensory deficits noted LABORATORY: Recent Labs 09/04/16 0457 09/03/16 2137 WBC 12.3* 17.3* HGB 13.6* 15.0 HCT 40.0* 43.8 PLATELET 214 264 PT -- 14.3 INR -- 1.1 PTT -- 25 Recent Labs 09/04/16 0457 09/03/16 2137 NA 138 138 K 4.3 4.8 CL 105 103 CO2 22 22 BUN 18 16 CREATININE 1.03 1.10 GLUCOSE 129 139 CALCIUM 8.1* 8.4* RADIOLOGY: 09/04 CXR: FINDINGS: Multiple displaced left-sided rib fractures are seen again. Mild atelectasis at the left base. Trace blunting of the posterior costophrenic angles, which based on the prior CT may be just due to prominent pleural fat. Size of the heart and width of the mediastinum are within normal limits. The projection angle of the PA chest radiograph is quite markedly rotated. Degenerative changes of the spine. [place] adjacent to the clavicular coracoid interval has a chronic appearance. ??IMPRESSION Mild atelectasis at the left base. Sequela of multiple left-sided rib fractures. CT chest/Abdomen/Pelvis: ??FINDINGS: ??Lung bases: No infiltrates are present. Small bulla are seen in the lower lungs bilaterally. There are no pleural effusions. ?? Liver: Normal size, no focal lesions Bile ducts: Nondilated Gallbladder: No calcified gallstones. Normal caliber wall Pancreas: Normal Spleen: Normal Adrenals: Normal Kidneys: Normal ?? Lymph Nodes: No enlarged lymph nodes. Bowel: Normal caliber. No adjacent inflammatory changes or wall thickening. Peritoneum: No ascites or free air, no fluid collection. Vasculature: No significant atherosclerotic disease. ?? Urinary Bladder: Abdominal wall: Patchy and strandy opacities in the subcutaneous tissues of the left flank, left lower back and adjacent to the left gluteal muscles may represent hematomas related to this patient's prior injury. Bones: Fractures of the lateral aspects of the left fifth, sixth and seventh ribs are visible. Ribs above this level are not included in the field of view. ?? IMPRESSION 1. No injuries to the internal abdominal or pelvic organs. 2. Subcutaneous hematomas in the left flank. 3. Left-sided rib fractures CT Chest: FINDINGS: Lungs and airways: Large airways are patent. No focal airspace opacity. There is mild bibasal atelectasis. There are scattered emphysematous changes throughout both lungs. Pleura and pericardium: No pericardial or pleural effusion. No pneumothorax Heart and vasculature: Normal size. Normal thoracic aorta. Mediastinum and hilar structures: No lymphadenopathy Limited views of the upper abdomen are normal. Osseous structures: Nondisplaced left 5, 6 and 7th lateral rib fractures. See separate dictation for reformats of the thoracic spine ? IMPRESSION Impression: 1. Nondisplaced left fifth, sixth and seventh lateral rib fractures. 2. No evidence of intrathoracic soft tissue or vascular injury. CT Thoracic Spine Recon FINDINGS: There are 12 rib-bearing thoracic vertebra. Normal alignment of the thoracic spine. Evaluation is limited by motion artifact. Vertebral body heights and disc space heights are well-maintained. No acute fracture or dislocation. There are disc degenerative changes in the lower thoracic spine characterized by subchondral sclerotic changes and marginal osteophytes. No central canal narrowing. ?? IMPRESSION No acute fracture or malalignment FINDINGS: Unchanged alignment of the comminuted mildly impacted intra-articular fracture of the left distal radius. Unchanged appearance of the dorsally displaced fracture fragments. No new fracture is identified.The scaphoid is not well evaluated as cast material limits fine osseous and soft tissue detail. Carpal alignment is unchanged. ??IMPRESSION Unchanged alignment of the comminuted mildly impacted intra-articular left distal radius fracture, status post reduction. CT Chest/Abd/Pelvis OSH: Impression: non angulated fracture anterior left 5-7 rib fracture; soft tissue injury left lower abdomen, parasagital posterior soft tissue and left hip; No evidence of acute abdomen and pelvic trauma Incidental Radiographic Findings: none ASSESSMENT/SUMMARY OF INJURIES: 51 y.o. male s/p fall Injuries include: Nondisplaced left fifth, sixth and seventh lateral rib fractures. L flank hematoma L distal radial fx Injuries identified on Tertiary Survey: 1. Left flank hematoma Active Issues: Acute pain Chronic HTN PLAN: ?? NEURO: -acute pain: scheduled tylenol 1000mg Q 6 hrs for 7 days; oxycodone 5 mg Q 4 hrs prn for 3 days ?? SPINE: -CTLS cleared ?? PULM: -Nondisplaced left fifth, sixth and seventh lateral rib fractures: pain control; incentive spirometer Q 2 hours while awake; coughing and deep breathing exercises QID; ?? CARDIAC: -Chronic HTN: continue home lisinopril/HCTZ ?? FEN/GI: saline lock ?? Diet:regular ?? NBO: ordered ?? 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 RENAL: -left flank hematoma: urine dip negative; voiding -BMP stable follow clinically relevant ?? HEME: -L flank hematoma: CBC stable; follow clinically relevant ?? ID: -follow for s&s of infection ?? OTHER: -L distal radial fracture; Ortho consult; closed reduction in ED; NWB LUE; splint ?? CONSULTS: ?? Orthopedics: -Assessment/Plan: 51 y.o. male with L distal radius fx, no other injuries identified on ortho tert this am. Minimally displaced, splinted, plan for fu in 2 weeks in general ortho with XR L wrist ??- Activity- NWB LUE, splint - DVT prophylaxis- per trauma - Medications prescribed - None ??JENAE LUNA MD Orthopaedic Surgery ?? PT/OT: active ?? PROPHYLAXIS: 1. DVT prophylaxis: SCD; heparin 5,000 units SQ 2. GI prophylaxis: no indication ?? DISPO/Discharge Planning: floor status MUNA AVILA APRN 09/04/2016 Belen Powell RN - 09/04/2016 1:38 PM EST Patient discharge to home. IV removed, site benign. My assessment remains unchanged from my previousassessment. RN Discussed pain management with patient, pain tolerable. Patient medicated prior to discharge. Patient has all belongings and supplies needed. Patient received After Visit Summary and pres criptions. These were reviewed, patient verbalizes understanding of AVS. All questions answered. Patient encouraged to call with questions or concerns. Patient discharged to home with family. Yesi Loyd RN - 09/04/2016 2:20 AM EST Patient arrived to floor via stretcher from ED approx 0015. Patient A&O x 3, lungs clear, heart rate regular. Patient has active bowel sounds and states their last BM was on 09/03/16. Patient has a splint applied to LUE, noted to be clean dry and intact. Patient states their pain level is 0/10 when still. Patient denies chest pain, shortness of breath, numbness or tingling. Patient oriented to room, call horvath, IS. Will continue to monitor. Yesi Wheat. RN documented in this encounter H&P Notes Ghanshyam Camara MD - 09/03/2016 10:07 PM EST Trauma Service- Admission Note Patient Name: Iain Go : [id number] MR#: [id number] 09/03/2016 Hospital Day 0 days Problem List: There are no hospital problems to display for this patient. There are no active non-hospital problems to display for this patient. Past Medical and Surgical History: No past medical history on file. No past surgical history on file. Allergies: No Known Allergies Prior to Admission Medications: (Not in a hospital admission) Hospital Medications: Current Facility-Administered Medications Ordered in [facility] Medication Dose Route Frequency Provider Last Rate Last Dose ??? fentaNYL 50mcg/mL injection 50 mcg Intravenous PER TRAUMA ANALGESIC PROTOCOL Devonte Olivera MD No current [facility]-ordered outpatient prescriptions on file. Family History: No family history on file. Social History and Habits: Social History Social History ??? Marital status: Unknown Spouse name: N/A ??? Number of children: N/A ??? Years of education: N/A Occupational History ??? Not on file. Social History Main Topics ??? Smoking status: Not on file ??? Smokeless tobacco: Not on file ??? Alcohol use Not on file ??? Drug use: Not on file ??? Sexual activity: Not on file Other Topics Concern ??? Not on file Social History Narrative ID: 51 y.o. Male presents to [facility] with fall Pre Hospital Course:stable History of Present Illness: HPI 51 yo obese male fell approximately 10 feet off a ladder while cleaning snow from a roof landingon his back Did not strike his head and no LOC Taken to [facility] where had left chest pain Described left wrist pain and low back and abdominal pain CT of the abdomen demonstrated at least three left rib fx without pneumothorax Also so sq bleeding in the left hip Remained stable throughout Review of Systems: Review of Systems No acute sob +Left chest pain -Abd pain -numbness or paresthesias Physical Exam: Last Set of Vitals and range of vitals over past 24 hours: Last value Range last 24 hrs Temperature Temp: -- Heart Rate Heart Rate: -- Blood Pressure BP: -- Respiratory Rate Resp: -- SpO2 SpO2: -- Physical Exam Constitutional: He is oriented to person, place, and time. He appears well- developed and well-nourished. Obese male HENT: Head: Normocephalic and atraumatic. Eyes: Pupils are equal, round, and reactive to light. Neck: Normal range of motion. Nontender on rom Cardiovascular: Normal rate and regular rhythm. Pulmonary/Chest: Effort normal and breath sounds normal. No respiratory distress. He has no wheezes. Left chest pain Abdominal: Soft. He exhibits no distension. There is no tenderness. Musculoskeletal: He exhibits edema. Left wrist pain and swelling Neurological: He is alert and oriented to person, place, and time. Normal UE and LE strength in RUE and bilateral LE Skin: Skin is warm and dry. Psychiatric: He has a normal mood and affect. Laboratory (Last 24 Hours): Recent Results (from the past 24 hour(s)) L-Lactate2 Whole Blood Result Value Ref Range Lactate WB 2.8 (H) 0.5 - 2.2 mmol/L Basic Metabolic Panel (non-fasting) Result Value Ref Range Glucose Lvl 139 65 - 199 mg/dL BUN 16 10 - 20 mg/dL Creatinine 1.10 0.80 - 1.50 mg/dL Sodium 138 135 - 145 mmol/L Potassium 4.8 3.5 - 5.0 mmol/L Chloride 103 98 - 107 mmol/L CO2 22 22 - 31 mmol/L Anion Gap 13 5 - 15 mmol/L Calcium 8.4 (L) 8.5 - 10.5 mg/dL Estimated GFR >60 >=60 Prothrombin Time Result Value Ref Range PT 14.3 12.0 - 15.0 sec INR 1.1 0.9 - 1.1 APTT Result Value Ref Range PTT 25 25 - 35 sec Ethanol Level Result Value Ref Range Ethanol Lvl <100 mg/L Antibody screen Result Value Ref Range Expires at 2359 on: 09/06/2016 Hemogram Result Value Ref Range WBC 17.3 (H) 4.0 - 9.5 x10(3)/mcL RBC 4.85 4.58 - 5.54 x10(6)/mcL Hemoglobin 15.0 13.7 - 16.5 gm/dL Hematocrit 43.8 40.5 - 48.5 % MCV 90.3 82.9 - 93.1 fL MCH 30.9 27.5 - 32.1 pg MCHC 34.2 32.0 - 35.7 gm/dL Platelets 264 145 - 357 x10(3)/mcL RDWSD 41.0 36.0 - 45.0 fL RDWCV 12.5 11.4 - 13.8 % MPV 9.6 7.6 - 12.9 fL nRBC % Auto 0.0 % nRBC Abs Auto 0.000 0.000 - 0.000 x10(3)/mcL Differential, Automated Result Value Ref Range Neutrophils % 86.2 % Neutr Abs (ANC) 14.89 (H) 1.70 - 6.10 x10(3)/mcL Lymphocytes % 6.1 % Lymphocytes Abs 1.1 0.9 - 3.2 x10(3)/mcL Monocytes % 6.6 % Monocyte Abs 1.1 (H) 0.3 - 0.9 x10(3)/mcL Eosinophils % 0.1 % Eosinophils Abs 0.0 0.0 - 0.4 x10(3)/mcL Basophils % 0.2 % Basophils Abs 0.0 0.0 - 0.1 x10(3)/mcL Immature Gran % 0.80 % [place] Gran Abs 0.14 (H) 0.00 - 0.04 x10(3)/mcL Gold Tube HOLD Result Value Ref Range Gold Hold Sample in lab. ABORH Recheck Status Result Value Ref Range ABORH Type Recheck Completed Radiology: CXR - clear lungs, no pneumothorax or sq emphysema Abd/pelvis/TLS - no lumbar fracture, no visceral injury At least three lateral rib fx noted - no clear marked displacement Assessment/Plan: 10 foot fall with three rib fx in obese male - appears to be isolated Pain control Spirometry 02 sat monitoring No evidence of L spine fracture With distracting rib fx will obtain CT of the T spine to exclude fracture CT of chest to exclude occult pneumothorax Left radius fracture Orthopedics consultation Splint [x] I saw and evaluated the patient. I reviewed Dr. Osorio's note and agree with the findings and plans as documented GHANSHYAM CAMARA MD 09/03/2016 Alex Osorio MD - 09/03/2016 9:29 PM EST TRAUMA & ACUTE SURGICAL CARE ADMISSION HISTORY AND PHYSICAL Patient Name: Iain Go Level of Activation: alert MR#: [id number] [ ]Scene Call or [X]Hospital Transfer : [id number] CC/MECHANISM OF INJURY: 51 y.o. Male s/p fall from ladder HISTORY OF PRESENT ILLNESS: Iain Go is a 51 y.o. male presents to [facility] s/p fall from ladder. Description of events leading up to injury includes pt was on ladder trying to remove snow from roof, appx 8' high and the feet kicked out. He denies LOC. Brought to OSH found to have hypoxia (baseline) put on supplemental O2, and R rib fractures 5-7 in addition to R distal radial fracture. Pt says he has been experiencing SOBfor some time now and sees a specialist for this Primary survey revealed: intact airway, equal breath sounds/respirations, present 2+ peripheral pulses with stable vital signs and no signs of bleeding, GCS 15 (6 - Follows simple motor commands, 5 - Alert and oriented, 4 - Opens eyes on own), and complete exposure. Secondary survey is as follows. PAST MEDICAL AND SURGICAL HISTORY: HTN Hx of traumatic surgeries in RUE ALLERGIES: No Known Allergies MEDICATIONS: Lisinopril-HCTZ 20-25 tab QD FAMILY HISTORY: non-contributory in any family member SOCIAL HISTORY: Alcohol: rare Tobacco: none Drug: denies REVIEW OF SYSTEMS: complete 10 system ROS performed with pertinent findings below. Pertinent items are noted in HPI. PHYSICAL EXAM: VITALS: There were no vitals filed for this visit. There is no height or weight on file to calculate BMI. obese GENERAL: alert, awake and no apparent distress HEAD: Normocephalic, without obvious abnormality, atraumatic FACE: Pupils: equal, round, reactive to light, no periorbital ecchymoses; Tympanic Membranes: clear to visualization; Midface: no tenderness, no swelling, no contusions, no lacerations and no abrasions over entire face Oropharynx: chronic decaying teeth, nonbloody, moist mucous membranes, no lacerations, no malocclusion and no chipped or missing teeth NECK: in collar, no tenderness to palpation, trachea midline, no masses, no swelling, no contusions and no abrasions LUNG/chest: tender over L lateral chest wall, equal, clear breath sounds bilaterally and no crepitus CARDIAC: Regular rate and rhythm or without murmur or extra heart sounds ABDOMEN/GI: soft, non-tender, non-distended, no abrasions and no contusions PELVIS: pain over R hip, stable to AP and/or lateral compression RECTAL: Sphincter tone normal with no gross blood; Voluntary anal contraction normal EXTREMITIES: LUE in splint, no gross deformity/open wound, RUE with old surgical scars well healed, normal and symmetric movement, normal range of motion, no joint swelling SPINE: no deformity, no stepoffs, no tenderness to palpation and no abrasions over cervical spine, thoracic spine and/or lumbar spine SKIN: no lacerations, abrasions or contusions on complete skin exam NEURO: Mental Status: awake and alert, oriented to time, date, person Cranial Nerves: CN II - XII intact Motor: normal 5/5 strength in all tested muscle groups Sensory: no sensory deficits noted LABORATORY: Recent Results (from the past 24 hour(s)) L-Lactate2 Whole Blood Result Value Ref Range Lactate WB 2.8 (H) 0.5 - 2.2 mmol/L Basic Metabolic Panel (non-fasting) Result Value Ref Range Glucose Lvl 139 65 - 199 mg/dL BUN 16 10 - 20 mg/dL Creatinine 1.10 0.80 - 1.50 mg/dL Sodium 138 135 - 145 mmol/L Potassium 4.8 3.5 - 5.0 mmol/L Chloride 103 98 - 107 mmol/L CO2 22 22 - 31 mmol/L Anion Gap 13 5 - 15 mmol/L Calcium 8.4 (L) 8.5 - 10.5 mg/dL Estimated GFR >60 >=60 Prothrombin Time Result Value Ref Range PT 14.3 12.0 - 15.0 sec INR 1.1 0.9 - 1.1 APTT Result Value Ref Range PTT 25 25 - 35 sec Ethanol Level Result Value Ref Range Ethanol Lvl <100 mg/L Antibody screen Result Value Ref Range Expires at 2359 on: 09/06/2016 Hemogram Result Value Ref Range WBC 17.3 (H) 4.0 - 9.5 x10(3)/mcL RBC 4.85 4.58 - 5.54 x10(6)/mcL Hemoglobin 15.0 13.7 - 16.5 gm/dL Hematocrit 43.8 40.5 - 48.5 % MCV 90.3 82.9 - 93.1 fL MCH 30.9 27.5 - 32.1 pg MCHC 34.2 32.0 - 35.7 gm/dL Platelets 264 145 - 357 x10(3)/mcL RDWSD 41.0 36.0 - 45.0 fL RDWCV 12.5 11.4 - 13.8 % MPV 9.6 7.6 - 12.9 fL nRBC % Auto 0.0 % nRBC Abs Auto 0.000 0.000 - 0.000 x10(3)/mcL Differential, Automated Result Value Ref Range Neutrophils % 86.2 % Neutr Abs (ANC) 14.89 (H) 1.70 - 6.10 x10(3)/mcL Lymphocytes % 6.1 % Lymphocytes Abs 1.1 0.9 - 3.2 x10(3)/mcL Monocytes % 6.6 % Monocyte Abs 1.1 (H) 0.3 - 0.9 x10(3)/mcL Eosinophils % 0.1 % Eosinophils Abs 0.0 0.0 - 0.4 x10(3)/mcL Basophils % 0.2 % Basophils Abs 0.0 0.0 - 0.1 x10(3)/mcL Immature Gran % 0.80 % [place] Gran Abs 0.14 (H) 0.00 - 0.04 x10(3)/mcL Gold Tube HOLD Result Value Ref Range Gold Hold Sample in lab. ABORH Recheck Status Result Value Ref Range ABORH Type Recheck Completed RADIOLOGY: FAST Scan - not done CXR - No acute pathology CT Chest/Abd/pelvis/T/L- 1. No injuries to the internal abdominal or pelvic organs. 2. Subcutaneous hematomas in the left flank. 3. Left-sided rib fractures 5-7 4. No spine fracture Extremities- LUE Wrist - per OSH read: distal radial fx Incidental Radiographic Findings: None Procedures Performed: Intubation: No Summers Cath: No Central Line: No Chest Tube: No Sutures: No Other: Assessment/Summary of Injuries: 51 y.o. male s/p fall. Pt was on ladder cleaning snow off roof, slipped out. No LOC. GCS 15. Primaryintact. Injuries: 1. L 5-7 rib fx 2. L distal radial fx Plan: ?? Admit to Trauma Surgery Service in good condition, Ghanshyam Mares MD, attending ?? NPO while awaiting final recs from ortho ?? IV Fluids: LR@100/hr ?? Consulting Services and plans: 1. Orthopedics: LUE radial fx plan pending ?? Spine status: Cleared ?? Pain control: APAP, dPCA ?? DVT prophylaxis: lovenox 40mg QHS ?? GI prophylaxis: pepcid while NPO ?? Tertiary survey in AM ?? DISPO: floor ALEX OSORIO MD 09/03/2016 documented in this encounter ED Notes Devonte Mccracken - 09/03/2016 9:31 PM EST Emergency Department Iain Go is a 51 y.o. male who presents in transfer from [facility] with multiple left-sided rib fractures as well as left radial fracture after a fall from anapproximate 8 foot ladder. History of Present Illness / Review of Systems The patient is resting comfortably in the bed. Arrives with c-collar in place. Physical Exam: I reviewed the patient???s vitals as recorded in the electronic medical record and ED nursing notes.The patient was non-toxic appearing and in no obvious distress. Assessment/Plan: This 51 y.o. male was transferred from an outside hospital emergency department to receive specialtycare provided by the Trauma Surgical service for ongoing care and evaluation. I discussed the case with resident/fellow of the accepting service. The patient was deemed to be stable and not requiring significant involvement from the attending emergency physician at this time. The accepting service hasassumed further care of the patient. Please see their notes for any further clinical details. DEVONTE MCCRACKEN MD 09/03/2016 Devonte Mccracken MD Resident 09/03/16 2134 Associated attestation - Devonte Olivera MD - 09/06/2016 10:31 PM EST ED ATTENDING ATTESTATION NOTE The patient was seen in conjunction with Dr. Mccracken, the resident physician. I have independently performed the galicia portions of the history and physical exam. I have reviewed the nursing notes, vitalsigns, and all diagnostic studies personally including labs, imaging studies and EKGs. I have discussed the details of the case with the resident and agree with the assessment and plan as described in the resident note above unless noted otherwise below. Brief Summary: 51 y/o male transferred as a trauma alert from osh for multiple rib fractures and wrist fx. Pt was a trauma alert and trauma was at bedside on arrival. Pt is alert and conversant. Care assumed by trauma team Final Assessment: trauma with rib and wrist fracture documented in this encounter Miscellaneous Notes Plan of Care - Demetrio Ureña OT - 09/04/2016 4:13 PM EST Problem: Patient Care Overview Goal: Plan of Care Review Outcome: Ongoing (Interventions Implemented as Appropriate) 09/04/16 1611 Coping/Psychosocial Plan Of Care Reviewed With patient Occupational Therapy Evaluation Assessment: Pt has been seen by OT for evaluation, please refer to associated flowsheet data for details. Pt demonstrates the ability to perform basic ADL???s with assistance from family. Anticipate that pt will return home with assistance. Do not anticipate further OT needs. Pager: [phone] DEMETRIO UREÑA OT 09/04/2016 Occupational Therapy Rehabilitation Department Goal: Discharge Needs Assessment Outcome: Ongoing (Interventions Implemented as Appropriate) 09/04/16 1305 09/04/16 1611 Discharge Needs Assessment Equipment Needed After Discharge cane, straight;shower chair -- Discharge Facility/Level Of Care Needs -- (To sister and brother inlaw home) Plan of Care - Brandy Hodgson PT - 09/04/2016 1:09 PM EST Problem: Patient Care Overview Goal: Plan of Care Review Outcome: Ongoing (Interventions Implemented as Appropriate) 09/04/16 1305 Coping/Psychosocial Plan Of Care Reviewed With patient Plan of Care Review Progress progress toward functional goals as expected Physical Therapy Assessment Pt seen for skilled PT evaluation Treatment Number: 1 Please see the Rehab Evaluation Summaries report for objective data and specifics of today???s session. Pt tolerated rx well and is demonstrating functional gains. He is functionally ready for d/c home with his sister and brother in law's assist as needed. He is safe with ambulation with a cane on levels, should have close supervision on steps (only 1 into sister's house). Pertinent History of Current Problem: (fell from ladder - broke 3 ribs (left) and left radius) Staff Mobility Recommendations: ambulate with cane independently Precautions/Restrictions: fall, weight bearing Weight-Bearing Status Extremity Weight Bearing Status: left upper extremity Left Upper Extremity (Weight Bearing Status): nonweight bearing Anticipated Physical Therapy Frequency: evaluation only Anticipated Equipment Needs at Discharge: standard cane Anticipated Discharge Disposition: home with assist (sister's home) Pager: [phone] BRANDY HODGSON, PT 09/04/2016 Inpatient Physical Therapy Goal: Discharge Needs Assessment Outcome: Ongoing (Interventions Implemented as Appropriate) 09/04/16 1305 Discharge Needs Assessment Concerns To Be Addressed no discharge needs identified Equipment Needed After Discharge cane, straight;shower chair Discharge Disposition home or self-care Activity/Self Care Review of Systems Equipment Currently Used at Home none Current Health Anticipated Changes Related to Illness inability to work Problem: Fracture Orthopaedic (Adult) Intervention: Promote Functional Ability/Mobility 09/04/16 1305 Activity Activity Type ambulated in garcia Safety Interventions Environmental Safety Modification assistive device/personal items within reach Restraint Interventions LUE Range Of Motion AROM (active range of motion) performed Initial Assessments - Ely Campos RN - 09/04/2016 12:55 PM EST Office of Care Management Initial Assessment Ely Campos RN reviewed record and discussed patient with Care Team. Source of Information: patient and eDH Introduced self/reviewed role; services accepted. Reason for Hospitalization: 51 yo male fell approximately 10 feet off a ladder while cleaning snow from a roof Injuries include: 1. L 5-7 rib fx 2. L distal radial fx Past Medical History Diagnosis Date ??? 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 Current Functional Ability: Ambulating with cane, reports dressing himself upper and lower today Functional Status Prior to Admission: Independent with ADL's/IADL's Home Environment: Lives by himself normally--states he only has to go downstairs to cellar to load wood stove Social & Family Supports/Community Resources: Sister Kendy Shaikh and brother in law present and supportive Behavioral Health History: Denies behavioral health history Substance Use/Abuse: Reports drinking 2-3 beers a day after work and about a 12 pack over the weekend, chews tobacco, denies use of illicit drugs Other Pertinent/Service Specific Information: None Health/Prescription Coverage: Primary Insurance: Workman's Compensation Secondary Insurance: BCBS Prescription Coverage: through [facility] Preferred Pharmacy: [facility] [place] [place] Other: None Primary Care Provider: No PCP. Reports going to [facility] as walk in when needed. Clinic called and reported they have not seen him since March 2014. First appointment not available for another month- will discuss further with patient Patient/Caregiver Goals of Treatment: Get back to my house and get to work Potential Needs for Transition of Care: Rehab/SNF: N/A Home Health: N/A DME: he was given cane by PT, no other DME needed Dialysis: N/A Community Resources: None Transportation: Sister Kendy Shaikh- present at time of assessment Other: None Anticipated Barriers to Discharge/Special Considerations: None Plan: Discharge home with sister Kendy. Will be staying there temporarily. Sister/grcshmv-ut-hat will be helping with loading wood once he returns to his house. A member of the Care Management team will continue to monitor progress, follow for continuity of care and assist with transition of care planning. Ely Campos RN Pager: [phone] Consult Note - Jenae Luna MD - 09/04/2016 6:19 AM EST Orthopaedic Emergency Department Note Attending: Yuliet Issue: L distal radius fx Subjective: Feeling well this morning, arm is sore but denies numbness/tingling. Sore in groin but otherwise no complaints Objective: Temp: [37.1 ??C (98.8 ??F)-37.5 ??C (99.5 ??F)] Heart Rate: [86-95] Resp: [18-30] BP: (141-172)/(86-107) SpO2: [91 %-97 %] Heart Rate from SPO2: [86 bpm-93 bpm] Gen- NAD, awake, alert, appr Left Upper Extremity Exam- LUE in sugartong splint. Painless range of motion of shoulder / elbow. Sensation intact to light touch in Ax/M/R/U/LABC distributions Motor intact (5/5) shoulder abduction, elbow flexion/extension, alarm mechanism adjuster, EPL, AIN, IO. Brisk capillary refill distally 2+ radial pulse Right Upper Extremity Painless ROM of shoulder, elbow, wrist, and fingers. Amputated little finger from previous injury Sensation intact to light touch in Ax/M/R/U/LABC distributions Motor intact (5/5) shoulder abduction, wrist motion, elbow flexion/extension, alarm mechanism adjuster, EPL, AIN, IO. Palpable radial pulse Left Lower Extremity Exam- Discomfort in groin to hip flexion / extension No effusion in knee / ankle No ecchymosis, erythema, or overlying skin changes. Sensation intact to light touch in Saphenous/Sural/LFC/Femoral/MP/LP/T/DP/SP distributions Motor intact (5/5) hip flexion/extension, knee flexion/extension, ankle flexion/extension, EHL/FHL/TA Brisk capillary refill distally 2+ DP/PT pulses Right Lower Extremity Exam- Discomfort in groin to hip flexion / extension, worse than Left side No effusion in knee / ankle No ecchymosis, erythema, or overlying skin changes. Sensation intact to light touch in Saphenous/Sural/LFC/Femoral/MP/LP/T/DP/SP distributions Motor intact (5/5) hip flexion/extension, knee flexion/extension, ankle flexion/extension, EHL/FHL/TA Brisk capillary refill distally 2+ DP/PT pulses Imaging: XR wrist: comminuted, mildly impacted intra-articular fracture of the L distal radius. XR Wrist post reduction: Mildly impacted intra-articular fracture with improved dorsal dislacement CT Chest: 1. Nondisplaced left fifth, sixth and seventh lateral rib fractures. 2. No evidence of intrathoracic soft tissue or vascular injury. CT thorax / abd / pelvis: No acute fracture or malalignment Assessment/Plan: 51 y.o. male with L distal radius fx, no other injuries identified on ortho tert this am. Minimally displaced, splinted, plan for fu in 2 weeks in general ortho with XR L wrist - Activity- NWB LUE, splint - DVT prophylaxis- per trauma - Medications prescribed - None JENAE LNUA MD Orthopaedic Surgery Plan of Care - Yesi Wheat RN - 09/04/2016 4:18 AM EST Problem: Skin Integrity Impairment, Risk/Actual (Adult) Goal: Identify Related Risk Factors and Signs and Symptoms Related risk factors and signs and symptoms are identified upon initiation of Human Response Clinical Practice Guideline (CPG) Outcome: Ongoing (Interventions Implemented as Appropriate) 09/04/168 Skin Integrity Impairment, Risk/Actual Skin Integrity Impairment, Risk/Actual: Related Risk Factors traumatic injury OUTCOME EVALUATION NOTE: OUTCOME SUMMARY: Pt resting in bed, no adverse events over night. Splint to LUE c/d/i. Pt educated on use of SHIPFITTER HELPER, voiced understanding. PLAN MOVING FORWARD: -[X]Pain Control -[X]Ortho consult -[X]ongoing discharge planning INDIVIDUALIZED FALL PREVENTION: Assistance: -1-assist with walker Supervision: -[X]Hands-on for all transfers and ambulation -[]Eyes-on for all transfers and ambulation -[]Arms-Reach for all transfers and ambulation Surveillance: -[X]Bed Alarm/Chair Alarm -[X]Purposeful Rounding -[X]Team Care -[X]Bedside Nurse Knowledge Exchange CPG OUTCOME EVALUATION: Goal: Skin Integrity/Wound Healing Patient will demonstrate the desired outcomes by discharge/transition of care. Outcome: Ongoing (Interventions Implemented as Appropriate) 09/04/16 0408 Skin Integrity Impairment, Risk/Actual (Adult) Skin Integrity/Wound Healing making progress toward outcome Problem: Fracture Orthopaedic (Adult) Goal: Signs and Symptoms of Listed Potential Problems Will be Absent, Minimized or Managed (FractureOrthopaedic) Signs and symptoms of listed potential problems will be absent, minimized or managed by discharge/transition of care (reference Fracture Orthopaedic (Adult) CPG). Outcome: Ongoing (Interventions Implemented as Appropriate) 09/04/16 0408 Fracture Orthopaedic Problems Assessed (Orthopaedic Fracture) all Problems Present (Orthopaedic Fracture) functional deficit/ self-care deficit;situational response;pain Consult Note - Babita Monae MD - 09/03/2016 11:01 PM EST Orthopaedic Emergency Department Note Attending: Yuliet Go is a 51 y.o. male who presents to see us in consultation today at the request of Devonte Olivera MD for left distal radius fracture Chief Complaint: S/p fall from ladder History of Present Illness: Iain Go is a 51 y.o. male left hand dominant, s/p fall from ladder, presenting to [facility] from OSH for further evaluation. Patient was on a roof ~8ft high trying to clean snow, when the legs of the ladder kicked out and he fell on his back. He denies any LOC and did not hit his head. Had immediate lowe back pain and L wrist pain. At OSH, he was found to be hypoxic (per his baseline), right rib fractures 5-7, and right distal radius fracture. Currently complains of lower back pain and bilateral groin pain. No bleeding or clotting disorder Past Medical History: - HTN - Hypoxia Past Surgical History: Right 5th digit removal No current facility-administered medications on file prior to encounter. No current outpatient prescriptions on file prior to encounter. Home medications: (Not in a hospital admission) Family History: Negative for bleeding/clotting disorders or anesthetic complications. History reviewed. No pertinent family history. 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 Not on file Smokeless Tobacco ??? Not on file Review of Systems: As per HPI, otherwise negative Objective: Temp: -- Heart Rate: [86-95] Resp: [18-30] BP: (148-172)/(90-107) SpO2: [91 %-97 %] Heart Rate from SPO2: [86 bpm-93 bpm] Gen- NAD, awake, alert, appr HEENT- NC, AT CV- RRR checked peripherally Pulm- Increased WOB when moving, satting in the 90s on 5L NC Skin- Intact Psych- Nl mood and affect Left Upper Extremity Exam- LUE in sugartong splint from OSH. Skin intact upon removal of the splint Painless range of motion of shoulder / elbow. Discomfort in wrist motion Sensation intact to light touch in Ax/M/R/U/LABC distributions Motor intact (5/5) shoulder abduction, elbow flexion/extension, alarm mechanism adjuster, EPL, AIN, IO. Discomfort to wrist extension / flexion Brisk capillary refill distally 2+ radial pulse Right Upper Extremity Painless ROM of shoulder, elbow, wrist, and fingers. Amputated little finger from previous injury Sensation intact to light touch in Ax/M/R/U/LABC distributions Motor intact (5/5) shoulder abduction, wrist motion, elbow flexion/extension, alarm mechanism adjuster, EPL, AIN, IO. Palpable radial pulse Left Lower Extremity Exam- Discomfort in groin to hip flexion / extension No effusion in knee / ankle No ecchymosis, erythema, or overlying skin changes. Sensation intact to light touch in Saphenous/Sural/LFC/Femoral/MP/LP/T/DP/SP distributions Motor intact (5/5) hip flexion/extension, knee flexion/extension, ankle flexion/extension, EHL/FHL/TA Brisk capillary refill distally 2+ DP/PT pulses Right Lower Extremity Exam- Discomfort in groin to hip flexion / extension, worse than Left side No effusion in knee / ankle No ecchymosis, erythema, or overlying skin changes. Sensation intact to light touch in Saphenous/Sural/LFC/Femoral/MP/LP/T/DP/SP distributions Motor intact (5/5) hip flexion/extension, knee flexion/extension, ankle flexion/extension, EHL/FHL/TA Brisk capillary refill distally 2+ DP/PT pulses Imaging: XR wrist: comminuted, mildly impacted intra-articular fracture of the L distal radius. XR Wrist post reduction: Mildly impacted intra-articular fracture with improved dorsal dislacement CT Chest: 1. Nondisplaced left fifth, sixth and seventh lateral rib fractures. 2. No evidence of intrathoracic soft tissue or vascular injury. CT thorax / abd / pelvis: No acute fracture or malalignment Procedures: (Closed reduction and casting/splinting) After a discussion pertaining to the risks and benefits of closed reduction and casting, A reduction maneuver was performed and confirmed with mini c-arm fluoroscopy. A splint was applied for left distal radius fracture Patient tolerated the procedure well. Post-reduction imaging studies were obtained and found to be adequate. Assessment/Plan: 51 y.o. male LHD who presents with left distal radius fracture after fall from ladder, s/p reduction and splint placement - Activity- NWB LUE - DVT prophylaxis- None, per trauma - Antibiotics: None, per trauma - Medications prescribed - None Babita Monae MD Orthopaedic Surgery documented in this encounter Plan of Treatment Upcoming Encounters Date Type Specialty Care Team Description 06/11/2022 Laboratory Appointment Lab 06/11/2022 Office Visit Nephrology Mustapha Anderson MD [facility] NEPHROLOGY DEPT [place], [place] [address] ( shanna) 07/01/2022 Office Visit Neurology Devendra Mayes APRN [facility] [place], [place] [address] ( shanna) documented as of this encounter Procedures Procedure Name Priority Date/Time Associated Comments Diagnosis XR CHEST PA AND LATERAL Routine 09/04/2016 9:57 AM Results for this EST procedure are i n the results section. HEMOGRAM STAT 09/04/2016 4:57 AM Results f or this EST procedure are i n the results section. DIFFERENTIAL, AUTOMATED STAT 09/04/2016 4:57 AM Results for this EST procedure are i n the results section. CBC (WITH DIFF) STAT 09/04/2016 4:57 AM EST BASIC METABOLIC PANEL STAT 09/04/2016 4:57 AM Results for this (NON-FASTING) EST procedure are in the results section. XR WRIST 3 VIEWS LEFT STAT 09/03/2016 11:58 Re sults for this PM EST procedure are i n the results section. REQUEST FOR 2ND READ DX STAT 09/03/2016 10:47 Results for this WRIST PM EST procedure are i n the results section. CT THORACIC SPINE STAT 09/03/2016 10:08 Result s for this RECONSTRUCTION PM EST procedure are in the results section. CT CHEST W CONTRAST STAT 09/03/2016 10:08 Resu lts for this PM EST procedure are i n the results section. ABORH RECHECK STATUS STAT 09/03/2016 9:37 PM R esults for this EST procedure are i n the results section. HEMOGRAM STAT 09/03/2016 9:37 PM Results f or this EST procedure are i n the results section. DIFFERENTIAL, AUTOMATED STAT 09/03/2016 9:37 PM Results for this EST procedure are i n the results section. GOLD TUBE HOLD STAT 09/03/2016 9:37 PM Results for this EST procedure are i n the results section. ABO/RH TYPING STAT 09/03/2016 9:37 PM Results for this EST procedure are i n the results section. APTT STAT 09/03/2016 9:37 PM Results f or this EST procedure are i n the results section. PROTHROMBIN TIME STAT 09/03/2016 9:37 PM Resul ts for this EST procedure are i n the results section. CBC (WITH DIFF) STAT 09/03/2016 9:37 PM EST ANTIBODY SCREEN STAT 09/03/2016 9:37 PM Result s for this EST procedure are i n the results section. TYPE AND SCREEN STAT 09/03/2016 9:37 PM ([facility]/CGP/MAGUI) EST ETHANOL LEVEL STAT 09/03/2016 9:37 PM Results for this EST procedure are i n the results section. BASIC METABOLIC PANEL STAT 09/03/2016 9:37 PM Results for this (NON-FASTING) EST procedure are in the results section. L-LACTATE2 WHOLE BLOOD Routine 09/03/2016 9:33 PM Results for this EST procedure are i n the results section. REQUEST FOR 2ND READ CT STAT 09/03/2016 7:12 PM Results for this ABDOMEN AND PELVIS EST procedure are in the results section. [...] tified. Bowen Huff MD IMG DX ORDERABLES XR Chest PA & Lateral (Generic) (09/04/2016 9:57 AM EST) Anatomical Region Laterality Modality Chest N/A Digital Radiography Specimen (Source) Anatomical Location Collection Method / Collectio n Time Received Time / Laterality Volume Impressions 09/04/2016 11:13 AM EST Mild atelectasis at the left base. Sequela of multiple left-sided rib fract ures. Narrative 09/04/2016 11:13 AM EST EXAMINATION: XR CHEST PA AND LATERAL (GENERIC) CLINICAL HISTORY: s/p fall s/p L rib fx evaluate pulmonary process TECHNIQUE: PA and lateral chest. COMPARISON: September 03, 2016. FINDINGS: Multiple displaced left-sided rib fractu res are seen again. Mild atelectasis at the left base. Trace blunting of the pos terior costophrenic angles, which based on the prior CT may be just due to promi nent pleural fat. Size of the heart and width of the mediastinum are within norm al limits. The projection angle of the PA chest radiograph is quite markedly ro tated. Degenerative changes of the spine. Ossicle adjacent to the clavicula r coracoid interval has a chronic appearance. Procedure Note Summer Wellington MD - 2016 EXAMINATION: XR CHEST PA AND LATERAL (zoiduIC) CLINICAL HISTORY: s/p fall s/p L rib fx evaluate pulmonary process TECHNIQUE: PA and lateral chest. COMPARISON: September 03, 2016. FINDINGS: Multiple displaced left-sided rib fractu res are seen again. Mild atelectasis at the left base. Trace blunting of the pos terior costophrenic angles, which based on the prior CT may be just due to promi nent pleural fat. Size of the heart and width of the mediastinum are within norm al limits. The projection angle of the PA chest radiograph is quite markedly ro tated. Degenerative changes of the spine. Ossicle adjacent to the clavicula r coracoid interval has a chronic appearance. IMPRESSION Mild atelectasis at the left base. Sequela of multiple left-sided rib fract ures. Ghanshyam Camara MD IMG DX ORDERABLES (ABNORMAL) Differential, Automated (09/04/2016 4:57 AM EST) [facility] Method Time Signature Neutrophils % 78.7 % [facility] Neutr Abs (ANC) 9.66 (H) 1.70 - [facility] 6.10 [facility] x10(3)/[facility] LAB[facility] Lymphocytes % 10.7 % [facility] Lymphocytes Abs 1.3 0.9 - 3.2 [facility] x10(3)/[facility] LABORATORY Monocytes % 9.1 % [facility] Monocyte Abs 1.1 (H) 0.3 - 0.9 [facility] x10(3)/[facility] LABORATORY Eosinophils % 0.6 % [facility] Eosinophils Abs 0.1 0.0 - 0.4 [facility] x10(3)/[facility]OR[facility] Basophils % 0.3 % [facility] Basophils Abs 0.0 0.0 - 0.1 [facility] x[facility] Immature Gran % 0.60 % [facility] Comment: Immature granulocytes(IG's)percentage an d absolute count will include metamyelocytes, myelocytes, and promyelo cytes. Blood smears from CBCs yielding IG's will be scanned manually for concor dance. If this scan disagrees with the automated IG or if promyelocytes are not ed, a manual differential will be performed. [place] Gran Abs 0.07 (H) 0.00 - 0.04 x10(3)/[facility] LABORATORY Specimen Anatomical Collection Method Collection Time Receive d Time (Source) Location / / Volume Laterality Blood specimen 09/04/2016 4:57 AM 017 5:03 (specimen) EST AM EST Resulting Agency Comment Spec In Lab Devonte Olivera MD HEMATOLOGY ORDERABLES Performing Organization Address City/State/ZIP Code Phon e Number [place] [phone] (ABNORMAL) Hemogram (09/04/2016 4:57 AM EST) Analysis Performed At Patho logist Time Signature WBC 12.3 (H) 4.0 - 9.5 [facility] x10(3)/[facility] LABORATORY RBC 4.44 (L) 4.58 - [facility] 5.54 [facility] x10(6)/[facility] LABORATORY Hemoglobin 13.6 (L) 13.7 - [facility] 16.5 gm/dL [facility] Hematocrit 40.0 (L) 40.5 - [facility] STEFANIE 48.5 % [facility] MCV 90.1 82.9 - [facility] 93.1 [facility] MCH 30.6 27.5 - [facility] ST[facility] 32.1 pg [facility] MCHC 34.0 32.0 - [facility] 35.7 gm/dL [facility] Platelets 214 145 - 357 [facility] x10(3)/[facility] LABORATORY RDWSD 42.1 36.0 - [facility] STEFAINE 45.0 [facility] LABORATORY RDWCV 12.9 11.4 - [facility] STEFANIE 13.8 % [facility] MPV 9.4 7.6 - 12.9 [facility] LABORATORY nRBC % Auto 0.0 % [facility] nRBC Abs Auto 0.000 0.000 - [facility] 0.000 [facility] x10(3)/[facility] LABORATORY Specimen Anatomical Collection Method Collection Time Receive d Time (Source) Location / / Volume Laterality Blood specimen 09/04/2016 4:57 AM 017 5:03 (specimen) EST AM EST Resulting Agency Comment Spec In Lab Devonte Olivera MD HEMATOLOGY ORDERABLES Performing Organization Address City/State/[place] [address] (ABNORMAL) Basic Metabolic Panel (non-fasting) (09/04/2016 4:57 AM EST) athologist Signature Glucose Lvl 129 65 - 199 [facility] mg/dL [facility] Comment: Diabetes: >=200 mg/dL plus symp toms BUN 18 10 - 20 mg/dL [facility] Creatinine 1.03 0.80 - 1.50 mg/dL [facility] Comment: Please note that the pediatric reference intervals supplied above were not validated at [facility]. Results from pediatri c patients should be interpreted in conjunction to the patient's age, height and muscle mass. Sodium 138 135 - 145 mmol/L [facility] Potassium 4.3 3.5 - 5.0 mmol/L [facility] Comment: Please note: ??Patients with WBC >100,00 0 may have falsely elevated Potassium levels. ??For accurate Potassium quantif ication in these patients send serum separator tube (gold top) for subsequent determinations. ??Contact the Clinical Chemistry Laboratory if there are any qu estions. Chloride 105 98 - 107 mmol/L [facility] CO2 22 22 - 31 mmol/L [facility] Anion Gap 11 5 - 15 mmol/L [facility] Calcium 8.1 (L) 8.5 - 10.5 mg/dL [facility] Estimated GFR >60 >=60 DYLON [facility] Comment: This estimated GFR (eGFR) value was calc ulated using the MDRD equation which has been validated on patients between t he ages of 18 and 70. The MDRD should not be used to assess kidney function in patients < 18 years of age or in patients with extremes of body mass, or in patients with acute kidney failure. This value should be multiplied by 1.2 f or patients. For further information please copy and past e the following links into your internet browser. [email or web address] [email or web address]/DHMCnkf Specimen Anatomical Collection Method Collection Time Receive d Time (Source) Location / / Volume Laterality Blood specimen 09/04/2016 4:57 AM 017 5:03 (specimen) EST AM EST Resulting Agency Comment Spec In Lab Devonte Olivera MD CHEMISTRY ORDERABLES Performing Organization Address City/State/ZIP Code Phon e Number [place] [phone] XR Wrist Complete Min 3 views Left (Generic) (09/03/2016 11:58 PM EST) Anatomical Region Laterality Modality Left Digital Radiography Specimen (Source) Anatomical Location Collection Method / Collectio n Time Received Time / Laterality Volume Impressions 09/04/2016 12:17 AM EST Unchanged alignment of the comminuted mildly impacted intra-articular left distal radius fracture, status post redu ction. I have personally reviewed the image(s) and the residents interpretation and agree with the findings, BERNY HIGGINS at 09/04/2016 12:17 AM Narrative 09/04/2016 12:17 AM EST EXAMINATION: XR WRIST COMPLETE MIN 3 VIEWS LEFT (GENERIC) CLINICAL HISTORY: s/p reduction of dista l radius TECHNIQUE: PA, oblique and lateral radio graphs of the left wrist COMPARISON: Radiograph of the left wrist 09/03/2016 FINDINGS: Unchanged alignment of the comminuted mi ldly impacted intra-articular fracture of the left distal radius. Unchanged annabelle earance of the dorsally displaced fracture fragments. No new fracture is i dentified.The scaphoid is not well evaluated as cast material limits fine o sseous and soft tissue detail. Carpal alignment is unchanged. Procedure Note Berny Higgins MD - 09/04/2016Formatti ng of this note might be different from the original. EXAMINATION: XR WRIST COMPLETE MIN 3 VIE WS LEFT (GENERIC) CLINICAL HISTORY: s/p reduction of dista l radius TECHNIQUE: PA, oblique and lateral radio graphs of the left wrist COMPARISON: Radiograph of the left wrist 09/03/2016 FINDINGS: Unchanged alignment of the comminuted mi ldly impacted intra-articular fracture of the left distal radius. Unchanged annabelle earance of the dorsally displaced fracture fragments. No new fracture is i dentified.The scaphoid is not well evaluated as cast material limits fine o sseous and soft tissue detail. Carpal alignment is unchanged. IMPRESSION Unchanged alignment of the comminuted mi ldly impacted intra-articular left distal radius fracture, status post redu ction. I have personally reviewed the image(s) and the residents interpretation and agree with the findings, BERNY HIGGINS at 09/04/2016 12:17 AM Devonte Olivera MD IMG DX ORDERABLES Request for 2nd read DX Wrist (09/03/2016 [...] No elbow join t effusion. Procedure Note Berny Higgins MD - 09/03/2016Formatti ng of this [...] proximal rad ius. Elbow joint is maintained. Devonte Olivera MD IMG OUTSIDE INTERPRETATION O RDERABLES CT Thoracic Spine Reconstruction (09/03/2016 10:08 PM EST) Anatomical Region Laterality Modality T-spine Computed Tomography Specimen (Source) Anatomical Location Collection Method / Collectio n Time Received Time / Laterality Volume Impressions 09/03/2016 11:11 PM EST No acute fracture or malalignment I have personally reviewed the image(s) and the residents interpretation and agree with the findings, BERNY HIGGINS at 09/03/2016 11:11 PM Narrative 09/03/2016 11:11 PM EST EXAMINATION: CT THORACIC SPINE RECONSTRUCTION CLINICAL HISTORY: trauma, s/p fall, rib fx's TECHNIQUE: ??CT of the thoracic spine ?? COMPARISON: CT of the chest 09/03/2016 FINDINGS: There are 12 rib-bearing thoracic verteb ra. Normal alignment of the thoracic spine. Evaluation is limited by motion a rtifact. Vertebral body heights and disc space heights are well-maintained. No ac [place] fracture or dislocation. There are disc degenerative changes in the lower t horacic spine characterized by subchondral sclerotic changes and margin al osteophytes. No central canal narrowing. Procedure Note Berny Higgins MD - 09/03/2016Formatti ng of this note might be different from the original. EXAMINATION: CT THORACIC SPINE RECONSTRU CTION CLINICAL HISTORY: trauma, s/p fall, rib fx's TECHNIQUE: CT of the thoracic spine COMPARISON: CT of the chest 09/03/2016 FINDINGS: There are 12 rib-bearing thoracic verteb ra. Normal alignment of the thoracic spine. Evaluation is limited by motion a rtifact. Vertebral body heights and disc space heights are well-maintained. No ac [place] fracture or dislocation. There are disc degenerative changes in the lower t horacic spine characterized by subchondral sclerotic changes and margin al osteophytes. No central canal narrowing. IMPRESSION No acute fracture or malalignment I have personally reviewed the image(s) and the residents interpretation and agree with the findings, BERNY HIGGINS at 09/03/2016 11:11 PM Devonte Olivera MD IMG CT ORDERABLES CT Chest w Contrast (09/03/2016 10:08 PM EST) Anatomical Region Laterality Modality Chest Computed Tomography Specimen (Source) Anatomical Location Collection Method / Collectio n Time Received Time / Laterality Volume Impressions 09/03/2016 11:09 PM EST Impression: 1. ??Nondisplaced left fifth, sixth and seventh lateral rib fractures. 2. ??No evidence of intrathoracic soft t issue or vascular injury. I have personally reviewed the image(s) and the residents interpretation and agree with the findings, BERNY HIGGINS at 09/03/2016 11:09 PM Narrative 09/03/2016 11:09 PM EST EXAMINATION: CT CHEST W CONTRAST CLINICAL HISTORY: trauma, fall, rib fx's TECHNIQUE: Helical CT of the chest was p erformed following intravenous administration of 75ml of Ominpaque 350. Multiplanar reformatted images were generated. COMPARISON: CT of the abdomen and pelvis 09/03/2016 ? FINDINGS: Lungs and airways: Large airways are pat ent. No focal airspace opacity. There is mild bibasal atelectasis. There are scat tered emphysematous changes throughout both lungs. Pleura and pericardium: No pericardial o r pleural effusion. No pneumothorax Heart and vasculature: Normal size. Norm al thoracic aorta. Mediastinum and hilar structures: No lym phadenopathy Limited views of the upper abdomen are n ormal. Osseous structures: Nondisplaced left 5, 6 and 7th ??lateral rib fractures. See separate dictation for reformats of the thoracic spine ? Procedure Note Berny Higgins MD - 09/03/2016Formatti ng of this note might be different from the original. EXAMINATION: CT CHEST W CONTRAST CLINICAL HISTORY: trauma, fall, rib fx's TECHNIQUE: Helical CT of the chest was p erformed following intravenous administration of 75ml of Ominpaque 350. Multiplanar reformatted images were generated. COMPARISON: CT of the abdomen and pelvis 09/03/2016 ? FINDINGS: Lungs and airways: Large airways are pat ent. No focal airspace opacity. There is mild bibasal atelectasis. There are scat tered emphysematous changes throughout both lungs. Pleura and pericardium: No pericardial o r pleural effusion. No pneumothorax Heart and vasculature: Normal size. Norm al thoracic aorta. Mediastinum and hilar structures: No lym phadenopathy Limited views of the upper abdomen are n ormal. Osseous structures: Nondisplaced left 5, 6 and 7th lateral rib fractures. See separate dictation for reformats of the thoracic spine ? IMPRESSION Impression: 1. Nondisplaced left fifth, sixth and se venth lateral rib fractures. 2. No evidence of intrathoracic soft tis milly or vascular injury. I have personally reviewed the image(s) and the residents interpretation and agree with the findings, BERNY HIGGINS at 09/03/2016 11:09 PM Devonte Olivera MD [facility] CT ORDERABLES ABORH Recheck Status (09/03/2016 9:37 PM EST) [facility] Method Time Signature ABORH Type Completed [facility]ORATORY Specimen Anatomical Collection Method Collection Time Receive d Time (Source) Location / / Volume Laterality Blood specimen 09/03/2016 9:37 PM 017 9:48 (specimen) EST PM EST Resulting Agency Comment Spec In Lab Devonte Olivera MD BLOOD BANK ORDERABLES Performing Organization Address City/State/[place] [address] Gold Tube HOLD (09/03/2016 9:37 PM EST) P athologist Signature Gold Hold Sample in [facility]. [facility] Specimen Anatomical Collection Method Collection Time Receive d Time (Source) Location / / Volume Laterality Blood specimen Venous Draw / 09/03/2016 9:37 PM 2016 9:43 (specimen) Unknown EST PM EST Devonte Olivera MD CHEMISTRY ORDERABLES Performing Organization Address City/State/[place] [address] (ABNORMAL) Differential, Automated (09/03/2016 9:37 PM EST) Patholo gist Method Time Signature Neutrophils % 86.2 % [facility] Neutr Abs (ANC) 14.89 (H) 1.70 - [facility] 6.10 [facility] x10(3)/[facility] LABORATORY Lymphocytes % 6.1 % [facility] Lymphocytes Abs 1.1 0.9 - 3.2 [facility] x10(3)/[facility] LABORATORY Monocytes % 6.6 % [facility] Monocyte Abs 1.1 (H) 0.3 - 0.9 [facility] x10(3)/[facility] LABORATORY Eosinophils % 0.1 % [facility] Eosinophils Abs 0.0 0.0 - 0.4 [facility] x10(3)/[facility] LABORATORY Basophils % 0.2 % [facility] Basophils Abs 0.0 0.0 - 0.1 [facility] x10(3)/[facility] LABORATORY Immature Gran % 0.80 % [facility] Comment: Immature granulocytes(IG's)percentage an d absolute count will include metamyelocytes, myelocytes, and promyelo cytes. Blood smears from CBCs yielding IG's will be scanned manually for concor dance. If this scan disagrees with the automated IG or if promyelocytes are not ed, a manual differential will be performed. [place] Gran Abs 0.14 (H) 0.00 - 0.04 x10(3)/mcL [facility] Specimen Anatomical Collection Method Collection Time Receive d Time (Source) Location / / Volume Laterality Blood specimen 09/03/2016 9:37 PM 017 9:43 (specimen) EST PM EST Resulting Agency Comment Spec In Lab Devonte Olivera MD HEMATOLOGY ORDERABLES Performing Organization Address City/State/[place] [address] (ABNORMAL) Hemogram (09/03/2016 9:37 PM EST) Analysis Performed At Patho logist Time Signature WBC 17.3 (H) 4.0 - 9.5 [facility] x10(3[facility] LABORATORY RBC 4.85 4.58 - [facility] ST[facility]ANIE 5.54 [facility] x10(6)/[facility] LABORATORY Hemoglobin 15.0 13.7 - [facility] 16.5 gm/dL [facility] Hematocrit 43.8 40.5 - [facility] 48.5 % [facility] MCV 90.3 82.9 - [facility] 93.1 [facility] LABORATORY MCH 30.9 27.5 - [place] ST[facility] 32.1 pg [facility] MCHC 34.2 32.0 - [facility] STEFANIE 35.7 gm/dL [facility] Platelets 264 145 - 357 [facility] x10(3)/[facility] LABORATORY RDWSD 41.0 36.0 - [facility] STEFANIE 45.0 [facility] LABORATORY RDWCV 12.5 11.4 - [facility] STEFANIE 13.8 % [facility] MPV 9.6 7.6 - 12.9 [facility] nRBC % Auto 0.0 % [facility] nRBC Abs Auto 0.000 0.000 - [facility] 0.000 [facility] x10(3)/[facility] LABORATORY Specimen Anatomical Collection Method Collection Time Receive d Time (Source) Location / / Volume Laterality Blood specimen 09/03/2016 9:37 PM 017 9:43 (specimen) EST PM EST Resulting Agency Comment Spec In Lab Devonte Olivera MD HEMATOLOGY ORDERABLES Performing Organization Address City/State/ZIP Code [place] [address] Antibody screen (09/03/2016 9:37 PM EST) Patholo gist Method Time Signature Ab Screen Negative [facility] LABORATORY Expires at 09/06/2016 [facility] CERVANTESSTEFANIE [id number] on: [facility] Specimen Anatomical Collection Method Collection Time Receive d Time (Source) Location / / Volume Laterality Blood specimen 09/03/2016 9:37 PM 017 9:48 (specimen) EST PM EST Resulting Agency Comment Spec In Lab Devonte Olivera MD BLOOD BANK ORDERABLES Performing Organization Address City/[facility]/[place] [address] ABO/Rh Typing (09/03/2016 9:37 PM EST) P athologist Signature ABORh Type O Pos [facility] Specimen Anatomical Collection Method Collection Time Receive d Time (Source) Location / / Volume Laterality Blood specimen 09/03/2016 9:37 PM 017 9:48 (specimen) EST PM EST Resulting Agency Comment Spec In Lab Devonte Olivera MD BLOOD BANK ORDERABLES Performing Organization Address City/[facility]/[place] [address] Ethanol Level (09/03/2016 9:37 PM EST) P athologist Signature Ethanol Lvl <100 mg/L [facility] Comment: Greater than 800 mg/L (0.08%) should be considered intoxicated. 3400 to 4500 mg/L (0.34 - 0.45%) is cons idered severe intoxication. Greater than 5500 mg/L (0.55%) is usuall y fatal. Specimen Anatomical Collection Method Collection Time Receive d Time (Source) Location / / Volume Laterality Blood specimen 09/03/2016 9:37 PM 017 9:43 (specimen) EST PM EST Resulting Agency Comment Spec In Lab Devonte Olivera MD CHEMISTRY ORDERABLES Performing Organization Address City/[facility]/ZIP Code Phon [place] [address] APTT (09/03/2016 9:37 PM EST) athologist Signature PTT 25 25 - 35 sec [facility] Comment: The recommended therapeutic range for fu ll dose, unfractionated heparin at [facility] is 80 ? 114 seconds. The use of the anti-Xa (heparin) level rather than the PTT is recommended for monitoring anticoagul ation intensity in critically ill patients receiving unfractionated hepari n by continuous IV infusion. Specimen Anatomical Collection Method Collection Time Receive d Time (Source) Location / / Volume Laterality Blood specimen 09/03/2016 9:37 PM 017 9:43 (specimen) EST PM EST Resulting Agency Comment Spec In Lab Devonte Olivera MD HEMATOLOGY ORDERABLES Performing Organization Address [facility] [place] [address] Prothrombin Time (09/03/2016 9:37 PM EST) athologist Signature PT 14.3 12.0 - 15.0 [facility] LABORATORY Comment: An INR <2.0 indicates adequate [...] be appropriate depending on c linical circumstances. INR 1.1 0.9 - 1.1 [facility] Specimen Anatomical Collection Method Collection Time Receive d Time (Source) Location / / Volume Laterality Blood specimen 09/03/2016 9:37 PM 017 9:43 (specimen) EST PM EST Resulting Agency Comment Spec In Lab Devonte Olivera MD HEMATOLOGY ORDERABLES Performing Organization Address City/[facility]/ZIP [facility] [place] [address] (ABNORMAL) Basic Metabolic Panel (non-fasting) (09/03/2016 9:37 PM EST) athologist Signature Glucose Lvl 139 65 - 199 [facility] mg/dL [facility] Comment: Diabetes: >=200 mg/dL plus symp toms BUN 16 10 - 20 mg/dL [facility] Creatinine 1.10 0.80 - 1.50 mg/dL [facility] Comment: Please note that the pediatric reference intervals supplied above were not validated at [facility]. Results from pediatri c patients should be interpreted in conjunction to the patient's age, height and muscle mass. Sodium 138 135 - 145 mmol/L [facility] Potassium 4.8 3.5 - 5.0 mmol/L [facility] Comment: Please note: ??Patients with WBC >100,00 0 may have falsely elevated Potassium levels. ??For accurate Potassium quantif ication in these patients send serum separator tube (gold top) for subsequent determinations. ??Contact the Clinical Chemistry Laboratory if there are any qu estions. Chloride 103 98 - 107 mmol/L [facility] CO2 22 22 - 31 mmol/L [facility] Anion Gap 13 5 - 15 mmol/L [facility] Calcium 8.4 (L) 8.5 - 10.5 mg/dL [facility] Estimated GFR >60 >=60 [facility] Comment: This estimated GFR (eGFR) value was calc ulated using the MDRD equation which has been validated on patients between t he ages of 18 and 70. The MDRD should not be used to assess kidney function in patients < 18 years of age or in patients with extremes of body mass, or in patients with acute kidney failure. This value should be multiplied by 1.2 f or patients. For further information please copy and past e the following links into your internet browser. [email or web address] [email or web address] Specimen Anatomical Collection Method Collection Time Receive d Time (Source) Location / / Volume Laterality Blood specimen 09/03/2016 9:37 PM 017 9:43 (specimen) EST PM EST Resulting Agency Comment Spec In Lab Devonte Olivera MD CHEMISTRY ORDERABLES Performing Organization Address City/State/ZIP Code Phon e Number [place] [phone]OS[address] LAB[address]ORY [address] (ABNORMAL) L-Lactate2 Whole Blood (09/03/2016 9:33 PM EST) P athologist Signature Lactate WB 2.8 (H) 0.5 - 2.2 [facility] mmol/L [facility] Specimen Anatomical Collection Method Collection Time Receive d Time (Source) Location / / Volume Laterality Blood specimen 09/03/2016 9:33 PM 017 9:33 (specimen) EST PM EST Devonte Felton Olivera MD CHEMISTRY ORDERABLES Performing Organization Address City/State/[place] [address] Request For 2nd Read CT Abdomen & Pelvis (09/03/2016 7:12 PM EST) Anatomical Region Laterality Modality Abdomen, Pelvis SO Specimen (Source) Anatomical Location Collection Method / Collectio n Time Received Time / Laterality Volume Impressions 09/03/2016 7:39 PM EST 1. ??No injuries to the internal abdominal or pelvic organs. 2. ??Subcutaneous hematomas in the left flank. 3. ??Left-sided rib fractures. Narrative 09/03/2016 7:39 PM EST EXAMINATION: ??REQUEST FOR 2ND READ CT ABDOMEN AND PELVIS CLINICAL HISTORY: ??eval trauma, known l eft rib fxs, What Modality is the exam? CT Scan, Body Part (please add comments as necessary): CT abd/pelvis, I believe a reinterpretation of this exam may alte r care of Patient. Yes TECHNIQUE: Helical CT of the abdomen and pelvis was performed following the intravenous administration of contrast. 100 cc of Omnipaque 350 was given. ??Oral contrast was administered. COMPARISON: ??None FINDINGS: Lung bases: ??No infiltrates are present . Small bulla are seen in the lower lungs bilaterally. There are no pleural effusi ons. Liver: ??Normal size, no focal lesions Bile ducts: ??Nondilated Gallbladder: ??No calcified gallstones. Normal caliber wall Pancreas: ??Normal Spleen: ??Normal Adrenals: ??Normal Kidneys: ??Normal Lymph Nodes: ??No enlarged lymph nodes. Bowel: Normal caliber. No adjacent infla mmatory changes or wall thickening. Peritoneum: No ascites or free air, no f luid collection. Vasculature: No significant atherosclero tic disease. Urinary Bladder: ? Abdominal wall: Patchy and strandy opaci ties in the subcutaneous tissues of the left flank, left lower back and adjacent to the left gluteal muscles may represent hematomas related to this anna ent's prior injury. Bones: Fractures of the lateral aspects of the left fifth, sixth and seventh ribs are visible. Ribs above this level are not included in the field of view. Procedure Note Seymour Calzada MD - 09/03/2016 EXAMINATION: REQUEST FOR 2ND READ CT ABD OMEN AND PELVIS CLINICAL HISTORY: eval trauma, known lef t rib fxs, What Modality is the exam? CT Scan, Body Part (please add comments as necessary): CT abd/pelvis, I believe a reinterpretation of this exam may alte r care of Patient. Yes TECHNIQUE: Helical CT of the abdomen and pelvis was performed following the intravenous administration of contrast. 100 cc of Omnipaque 350 was given. Oral contrast was administered. COMPARISON: None FINDINGS: Lung bases: No infiltrates are present. Small bulla are seen in the lower lungs bilaterally. There are no pleural effusi ons. Liver: Normal size, no focal lesions Bile ducts: Nondilated Gallbladder: No calcified gallstones. No rmal caliber wall Pancreas: Normal Spleen: Normal Adrenals: Normal Kidneys: Normal Lymph Nodes: No enlarged lymph nodes. Bowel: Normal caliber. No adjacent infla mmatory changes or wall thickening. Peritoneum: No ascites or free air, no f luid collection. Vasculature: No significant atherosclero tic disease. Urinary Bladder: Abdominal wall: Patchy and strandy opaci ties in the subcutaneous tissues of the left flank, left lower back and adjacent to the left gluteal muscles may represent hematomas related to this anna ent's prior injury. Bones: Fractures of the lateral aspects of the left fifth, sixth and seventh ribs are visible. Ribs above this level are not included in the field of view. IMPRESSION 1. No injuries to the internal abdominal or pelvic organs. 2. Subcutaneous hematomas in the left fl ank. 3. Left-sided rib fractures. Ghanshyam Camara MD IMG OUTSIDE INTERPRETATION O RDERABLES documented in this encounter Visit Diagnoses Diagnosis Fall, initial encounter Closed -punch intra-articular fractur e of distal radius, left, initial encounter Rib fracture Closed fracture of rib(s), unspecified Fall, initial encounter documented in this encounter Admitting Diagnoses Diagnosis Rib fracture Closed fracture of rib(s), unspecified documented in this encounter Administered Medications Inactive Administered Medications - up to 3 most recent administrations Medication Order MAR Action Action Date Dose Rate Site acetaminophen (TYLENOL) tablet Given 09/04/2016 12:56 PM EST 1,0 00 mg 1,000 mg 1,000 mg, Oral, EVERY 6 HOURS, First dose (after last modification) on Marzena 09/04/16 at 0715, Until Discontinued, Do not exceed 4,000 mg in 24 hours, Routine Given 09/04/2016 8:30 AM EST 1,000 mg hydroCHLOROthiazide (HYDRODIURIL) tablet 25 Given 09/04/2016 10:51 AM EST 25 mg mg 25 mg, Oral, DAILY, First dose on Marzena 09/04/16 at 1000, Until Discontinued, Routine HYDROmorphone (DILAUDID) 1 New Syringe/Cartridge 09/04/2016 1:[address] 50 mg mg/mL SHIPFITTER HELPER 50 mL Intravenous, SHIPFITTER HELPER ONLY, Starting on Marzena 09/04/16 at 0045, Until Marzen[place] 09/04/16 at 1009, Recovery (Recovery-Hospital Unit) iohexol (OMNIPAQUE) 350 mg/mL solution Given 09/03/2016 10:09 PM EST 26,250 mg 26,250 mg 26,250 mg (75 mL), Intravenous, ONCE PRN, 1 dose, Starting on Thu09/03/16 at 2208, Until Thu09/03/16 at 2209, Per Protocol, Warning Vesicant/Irritant Medication , Routine lactated ringers infusion 1,000 New Bag 09/04/2016 12:41 AM ES T 1,000 mLs 100 mL/hr mL 1,000 mL, at 100 mL/hr, Intravenous, CONTINUOUS, Starting on Marzena 09/04/16 at 0045, Until Marzena 09/04/16 at 1949, Saline lock iv > 500cc in 24 hours, Recovery (Recovery-Hospital Unit) lisinopril (PRINIVIL;ZESTRIL) tablet 20 mg Given 09/04/2016 10:51 AM EST 20 mg 20 mg, Oral, DAILY, First dose on Marzena 09/04/16 at 1000, Until Discontinued, Routine oxyCODONE (ROXICODONE) immediate release Given 09/04/2016 12:56 PM EST 5 mg tablet 5 mg 5 mg, Oral, EVERY 4 HOURS PRN, Starting on Marzena 09/04/16 at 0648, Until Marzena 09/04/16 at 1949, Pain, Routine Given 09/04/2016 8:29 AM EST 5 mg sodium chloride 0.9 % flush 5 mL Given 09/04/2016 8:30 AM EST 5 mLs 5 mL, Intravenous, 2 TIMES DAILY, First dose on Marzena 09/04/16 at 0045, Until Discontinued, Recovery (Recovery-Hospital Unit), Routine Given 09/04/2016 1:49 AM EST 5 mLs documented in this encounter Active and Recently Administered Medications Times are shown in EST. Scheduled Medication Order 09/02/2016 09/03/2016 09/04/2016 acetaminophen (TYLENOL) tablet 1,000 mg 0830 (Given - Provider: Belen Storm RN)1256 (Given - Provider: Belen Storm RN) 1,000 mg, Oral, EVERY 6 HOURS, First dos e on Marzena 09/04/16 at 0715, Until Discontinued, Do not exceed 4,000 mg in 24 hours, Routine enoxaparin (LOVENOX) injection 40 mg 0045 (Not Given - Provider: Yesi Wheat RN - Reason: Medication not available) 40 mg, Subcutaneous, NIGHTLY, First dose on Marzena 09/04/16 at 0045, Until Discontinued, Routine hydroCHLOROthiazide (HYDRODIURIL) tablet 25 mg 1051 (Given - Provider: Belen Storm RN) 25 mg, Oral, DAILY, First dose on Marzena 09/04/16 at 1000, Until Discontinued, Routine lisinopril (PRINIVIL;ZESTRIL) tablet 20 mg 1051 (Given - Provider: Belen Storm RN) 20 mg, Oral, DAILY, First dose on Marzena 09/04/16 at 1000, Until Discontinued, Routine sodium chloride 0.9 % flush 5 mL 0149 (Given - Provider: Yesi Wheat RN)0830 (Given - Provider: Belen Storm RN) 5 mL, Intravenous, 2 TIMES DAILY, First dose on Marzena 09/04/16 at 0045, Until Discontinued, Recovery (Recovery-Hospital Unit), Routine Continuous Medication Order 09/02/2016 09/03/2016 09/04/2016 HYDROmorphone (DILAUDID) 1 mg/mL SHIPFITTER HELPER 50 mL (CANCELED) 0145 (New Syringe/Cartridge - Provider: Yesi Wheat, KATTY) Intravenous, SHIPFITTER HELPER ONLY, Starting Marzena at 0045, Until Marzena 09/04/16 at 1009, Recovery (Recovery-Hospital Unit) lactated ringers infusion 1,000 mL 0041 (New Bag - Provider: Yesi Wheat, KATTY) 1,000 mL, at 100 mL/hr, Intravenous, CON TINUOUS, Starting Marzena 09/04/16 at 0045, Until Marzena 09/04/16 at 1949, Saline lock iv > 500cc in 24 hours, Recovery (Recovery-Hospital Unit) PRN Medication Order 09/02/2016 09/03/2016 09/04/2016 diphenhydrAMINE (BENADRYL) injection 25 mg 25 mg, Intravenous, EVERY 30 MIN PRN, 2 doses, Starting Marzena 09/04/16 at 0024, Until Marzena 09/04/16 at 1949, Itching, May repeat dose in 30 minutes if pruritis not relieved. Per SHIPFITTER HELPER order., Recovery (Recovery-Hospital Unit), Routine iohexol (OMNIPAQUE) 350 mg/mL solution 26,250 mg (COMPLETED) 2208 (Given - Provider: Ivonne Dean) 26,250 mg (75 mL), Intravenous, ONCE PRN , 1 dose, Starting 09/03/16 at 2208, Until 09/03/16 at 220, Per Protocol, Warning Vesicant/Irritant Medication , Routine lidocaine (XYLOCAINE) 10 mg/mL (1 %) injection 3 mg 3 mg (0.3 mL), Subcutaneous, ONCE PRN, 1 dose, Starting Marzena 09/04/16 at 0024, Until Marzena 09/04/16 at 1949, for discomfort with PIV insertion, Recovery (Recovery- Hospital Unit), Routine naloxone (NARCAN) injection 0.2 mg 0.2 mg, Intravenous, EVERY 1 MIN PRN, [facility], Until Marzena 09/04/16 at 194, Opioid Reversal, If respiratory rate less than 6 OR the patient is unable to arouse OR SpO2 is declining, Giv e for respiratory rate of less than or e qual to 6 and patient is heavily sedated or unarousable. May repeat every 60 seconds to increase respiratory rate. DO NOT exceed 2 mg total dose., Recovery (Recovery-Hospital Unit), Routine naloxone (NARCAN) injection 0.2 mg 0.2 mg, Intravenous, EVERY 1 MIN PRN, [facility] at 0024, Until Marzena 09/04/16 at 1948, Opioid Reversal, May repeat every 60 seconds to increase respiratory rate. DO NOT exceed 2 mg total dose. Per SHIPFITTER HELPER order., Recovery (Recovery-Hospital Unit), Routine ondansetron (ZOFRAN) injection 4 mg 4 mg, Intravenous, EVERY 30 MIN PRN, 2 d oses, Starting Marzena 09/04/16 at 0024, Until Marzena 09/04/16 at 1948, Nausea, May repeat dose once in 30 minutes if no relief from previous dose. If multiple antiemetic s are ordered, use ondansetron first, pr ochlorperazine second. Per SHIPFITTER HELPER order. , Recovery (Recovery-Hospital Unit) oxyCODONE (ROXICODONE) immediate release tablet 5 mg 0829 (Given - Provider: Belen Storm RN)1256 (Given - Provider: Belen Storm RN) 5 mg, Oral, EVERY 4 HOURS PRN, Starting Marzena 09/04/16 at 0648, Until Marzena 09/04/16 at 1949, Pain, Routine SHIPFITTER HELPER galicia Intravenous, CONTINUOUS PRN, Starting Th u 09/04/16 at 0024, Until Marzena 09/04/16 at 1948, Needed for nurse SHIPFITTER HELPER pump access., Recovery (Recovery-Hospital Unit) prochlorperazine (COMPAZINE) injection 5 mg 5 mg, Intravenous, EVERY 30 MIN PRN, 2 d oses, Starting Marzena 09/04/16 at 0024, Until Marzena 09/04/16 at 1949, Nausea, May repeat in 30 minutes if no relief from previous dose. HOLD if patient is sedated. Maximum dose is 40 mg in 24 hours. If multip le antiemetics are ordered, use ondansetron first, prochlorperazine second. Per SHIPFITTER HELPER order., Recovery (Recovery-Hospital Unit), Routine sodium chloride 0.9 % flush 5-20 mL 5-20 mL, Intravenous, EVERY 1 MIN PRN, S tarting Marzena 09/04/16 at 0024, Until Marzena 09/04/16 at 1949, flush, Flush pertains to all indwelling lines. Flush per protocol found in the job aid using the link provid ed on this medication record., Recovery (Recovery-Hospital Unit) , Routine documented in this encounter Care Teams Welding Machine Operator/Tender Relationship Specialty Start Date End Date Unknown PCP - General 08/14/16 09/17/16 None documented as of this encounter
--- OUTSIDE RECORDS SUMMARY | 2022-06-06 00:36 | XMS_ITS | Encounter Summary ---
:1965 Author Organization [facility] Address [address] [place] [address] Care Team Providers Name Role Phone Unknown Primary Care Provider Unavailable Encounter Details Date Type Department Care Team Description 09/03/2016 [facility] [place] [address] [place] [address] [phone] (Wo rk) Social History Tobacco Use Types [...] Mustapha Anderson MD [facility] DR NEPHROLOGY DEPT [place], [place] [address] (Wo rk) 07/01/2022 Office Visit Neurology Gerber, Devendra Tijerina, HORIZONTAL DRILL OPERATOR [facility] er [place] [address] (Wo rk) documented as of this encounter Procedures Procedure Name Priority Date/Time Associated Diagnosis Comme nts FILM LIBRARY Routine 09/03/2016 12:00 AM Pain Results for this STORAGE ONLY DX EST procedure ar e in UPPER EXTREMITY the results section. documented in this encounter Results Film Library- Storage Only DX Upper Extremity (09/03/2016 12:00 AM EST) Specimen (Source) Anatomical Location Collection Method / Collectio n Time Received Time / Laterality Volume Narrative JASMEET RAD - 09/03/2016 6:56 PM EST This exam is for storage only and is aut o-finalizing. Ghanshyam Muhammad MD IMHimanshu FILM LIBRARY ORDERABLES Performing Organization Address City/State/ZIP Code Phon e Number [facility] [place] documented in this encounter Visit Diagnoses Diagnosis Pain Generalized pain documented in this encounter Care Teams Medical Director Relationship Specialty Start Date End Date Unknown PCP - General 08/14/16 09/17/16 None documented as of this encounter
--- OUTSIDE RECORDS SUMMARY | 2022-06-06 00:36 | XMS_ITS | Encounter Summary ---
:1965 Author Organization [facility] Address [address] [place] [address] Care Team Providers Name Role Phone Unknown Primary Care Provider Unavailable Encounter Details Date Type Department Care Team Description 09/03/2016 Hospital Encounter Radiology Library at [facility] [place] [phone] Social History Tobacco Use Types Packs/Day [...] Lab 06/11/2022 Office Visit NephMustapha Honeycutt MD [facility] [place]PH[place]ANG [place]PT [place] [address] (Wo shanna) 07/01/2022 Office Visit Neurology Devendra Mayes APRN [facility] [address] [place] [address] (Wo rk) documented as of this encounter Procedures Procedure Name Priority Date/Time Associated Diagnosis Comme nts REQUEST FOR 2ND STAT 09/03/2016 7:12 PM Result s for this READ CT ABDOMEN AND EST procedur e are in PELVIS the results section. documented in this encounter Results Request For 2nd Read CT Abdomen & [...] fl ank. 3. Left-sided rib fractures. Ghanshyam Muhammad MD IMG OUTSIDE INTERPRETATION O RDERABLES documented in this encounter Visit Diagnoses Not on filedocumented in this encounter Care Teams Coconut Jelly Roller Relationship Specialty Start Date End Date Unknown PCP - General 08/14/16 09/17/16 None documented as of this encounter
--- OUTSIDE RECORDS SUMMARY | 2022-06-06 00:36 | XMS_ITS | Encounter Summary ---
:1965 Author Organization [facility] Address [address] [place] [address] Care Team Providers Name Role Phone None Primary Care Provider Unavailable Encounter Details Date Type Department Care Team Description 09/18/2016 Hospital Encounter XRay at [facility] King Left wrist injury, [address] [facility] [address] Gabe MD initial encounter [facility] [id number] [place] [address] [place] [address] Social History Tobacco Use Types Packs/Day Years Used Date Never Smoker Smokeless Tobacco: Current User Chew Alcohol Use Standard Drinks/Week Comments Yes 12 (1 standard drink = 0.6 oz pure alcoh ol) Sex Assigned at Date Recorded Not on file documented as of this encounter Medications at Time of Discharge Medication Sig Dispensed Refills Start Date End Date acetaminophen (TYLENOL) 325 Take 650 mg by 0 10/23/2016 mg Tablet mouth every 4 hours as needed for Pain. lisinopril (PRINIVIL;ZESTRIL) Take 20 mg by 0 04/14/2022 20 mg Tablet mouth daily. hydroCHLOROthiazide Take 25 mg by 0 (HYDRODIURIL) 25 mg Tablet mouth daily. documented as of this encounter Plan of Treatment Upcoming Encounters Date Type Specialty Care Team Description 06/11/2022 Laboratory Appointment Lab 06/11/2022 Office Visit Nephrology Mustapha Anderson MD [facility] [address] [facility]ARK DEPT [place], [place] [address] (Wo rk) 07/01/2022 Office Visit Neurology Devendra Maeys, FUEL DISTRIBUTION SYSTEM OPERATOR [facility] [place] [address] (Wo rk) documented as of this encounter Procedures Procedure Name Priority Date/Time Associated Diagnosis Comme nts XR WRIST 3 VIEWS Routine 09/18/2016 12:04 PM Left wrist injury , Results for this LEFT EST initial encounter procedure are in the results section. documented in this encounter Results XR Wrist Complete Min [...] Diagnoses Diagnosis Left wrist injury, initial encounter documented in this encounter Care Teams Podiatric Surgeon Relationship Specialty Start Date End Date None PCP - General 09/18/16 None documented as of this encounter
--- OUTSIDE RECORDS SUMMARY | 2022-06-06 00:36 | XMS_ITS | Encounter Summary ---
:1965 Author Organization [facility] Address [address] [place] [address] Care Team Providers Name Role Phone Unknown Primary Care Provider Unavailable Encounter Details Date Type Department Care Team Description 09/03/2016 [facility] [place] [address] [place] [address] [phone] (Wo rk) Social History Tobacco Use Types [...] 06/11/2022 Office Visit Nephrology Mustapha Anderson MD [facility] DR NEPHROLOGY DEPT [place], [place] [address] (Wo rk) 07/01/2022 Office Visit Neurology Gerber, Devendra Tijerina, MEDIA ANALYTICS MANAGER [facility] er [place] [address] (Wo rk) documented as of this encounter Procedures Procedure Name Priority Date/Time Associated Diagnosis Comme nts FILM LIBRARY Routine 09/03/2016 12:30 AM Pain Results for this STORAGE ONLY DX EST procedure ar e in CHEST the results section. documented in this encounter Results Film Library- Storage Only DX Chest (09/03/2016 12:30 AM EST) Specimen (Source) Anatomical Location Collection Method / Collectio n Time Received Time / Laterality Volume Narrative RAD - 09/03/2016 6:58 PM EST This exam is for storage only and is aut o-finalizing. Ghanshyam Muhammad MD IMHimanshu FILM LIBRARY ORDERABLES Performing Organization Address City/State/ZIP Code Phon e Number [facility] [place] documented in this encounter Visit Diagnoses Diagnosis Pain Generalized pain documented in this encounter Care Teams Appliance Assembler Relationship Specialty Start Date End Date Unknown PCP - General 08/14/16 09/17/16 None documented as of this encounter
--- NOTE | 2022-06-06 07:00 | DI.RAD_ITS ---
Exam(s) XR TIB/FIB LT EXAM: XR TIB/FIB LT CLINICAL HISTORY: Left leg pain x 6 yrsS89.92XA. TECHNIQUE: 2D digital imaging was performed. COMPARISON: No exams were available for comparison FINDINGS: Two views: No evidence of acute fracture. Advanced degenerative changes in the left knee noted, particularly in the medial compartment. Some degenerative changes also noted in the ankle. There is a osteochondroma off the medial aspect distal 3rd of the fibula. This measures approximatel y 3 cm at its base and extends medially for distance of 1.2 cm. Has benign appearance at this time. IMPRESSION: Fibular osteo chondroma. Degenerative changes in the knee. DATA REPOSITORY: RADIATION DOSE DELIVERED:
--- NOTE | 2022-06-06 07:00 | DI.MRI_ITS ---
Exam(s) MR BRAIN WO EXAM: MR BRAIN WO CLINICAL HISTORY: PRES, hx of stroke,I67.83 TECHNIQUE: Multiplanar multisequence MRI of the brain was performed. COMPARISON: CT CT HEAD WO from 04/05/2022 FINDINGS: CEREBRAL PARENCHYMA: There is no evidence of acute intracranial hemorrhage, mass effect, or shift of midline structures. There are no extra-axial fluid collections. Ventricles are not enlarged or shifted. There is no significant FLAIR signal abnormality in the cerebellar hemispheres nor within the shabbir, m idbrain, and thalami. There is abundant bilateral confluent periventricular signal abnormality consi stent with chronic small vessel disease. No evidence of restricted diffusion to suggest acute ischemic event. On susceptibility imaging there are multiple blooming foci consistent with multiple microhemorrhages. The largest of these is in the right thalamus and corresponds to the area of hemorrhage on the CT s can of 04/05/2022. PITUITARY GLAND: No mass nor parasellar abnormality. No obvious abnormality in the cavernous sinuses. FLOW VOIDS: The expected flow void are noted. No evidence of obvious aneurysm nor obvious vascular ma lformation. PARANASAL SINUSES: Mucosal thickening in the right frontal sinus and left maxillary sinus are again n oted. Lesser amount of mucosal thickening noted in the right maxillary sinus. Sphenoid sinuses are clear. ORBITS: No obvious findings. IMPRESSION: SWI sequence reveals multiple microhemorrhages throughout brain both in the the supra and infratentor ial compartments, with the largest of these being in the upper right thalamus corresponding to what i s described on the CT scan of 04/05/2022. There is no evidence of acute nor subacute hemorrhage at this time. No evidence of acute infarct. Significant mucosal disease again noted in the right frontal sinus and left maxillary sinus. DATA REPOSITORY:
--- NOTE | 2022-06-06 07:00 | DI.RAD_ITS ---
Exam(s) XR KNEE LT 3V AP,LAT,EDIUN EXAM: XR KNEE LT 3V AP,LAT,EDUIN CLINICAL HISTORY: Left knee pain from left leg injury 6yrs ago,S89.92XA. TECHNIQUE: 2D digital imaging was performed. COMPARISON: No exams were available for comparison FINDINGS: 3 views No evidence fracture or joint effusion. However, there is [id number] degenerative narrowing of the medial compartment. Lateral compartment exhibits normal height. Moderate degenerative change in th e patellofemoral compartment. On the lateral view there appears to be an osteochondral defect in the femoral condyle. IMPRESSION: Advanced degenerative changes in the medial compartment as described above. DATA REPOSITORY: RADIATION DOSE DELIVERED:
--- NOTE | 2022-06-06 07:00 | DI.RAD_ITS ---
Exam(s) XR HIP LT COMPLETE AP PELVIS EXAM: XR HIP LT COMPLETE AP PELVIS CLINICAL HISTORY: Hip pain from left leg injury 6yrs ago,S89.92XA. TECHNIQUE: 2D digital imaging was performed. COMPARISON: No exams were available for comparison FINDINGS: Four views: No evidence acute fracture nor joint space narrowing. Subtle irregularity in left side of the symphy sis pubis may be healed fracture site. SI joints unremarkable. IMPRESSION: No significant hip findings. Symphysis pubis findings as above. DATA REPOSITORY: RADIATION DOSE DELIVERED:
== END ==
PROVIDERS: PCP Nurse Practitioner Family; Visit Provider Nurse Practitioner Family
DX: D16.22 Benign neoplasm of long bones of left lower limb (principal); I67.83 Posterior reversible encephalopathy syndrome; M17.12 Unilateral primary osteoarthritis, left knee
CPT/HCPCS: 73562; 70551; 73502; 73590

== ENCOUNTER 2022-07-15 03:43 | Outpatient (CLI) | payer MEDICAID, SELFPAY ==
[2022-07-15 07:53] LABS: Abs Immature Grans 0.03 10^3/uL (0.0-0.06); Absolute Basophil Count 0.06 10^3/uL (0.0-0.2); Absolute Eosinophil Count 0.22 10^3/uL (0.0-0.7); Absolute Lymphocyte Count 0.82 10^3/uL (1.2-3.4); Absolute Monocyte Count 0.44 10^3/uL (0.1-0.8); Absolute Neutrophil Count 6.17 10^3/uL (1.2-6.7); Basophils % 0.8; Eosinophils % 2.8; HCT 39.9 % (40.0-50.0); HGB 13.5 g/dL (13.5-17.5); Immature Grans % 0.4; Lymphocytes % 10.6; MCH 30.2 pg (27.0-33.0); MCHC 33.8 % (32.0-36.0); MCV 89 fL (80-95); MPV 8.7 fL (8.0-11.0); Monocytes % 5.7; Neutrophils % 79.7; Platelet Count 267 10^3/uL (130-400); RBC 4.47 10^6/uL (4.36-5.78); RDW 12.2 % (11.8-14.1); RDW-SD 39.9 fL; WBC 7.74 10^3/uL (4.4-10.8)
[2022-07-15 07:59] LABS: Bilirubin Negative (Negative); Blood Negative (Negative); Clarity Clear (Clear); Glucose Negative (Negative); Ketones Negative (Negative); Leukocyte Esterase Negative (Negative); Nitrite Negative (Negative); Specific Gravity 1.015 (1.005-1.025); Urobilinogen 0.2 EU/dL (Up TO 0.2)
[2022-07-15 08:36] LABS: Anion Gap 10.4 mmol/L (3-11); BUN 33 mg/dL (7-18); CO2 28.6 mmol/L (21.0-32.0); CREATININE 2.6 mg/dL (0.70-1.30); Calcium 9.2 mg/dL (8.5-10.1); Chloride 101 mmol/L (98-107); Estimated GFR 27.55 (mL/min/1.73m2); Glucose 129 mg/dL (74-106); Potassium 3.5 mmol/L (3.5-5.1); Sodium 140 mmol/L (136-145)
[2022-07-15 18:16] LABS: PSA, Screening 0.4 ng/mL (<=3.5)
== END 2022-07-15 03:44 | disposition home or self-care (01) ==
PROVIDERS: PCP Nurse Practitioner Family; Visit Provider Nurse Practitioner Family
DX: I10 Essential (primary) hypertension (principal); N18.4 Chronic kidney disease, stage 4 (severe); Z12.5 Encounter for screening for malignant neoplasm of prostate; E78.5 Hyperlipidemia, unspecified; N40.0 Benign prostatic hyperplasia without lower urinary tract symptoms
CPT/HCPCS: 36415; 80048; 84153; 81003; 82043; 82570; 85025

== ENCOUNTER 2023-01-07 14:35 | Outpatient (CLI) | payer MEDICAID, SELFPAY ==
--- NOTE | 2023-01-07 14:30 | RT.EKG_ITS ---
APPROVED REPORT Exam: Resting ECG Reason for Exam: pre-op Patient Location: O HR:68 bpm ECG Measurements Heart Rate 68 AXIS VT 192 P 36 QRSd 111 QRS -18 QT 454 T 48 QTc 483 Conclusion Sinus rhythm...normal P axis, V-rate 50- 99 Normal Electrocardiogram
== END 2023-01-07 14:36 | disposition home or self-care (01) ==
LOC: DI.CM 14:36
PROVIDERS: PCP Nurse Practitioner Family; Visit Provider Nurse Practitioner Family
DX: Z01.818 Encounter for other preprocedural examination (principal)
CPT/HCPCS: 93010

== ENCOUNTER 2023-01-09 01:42 | Outpatient (CLI) | payer MEDICAID, SELFPAY ==
[2023-01-09 11:13] LABS: HGB 14.6 g/dL (13.5-17.5); MCH 29.8 pg (27.0-33.0); MCV 88 fL (80-95); MPV 9.3 fL (8.0-11.0); Platelet Count 236 10^3/uL (130-400); RDW 12.1 % (11.8-14.1); RDW-SD 39.1 fL; WBC 7.72 10^3/uL (4.4-10.8)
[2023-01-09 11:44] LABS: Anion Gap 6.2 mmol/L (3-11); BUN 32 mg/dL (7-18); CO2 29.8 mmol/L (21.0-32.0); CREATININE 2.1 mg/dL (0.70-1.30); Calcium 9.3 mg/dL (8.5-10.1); Chloride 104 mmol/L (98-107); Estimated GFR 35.59 (mL/min/1.73m2); Glucose 124 mg/dL (74-106); Potassium 3.7 mmol/L (3.5-5.1); Sodium 140 mmol/L (136-145)
== END 2023-01-09 01:43 | disposition home or self-care (01) ==
LOC: LBO 01:42
PROVIDERS: PCP Nurse Practitioner Family; Visit Provider Student in an Organized Health Care Education/Training Program
DX: M25.562 Pain in left knee (principal); M17.12 Unilateral primary osteoarthritis, left knee; Z01.818 Encounter for other preprocedural examination; Z01.812 Encounter for preprocedural laboratory examination
CPT/HCPCS: 36415; 80048; 85027

== ENCOUNTER 2023-01-09 10:35 | Outpatient (CLI) | payer MEDICAID, SELFPAY ==
--- NOTE | 2023-01-09 10:00 | DI.RAD_ITS ---
Exam(s) XR KNEE LT 1V XR STANDING ALIGNMENT EXAM: XR STANDING ALIGNMENT CLINICAL HISTORY: TKR planning. TECHNIQUE: 2D digital imaging was performed. Standing AP views were performed from the pelvis throu gh the ankles. Lateral view of the left knee. COMPARISON: CR XR TIB/FIB LT from 06/06/2022 CR XR KNEE LT 1V from 01/09/2023 FINDINGS: BONES: No acute fracture is present. No bony destructive lesion is seen. Leg length discrepancy: The right femoral head projects a few millimeters superior to the left. JOINTS: Knees: Severe narrowing of the medial femoral tibial joint space of the left knee with a bone -on-bone appearance. There is some flattening of the medial femoral condyle prominent periarticular spurring as well as varus angulation. Moderate narrowing of the medial femoral tibial joint space of the right knee. Mild periarticular spurring. The ankle joints not well seen due to patient's shoes in place. There is bilateral narrowing of the medial tibiotalar joint space. The hip joints are unremarkable. SOFT TISSUE: Normal. IMPRESSION: Severe degenerative changes of the medial femoral tibial joint space of the left knee.. Mild leg length discrepancy. DATA REPOSITORY: RADIATION DOSE DELIVERED:
== END 2023-01-09 10:36 | disposition home or self-care (01) ==
LOC: DIORS 10:36
PROVIDERS: PCP Nurse Practitioner Family; Referring Provider Nurse Practitioner Family; Visit Provider Physician Assistant
DX: M17.12 Unilateral primary osteoarthritis, left knee (principal); M21.751 Unequal limb length (acquired), right femur
CPT/HCPCS: 73560; 77073

== ENCOUNTER 2023-01-13 07:01 | Day surgery (SDC) | payer MEDICAID, SELFPAY ==
[2023-01-13] VITALS (12 sets, daily range): BP systolic 125–157; BP diastolic 82–97; PULSE 53–62; RESP 14–21; TEMP 36.2–37.1; O2SAT 95–100; BMI 36.3
[2023-01-13] MEDS: Acetaminophen 500 MG TAB 1000 MG PO (08:01)
[2023-01-13] MEDS: Lactated Ringers 1,000 ML 80 ML IV (08:01)
[2023-01-13] MEDS: Gabapentin 300 MG CAP PO (08:01)
--- NOTE | 2023-01-13 08:23 | W.ANESPRE ---
General Info Date of Service Date Performed: 01/13/23 Height: 5 ft 11 in Weight: 118.1 kg Body Mass Index (BMI): 36.3 Surgical Procedure: Operation Date: 01/13/23 09:40 Proposed Procedure Side Surgeon p Knee Total Arthroplasty w/OrthAlign, Cementless CR Left Diego Calvin MD Meds Allergies and Home Medications Allergies Allergy/AdvReac Type Severity Reaction Status Date / Time pollen extracts Allergy Unknown Unverified 01/13/23 08:26 Home Medication Medication Instructions Recorded chlorthalidone 25 mg tablet 25 mg PO DAILY #90 tabs 05/29/22 docusate sodium 100 mg capsule 100 mg PO BID PRN 06/30/22 sennosides 8.6 mg tablet (Senna 17.2 mg PO QHS PRN 07/01/22 Lax) amlodipine 10 mg tablet 10 mg PO DAILY #90 tabs 07/31/22 atorvastatin 20 mg tablet 20 mg PO DAILY #90 tabs 07/31/22 tamsulosin 0.4 mg capsule 0.8 mg PO DAILY #180 caps 07/31/22 labetalol 300 mg tablet 300 mg PO TID #180 tabs 01/01/23 acetaminophen 500 mg tablet 1,000 mg PO Q8H PRN pain #90 tabs 01/13/23 aspirin 81 mg tablet,delayed 81 mg PO BID 30 days #60 tabs 01/13/23 release celecoxib 200 mg capsule (Celebrex) 200 mg PO BID PRN #60 caps 01/13/23 dexamethasone 4 mg tablet 4 mg PO DAILY #2 tabs 01/13/23 gabapentin 300 mg capsule 300 mg PO QHS #14 caps 01/13/23 oxycodone 5 mg tablet 5 mg PO Q4H PRN #18 tabs 01/13/23 pantoprazole 40 mg tablet,delayed 40 mg PO DAILY #14 tabs 01/13/23 release Current Visit Medications: Current Medications Generic Name Dose Route Start Last Admin Trade Name Freq PRN Reason Stop Dose Admin Acetaminophen 1,000 mg 01/13/23 06:00 01/13/23 08:01 Acetaminophen 500 Mg Tab PO 01/13/23 16:00 1,000 mg PREOP WILLIAM Administration Gabapentin 300 mg 01/13/23 06:00 01/13/23 08:01 Gabapentin 300 Mg Cap PO 01/13/23 16:00 300 mg PREOP WILLIAM Administration Hydromorphone HCl 0.5 mg 01/13/23 07:31 Hydromorphone 2 Mg/Ml Syr IVP 02/12/23 07:30 Q2H PRN PRN Tranexamic Acid 1,000 mg/ 60 mls @ 360 mls/hr 01/13/23 06:00 Sodium Chloride IVPB 01/13/23 16:00 PREOP WILLIAM Ringer's Solution 1,000 mls @ 80 mls/hr 01/13/23 06:00 01/13/23 08:01 IV 01/13/23 23:59 80 mls/hr INFUSION WILLIAM Administration Cefazolin Sodium/Dextrose 2 gm in 50 mls @ 100 mls/hr 01/13/23 06:00 Ancef Duplex IVPB 01/13/23 16:00 PREOP WILLIAM IV Miscellaneous Supplies 1 each 01/13/23 06:00 Iv Access IV 01/13/23 23:59 DIRECTED WILLIAM Ondansetron HCl 4 mg 01/13/23 07:31 Ondansetron 4 Mg/2 Ml Vial IVP 02/12/23 07:30 Q6H PRN PRN Nausea Oxycodone HCl 0 mg 01/13/23 07:31 Oxycodone 5 Mg Tab PO 02/12/23 07:30 Q3H PRN PRN Pain Sodium Chloride 0 ml 01/13/23 06:00 Normal Saline Flush 10 Ml Syr IV 01/13/23 23:59 PRN PRN Sodium Chloride 0 ml 01/13/23 06:00 Normal Saline 10 Ml Vial IJ 01/13/23 23:59 DIRECTED PRN Sterile Water 0 ml 01/13/23 06:00 Water,Injection,Sterile 10 Ml Vial IJ 01/13/23 23:59 DIRECTED PRN PFSH Active Problems Active Problems: Problem Status Onset Code Obstructive sleep apnea G47.33 Thalamic hemorrhage with stroke ~03/2022 I61.9 CKD (chronic kidney disease) stage 4, GFR 15-29 ml/min N18.4 Essential hypertension I10 Primary osteoarthritis of left knee M17.12 Hyperlipidemia E78.5 Hypertensive retinopathy of both eyes H35.033 BPH (benign prostatic hyperplasia) N40.0 Medical History Medical History MARY (acute kidney injury) (~03/2022) Hypertensive emergency (~03/2022) PRES (posterior reversible encephalopathy syndrome) (~03/2022) Surgical History Surgical History History of surgical procedure wood splitter injury, right little finger Tobacco Smoking/Tobacco Use Status: Former Tobacco Use Smokeless tobacco user: chewing tobacco Passive smoking exposure: Yes Second hand exposure: Yes Alcohol Alcohol Intake: former Substance Use Substance use: Never Vital Signs and Lab Results Vital Signs Most Recent Vital Signs in EMR: Most Recent Vital Signs Temp Pulse Resp BP Pulse Ox 36.2 C L 61 16 139/88 98 01/13/23 07:36 01/13/23 07:36 01/13/23 07:36 01/13/23 07:36 01/13/23 07:36 Lab Results Blood Type / Crossmatch: No Data to Display Complete Blood Count: White Blood Count 7.72 10^3/uL (4.4-10.8) 01/09/23 11:09 Red Blood Count 4.90 10^6/uL (4.36-5.78) 01/09/23 11:09 Hemoglobin 14.6 g/dL (13.5-17.5) 01/09/23 11:09 Hematocrit 43.0 % (40.0-50.0) 01/09/23 11:09 Platelet Count 236 10^3/uL (130-400) 01/09/23 11:09 Complete Metabolic Panel: Sodium 140 mmol/L (136-145) 01/09/23 11:09 Potassium 3.7 mmol/L (3.5-5.1) 01/09/23 11:09 Chloride 104 mmol/L (98-107) 01/09/23 11:09 Carbon Dioxide 29.8 mmol/L (21.0-32.0) 01/09/23 11:09 BUN 32 mg/dL (7-18) H 01/09/23 11:09 Creatinine 2.1 mg/dL (0.70-1.30) H 01/09/23 11:09 Est GFR (CKD-EPI 2020) 35.59 (mL/min/1.73m2) 01/09/23 11:09 Calcium 9.3 mg/dL (8.5-10.1) 01/09/23 11:09 Glucose 124 mg/dL (74-106) H 01/09/23 11:09 Liver Function Panel: No Data to Display Coagulation Panel: No Data to Display Cardiac Panel: No Data to Display Arterial Blood Gas: No Data to Display Venous Blood Gas: No Data to Display Pancreas Panel: No Data to Display Thyroid Panel: No Data to Display Infectious Disease: No Data to Display Blood Cultures: No Data to Display Toxicology Panel: No Data to Display Anesthesia Assessment and Plan Anesthesia History Personal History: Awareness Under Anesthesia Family History: No Family History of Anesthesia Complications Exercise Tolerance Exercise Tolerance: Metabolic Equivalents>4 Pertinent Negatives Pertinent Negatives: No Symptoms of GERD Cardiac & Pulmonary Exam Cardiac Exam: Normal S1/S2 Heart Sounds Pulmonary Exam: Clear Bilateral Breath Sounds and No cough or Cold Cardiac and Pulmonary Comment:: SAMIA Implantable Cardiac Device Does patient have a Pacemaker or an ICD?: No Airway Exam Known Difficult Airway: No Mallampati Class: 3 Mouth Opening: Normal (> 3cm) Thyromental Distance: Greater than 3 cm Neck Range of Motion: Full ROM Neck Circumference: Normal Teeth Condition: Edentulous (uppers) Airway Comments: Bottom front four teeth in tact ASA Classification ASA Score: ASA 3 Emergency Case?: No NPO Status NPO Status: NPO Clears >2 hours, Solids >8 hours Anesthesia Plan Resuscitation Status: Full Code Anesthesia Technique: Spinal Anesthesia Airway Planned: Natural Airway Pain Management: Surgeon and patient request nerve block Monitors Used: Standard Monitors
[2023-01-13] MEDS: ceFAZolin 2 GM/50 ML BAG IVPB (09:24)
--- NOTE | 2023-01-13 10:47 | W.ANESNERVE ---
Nerve Block Single Injection Procedure Date and Time Date Performed: 01/13/23 Procedure Start: 13:18 Location Where Procedure Performed Procedure Location: Day Surgery Unit Reason Performed: Postoperative Analgesia Requesting Provider: Diego Calvin Timeout Performed Timeout Performed: Yes Monitoring Used ECG Sterility Sterility: Hand Hygiene, Surgical Cap, Surgical Mask, Sterile Gloves and Chlorhexidine Sedation Given During Procedure Sedation Given (Indicate Dose Given): Versed IV Dose:: 2mg Patient Mental Status Patient Mental Status: Awake Nerve Block 1st Nerve Block: Laterality: Left Block Type: Adductor Canal Ultrasound Image Saved?: Yes Needle / Catheter Used: 100mm SonoPlex II Local Anesthetic Bolus (Indicate Dose Given): Lidocaine used for local infiltration of skin, Injected in 3-5ml increments after negative blood aspiration and Bupivacaine 0.25% Dose:: 20mL Additives (Indicate Dose Given): None Ultrasound: Sterile probe cover and gel used Nerve Stimulator: Not Used Paresthesia: None Procedure Tolerated: No Complications and Patient tolerated well Procedure Outcome: Successful Performed By: Thierry Nelson Supervised By: Jon Gonzalez
[2023-01-13] MEDS: Normal Saline 10 ML VIAL IJ (12:19)
[2023-01-13] MEDS: HYDROmorphone 2 MG/ML SYR IVP ×2 (12:19→12:29)
--- NOTE | 2023-01-13 12:40 | W.ANESPOSTOP ---
Postoperative Evaluation Date, Time and Location Date Performed: 01/13/23 Time Performed: 12:41 Patient Location: PACU Vital Signs Most Recent Imported Vital Signs: Most Recent Vital Signs Temp Pulse Resp BP Pulse Ox 36.6 C 54 L 14 145/88 H 100 01/13/23 12:25 01/13/23 12:35 01/13/23 12:35 01/13/23 12:35 01/13/23 12:35 Pain Score Most Recent Pain Score: Most Recent Pain Score Pain Level 4 01/13/23 12:35 Assessment Mental Status: Awake (Alert & Oriented to Patient Baseline) Airway and Respiratory Function: Patent airway with normal (patient baseline) respiratory exam Cardiovascular Function: Hemodynamically Stable Hydration Status: Adequately Hydrated Nausea & Vomiting: No Nausea or Vomiting Pain: Pt. Denies Any Pain Peripheral Nerve Block: Regional nerve block not resolved at time of post operative discharge
--- NOTE | 2023-01-13 13:40 | PT.INIE ---
PT Notes Visit Reasons: Left knee DJD Physical Therapy Day Surgery Initial Evaluation Date: 01/13/2023 Referring Doctor: JENNIFER Ocasio PT Orders: PT CONSULT: S/P Ortho surgery Precautions: WBAT on left LE with AD. Patient Profile/Admitting Diagnosis: Cristofer is a 57-year-old male with degenerative joint disease of the left knee and is status post left total knee arthroplasty on postoperative day 0. PMHX: All Active Problems? Obstructive sleep apnea (Chronic) PSG 07/20/22. CPAP QHS Thalamic hemorrhage with stroke (Chronic ~03/2022) CKD (chronic kidney disease) stage 4, GFR 15-29 ml/min (Chronic) Essential hypertension (Chronic) Primary osteoarthritis of left knee (Chronic) Hyperlipidemia (Chronic) Hypertensive retinopathy of both eyes (Chronic) BPH (benign prostatic hyperplasia) (Chronic) Medical History? MARY (acute kidney injury) (~03/2022) Hypertensive emergency (~03/2022) PRES (posterior reversible encephalopathy syndrome) (~03/2022) Surgical History? History of surgical procedure wood splitter injury, right little finger Social History/Home Situation: Lives in the basement of sister's house with a ramp to enter. Independent with all aspects of ADLs prior to surgery. Equipment Owned/DME: [facility] Subjective: 4-5/10 in the L knee at rest, 7/10 pain with ambulation. Denies headache, chest pain, and lightheadedness throughout session. Objective: General Observation: Supine in bed. Cryocuff to left knee. Theron wraps to left LE. Sister Kendy present in the room during evalaution. Mental Status: Alert and oriented x4 Pain: 4?5/10 at rest, 7/10 with ambulation in the left knee ROM: Right Lower Extremity: Hip flexion WFL. Hip abduction WFL. Knee flexion WFL. Ankle dorsiflexion WFL. Ankle plantarflexion WFL. Left Lower Extremity: Hip flexion WFL. Hip abduction WFL. Knee flexion 45 degrees to 90 degrees. Knee extension -45 degrees. Ankle dorsiflexion WFL. Ankle plantarflexion WFL. Able to do x5 small range SLR but with extensor lag noted. Strength: Right Lower Extremity: Hip flexors 5/5. Hip abductors 5/5. Knee flexors 5/5. Knee extensors 5/5. Ankle dorsiflexors 5/5. Ankle plantarflexors 5/5. Left Lower Extremity:Hip flexors 4/5. Hip abductors 4/5. Knee flexors 3-/5. Knee extensors 3-/5. Ankle dorsiflexors 5/5. Ankle plantarflexors 5/5. Sensation: Intact as to pain and pressure in her lower extremities Bed Mobility/Transfers: Supine to sit standby assist Sit to stand contact-guard assist Stand to sit stand by assist Bed to chair stand by assist Gait: 100 feet of level surface ambulation using with front-wheeled walker with step-to gait pattern requiring contact-guard assist. L leg goes into IR and L knee into mild varum at midstance on R LE. Pain level increase of 7/10 in the right knee towards the end of activity. Balance: Static Sitting: Normal Dynamic Sitting: Normal Static Standing: Fair Dynamic Standing: Fair Special Tests: Mobility Limitations Standardized Measure [facility] AM-PAC 6 clicks Basic Mobility Inpatient Short Form: Raw Score: 22 CMS Score: 21% deficit Informed Consent/Education: Patient instructed in purpose of PT consult. Packet containing TKA exercise protocol has been given to patient. Education and training on initial set of exercises that can be done at home have been completed with patient and patient's sister. NEURO RE-ED: Facilitated potoperative engagement of L LE major muscle groups S/P L TKA to safely perform mobility, transfer, and level surface ambulation using front wheel walker. Patient with correct and safe performance of HEP as follows: Access Code: [email or web address] URL: [email or web address] Date: 01/13/2023 Prepared by: Hanane Weinberg Exercises - Supine Quad Set - 1 x daily - 7 x weekly - 1 sets - 10 reps - 5 hold - Supine Heel Slide - 1 x daily - 7 x weekly - 1 sets - 10 reps - 5 hold - Supine Ankle Pumps - 1 x daily - 7 x weekly - 1 sets - 10 reps - 5 hold - Small Range Straight Leg Raise - 1 x daily - 7 x weekly - 1 sets - 10 reps - 5 hold Assessment: Patient requires the use of a front-wheeled walker for all mobility ADL performance to maximize independence and reduce fall risk. Patient presents with clinical signs and symptoms consistent with current/admitting diagnoses that have resulted to mobility limitations, gait instability, generalized weakness, and impairment of motor control as demonstrated by the following impairment level findings: 1. Decreased strength to left knee major muscle groups 2. Impaired standing balance 3. Limitation of joint range of motion in left knee Impairments are contributing to the following functional limitations: 1. Inability to safely ambulate without assistive device 2. Increase completion time for mobility ADL performance 3. Increased fall risk Patient is assessed as a 80853 moderate complexity based on the following: History: 57-year-old male with impairment level findings, functional limitations, and past medical history as indicated above Examination: Demonstrable impairment in strength, balance, and mobility level with underlying impairments and functional limitations as documented above Presentation: Evolving Decision Makin moderate complexity Goals: N/A. PT evaluation and 1-2 treatment sessions only for functional mobility training using recommended AD and for HEP instruction. Plan of Care/Treatment Plan: N/A. PT evaluation and 1-2 treatment session only for functional mobility training using recommended AD and for HEP instruction. DISCHARGE RECOMMENDATIONS: Home when medically cleared by orthopedic surgeon. Recommend outpatient PT services to optimize functional mobility outcomes and facilitate return to independent community ambulation/vocational activities without an assistive device. TREATMENT CODE/TIME: [id number] x 20 minutes, [id number] x 23 minutes beginning at 13:53 PM. Thank you for the opportunity to participate in the care of this patient. Hanane Weinberg PT, DPT, CLT [facility] [place], [place]
--- NOTE | 2023-01-13 13:55 | DSE_ITS ---
Date of service: 01/13/23 Time of Service: 13:55 DS: Diagnosis Discharge Diagnosis (1) Primary osteoarthritis of left knee: Status: Chronic Discharge Plan Disposition Patient Disposition: Home Condition: Good Discharge Details Reason For Visit: Left knee DJD Attending Provider: Diego Calvin Primary Care Provider: Mirta Davis Home Meds and New Rx's Prescriptions: New acetaminophen 500 mg tablet 1,000 mg PO Q8H PRN Qty: 90 0RF Rx Instructions: Take two tablets up to every 8 hours as needed for pain aspirin 81 mg tablet,delayed release (DR/EC) 81 mg PO BID 30 Days Qty: 60 0RF celecoxib [Celebrex] 200 mg capsule 200 mg PO BID PRNQty: 60 0RF Rx Instructions: Take one tablet twice daily for pain and inflammation dexamethasone 4 mg tablet 4 mg PO DAILY Qty: 2 0RF Rx Instructions: Take one tablet once daily for two days gabapentin 300 mg capsule 300 mg PO QHS Qty: 14 0RF Rx Instructions: Take one tablet at bedtime oxycodone 5 mg tablet 5 mg PO Q4H PRNQty: 18 0RF Rx Instructions: Take one tablet up to every 4 hours as needed for severe postoperative pain pantoprazole 40 mg tablet,delayed release (DR/EC) 40 mg PO DAILY Qty: 14 0RF Continued chlorthalidone 25 mg tablet 25 mg PO DAILY Qty: 90 3RF amlodipine 10 mg tablet 10 mg PO DAILY Qty: 90 3RF atorvastatin 20 mg tablet 20 mg PO DAILY Qty: 90 3RF tamsulosin 0.4 mg capsule 0.8 mg PO DAILY Qty: 180 3RF docusate sodium 100 mg capsule 100 mg PO BID PRN sennosides [Senna Lax] 8.6 mg tablet 17.2 mg PO QHS PRN labetalol 300 mg tablet 300 mg PO TID Qty: 180 3RF Discontinued acetaminophen 325 mg capsule 325 mg PO ONCE PRN Discharge Instructions Additional Instructions: Total Knee Discharge Instructions Activity: The most important activity is to walk and to work on gentle motion (both flexion and extension). You should try to take short walks a few times a day. It is important that when resting you work on keeping the knee straight. Avoid putting a pillow behind the knee as this will encourage flexion. Work on range of motion exercises as provided by Physical Therapy. - Start outpatient physical therapy within 2 weeks. - You should wear the HARJIT hose on both legs for 2 weeks. You may remove these at night. You may also use any compression sock in place of the HARJIT hose. - Utilize [employer] to review exercises, see videos on exercises and obtain basic information pertaining to your surgery and your recovery. Dressing: Remove the Theron wrap by 2 days after your surgery and put on the HARJIT stocking given to you from the hospital. Keep the surgical dressing (underneath the THERON wrap) in place for at least one week. After the first week it may be removed and replaced with light gauze and tape or nothing. The wound and dressing may get wet after 3 days but avoid soaking the dressing or otherwise it will need to be changed. Many people prefer covering the dressing with cling wrap (saran wrap) to minimize it from getting soaked. If it gets wet, just pat dry. If it starts to peel off then it will need to be changed. Medications: - You should take Tylenol and anti-inflammatory Celebrex as your primary pain control medications. If the Celebrex is too expensive or not covered, please ca ll the office for another alternative (Advil/Ibuprofen or Naproxen/Aleve) - You have been prescribed a stronger pain medication Oxycodone for breakthrough pain, take as needed as prescribed. - You have also been prescribed a stomach acid reduction agent Pantoprozole to help reduce stomach acid and reflux. - You have been prescribed Gabapentin to take at night for restlessness and nerve pain. - You will be taking Aspirin 81mg twice a day for DVT prevention unless instructed otherwise. - You have also been prescribed Decadron to take to control post-operative nausea and pain. You will start this tomorrow. - If you have constipation you should take Colace or Miralax (both [id number]). It takes most people 3-4 days to have a bowel movement. Follow-up: 2 weeks If you have any acute concerns or questions, please do not hesitate to contact the office at [phone]. You may contact Dr. Calvin with any questions after hours through the hospital at [phone] or on his cell phone at [phone]. Stand Alone Forms: Anesthesia Discharge Inst., Gia.Nerve Block Instructions, Michelle Scott ([facility]) Referrals: Diego Calvin MD [ [facility] STAFF PHYSICIAN] - Equipment/Supplies: Walker Activity:: Elevate Remove Dressings/Wound Care:: Do Not Remove Shower/Bathe:: Cover Diet:: As Tolerated Discharge Orders Discharge Orders: Discharge Order (Routine); Ordered 01/13/23 Ordered By: Diego Calvin DS: Summary Time Spent with Patient providing and/or coordinating discharge services: Less than 30 minutes Status at Discharge Functional status at discharge: uses cane/walker Overall status at discharge: patient is progressing back to baseline Mental Status: mental status grossly normal Speech and Movement: speech and movement normal Mood: congruent mood Affect: normal affect Exam Psych Mental Status: mental status grossly normal Speech and Movement: speech and movement normal Mood: congruent mood Affect: normal affect PFSH All Active Problems Obstructive sleep apnea (Chronic) PSG 07/20/22. CPAP QHS Thalamic hemorrhage with stroke (Chronic ~03/2022) CKD (chronic kidney disease) stage 4, GFR 15-29 ml/min (Chronic) Essential hypertension (Chronic) Primary osteoarthritis of left knee (Chronic) Hyperlipidemia (Chronic) Hypertensive retinopathy of both eyes (Chronic) BPH (benign prostatic hyperplasia) (Chronic) Medical History MARY (acute kidney injury) (~03/2022) Hypertensive emergency (~03/2022) PRES (posterior reversible encephalopathy syndrome) (~03/2022) Surgical History History of surgical procedure wood splitter injury, right little finger Family History Mother , 59 Hypertension Brain cancer Diabetes Father , 74 Stroke Heart disease Brain aneurysm Peripheral vascular disease Sister Hypertension Depression Sister Hypertension Chronic bronchitis Maternal Grandfather No problems noted. Maternal Grandmother No problems noted. Paternal Grandfather No problems noted. Paternal Grandmother No problems noted. Social History Smoking/Tobacco Use Status: Former Tobacco Use tobacco type: smokeless tobacco Quit Date: 02/28/22 Tobacco: How many years used: 40 Smokeless tobacco user: chewing tobacco Second Hand Exposure: Yes Smoking risk assessment performed?: Yes Alcohol Intake: former Drug use: Never Caregiver/Support person: No Household members: none Housing: house Communication Needs: Hard of Hearing and Corrective Lenses Do you need help understanding health information?: Often Pets and animals: Yes Pets and animals: dog(s) Sexually active: No Do you think of yourself as: straight/heterosexual Current gender identity: male What is your relationship status?: never How often do you talk on the phone with friends or family?: once per week How often do you get together with friends or relatives?: decline to answer How often do you attend anabaptist or orthodox services?: decline to answer Do you belong to any clubs or organized social groups?: no Panel score (0-1 are the most socially isolated patients): 0 What type of physical activity do you participate in: none Anat/Confucianist: No preference Special anat needs: No Seatbelt use: always Helmet use: No Drive intox or ride w/intox mechanic driver: No Do you feel safe at home: Yes Do you feel safe in your relationship?: Yes Time Spent with Patient Time Spent with Patient: <45 minutes Time was spent: preparing to see the patient(eg.review tests), obtaining and/or reviewing separately otained hiistory and counseling the patient
--- NOTE | 2023-01-13 15:16 | ROE_ITS ---
Date of service: 01/13/23 Time of Service: 11:15 Operative Note Operative Note DATE OF PROCEDURE: 01/13/23 PRE-OP DIAGNOSIS: Left Knee Osteoarthritis with tibial varus deformity POST-OP DIAGNOSIS: same PROCEDURE: Left Total Knee Replacement with Intraoperative Navigation SURGEON: Diego Calvin [employer]CIAL CREDIT LEAD: Mary Doan ANESTHESIA TYPE: Spinal Refer to Anesthesia Record ESTIMATED BLOOD LOSS: 150 PATHOLOGY: none sent TOURNIQUET TIME: 0 COMPLICATIONS: None Patient was transported to: PACU Patient's condition: stable Implants: 1. Depuy Attune Cementless Posterior Stabilized Femoral Component, Size 9 2. Depuy Attune Cementless Rotating Platform Tibial Component, Size 8 3. Depuy Attune 9x10 PS/RP Poly 4. Depuy Attune Patellar Component, Size 38 Indications: I have seen Cristofer in clinic for symptoms of LEFT knee arthritis, confirmed with radiographic findings. Cristofer has exhausted nonoperative methods and was having significant limitations in daily function and desired better function and less pain. I discussed the technical details of a knee replacement. I explained the risks of the procedure to include, but not limited to, bleeding, infection, pain, stiffness, fracture, damage to nerves and vessels, damage to muscles and tendons, loosening, need for repeat procedure, blood clot and cardiopulmonary demise. Despite these risks, he elected to proceed. Findings: There was significant signs of arthritis throughout the knee involving all 3 compartments. There was notable deformity to the medial tibia. Procedure Description: Cristofer was greeted in the preoperative holding area where the correct side was identified and marked. The consent was reviewed with the patient and signed. The history and physical was updated. All questions were answered. Preoperative mediacations were administered: Acetaminophen 1000mg, Celebrex 400mg, and Gabapentin 300mg. An adductor canal block was then administered by the anesthesia team in the [facility]. Cristofer was taken back to the operating room. A spinal anesthestic was then administered. The patient was placed into the supine position on the operating room table. A nonsterile tourniquet was placed high onto the leg. Posts were placed for positioning during the procedure. All bony prominences were well padded. Prophylactic antibiotics in the form of Cefazolin were administered. 1g of Tranxemic Acid was given intravenously within 30 minutes of incision. The left leg was then prepped with Chloraprep and draped in a standard fashion with impervious stockinette. A second prep with Chloraprep was performed prior to application of Iodine impregnated skin protection. A timeout to confirm correct identity, side and site, procedure, allergies, anesthesia, and medical concerns was performed. With the knee in some flexion, a midline incision was made overlying the knee. Full thickness skin flaps were raised once the extensor mechanism was encountered. These were raised medially and laterally. Any bleeding was controlled with electrocautery. Once the extensor mechanism was fully exposed, a medial parapatellar arthrotomy was performed in a flexed position. All bleeding from the arthrotomy and the geniculate arteries was coagulated. A medial subperiosteal peel was performed with electrocautery to the midcoronal plane. Due to the significant varus deformity the entire medial tibial plateau was exposed. The fat pad was removed while keeping the patellar tendon protected. The anterior distal femur synovium was removed for later visualization. The ACL and PCL were resected and the anterior horn of the lateral meniscus was transected. The knee was then flexed with the patella everted. Large osteophytes from the tibia were removed. Large osteophytes from the femur were removed. A single starting pin was then placed 1cm anterior to the PCL insertion and the notch in the direction of the femoral head. The OrthoAlign device was applied over the pin. It was oriented to be in line with the epicondylar axis and the trochlear groove. It was then pinned into place. The navigation computer was then turned on and calibrated. The distal femur cut was set at 1 degree varus and 3 degrees flexion. The distal femur cutting guide then was positioned for a 9mm cut. The distal femur was cut with an oscillating saw while protecting the soft tissues. The tibia was then addressed. The OrthoAlign device was placed over the tibial tubercle and medial tibia and secured into position. Once again, OrthoAlign was calibrated and then set for a 2 degree varus cut and 6 degrees of posterior slope. With this locked into position, the cut thickness stylus was used to assess cut thickness. The medial side, most involved side, was set for a 2mm cut. This was then held in position and pinned into place with 2 additional pins and a cross pin for stability. The medial and lateral collateral ligaments were protected and the cut was performed. With this completed, it was assessed and noted to be of appropriate dimensions. The guide and OrthoAlign was removed. A spacer block was inserted and the knee was brought into extension to ensure enough space was present. The femur was then sized as a size 9. The Orthoalign gap balancing device was then placed in extension. This was used to ensure that the ligaments were properly balanced with up to 2 to 3 mm laxity laterally compared medially. The extension gap was measured as 16mm. The knee was then brought into 90 degrees of flexion and the ligament lead die molder was once again placed. Under the same amount of force the flexion gap was measured. The Attune specific jig was placed and the flexion gap was made to match the extension gap. The 4-in-1 cutting guide was the placed. An david wing was used to confirm appropriate position of the anterior cut to avoid notching. This cutting guide was ensured to be flush on the cut surface and then pinned into place with headed pins. While protecting the soft tissues, quad tendon, and collateral ligaments, the anterior and posterior cuts were performed with a saw. The posterolateral cut barely skimmed bone. The central two pins were removed and the posterior and anterior chamfers were cut next. The notch-cutting guide was placed. This was pinned to lateralize the femoral component as much as possible while keeping it flush on the cut surface. This was then pinned into position. A saw was used to make the notch cut. A rasp smoothed the cut surfaces. The medial and lateral menisci were removed. A trial femoral component was then inserted, impacted down to the cut surfaces, and the lug holes were drilled. A provisional trial tibial component was placed and the knee was brought through range of motion. There was noted to be excellent extension and flexion. There was no significant instability. The polyethylene was trialed until there was good flexion and extension with excellent stability to the medial and lateral collaterals. The patella was tracking without thumbs. A size 10mm polyethylene component provided the best range of motion and stability with less than 2mm gapping with medial and lateral stress and full extension without significant hyperextension. The tibial cut surface was fully exposed. The tibia was then sized as a 8. The tibia had been previously marked during trialing to correspond to the center of the tibial component to help with rotation. The trial was aligned to this carlos, approximately rotated to the medial 1/3rd of the tibial tubercle. The trial was pinned into place. The tibia was prepared with a reamer and a keel punch and lug holes. The knee was then brought into extension and the patella was measured as 28mm. Using the patellar clamp and cut guide, this was resected to a flat surface with at least 13mm of thickness remaining. The size 38 patella fit the best. This was oriented and then clamped into position. The lugs were drilled. The trial components were removed. The final components were opened on the back table. The periosteal and capsular tissues, especially posteriorly, around the knee were then systematically injected with a periarticular cocktail consisting of 246mg of Ropivacaine, 0.5mg of Epinephrine, 0.08mg of Clonidine, and 30mg of Ketorolac, diluted to 100cc. On the back table, with the implants opened, the cement was mixed. One batch of high viscosity cement was prepared with vacuum assistance. After the cement was ready a small amount was placed on the cut surface of the patella and the patellar button was clamped into position and held. While the cement was hardening, the cementless knee components were placed. Starting with the tibial component, the tibia was subluxed anteriorly and the lug holes of the component were lined up. The tibia was then impacted with an impactor and mallet until the tibial component was in contact with the tibia. The final polyethylene component was inserted. Then, the femoral component was inserted. The lug holes were aligned and the component was impacted into position. The knee was irrigated with Surgiphor Betadine solution. This was allowed to sit in the knee for 3 minutes and then it was thoroughly irrigated out with saline. After the cement had finally cured, approximately 15min, the clamp was removed from the patella and the knee was taken through range of motion. The patella was tracking with a no-thumbs technique. The capsule was then reapproximated with a No. 1 Vicryl at multiple locations. The capsule was finally closed with a No. 2 Stratafix, barbed suture. Deep tissues were then reapproximated with 0 Vicryl and 2-0 Vicryl. The skin was closed with a running 3-0 Monocryl in a subcuticular fashion. This was reinforced with skin glue. A Mepilex silver dressing was applied along with a [id number] CLIF wrap. A CryoCuff was applied. Cristofer was transferred to the hospital bed without difficulty an suffering no apparent complication. Cristofer has a good prognosis. Physical therapy will start today and without restrictions, weight-bearing as tolerated. Aspirin 81mg BID will be used for DVT prophylaxis.
== END 2023-01-13 15:10 | disposition home or self-care (01) ==
PROVIDERS: PCP Nurse Practitioner Family; Visit Provider Student in an Organized Health Care Education/Training Program
PROC: (CPT 27447; principal; 2023-01-13 09:30)
DX: M17.12 Unilateral primary osteoarthritis, left knee (principal); I12.9 Hypertensive chronic kidney disease with stage 1 through stage 4 chronic kidney disease, or unspecified chronic kidney disease; N18.9 Chronic kidney disease, unspecified; G47.33 Obstructive sleep apnea (adult) (pediatric)
CPT/HCPCS: 27447; 20985; 76942; 97162; 97530; J0690; J1100; J1170; J2250; J2405; J2704

== ENCOUNTER 2023-01-29 10:49 | Outpatient (CLI) | payer MEDICAID, SELFPAY ==
--- NOTE | 2023-01-29 10:15 | DI.RAD_ITS ---
Exam(s) XR KNEE LT 1V EXAM: XR KNEE LT 1V CLINICAL HISTORY: 1ST POST OP L TKA. TECHNIQUE: 2D digital imaging was performed. COMPARISON: No exams were available for comparison FINDINGS: Single lateral view: Satisfactory position alignment components of the prosthesis. No fracture or loosening evident on th is single view. IMPRESSION: Satisfactory appearance on the lateral view. DATA REPOSITORY: RADIATION DOSE DELIVERED:
--- NOTE | 2023-01-29 10:15 | DI.RAD_ITS ---
Exam(s) XR STANDING ALIGNMENT EXAM: XR STANDING ALIGNMENT CLINICAL HISTORY: 1ST POST OP L TKA. TECHNIQUE: 2D digital imaging was performed. COMPARISON: CR XR STANDING ALIGNMENT from 01/09/2023 FINDINGS: 3 views There has been interval placement of a left knee prosthesis which appears satisfactory. No fracture or loosening. There is moderate narrowing of the medial compartment the opposite-right knee. Latera l compartment the right knee appears un. Hips unremarkable. No osseous lesions. IMPRESSION: As above. DATA REPOSITORY: RADIATION DOSE DELIVERED:
== END 2023-01-29 10:50 | disposition home or self-care (01) ==
LOC: DIORS 10:49
PROVIDERS: PCP Nurse Practitioner Family; Visit Provider Student in an Organized Health Care Education/Training Program
DX: Z96.652 Presence of left artificial knee joint (principal); Z47.1 Aftercare following joint replacement surgery
CPT/HCPCS: 73560; 77073

== ENCOUNTER 2023-03-24 02:33 | Outpatient (CLI) | payer MEDICAID, SELFPAY ==
--- NOTE | 2023-03-24 | DI.US_ITS ---
Exam(s) US RENAL EXAM: US RENAL CLINICAL HISTORY: ACUTE KIDNEY INJURY,N17.9,CHRONIC KIDNEY DISEASE,N18.32 TECHNIQUE: Ultrasound of both kidneys performed using standard protocol. COMPARISON: CT ABD PELVIS WITH CONTRAST from 09/03/2016 US POCUS EXAM from 01/13/2023 FINDINGS: RIGHT KIDNEY: Measures 11.2 cm in length. No cysts evident. Normal cortical thickness and corticomedullary differen tiation .No solid masses No intrarenal calculi nor hydronephrosis. LEFT KIDNEY: Measures 10.1 cm in length. No cysts evident. Normal cortical thickness and corticomedullary differe ntiaion. No solids masses. No intrarenal calculi nor hydonephrosis. URINARY BLADDER: Prevoid volume is 100 cc Postvoid volume is 142 cc No evidence of obvious bladder mass nor diverticuli. Prostate gland appears mildly enlarged, measuring 3.7 x 2.1 by 3.6 cm, for volume of 15.2 ml Ureterovesical jets: Both identified and appear symmetrical IMPRESSION: 1. No significant ultrasound findings in the kidneys. 2. Increased postvoid residual volume in the urinary bladder. Patient apparently stated he was diff iculty completely emptying his bladder. Mildly enlarged prostate. DATA REPOSITORY:
== END 2023-03-24 02:53 ==
LOC: DI 02:34
PROVIDERS: PCP Nurse Practitioner Family; Visit Provider Internal Medicine Nephrology
DX: N18.32 Chronic kidney disease, stage 3b; R39.14 Feeling of incomplete bladder emptying
CPT/HCPCS: 76770

== ENCOUNTER 2024-01-15 02:06 | Outpatient (CLI) | payer MEDICAID, SELFPAY ==
[2024-01-15 08:08] LABS: Hemoglobin A1C 6.1 % (<5.7)
[2024-01-15 08:40] LABS: ALT 21 U/L (16-63); AST 8 U/L (15-37); Albumin 3.6 g/dL (3.4-5.0); Alkaline Phosphatase 62 U/L (46-116); Anion Gap 11.6 mmol/L (3-11); BUN 43 mg/dL (7-18); Bilirubin, Total 0.6 mg/dL (0.2-1.0); CO2 26.4 mmol/L (21.0-32.0); CREATININE 2.1 mg/dL (0.70-1.30); Calcium 9.4 mg/dL (8.5-10.1); Calculated LDL 52 mg/dL (<100); Chloride 103 mmol/L (98-107); Cholesterol 105 mg/dL (<200); Estimated GFR 35.37 (mL/min/1.73m2); Glucose 151 mg/dL (74-106); HDL Cholesterol 45 mg/dL (40-60); Potassium 3.7 mmol/L (3.5-5.1); Sodium 141 mmol/L (136-145); Total Protein 7.7 g/dL (6.4-8.2); Triglyceride 43 mg/dL (<150)
[2024-01-15 19:03] LABS: PSA, Screening 0.5 ng/mL (<=4.5)
== END 2024-01-15 02:07 | disposition home or self-care (01) ==
PROVIDERS: PCP Nurse Practitioner Family; Visit Provider Nurse Practitioner Family
DX: I10 Essential (primary) hypertension (principal); Z12.5 Encounter for screening for malignant neoplasm of prostate
CPT/HCPCS: 36415; 80053; 80061; 84153; 83036

== ENCOUNTER 2024-01-15 08:40 | Outpatient (CLI) | payer MEDICAID, SELFPAY ==
--- NOTE | 2024-01-15 08:15 | DI.RAD_ITS ---
Exam(s) XR KNEE LT 2V AP,LAT EXAM: XR KNEE LT 2V AP,LAT CLINICAL HISTORY: ANNUAL F/U L TKA. TECHNIQUE: 2D digital imaging was performed. Two images were obtained. AP and lateral views were ob tained. COMPARISON: CR XR KNEE LT 3V AP,LAT,EDUIN from 06/06/2022 CR XR KNEE LT 1V from 01/29/2023 FINDINGS: BONES: There are stable post operative changes of a left total knee replacement present. No fracture or dislocation. JOINTS: The orthopedic hardware is in good position. No evidence of hardware loosening. SOFT TISSUE: Normal. IMPRESSION: Stable left total knee replacement. DATA REPOSITORY: RADIATION DOSE DELIVERED:
== END 2024-01-15 08:41 | disposition home or self-care (01) ==
LOC: DIORS 08:40
PROVIDERS: PCP Nurse Practitioner Family; Referring Provider Nurse Practitioner Family; Visit Provider Physician Assistant
DX: Z96.652 Presence of left artificial knee joint (principal); Z47.1 Aftercare following joint replacement surgery
CPT/HCPCS: 73560

== ENCOUNTER 2024-12-30 02:52 | Outpatient (CLI) | payer OTHER, SELFPAY ==
[2024-12-30 07:35] LABS: Abs Immature Grans 0.16 10^3/uL (0.0-0.06); Absolute Basophil Count 0.06 10^3/uL (0.0-0.2); Absolute Eosinophil Count 0.29 10^3/uL (0.0-0.7); Absolute Neutrophil Count 6.59 10^3/uL (1.2-6.7); Basophils % 0.7 %; Eosinophils % 3.3 %; HCT 41.1 % (40.0-50.0); HGB 14.3 g/dL (13.5-17.5); Immature Grans % 1.8 %; Lymphocytes % 12.5 %; MCH 29.7 pg (27.0-33.0); MCHC 34.8 % (32.0-36.0); MCV 85 fL (80-95); MPV 9.3 fL (8.0-11.0); Monocytes % 6.8 %; Neutrophils % 74.9 %; Platelet Count 239 10^3/uL (130-400); RBC 4.81 10^6/uL (4.36-5.78); RDW 12.3 % (11.8-14.1); RDW-SD 38.2 fL
[2024-12-30 07:43] LABS: Hemoglobin A1C 5.9 % (<5.7)
[2024-12-30 08:05] LABS: ALT 18 U/L (16-63); AST 12 U/L (15-37); Albumin 3.6 g/dL (3.4-5.0); Alkaline Phosphatase 66 U/L (46-116); Anion Gap 8.8 mmol/L (3-11); BUN 44 mg/dL (7-18); Bilirubin, Total 0.7 mg/dL (0.2-1.0); CO2 27.2 mmol/L (21.0-32.0); CREATININE 2.4 mg/dL (0.70-1.30); Calcium 9.3 mg/dL (8.5-10.1); Chloride 103 mmol/L (98-107); Estimated GFR 29.95 (mL/min/1.73m2); Glucose 147 mg/dL (74-106); PHOSPHORUS 3.3 mg/dL (2.6-4.7); Potassium 3.5 mmol/L (3.5-5.1); Sodium 139 mmol/L (136-145); Total Protein 7.5 g/dL (6.4-8.2)
[2024-12-30 08:39] LABS: Vitamin D 25 Total 32 ng/mL (30-100)
[2024-12-30 18:50] LABS: HBs Antibody, Quant <3.1 mIU/mL (See Note); Hep B Surface Ab Negative (See Note); Hepatitis B Core Antibody Negative (Negative); Hepatitis B Surface Antigen Negative (Negative)
[2024-12-30 18:53] LABS: HIV-1/2 Ag & Ab Screen Negative (Negative)
[2024-12-30 20:00] LABS: Parathyroid Hormone,Intact 76 pg/mL (19-88)
[2024-12-30 20:36] LABS: Hepatitis C Ab w Rflx HCV PCR Negative (Negative)
== END 2024-12-30 02:53 | disposition home or self-care (01) ==
LOC: LBO 02:53
PROVIDERS: PCP Nurse Practitioner Family; Visit Provider Nurse Practitioner Family
DX: Z11.4 Encounter for screening for human immunodeficiency virus [HIV] (principal); R73.03 Prediabetes; N18.30 Chronic kidney disease, stage 3 unspecified; Z11.59 Encounter for screening for other viral diseases; N18.4 Chronic kidney disease, stage 4 (severe)
CPT/HCPCS: 36415; 80053; 82306; 86704; 86706; 86803; 87340; 87389; 83036; 83970; 84100; 85025

== ENCOUNTER 2025-01-16 15:33 | Outpatient (CLI) | payer OTHER, SELFPAY ==
--- NOTE | 2025-01-16 14:45 | DI.RAD_ITS ---
Exam(s) XR KNEE LT 2V AP,LAT EXAM: XR KNEE LT 2V AP,LAT CLINICAL HISTORY: ANNUAL F/U L KNEE. TECHNIQUE: 2D digital imaging was performed. Four views. COMPARISON: CR XR KNEE LT 2V AP,LAT from 01/15/2024 FINDINGS: BONES: No acute fracture is present. No bony destructive lesion is seen. JOINTS: The knee prosthesis is normally aligned. No joint effusion is seen. SOFT TISSUE: Normal. IMPRESSION: Stable appearance of knee prosthesis. DATA REPOSITORY: RADIATION DOSE DELIVERED:
== END 2025-01-16 15:34 | disposition home or self-care (01) ==
LOC: DIORS 15:33
PROVIDERS: PCP Nurse Practitioner Family; Referring Provider Nurse Practitioner Family; Visit Provider Student in an Organized Health Care Education/Training Program
DX: Z96.652 Presence of left artificial knee joint (principal); Z47.1 Aftercare following joint replacement surgery
CPT/HCPCS: 73560